=== PATIENT | male | born 1970 | race Caucasian/White ===

== ENCOUNTER 2017-12-12 10:59 | Day surgery (SDC) | payer OTHER ==
[2017-12-07 13:47] VITALS: BMI 27.4
[~2017-12-12 10:59] MED LIST: DEXAMETHASONE SOD PHOSPHATE 10 MG/ML 1 ML VIAL IV ONE; HYDROmorphone 1 MG/ML 1 ML SYRINGE IVP PRN; LACTATED RINGERS 1,000 ML IV SCH; LIDOCAINE 1% 20 ML VIAL (10MG/ML) FOR IV START INTRADERMA PRN; ceFAZolin IN SWFI 2 GM/20 ML SYRINGE IVP ONE
[2017-12-12 11:24] VITALS: RESP 16; TEMP 97.1
[2017-12-12] MEDS ORDERED: ONDANSETRON 4 MG/2 ML VIAL IVP ONE (11:37)
[2017-12-12] MEDS ORDERED: MIDAZOLAM 2 MG/2 ML VIAL IV ONE (11:39)
[2017-12-12] MEDS ORDERED: LIDOCAINE 2% INJ 20 MG/ML SQ ONE ×3 (12:27→13:16)
[2017-12-12] MEDS ORDERED: BUPIVACAINE (PF) 0.5% 30 ML VIAL SQ ONE ×3 (12:27→13:16)
[2017-12-12] MEDS ORDERED: PROPOFOL 10 MG/ML 20 ML VIAL IV ONE (12:51)
[2017-12-12] MEDS ORDERED: fentaNYL (PF) 50 MCG/ML 2 ML AMP ONE (12:51)
[2017-12-12] MEDS ORDERED: LIDOCAINE 1% INJ 10MG/ML (20 ML MDV) ONE (12:51)
[2017-12-12] MEDS ORDERED: LACTATED RINGERS 1,000 ML IV ONE (13:27)
[2017-12-12 14:43] VITALS: BP 116/73; PULSE 93
--- NOTE | 2017-12-12 21:07 | OP ---
OPERATIVE REPORT DATE OF SERVICE: 12/12/2017 PREOPERATIVE DIAGNOSIS: Bilateral carpal tunnel syndrome. FINAL DIAGNOSIS: Bilateral carpal tunnel syndrome. PROCEDURE: Bilateral carpal tunnel release. DESCRIPTION OF PROCEDURE: The following procedure was done identically on each side. The exception was that the tourniquet was used on the right upper arm, and on the left an Esmarch was used to backwrap the forearm for hemostasis. The patient was taken to the Operative Suite where a sedation was administered by the Department of Anesthesia. I then performed a local injection along the line of the incision with a combination of Marcaine and Xylocaine both without epinephrine. The hand was then prepped and draped in the usual manner. The arm was elevated, exsanguinated and the cuff was inflated to 250 mm of mercury. A longitudinal incision was made along the ring finger ray distal to the wrist crease. Dissection was taken through the skin and subcutaneous tissue, initially sharp through the skin and then blunt through the subcutaneous tissue to ensure protection of any potential terminal transverse branches of the palmar cutaneous nerve. The palmar fascia was then incised under direct vision longitudinally exposing the transverse carpal ligament. The transverse carpal ligament also was incised under direct vision. The dissection was then continued proximally beneath the skin under direct vision to release the distal forearm fascia. The median nerve was then reflected free of tenosynovium to ensure no adhesions. The tourniquet was then released. The wound was then irrigated and the skin was closed with a running 5-0 nylon suture. A soft bulky dressing was applied including a volar plaster splint holding the wrist in a neutral slightly extended position. The patient was then taken to the Recovery Room in satisfactory condition. MMODL / IJN: [id number] /
== END 2017-12-12 15:00 | disposition home or self-care (01) ==
LOC: OR 10:59
PROVIDERS: ATTEND Orthopaedic Surgery Hand Surgery
DX: G56.03 Carpal tunnel syndrome, bilateral upper limbs (principal); Z79.899 Other long term (current) drug therapy; Z72.0 Tobacco use
CPT/HCPCS: 64721; J2001 ×2; J2250; J1100; J2405; J3010; J2704

== ENCOUNTER → 2018-04-14 | Outpatient (CLI) | payer OTHER ==
--- NOTE | 2018-04-14 13:24 | XR ---
Lumbar spine HISTORY: Pain, sciatica 3 views of the lumbar spine There is an anterolisthesis grade 1 L5-S1. Anterior margin of L1 shows wedging. There is minimal retr olisthesis grade 1 L1-2. Loss of disc height present T12-L1, L1-2 and there is a kyphosis centered at L1. Sclerosis present in the posterior elements of the lower lumbar spine. There is multilevel spond ylosis. Question spondylolysis at L5. IMPRESSION: Suspect spondylolysis, spinal listhesis L5-S1. There is degenerative disc disease. Facet arthropathy. Kyphosis centered at L1. Question prior anterior compression fracture L1 which may be ch ronic. Lumbar MRI or CT may be of benefit.
== END | disposition home or self-care (01) ==
LOC: RADXRMAIN 12:35
PROVIDERS: ATTEND Physician Assistant
DX: M51.16 Intervertebral disc disorders with radiculopathy, lumbar region (principal); M46.96 Unspecified inflammatory spondylopathy, lumbar region
CPT/HCPCS: 72100

== ENCOUNTER → 2018-04-25 | Outpatient (CLI) | payer OTHER ==
--- NOTE | 2018-04-25 11:23 | MR ---
EXAMINATION TYPE: MR lumbar spine wo con DATE OF EXAM: 04/25/2018 COMPARISON: Plain film dated 04/14/2018 HISTORY: Low back pain, Amaury leg pain TECHNIQUE: Multiplanar, multisequence images of the lumbar spine were acquired. T12-L1: Posterior broad-based disc bulge results in mild to moderate central canal stenosis. There is some facet arthropathy. Circumferential extension of endplate disc complex encroaches somewhat on th e foramina. No abnormal hyperintensity to suggest subacute fracture within the L1 vertebral body. L1-L2: Posterior broad-based disc bulge causes anterior mass effect on the thecal sac but only minima l spinal stenosis, circumferential extension of endplate disc complex encroaches somewhat on the neur al foramina. L2-L3: Broad-based posterior disc bulge causes mild anterior mass effect on the thecal sac. No signif icant foraminal encroachment or central stenosis. L3-L4: No significant spinal stenosis. Broad-based posterior disc bulge causes mild anterior mass eff ect on the thecal sac. There is facet arthropathy with hypertrophy ligamentum flavum. Circumferential disc bulge encroaches somewhat towards the neural foramina. L4-L5: Posterior broad-based disc bulge causes mild anterior mass effect on the thecal sac. Circumfer ential extension endplate disc complex encroaches on the foramina. There is facet arthropathy with hy pertrophy of the ligamentum flavum causing posterior lateral mass effect on the thecal sac. L5-S1: The listhesis contributes to cause spinal stenosis which is moderate to severe, posterior exte nsion of endplate disc complex is also present. Bilateral foraminal encroachment is present. There is marked facet arthropathy change. Lumbar segments are intact. No paraspinal masses are identified. Conus medullaris has a normal appe arance. Anterolisthesis grade 1 present at L5-S1, bilateral spondylolysis suspected at L5, better see n on the right than on the left. There is accentuation of patient's lordosis centered at L1-2, the an terior deformity at L1. There is multilevel spondylosis, endplate discogenic marrow signal change. Lo ss of disc height signal greatest at L5-S1 and L1-2, loss of disc signal L2-3, T12-L1 compatible disc desiccation and degenerative disc disease. There may be a slight spinal curvature. IMPRESSION: Spondylolisthesis, degenerative disc disease, multilevel facet arthropathy, spinal stenosis or tabatha inal encroachment. Additional findings above.
== END | disposition home or self-care (01) ==
LOC: RADMRIMAIN 09:45
PROVIDERS: ATTEND Family Medicine
DX: M48.07 Spinal stenosis, lumbosacral region (principal); M51.25 Other intervertebral disc displacement, thoracolumbar region; M51.26 Other intervertebral disc displacement, lumbar region; M43.17 Spondylolisthesis, lumbosacral region; M51.36 Other intervertebral disc degeneration, lumbar region; M47.816 Spondylosis without myelopathy or radiculopathy, lumbar region; M46.97 Unspecified inflammatory spondylopathy, lumbosacral region
CPT/HCPCS: 72148

== ENCOUNTER 2019-08-11 12:56 | Emergency (ER) | payer OTHER ==
[2019-08-11 13:02] VITALS: RESP 18
[2019-08-11] MEDS ORDERED: SODIUM CHLORIDE 0.9% 1,000 ML IV STA (13:26)
[2019-08-11 13:51] LABS: Basophils % (A) 1 %; Eosinophils # (A) 0.1 k/uL (0-0.7); Eosinophils % (A) 2 %; HGB 16.1 gm/dL (13.0-17.5); Lymphocytes # (A) 2.1 k/uL (1.0-4.8); Lymphocytes % (A) 29 %; MCH 32.9 pg (25.0-35.0); MCHC 33.5 g/dL (31.0-37.0); MCV 98.2 fL (80.0-100.0); Mean Platelet Volume 7.6; Monocytes # (A) 0.3 k/uL (0-1.0); Monocytes % (A) 4 %; Neutrophils # (A) 4.4 k/uL (1.3-7.7); Neutrophils % (A) 62 %; Platelet Count 288 k/uL (150-450); RBC 4.89 m/uL (4.30-5.90); RDW 12.8 % (11.5-15.5); WBC 7.1 k/uL (3.8-10.6)
[2019-08-11 13:53] LABS: Appearance,Urine Clear (Clear); Bilirubin,Urine Negative (Negative); Blood,Urine Negative (Negative); Color,Urine Light Yellow; Glucose,Urine (UA) Negative (Negative); Ketones,Urine Negative (Negative); Leukocyte Esterase,Urine Negative (Negative); Nitrite,Urine Negative (Negative); PH, Urine 6.5 (5.0-8.0); Protein,Urine Negative (Negative); Specific Gravity,Urine 1.009 (1.001-1.035); Urobilinogen,Urine <2.0 mg/dL (<2.0)
[2019-08-11 14:02] LABS: ALT 18 U/L (4-49); AST 25 U/L (17-59); African American GFR (CKD) >90 (>60 ml/min/1.73 sqM); Albumin 4.2 g/dL (3.5-5.0); Alkaline Phosphatase 81 U/L (38-126); Amylase 56 U/L (30-110); Anion Gap 5 mmol/L; Blood Urea Nitrogen 15 mg/dL (9-20); Calcium 9.4 mg/dL (8.4-10.2); Carbon Dioxide 25 mmol/L (22-30); Chloride 107 mmol/L (98-107); Glucose 99 mg/dL (74-99); Non-African American GFR(CKD) >90 (>60 ml/min/1.73 sqM); Potassium 4.5 mmol/L (3.5-5.1); Sodium 137 mmol/L (137-145); Total Bilirubin 0.4 mg/dL (0.2-1.3); Total Protein 6.8 g/dL (6.3-8.2)
[2019-08-11] MEDS ORDERED: MORPHINE SULFATE 4 MG/ML SYRINGE IVP STA (14:46)
--- NOTE | 2019-08-11 14:46 | CT ---
EXAMINATION TYPE: CT abdomen pelvis w con DATE OF EXAM: 08/11/2019 COMPARISON: HISTORY: Abdominal pain, possible hernia CT DLP: 654 mGycm Automated exposure control for dose reduction was used. CONTRAST: Performed with IV Contrast, patient injected with 100 ml mL of Isovue 300. Images were obtained from the diaphragm to the floor the pelvis with IV contrast. Lung bases are clear. There is no pleural effusion. Liver spleen stomach pancreas gallbladder appear normal. Bile ducts are nondilated. There is no adrenal mass. Kidneys show satisfactory contrast opacification. There is no hydronephrosi s. Ureters are not dilated. There is no retroperitoneal adenopathy. Delayed images show normal renal excretion. Bladder distends smoothly. There is no inguinal hernia. There is some mild prostate calcification. There is no evidence of a bowel obstruction. There is large bowel gas down to the rectum. There is no evidence of free air. There is no ascites. There is no mesenteric edema. Appendix is lateral and bes t seen on the coronal images. Appendix appears normal. There is some deformity of the L1 vertebral richard dy with slight anterior wedging that is consistent with an old mild compression fracture. There is a first-degree L5-S1 spondylolisthesis with right side L5 spondylolysis. The bony pelvis appears intact . IMPRESSION: Normal appendix. No sign of acute abdomen and pelvis.
--- NOTE | 2019-08-11 14:46 | ED ---
General Adult HPI - General Chief complaint: Urogenital Stated complaint: Abd/Groin Pain Source: patient, RN notes reviewed Mode of arrival: wheelchair Limitations: physical limitation - History of Present Illness Initial comments: 49-year-old male presents to the emergency department for a chief complaint of abdominal pain. Patient states that about 3 weeks ago he started to have a lump in his left groin area. Patient states he pointed it out to his doctor who said it was a hernia and scheduled him an appointment with a surgeon for Tuesday. He did not have any pain at that time. However 2 days ago he started to have pain in this area so came to the emergency room. Patient states it hurts to stand up but feels better with bending over.Patient has no other complaints at this time including shortness of breath, chest pain, nausea or vomiting, headache, or visual changes. - Related Data Home Medications Medication Instructions Recorded Confirmed SUMAtriptan SUCCINATE [Imitrex] 50 mg PO ONCE PRN 12/12/17 08/11/19 Allergies Allergy/AdvReac Type Severity Reaction Status Date / Time aspirin AdvReac Nausea Verified 08/11/19 14:56 Review of Systems ROS Statement: Those systems with pertinent positive or pertinent negative responses have been documented in the HPI. ROS Other: All systems not noted in ROS Statement are negative. Past Medical History Additional Past Medical History / Comment(s): carpel tunnel ana wrists History of Any Multi-Drug Resistant Organisms: None Reported Past Surgical History: Orthopedic Surgery Additional Past Surgical History / Comment(s): rt shoulder,vasectomy Past Anesthesia/Blood Transfusion Reactions: No Reported Reaction Past Psychological History: No Psychological Hx Reported Smoking Status: Current every day smoker Past Alcohol Use History: None Reported Past Drug Use History: None Reported - Past Family History Mother Family Medical History: No Reported History General Exam Limitations: physical limitation General appearance: alert, in no apparent distress Head exam: Present: atraumatic, normocephalic, normal inspection Eye exam: Present: normal appearance, PERRL, EOMI. Absent: scleral icterus, conjunctival injection, periorbital swelling ENT exam: Present: normal exam, mucous membranes moist Neck exam: Present: normal inspection. Absent: tenderness, meningismus, lymphadenopathy Respiratory exam: Present: normal lung sounds bilaterally. Absent: respiratory distress, wheezes, rales, rhonchi, stridor Cardiovascular Exam: Present: regular rate, normal rhythm, normal heart sounds. Absent: systolic murmur, diastolic murmur, rubs, gallop, clicks GI/Abdominal exam: Present: soft, normal bowel sounds. Absent: distended, tenderness, guarding, rebound, rigid exam: Present: other (Slight bulge to the left groin area) Course Vital Signs 08/11/19 08/11/19 12:57 15:00 Temperature 98 F 98.1 F Pulse Rate 62 67 Respiratory 18 18 Rate Blood Pressure 135/85 123/95 O2 Sat by Pulse 99 98 Oximetry Medical Decision Making - Medical Decision Making Vitals are stable. CBC CMP unremarkable. Urinalysis is negative. CT abdomen and pelvis shows a normal appendix without sign of acute abdomen or pelvis. However there is an addendum that does show a left-sided inguinal hernia containing fat. No evidence of a bowel obstruction. Patient was given morphine and had significant improvement pain. Sling much better at this time. Patient has an appointment with Dr. Lazo on Tuesday and will follow-up at that time. However I did discussed return parameters including signs of an incar cerated or strangulated hernia for which he should return for immediately. - Lab Data Result diagrams: 08/11/19 13:40 08/11/19 13:38 Lab Results 08/11/19 08/11/19 08/11/19 Range/Units 13:38 13:38 13:38 WBC (3.8-10.6) k/uL RBC (4.30-5.90) m/uL Hgb (13.0-17.5) gm/dL Hct (39.0-53.0) % MCV (80.0-100.0) fL MCH (25.0-35.0) pg MCHC (31.0-37.0) g/dL RDW (11.5-15.5) % Plt Count (150-450) k/uL Neutrophils % % Lymphocytes % % Monocytes % % Eosinophils % % Basophils % % Neutrophils # (1.3-7.7) k/uL Lymphocytes # (1.0-4.8) k/uL Monocytes # (0-1.0) k/uL Eosinophils # (0-0.7) k/uL Basophils # (0-0.2) k/uL Sodium 137 (137-145) mmol/L Potassium 4.5 (3.5-5.1) mmol/L Chloride 107 (98-107) mmol/L Carbon Dioxide 25 (22-30) mmol/L Anion Gap 5 mmol/L BUN 15 (9-20) mg/dL Creatinine 0.73 (0.66-1.25) mg/dL Est GFR (CKD-EPI)AfAm >90 (>60 ml/min/1.73 sqM) Est GFR (CKD-EPI)NonAf >90 (>60 ml/min/1.73 sqM) Glucose 99 (74-99) mg/dL Plasma Lactic Acid Brett 1.3 (0.7-2.0) mmol/L Calcium 9.4 (8.4-10.2) mg/dL Total Bilirubin 0.4 (0.2-1.3) mg/dL AST 25 (17-59) U/L ALT 18 (4-49) U/L Alkaline Phosphatase 81 (38-126) U/L Total Protein 6.8 (6.3-8.2) g/dL Albumin 4.2 (3.5-5.0) g/dL Amylase 56 (30-110) U/L Lipase 55 (23-300) U/L Urine Color Light Yellow Urine Appearance Clear (Clear) Urine pH 6.5 (5.0-8.0) Ur Specific [place] 1.009 (1.001-1.035) Urine Protein Negative (Negative) Urine Glucose (UA) Negative (Negative) Urine Ketones Negative (Negative) Urine Blood Negative (Negative) Urine Nitrite Negative (Negative) Urine Bilirubin Negative (Negative) Urine Urobilinogen <2.0 (<2.0) mg/dL Ur Leukocyte Esterase Negative (Negative) 08/11/19 Range/Units 13:40 WBC 7.1 (3.8-10.6) k/uL RBC 4.89 (4.30-5.90) m/uL Hgb 16.1 (13.0-17.5) gm/dL Hct 48.0 (39.0-53.0) % MCV 98.2 (80.0-100.0) fL MCH 32.9 (25.0-35.0) pg MCHC 33.5 (31.0-37.0) g/dL RDW 12.8 (11.5-15.5) % Plt Count 288 (150-450) k/uL Neutrophils % 62 % Lymphocytes % 29 % Monocytes % 4 % Eosinophils % 2 % Basophils % 1 % Neutrophils # 4.4 (1.3-7.7) k/uL Lymphocytes # 2.1 (1.0-4.8) k/uL Monocytes # 0.3 (0-1.0) k/uL Eosinophils # 0.1 (0-0.7) k/uL Basophils # 0.0 (0-0.2) k/uL Sodium (137-145) mmol/L Potassium (3.5-5.1) mmol/L Chloride (98-107) mmol/L Carbon Dioxide (22-30) mmol/L Anion Gap mmol/L BUN (9-20) mg/dL Creatinine (0.66-1.25) mg/dL Est GFR (CKD-EPI)AfAm (>60 ml/min/1.73 sqM) Est GFR (CKD-EPI)NonAf (>60 ml/min/1.73 sqM) Glucose (74-99) mg/dL Plasma Lactic Acid Brett (0.7-2.0) mmol/L Calcium (8.4-10.2) mg/dL Total Bilirubin (0.2-1.3) mg/dL AST (17-59) U/L ALT (4-49) U/L Alkaline Phosphatase (38-126) U/L Total Protein (6.3-8.2) g/dL Albumin (3.5-5.0) g/dL Amylase (30-110) U/L Lipase (23-300) U/L Urine Color Urine Appearance (Clear) Urine pH (5.0-8.0) Ur Specific [place] (1.001-1.035) Urine Protein (Negative) Urine Glucose (UA) (Negative) Urine Ketones (Negative) Urine Blood (Negative) Urine Nitrite (Negative) Urine Bilirubin (Negative) Urine Urobilinogen (<2.0) mg/dL Ur Leukocyte Esterase (Negative) Disposition Clinical Impression: Inguinal hernia Disposition: HOME SELF-CARE Condition: Good Instructions (If sedation given, give patient instructions): Inguinal Hernia (ED) Additional Instructions: Please follow-up with your surgeon in 1-2 days. Please return here to the emergency room if you have any worsening symptoms such as severe pain with bulge or uncontrolled vomiting. Is patient prescribed a controlled substance at d/c from ED?: No Referrals: Reginald Wesley DO [Primary Care Provider] - 1-2 days Time of Disposition: 16:12
[2019-08-11 15:32] VITALS: TEMP 98.1
[2019-08-11 16:26] VITALS: BP 133/88; PULSE 62
== END 2019-08-11 16:24 | disposition home or self-care (01) ==
LOC: EC 12:56
DX: K40.90 Unilateral inguinal hernia, without obstruction or gangrene, not specified as recurrent (principal); F17.200 Nicotine dependence, unspecified, uncomplicated; Z88.6 Allergy status to analgesic agent
CPT/HCPCS: 36415; 80053; 82150; 83605; 83690; 85025; 81003; 74177; 99284; 96374; 96361; J2270; Q9967

== ENCOUNTER → 2019-08-14 | Outpatient (CLI) | payer OTHER | END | disposition home or self-care (01) | LOC: LABPAT 12:14 | PROVIDERS: ATTEND Surgery Plastic and Reconstructive Surgery | DX: Z01.810 Encounter for preprocedural cardiovascular examination (principal) | CPT/HCPCS: 93005 ==

== ENCOUNTER → 2019-09-07 | Day surgery (SDC) | payer OTHER ==
[2019-09-04 09:41] VITALS: BMI 23.6
--- NOTE | 2019-09-06 21:09 | P.GSHP ---
History of Present Illness H&P Date: 09/07/19 CHIEF COMPLAINT: Inguinal hernia, left HISTORY OF PRESENT ILLNESS: The patient is a 49-year-old male who presents with a history of swelling and pain along the left groin. He's noted increased swelling including pain of the area. Now he presents for repair of his inguinal hernia. PAST MEDICAL HISTORY: Please see list. PAST SURGICAL HISTORY: Please see list. MEDICATIONS: Please see list. ALLERGIES: Please see list. SOCIAL HISTORY: Please see list. FAMILY HISTORY: Please see list. REVIEW OF ORGAN SYSTEMS: CONSTITUTIONAL: No reports of fevers or chills. No reports of weight loss despite prior attempts. GI: Denies any blood in stools or constipation. PHYSICAL EXAM: VITAL SIGNS: Stable GENERAL: Well-developed pleasant male in no acute distress. HEENT: No scleral icterus. Extraocular movements grossly intact. Moist buccal mucosa. NECK: Supple without lymphadenopathy. CHEST: Unlabored respirations. Equal bilateral excursions. CARDIOVASCULAR: Regular rate and rhythm. Distal 2+ pulses. ABDOMEN: Soft, nondistended. No peritoneal signs. Palpable defect of the left groin. MUSCULOSKELETAL: No clubbing, cyanosis, or edema. ASSESSMENT: 1. Inguinal hernia, left PLAN: 1. Recommend proceeding with a robotic inguinal repair with mesh with possible bilateral approach. 2. Benefits and risks of surgical intervention was discussed including possibility of open technique. 3. DVT prophylaxis. 4. Antibiotic prophylaxis. Past Medical History Additional Past Medical History / Comment(s): migraines, hernia History of Any Multi-Drug Resistant Organisms: None Reported Past Surgical History: Orthopedic Surgery Additional Past Surgical History / Comment(s): rt shoulder rotator cuff surgery ,vasectomy, ana carpal tunnel Past Anesthesia/Blood Transfusion Reactions: No Reported Reaction Smoking Status: Current every day smoker - Past Family History Mother Family Medical History: No Reported History Medications and Allergies Home Medications Medication Instructions Recorded Confirmed Type SUMAtriptan succinate [Imitrex] 50 mg PO ONCE PRN 12/12/17 09/04/19 History Acetaminophen Tab [Tylenol] 650 mg PO Q4H PRN 08/22/19 09/04/19 History Allergies Allergy/AdvReac Type Severity Reaction Status Date / Time aspirin AdvReac Nausea Verified 09/04/19 09:30
[~2019-09-07] MED LIST changes: +ACETAMINOPHEN TAB 500 MG TAB PO STA; +BUPIVACAINE (PF) 0.25% 30 ML VIAL SQ ONE; +GABAPENTIN 300 MG CAP PO STA; +GLYCOPYRROLATE 0.2 MG/ML 2 ML VIAL ONE; +HEPARIN SODIUM,PORCINE 5,000 UNIT/ML 1 ML VIAL SQ ONE; +HYDROmorphone 0.5 MG/0.5 ML SYRINGE IVP PRN; -HYDROmorphone 1 MG/ML 1 ML SYRINGE IVP PRN; +LACTATED RINGERS 1,000 ML IV ONE; +LIDOCAINE 1% (10MG/ML) FOR IV START INTRADERMA PRN; -LIDOCAINE 1% 20 ML VIAL (10MG/ML) FOR IV START INTRADERMA PRN; +LIDOCAINE 1% INJ 10MG/ML (20 ML MDV) ONE; +MIDAZOLAM 2 MG/2 ML VIAL IV ONE; +NEOSTIGMINE 1 MG/ML 10 ML VIAL ONE; +ONDANSETRON 4 MG/2 ML VIAL IVP ONE; +PHENYLEPHRINE-0.9% NACL SYG 1 MG/10 ML SYRINGE ONE; +PROPOFOL 10 MG/ML 20 ML VIAL IV ONE; +ROCURONIUM BROMIDE 10 MG/ML 5 ML VIAL IV ONE; +ROPIVACAINE 5 MG/ML 30 ML VIAL ONE; +SCOPOLAMINE 1.5MG/72HR PATCH TRANSDERM ONE; +SUCCINYLCHOLINE CHLORIDE 100 MG/5 ML SYR IV ONE; +TAMSULOSIN 0.4 MG CAP.ER.24H PO STA; -ceFAZolin IN SWFI 2 GM/20 ML SYRINGE IVP ONE; +ePHEDrine SULFATE/0.9% NACL/PF 50 MG/5 ML SYRINGE IV ONE; +fentaNYL (PF) 50 MCG/ML 2 ML AMP IV ONE; +fentaNYL (PF) 50 MCG/ML 2 ML AMP ONE
--- NOTE | 2019-09-07 12:54 | P.OP ---
Date of Procedure: 09/07/19 Description of Procedure: Date of Procedure: 09/07/19 SURGEON: IRAM JOHNSON MD PREOPERATIVE DIAGNOSES: 1. Initial left inguinal hernia 2. History of migraines 3. Tobacco use POSTOPERATIVE DIAGNOSES: 1. Initial left inguinal hernia, direct 2 cm, reducible 2. History of migraines 3. Tobacco use OPERATION: 1. Robotic assisted da Sergey Xi laparoscopic reduction and repair of left inguinal hernia repair with ventralight ST mesh, 11.4 cm. Anesthesia: GETA, local Estimated Blood Loss (ml): 20 Pathology: other (Left inguinal hernia sac) Condition: stable Disposition: floor COMPLICATIONS: None. Operative Findings: 1. Direct initial left inguinal hernia, 2 cm, type III 2. Unremarkable right groin INDICATIONS: The patient is a 49-year-old gentleman who presents with history of left inguinal hernia. Now presents for definitive surgical intervention. Laparoscopic versus open and robotic approaches were discussed. Benefits and risks including bleeding, infection, injury to the vas deferens as well as sterility and chronic groin pain were reviewed. Placement of mesh was also described. Informed consent was obtained. DESCRIPTION: In the preoperative area, the patient was marked with indelible marker along the left groin. The patient was brought to the operating room and laid in supine position. After general induction, the abdomen had been prepped and draped in standard sterile fashion. Ioban draping was also placed. Prior to incision, a timeout protocol was confirmed with surgical team regarding patient's name including procedures to be performed and location along the left groin. Initial positioning for the robotic assisted ports were selected whereby 20 cm superior to the target anatomy, 0 degree 5 mm laparoscopic trocar entry was performed at the left upper quadrant. The abdomen was insufflated to 15 mmHg which he had tolerated well. Diagnostic laparoscopy demonstrated in the left groin with a direct left inguinal hernia 2 cm in size. The right groin was unremarkable. Next, along the epigastrium, 8 mm robot trocar was placed. An 8-mm robotic trocar was placed under direct visualization at the right upper quadrant. The 5 mm port was exchanged for a 8 mm trocar. All trocars were positioned between 8 to 10-cm apart from each other. The patient was placed in steep reverse Trendelenburg position, 16. The [employer] XI robot was primed, draped, prepared for docking along the upper abdomen of the patient. I then went to the [employer] console. The orthodontic assistant was at bedside for exchange of the robot arms and equipment. At the left groin, 2 cm direct inguinal hernia was identified. The hernia sac was evaginated whereby the peritoneum was scored using Endo scissors with cautery. Once completely reduced into the abdominal cavity, the peritoneal sac of the hernia was identified. The sac was resected and then passed off for further pathological analysis. The size of the hernia defect was 2 cm with intraoperative films obtained. Using a 2-0 VLOC nonabsorbable, the peritoneal defect of the left inguinal hernia site was closed using a pursestring suture. The defect was found to be completely closed with complete reduction of the left inguinal hernia was confirmed. As an onlay, an 11.[address] mesh by [employer] was cut in half and entered into the abdominal cavity via the 8 mm trocar. The mesh was tacked to the pelvis using 2-0 VLOC x 9-inch length sutures. The robot was undocked from the patient's bedside. I then rescrubbed into the case. Insufflation was released from the abdominal cavity and all instruments were removed from the abdominal cavity. The rest of incisions were reapproximated using 4-0 Monocryl in a running subcuticular fashion. Local anesthetic was placed along the incision including for a groin block. Incisions were cleansed using dilute hydrogen peroxide. Liquid glue was applied to the skin. At the end of the procedure, the needle, sponge and instrument counts had been verified correct by the surgical services manager. The patient had tolerated the procedure well and was taken to the postanesthesia care unit in stable condition. Intraoperative findings were described to the patient's family who were pleased with the level of care. Plan - Discharge Summary Discharge Rx Participant: Yes New Discharge Prescriptions: New Acetaminophen Tab [Tylenol Tab] 500 mg PO Q6H PRN #30 tablet PRN Reason: Pain Continue SUMAtriptan succinate [Imitrex] 50 mg PO BID PRN PRN Reason: Migraine Headache Discharge Medication List SUMAtriptan succinate [Imitrex] 50 mg PO BID PRN 12/12/17 [History] Acetaminophen Tab [Tylenol Tab] 500 mg PO Q6H PRN #30 tablet 09/07/19 [Rx] Follow up Appointment(s)/Referral(s): Iram Johnson MD [STAFF PHYSICIAN] - 09/20/19 1:20 pm Patient Instructions/Handouts: *Surgery [facility] - (Anesthesia) Discharge Instructions Outpatient Surgery, Laparoscopic Herniorrhaphy (DC) Activity/Diet/Wound Care/Special Instructions: No lifting over 10 pounds in 2 weeks until Sep 20June shower. No bath tub soaks for two weeks until Sep 20 Diet as tolerated. No driving while on narcotics. Use Tylenol and ibuprofen or Aleve scheduled for the next 24-48 hours for best pain relief. Use ice along incisions for the today to prevent swelling. Discharge Disposition: HOME SELF-CARE
[2019-09-07 13:04] VITALS: TEMP 97
--- NOTE | 2019-09-07 13:55 | P.ANPRN ---
Procedure Note - Anesthesia - Nerve Block Performed Bilateral Transversus Abdominis Single Time Out Performed: Yes (1023) Date of Procedure: 09/07/19 Procedure Start Time: Procedure Stop Time: Location of Patient: PreOp Indication: Acute Post-Operative Pain, Requested by Surgeon Specifically requested for management of pain by : Iram Johnson Sedation Type: Sedate with meaningful contact maintained Preparation: Sterile Prep Position: Supine Catheter: None Needle Types: Pajunk Needle Gauge: 21 Ultrasound used to visualize needle placement: Yes Ultrasound used to observe medication spread: Yes Injectate: 0.5% Ropivacaine (see comment for volume) (30cc total 15cc each side) Blood Aspirated: No Pain Paresthesia on Injection Noted: No Resistance on Injection: Normal Image Stored and Saved: Yes Events: Uneventful and Well Tolerated
[2019-09-07 14:08] VITALS: RESP 16
[2019-09-07 14:43] VITALS: BP 100/63; PULSE 57
== END | disposition home or self-care (01) ==
LOC: OR 09:06
PROVIDERS: ATTEND Surgery Plastic and Reconstructive Surgery
DX: K40.90 Unilateral inguinal hernia, without obstruction or gangrene, not specified as recurrent (principal); G43.909 Migraine, unspecified, not intractable, without status migrainosus; Z98.890 Other specified postprocedural states; Z98.52 Vasectomy status; F17.200 Nicotine dependence, unspecified, uncomplicated; Z88.6 Allergy status to analgesic agent
CPT/HCPCS: 49650; S2900; 64488; 88302

== ENCOUNTER → 2020-02-20 | Outpatient (CLI) | payer OTHER ==
--- NOTE | 2020-02-20 07:31 | MR ---
EXAMINATION TYPE: MR shoulder RT wo con DATE OF EXAM: 02/20/2020 COMPARISON: None. HISTORY: Pain in right shoulder TECHNIQUE: Multiplanar, multisequence imaging of the right shoulder is performed without contrast. FINDINGS: Exam is suboptimal as patient unable to hold still. Rotator Cuff: Some increased signal in the distal supraspinatus and infraspinatus tendons with thicke donna, in addition small protocol cleft tear at articular surface coronal image 18 near the junction o f the supraspinatus and infraspinatus tendons. Subscapularis tendon is thickened with increased signa l. Rotator cuff muscle bulk shows mild atrophy of the subscapularis muscle Acromioclavicular Joint: Moderate to severe narrowing with possible underlying fat plane. Mass effect near myotendinous junction is present. Glenohumeral Joint: Moderate to severe narrowing with prominent spur along the inferior medial margin of the humeral head. Moderate to large sized glenohumeral joint effusion. Labrum: The superior labrum shows diffuse increased signal consistent with degenerative tear. Biceps Tendon: The long head of biceps is in the bicipital groove. There is significant surrounding f luid with anterior positioning of the tendon. Abnormal curvilinear intermediate signal superior to th e femoral head for reference coronal image 11 causes thinning and superior deviation of the intracaps ular portion long head of biceps tendon, etiology uncertain. Perhaps significantly thickened tendon. Bone marrow signal: Marked subchondral cystic change involving the osseous glenoid posterior aspect e xtending anteriorly inferiorly. Other: Increased fluid signal subdeltoid/subacromial bursa. IMPRESSION: Fairly advanced degenerative changes as detailed above especially for patient's chronolog ic age. Significant tendinosis involving subscapularis tendon and intracapsular portion long head of biceps tendon is felt present. Less prominent tendinosis of the supraspinatus and infraspinatus tendo ns.
== END | disposition home or self-care (01) ==
LOC: RADMRIMAIN 06:40
PROVIDERS: ATTEND Orthopaedic Surgery Sports Medicine
DX: M19.011 Primary osteoarthritis, right shoulder (principal); M75.81 Other shoulder lesions, right shoulder

== ENCOUNTER → 2020-02-26 | Outpatient (CLI) | payer OTHER ==
[2020-02-26 08:13] LABS: HCT 41.2 % (39.0-53.0); HGB 14.1 gm/dL (13.0-17.5); MCH 33.3 pg (25.0-35.0); MCHC 34.2 g/dL (31.0-37.0); MCV 97.2 fL (80.0-100.0); Mean Platelet Volume 7.5; Platelet Count 279 k/uL (150-450); RBC 4.24 m/uL (4.30-5.90); RDW 12.2 % (11.5-15.5); WBC 7.9 k/uL (3.8-10.6)
[2020-02-26 08:23] LABS: ALT 17 U/L (4-49); AST 22 U/L (17-59); African American GFR (CKD) >90 (>60 ml/min/1.73 sqM); Albumin 3.9 g/dL (3.5-5.0); Alkaline Phosphatase 79 U/L (38-126); Anion Gap 3 mmol/L; Blood Urea Nitrogen 23 mg/dL (9-20); Calcium 9.1 mg/dL (8.4-10.2); Carbon Dioxide 31 mmol/L (22-30); Chloride 105 mmol/L (98-107); Glucose 96 mg/dL (74-99); Non-African American GFR(CKD) >90 (>60 ml/min/1.73 sqM); Potassium 4.3 mmol/L (3.5-5.1); Sodium 139 mmol/L (137-145); Total Bilirubin 0.4 mg/dL (0.2-1.3); Total Protein 6.5 g/dL (6.3-8.2)
[2020-02-26 08:27] LABS: INR 0.9 (<1.2); Partial Thromboplastin Time 23.3 sec (22.0-30.0); Prothrombin Time 9.9 sec (9.0-12.0)
[2020-02-26 08:34] LABS: Appearance,Urine Clear (Clear); Bilirubin,Urine Negative (Negative); Blood,Urine Negative (Negative); Color,Urine Yellow; Glucose,Urine (UA) Negative (Negative); Ketones,Urine Negative (Negative); Leukocyte Esterase,Urine Negative (Negative); Nitrite,Urine Negative (Negative); Protein,Urine Negative (Negative); Specific Gravity,Urine 1.031 (1.001-1.035); Urobilinogen,Urine <2.0 mg/dL (<2.0)
== END | disposition home or self-care (01) ==
LOC: LABPAT 07:24
PROVIDERS: ATTEND Orthopaedic Surgery Sports Medicine
DX: Z01.818 Encounter for other preprocedural examination (principal); Z01.812 Encounter for preprocedural laboratory examination
CPT/HCPCS: 36415; 80053; 81003; 85027; 85610; 85730; 87070

== ENCOUNTER → 2020-03-10 | Outpatient (CLI) | payer OTHER ==
--- NOTE | 2020-03-10 10:44 | CT ---
EXAMINATION TYPE: CT lumbar spine wo con DATE OF EXAM: 03/10/2020 9:41 AM COMPARISON: MRI lumbar spine April 25, 2018 HISTORY: Low back pain CT DLP: 433.3 mGycm Automated exposure control for dose reduction was used. Unenhanced CT of the lumbar spine was performed. Bone and soft tissue window settings are submitted as well as coronal and sagittal reconstructions. There are 5 lumbar-type vertebra. Bilateral pars defect L5 level with stable grade 1 anterolisthesis L5 on S1. Stable mild disc space narrowing at this level. Stable mild to moderate disc space narrowin g L1-L2 level with vacuum disc phenomenon. There is a truncated appearance to the anterior aspect of the L1 vertebra this is unchanged from prior MRI. Slight grade 1 retrolisthesis L1 on L2 stable. Axial images at T12-L1 level show mild to moderate broad disc bulge mildly effacing the anterior thec al sac without significant neural foraminal narrowing. Axial images at L1-L2 levels with spondylolisthesis and broad-based posterior disc protrusion mildly effacing the anterior thecal sac, patent bilateral neural foramina. Axial images at L2-L3 level remain within normal limits. Axial images at L3-L4 level show mild facet degenerative changes and ligamentum flavum hypertrophy wi th mild broad disc bulge minimally effacing the anterior thecal sac, there is mild bilateral anterior inferior neural foraminal narrowing. Axial images at the L4-L5 level show [id number] broad disc bulge with central disc protrusion c omponent mildly effacing intrathecal sac. There is moderate to advanced facet degenerative changes bi laterally. There is moderate bilateral neural foraminal narrowing. Axial images at L5-S1 level show spondylolisthesis with pseudodisc herniation and advanced facet arth ropathy contributing to spinal canal narrowing. Persistent moderate to severe right greater than left bilateral neural foraminal narrowing. Mild to moderate calcified plaque of the aorta extends into branch vessels. IMPRESSION: No significant change from prior MRI. Spondylolisthesis and degenerative change L5-S1 lev el. Truncated appearance to the anterior L1 vertebra. Subtle spondylolisthesis of L1 on L2 redemonstr ated. Multilevel degenerative changes as detailed above.
== END | disposition home or self-care (01) ==
LOC: RADCTMAIN 09:21
PROVIDERS: ATTEND Orthopaedic Surgery
DX: M43.16 Spondylolisthesis, lumbar region (principal); M47.816 Spondylosis without myelopathy or radiculopathy, lumbar region; Z88.6 Allergy status to analgesic agent
CPT/HCPCS: 72131

== ENCOUNTER → 2020-04-02 | Outpatient (CLI) | payer OTHER ==
--- NOTE | 2020-04-02 11:16 | XR ---
EXAMINATION TYPE: XR chest 2V DATE OF EXAM: 04/02/2020 COMPARISON: NONE HISTORY: Z01.818 TECHNIQUE: Frontal and lateral views of the chest are obtained. FINDINGS: There is no focal air space opacity, pleural effusion, or pneumothorax seen. The cardiac silhouette size is within normal limits. The osseous structures are intact, lordosis noted to the m id to lower thoracic spine, there is thoracic spondylosis. There are prominent lung volumes which can be seen with COPD. IMPRESSION: No acute cardiopulmonary process.
== END | disposition home or self-care (01) ==
LOC: RADXRMAIN 09:13
PROVIDERS: ATTEND Nurse Practitioner Family
DX: Z01.818 Encounter for other preprocedural examination (principal)
CPT/HCPCS: 71046

== ENCOUNTER 2020-04-08 06:13 | Inpatient (IN) | payer OTHER ==
[2020-04-01 16:13] VITALS: BMI 26.6
--- NOTE | 2020-04-07 15:40 | P.HPOR ---
History of Present Illness H&P Date: 03/27/20 Chief Complaint: lOW BACK PAIN B/L LE WEAKNESS RADICULOPTHY Patient presents with low back pain. He notes pain for the past 2 years .Patient notes pain that radiates across his back. He also notes bilateral lower extremity numbness. He has night time symptoms. Patient notes increased pain with prolonged standing. Patient ambulates independently. He does not take pain medications. He states has been getting worse. On follow-up he continues to have numbness and tingling into his now block region. It is not in his groin yet but he states every now and then he feels like it is moving into that area. He has severe buttock pain bilaterally as well as in place. The sternum weakness in his lower extremities as well as progressive. Review of Systems 14 points review of systems completed and as stated in HPI, all other systems reviewed are negative. Past Medical History Past Medical History: Musculoskeletal Disorder, Osteoarthritis (OA) Additional Past Medical History / Comment(s): frequent migraine headaches especially w/stressful situations, pain & burning down both legs History of Any Multi-Drug Resistant Organisms: None Reported Past Surgical History: Hernia Repair, Orthopedic Surgery Additional Past Surgical History / Comment(s): rt shoulder rotator cuff surgery ,vasectomy, ana carpal tunnel, robotic laparoscopic repair left inguinal hernia Past Anesthesia/Blood Transfusion Reactions: No Reported Reaction Smoking Status: Former smoker - Past Family History Mother Family Medical History: No Reported History Medications and Allergies Home Medications Medication Instructions Recorded Confirmed Type SUMAtriptan succinate [Imitrex] 50 mg PO BID PRN 12/12/17 04/01/20 History LORazepam [Ativan] 0.5 mg PO BID PRN 04/01/20 04/01/20 History Levocetirizine Dihydrochloride 5 mg PO DAILY 04/01/20 04/01/20 History [Xyzal] Mirtazapine [Remeron] 15 mg PO HS 04/01/20 04/01/20 History Montelukast [Singulair] 10 mg PO DAILY 04/01/20 04/01/20 History fluvoxaMINE [Luvox] 50 mg PO HS 04/01/20 04/01/20 History hydrOXYzine pamoate [Vistaril] 50 mg PO DIRECTED PRN 04/01/20 04/01/20 History risperiDONE 2 mg PO QAM 04/01/20 04/01/20 History risperiDONE 3 mg PO HS 04/01/20 04/01/20 History Allergies Allergy/AdvReac Type Severity Reaction Status Date / Time aspirin AdvReac Nausea Verified 04/01/20 15:37 Physical Examination Osteopathic Statement: *. No significant issues noted on an osteopathic structural exam other than those noted in the History and Physical/Consult. General: Awake, alert, appropriate for age, in no acute distress. HEENT: No unusual neck masses around region of lateral neck triangle, thyroid, supraclavicular groove Heart: Regular rate and rhythm, normal S1, S2 and no murmur/gallop. Lungs: Clear to auscultation bilaterally with no use of accessory muscles. Extremities: Skin warm and dry without acute lesions, coloration, temperature, skin intact, no tenderness or erythema Integument: Hairy patches: Absent Dorsal skin dimples: Absent Cafe au lait spots: Absent Palpation: Please see Pain drawing on Intake sheet for further detail. Midline spinal tenderness: yes lumbar E6 Paralumbar tenderness: yes bilateral E6 Parathoracic tenderness: No E6 Buttocks tenderness: yes bilateral E6 POSTURAL and MUSCULO-SKELETAL EVALUATION: Coronal Balance: Neutral Recumbent testing: Patient is able to lay flat on back Sagittal Balance: Neutral Shoulder Profile: [Level] Pelvic Girdle: [Level] Neck ROM: Unrestricted Lumbar ROM: some restrictions Shoulder ROM: Symmetric in abduction, ER/IR Hip ROM: Symmetric in abduction, adduction, ER/IR Knee ROM: Symmetric and intact in Flexion / extension VASCULAR STATUS : LEFT RIGHT Wrist Pulses intact intact Pedal Pulses (Dors. pedis & post.tibialis) intact intact Color normal normal Edema Absent Absent Cranial Nerves: I: Olfactory not tested. II: Visual acuity normal, no visual field deficit noted with confrontation. III,IV: Normal pupillary reflexes & intact extraocular movements without nystagmus. V,: Intact symmetrical facial sensation. VII: Intact symmetrical facial motor movement VIII: Hearing intact. IX,X: Intact gag, swallow, & normal voice. XI: Sternocleidomastoid, trapezius function intact. XII: Tongue midline with normal movements. L'hermitte's Sign: Negative / absent Spurling'Sign: Absent bilaterally. Cubital percussion test: Absent bilaterally. Ramila-Tinel sign - Carpal region: Absent bilaterally. Straight Leg Raising: positive Crossed straight leg raise: negative O8 MOTOR EXAM (0-5/5, N/T) STRENGTH RIGHT LEFT Shoulder Abd (not part of the ERNESTO score) 5 5 Elbow Flexors 5 5 Elbow Extensor 5 5 Wrist Dorsiflexors 5 5 Finger Abductor 5 5 Acupressure Therapist 5 5 Hip Flexor (Not part of ERNESTO Motor score) 5 5 Knee Flexor 5 5 Knee Extensor 5 5 Ankle dorsiflexor 5 5 Ankle plantarflexion 5 5 Extensor hallucis 5 5 REFLEXES(0-4/2, NT) RIGHT LEFT Upper Extremities 2 2 Lower Extremities 2 2 Pathological Reflexes RIGHT LEFT Nevarez's Absent Absent Clonus Absent Absent Sensory system (0-4, N/T) Test type RU SHAY RL LL Joint-Position 2 2 2 2 Vibration 2 2 2 2 Pain & LT sense 2 2 2 2 Dermatomal Deficit: none none none none Gait and Functional Evaluation: Romberg's test: Intact bilaterally Toe heel walk / heel-toe walk intact while maintaining satisfactory balance? yes Squatting/straightening w/o assistance to a min of 60 degree knee flexion? yes Single leg stance: intact Trendelenburg sign negative bilaterally Hand and finger dexterity intact bilaterally? yes Disdiadochokinesis examination negative bilaterally? yes Results AP lateral flexion extension films of the lumbar spine obtained and reviewed in the office. This demonstrates L5-S1 spondylolysis with a grade 2 anteriorlisthesis which is unstable and measure on 11 mm. There are no other fractures or dislocations. Overall alignment besides this is well-maintained. There is facet arthrosis noted L5-S1. AP pelviscongruent femoral last Ana Lilia joints with moderate osteoarthritic changes no fractures dislocation level pelvis CT and MRI also reviewed wrist demonstrate grade 12 spondylolisthesis L5-S1 with spondylolysis and this level. There are bilateral pars defects. There is severe stenosis caused by this. There is disc degeneration L5-S1 as well as is noted. This causes stenosis as well as listhesis. There are no other fractures or dislocations otherwise vertebral heights and bodies are maintained as well as disc heights above this. Assessment and Plan Assessment: 49-year-old male L5-S1 spondylolysis with grade 1 and grade 2 spondylolisthesis, unstable neurogenic claudication Plan: Spine Surgery Risk Review Wiliam Tarango is a 49-year-old male presenting for evaluation of back pain and bilateral lower extremity weakness radiculopathy and buttock pain. It was my pleasure to have seen and examined Wiliam Tarango . In our visit today we have had a chance to go over subjective complaints, physical examination findings and treatments including the natural course history without intervention and various interventional options. The patients imaging demonstrates spondylolysis bilateral L5-S1 with unstable listhesis grade 1 to grade 2. On physical exam, Wiliam Tarango demonstrates neurogenic claudication lower extremity radiculopathy severe low back pain and buttock pain. I have explained to the patient that as their condition progresses it will cause further neurological deficits and eventual paralysis. Based on the patients imaging, physical exam, and the rapid progression and disabling nature of their symptoms, at this time I recommend surgery in the form or a: Lumbar fusion and decompression. I discussed the risk and benefits of this procedure at length with Wiliam Tarango . The patient and his agreed to considered pursuing the procedure abovementioned. Prior to surgery, she should follow up with her PCP (Cardio, ID, IM etc) for clearance. Questions were invited and answered, and the patient wishes to proceed as outlined below. Currently, I am recommendin. L5, possibly L4, to S2/P posterior (see backside) stabilized decompression and fusion 2. Follow up with PCP for surgical clearance 3. Review of surgical risks and benefits as well as an educational packet on the proposed surgical procedure. Risks: All surgical procedures come with inherent risks, including those related to positioning, anesthesia, intraoperative findings, and postoperative complications. It is important to understand that surgery does not come with any guarantee of a successful outcome as complications and adverse events are always possible. The patient was given a handout in office today discussing the surgical procedure and risks associated with the intervention, both of which were discussed with the patient. These risks include but are not limited to the following: * Experiencing same, different or even worse symptoms in back, neck, arms, or legs compared to before surgery. * Requiring further surgery or other forms of treatment presently or at some time in the future at same or other levels of the intended spine surgery. * On an extreme but fortunately relatively rare basis severe complication such as blindness, stroke, heart attack, temporary and/or permanent nerve injury, paralysis, coma, or may occur, sometimes without known explanation. * Surgical complications may include but are not limited to risk of infection, fluid accumulation in the surgical dissection site, including a seroma or hematoma, that requires additional surgery, wound drainage, bleeding, new numbness or weakness, vision changes/loss, spinal fluid leakage, non-healing and/or infected incision, headaches, difficulty or inability to swallow, hoarseness, hemopneumothorax, pneumothorax, impotence, retrograde ejaculation, vaginal dryness; injury to nerves, spinal cord, blood vessels, lymphatics or other vital organs (i.e., bowel injury, injury to the great vessels); heterotopic bone formation; complications related to the hardware such as screws, rods, cages including misplaced hardware, device failure, instrumentation at the wrong spine level, hardware fracture/breakage, or hardware loosening; vertebral failure of the spinal column above or below the newly placed hardware; retained surgical instrumentations or devices and the need for further surgery. * Medical risks of the planned spine surgery include but are not limited to generalized Infections to the whole body or local areas outside of the surgical site (sepsis), heart attack, bleeding, anaphylaxis, meningitis, seizure, epilepsy, hearing loss, burn valerio, laceration of the head or other areas of the body, bruising, hypersensitivity of the skin, bladder over distension; allergic reaction; shoulder injury related to positioning; fat, bl ood and air clots to other areas of the body like heart, lungs, brain; failure of internal organs such as lungs, kidneys, liver and excessive bleeding. If blood transfusions are necessary, note that transfusions may cause intolerance reactions such as anaphylaxis or other complex reactions. * Despite best efforts, the results of spine surgery might not heal in terms of bone, soft tissues such as skin, fascia, ligaments, and joints. Additionally, in order to achieve best possible results, spine surgery may be carried out beyond the initially planned levels and involve decompression, fusion incl uding insertion of hardware at levels other than the original intended area of surgical interest change some portions of the procedure in order to ensure the best possible outcomes. * With spine surgery and spinal fusion, there are different off label uses of instrumentation (devices, implants and hardware) as well as biological substances (bone morphogenic proteins, demineralized bone matrix) as well as using extra bone from allograft sources (i.e. cadaver bone) or autograft (iliac crest bone, ribs, or the spine itself). The patient has been given information about these practices and their inherent risks and benefits. * [facility] is an educational center that serves as a training facility for neurosurgical and orthopedic spine residents and fellows. Residents are physicians who are completing their surgical intensive training following medical school. They assist in the operating room with direct supervision of the attending surgeons. [place] are surgeons who have com pleted their training and eligible for board certification. They have opted for an elective year of more specialized training in their field. They assist in the operating room under the supervision of the attending surgeons. Physician assistants are medically trained surgical providers who function in the outpatient, inpatient, and operating room setting under the direct supervision of the attending surgeon. * [facility] has multiple operating rooms with single and overlapping rooms running daily. They currently function under the required guidelines as produced by the [facility] Finance Committee with regards to the overlapping rooms and will continue to comply with changes to this policy as they occur. The requirements include and are complied with as follows: (1) the critical portions of the overlapping rooms will not occur at the same time, (2) the attending physician will be physically present during the critical portions of the procedure and immediately available during the entire case, and (3) a back-up attending is designated should the primary attending not be immediately available. The patient has had a chance to review all the listed information, has been giv en print outs detailing this information, and has had all his/her questions answered to their satisfaction. It was my pleasure to have seen and examined Wiliam Tarango . In our visit today we have had a chance to go over my understanding of our patient's current condition, the natural course history without intervention and various interventional options. Questions were invited and answered, and the patient wishes to proceed as outlined above. I have seen and examined the patient for 25 minutes and we have spent more than 50% of the time in repeat and detailed counseling about the patient's condition, its natural course history with out and as much as can be predicted with surgery and re-review of various surgical treatment options. In conclusion, Wiliam Tarango and his requested we proceed with the above suggested surgery and are willing to accept risks and limitations of the suggested surgery as nature of the disease process and our best attempts at treatment for the condition. Thank you again for allowing us to be part of your patient's care. Please don't hesitate to contact me if you have any further questions. Signed and authenticated by: Hilar[facility] [address] [place] [address]
[~2020-04-08 06:13] MED LIST changes: +ACETAMINOPHEN TAB 500 MG TAB PO PRN; -ACETAMINOPHEN TAB 500 MG TAB PO STA; -BUPIVACAINE (PF) 0.25% 30 ML VIAL SQ ONE; -DEXAMETHASONE SOD PHOSPHATE 10 MG/ML 1 ML VIAL IV ONE; +GABAPENTIN 300 MG CAP PO PRN; -GABAPENTIN 300 MG CAP PO STA; -GLYCOPYRROLATE 0.2 MG/ML 2 ML VIAL ONE; -HEPARIN SODIUM,PORCINE 5,000 UNIT/ML 1 ML VIAL SQ ONE; -HYDROmorphone 0.5 MG/0.5 ML SYRINGE IVP PRN; -LACTATED RINGERS 1,000 ML IV ONE; -LACTATED RINGERS 1,000 ML IV SCH; -LIDOCAINE 1% INJ 10MG/ML (20 ML MDV) ONE; -MIDAZOLAM 2 MG/2 ML VIAL IV ONE; -NEOSTIGMINE 1 MG/ML 10 ML VIAL ONE; -ONDANSETRON 4 MG/2 ML VIAL IVP ONE; +ONDANSETRON 4 MG/2 ML VIAL IVP PRN; -PHENYLEPHRINE-0.9% NACL SYG 1 MG/10 ML SYRINGE ONE; -PROPOFOL 10 MG/ML 20 ML VIAL IV ONE; -ROCURONIUM BROMIDE 10 MG/ML 5 ML VIAL IV ONE; -ROPIVACAINE 5 MG/ML 30 ML VIAL ONE; -SCOPOLAMINE 1.5MG/72HR PATCH TRANSDERM ONE; -SUCCINYLCHOLINE CHLORIDE 100 MG/5 ML SYR IV ONE; -TAMSULOSIN 0.4 MG CAP.ER.24H PO STA; +TRANEXAMIC ACID 1,000 MG in SODIUM CHLORIDE 0.9% 100 ML IVPB PRN; -ePHEDrine SULFATE/0.9% NACL/PF 50 MG/5 ML SYRINGE IV ONE; -fentaNYL (PF) 50 MCG/ML 2 ML AMP IV ONE; -fentaNYL (PF) 50 MCG/ML 2 ML AMP ONE
[2020-04-08] MEDS: LACTATED RINGERS 1,000 ML IV SCH ×2 (07:12→17:25)
[2020-04-08] MEDS ORDERED: MIDAZOLAM 2 MG/2 ML VIAL IV ONE (07:15)
[2020-04-08] MEDS ORDERED: TRANEXAMIC ACID 1,000 MG/10 ML VIAL ONE (07:43)
[2020-04-08] MEDS ORDERED: HYDROmorphone (PF) 1 MG/ML ONE (07:43)
[2020-04-08] MEDS ORDERED: PHENYLEPHRINE-0.9% NACL SYG 1,000 MCG/10 ML SYRINGE ONE (07:43)
[2020-04-08] MEDS ORDERED: KETAMINE 10 MG/ML 20 ML VIAL ONE (07:43)
[2020-04-08] MEDS ORDERED: PROPOFOL 10 MG/ML 20 ML VIAL IV ONE (07:43)
[2020-04-08] MEDS ORDERED: fentaNYL (PF) 50 MCG/ML 2 ML AMP ONE (07:43)
[2020-04-08] MEDS ORDERED: LIDOCAINE 1% INJ 10MG/ML (20 ML MDV) ONE (07:43)
[2020-04-08] MEDS ORDERED: SODIUM CHLORIDE 0.9% 100 ML BAG ONE (07:43)
[2020-04-08] MEDS ORDERED: MIDAZOLAM 2 MG/2 ML VIAL ONE (07:43)
[2020-04-08] MEDS ORDERED: NEOSTIGMINE 1 MG/ML 10 ML VIAL ONE (07:43)
[2020-04-08] MEDS ORDERED: GLYCOPYRROLATE 0.2 MG/ML 2 ML VIAL ONE (07:43)
[2020-04-08] MEDS ORDERED: SUCCINYLCHOLINE CHLORIDE 100 MG/5 ML SYR IV ONE (07:43)
[2020-04-08] MEDS ORDERED: ROCURONIUM 10 MG/ML (5 ML VIAL) IV ONE (07:43)
[2020-04-08] MEDS ORDERED: SODIUM CHLORIDE 0.9% 100 ML with ceFAZolin 2,000 MG IV ONE ×4 (07:48→12:30)
[2020-04-08] MEDS ORDERED: GELATIN SPONGE,ABSORB (LARGE) 1 EACH SPONGE TOPICAL ONE (08:33)
[2020-04-08] MEDS ORDERED: BUPIVACAINE (PF) 0.25% 30 ML VIAL SQ ONE (08:34)
[2020-04-08] MEDS ORDERED: THROMBIN (BOVINE) 5,000 UNIT VIAL TOPICAL ONE (08:34)
[2020-04-08] MEDS ORDERED: VANCOMYCIN 1,000 MG VIAL MISCELLANE ONE ×2 (08:34→13:40)
[2020-04-08] MEDS ORDERED: LACTATED RINGERS 1,000 ML IV ONE ×2 (08:51→15:13)
[2020-04-08] MEDS ORDERED: HYDROmorphone 1 MG/ML 1 ML SYRINGE IVP PRN (13:09)
[2020-04-08] MEDS ORDERED: ONDANSETRON 4 MG/2 ML VIAL IVP ONE (13:09)
[2020-04-08] MEDS ORDERED: HYDROmorphone 0.5 MG/0.5 ML SYRINGE IVP PRN (13:09)
[2020-04-08] MEDS ORDERED: CYCLOBENZAPRINE 10 MG TAB PO PRN (13:12)
[2020-04-08] MEDS ORDERED: HYDROcodone/APAP 10-325MG 1 EACH TAB PO PRN ×2 (13:13)
--- NOTE | 2020-04-08 15:22 | FL ---
Fluoroscopy and limited lumbar spine HISTORY: Lumbar decompression 2 minutes 48 seconds fluoroscopy time supplied to the referring clinician. 9 intraoperative C-arm im ages document the procedure. See dictated report from orthopedic surgery.
[2020-04-08] MEDS: GABAPENTIN 300 MG CAP PO SCH ×4 (17:25→21:22)
[2020-04-08] MEDS: DEXAMETHASONE SOD PHOSPHATE 4 MG/ML 1 ML VIAL IV SCH (17:38)
[2020-04-08] MEDS ORDERED: LORazepam 0.5 MG TAB PO PRN (18:36)
[2020-04-08] MEDS ORDERED: SUMAtriptan succinate 50 MG TAB PO PRN (18:36)
[2020-04-08] MEDS ORDERED: LORazepam 2 MG/ML INJ IV PRN (18:37)
--- NOTE | 2020-04-08 20:45 | CONS ---
CONSULTATION DATE OF SERVICE: 04/08/2020 REASON FOR CONSULTATION: Advice regarding history of DJD and multiple medical problems and issues, requested by Dr. Holland. HISTORY OF PRESENT ILLNESS: This 49-year-old gentleman with a past medical history of DJD, history of anxiety, history of hernia repair, history of L5-S1 spondylosis, underwent surgery by Dr. Holland. The patient is being closely monitored at this time. The patient had some episodes of leg pain as well as shaking. There is no history of any fever, rigor or chills. No history of headache, loss of consciousness. The patient is currently slightly sedated after pain medications. The patient is followed by Dr. Wesley in the outpatient setting. PAST MEDICAL HISTORY: History of DJD, history of hernia repair, history of anxiety. HOME MEDICATIONS: Cogentin, Remeron, Risperdal 3 mg at bedtime and 2 mg p.r.n., Ativan, Imitrex. ALLERGIES: ASPIRIN. FAMILY HISTORY: No history of heart disease or strokes in the family. SOCIAL HISTORY: History of smoking. Occasional THC. REVIEW OF SYSTEM: Review of systems could not be taken; the patient is slightly drowsy at this time. PHYSICAL EXAMINATION: Pulse is 101, blood pressure 115/72, respirations are 16, temperature 98.3, pulse ox 99% on 3 L. HEENT: Conjunctivae normal. NECK: No jugular venous distention. CARDIOVASCULAR SYSTEM: S1, S2 muffled. RESPIRATORY SYSTEM: Breath sounds diminished at the bases. No rhonchi. No crackles. ABDOMEN: Soft, non-tender. No mass palpable. LEGS: No edema. No swelling. EXAMINATION OF THE BACK: Status post surgery. NERVOUS SYSTEM: Higher functions as mentioned earlier. Could not be examined completely. SKIN: No ulcer, rash, bleeding. JOINTS: No active deforming arthropathy. LABS: The preoperative labs showed normal CBC. The coags are normal. The chemistry shows BUN is 23. Preoperative UA was unremarkable. ASSESSMENT: 1. Status post lumbar fusion for L5-S1 spondylosis with grade 1 and 2 spondylolisthesis and unstable neurogenic claudication. 2. History of degenerative joint disease. 3. History of frequent migraines. 4. History of hernia repair. 5. History of anxiety. 6. History of nicotine dependence. 7. History of tetrahydrocannabinol. 8. FULL CODE. RECOMMENDATIONS AND DISCUSSION: In this 49-year-old gentleman who presented with multiple medical issues, at this time I recommend continuing the current medications, continue symptomatic treatment. Resume the home medications. I would also recommend using Ativan p.r.n. Otherwise, the patient may be asked to follow up with Dr. Reginald Wesley closely after discharge. DVT prophylaxis. Incentive spirometry. Thank you, Dr. Holland, for letting us participate in the care of this patient. MMMILTONL / IJN: [id number] /
[2020-04-08] MEDS: SENNOSIDES-DOCUSATE SODIUM 1 EACH TAB PO SCH (21:13)
[2020-04-08] MEDS: MIRTAZAPINE 15 MG TAB PO SCH (21:13)
[2020-04-08] MEDS: risperiDONE 1 MG TAB PO SCH (21:13)
[2020-04-09] MEDS: DEXAMETHASONE SOD PHOSPHATE 4 MG/ML 1 ML VIAL IV SCH ×5 (00:07→23:19)
[2020-04-09 06:41] LABS: Appearance,Urine Clear (Clear); Bilirubin,Urine Negative (Negative); Blood,Urine Negative (Negative); Color,Urine Light Yellow; Glucose,Urine (UA) Negative (Negative); Ketones,Urine Negative (Negative); Leukocyte Esterase,Urine Negative (Negative); Nitrite,Urine Negative (Negative); PH, Urine 5.5 (5.0-8.0); Protein,Urine Negative (Negative); Specific Gravity,Urine 1.013 (1.001-1.035); Urobilinogen,Urine <2.0 mg/dL (<2.0)
--- NOTE | 2020-04-09 08:20 | P.PN ---
Subjective Progress Note Date: 04/09/20 Principal diagnosis: L5-S1 spondylolysis with grade 2 listhesis and neurogenic claudication Patient seen and examined this morning. He is doing fairly well. States some intermittent numbness in his right leg that comes and goes but otherwise is doing well. He has been up to the bathroom. He denies any fevers chills shortness of breath or chest pain at this time. Drain is still in place with minimal output. His pain is controlled currently. He denies any perineal numbn ess or tingling. Objective - Vital Signs Vital signs: Vital Signs Temp 99.1 F 04/09/20 07:17 Pulse 105 H 04/09/20 07:17 Resp 18 04/09/20 07:17 BP 110/70 04/09/20 07:17 Pulse Ox 99 04/09/20 07:17 Intake & Output 04/08/20 04/09/20 04/09/20 18:59 06:59 18:59 Intake Total 2900 Output Total 830 115 Balance 2070 -115 Weight 70.6 kg Intake: IV 2150 Intake, IV Titration 750 Amount Lactated Ringers 1,000 ml 700 @ 20 mls/hr IV .Q24H [facility] Rx#:[id number] ceFAZolin 2 gm In Sodium 50 Chloride 0.9% 50 ml @ 100 mls/hr IVPB Q8HR [facility] Rx# :[id number] Output: Drainage 30 110 Right Lower Back 30 110 Urine 450 5 Estimated Blood Loss 350 - Exam PHYSICAL EXAMINATION: Vitals: Stable at this time General: Awake, alert, appropriate for age, in no acute distress. HEENT: No unusual neck masses around region of lateral neck triangle, thyroid, supraclavicular groove. Extremities: Skin warm and dry without no acute lesions, coloration, temperature, skin intact, no tenderness or erythema. Integument: Surgical incisions: Dressing is mildly saturated we will changed today. Otherwise no erythema or ecchymosis or edema Palpation: Minimal tenderness to palpation around the surgical area of the lumbar spine VASCULAR STATUS : Wrist Pulses: 2/4 bilateral radial and ulnar Pedal Pulses: 2/4 bilateral DP and PT Color: Normal Edema: None NEUROLOGIC EXAMINATION: Mental Status: Awake and alert, fully oriented, with normal attention, concentration and memory, and fluent, appropriate speech. Cranial Nerves: I: Olfactory not tested. II: Visual acuity normal, no visual field deficit noted with confrontation. III,IV: Normal pupillary reflexes & intact extraocular movements without nystagmus. V,: Intact symmetrical facial sensation. VII: Intact symmetrical facial motor movement VIII: Hearing intact. IX,X: Intact gag, swallow, & normal voice. XI: Sternocleidomastoid, trapezius function intact. XII: Tongue midline with normal movements. Motor Exam (0-5/5, N/T) STRENGTH UPPER EXTREMITY Shoulder Abd (Not part of ERNESTO Motor score): RIGHT 5 LEFT 5 Elbow Flexors: RIGHT 5 LEFT 5 Elbow Extensor: RIGHT 5 LEFT 5 Wrrist Dorsiflexors: RIGHT 5 LEFT 5 Finger Abductor: RIGHT 5 LEFT 5 Geophysical Drafter: RIGHT 5 LEFT 5 LOWER EXTREMITY Hip Flexor (Not part of ERNESTO Motor Score): RIGHT 5 LEFT 5 Knee Flexor: RIGHT 5 LEFT 5 Knee Extensor: RIGHT 5 LEFT 5 Ankle Dorsiflexion: RIGHT 5 LEFT 5 Ankle Plantarflexion: RIGHT 5 LEFT 5 EHL: RIGHT 5 LEFT 5 FHL: RIGHT 5 LEFT 5 ERNESTO Motor Score: RIGHT 50/50 LEFT 50/50 REFLEXES Biecp: RIGHT 2 LEFT 2 Tricep: RIGHT 2 LEFT 2 Brachioradialis: RIGHT 2 LEFT 2 Patellar: RIGHT 2 LEFT 2 Achilles: RIGHT 2 LEFT 2 Pathological Reflexes Nevarez's: RIGHT Absent LEFT Absent Babinski: RIGHT Absent LEFT Absent Clonus: RIGHT None LEFT None SENSORY Joint Position: Intact bilaterally Vibration Intact bilaterally Pain and LT sense Intact C5-T1 and L2-S1 Dermatomal deficit None Assessment and Plan Assessment: 49-year-old male postoperative day 1 L5-S1 decompression fusion Plan: -Appreciate medicine management. -Pain control: Adequate at this time -Aggressive ambulation protocol. OOB with all meals. OOB or in chair 4-5x daily. -PT/OT -TEDs, SCDs, mechanical ppx. OK for heparin today. Early ambulation is best. -GI ppx. -Computed tomography scan of the lumbar spine without contrast pending -Trend labs. -Dispo: Home 1-2 days with home health care
[2020-04-09] MEDS: polyethylene glycoL 3350 17 GM POWD.PACK PO SCH (08:42)
[2020-04-09] MEDS: risperiDONE 2 MG TAB PO SCH (08:43)
[2020-04-09] MEDS: SENNOSIDES-DOCUSATE SODIUM 1 EACH TAB PO SCH ×2 (08:43→20:22)
[2020-04-09] MEDS: GABAPENTIN 300 MG CAP PO SCH ×3 (08:43→20:22)
[2020-04-09] MEDS: BENZTROPINE MESYLATE 1 MG TAB PO SCH (08:44)
[2020-04-09] MEDS: LACTATED RINGERS 1,000 ML IV SCH (11:50)
--- NOTE | 2020-04-09 12:18 | P.OP ---
Date of Procedure: 04/08/20 Preoperative Diagnosis: 1. L5-S1 spondylolysis 2. L5-S1 Grade II spondylolisthesis, unstable 3. Neurogenic Claudication Postoperative Diagnosis: 1. L5-S1 spondylolysis 2. L5-S1 Grade II spondylolisthesis, unstable 3. Neurogenic Claudication Procedure(s) Performed: 1. L5-S1 Posteriolateral and interbody fusion 2. L5-S1 Intradiscal osteotomy for deformity correction (3 column osteotomy) 3. L5-S1 decompressive laminectomy, complete facetectomy, foraminotomy. Implants: [place] screws x4 Globus Sable cages 22 x 8-13, 15 deg Allograft Autograft Anesthesia: GETA Surgeon: Hilario Holland (ESTHER Plunkett was present for the entire case and was necessary due to the complexity of the case. ) Estimated Blood Loss (ml): 350 IV fluids (ml): 3,500 Urine output (ml): 1,000 Pathology: none sent Condition: stable Disposition: PACU Indications for Procedure: 49 yo male presented with c/o back pain severe buttock and posterior leg pain as well as weakness in b/l legs, progressive numbness and tingling as well as feeling of instability and inability to perform ADLs secondary to his pain and weakness. He was found to have a grade II spondylolistheis with spondylolysis of L5-S1 causing severe stenosis, deformity and pain due to b/l pars defects. He was evaluated and went though appropriate conservative measures but ultimately decided that surgery was what he wanted done. All the risks and benefits of the procedure were discussed with him and his and these are outlined in the risk review. He was seen preoperatively and was ready to undergo the procedure. Operative Findings: This case took 100% longer than expected due to the complexity of the case and the degree of deformity. L5-S1 b/l pars fractures undergoing secondary bone healing with non-healing elements causing severe bony overgrowth of L4-S1 facet joints, pars and lamina. Severe stenosis of L5-S1 with large disc herniation and Grade II deformity. Description of Procedure: The patient was seen and examined in the preoperative area. All preoperative protocols were followed. Informed consent was obtained risks and benefits of the procedure were discussed at length. Risks including bleeding infection damage to the surrounding tissue and risk of reoperation were discussed with the patient. Risk of anesthesia up to and including was a discussed with the patient. These are outlined in the risk review. They were willing to accept these risks and all of the risks of surgery. The patient was given a weight- based dose of antibiotics in the form of 2 g Ancef IVPB. The patient was seen and evaluated by the anesthesia team who deemed them fit for surgery. The site was marked, the patient was willing to proceed with the procedure. The patient was transferred to the operative suite by the Department of anesthesia. They were then drifted off to sleep by the department anesthesia GETA. The patient tolerated this well. Rosa catheter was placed for nursing staff atraumatically. Once confirmation of lines and ventilation the patient was transferred to a prone Micah Aashish table very carefully. All bony prominences including wrists, elbows, axilla, chest, hips, and thighs, and feet were padded very well. Special attention was paid to the genitalia and these were padded accordingly. SCDs were placed on bilateral lower extremities and were connected. Arms were well padded and placed on arm boards up around the 9090 position. Once in position, again we confirmed good ventilation capabilities and that lines were running appropriately. The patient's lumbar spine was then exposed. 1010s were placed outlining the incision site. Standard alcohol was used to clean the incision site and allowed to dry. C-arm was used to biomark the patient and confirm level for incision which was marked with a skin marker. Operative briefing was performed with all teams and everyone in agreement to proceed. The patient was then prepped and draped in a normal sterile fashion. Timeout was then performed and all parties were in agreement with the procedure to be performed. Curves and Marcaine was then used to infiltrate the area 30 cc. Once adequate anesthesia been performed. Skin knife was used to incise of the previous supine marked area. Subcu dissection was then performed with electrocautery and meticulous hemostasis performed. The lumbosacral fascia was then identified and cleaned with a Whelan. Fascial incision was made midline over the transverse process of L4 through S1. Dissection was then taken down subperiosteally over the lamina of L4-L5 and S1 and sacrum. We then exposed out to the transverse processes of L4 5 and the sacral Ala. Meticulous hemostasis was performed. Once dissection was complete transverse processes were decorticated with a high- speed bur. There is exuberant bony overgrowth of the L5-S1 facet joints as well as the L4 5 region. This almost completely obscured the L5 lamina from this area. Osteotome was used to remove this exuberant bone to reveal the L5 lamina as well as landmarks in this area. We finally identified the starting point for L5 screws bilaterally. Once this was accomplished we did prep the screws on the right hand side under AP lateral fluoroscopy using a high-speed bur followed by a pedicle finder and a pedicle feeler. Once this was accomplished and then proceeded with decompression of the L5-S1 region with a [place] T cut of the L5 lamina and pars. We then unroofed this area and made an inverted W cut of the SAP of S1. We did remove the IP of L5 completely. This revealed the disc space of L5-S1. There is a large disc herniation which was noted here as well as deformity. Intradiscal osteotomy was then performed on the right-hand side afte r successfully protecting the thecal sac as well as the exiting L5 nerve root which was completely decompressed on its path. We used a quarter-inch osteotome to perform intradiscal osteotomy followed by sequential saroj until a 12 shaver was obtained pituitaries used to remove disc material as well. A load large down-biting curet was used to clear disc material posterior medially. This also helped us remove the posterior inferior endplate of L5 this allowed for good mobility in this area and so we then placed screws into L5 and S1 on the right-hand side and performed a reduction of the spondylolisthesis. Intraoperative neuro monitoring revealed no neuro monitoring changes during this maneuver. After this was accomplished we returned our attention to the left- hand side where the L5 and S1 screw holes were prepped using a bur followed by a pedicle finder. Screws were then placed and a glenroy placed in this area as well. We will perform intradiscal osteotomy of the left-hand side and using a large down-biting curet removed the remainder of the posterior osteophyte disc complex of the inferior endplate of L5 body. Sequential shaving was then done on this side as well. Once we accomplished this we selected a cage bone graft was placed anterior to the cage and the endplates were roughened with a bear claws. Under AP lateral fluoroscopy placed a expandable cage on the left-hand side. This was then expanded to fit and was confirmed to be stable and in good position. We then turned our attention to the right-hand side where this was repeated in a cage was placed in this area. Cages were both backfilled with allograft and autograft via funnel. AP and lateral fluoroscopy demonstrated good reduction of the spondylolisthesis as well as good cage placement. Screws were tested prior to glenroy placement and were within limits intraoperative neuro monitoring of greater than 20. We then final tightened all screws with set screws into place. The wound was copiously irrigated with 3 L of normal sterile saline. Surgicel was placed over the dura. We then placed bone graft in the posterior lateral gutters after decortication. We then placed a drain deep to the fascia and the wound was then closed in a multilayer closure the fascia was closed with a #1 Vicryl followed by a #1 running strata fix followed by running strata fix followed by a running nylon suture in the skin. Using cleaned and dressed sterilely with sterile Cellerate Telfa 4 x 4's and Tegaderms. The drain was sewn into place and was protected as well as dressed sterilely. The patient was transferred back to his hospital bed atraumatically. Drain continued to hold suction and were in good position. Patient was then awakened and extubated by the department of anesthesia having tolerated the procedure very well with no complications. He was transferred to the postoperative care unit in stable condition.
--- NOTE | 2020-04-09 12:28 | CT ---
EXAMINATION TYPE: CT lumbar spine wo con DATE OF EXAM: 04/09/2020 COMPARISON: 03/10/2020 HISTORY: Lumbar spondylosis, s/p fusion CT DLP: 752.8 mGycm CONTRAST: CT scan of the lumbar is performed , patient injected with mL of . TECHNIQUE: CT of the lumbar spine is performed on a spiral scan at 3 mm thick sections. Reconstructed images are performed in the coronal and sagittal planes. FINDINGS: There is been interval laminectomy at L5. Disc spacers from priors L5-S1. Spondylolisthesis of L5 on S1 appears stable or slightly reduced. Deformity of L1 is stable. Minimal retrolisthesis of L5 1 mL tube may remain present. Vacuum disc phenomenon is present L1-2. T11-T12:: No focal disc herniation or significant disc bulge is evident. No spinal canal stenosis o r neural foraminal stenosis is present. Right facet hypertrophy has posterior lateral thecal sac comp ression T12-L1: There is broad-based disc bulge with anterior thecal sac flattening. Borderline stenosis is present at 1.0 cm. Neural foramen appear patent. L1-L2: Broad-based disc bulge is present with anterior thecal sac contact. No AP spinal canal stenosi s present. Neural foramen are patent. L2-L3: Broad-based disc bulge is present. This has mild anterior thecal sac contact. No spinal canal stenosis or neural foraminal stenosis is present L3-L4: Mild broad-based disc bulge is intrathecal sac contact. No spinal canal stenosis or neural for aminal stenosis. Some facet hypertrophy and ligamentum flavum laxity is present L4-L5: This disc level is limited in evaluation due to beam hardening artifact pedicles screws. No ob vious stenosis is evident. Facet hypertrophy may be present. L5-S1: Postsurgical changes are present. Disc spacers been placed. No obvious stenosis is present pos t laminectomy IMPRESSION: 1. Upper lumbar spine mild disc bulging with anterior thecal sac contact without stenosis. 2. Postsurgical changes L5-S1 disc space. 3. Stable deformity L1. 4. Postsurgical changes L5- S1
[2020-04-09] MEDS: HEPARIN SODIUM,PORCINE 5,000 UNIT/ML 1 ML VIAL SQ SCH ×2 (15:26→20:22)
[2020-04-09 17:31] LABS: Basophils # (A) 0.02 X 10*3/uL (0.00-0.10); Basophils % (A) 0.1 %; Eosinophils # (A) 0 X 10*3/uL (0.04-0.35); Eosinophils % (A) 0 %; HCT 39.1 % (39.6-50.0); HGB 12.9 g/dL (13.0-17.0); Lymphocytes # (A) 1.18 X 10*3/uL (0.90-5.00); MCH 31.9 pg (27.0-32.0); MCV 96.8 fL (80.0-97.0); Mean Platelet Volume 9.1 fL (9.5-12.2); Monocytes # (A) 0.93 X 10*3/uL (0.20-1.00); Monocytes % (A) 5.5 %; Neutrophils # (A) 14.57 X 10*3/uL (1.80-7.70); Platelet Count 283 X 10*3/uL (140-440); RBC 4.04 X 10*6/uL (4.40-5.60); RDW 12.3 % (11.5-14.5); WBC 16.77 X 10*3/uL (4.50-10.00)
--- NOTE | 2020-04-09 17:57 | PN ---
PROGRESS NOTE DATE OF SERVICE: 04/09/2020 This 49-year-old gentleman who was admitted after lumbar surgery is being closely monitored. No chest pain. No palpitations. No fever. PHYSICAL EXAMINATION: Alert and oriented x3. Pulse is 108, blood pressure 116/60, respiration 18, temperature 99.2, pulse ox 98% on 3 L. HEENT: Conjunctivae normal. NECK: No jugular venous distention. CARDIOVASCULAR SYSTEM: S1, S2 muffled. RESPIRATORY SYSTEM: Breath sounds diminished at the bases. No rhonchi. No crackles. ABDOMEN: Soft, non-tender. LEGS: No edema. No swelling. EXAMINATION OF BACK: Status post surgery. LABS: Noted. ASSESSMENT: 1. Status post lumbar fusion for L5-S1 spondylosis with grade 1 and 2 spondylosis and unstable neurogenic claudication. 2. History of degenerative joint disease. 3. History of frequent migraines. 4. Hernia repair. 5. History of anxiety. 6. History of nicotine dependence. 7. History of tetrahydrocannabinol. 8. FULL CODE. RECOMMENDATIONS AND DISCUSSION: I recommend to continue current medications, continue with symptomatic treatment, incentive spirometry, DVT prophylaxis. Closely follow with Orthopedic Surgery. Further recommendations to follow. MMODL / IJN: [id number] /
[2020-04-09] MEDS: risperiDONE 1 MG TAB PO SCH (20:22)
[2020-04-09] MEDS: MIRTAZAPINE 15 MG TAB PO SCH (20:22)
[2020-04-10 00:12] LABS: African American GFR (CKD) 80.7 (60.0-200.0); Anion Gap 12.4 mmol/L (4.00-12.00); Calcium 9.3 mg/dL (8.7-10.3); Carbon Dioxide 23.6 mmol/L (21.6-31.8); Non-African American GFR(CKD) 69.6 (60.0-200.0); Potassium 4.3 mmol/L (3.5-5.5)
[2020-04-10] MEDS: DEXAMETHASONE SOD PHOSPHATE 4 MG/ML 1 ML VIAL IV SCH ×2 (05:35→12:51)
[2020-04-10 08:08] VITALS: BP 111/67; PULSE 100; RESP 16; TEMP 98
[2020-04-10] MEDS: BENZTROPINE MESYLATE 1 MG TAB PO SCH (08:14)
[2020-04-10] MEDS: SENNOSIDES-DOCUSATE SODIUM 1 EACH TAB PO SCH (08:14)
[2020-04-10] MEDS: HEPARIN SODIUM,PORCINE 5,000 UNIT/ML 1 ML VIAL SQ SCH (08:14)
[2020-04-10] MEDS: GABAPENTIN 300 MG CAP PO SCH (08:14)
[2020-04-10] MEDS: risperiDONE 2 MG TAB PO SCH (08:14)
[2020-04-10] MEDS: polyethylene glycoL 3350 17 GM POWD.PACK PO SCH (08:15)
--- NOTE | 2020-04-10 09:01 | P.PN ---
Subjective Progress Note Date: 04/10/20 Principal diagnosis: L5-S1 spondylolysis with grade 2 listhesis and neurogenic claudication Patient seen and examined this morning. He is doing well. His been up and about no issues. Voiding appropriately no fevers chills shortness breath or chest pain. Pain is controlled at this time. Drain is still in place but will be pulled today and had minimal output overnight. He states he is ready to go home and would like to go home. Objective - Vital Signs Vital signs: Vital Signs Temp 98 F 04/10/20 08:00 Pulse 100 04/10/20 08:00 Resp 16 04/10/20 08:00 BP 111/67 04/10/20 08:00 Pulse Ox 99 04/10/20 08:00 Intake & Output 04/09/20 04/10/20 04/10/20 18:59 06:59 18:59 Intake Total 296 Output Total 73 10 Balance -73 -10 296 Intake: Oral 296 Output: Drainage 70 10 Right Lower Back 70 10 Urine 3 Other: Voiding Method Toilet # Voids 3 - Exam Exam stable today PHYSICAL EXAMINATION: Vitals: Stable at this time General: Awake, alert, appropriate for age, in no acute distress. HEENT: No unusual neck masses around region of lateral neck triangle, thyroid, supraclavicular groove. Extremities: Skin warm and dry without no acute lesions, coloration, temperature, skin intact, no tenderness or erythema. Integument: Surgical incisions: Dressing is mildly saturated we will changed today. Oth erwise no erythema or ecchymosis or edema Palpation: Minimal tenderness to palpation around the surgical area of the lumbar spine VASCULAR STATUS : Wrist Pulses: 2/4 bilateral radial and ulnar Pedal Pulses: 2/4 bilateral DP and PT Color: Normal Edema: None NEUROLOGIC EXAMINATION: Mental Status: Awake and alert, fully oriented, with normal attention, concentration and memory, and fluent, appropriate speech. Cranial Nerves: I: Olfactory not tested. II: Visual acuity normal, no visual field deficit noted with confrontation. III,IV: Normal pupillary reflexes & intact extraocular movements without nystagmus. V,: Intact symmetrical facial sensation. VII: Intact symmetrical facial motor movement VIII: Hearing intact. IX,X: Intact gag, swallow, & normal voice. XI: Sternocleidomastoid, trapezius function intact. XII: Tongue midline with normal movements. Motor Exam (0-5/5, N/T) STRENGTH UPPER EXTREMITY Shoulder Abd (Not part of ERNESTO Motor score): RIGHT 5 LEFT 5 Elbow Flexors: RIGHT 5 LEFT 5 Elbow Extensor: RIGHT 5 LEFT 5 Wrrist Dorsiflexors: RIGHT 5 LEFT 5 Finger Abductor: RIGHT 5 LEFT 5 Options Advisor: RIGHT 5 LEFT 5 LOWER EXTREMITY Hip Flexor (Not part of ERNESTO Motor Score): RIGHT 5 LEFT 5 Knee Flexor: RIGHT 5 LEFT 5 Knee Extensor: RIGHT 5 LEFT 5 Ankle Dorsiflexion: RIGHT 5 LEFT 5 Ankle Plantarflexion: RIGHT 5 LEFT 5 EHL: RIGHT 5 LEFT 5 FHL: RIGHT 5 LEFT 5 ERNESTO Motor Score: RIGHT 50/50 LEFT 50/50 REFLEXES Biecp: RIGHT 2 LEFT 2 Tricep: RIGHT 2 LEFT 2 Brachioradialis: RIGHT 2 LEFT 2 Patellar: RIGHT 2 LEFT 2 Achilles: RIGHT 2 LEFT 2 Pathological Reflexes Nevarez's: RIGHT Absent LEFT Absent Babinski: RIGHT Absent LEFT Absent Clonus: RIGHT None LEFT None SENSORY Joint Position: Intact bilaterally Vibration Intact bilaterally Pain and LT sense Intact C5-T1 and L2-S1 Dermatomal deficit None - Labs CBC & Chem 7: 04/09/20 06:10 04/09/20 06:10 Labs: Abnormal Lab Results - Last 24 Hours (Table) 04/09/20 04/09/20 Range/Units 06:10 06:10 WBC 16.77 H (4.50-10.00) X 10*3/uL RBC 4.04 L (4.40-5.60) X 10*6/uL Hgb 12.9 L (13.0-17.0) g/dL Hct 39.1 L (39.6-50.0) % MPV 9.1 L (9.5-12.2) fL Immature Gran # 0.07 H (0.00-0.04) X 10*3/uL Neutrophils # 14.57 H (1.80-7.70) X 10*3/uL Eosinophils # 0 L (0.04-0.35) X 10*3/uL Anion Gap 12.40 H (4.00-12.00) mmol/L Glucose 120 H (70-110) mg/dL Assessment and Plan Assessment: 49-year-old male postoperative day 2 L5-S1 decompression fusion Plan: -Appreciate medicine management. -Pain control: Adequate at this time -Aggressive ambulation protocol. OOB with all meals. OOB or in chair 4-5x daily. -PT/OT -TEDs, SCDs, mechanical ppx. OK for heparin today. Early ambulation is best. -GI ppx. -Computed tomography scan of the lumbar spine shows postoperative changes with good reduction of spondylolisthesis. Screws are safe. -Trend labs. -Dispo: Home with home healthcare today
--- NOTE | 2020-04-10 09:10 | P.DS ---
Providers Date of admission: 04/08/20 06:13 Expected date of discharge: 04/10/20 Attending physician: Hilario Holland DO Consults: 04/08/20 13:09 Consult Physician Routine Consulting Provider: Salma Raines Reason/Comments: medical management Do you want consulting provider notified?: Yes Primary care physician: [facility] Course: Spine Surgery Discharge Summary Note Admission Date: 04/08/2020 Discharge Date: 04/10/2020 Providers: Haley Holland Principal Diagnosis: L5-S1 spondylolysis with listhesis and neurogenic claudication Procedures: L5 S1 decompression fusion Discharge Medications: See list Allergies: Aspirin Hospital Course: The patient was evaluated preoperatively and found to have the diagnosis of L5- S1 spondylolysis with anterior listhesis grade 2 and neurogenic claudication. They underwent appropriate preoperative care and were willing to undergo the intended procedure. They underwent a successful L5-S1 decompression fusion and reduction, were recovered appropriately and sent to the floor. While on the floor they worked with physical therapy, occupational therapy and nursing to enhance their recovery experience. Their pain was well controlled through their stay and they were started on appropriate medications, DVT ppx modalities, activity and dietary needs. Daily labs were monitored closely, and transfusions were only used when necessary. Medicine as well as other consulting services have made their input and have helped with our team approach and multidisciplinary care. PT milestones have been met and passed and they have made the recommendation of home with home health care for this patient and treating providers agree with this care path. The patient will be discharged home with appropriate medications, instructions and follow-up information and in stable condition. Patient Condition at Discharge: Stable Plan - Discharge Summary Discharge Rx Participant: Yes New Discharge Prescriptions: New cefaDROXiL [Duricef] 1 gm PO Q12HR #6 tab Cyclobenzaprine [Flexeril] 10 mg PO HS PRN #40 tab PRN Reason: Spasms Gabapentin 300 mg PO TID 30 Days #90 cap HYDROcodone/APAP 10-325MG [[place] 10-325] 1 - 2 tab PO Q4HR PRN #56 tab PRN Reason: Pain Sennosides/Docusate Sodium [Senna Plus 8.6-50 mg Softgel] 1 each PO BID #20 capsule No Action SUMAtriptan succinate [Imitrex] 50 mg PO BID PRN PRN Reason: Migraine Headache LORazepam [Ativan] 0.5 mg PO BID PRN PRN Reason: Anxiety risperiDONE 3 mg PO HS risperiDONE 2 mg PO QAM Mirtazapine [Remeron] 15 mg PO HS Benztropine Mesylate [Cogentin] 1 mg PO DAILY Discharge Medication List SUMAtriptan succinate [Imitrex] 50 mg PO BID PRN 12/12/17 [History] LORazepam [Ativan] 0.5 mg PO BID PRN 04/01/20 [History] Mirtazapine [Remeron] 15 mg PO HS 04/01/20 [History] risperiDONE 2 mg PO QAM 04/01/20 [History] risperiDONE 3 mg PO HS 04/01/20 [History] Benztropine Mesylate [Cogentin] 1 mg PO DAILY 04/08/20 [History] Cyclobenzaprine [Flexeril] 10 mg PO HS PRN #40 tab 04/10/20 [Rx] Gabapentin 300 mg PO TID 30 Days #90 cap 04/10/20 [Rx] HYDROcodone/APAP 10-325MG [[place] 10-325] 1 - 2 tab PO Q4HR PRN #56 tab 04/10/20 [Rx] Sennosides/Docusate Sodium [Senna Plus 8.6-50 mg Softgel] 1 each PO BID #20 capsule 04/10/20 [Rx] cefaDROXiL [Duricef] 1 gm PO Q12HR #6 tab 04/10/20 [Rx] Follow up Appointment(s)/Referral(s): Reginald Wesley DO [Primary Care Provider] - 1 Week Hilario Holland DO [Doctor of Osteopathic Medicine] - 2 Weeks Activity/Diet/Wound Care/Special Instructions: Spine Discharge and Recovery Instructions Date of Surgery: 04/08/2020 Diagnosis: Grade 2 spondylolisthesis with spondylolysis L5-S1 Procedure: L5-S1 decompression fusion Medications: See list All medication refills should be obtained through your primary care doctor or your clinic spine surgeon. Please discuss prescription refills at your follow up appointment. Do not call the hospital for medication refills. Dressing: Leave your dressing in place for a total of 3 days post operatively. Then you may remove your dressing and leave open to air. Keep the area clean and if not able to keep area clean, then cover with sterile gauze and tape. Showering: You may shower 3 days after your procedure allowing soap and water to run over incision. Do not scrub. Do not soak. Blot dry. Follow up: Please confirm a follow up appointment with your surgeon 2 weeks post operatively. Please make an appointment to follow up with your PCP in 1-2 weeks after surgery for evaluation 3 phase, 3-week plan POST OP WEEKS 1-3 1. Lifting/carrying/pushing/pulling limited to less than 5 pounds. 2. Do not sit for longer than 15 minutes at one time. Get up and walk around. Prolonged sitting is NOT advised. If you lay down, see if you can tolerate laying down on you front (belly side) 3. Walk for periods of 15 minutes = 1 mile but no longer; do it multiple times times each day. 4.Ice your low back after activity. POST OP WEEKS 3-6 1. Lifting limited to less than 20 pounds. 2. Do not sit for longer than 30 minutes at a time. Frequently change positions. Use a sit-to stand workstation or take frequent breaks from sitting if you have returned to work. 3. Walk for 30 minutes each day. If possible, do these three or more times a day POST OP WEEKS 6+ At your 6-week appointment we will give you a physical therapy referral to focus on a core stabilization and strengthening program. You should also work on leg & buttock strengthening, hamstring & quadriceps stretching, and continue a low impact aerobic activity program such as swimming, walking, or riding a stationary bicycle. During the initial 6 weeks after your surgery, you are at the highest risk of re-injuring your spine. You should generally avoid BLTs (bending, lifting and twisting combination motions) and follow the above guidelines to reduce the chance of reinjury. You can anticipate post op appointments in our office at approximately 3 weeks and 6 weeks after your surgery. INCISION CARE: If your incision is not draining you do NOT need to cover it with a dressing. Keep your incision clean, dry and intact. In most cases, we apply skin glue, gilmar or sutures to the incision at the time of surgery. This will be like a crust or have the appearance of a scab and will fall off in time on its own. The stitches or gilmar need to be removed at 3 weeks post op appointment. You may begin to shower 3 days after surgery (this allows the glue to modi well). However, please avoid scrubbing the incision site or peeling off any of the skin glue. This will ensure optimal healing of your incision. Also, during this time avoid soaking the incision area in water - this includes swimming pools, hot tubs or baths. No ointments, lotions or oils on the incision until your surgeon allows. Leave gilmar, sutures or glue in place. Neurological dysfunction that comes on suddenly can also be a sign of a stroke. Below some common symptoms of a stroke are listed: B - balance difficulty such as sudden onset walking or leaning to one side - NEW E - eye problem such as sudden double vision or trouble seeing on one side - NEW F - Facial weakness or numbness on one side - NEW A - Arm or leg weakness or numbness on one side - NEW S - Slurred speech or difficulty with word finding - NEW T - Time is BRAIN! Call 911 as soon as you recognize these symptoms Diet: Consume a regular diet rich in vegetables and lean protein such as chicken or fish. You should consume in a ratio of approximately 20% fats|40% carbohydrates|40%protein. Vegetables, sweet potatoes, brown rice or quinoa are examples of good carbohydrates. Chips, white bread, cookies and sweets/sugar are examples of bad carbohydrates. Limit your bad carbs, go wild with good carbs. "Life's Simple 7" Guidelines as per [place] [employer] These will help you reclaim your life after surgery and nursery helper in your recovery, keeping in mind your restrictions. (1) Get Active. Physical activity can help people lose weight, control high blood pressure and cholesterol, feel emotionally better, and sleep better. (2) Control Cholesterol. Avoid a diet high in saturated fat, trans fat, & cholesterol. Limit whole milk & cream, ice cream, butter, egg yolks, processed meats (like sausage and hot dogs), and fatty meats. Choose healthy foods that are low in saturated fat, trans fat and cholesterol which include: Fruits and vegetables, fiber rich grain products (like whole grain pasta and brown rice), lean meat such as chicken, fish, nuts, seeds, and legumes. (3) Eat Better. Eat small portions. Shop at the grocery with a list and do not stray from it. Tips for a healthy diet include: Limit sodium intake to less than 1500mg daily, avoid prepackaged, processed, and fast foods, choose a diet rich in fruits, vegetables, and whole grain, high fiber foods, and limit saturated & cholesterol in your diet. (4) Manage Blood Pressure. If you have high blood pressure, you should have a cuff at home so that you can check your blood pressure regularly. Be sure you have a good cuff. An arm one is generally better than a wrist one. Bring the cuff to a doctor's appointment to validate that the measurements that your cuff are taking are accurate. Take your blood pressure twice daily when you are sitting down and relaxing. Record the numbers in a log and bring this log with you to your doctors' appointments. (5) Lose Weight if your BMI is above 25. A healthy BMI is between 19-25. To calculate Your BMI, you may use a Standard BMI Calculator on the NIH BMI website: <www.nhlbi.nih.gov/guidelines/obesity/BMI/bmicalc.htm>. Weigh oneself daily. If you are overweight, set a goal to lose weight. A pound a week loss if needed is a good target. (6) Reduce Blood Sugar. Limit foods and liquids with "added sugars." (Added sugars include sucrose, fructose, glucose, maltose, dextrose, high fructose corn syrup, corn syrup, concentrated fruit juice and honey). (7) Stop Smoking. If you smoke, quitting smoking is one of the best things that you can do for your health. Smoking increases your risk of heart attack, stroke, and peripheral vascular disease, which is a build-up of plaque in your arteries. Please discard all the cigarettes and lighters in your house. Have a plan for what you will do when you have the urge to smoke. Direct and second- hand smoke shortens your life as well as the lives of your family, friends and others around you. For your health and the health of those around you, please consider quitting! Proper Bending Body Mechanics: Maintain a wide stance with one foot slightly in front of the other. Keep your back straight. Bend utilizing the strength in your hips and knees. Do not bend at the waist. Maintain the lifted object at your waist-level close to your body. Avoid lifting weight that causes immediately pain or pain anywhere in the body afterwards. Smoking/Nicotine If there was ever one thing that you could do to increase your overall health, decrease your risk of cardiovascular problems by about 39% the second you make the choice, it is to STOP SMOKING. Your body's most instant gratification is the second you stop smoking. We have all heard the studies, read the articles but it is true, smoking is extremely bad for your overall health, and moreover it is detrimental to your bone health. Nicotine, IN ANY FORM, kills bone cells, prevents your body from healing fractures, and significantly prolongs healing after surgery. In spine surgery specifically, it increases your risk of not healing your bones to create a fusion and increases your risk of having a revision surgery due to this up to 60%. I know it is hard. I know it feels impossible. But there are ways. Take control of your life. We are here to help you through it. And when you are ready, ask us and we can direct you to help if you desire. Use the START Plan to Quit Smoking (please visit the [employer] website listed below for more information): S = Set a quit date. Choose a date within the next 2 weeks, so you have enough time to prepare without losing your motivation to quit. If you mainly smoke at work, quit on the weekend, so you have a few days to adjust to the change. T = Tell family, friends, and co-workers that you plan to quit. Let your friends and family in on your plan to quit smoking and tell them you need their support and encouragement to stop. Look for a quit stanton who wants to stop smoking as well. You can help each other get through the rough times. A = Anticipate and plan for the challenges you'll face while quitting. Most people who begin smoking again do so within the first 3 months. You can help yourself make it through by preparing ahead for common challenges, such as nicotine withdrawal and cigarette cravings. R = Remove cigarettes and other tobacco products from your home, car, and work. Throw away all your cigarettes (no emergency pack!), lighters, ashtrays, and matches. Wash your clothes and freshen up anything that smells like smoke. Shampoo your car, clean your drapes and carpet, and steam your furniture. T = Talk to your doctor about getting help to quit. Your doctor can prescribe medication to help with withdrawal and suggest other alternatives. If you can't see a doctor, you can get many products over the counter at your local pharmacy or grocery store, including the nicotine patch, nicotine lozenges, and nicotine gum. Resources for Quitting Smoking: <https://www.[place].gov/documents/[facility]/Quit_Tobacco_Resources_for_patients_313 480_7.pdf> Supplementation: Take recommended dosages of Vitamin D and Calcium to help fortify your bones and help them to heal. See your health maintenance packet for dosages and recommended levels. DVT/VTE prophylaxis: You will be given compression stockings from the hospital. Wear these daily for the first two weeks after surgery. You may take them off at night. You may be prescribed a medication to help thin your blood. Take this as directed. If you are not prescribed this medication, early and frequent ambulation has been shown to be the best prophylaxis to deep vein thrombosis and sequelae related to this event. Discharge Disposition: HOME WITH HOME HEALTH SERVICES
--- NOTE | 2020-04-10 16:27 | PN ---
PROGRESS NOTE DATE OF SERVICE: 04/10/2020 This 49-year-old gentleman who was admitted with lumbar fusion, improving significantly. No chest pain. No palpitations. No fever. PHYSICAL EXAMINATION: Alert and oriented x3. Pulse 95, blood pressure 111/67, respirations 16, temperature 98 degrees, pulse ox 99% on 3 L. HEENT: Conjunctivae normal. NECK: No jugular venous distention. CARDIOVASCULAR: S1, S2 muffled. RESPIRATORY: Breath sounds diminished in the bases. No rhonchi, no crackles. ABDOMEN: Soft, nontender. LEGS: No edema, no swelling. NERVOUS SYSTEM: No focal deficits. EXAMINATION OF BACK: Status post surgery. LABS: WBC 16.7, hemoglobin 12.9. ASSESSMENT: 1. Status post lumbar fusion for L5-S1 spondylosis with grade 1-2 spondylosis and stable neurogenic claudication. 2. History of degenerative joint disease. 3. History of frequent migraines. 4. Increased WBC, possibly reactive. 5. Hernia repair. 6. History of anxiety. 7. History of nicotine dependence. 8. History of THC. 9. FULL CODE. RECOMMENDATIONS AND DISCUSSION: Recommend to continue current medications, continue symptomatic treatment. Resume the home medications. Closely follow with Dr. Wesley in the outpatient setting. The rest of plan per Surgery. Incentive spirometry and DVT prophylaxis. Further recommendations to follow. MMODL / IJN: [id number] /
== END 2020-04-10 14:05 | disposition home or self-care (01) | DRG 455 ==
LOC: 2ORMAIN 06:13 → 4SSUR 14:20
PROVIDERS: ADMIT Family Medicine; ATTEND Orthopaedic Surgery
PROC: 0SG3071 Fusion of Lumbosacral Joint with Autologous Tissue Substitute, Posterior Approach, Posterior Column, Open Approach (ICD-10-PCS; 2020-04-08)
PROC: 0SB40ZZ Excision of Lumbosacral Disc, Open Approach (ICD-10-PCS; 2020-04-08)
PROC: 01NB0ZZ Release Lumbar Nerve, Open Approach (ICD-10-PCS; 2020-04-08)
PROC: 0SG30AJ Fusion of Lumbosacral Joint with Interbody Fusion Device, Posterior Approach, Anterior Column, Open Approach (ICD-10-PCS; principal; 2020-04-08 07:30)
DX: M43.07 Spondylolysis, lumbosacral region (principal); M48.07 Spinal stenosis, lumbosacral region; M48.062 Spinal stenosis, lumbar region with neurogenic claudication; M51.17 Intervertebral disc disorders with radiculopathy, lumbosacral region; G43.909 Migraine, unspecified, not intractable, without status migrainosus; F41.9 Anxiety disorder, unspecified; Z98.890 Other specified postprocedural states; Z98.52 Vasectomy status; Z87.891 Personal history of nicotine dependence; Z79.899 Other long term (current) drug therapy; Z88.6 Allergy status to analgesic agent
CPT/HCPCS: 36415; 72100; 72131; 80048; 81003; 85025; 86850; 86900; 86901

== ENCOUNTER 2020-06-19 07:43 | Day surgery (SDC) | payer OTHER ==
[2020-06-17 09:11] VITALS: BMI 25.7
--- NOTE | 2020-06-19 07:47 | P.GSHP ---
History of Present Illness H&P Date: 06/19/20 CHIEF COMPLAINT: GERD HISTORY OF PRESENT ILLNESS: The patient is a 50-year-old male who presents reports gastroesophageal reflux disease. Upper endoscopy was offered for further evaluation and management. PAST MEDICAL HISTORY: Please see list. PAST SURGICAL HISTORY: Please see list. MEDICATIONS: Please see list. ALLERGIES: Please see list. SOCIAL HISTORY: No illicit drug use FAMILY HISTORY: No reports of Crohn disease or ulcerative colitis. REVIEW OF ORGAN SYSTEMS: CONSTITUTIONAL: No reports of fevers or chills. GI: Denies any blood in stools or constipation. PHYSICAL EXAM: VITAL SIGNS: Stable GENERAL: Well-developed and pleasant in no acute distress. HEENT: No scleral icterus. Extraocular movements grossly intact. Moist buccal mucosa. NECK: Supple without lymphadenopathy. CHEST: Unlabored respirations. Equal bilateral excursions. CARDIOVASCULAR: Regular rate and rhythm. Distal 2+ pulses. ABDOMEN: Soft, nondistended. MUSCULOSKELETAL: No clubbing, cyanosis, or edema. ASSESSMENT: 1. Gastroesophageal reflux disease PLAN: 1. Recommend proceeding with an upper endoscopy Past Medical History Past Medical History: GERD/Reflux, Osteoarthritis (OA) Additional Past Medical History / Comment(s): migraines, diff swallowing, History of Any Multi-Drug Resistant Organisms: None Reported Past Surgical History: Back Surgery, Hernia Repair, Orthopedic Surgery Additional Past Surgical History / Comment(s): rt shoulder rotator cuff surgery ,vasectomy, ana carpal tunnel, robotic laparoscopic repair left inguinal hernia, spinal fusion Past Anesthesia/Blood Transfusion Reactions: No Reported Reaction Smoking Status: Former smoker - Past Family History Mother Family Medical History: No Reported History Medications and Allergies Home Medications Medication Instructions Recorded Confirmed Type SUMAtriptan succinate [Imitrex] 50 mg PO BID PRN 12/12/17 06/17/20 History LORazepam [Ativan] 0.5 mg PO BID PRN 04/01/20 06/17/20 History risperiDONE 2 mg PO QAM 04/01/20 06/17/20 History risperiDONE 3 mg PO HS 04/01/20 06/17/20 History Benztropine Mesylate [Cogentin] 1 mg PO BID 04/08/20 06/17/20 History Mirtazapine [Remeron] 30 mg PO HS 06/17/20 06/17/20 History Sertraline HCl [Zoloft] 50 mg PO QAM 06/17/20 06/17/20 History hydrOXYzine pamoate [Vistaril] 25 mg PO HS PRN 06/17/20 06/17/20 History traZODone HCL 50 mg PO HS PRN 06/17/20 06/17/20 History Allergies Allergy/AdvReac Type Severity Reaction Status Date / Time aspirin AdvReac Nausea Verified 06/17/20 09:03
[2020-06-19 08:02] VITALS: TEMP 98
[2020-06-19] MEDS ORDERED: LACTATED RINGERS 1,000 ML IV ONE (08:06)
[2020-06-19] MEDS ORDERED: LIDOCAINE 1% (10MG/ML) FOR IV START INTRADERMA ONE (08:07)
[2020-06-19] MEDS ORDERED: LIDOCAINE 1% INJ 10MG/ML (20 ML MDV) ONE (09:05)
[2020-06-19] MEDS ORDERED: PROPOFOL 10 MG/ML 20 ML VIAL IV ONE (09:05)
--- NOTE | 2020-06-19 09:35 | P.PCN ---
Date of Procedure: 06/19/20 Description of Procedure: PREOPERATIVE DIAGNOSIS: Gastroesophageal reflux disease Dysphagia POSTOPERATIVE DIAGNOSIS: Upper esophageal stenosis Gastroesophageal reflux disease Dysphagia Gastritis OPERATION: Esophagogastroduodenoscopy with rigid dilator over the guidewire 54 Fr with dilation Esophagogastroduodenoscopy with cold forceps biopsies stomach/antrum SURGEON: Iram Johnson MD ANESTHESIA: MAC. INDICATIONS: The patient is a 50-year-old male who presents with a history of gastroesopha geal reflux disease and dysphagia. Benefits and risks of the procedure were described. Informed consent was obtained. DESCRIPTION: The patient was brought into the endoscopy suite and laid in the left lateral decubitus position. After a timeout was confirmed, the procedure was initiated. An Olympus gastroscope was passed into the posterior oropharynx where an upper esophageal stenosis was identified. The scope was passed down to the distal esophagus. To address the upper esophageal stenosis, rigid dilator over guidewire was selected. Next using an Greek rigid dilator, a guidewire was placed through the gastroscope. Next the scope was withdrawn. A 54-Salvadorean rigid Greek dilator was passed carefully along the posterior oropharynx to 45 cm and left in place for 2-3 minutes stretch. The dilator was withdrawn including the guidewire. The scope was reentered along the posterior oropharynx with no findings of full- thickness tear of the upper esophageal sphincter. Additional findings below. Within the stomach, gastritis was identified along the body of the stomach with cold forceps biopsies obtained. The large esophageal valve was evaluated with Hill grade 2 lower esophageal valve. LA grade B erosive esophagitis was identified. No full-thickness injury was encountered. The GI tract was desufflated. The patient tolerated the procedure well. FINDINGS: Upper esophageal stenosis dilated 54-Salvadorean rigid dilator Diaphragmatic hiatus at 40 cm from the incisors Squamocolumnar junction 40cm from the incisors. Gastritis with cold forceps biopsies obtained LA grade B erosive esophagitis Hill grade 2 lower esophageal valve. RECOMMENDATIONS: Upper endoscopy as needed Plan - Discharge Summary Discharge Rx Participant: No New Discharge Prescriptions: Continue SUMAtriptan succinate [Imitrex] 50 mg PO BID PRN PRN Reason: Migraine Headache LORazepam [Ativan] 0.5 mg PO BID PRN PRN Reason: Anxiety risperiDONE 3 mg PO HS risperiDONE 2 mg PO QAM Benztropine Mesylate [Cogentin] 1 mg PO BID traZODone HCL 50 mg PO HS PRN PRN Reason: Insomnia hydrOXYzine pamoate [Vistaril] 25 mg PO HS PRN PRN Reason: Anxiety Sertraline HCl [Zoloft] 50 mg PO QAM Mirtazapine [Remeron] 30 mg PO HS Discharge Medication List SUMAtriptan succinate [Imitrex] 50 mg PO BID PRN 12/12/17 [History] LORazepam [Ativan] 0.5 mg PO BID PRN 04/01/20 [History] risperiDONE 2 mg PO QAM 04/01/20 [History] risperiDONE 3 mg PO HS 04/01/20 [History] Benztropine Mesylate [Cogentin] 1 mg PO BID 04/08/20 [History] Mirtazapine [Remeron] 30 mg PO HS 06/17/20 [History] Sertraline HCl [Zoloft] 50 mg PO QAM 06/17/20 [History] hydrOXYzine pamoate [Vistaril] 25 mg PO HS PRN 06/17/20 [History] traZODone HCL 50 mg PO HS PRN 06/17/20 [History] Follow up Appointment(s)/Referral(s): Iram Johnson MD [STAFF PHYSICIAN] - 07/03/20 Patient Instructions/Handouts: Esophageal Dilation (DC) Activity/Diet/Wound Care/Special Instructions: Diet as tolerated Discharge Disposition: HOME SELF-CARE
[2020-06-19 09:50] VITALS: RESP 16
[2020-06-19 10:02] VITALS: BP 112/74; PULSE 80
== END 2020-06-19 10:10 | disposition home or self-care (01) ==
LOC: ORWHC2ENDO 07:43
PROVIDERS: ATTEND Surgery Plastic and Reconstructive Surgery
DX: K22.2 Esophageal obstruction (principal); K29.50 Unspecified chronic gastritis without bleeding; K22.10 Ulcer of esophagus without bleeding; K21.9 Gastro-esophageal reflux disease without esophagitis; M19.90 Unspecified osteoarthritis, unspecified site; G25.81 Restless legs syndrome; F41.9 Anxiety disorder, unspecified; G43.909 Migraine, unspecified, not intractable, without status migrainosus; Z98.890 Other specified postprocedural states; Z98.52 Vasectomy status; Z98.1 Arthrodesis status; Z87.891 Personal history of nicotine dependence; Z79.899 Other long term (current) drug therapy; Z88.6 Allergy status to analgesic agent
CPT/HCPCS: 88305; 43239; 43248; J2001; J2704; 43249

== ENCOUNTER → 2020-09-11 | Outpatient (CLI) | payer OTHER ==
[2020-09-11 14:49] LABS: Basophils # (A) 0.05 X 10*3/uL (0.00-0.10); Basophils % (A) 0.9 %; Eosinophils # (A) 0.27 X 10*3/uL (0.04-0.35); Eosinophils % (A) 4.6 %; HCT 43.2 % (39.6-50.0); HGB 14.7 g/dL (13.0-17.0); Lymphocytes # (A) 1.83 X 10*3/uL (0.90-5.00); Lymphocytes % (A) 31.4 %; MCH 31.7 pg (27.0-32.0); MCV 93.1 fL (80.0-97.0); Mean Platelet Volume 9.6 fL (9.5-12.2); Monocytes % (A) 6.9 %; Neutrophils # (A) 3.26 X 10*3/uL (1.80-7.70); Platelet Count 280 X 10*3/uL (140-440); RBC 4.64 X 10*6/uL (4.40-5.60); RDW 13.2 % (11.5-14.5); WBC 5.82 X 10*3/uL (4.50-10.00)
[2020-09-11 17:05] LABS: Hemoglobin A1C 5.2 % (4.0-6.0)
[2020-09-11 17:34] LABS: ALT 20 U/L (10-49); AST 20 U/L (14-35); African American GFR (CKD) 99.8 (60.0-200.0); Albumin/Globulin Ratio 1.83 (1.60-3.17); Alkaline Phosphatase 90 U/L (41-126); Bilirubin, Conjugated <0.20 mg/dL (0.20-0.40); Carbon Dioxide 24.1 mmol/L (21.6-31.8); Chloride 109 mmol/L (96-109); Chol/HDL Ratio 4.37; Cholesterol 214 mg/dL (0-200); Globulin 2.3 g/dL (1.6-3.3); Glucose 89 mg/dL (70-110); Non-African American GFR(CKD) 86.2 (60.0-200.0); Potassium 4.5 mmol/L (3.5-5.5); Sodium 141 mmol/L (135-145); Total Bilirubin 0.5 mg/dL (0.2-1.2); Total Protein 6.5 g/dL (6.2-8.2)
== END | disposition home or self-care (01) ==
LOC: LABWHC1 08:21
PROVIDERS: ATTEND Nurse Practitioner Psychiatric/Mental Health
DX: F31.5 Bipolar disorder, current episode depressed, severe, with psychotic features (principal); Z79.899 Other long term (current) drug therapy
CPT/HCPCS: 36415; 80053; 80061; 82248; 83036; 84439; 84443; 85025

== ENCOUNTER → 2020-09-25 | Outpatient (CLI) | payer OTHER | END | disposition home or self-care (01) | LOC: LABWHC1 15:09 | PROVIDERS: ATTEND Nurse Practitioner Family | DX: R11.2 Nausea with vomiting, unspecified (principal) | CPT/HCPCS: U0003; C9803 ==

== ENCOUNTER → 2020-10-14 | Outpatient (CLI) | payer OTHER ==
--- NOTE | 2020-10-14 09:04 | CT ---
EXAMINATION TYPE: CT chest wo con DATE OF EXAM: 10/14/2020 COMPARISON: Chest x-ray April 02, 2020 HISTORY: Personal history of nicotine dependency. Long-term tobacco use. CT DLP: 514 mGycm. Automated Exposure Control for Dose Reduction was Utilized. TECHNIQUE: CT scan of the thorax is performed without IV contrast. FINDINGS: LUNGS: Mild underlying emphysematous change in the lung apices. No pleural effusion or pneumothorax s een bilaterally. No suspicious greater than 5 mm nodules or masses. There is 4 to 5 mm anterior right midlung nodule corresponds to benign intrapulmonary lymph node axial image 34 with coronal image 24 along the fissure. No suspicious focal consolidation. MEDIASTINUM: Lack of IV contrast is noted to limit evaluation for mediastinal and especially hilar ad enopathy. There are no definitive greater than 1 cm mediastinal lymph nodes. No cardiomegaly or per icardial effusion is seen. OTHER: Spine is straightened with mild multilevel spurring. IMPRESSION: Mild emphysematous change without acute pulmonary process.
== END | disposition home or self-care (01) ==
LOC: CPPFTMAIN 07:10
PROVIDERS: ATTEND Family Medicine
DX: J43.8 Other emphysema (principal); Z87.891 Personal history of nicotine dependence
CPT/HCPCS: 71250; 94060; 94726; 94729

== ENCOUNTER → 2020-12-12 | Outpatient (CLI) | payer OTHER ==
--- NOTE | 2020-12-12 09:57 | CT ---
EXAMINATION TYPE: CT lumbar spine wo con DATE OF EXAM: 12/12/2020 9:23 AM COMPARISON: 04/09/2020 HISTORY: low back pain, left lower leg numbness, post surgery CT DLP: 1364 mGycm Automated exposure control for dose reduction was used. Unenhanced CT of the lumbar spine was performed. Bone and soft tissue window settings are submitted as well as coronal and sagittal reconstructions. Postsurgical changes are again noted L5-S1 with grade 1 anterolisthesis. Transpedicular screw extends outside the anterior margin the cortex of both L5 and S1. Chronic deformity of L1 is stable. At T12-L1 there is broad-based disc bulging with mild effacement of thecal sac. Neural foramina demon strate mild narrowing. L1-L2: Severe degenerative disc disease with vacuum disc noted. There is a chronic appearing deformit y of the L1 with a 3 mm retrolisthesis. Broad-based disc bulging seen with flattening of the thecal s ac. Borderline canal stenosis and mild bilateral foraminal encroachment. L2-L3: Circumferential disc bulging with the no definite canal stenosis. No foraminal encroachment. L3-L4: Diffuse circumferential disc bulging with ligamentum flavum hypertrophy. There is facet arthro samira. There is mild bilateral foraminal encroachment. L4-L5: Nondiagnostic assessment due to severe metallic artifact. Postsurgical changes are noted and t here is abnormal attenuation soft tissue which could be on the basis of postsurgical scar or granulat ion tissue posteriorly. L5-S1: Postsurgical change with obscuration of the spinal canal in nondiagnostic assessment. There is a grade 1 anterolisthesis and suspected bilateral foraminal encroachment. Suggestion of previous ana ateral spondylolysis. IMPRESSION: 1. Stable postsurgical change with grade 1 anterolisthesis L5 on S1. Correlate for history of previou s L5 spondylolysis. 2. Multilevel circumferential disc bulging and mild bilateral foraminal encroachment as discussed abo ve is stable. 3. Stable chronic deformity of L1 with retrolisthesis. There is to be thecal sac impression and borde rline to mild central stenosis with bilateral foraminal encroachment
== END | disposition home or self-care (01) ==
LOC: RADCTMAIN 09:00
PROVIDERS: ATTEND Orthopaedic Surgery
DX: M43.16 Spondylolisthesis, lumbar region (principal)
CPT/HCPCS: 72131

== ENCOUNTER → 2021-04-06 | Outpatient (CLI) | payer OTHER ==
[2021-04-06 10:50] LABS: Partial Thromboplastin Time 24.6 sec (22.0-30.0); Prothrombin Time 11.1 sec (9.0-12.0)
[2021-04-06 14:54] LABS: HCT 43.8 % (39.6-50.0); HGB 14.7 g/dL (13.0-17.0); MCH 31.3 pg (27.0-32.0); MCHC 33.6 g/dL (32.0-37.0); MCV 93.4 fL (80.0-97.0); Mean Platelet Volume 9.6 fL (9.5-12.2); NRBC Per 100 WBC 0 /100 WBCS (0.0-0.0); Platelet Count 299 X 10*3/uL (140-440); RBC 4.69 X 10*6/uL (4.40-5.60); RDW 12.9 % (11.5-14.5); WBC 8.86 X 10*3/uL (4.50-10.00)
[2021-04-06 15:52] LABS: African American GFR (CKD) 99.8 (60.0-200.0); Albumin 4.7 g/dL (3.8-4.9); Albumin/Globulin Ratio 2.24 (1.60-3.17); Anion Gap 13.6 mmol/L (10.00-18.00); BUN/Creat Ratio 13.6 Ratio (12.00-20.00); Blood Urea Nitrogen 13.6 mg/dL (9.0-27.0); Calcium 9.9 mg/dL (8.7-10.3); Carbon Dioxide 23.4 mmol/L (20.0-27.5); Globulin 2.1 g/dL (1.6-3.3); Non-African American GFR(CKD) 86.2 (60.0-200.0); Potassium 4.1 mmol/L (3.5-5.5); Total Bilirubin 0.6 mg/dL (0.30-1.20); Total Protein 6.8 g/dL (6.2-8.2)
[2021-04-06 16:51] LABS: Appearance,Urine Clear (Clear); Bilirubin,Urine Negative (Negative); Blood,Urine Negative (Negative); Color,Urine Yellow (Yellow); Ketones,Urine 40 mg/dL (Negative); Leukocyte Esterase,Urine Negative (Negative); Nitrite,Urine Negative (Negative); PH, Urine 6.5 (5.0-8.0); Protein,Urine Negative (Negative); Specific Gravity,Urine 1.023 (1.001-1.030)
== END | disposition home or self-care (01) ==
LOC: LABPAT 08:33
PROVIDERS: ATTEND Orthopaedic Surgery Sports Medicine
DX: Z01.812 Encounter for preprocedural laboratory examination (principal)
CPT/HCPCS: 36415; 80053; 81003; 85027; 85610; 85730; 87070; 93005

== ENCOUNTER 2021-04-23 07:32 | Day surgery (SDC) | payer OTHER ==
[2021-04-16 11:41] VITALS: BMI 27.4
[~2021-04-23 07:32] MED LIST changes: -LIDOCAINE 1% (10MG/ML) FOR IV START INTRADERMA PRN; +MELOXICAM 7.5 MG TAB PO PRN; -TRANEXAMIC ACID 1,000 MG in SODIUM CHLORIDE 0.9% 100 ML IVPB PRN; +TRANEXAMIC ACID IN NACL,ISO-OS 1,000 MG in SALINE 1 100ML.BAG IVPB PRN
[2021-04-23] MEDS ORDERED: HYDROmorphone 0.5 MG/0.5 ML SYRINGE IVP PRN ×3 (07:49→12:05)
[2021-04-23] MEDS ORDERED: LACTATED RINGERS 1,000 ML IV SCH (07:49)
[2021-04-23] MEDS ORDERED: ONDANSETRON 4 MG/2 ML VIAL IVP ONE (07:49)
[2021-04-23] MEDS ORDERED: MIDAZOLAM 2 MG/2 ML VIAL IV PRN (07:49)
[2021-04-23] MEDS ORDERED: DEXAMETHASONE SOD PHOSPHATE 4 MG/ML 1 ML VIAL IV ONE (07:49)
[2021-04-23] MEDS ORDERED: LIDOCAINE 1% (10MG/ML) FOR IV START INTRADERMA PRN (07:49)
[2021-04-23] MEDS ORDERED: MIDAZOLAM 2 MG/2 ML VIAL IVP ONE (09:11)
[2021-04-23] MEDS ORDERED: TRANEXAMIC ACID IN NACL,ISO-OS 1,000 MG/100 ML BAG ONE (09:41)
[2021-04-23] MEDS ORDERED: ROPIVACAINE 5 MG/ML 30 ML VIAL ONE (09:41)
[2021-04-23] MEDS ORDERED: fentaNYL (PF) 50 MCG/ML 2 ML AMP ONE (09:41)
[2021-04-23] MEDS ORDERED: ROCURONIUM 10 MG/ML (5 ML VIAL) IV ONE (09:41)
[2021-04-23] MEDS ORDERED: PROPOFOL 10 MG/ML 20 ML VIAL IV ONE (09:41)
[2021-04-23] MEDS ORDERED: PHENYLEPHRINE-0.9% NACL SYG 1,000 MCG/10 ML SYRINGE ONE (09:41)
[2021-04-23] MEDS ORDERED: GLYCOPYRROLATE 0.2 MG/ML 2 ML VIAL ONE (09:41)
[2021-04-23] MEDS ORDERED: NEOSTIGMINE 1 MG/ML 10 ML VIAL ONE (09:41)
[2021-04-23] MEDS ORDERED: DEXAMETHASONE SOD PHOSPHATE 4 MG/ML 1 ML VIAL ONE (09:41)
[2021-04-23] MEDS ORDERED: ePHEDrine 50 MG/ML 1 ML VIAL ONE (09:41)
[2021-04-23] MEDS ORDERED: LIDOCAINE 1% INJ 10MG/ML (20 ML MDV) ONE (09:41)
[2021-04-23] MEDS ORDERED: SUCCINYLCHOLINE CHLORIDE 100 MG/5 ML SYR IV ONE (09:41)
[2021-04-23] MEDS ORDERED: VANCOMYCIN 1,000 MG VIAL MISCELLANE ONE (10:18)
[2021-04-23] MEDS ORDERED: ceFAZolin 3,000 MG in SODIUM CHLORIDE 0.9% IRRIGATIO 3,000 ML IRRIGATION ONE (10:19)
[2021-04-23] MEDS ORDERED: ONDANSETRON 4 MG/2 ML VIAL IVP PRN (12:05)
[2021-04-23] MEDS ORDERED: SENNOSIDES-DOCUSATE SODIUM 1 EACH TAB PO PRN (12:05)
[2021-04-23] MEDS ORDERED: hydrOXYzine pamoate 25 MG CAP PO PRN (12:05)
[2021-04-23] MEDS ORDERED: METOCLOPRAMIDE 5 MG/ML 2 ML VIAL IVP PRN (12:05)
[2021-04-23] MEDS ORDERED: TEMAZEPAM 15 MG CAP PO PRN (12:05)
[2021-04-23] MEDS ORDERED: HYDROmorphone 1 MG/ML 1 ML SYRINGE IVP PRN (12:05)
[2021-04-23] MEDS ORDERED: diphenhydrAMINE 25 MG CAP PO PRN (12:05)
[2021-04-23] MEDS ORDERED: PROCHLORPERAZINE SUPPOSITORY 25 MG SUPP RECTAL PRN (12:05)
[2021-04-23] MEDS ORDERED: HYDROcodone/APAP 10-325MG 1 EACH TAB PO PRN ×2 (12:08)
--- NOTE | 2021-04-23 12:51 | OP ---
OPERATIVE REPORT DATE OF PROCEDURE: 04/23/2021 SURGEON: Blayne Salazar M.D. SENIOR PYTHON DEVELOPER: Balwinder Nevarez PA-C PREOPERATIVE DIAGNOSIS: Right shoulder osteoarthrosis. POSTOPERATIVE DIAGNOSIS: Right shoulder osteoarthrosis. PROCEDURE PERFORMED: Right total shoulder arthroplasty. ANESTHESIA: General endotracheal. ESTIMATED BLOOD LOSS: 150 mL. TOURNIQUET: None. DRAINS: None. COMPLICATIONS: None apparent. DISPOSITION: Post-Anesthesia Care Unit INDICATIONS: Wiliam is a very pleasant 50-year-old gentleman with long-standing right shoulder pain. Workup including x-rays and CT scan revealed advanced osteoarthrosis of the right shoulder. At this point it is felt that he has failed conservative management and he would like to proceed with operative intervention. Risks of the procedure were discussed with him in detail. These risks included but were not limited to risk of infection, nerve damage, bleeding, pain, instability in the shoulder, loosening of the implants and deep infection. There is also a risk of deep vein thrombosis which could lead to fatal pulmonary embolism. The patient understood these risks. All of his questions with regard to the risks of procedure were answered to his satisfaction. Appropriate informed consent was obtained. DESCRIPTION OF PROCEDURE: The patient was identified in the preoperative holding area. Surgical site was marked by both the patient and myself. He was given 2 grams of Ancef IV for prophylactic purposes. He was then transferred to the operative suite. He was placed supine on the operating room table. A general anesthetic was then administered and dosed per the anesthesia department without apparent complication. Examination under anesthesia was then performed of the right shoulder. He had elevation to 120 degrees. External rotation to the side was to 40 degrees. The patient was then placed into the beach chair position, well padded in preparation for surgery. Great care was taken to ensure that his cervical spine was in neutral alignment, well padded and maintained that way throughout the operative procedure. Great care was also taken to ensure that his legs were appropriately padded as well. The patient's right upper extremity was then prepped and draped in the usual sterile fashion. A standard surgical pause was undertaken to ensure that we were operating on the correct site and that appropriate preoperative antibiotics had been given. All staff in the room were in agreement and we proceeded. The acromion, AC joint, clavicle and coracoid were marked with a surgical pen. A planned incision starting at the level of the clavicle and extending distally over the deltopectoral interval approximately 1 cm lateral to the coracoid was marked with a surgical pen. The incision was then made with a 10 blade scalpel. Dissection was carried down sharply to the deltoid fascia. The deltopectoral interval was then identified at the level of the clavicle. A small band retractor was then placed onto the proximal deltoid. I then released the deltoid fascia on the lateral aspect of the cephalic vein. The vein was preserved and left in its bed medially. The cephalic vein was protected throughout the entire case. I then identified the clavipectoral fascia. This was incised proximally to the level of the coracoacromial ligament. The coracoacromial ligament was left intact. He had quite a bit of scarring from previous surgery. It took a little bit of time to dissect through the scar tissue, which was anterior. I then continued to clear the subacromial and subdeltoid spaces of bursal and scar tissue. I then utilized a Jarrett retractor to hold the deltoid and expose the humeral head. I then proceeded to release the subscapularis and the anterior inferior shoulder capsule. The rotator cuff was inspected. It was found to be intact. The rotator interval was identified. The course of the biceps tendon was also identified. I then released the rotator interval and continued to release it to the base of the coracoid. The subscapularis and capsule were then released intratendinously. The subscapularis and capsule release extended distally in a lazy-S fashion approximately 1 cm medial to the biceps tendon. I then continued to release the capsule along the inferior neck in a vertical fashion to approximately the 6 o'clock position. Great care was taken to ensure that the capsule was always visualized as it was released as to avoid injuring the axillary nerve. I then brought the [place] exterior interior specialist with the arm externally rotated and abducted. I continued to release the capsule inferomedially to the 4 o'clock position. The inferior osteophytes were now removed as well. This was done with a rongeur. I then proceeded with preparation of the humerus. I removed all of the goat's yeung osteophytes. I then removed the subchondral plate from the superior aspect of the humeral head utilizing a large rongeur. We then used the starting reamer to gain access to the humeral canal. This was approximately 1 cm medial to the rotator cuff insertion and 1 cm posterior to the bicipital groove. I then prepared the humeral canal with hand reaming. I started with a 6 mm reamer and incrementally increased until firm resistance was encountered at 11 mm. The reamer handle was then left in place. I then utilized a humeral resection guide set at 30 degrees of retrotorsion. The cutting block was then set 1 to 2 mm above the insertion of the rotator cuff. I then proceeded to osteotomize the humeral head with an oscillating saw. I then removed the resection guide and then completed the osteotomy. I then proceeded to remove the remaining osteophytes with a rongeur. I then proceeded with trial stem placement. I started to broach with a size 6 broach and incrementally increased up to a size 11 broach. The 11 trial stem was then left in place. I then proceeded with trial reduction. I utilized a 46 x 18 x 53 head. This seemed to fit very nicely. The head fit opposite the glenoid. The rotator cuff was not tented. Overhead elevation was 150 degrees and translation was one half of the head in neutral rotation and one quarter of the head inferiorly in 15 to 20 degrees of abduction. I then removed the trial head. The stem was then left in place to protect the proximal humerus. I then proceeded with exposure of the glenoid. At this point I did release the biceps tendon. The biceps tendon was quite macerated in the joint. This was tenotomized at the level of the superior labrum. A bone hook was then used to pull the humerus out laterally. I inspected the joint for any loose bodies. There were large intra-articular loose bodies that were removed. Again at this point the condition of the rotator cuff was inspected. It was found to be in excellent condition. The batman retractor were then placed on the posterior glenoid rim. The arm was placed in approximately 80 degrees of abduction and slight flexion on the Monroy stand. I then proceeded to remove the hypertrophic labrum to definitively identify the actual glenoid. I then selected the size of the glenoid. There were significant glenoid osteophytes. A size 3 glenoid seemed to fit very nicely. I then utilized the starter drill to make the centering hole. I then proceeded to ream the glenoid fossa. This was done with a size 3 reamer. The reaming was taken down to paprika sign. I had a nice bleeding surface. There was a tiny bit of posterior inferior loss. I did preferentially take off slightly more anterior glenoid with the reaming. I then proceeded to place the glenoid drill holes. The peripheral drill holes were then placed and the center hole was drilled as well. I then placed a trial size 3 glenoid and it fit very nicely onto the glenoid. I then proceeded with cementing. I Waterpik'd the wound and the bone. The drill holes were then packed with Ray-Mape sponges. The cement was mixed on the back table by the equal opportunity assistant. The drill holes were then packed with cement utilizing a 20 mL syringe. These were the peripheral drill holes. These were packed very tightly. A small amount of cement was then placed on the posterior aspect of the real glenoid component as well. No cement was placed into the central hole. I then impacted the real glenoid component into place. This was a Biomet size 3 pegged glenoid component with a Regenerex central peg. Excess cement was then removed utilizing a [place] elevator. Pressure was held onto the glenoid component until the cement had hardened. I then removed the batman retractor. I then proceeded with humeral component trial reduction with the real glenoid. The 46 x 18 x 53 head was then placed back onto the stem. Again this was taken through a trial. The head sat opposite the glenoid. The rotator cuff was not tented. The elevation was 150 degrees, internal rotation was to 90 degrees, and translation was one half of the head in neutral rotation and one quarter of the head in 15 to 20 degrees of abduction. I then had the marketing development representative open a 46 x 18 x 53 real head and a size 11 Biomet mini stem. The stem was then impacted into the canal. The real head was then impacted onto a dry [place] taper. The shoulder was then reduced. I then proceeded to closure. Again the wound was thoroughly irrigated with sterile saline solution with antibiotic added. The rotator interval was closed tightly with number 2 coated Vicryl. The subscapularis tenotomy was repaired with number 2 FiberWire interrupted suture. A deep drain was then placed and brought out superiorly away from the incision. Approximately 500 mg of vancomycin powder was then placed deep. The deltopectoral interval was then closed over the vancomycin powder with interrupted 0 Vicryl suture. Again the wound was irrigated. The remaining 500 mg of vancomycin powder was placed subcutaneously. The subcutaneous tissue was then closed with 2-0 Vicryl interrupted suture and the skin was closed with a running 3-0 Quill suture. Dermabond was applied to the incision. Sterile compressive dressing was then applied. The patient's right upper extremity was placed into a shoulder immobilizer. Prior to closure of the deltopectoral interval I did feel for the axillary nerve, which was intact and the tug test was normal. All sponge and needle counts were deemed correct prior to closure. The patient tolerated procedure without apparent complication. He was transferred to the recovery room in stable condition. MMODL / IJN: [id number] /
--- NOTE | 2021-04-23 13:58 | XR ---
Right shoulder HISTORY: Postop Single frontal view of the right shoulder Patient is status post shoulder arthroplasty. There is anatomic alignment in this single view. There is an indwelling drain present. Right lung apex as visualized is normal. Lucencies present within the soft tissues. IMPRESSION: Orthopedic follow-up.
[2021-04-23] MEDS: LACTATED RINGERS 1,000 ML IV SCH ×2 (16:50→23:48)
--- NOTE | 2021-04-23 19:17 | P.ANPRN ---
Procedure Note - Anesthesia - Nerve Block Performed Right Interscalene Single Time Out Performed: Yes Date of Procedure: 04/23/21 Procedure Start Time: 09:10 Procedure Stop Time: 09:14 Location of Patient: PreOp Indication: Acute Post-Operative Pain, Requested by Surgeon Sedation Type: Sedate with meaningful contact maintained Preparation: Sterile Prep Position: Supine Needle Types: Pajunk Needle Gauge: 21 Ultrasound used to visualize needle placement: Yes Ultrasound used to observe medication spread: Yes Blood Aspirated: No Pain Paresthesia on Injection Noted: No Resistance on Injection: Normal Image Stored and Saved: Yes Events: Uneventful and Well Tolerated (ropi .5% 20cc plus dexamethasone 4mg)
[2021-04-24 02:58] VITALS: TEMP 98.6
--- NOTE | 2021-04-24 08:53 | P.DS ---
Providers Expected date of discharge: 04/24/21 Attending physician: Blayne Salazar Consults: 04/23/21 12:05 Consult Physician Routine Consulting Provider: Salma Raines Consult Reason/Comments: post op medical management Do you want consulting provider notified?: Yes Primary care physician: Reginald Wesley - Discharge Diagnosis(es) (1) Osteoarthritis of right shoulder Patient was admitted to the OR on 04/23/21 to undergo a right total shoulder arthroplasty. He had failed conservative measures as an outpatient and desired to proceed with elective surgery after given informed consent. He underwent the above procedure which he tolerated well without complication. Postoperative hospital course has remained without complication. On day of discharge he is afebrile, vital signs stable, labs within acceptable ranges, tolerating by mouth meds and diet, voiding without difficulty, positive flatus, denies abdominal pain or calf pain, pain is controlled on oral pain medication and has no new com plaints. Wound is benign, neurovascular status is intact, calf is soft and nontender, abdomen soft and nontender. Review of systems is negative for numbness, tingling, fever, chills, chest pain, shortness of breath, nausea, vomiting, dizziness, headaches, slurred speech or other. Current Visit: Yes Status: Acute Priority: Medium Procedures: Right TSA Patient Condition at Discharge: Good Plan - Discharge Summary Discharge Rx Participant: Yes New Discharge Prescriptions: New Doxycycline Hyclate 100 mg PO BID #10 tab Docusate [Colace] 100 mg PO BID #60 capsule HYDROcodone/APAP 10-325MG [Lamoure 10-325] 1 tab PO Q4HR PRN #42 tab PRN Reason: Pain No Action SUMAtriptan succinate [Imitrex] 50 mg PO BID PRN PRN Reason: Migraine Headache LORazepam [Ativan] 0.5 mg PO BID PRN PRN Reason: Anxiety Ascorbic Acid [Vitamin C] 2,000 mg PO DAILY Pantoprazole Sodium [Protonix] 40 mg PO QAM Paliperidone [Invega] 6 mg PO BID Chrisney Carbonate 300 mg PO BID Vortioxetine Hydrobromide [Trintellix] 20 mg PO HS Cholecalciferol [Vitamin D3 (25 Mcg = 1000 Iu)] 25 mcg PO DAILY Discharge Medication List SUMAtriptan succinate [Imitrex] 50 mg PO BID PRN 12/12/17 [History] LORazepam [Ativan] 0.5 mg PO BID PRN 04/01/20 [History] Ascorbic Acid [Vitamin C] 2,000 mg PO DAILY 04/16/21 [History] Cholecalciferol [Vitamin D3 (25 Mcg = 1000 Iu)] 25 mcg PO DAILY 04/16/21 [History] Chrisney Carbonate 300 mg PO BID 04/16/21 [History] Paliperidone [Invega] 6 mg PO BID 04/16/21 [History] Pantoprazole Sodium [Protonix] 40 mg PO QAM 04/16/21 [History] Vortioxetine Hydrobromide [Trintellix] 20 mg PO HS 04/16/21 [History] Doxycycline Hyclate 100 mg PO BID #10 tab 04/23/21 [Rx] Docusate [Colace] 100 mg PO BID #60 capsule 04/24/21 [Rx] HYDROcodone/APAP 10-325MG [Lamoure 10-325] 1 tab PO Q4HR PRN #42 tab 04/24/21 [Rx] Follow up Appointment(s)/Referral(s): Blayne Salazar MD [STAFF PHYSICIAN] - 10 Days Activity/Diet/Wound Care/Special Instructions: Non Weight Bearing Maintain sling May shower after 3 days if no bleeding Keep wound clean and dry Take meds as directed F/U with Dr. Salazar in office Discharge Disposition: HOME SELF-CARE
[2021-04-24 09:07] LABS: Basophils # (A) 0.02 X 10*3/uL (0.00-0.10); Basophils % (A) 0.1 %; Eosinophils # (A) 0 X 10*3/uL (0.04-0.35); Eosinophils % (A) 0 %; HCT 37.9 % (39.6-50.0); HGB 12.8 g/dL (13.0-17.0); Immature Grans, Automated 0.3 %; Lymphocytes # (A) 1.69 X 10*3/uL (0.90-5.00); Lymphocytes % (A) 11.5 %; MCH 31.7 pg (27.0-32.0); MCHC 33.8 g/dL (32.0-37.0); MCV 93.8 fL (80.0-97.0); Mean Platelet Volume 9.1 fL (9.5-12.2); Monocytes # (A) 1.29 X 10*3/uL (0.20-1.00); Monocytes % (A) 8.8 %; NRBC Per 100 WBC 0 /100 WBCS (0.0-0.0); Neutrophils # (A) 11.68 X 10*3/uL (1.80-7.70); Neutrophils % (A) 79.3 %; Platelet Count 284 X 10*3/uL (140-440); RBC 4.04 X 10*6/uL (4.40-5.60); RDW 12.5 % (11.5-14.5); WBC 14.73 X 10*3/uL (4.50-10.00)
[2021-04-24 10:11] VITALS: BP 111/67; PULSE 85; RESP 14
--- NOTE | 2021-04-24 11:04 | P.CONS ---
History of Present Illness - Reason for Consult Consult date: 04/24/21 Medical management, postoperative right total shoulder arthroplasty - Chief Complaint Status post right total shoulder arthroplasty - History of Present Illness This is a pleasant 50-year-old male who was admitted under Dr. Blayne Salazar services and status post right total shoulder arthroplasty secondary to right shoulder osteoarthrosis. Patient reports to having right rotator cuff tear and issues since high school and has failed conservative management in the outpatient setting and had been following with orthopedics and was arranged for elective shoulder arthroplasty. Patient is known to have a past medical history of gastroesophageal reflux disease and osteoarthritis with occasional migraines and also some anxiety and depression. Patient was a former smoker that quit approximately 2 years ago. Patient denies drinking and reports to smoking marijuana daily. Patient did receive medical clearance by his primary care provider Dr. Patti Wesley in the outpatient setting. Patient does take medications in the outpatient setting for his anxiety and depression. Patient currently denies any chest pain, shortness of breath, or palpitations. Patient is afebrile. Patient's white blood count mildly elevated on follow-up labs this morning most likely reactive secondary to surgery. Discussed with the patient and recommend following up with primary care provider for repeat labs. Review Of Systems: Constitutional: No fever, no chills, no night sweats. No weight change. No weakness, fatigue or lethargy. No daytime sleepiness. EENT: No headache. No blurred vision or double vision, no loss of vision. No loss of Hearing, no ringing in the ears, no dizziness. No nasal drainage or congestion. No epistaxis. No sore throat. Lungs: No shortness of breath, cough, no sputum production. No wheezing. Cardiovascular: No chest pain, no lower extremity edema. No palpitations. No paroxysmal nocturnal dyspnea. No orthopnea. No lightheadedness or dizziness. No syncopal episodes. Abdominal: No abdominal pain. No nausea, vomiting. No diarrhea. No constipation. No bloody or tarry stools.. No loss of appetite. Patient reports to passing gas but no bowel movement since surgery Genitourinary: No dysuria, increased frequency, urgency. No urinary retention. Musculoskeletal: No myalgias. No muscle weakness, no gait dysfunction, no frequent falls. No back pain. No neck pain. Reports some right shoulder discomfort currently stable Integumentary: No wounds, no lesions. No rash or pruritus. No unusual bruising. No change in hair or nails. Neurologic: No aphasia. No facial droop. No change in mentation. No head injury. No headache. No paralysis. No paresthesia. Psychiatric: Reports history of anxiety and depression currently taking medications. Denies any thoughts of suicide or wanting to harm himself or others. No mood swings. Endocrine: No abnormal blood sugars. No weight change. No excessive sweating or thirst. No cold intolerance. Active Medications Hydrocodone Bitart/Acetaminophen (Hydrocodone/Apap 10-325mg 1 Each Tab) 1 each PO Q4H PRN PRN Reason: Pain Scale 1 to 5 Stop: 05/23/21 12:09 Last Admin: 04/24/21 03:37 Dose: 1 each Documented by: Hydrocodone Bitart/Acetaminophen (Hydrocodone/Apap 10-325mg 1 Each Tab) 2 each PO Q6H PRN PRN Reason: Pain Scale 6 to 10 Stop: 05/23/21 12:09 Diphenhydramine HCl (Diphenhydramine 25 Mg Cap) 25 mg PO HS PRN PRN Reason: Insomnia Stop: 05/23/21 12:06 Hydromorphone HCl (Hydromorphone 0.5 Mg/0.5 Ml Syringe) 0.2 mg IVP Q3HR PRN PRN Reason: Pain Scale 1 to 3 Stop: 05/23/21 12:06 Hydromorphone HCl (Hydromorphone 0.5 Mg/0.5 Ml Syringe) 0.5 mg IVP Q3HR PRN PRN Reason: Pain Scale 4 to 6 Stop: 05/23/21 12:06 Hydromorphone HCl (Hydromorphone 1 Mg/Ml 1 Ml Syringe) 1 mg IVP Q3HR PRN PRN Reason: Pain Scale 7 to 10 Stop: 05/23/21 12:06 Hydroxyzine Pamoate (Hydroxyzine Pamoate 25 Mg Cap) 25 mg PO Q6HR PRN PRN Reason: Nausea/Anxiety Stop: 05/23/21 12:06 Lactated Ringer's (Lactated Ringers) 1,000 mls @ 100 mls/hr IV .Q10H PELON Stop: 05/23/21 12:16 Last Admin: 04/23/21 23:48 Dose: 100 mls/hr Documented by: Lidocaine HCl (Lidocaine 1% (10mg/Ml) For Iv Start) 0.1 ml INTRADERMA PER PROTOCOL PRN PRN Reason: IV Start Stop: 05/23/21 07:50 Metoclopramide HCl (Metoclopramide 5 Mg/Ml 2 Ml Vial) 10 mg IVP Q6HR PRN PRN Reason: Nausea And Vomiting Stop: 05/23/21 12:06 Ondansetron HCl (Ondansetron 4 Mg/2 Ml Vial) 4 mg IVP Q8HR PRN PRN Reason: Nausea And Vomiting Stop: 05/23/21 12:06 Prochlorperazine Maleate (Prochlorperazine Suppository 25 Mg Supp) 25 mg RECTAL BID PRN PRN Reason: Nausea And Vomiting Stop: 05/23/21 12:06 Senna/Docusate Sodium (Sennosides-Docusate Sodium 1 Each Tab) 2 each PO HS PRN PRN Reason: Constipation Stop: 05/23/21 12:06 Temazepam (Temazepam 15 Mg Cap) 15 mg PO HS PRN PRN Reason: Insomnia Stop: 05/23/21 12:06 Physical exam: Gen: This is a 50-year-old male awake, alert and oriented 3, well-developed, well-nourished. HEENT: Head is atraumatic, normocephalic. Pupils equal, round. Sclerae is anicte taylor. NECK: Supple. No JVD. No lymphadenopathy. No thyromegaly. LUNGS: Clear to auscultation. No wheezes or rhonchi. No intercostal retractions. HEART: Regular rate and rhythm. No murmur. ABDOMEN: Soft. Bowel sounds are present. No masses. No tenderness. EXTREMITIES: No pedal edema. No calf tenderness. Right shoulder surgical dressing is dry and intact with right shoulder sling noted NEUROLOGICAL: Patient is awake, alert and oriented x3. Cranial nerves 2 through 12 are grossly intact. Assessment: Osteoarthrosis of the right shoulder status post right total shoulder arthroplasty Leukocytosis, most likely reactive secondary to surgery Gastroesophageal reflux disease History of osteoarthritis next line history of migraines Anxiety/depression Remote history of nicotine dependence, reports to quitting 2 years ago Daily use of marijuana GI prophylaxis DVT prophylaxis per orthopedics Full code Plan: Encourage incentive spirometer use at least 10 times every hour while awake Pain management and DVT prophylaxis per orthopedic services Appropriate resume home medications Medication reconciliation done Encourage the patient to follow-up with primary care provider this week Continue with right shoulder sling and rehab per orthopedic services Recommend repeat labs in 2-3 days in the outpatient setting to monitor the CBC Will continue to follow along with orthopedics during hospitalization. Patient anticipates discharge today. Thank you for this consultation. The impression and plan of care has been dictated by Emili Sharpe, Nurse Practitioner as directed. Dr. Bessy MD I have performed a history and examination and MDM of this patient, discussed the same with the dictator, and agree with the dictator's assessment and plan as written ,documented as a scribe. Based on total visit time, I have performed more than 50% of the visit. Review of Systems Constitutional: Denies chills, Denies fever Ears, nose, mouth and throat: Denies headache, Denies sore throat Cardiovascular: Denies chest pain, Denies shortness of breath Respiratory: Denies cough Gastrointestinal: Denies abdominal pain, Denies diarrhea, Denies nausea, Denies vomiting Musculoskeletal: Denies myalgias Integumentary: Denies pruritus, Denies rash Neurological: Denies numbness, Denies weakness Psychiatric: Denies anxiety, Denies depression Endocrine: Denies fatigue, Denies weight change Past Medical History Past Medical History: GERD/Reflux, Osteoarthritis (OA) Additional Past Medical History / Comment(s): migraines,hiatal hernia History of Any Multi-Drug Resistant Organisms: None Reported Past Surgical History: Hernia Repair, Orthopedic Surgery Additional Past Surgical History / Comment(s): rt shoulder rotator cuff surgery ,vasectomy, ana carpal tunnel, robotic laparoscopic repair left inguinal hernia Past Anesthesia/Blood Transfusion Reactions: Motion Sickness Past Psychological History: Anxiety, Depression Additional Psychological History / Comment(s): "I hear voices" Smoking Status: Former smoker Past Alcohol Use History: None Reported Additional Past Alcohol Use History / Comment(s): started smoking at age 16, 1/2 ppd, quit smoking September 2019 Past Drug Use History: Marijuana Additional Drug Use History / Comment(s): daily - Past Family History Mother Family Medical History: No Reported History Medications and Allergies Home Medications Medication Instructions Recorded Confirmed Type SUMAtriptan succinate [Imitrex] 50 mg PO BID PRN 12/12/17 04/23/21 History LORazepam [Ativan] 0.5 mg PO BID PRN 04/01/20 04/23/21 History Ascorbic Acid [Vitamin C] 2,000 mg PO DAILY 04/16/21 04/23/21 History Cholecalciferol [Vitamin D3 (25 25 mcg PO DAILY 04/16/21 04/23/21 History Mcg = 1000 Iu)] [place] Carbonate 300 mg PO BID 04/16/21 04/23/21 History Paliperidone [Invega] 6 mg PO BID 04/16/21 04/23/21 History Pantoprazole Sodium [Protonix] 40 mg PO QAM 04/16/21 04/23/21 History Vortioxetine Hydrobromide 20 mg PO HS 04/16/21 04/23/21 History [Trintellix] Doxycycline Hyclate 100 mg PO BID #10 tab 04/23/21 Rx Docusate [Colace] 100 mg PO BID #60 capsule 04/24/21 Rx HYDROcodone/APAP 10-325MG [[place] 1 tab PO Q4HR PRN #42 tab 04/24/21 Rx 10-325] Allergies Allergy/AdvReac Type Severity Reaction Status Date / Time aspirin AdvReac Nausea Verified 04/23/21 07:59 Physical Exam Vitals: Vital Signs Temp Pulse Pulse Resp BP Pulse Ox 04/24/21 02:00 98.6 F 76 15 114/70 95 04/23/21 20:00 97.7 F 84 16 117/64 93 L 04/23/21 17:23 90 117/74 95 04/23/21 17:08 85 118/74 95 04/23/21 16:53 91 111/69 96 04/23/21 16:38 85 113/72 95 04/23/21 16:23 80 107/72 96 04/23/21 16:08 92 114/72 96 04/23/21 15:53 90 95/60 95 04/23/21 15:38 99 114/70 96 04/23/21 15:23 97.8 F 88 105/68 95 04/23/21 14:30 74 16 103/63 96 04/23/21 14:16 77 16 106/66 96 04/23/21 14:00 74 16 102/66 96 04/23/21 13:46 79 16 106/66 96 04/23/21 13:31 88 16 106/68 96 04/23/21 13:15 89 16 102/65 96 04/23/21 13:02 88 16 121/83 100 04/23/21 12:46 79 16 113/68 100 04/23/21 12:30 83 16 118/67 100 04/23/21 12:16 85 16 119/68 100 04/23/21 12:06 97.8 F 85 16 125/70 100 04/23/21 09:21 67 15 114/65 100 Intake and Output 04/23/21 04/24/21 04/24/21 22:59 06:59 14:59 Other: Voiding Method Toilet # Voids 0 3 Results CBC & Chem 7: 04/24/21 05:54 Labs: Abnormal Lab Results - Last 24 Hours (Table) 04/24/21 Range/Units 05:54 WBC 14.73 H (4.50-10.00) X 10*3/uL RBC 4.04 L (4.40-5.60) X 10*6/uL Hgb 12.8 L (13.0-17.0) g/dL Hct 37.9 L (39.6-50.0) % MPV 9.1 L (9.5-12.2) fL Immature Gran # 0.05 H (0.00-0.04) X 10*3/uL Neutrophils # 11.68 H (1.80-7.70) X 10*3/uL Monocytes # 1.29 H (0.20-1.00) X 10*3/uL Eosinophils # 0 L (0.04-0.35) X 10*3/uL Assessment and Plan Time with Patient: Greater than 30
== END 2021-04-24 13:13 | disposition home or self-care (01) ==
LOC: OR 07:32 → 4SSUR 12:06 → OR 04-24 13:13
PROVIDERS: ATTEND Orthopaedic Surgery Sports Medicine
DX: M19.011 Primary osteoarthritis, right shoulder (principal); D72.829 Elevated white blood cell count, unspecified; F32.A Depression, unspecified; F41.9 Anxiety disorder, unspecified; K21.9 Gastro-esophageal reflux disease without esophagitis; K44.9 Diaphragmatic hernia without obstruction or gangrene; G43.909 Migraine, unspecified, not intractable, without status migrainosus; Z79.899 Other long term (current) drug therapy; Z88.6 Allergy status to analgesic agent; Z87.891 Personal history of nicotine dependence; Z98.1 Arthrodesis status; Z98.52 Vasectomy status; Z98.890 Other specified postprocedural states; Z83.3 Family history of diabetes mellitus
CPT/HCPCS: 64415; 76942; 85025; 88300; 73020; 23472; C1776; C1713; J2250; J3370; J1100; J2710; J0690 ×2; J2405; J2001; J3010; J2795; J2370; J0330; J2704

== ENCOUNTER → 2022-09-30 | Outpatient (CLI) | payer OTHER ==
--- NOTE | 2022-09-30 12:01 | MR ---
EXAMINATION TYPE: MR lumbar spine wo/w con DATE OF EXAM: 09/30/2022 11:19 AM COMPARISON: NONE HISTORY: Low back pain, numbness Left foot, Hx back surgery 2020 CONTRAST: The patient was injected with 8 mL intravenous Gadavist gadolinium contrast. Multiplanar, MultiSpin echo imaging of the lumbar spine was performed. T11-T12: Mild disc desiccation. Posterior disc bulge with effacement of the ventral thecal sac. Hyper trophic change seen with [id number] central stenosis noted. Moderate right foraminal encroachme nt. T12-L1: Moderate disc desiccation. Posterior disc bulge with effacement of the ventral thecal sac. M oderate central stenosis. Mild right-sided foraminal encroachment. 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 L1-L2: Moderate to severe disc desiccation broad-based posterior disc bulge. Effacement of the ventra l thecal sac with bilateral lateral recess stenosis and bilateral foraminal encroachment. No evidence for central stenosis at this time. L2-L3: Normal disc appearance without desiccation. No herniation, protrusion or disc bulging. No ca nal stenosis is present. Foramina are patent bilaterally. L3-L4: Normal disc appearance without desiccation. No herniation, protrusion or disc bulging. No ca nal stenosis is present. Foramina are patent bilaterally. L4-L5: Mild disc desiccation with posterior disc bulge. Effacement ventral thecal sac with borderline to mild central stenosis. Bilateral foraminal encroachment. L5-S1: Grade 2 anterolisthesis measuring 1.1 cm. Pedicular screws result in metallic susceptibility a rtifact limiting evaluation. There is distortion of the thecal sac without definite stenosis. Interve rtebral body spacer is noted. Lumbar segments are intact. No paraspinal masses are identified. Conus medullaris has a normal appe arance. No pathologic enhancement seen. IMPRESSION: 1. Multilevel degenerative disc disease. 2. Postoperative changes L5-S1 with pedicular screws in place and intervertebral body spacer. Continu ed grade 2 anterolisthesis. 3. Central stenosis at several levels as outlined above as well as varying degrees of foraminal encro achment.
== END | disposition home or self-care (01) ==
LOC: RADMRIMAIN 09:57
PROVIDERS: ATTEND Orthopaedic Surgery
DX: M51.36 Other intervertebral disc degeneration, lumbar region (principal); M48.061 Spinal stenosis, lumbar region without neurogenic claudication; M43.26 Fusion of spine, lumbar region; M43.17 Spondylolisthesis, lumbosacral region
CPT/HCPCS: 72158; A9585

== ENCOUNTER → 2023-01-24 | Outpatient (CLI) | payer OTHER | END | disposition home or self-care (01) | LOC: LABPAT 15:27 | PROVIDERS: ATTEND Orthopaedic Surgery | DX: Z01.812 Encounter for preprocedural laboratory examination (principal); M51.26 Other intervertebral disc displacement, lumbar region; M54.16 Radiculopathy, lumbar region | CPT/HCPCS: 86850; 86900; 86901; 87070 ==

== ENCOUNTER 2023-02-01 07:30 | Inpatient (IN) | payer MEDICARE, OTHER ==
[2023-01-26 09:52] VITALS: BMI 32.2
--- NOTE | 2023-01-31 19:51 | P.HPOR ---
History of Present Illness H&P Date: 01/24/23 .D:Date: 01/24/23 : 02:41pm .T:Title: [facility] History and Physical Date of :66 [id number]: NKDA Age: 52 year Height: 5'4" Weight: 180 lbs BP:126/76 BMI: 30.90 kg/m2 Occupation: [employer] VAS: 6 Hand: Right Spine Surgery Risk Review Mr. Tarango is presenting for evaluation of low back and bilateral lower extremity pain, bilateral lower extremity numbness and tingling. It was my pleasure to have seen and examined Mr. Tarango. In our visit today we have had a chance to go over subjective complaints, physical examination findings and treatments including the natural course history without intervention and various interventional options. The patients imaging demonstrates: [facility]30[facility]22 of LumbarSpine:Images reviewed with pt and . At this time there is ASD noted at L4-5 with disc degeneration, height loss, bulging causing stenosis at the L4- 5 level. Ther eis no evidence of hardware migration or issues. There is listhesis lf L4-5 which is mobile and semi reduced on this supine film. There is some moderate foraminal stenosis still present at L5-S1, however this is much improved since previously. No other issues noted at this time. XRay Lumbar AP/lateral 2 views taken at [facility] on 09/27/22 of Lumbar Spine: ASD L4-5 with mobile listheis noted. Disc degeneration, height loss, facet arthrosis all noted as well. No fractures noted. There is good bony formation anteriorly at L5-S1. There is question of long screw at S1 on the right. No fractures noted. No lesions noted. No other complicating process seen other than L4-5 ASD. On physical exam, Mr. Tarango demonstrates: A continued ache-like burning pain throughout the low back that radiates down into the bilateral lower extremities. He notes his lower extremity radicular symptoms have worsened over the last 1 to 2 weeks. The patient notes that he is frequently standing on one leg at a time due to worsening cramp-like sensations throughout the bilateral calf. The patient states that is symptoms are exacerbated by all activity, which makes it very difficult for him to complete many of activities of daily living. The patient notes moderate to severe sleep disturbances due to his ongoing pain and associated symptoms. The patient states that his symptoms have started to become intractable. I have explained to the patient that as their condition progresses it will cause further neurological deficits and eventual paralysis. Based on the patients imaging, physical exam, and the rapid progression and disabling nature of their symptoms, at this time I recommend surgery in the form of a: Revision L4-pelvis decompression and fusion. I discussed the risk and benefits of this procedure at length with Mr. Tarango. The patient agreed to considered pursuing the procedure abovementioned. Prior to surgery, she should follow up with her PCP (Cardio, ID, IM etc) for clearance. Questions were invited and answered, and the patient wishes to proceed as outlined below. Currently, I am recommendin. Revision L4-pelvis decompression and fusion 2.Follow up with PCP for surgical clearance 3.Review of surgical risks and benefits as well as an educational packet on the proposed surgical procedure. Risks: All surgical procedures come with inherent risks, including those related to positioning, anesthesia, intraoperative findings, and postoperative complications. It is important to understand that surgery does not come with any guarantee of a successful outcome as complications and adverse events are always possible. The patient was given a handout in office today discussing the surgical procedure and risks associated with the intervention, both of which were discussed with the patient. These risks include but are not limited to the following: * Experiencing same, different or even worse symptoms in back, neck, arms, or legs compared to before surgery. Requiring further surgery or other forms of treatment presently or at some time in the future at same or other levels of the intended spine surgery. On an extreme but fortunately relatively rare basis severe complication such as blindness, stroke, heart attack, temporary and/or permanent nerve injury, paralysis, coma, or may occur, sometimes without known explanation. Surgical complications may include but are not limited to risk of infection, fluid accumulation in the surgical dissection site, including a seroma or hematoma, that requires additional surgery, wound drainage, bleeding, new numbness or weakness, vision changes/loss, spinal fluid leakage, non-healing and/or infected incision, headaches, difficulty or inability to swallow, hoarseness, hemopneumothorax, pneumothorax, impotence, retrograde ejaculation, vaginal dryness; injury to nerves, spinal cord, blood vessels, lymphatics or other vital organs (i.e., bowel injury, injury to the great vessels); heterotopic bone formation; complications related to the hardware such as screws, rods, cages including misplaced hardware, device failure, instrumentation at the wrong spine level, hardware fracture/breakage, or hardware loosening; vertebral failure of the spinal column above or below the newly placed hardware; retained surgical instrumentations or devices and the need for further surgery. * Medical risks of the planned spine surgery include but are not limited to generalized Infections to the whole body or local areas outside of the surgical site (sepsis), heart attack, bleeding, anaphylaxis, meningitis, seizure, epilepsy, hearing loss, burn valerio, laceration of the head or other areas of the body, bruising, hypersensitivity of the skin, bladder over distension; allergic reaction; shoulder injury related to positioning; fat, blood and air clots to other areas of the body like heart, lungs, brain; failure of internal organs such as lungs, kidneys, liver and excessive bleeding. If blood transfusions are necessary, note that transfusions may cause intolerance reactions such as anaphylaxis or other complex reactions. Despite best efforts, the results of spine surgery might not heal in terms of bone, soft tissues such as skin, fascia, ligaments, and joints. Additionally, in order to achieve best possible results, spine surgery may be carried out beyond the initially planned levels and involve decompression, fusion including insertion of hardware at levels other than the original intended area of surgical interest change some portions of the procedure in order to ensure the best possible outcomes. With spine surgery and spinal fusion, there are different off label uses of instrumentation (devices, implants and hardware) as well as biological substances (bone morphogenic proteins, demineralized bone matrix) as well as using extra bone from allograft sources (i.e. cadaver bone) or autograft (iliac crest bone, ribs, or the spine itself). The patient has been given information about these practices and their inherent risks and benefits. [facility] is an educational center that serves as a training facility for neurosurgical and orthopedic PROJECT ADMINISTRATOR and Nursing students. Physician assistants are medically trained surgical providers who function in the outpatient, inpatient, and operating room setting under the direct supervision of the attending surgeon. [facility] has multiple operating rooms with single and overlapping rooms running daily. They currently function under the required guidelines as produced by the [facility] Finance Committee with regards to the overlapping rooms and will continue to comply with changes to this policy as they occur. The requirements include and are complied with as follows: (1) the critical portions of the overlapping rooms will not occur at the same time, (2) the attending physician will be physically present during the critical portions of the procedure and immediately available during the entire case, and (3) a back-up attending is designated should the primary attending not be immediately available. The patient has had a chance to review all the listed information, has been given print outs detailing this information, and has had all his/her questions answered to their satisfaction. It was my pleasure to have seen and examined Mr. Tarango. In our visit today we have had a chance to go over my understanding of our patient's current condition, the natural course history without intervention and various interventional options. Questions were invited and answered, and the patient wishes to proceed as outlined above. I have seen and examined the patient for 25 minutes and we have spent more than 50% of the time in repeat and detailed counseling about the patient's condition, its natural course history with out and as much as can be predicted with surgery and re-review of various surgical treatment options. In conclusion, Mr. Tarango requested we proceed with the above suggested surgery and are willing to accept risks and limitations of the suggested surgery as nature of the disease process and our best attempts at treatment for the condition. Thank you again for allowing us to be part of your patient's care. Please don't hesitate to contact me if you have any further questions. Follow-up: Post procedure Patient Education: (Informational booklet, instructions, etc) given at today's appointment: Yes .ED:Patient Education: Y Medications Reviewed: YES In our visit today Mr. Tarango and I have had a chance to go over my understanding of the patient's current condition, the natural course history without intervention and various interventional options. Questions were invited and answered, and the patient wishes to proceed as outlined above. I will be sure to keep you updated afterMr. Tarango returns here for further follow-up. Thank you again for your referral. Please do not hesitate to contact me if you have any further questions. Signed and authenticated by: Hilario Lucas [facility] [address] [place] [address] [address] [place] [address] This message is confidential, intended only for the named recipient(s) and may contain information that is privileged or exempt from disclosure under applicable law. If you are not the intended recipient(s), you are notified that the dissemination, distribution or copying of this information is strictly prohibited. If you received this message in error, please notify the sender then delete this message. Patient verbalizes understanding of the information discussed. The above note was initiated by Rosaura Brooke, physician recording assistant softball coach for Dr. Hilario Holland. This note has been reviewed by Dr. Holland, who has made his personal changes and impressions for this document. CC: Reginald Wesley D.O. # SIGNED BY Hilario Holland (GOO)01/28/2023 03:03PM Past Medical History Past Medical History: GERD/Reflux, Osteoarthritis (OA) Additional Past Medical History / Comment(s): Frequent migraine headaches especially w/stressful situations. Pain and burning down both legs. History of Any Multi-Drug Resistant Organisms: None Reported Past Surgical History: Back Surgery, Hernia Repair, Orthopedic Surgery Additional Past Surgical History / Comment(s): Right shoulder rotator cuff surgery , vasectomy, bilateral carpal tunnel, robotic laparoscopic repair left inguinal hernia. Past Anesthesia/Blood Transfusion Reactions: No Reported Reaction Past Psychological History: Anxiety Smoking Status: Former smoker Past Alcohol Use History: None Reported Additional Past Alcohol Use History / Comment(s): Started smoking at age 16, 1/2 ppd, quit September 2019. Past Drug Use History: Marijuana Additional Drug Use History / Comment(s): Hx heavy Marijuana use daily use, quit Nov 2022. - Past Family History Mother Family Medical History: No Reported History Medications and Allergies Home Medications Medication Instructions Recorded Confirmed Type SUMAtriptan succinate [Imitrex] 50 mg PO BID PRN 12/12/17 01/26/23 History Pantoprazole Sodium [Protonix] 40 mg PO QAM 04/16/21 01/26/23 History Allergies Allergy/AdvReac Type Severity Reaction Status Date / Time aspirin AdvReac Nausea Verified 01/26/23 09:35 Physical Examination Osteopathic Statement: *. No significant issues noted on an osteopathic structural exam other than those noted in the History and Physical/Consult.
[~2023-02-01 07:30] MED LIST changes: -MELOXICAM 7.5 MG TAB PO PRN; +TRANEXAMIC 1,000 MG/100ML-NACL 1,000 MG in SALINE 1 100ML.BAG IVPB PRN; -TRANEXAMIC ACID IN NACL,ISO-OS 1,000 MG in SALINE 1 100ML.BAG IVPB PRN
[2023-02-01] MEDS ORDERED: LACTATED RINGERS 1,000 ML IV ONE ×3 (09:59→12:45)
[2023-02-01] MEDS ORDERED: GLYCOPYRROLATE 0.2 MG/ML 2 ML VIAL ONE (11:18)
[2023-02-01] MEDS ORDERED: TRANEXAMIC 1,000 MG/100ML-NACL PREMIX BAG ONE (11:18)
[2023-02-01] MEDS ORDERED: ROCURONIUM 10 MG/ML (5 ML VIAL) IV ONE (11:18)
[2023-02-01] MEDS ORDERED: HYDROmorphone (PF) 1 MG/ML ONE (11:18)
[2023-02-01] MEDS ORDERED: MIDAZOLAM 2 MG/2 ML VIAL ONE (11:18)
[2023-02-01] MEDS ORDERED: SUCCINYLCHOLINE CHLORIDE 200 MG/10 ML VIAL IV ONE (11:18)
[2023-02-01] MEDS ORDERED: PROPOFOL 10 MG/ML 20 ML VIAL IV ONE (11:18)
[2023-02-01] MEDS ORDERED: KETAMINE HCL IN 0.9 % NACL 50 MG/5 ML SYRINGE ONE (11:18)
[2023-02-01] MEDS ORDERED: ONDANSETRON 4 MG/2 ML VIAL ONE (11:18)
[2023-02-01] MEDS ORDERED: PHENYLEPHRINE-0.9% NACL SYG 1,000 MCG/10 ML SYRINGE ONE (11:18)
[2023-02-01] MEDS ORDERED: NEOSTIGMINE 1 MG/ML 10 ML VIAL ONE (11:18)
[2023-02-01] MEDS ORDERED: fentaNYL (PF) 50 MCG/ML 2 ML AMP ONE (11:18)
[2023-02-01] MEDS ORDERED: LIDOCAINE 1% INJ 10MG/ML (20 ML MDV) ONE (11:18)
[2023-02-01] MEDS ORDERED: PHENYLEPHRINE 10 MG/ML VIAL ONE (11:18)
[2023-02-01] MEDS ORDERED: THROMBIN (BOVINE) 5,000 UNIT VIAL TOPICAL ONE (11:52)
[2023-02-01] MEDS ORDERED: ceFAZolin 3,000 MG in SODIUM CHLORIDE 0.9% IRRIGATIO 3,000 ML IRRIGATION ONE (11:52)
[2023-02-01] MEDS ORDERED: GENTAMICIN 80 MG in SODIUM CHLORIDE 0.9% IRRIGATIO 3,000 ML IRRIGATION ONE (11:52)
[2023-02-01] MEDS ORDERED: GELATIN SPONGE,ABSORB (LARGE) 1 EACH SPONGE TOPICAL ONE (11:52)
[2023-02-01] MEDS ORDERED: HYDROcodone/APAP 10-325MG 1 EACH TAB PO PRN (14:32)
[2023-02-01] MEDS ORDERED: SENNOSIDES-DOCUSATE SODIUM 1 EACH TAB PO PRN (14:32)
[2023-02-01] MEDS ORDERED: HYDROmorphone 0.5 MG/0.5 ML SYRINGE IVP PRN (14:32)
[2023-02-01] MEDS ORDERED: HYDROcodone/APAP 5-325MG 1 EACH TAB PO PRN (14:32)
[2023-02-01] MEDS ORDERED: MAGNESIUM HYDROXIDE 2,400 MG/30 ML CUP PO PRN (14:32)
[2023-02-01] MEDS ORDERED: VANCOMYCIN 1,000 MG VIAL MISCELLANE ONE (14:59)
--- NOTE | 2023-02-01 15:24 | FL ---
EXAMINATION TYPE: FL guidance operating room, XR lumbar spine 2 or 3V DATE OF EXAM: 02/01/2023 Comparison: None Clinical History: 52-year-old male ADJACENT SEGMENT DISEASE RADICULOPATHY Findings: PLDF L4-PELVIS. 1MIN 4 SEC FL TIME. 0.2281.98 mGycm2 DAP Total images 6 Impression: Intraoperative fluoroscopy as above.
[2023-02-01] MEDS ORDERED: HYDROcodone/APAP 7.5-325MG 1 EACH TAB PO PRN (15:44)
--- NOTE | 2023-02-01 16:15 | P.OP ---
Date of Procedure: 02/01/23 Preoperative Diagnosis: M96.0 Pseudarthrosis after fusion or arthrodesis M47.26 Other spondylosis with radiculopathy, lumbar region M47.27 Other spondylosis with radiculopathy, lumbosacral region M47.16 Other spondylosis with myelopathy, lumbar region M62.562 Muscle wasting and atrophy, not elsewhere classified, left lower leg M48.062 Spinal stenosis, lumbar region with neurogenic claudication M51.16 Intervertebral disc disorders with radiculopathy, lumbar region M51.17 Intervertebral disc disorders with radiculopathy, lumbosacral region Postoperative Diagnosis: M96.0 Pseudarthrosis after fusion or arthrodesis M47.26 Other spondylosis with radiculopathy, lumbar region M47.27 Other spondylosis with radiculopathy, lumbosacral region M47.16 Other spondylosis with myelopathy, lumbar region M62.562 Muscle wasting and atrophy, not elsewhere classified, left lower leg M48.062 Spinal stenosis, lumbar region with neurogenic claudication M51.16 Intervertebral disc disorders with radiculopathy, lumbar region M51.17 Intervertebral disc disorders with radiculopathy, lumbosacral region Procedure(s) Performed: * 32013: ARTHRODESIS, COMBINED POSTERIOR OR POSTEROLATERAL TECHNIQUE WITH POSTERIOR INTERBODY TECHNIQUE INCLUDING LAMINECTOMY AND/OR DISCECTOMY SUFFICIENT TO PREPARE INTERSPACE (OTHER THAN FOR DECOMPRESSION), SINGLE INTERSPACE, LUMBAR; L4-5 * 48494/50: ARTHRODESIS, BILATERAL SACROILIAC JOINT, OPEN, INCLUDES OBTAINING BONE GRAFT, INCLUDING INSTRUMENTATION, WHEN PERFORMED * 95941: LAMINECTOMY, FACETECTOMY, OR FORAMINOTOMY (UNILATERAL OR BILATERAL WITH DECOMPRESSION OF SPINAL CORD, CAUDA EQUINA AND/OR NERVE ROOT[S] [EG, SPINAL OR LATERAL RECESS STENOSIS]), DURING POSTERIOR INTERBODY ARTHRODESIS, LUMBAR; SINGLE VERTEBRAL SEGMENT; L4-5 * 29429: POSTERIOR SEGMENTAL INSTRUMENTATION (EG, PEDICLE FIXATION, DUAL RODS WITH MULTIPLE HOOKS AND SUBLAMINAR WIRES); 3 TO 6 VERTEBRAL SEGMENTS; L4- PELVIS * 75574: PELVIC FIXATION (ATTACHMENT OF CAUDAL END OF INSTRUMENTATION TO PELVIC BONY STRUCTURES) OTHER THAN SACRUM; BILATERAL S2AI SCREW FIXATION * 29427: REMOVAL OF POSTERIOR SEGMENTAL INSTRUMENTATION; L5-S1 * 50189: INSERTION OF INTERBODY BIOMECHANICAL DEVICE(S) (EG, SYNTHETIC CAGE, MESH) WITH INTEGRAL ANTERIOR INSTRUMENTATION FOR DEVICE ANCHORING (EG, SCREWS, FLANGES), WHEN PERFORMED, TO INTERVERTEBRAL DISC SPACE IN CONJUNCTION WITH INTERBODY ARTHRODESIS, EACH INTERSPACE; LUMBAR 4-5 * 50582: ARTHRODESIS, COMBINED POSTERIOR OR POSTEROLATERAL TECHNIQUE WITH POSTERIOR INTERBODY TECHNIQUE INCLUDING LAMINECTOMY AND/OR DISCECTOMY SUFFICIENT TO PREPARE INTERSPACE (OTHER THAN FOR DECOMPRESSION), SINGLE INTERSPACE, LUMBAR; EACH ADDITIONAL INTERSPACE (LIST SEPARATELY IN ADDITION TO CODE FOR PRIMARY PROCEDURE); REVISION L5-S1 * 71210 : LAMINECTOMY, FACETECTOMY, OR FORAMINOTOMY (UNILATERAL OR BILATERAL WITH DECOMPRESSION OF SPINAL CORD, CAUDA EQUINA AND/OR NERVE ROOT[S] [EG, SPINAL OR LATERAL RECESS STENOSIS]), DURING POSTERIOR INTERBODY ARTHRODESIS, LUMBAR; EACH ADDITIONAL SEGMENT; L5-S1 REVISION * 21420: EXPLORATION OF SPINAL FUSION; L5-S1 DUE TO PSEUDOARTHROSIS * 53437: STEREOTACTIC COMPUTER-ASSISTED (NAVIGATIONAL) PROCEDURE; SPINAL; MATTY NAVIGATION FOR SCREW PLACEMENT AND LAMINECTOMY NAVIGATION * USE OF IONM ALL SCREWS TESTING >20mA * CPTMOD 22: THIS CASE TOOK 75% LONGER THAN EXPECTED DUE TO CORMORBID CONDITIONS, EXTENT OF LUMBAR DISEASE AND HIGH TECHNICALITY OF THE CASE. Implants: -REMOVAL MATTY EVEREST SCREW AND ASHLEY SYSTEM -IMPLANT, MATTY EVEREST ASHLEY AND SCREW SYSTEM -MATTY SI FUSION SCREWS X2 -GLOBUS SABLE CAGE 8 DEG; 12 MM; 10-17MM x1 -MAGNATOS, ALLOCELL, ARTHROCELL, IFACTOR, AUTOGRAFT Anesthesia: ERIK Surgeon: Hilario Holland Animal Shelter Worker #1: Royce Olivares (wAS PRESENT AND ASSISTED WITH ALL ASPECTS OF THE CASE FROM POSITION TO CLOSURE) Estimated Blood Loss (ml): 300 IV fluids (ml): 2,400 Urine output (ml): 400 Pathology: none sent Condition: stable Disposition: PACU Indications for Procedure: Mr. Tarango is presenting for evaluation of low back and bilateral lower extremity pain, bilateral lower extremity numbness and tingling. It was my pleasure to have seen and examined Mr. Tarango. In our visit today we have had a chance to go over subjective complaints, physical examination findings and treatments including the natural course history without intervention and various interventional options. The patients imaging demonstrates: [facility]30[facility]2022 of LumbarSpine:Images reviewed with pt and . At this time there is ASD noted at L4-5 with disc degeneration, height loss, bulging causing stenosis at the L4- 5 level. Ther eis no evidence of hardware migration or issues. There is listhesis lf L4-5 which is mobile and semi reduced on this supine film. There is some moderate foraminal stenosis still present at L5-S1, however this is much improved since previously. No other issues noted at this time. XRay Lumbar AP/lateral 2 views taken at [facility] on 09/27/22 of Lumbar Spine: ASD L4-5 with mobile listheis noted. Disc degeneration, height loss, facet arthrosis all noted as well. No fractures noted. There is good bony formation anteriorly at L5-S1. There is question of long screw at S1 on the right. No fractures noted. No lesions noted. No other complicating process seen other than L4-5 ASD. On physical exam, Mr. Tarango demonstrates: A continued ache-like burning pain throughout the low back that radiates down into the bilateral lower extremities. He notes his lower extremity radicular symptoms have worsened over the last 1 to 2 weeks. The patient notes that he is frequently standing on one leg at a time due to worsening cramp-like sensations throughout the bilateral calf. The patient states that is symptoms are exacerbated by all activity, which makes it very difficult for him to complete many of activities of daily living. The patient notes moderate to severe sleep disturbances due to his ongoing pain and associated symptoms. The patient states that his symptoms have started to become intractable. I have explained to the patient that as their condition progresses it will cause further neurological deficits and eventual paralysis. Based on the patients imaging, physical exam, and the rapid progression and disabling nature of their symptoms, at this time I recommend surgery in the form of a: Revision L4-pelvis decompression and fusion. I discussed the risk and benefits of this procedure at length with Mr. Tarango. The patient agreed to considered pursuing the procedure abovementioned. Prior to surgery, she should follow up with her PCP (Cardio, ID, IM etc) for clearance. Questions were invited and answered, and the patient wishes to proceed as outlined below. Currently, I am recommendin. Revision L4-pelvis decompression and fusion Description of Procedure: L4-PELVIS, REVISION open Decompression and fusion (savana) The patient was seen and examined in the preoperative area. All preoperative protocols were followed. Informed consent was obtained, risks and benefits of the procedure were discussed at length. Risks including bleeding infection damage to the surrounding tissue and risk of reoperation were discussed with the patient. Risk of anesthesia up to and including was discussed with the patient. These are outlined in the risk review. They were willing to accept these risks and all the risks of surgery. The patient was given a weight-based dose of antibiotics in the form of 2 g Ancef. The patient was seen and evaluat ed by the anesthesia team who deemed them fit for surgery. The site was marked, the patient was willing to proceed with the procedure. The patient was transferred to the operative suite by the Department of anesthesia. They were then drifted off to sleep by the department anesthesia and GETA was performed. The patient tolerated this well. Rosa catheter was placed by nursing staff, a-traumatically. Once confirmation of lines and ventilation the patient was transferred to a prone Micah table very carefully. All bony prominences including wrists, elbows, axilla, chest, hips, and thighs, and feet were padded very well. Special attention was paid to the genitalia, and these were padded accordingly. SCDs were placed on bilateral lower extremities and were connected. Arms were well padded and placed on arm boards up and out in the 90/90 position. Once in position, again we confirmed good ventilation capabilities and that lines were running appropriately. The patients Lumbar spine was then exposed. 1010s were placed outlining the incision site. Standard alcohol was used to clean the incision site and allowed to dry. C-arm was used to needle localize the pedicles at L4-PELVIS and bio-eulogio the patient and confirm level for incision which was marked with a skin marker. Operative briefing was performed with all teams and everyone in agreement to proceed. The patient was then prepped and draped in a normal sterile fashion. Timeout was then performed, and all parties agreed with the procedure to be performed. Midline skin incision was made over the previously bio-marked area and previous incision line; dissection taken down over the SP of L3-pelvis. L4-S1 was taken out over facet joints and TPs and a penfield 4 used to eulogio the L4 pedicle. Lateral image used to confirm levels. Old hardware at L5-S1 was then investigated and the fusion was explored in this area. There was loosening of the S1 screws bilatearlly and of the L5 screw on the left. These were then r emoved without issues. There was good scare, but poor PL bone formation at L5- S1. Cages were stable at this time. After exploration and removal of this hardware we proceeded to placement of new screws with Navigation. Once confirmed, screws were proceeded to be placed b/l at pedicles from L4-S1 using Abril Navigation. An SP clamp was used, 3D C arm spin obtained and confirmed to be accurate. Once this was confirmed screws were placed using a navigated rissa, navigated awl-tap and navigated light truck driver. Once screws were placed they were confirmed to be in good position using AP and Lateral fluoroscopy. Bilateral pelvic screws were then placed using the same technique with Abril navigation. These screws were placed and confirmed in the S2Ai confirmation. We then performed b/l SIJ fusion using Abril SIJ screws in a modified S2Ai trajectory. These were placed caudal to the pelvic screws to catch the remaining SIJ needed for fusion purposes. The SIJ was decorticated with high speed rissa. The screws were placed and checked on AP, Inlet, Outlet and Lateral and confirmed across the joint and in good position. This was done for foundation to large fusion, along with poor S1 purchaced achieved previously with the pseudoarthrosis. The wound was then irrigated. Screws were tested and all tested above 20 mA. We then proceeded to decompression and cage placement. Attention was then turned to interbody fusion at L4-5. Bilateral laminectomy, complete facetectomy and foraminotomy performed at L4-5 using high speed rissa and Kerrison rongeur. The ligamentum was removed and the dural sac decompressed. Exiting and traversing roots visualized and decompressed. Neural elements were then protected, and disc space accessed with an osteotome. Sequential shaving then done under lateral imaging and complete discectomy performed using saroj, pituitary and curette. Once good bleeding endplates accomplished and good height methodist with trials, a combination of autograft, allograft and synthetic placed anterior in the disc space. The cage was then selected and impacted into place under lateral imaging. The cage was then expanded restoring height, lordosis and alignment. The cage was backfilled with bone graft through a funnel. The grain trimmer was removed and the area inspected. Good cage placement, stable cage and no injuries. Area was irrigated copiously, and meticulous hemostasis achieved. Attention was then drawn to redecompression of elements at L5-S1. Attention was then turned to decompression at L5-S1. Scar tissue was removed from L5-S1 region for decompression again of the thecal sac. There were no injuries. There was scar all about the roots which was cleared as much as possible without injury to the roots. Bony overgrowth on the right side was removed with kerrison. There was good decompression now in the area with new mobilization of roots and sac. Area was irrigated copiously, and meticulous hemostasis achieved. The wound and disc spaces were irrigated and meticulous hemostasis achieved. Rods were then sized and selected and placed into Pelvic screws b/l. Set screws locked these in place and then sequentially reduced into L4, L5 and S1 for alignment methodist of height, lordosis and translation. This was accomplished. Set screws were then all placed and final tightened. A cross link was selected and placed and final tightened. TPs were then decorticated with a high speed rissa. The wound was irrigated with 3L Ancef irrigation, 3L gentamicin irrigation and 3L NSS. Surgicel was placed over the dura. Autograft and MagnatOs then placed in the posterolateral gutters and impacted into place. Deep drain placed and secured to the skin. Final images confirmed good placement of hardware and good reduction of listhesis as well as methodist of height and lordosis. Vancomycin powder 2 g placed in wound. Fascia was then closed with #1 PDS and #1 stratafix. Deep subq closed with 0 Vicryl. Superficial subq closed with 2-0 Vicryl and skin with gilmar. Wound edges approximated very well. Wound was then cleaned with alcohol and dried. Wounds dressed with Optifoam dressings. The patient was then transferred off the table back to their hospital bed a- traumatically. They were extubated by the department of anesthesia. They were then transferred to PACU in stable condition having tolerated the procedure with no complications.
[2023-02-01] MEDS: GABAPENTIN 300 MG CAP PO SCH ×2 (18:48→20:45)
[2023-02-01] MEDS: ACETAMINOPHEN TAB 325 MG TAB PO SCH ×2 (18:48→22:26)
[2023-02-01] MEDS: CYCLOBENZAPRINE 5 MG TAB PO PRN (22:26)
[2023-02-02] MEDS: HYDROmorphone 1 MG/ML 1 ML SYRINGE IVP PRN ×5 (01:23→22:58)
[2023-02-02] MEDS: CYCLOBENZAPRINE 5 MG TAB PO PRN (05:27)
[2023-02-02] MEDS: ACETAMINOPHEN TAB 325 MG TAB PO SCH ×3 (05:27→16:45)
--- NOTE | 2023-02-02 07:53 | CT ---
EXAMINATION TYPE: CT lumbar spine wo con CT DLP: 1009.2 mGycm, Automated exposure control for dose reduction was used. DATE OF EXAM: 02/01/2023 11:08 PM COMPARISON: 12/12/2020.. CLINICAL INDICATION:Male, 52 years old with history of s/p revision L4-pelvis decompr fusion; TECHNIQUE: Multiple axial images were obtained from the midportion of T11 through the sacroiliac windy nts. Soft tissue and bone windows in coronal and sagittal planes were obtained and reviewed. Contrast used: mL of , none. Oral contrast used: none. FINDINGS: Postsurgical changes to the lumbar spine with fixation hardware at L4, L5 and S1. Discectomy at L4-L5 and L5-S1. Bilateral sacroiliac joint screws are present. Hardware limits evaluation at these levels . Hardware appears intact. No evidence of fracture. Postsurgical changes in the soft tissues with foci of gas present. Posterior back skin gilmar are p resent. Rosa catheter is in place. IMPRESSION: Postsurgical changes without evidence of immediate post operative complication.
[2023-02-02 08:36] LABS: Basophils # (A) 0.03 X 10*3/uL (0.00-0.10); Basophils % (A) 0.2 %; Eosinophils # (A) 0.01 X 10*3/uL (0.04-0.35); Eosinophils % (A) 0.1 %; HCT 35.7 % (39.6-50.0); HGB 12.2 g/dL (13.0-17.0); Lymphocytes # (A) 2.61 X 10*3/uL (0.90-5.00); Lymphocytes % (A) 21.7 %; MCH 31.6 pg (27.0-32.0); MCHC 34.2 g/dL (32.0-37.0); MCV 92.5 FL (80.0-97.0); Mean Platelet Volume 9.4 FL (9.5-12.2); Monocytes # (A) 0.96 X 10*3/uL (0.20-1.00); NRBC Per 100 WBC 0 X 10*3/uL (0.00-0.01); Neutrophils # (A) 8.38 X 10*3/uL (1.80-7.70); Neutrophils % (A) 69.8 %; Platelet Count 247 X 10*3/uL (140-440); RBC 3.86 X 10*6/uL (4.40-5.60); RDW 12.2 % (11.5-14.5); WBC 12.02 X 10*3/uL (4.50-10.00)
[2023-02-02] MEDS: GABAPENTIN 300 MG CAP PO SCH ×3 (08:37→20:45)
[2023-02-02 08:44] LABS: BUN/Creat Ratio 11.27 Ratio (12.00-20.00); Blood Urea Nitrogen 12.4 mg/dL (9.0-27.0); Carbon Dioxide 24.6 mmol/L (21.6-31.8); Chloride 105 mmol/L (96-109); Glucose 98 mg/dL (70-110); Potassium 4.3 mmol/L (3.5-5.5); Sodium 139 mmol/L (135-145)
[2023-02-02 08:45] LABS: Calcium 8.5 mg/dL (8.7-10.3)
--- NOTE | 2023-02-02 08:51 | XR ---
EXAMINATION TYPE: XR chest 1V portable DATE OF EXAM: 02/02/2023 8:46 AM CLINICAL INDICATION:Male, 52 years old with history of shortness of breath; [facility] COMPARISON: Chest radiographs from 04/02/2020 TECHNIQUE: XR chest 1V portable Frontal view of the chest. FINDINGS: Lungs/Pleura: No evidence of focal consolidation or pneumothorax. Blunting of the costophrenic angles is present. Pulmonary vascularity: Pulmonary vascular congestion. Heart/mediastinum: Cardiomediastinal silhouette is enlarged and stable. Musculoskeletal: No acute osseous pathology. Shoulder arthroplasty changes. IMPRESSION: Low lung volumes with a generalized hazy appearance which could represent atelectasis versus pulmonar y edema correlate with serum BNP.
--- NOTE | 2023-02-02 10:13 | P.PN ---
Subjective Progress Note Date: 02/02/23 Principal diagnosis: 1. 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 Lower extremity radiculopathy Patient seen and examined this morning. Patient is resting comfortably in bed. Patient states that his pain is managed on current regimen. Rosa catheter was discontinued this morning, patient is due to void. He states that he has not been up since procedure. Informed patient that physical therapy will be in to work with him today. Patient states he continues with some mild numbness to bilateral lower extremities, this was present prior to procedure. Surgical incision to the lumbar spine, dressing is clean dry and intact. Hemovac is present with 10 mL output overnight. Instructed patient on use of incentive spirometer. Encouraged patient to be up in chair for all meals. LSO brace is present at bedside. No acute concerns at this time. Objective - Vital Signs Vital signs: Vital Signs Temp 99.4 F 02/02/23 03:24 Pulse 98 02/02/23 03:24 Resp 16 02/02/23 03:24 BP 92/55 02/02/23 03:24 Pulse Ox 95 02/02/23 03:24 FiO2 Intake & Output 02/01/23 02/02/23 02/02/23 18:59 06:59 18:59 Intake Total 2802 100 Output Total 600 1360 Balance 2202 -1260 Weight 84.6 kg Intake: IV 2752 Intake, IV Titration 50 100 Amount ceFAZolin 2 gm In Sodium 50 100 Chloride 0.9% 50 ml @ 100 mls/hr IVPB Q8H [facility] Rx#: [id number] Output: Drainage 10 Right Lower Back 10 Urine 300 1350 Estimated Blood Loss 300 Other: Voiding Method Indwelling Catheter - Exam Physical Examination General: The patient is awake and alert, in no acute distress Skin: Skin is warm and dry with no obvious rashes or lesions. Surgical incision to the lumbar spine, dressing is clean dry and intact. Hemovac is present with 10 mL output overnight. Eye: Pupils are equal, round and reactive to light, extra-ocular movements are intact; there is normal conjunctiva bilaterally. Neck: The neck is supple, there is no tenderness and ROM intact. Cardiovascular: There is a regular rate and rhythm. No murmur, rub or gallop is appreciated. Respiratory: Respirations are non-labored, breath sounds are equal. Gastrointestinal: Soft, non-distended, non-tender abdomen. Back: There is no tenderness to palpation in the midline, paralumbar, parathoracic or buttocks region. There is no obvious deformity . Musculoskeletal: ROM limited secondary to pain and stiffness from surgical procedure. Muscle strength in all major muscle groups of bilateral upper extremities 5/5, bilateral lower extremities 4/5. Neurological: CN 2-12 intact. There are no obvious motor or sensory deficits. Movement and coordination equal and intact. Sensory exam to light touch intact C5-T1 and intact from L2-S1. Reflexes 2/4 in bilateral upper and lower extremities. Negative Hoffmans, babinski, and clonus signs. Psychiatric: Cooperative, appropriate mood & affect, normal judgment. - Labs CBC & Chem 7: 02/02/23 05:38 02/02/23 05:38 Assessment and Plan Assessment: Postop day 1: [id number] decompression and fusion 1. 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 Lower extremity radiculopathy Plan: -Appreciate transformation consultant and team management. -Activity: Ambulate QID, OOB all meals, up and about, limit lifting bending twisting to less than 5 lbs. Use walker or cane if needed for stability. -Daily PT/OT, increase ambulation strength and balance. -Brace when up and about, not needed in bed or chair -Pain control: Adequate at this time -Meds: reviewed -GI ppx: senna, Miralax -Due to void, monitor for adequate output -DVT PPX: OK to restart Heparin tonight -Hygiene: Shower today. Maintain dressing clean and dry. Meticulous cleaning after BMs away from the incision site -Drains: Maintain for now. Continue to monitor and record output q shift. -Encourage IS 10x/hr -Dispo: Anticipate discharge home tomorrow with homecare *I reviewed and discussed this case with my attending Dr. Holland, whom has reviewed this chart and films and is in agreement with assessment and plan of care as outlined above. I have personally seen and examined the patient, performed the documentation and the assessment and plan as written. Number of minutes spent on the visit: 20m.
[2023-02-02] MEDS ORDERED: IPRATROPIUM-ALBUTEROL 3 ML NEB INHALATION PRN (12:44)
[2023-02-02] MEDS: IPRATROPIUM-ALBUTEROL 3 ML NEB INHALATION SCH ×2 (15:49→21:34)
[2023-02-02] MEDS: SUMAtriptan succinate 50 MG TAB PO PRN (16:03)
[2023-02-02] MEDS ORDERED: HYDROcodone/APAP 7.5-325MG 1 EACH TAB PO PRN (16:16)
[2023-02-02 16:36] LABS: Appearance,Urine Clear (Clear); Bilirubin,Urine Negative (Negative); Blood,Urine Trace (Negative); Color,Urine Light Yellow; Glucose,Urine (UA) Negative (Negative); Ketones,Urine Negative (Negative); Leukocyte Esterase,Urine Moderate (Negative); Nitrite,Urine Negative (Negative); PH, Urine 6.5 (5.0-8.0); Protein,Urine Negative (Negative); RBC,Urine 7 /hpf (0-5); Specific Gravity,Urine 1.018 (1.001-1.035); Urobilinogen,Urine <2.0 mg/dL (<2.0); WBC,Urine 10 /hpf (0-5)
[2023-02-02] MEDS: HYDROcodone/APAP 10-325MG 1 EACH TAB PO PRN ×2 (16:44→20:45)
[2023-02-02] MEDS: HEPARIN SODIUM,PORCINE 5,000 UNIT/ML 1 ML VIAL SQ SCH (20:45)
--- NOTE | 2023-02-03 00:16 | CONS ---
CONSULTATION REASON FOR CONSULTATION: Advice regarding fever and other medical issues, requested by Orthopedics. HISTORY OF PRESENT ILLNESS: This is a 52-year-old gentleman with a past medical history of multiple medical problems, underwent L4-L5 arthrodesis, and other procedures for laminectomy and severe DJD. The patient is running some fever. Fever workup has been ordered including chest x-ray, which was reviewed personally by me showed bilateral atelectasis. Otherwise, white count is elevated to 12.20. There is no history of any headache, loss of consciousness. PAST MEDICAL HISTORY: Reviewed include GERD, DJD. Rest of the history and rest of the chart is also reviewed. HOME MEDICATIONS: Include Lofibra. Rest of medications reviewed. ALLERGIES: Aspirin. FAMILY HISTORY: No history of heart disease or strokes in the family. SOCIAL HISTORY: Previous history of smoking. REVIEW OF SYSTEMS: Fourteen-point review is negative except as mentioned earlier. PHYSICAL EXAMINATION: VITAL SIGNS: Pulse is 112, blood pressure 106/68, respirations 17, T-max 100.1. HEENT: Conjunctivae normal. NECK: No JVD. CARDIOVASCULAR: S1, S2. RESPIRATIONS: Breath sounds diminished at the bases. A few scattered rhonchi. ABDOMEN: Soft, nontender. LEGS: No edema. NERVOUS SYSTEM: No focal deficits. BACK: Status post surgery. LABORATORY DATA: WBC 12.2. ASSESSMENT: 1. Status post lumbar surgery for lumbar degenerative joint disease. 2. Postoperative fever, possibly atelectasis versus pneumonia. 3. Increased WBC. 4. Gastroesophageal reflux disease. 5. Degenerative joint disease. 6. History of back surgery. 7. History of hernia surgery. 8. History of anxiety. RECOMMENDATIONS AND DISCUSSION: I recommend to continue current management and continue symptomatic treatment. Obtain blood cultures, UA with micro. I would recommend serum procalcitonin and course of empiric antibiotics and if the Procardia is normal, antibiotics can be stopped. Otherwise, see orders for further details. Home medications to continue. DVT prophylaxis. Further recommendations to follow. MMODL / IJN: [id number] /
[2023-02-03] MEDS: HYDROcodone/APAP 10-325MG 1 EACH TAB PO PRN (00:45)
[2023-02-03] MEDS: ACETAMINOPHEN TAB 325 MG TAB PO SCH ×4 (00:56→17:37)
[2023-02-03] MEDS: HYDROmorphone 1 MG/ML 1 ML SYRINGE IVP PRN ×2 (04:43→08:21)
[2023-02-03] MEDS: PANTOPRAZOLE 40 MG TABLET PO SCH (06:37)
--- NOTE | 2023-02-03 07:37 | P.PN ---
Subjective Progress Note Date: 02/03/23 Principal diagnosis: 1. 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 Lower extremity radiculopathy Patient seen and examined this morning. Patient is resting comfortably in bed. Patient reports moderate low back pain/pressure with activity. He states he is requiring to use IV dilaudid to manage his pain. Medications will be adjusted. Surgical dressing has been changed with removal of hemovac drain. Incision is well approximated with gilmar intact. No active drainage. Encouraged patient to be up in chair for all meals and to have HOB elevated when in bed. Encourage patient to continue to use IS. Patient has been febrile and urine culture pend ing. Patient denies any chills, nausea/vomiting, or productive cough. LSO brace is present at bedside. No acute concerns at this time. Objective - Vital Signs Vital signs: Vital Signs Temp 99.9 F H 02/03/23 01:02 Pulse 115 H 02/03/23 01:02 Resp 19 02/03/23 01:02 BP 91/56 02/03/23 01:02 Pulse Ox 92 L 02/03/23 01:02 FiO2 Intake & Output 02/02/23 02/03/23 02/03/23 18:59 06:59 18:59 Output Total 945 1250 Balance -945 -1250 Output: Urine 220 1000 Post Void Residual 725 250 Other: Voiding Method Indwelling Catheter # Voids 1 2 - Exam Physical Examination General: The patient is awake and alert, in no acute distress Skin: Skin is warm and dry with no obvious rashes or lesions. Surgical incision to the lumbar spine, incision is well approximated with gilmar intact. New dressing applied. Eye: Pupils are equal, round and reactive to light, extra-ocular movements are intact; there is normal conjunctiva bilaterally. Neck: The neck is supple, there is no tenderness and ROM intact. Cardiovascular: There is a regular rate and rhythm. No murmur, rub or gallop is appreciated. Respiratory: Respirations are non-labored, breath sounds are equal. Gastrointestinal: Soft, non-distended, non-tender abdomen. Back: There is no tenderness to palpation in the midline, paralumbar, parathoracic or buttocks region. There is no obvious deformity . Musculoskeletal: ROM limited secondary to pain and stiffness from surgical procedure. Muscle strength in all major muscle groups of bilateral upper extremities 5/5, bilateral lower extremities 4/5. Neurological: CN 2-12 intact. There are no obvious motor or sensory deficits. Movement and coordination equal and intact. Sensory exam to light touch intact C5-T1 and intact from L2-S1. Reflexes 2/4 in bilateral upper and lower extremities. Negative Hoffmans, babinski, and clonus signs. Psychiatric: Cooperative, appropriate mood & affect, normal judgment. - Labs CBC & Chem 7: 02/02/23 05:38 02/02/23 05:38 Labs: Abnormal Lab Results - Last 24 Hours (Table) 02/02/23 02/02/23 02/02/23 Range/Units 05:38 05:38 12:47 WBC 12.02 H (4.50-10.00) X 10*3/uL RBC 3.86 L (4.40-5.60) X 10*6/uL Hgb 12.2 L (13.0-17.0) g/dL Hct 35.7 L (39.6-50.0) % MPV 9.4 L (9.5-12.2) FL Neutrophils # 8.38 H (1.80-7.70) X 10*3/uL Eosinophils # 0.01 L (0.04-0.35) X 10*3/uL BUN/Creatinine Ratio 11.27 L (12.00-20.00) Ratio Calcium 8.5 L (8.7-10.3) mg/dL Procalcitonin 0.41 H (0.02-0.09) ng/mL Urine Blood (Negative) Ur Leukocyte Esterase (Negative) Urine RBC (0-5) /hpf Urine WBC (0-5) /hpf 02/02/23 Range/Units 15:55 WBC (4.50-10.00) X 10*3/uL RBC (4.40-5.60) X 10*6/uL Hgb (13.0-17.0) g/dL Hct (39.6-50.0) % MPV (9.5-12.2) FL Neutrophils # (1.80-7.70) X 10*3/uL Eosinophils # (0.04-0.35) X 10*3/uL BUN/Creatinine Ratio (12.00-20.00) Ratio Calcium (8.7-10.3) mg/dL Procalcitonin (0.02-0.09) ng/mL Urine Blood Trace H (Negative) Ur Leukocyte Esterase Moderate H (Negative) Urine RBC 7 H (0-5) /hpf Urine WBC 10 H (0-5) /hpf Assessment and Plan Assessment: Postop day 2: [id number] decompression and fusion 1. 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 Lower extremity radiculopathy Plan: -Appreciate building consultant and team management. -Urine cultures pending; patient on empiric antibiotic treatment. -Activity: Ambulate QID, OOB all meals, up and about, limit lifting bending twisting to less than 5 lbs. Use walker or cane if needed for stability. -Daily PT/OT, increase ambulation strength and balance. -Brace when up and about, not needed in bed or chair -Pain control: Adequate at this time -Meds: reviewed -GI ppx: senna, Miralax -DVT PPX: Heparin -Hygiene: Shower today. Maintain dressing clean and dry. Meticulous cleaning after BMs away from the incision site -Encourage IS 10x/hr -Dispo: Anticipate discharge home tomorrow with homecare *I reviewed and discussed this case with my attending Dr. Holland, whom has reviewed this chart and films and is in agreement with assessment and plan of care as outlined above. I have personally seen and examined the patient, performed the documentation and the assessment and plan as written. Number of minutes spent on the visit: 20m.
[2023-02-03] MEDS: HEPARIN SODIUM,PORCINE 5,000 UNIT/ML 1 ML VIAL SQ SCH ×2 (08:19→21:30)
[2023-02-03] MEDS: SENNOSIDES-DOCUSATE SODIUM 1 EACH TAB PO SCH (08:20)
[2023-02-03] MEDS: GABAPENTIN 300 MG CAP PO SCH ×3 (08:20→21:30)
[2023-02-03] MEDS: FENOFIBRATE 160 MG TAB PO SCH (08:21)
[2023-02-03] MEDS: SUMAtriptan succinate 50 MG TAB PO PRN ×2 (08:36→15:41)
[2023-02-03] MEDS: IPRATROPIUM-ALBUTEROL 3 ML NEB INHALATION SCH ×3 (08:39→18:16)
--- NOTE | 2023-02-03 09:49 | CDI ---
Documentation Clarification Form Date: 02/03/2023 09:03:47 AM From: Leyda Alonso RN, CCDS Phone: [phone] Admit Date: 02/01/2023 09:03:00 AM Patient Name: Wiliam Tarango Visit Number: [id number] Discharge Date: ATTENTION: The Clinical Documentation Specialists (CDI) and [facility] Coding Staff appreciate your assistance in clarifying documentation. Please respond to the clarification below the line at the bottom and electronically sign. The CDI & [facility] Coding staff will review the response and follow-up if needed. Please note: Queries are made part of the Legal Health Record. If you have any questions, please contact the author of this message via ITS. Dr. Salma Raines Postoperative fever is documented in the consult on 02/02/23 and the patient had L4-pelvis decompression and fusion. Additional clarification is requested regarding the relationship, if any, that exists between the diagnosis and the procedure. 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 Lower extremity radiculopathy, Spinal stenosis, lumbar region with neurogenic claudication Post-Operative Diagnosis: Same Procedure performed: L4-pelvis decompression and fusion. History/Risk Factors: GERD/Reflux, Osteoarthritis (OA) Clinical Indicators: 52-year-old male with history of L4-L5 arthrodesis, severe DJD. He is post L4-pelvis decompression and fusion on 02/01/23. 02/02 VS (14:00) 114/75 125 17 101.1 1791% RA (16:00) 147/88 124 99.5 93% RA !04/05 CXR: Low lung volumes with a generalized hazy appearance which could represent atelectasis versus pulmonary edema correlate with serum BNP. 02/02 Labs: WBC 12.02, Neutrophils 8.38, Procalcitonin 0.41 02/02 UA: Ur Leukocyte Esterase Moderate Treatment: Rocephin 1 GM IVPB Q 24 HRS 02/02 -02/03 Encourage IS 10X /HR Ambulate QID, Out of bed all meals, Daily PT/OT, Increase ambulation strength and balance. What relationship, if any, exists between the diagnosis of postoperative fever possibly atelectasis and the procedure: [ x] Atelectasis is a complication of surgical procedure. [ ] Atelectasis is an expected outcome of the surgical procedure. [ ] Atelectasis is related to patients co-morbid condition(s) of [insert co- morbid dxs] & not a complication of the procedure. [ ] Other please specify ____ [ ] Unable to determine (Template Last Revised: April 2020) MTDD
[2023-02-03] MEDS: SODIUM CHLORIDE 0.9% 1,000 ML IV SCH ×2 (10:10→23:50)
[2023-02-03 11:00] LABS: Basophils # (A) 0.04 X 10*3/uL (0.00-0.10); Basophils % (A) 0.3 %; Eosinophils # (A) 0.06 X 10*3/uL (0.04-0.35); Eosinophils % (A) 0.5 %; HCT 35.9 % (39.6-50.0); HGB 11.9 g/dL (13.0-17.0); Lymphocytes # (A) 1.77 X 10*3/uL (0.90-5.00); Lymphocytes % (A) 14.5 %; MCH 31.9 pg (27.0-32.0); MCHC 33.1 g/dL (32.0-37.0); MCV 96.2 FL (80.0-97.0); Mean Platelet Volume 9.5 FL (9.5-12.2); Monocytes # (A) 1.14 X 10*3/uL (0.20-1.00); Monocytes % (A) 9.3 %; NRBC Per 100 WBC 0 X 10*3/uL (0.00-0.01); Neutrophils # (A) 9.18 X 10*3/uL (1.80-7.70); Platelet Count 227 X 10*3/uL (140-440); RBC 3.73 X 10*6/uL (4.40-5.60); RDW 12.1 % (11.5-14.5); WBC 12.24 X 10*3/uL (4.50-10.00)
[2023-02-03 11:11] LABS: Blood Urea Nitrogen 9.1 mg/dL (9.0-27.0); Chloride 104 mmol/L (96-109); Glucose 113 mg/dL (70-110); Potassium 3.9 mmol/L (3.5-5.5); Sodium 138 mmol/L (135-145)
[2023-02-03 11:12] LABS: Calcium 8.7 mg/dL (8.7-10.3); Carbon Dioxide 27.9 mmol/L (21.6-31.8)
[2023-02-03] MEDS: oxyCODONE-APAP 5-325MG 1 EACH TAB PO PRN ×3 (13:19→21:30)
[2023-02-03] MEDS ORDERED: DEXAMETHASONE SOD PHOSPHATE 10 MG/ML 1 ML VIAL IVP STA (15:00)
[2023-02-03] MEDS: CYCLOBENZAPRINE 5 MG TAB PO SCH ×2 (15:44→21:30)
--- NOTE | 2023-02-03 16:10 | P.PN ---
Subjective Progress Note Date: 02/03/23 This is a 52 year old male postoperative day #2 revision L4-pelvis decompression and fusion. He is monitored on the medical floor, no acute complaints. He continues to have dry cough, no sputum production. Doesn't feel febrile. He is noted by nursing to have fever T-Max overnight 99.9. He is being seen in medical consultation for sepsis work up. Remains on empiric antibiotic coverage with IV ceftriaxone. The work up so far consists of mildly elevated procalcitonin level 0.41. Urinalysis showing moderate leukocyte esterase, trace blood, 10 WBC and 7 RBC. Not overly suggestive of infection. Chest xray showing atelectasis versus pulmonary edema. White blood cell count remains slightly elevated 12.24. Viral panel negative for covid, RSV, influenza. Chest xray reviewed appears more like atelectasis and patient has been encouraged to continue with incentive spirometer 10 x an hour. Blood cultures are taken and pending. Review of Systems Constitutional: Denied any fatigue denied any fever. Cardio vascular: denied any chest pain, palpitations Gastrointestinal: denied any nausea, vomiting, diarrhea Pulmonary: Denied any shortness of breath cough Neurologic denied any new focal deficits All inpatient medications were reviewed and appropriate changes in these medications as dictated in the interval history and assessment and plan. PHYSICAL EXAMINATION: GENERAL: The patient is alert and oriented x3, not in any acute distress. Well developed, well nourished. HEENT: Pupils are round and equally reacting to light. EOMI. No scleral icterus. No conjunctival pallor. Normocephalic, atraumatic. No pharyngeal erythema. No thyromegaly. CARDIOVASCULAR: S1 and S2 present. No murmurs, rubs, or gallops. PULMONARY: Chest is clear to auscultation, no wheezing or crackles. ABDOMEN: Soft, nontender, nondistended, normoactive bowel sounds. No palpable organomegaly. MUSCULOSKELETAL: No joint swelling or deformity. EXTREMITIES: No cyanosis, clubbing, or pedal edema. NEUROLOGICAL: Gross neurological examination did not reveal any focal deficits. SKIN: No rashes. Assessment and Plan -Fever likely postoperative atelectasis patient encouraged to increase activity level and to continue with incentive spirometer 10 x an hour while awake. Sepsis work up in progress blood cultures are pending. No clear source of infection at this time, procalcitonin is mildly elevated and patient will continue on IV ceftriaxone. -Degenerative disc disease postoperative day #2 revision L4-pelvis decompression and fusion on supportive care -Leukocytosis, likely reactive will monitor labs and repeat CBC tomorrow -Sinus tachycardia recommend EKG and telemetry monitoring, Patient will be hydrated and monitor for improvement. Tachycardia may be due to underlying infection/fever. -Gastroesophageal reflux disease -Hx of migraines -Smoking history -Marijuana use GI prophylaxis: Continue on protonix DVT prophylaxis: Heparin subcu Full Code The impression and plan of care has been dictated by Corie Pineda, Nurse Practitioner as directed. Dr. Herberth MD I have performed a history and physical examination and medical decision making of this patient, discussed the same with the dictator, and agree with the dictators assessment and plan as written, documented as a scribe. Based on total visit time, I have performed more than 50% of this visit. Objective - Vital Signs Vital signs: Vital Signs Temp 98.4 F 02/03/23 08:00 Pulse 121 H 02/03/23 08:00 Resp 18 02/03/23 08:00 BP 124/81 02/03/23 08:00 Pulse Ox 95 02/03/23 08:00 FiO2 Intake & Output 02/02/23 02/03/23 02/03/23 18:59 06:59 18:59 Output Total 945 1250 300 Balance -945 -1250 -300 Output: Urine 220 1000 300 Post Void Residual 725 250 Other: Voiding Method Indwelling Catheter # Voids 1 2 - Labs CBC & Chem 7: 02/03/23 05:54 02/03/23 05:54 Labs: Abnormal Lab Results - Last 24 Hours (Table) 02/02/23 02/02/23 Range/Units 12:47 15:55 Procalcitonin 0.41 H (0.02-0.09) ng/mL Urine Blood Trace H (Negative) Ur Leukocyte Esterase Moderate H (Negative) Urine RBC 7 H (0-5) /hpf Urine WBC 10 H (0-5) /hpf Assessment and Plan Time with Patient: Less than 30
[2023-02-04] MEDS: ACETAMINOPHEN TAB 325 MG TAB PO SCH ×3 (00:40→12:00)
[2023-02-04 02:42] VITALS: RESP 18
[2023-02-04] MEDS: PANTOPRAZOLE 40 MG TABLET PO SCH (06:02)
[2023-02-04] MEDS: oxyCODONE-APAP 5-325MG 1 EACH TAB PO PRN ×2 (06:03→15:00)
[2023-02-04 08:39] LABS: Basophils # (A) 0.02 X 10*3/uL (0.00-0.10); Basophils % (A) 0.1 %; Eosinophils # (A) 0 X 10*3/uL (0.04-0.35); Eosinophils % (A) 0 %; HCT 37.7 % (39.6-50.0); HGB 12.8 g/dL (13.0-17.0); Lymphocytes # (A) 1.02 X 10*3/uL (0.90-5.00); Lymphocytes % (A) 6.6 %; MCH 32.1 pg (27.0-32.0); MCV 94.5 FL (80.0-97.0); Mean Platelet Volume 9.7 FL (9.5-12.2); Monocytes # (A) 0.67 X 10*3/uL (0.20-1.00); Monocytes % (A) 4.3 %; NRBC Per 100 WBC 0 X 10*3/uL (0.00-0.01); Neutrophils # (A) 13.77 X 10*3/uL (1.80-7.70); Neutrophils % (A) 88.4 %; Platelet Count 268 X 10*3/uL (140-440); RBC 3.99 X 10*6/uL (4.40-5.60); RDW 12.1 % (11.5-14.5); WBC 15.57 X 10*3/uL (4.50-10.00)
[2023-02-04] MEDS: IPRATROPIUM-ALBUTEROL 3 ML NEB INHALATION SCH ×2 (08:55→12:01)
[2023-02-04] MEDS: SENNOSIDES-DOCUSATE SODIUM 1 EACH TAB PO SCH (09:11)
[2023-02-04] MEDS: HEPARIN SODIUM,PORCINE 5,000 UNIT/ML 1 ML VIAL SQ SCH (09:11)
[2023-02-04] MEDS: GABAPENTIN 300 MG CAP PO SCH ×2 (09:12→15:00)
[2023-02-04] MEDS: CYCLOBENZAPRINE 5 MG TAB PO SCH ×2 (09:12→15:00)
[2023-02-04] MEDS: FENOFIBRATE 160 MG TAB PO SCH (09:12)
--- NOTE | 2023-02-04 09:33 | P.PN ---
Subjective Progress Note Date: 02/04/23 Principal diagnosis: 1. 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 Lower extremity radiculopathy Patient seen and examined this morning. Patient is sitting at bedside eating breakfast, tolerating well. Patient reports that his pain is managed on current regimen. He states he has been ambulatory within room with a walker. Patient states that overall he is feeling well. Surgical incision to the lumbar spine, edges are approximated with gilmar intact small amount of sanguinous drainage noted on dressing. New dressing has been applied. LSO brace is at bedside. Encouraged patient to utilize incentive spirometer and to increase activity as tolerated. Patient verbalizes understanding. No acute concerns at this time patient is cleared from orthopedic standpoint for discharge when medically stable. Objective - Vital Signs Vital signs: Vital Signs Temp 98.0 F 02/04/23 01:20 Pulse 97 02/04/23 01:20 Resp 18 02/04/23 01:20 BP 118/81 02/04/23 01:20 Pulse Ox 96 02/04/23 01:20 FiO2 Intake & Output 02/03/23 02/04/23 02/04/23 18:59 06:59 18:59 Output Total 1000 Balance -1000 Output: Urine 1000 Other: Voiding Method Toilet Toilet # Voids 3 - Exam Physical Examination General: The patient is awake and alert, in no acute distress Skin: Skin is warm and dry with no obvious rashes or lesions. Surgical incision to the lumbar spine, incision is well approximated with gilmar intact. New dressing applied. Eye: Pupils are equal, round and reactive to light, extra-ocular movements are intact; there is normal conjunctiva bilaterally. Neck: The neck is supple, there is no tenderness and ROM intact. Cardiovascular: There is a regular rate and rhythm. No murmur, rub or gallop is appreciated. Respiratory: Respirations are non-labored, breath sounds are equal. Gastrointestinal: Soft, non-distended, non-tender abdomen. Back: There is no tenderness to palpation in the midline, paralumbar, parathoracic or buttocks region. There is no obvious deformity . Musculoskeletal: ROM limited secondary to pain and stiffness from surgical procedure. Muscle strength in all major muscle groups of bilateral upper ext remities 5/5, bilateral lower extremities 4/5. Neurological: CN 2-12 intact. There are no obvious motor or sensory deficits. Movement and coordination equal and intact. Sensory exam to light touch intact C5-T1 and intact from L2-S1. Reflexes 2/4 in bilateral upper and lower extremities. Negative Hoffmans, babinski, and clonus signs. Psychiatric: Cooperative, appropriate mood & affect, normal judgment. - Labs CBC & Chem 7: 02/04/23 06:06 02/03/23 05:54 Labs: Abnormal Lab Results - Last 24 Hours (Table) 02/03/23 02/03/23 Range/Units 05:54 05:54 WBC 12.24 H (4.50-10.00) X 10*3/uL RBC 3.73 L (4.40-5.60) X 10*6/uL Hgb 11.9 L (13.0-17.0) g/dL Hct 35.9 L (39.6-50.0) % Immature Gran # 0.05 H (0.00-0.04) X 10*3/uL Neutrophils # 9.18 H (1.80-7.70) X 10*3/uL Monocytes # 1.14 H (0.20-1.00) X 10*3/uL BUN/Creatinine Ratio 9.10 L (12.00-20.00) Ratio Glucose 113 H (70-110) mg/dL Microbiology - Last 24 Hours (Table) 02/02/23 12:47 Blood Culture - Preliminary Blood Assessment and Plan Assessment: Postop day 3: [id number] decompression and fusion 1. 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 Lower extremity radiculopathy Plan: -Appreciate benefits sales consultant and team management. -Activity: Ambulate QID, OOB all meals, up and about, limit lifting bending twisting to less than 5 lbs. Use walker or cane if needed for stability. -Daily PT/OT, increase ambulation strength and balance. -Brace when up and about, not needed in bed or chair -Pain control: Adequate at this time -Meds: reviewed -GI ppx: senna, Miralax -DVT PPX: Heparin -Hygiene: Shower today. Maintain dressing clean and dry. Meticulous cleaning after BMs away from the incision site -Encourage IS 10x/hr -Dispo: Patient is cleared from orthopedic standpoint for discharge when medically stable *I reviewed and discussed this case with my attending Dr. Holland, whom has reviewed this chart and films and is in agreement with assessment and plan of care as outlined above. I have personally seen and examined the patient, performed the documentation and the assessment and plan as written. Number of minutes spent on the visit: 20m.
[2023-02-04] MEDS: SODIUM CHLORIDE 0.9% 1,000 ML IV SCH (12:30)
--- NOTE | 2023-02-04 13:31 | P.DS ---
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 They underwent appropriate preoperative care and were willing to undergo the intended procedure. They underwent a successful revision [id number] decompression and fusion, were recovered appropriately and sent to the floor. While on the floor they worked with physical therapy, occupational therapy and nursing to enhance their recovery experience. Their pain was well controlled through their stay and they were started on appropriate medications, DVT ppx modalities, activity and dietary needs. Daily labs were monitored closely, and transfusions were only used when necessary. Medicine as well as other consulting services have made their input and have helped with our team approach and multidisciplinary care. PT milestones have been met and passed and they have made the recommendation of home for this patient and treating providers agree with this care path. The patient will be discharged home with appropriate medications, instructions and follow-up information and in stable condition. Patient Condition at Discharge: Good Plan - Discharge Summary Discharge Rx Participant: Yes New Discharge Prescriptions: New Gabapentin 300 mg PO TID #90 cap oxyCODONE-APAP 5-325MG [Percocet 5-325 mg] 1 tab PO Q4HR PRN #42 tab PRN Reason: Pain Cyclobenzaprine [Flexeril] 5 mg PO TID #40 tablet cefaDROXiL [Duricef] 500 mg PO Q12HR #10 cap No Action SUMAtriptan succinate [Imitrex] 50 mg PO BID PRN PRN Reason: Migraine Headache Pantoprazole Sodium [Protonix] 40 mg PO QAM Fenofibrate [Lofibra] 160 mg PO DAILY Discharge Medication List SUMAtriptan succinate [Imitrex] 50 mg PO BID PRN 12/12/17 [History] Pantoprazole Sodium [Protonix] 40 mg PO QAM 04/16/21 [History] Fenofibrate [Lofibra] 160 mg PO DAILY 02/01/23 [History] Cyclobenzaprine [Flexeril] 5 mg PO TID #40 tablet 02/04/23 [Rx] Gabapentin 300 mg PO TID #90 cap 02/04/23 [Rx] cefaDROXiL [Duricef] 500 mg PO Q12HR #10 cap 02/04/23 [Rx] oxyCODONE-APAP 5-325MG [Percocet 5-325 mg] 1 tab PO Q4HR PRN #42 tab 02/04/23 [Rx] Follow up Appointment(s)/Referral(s): Hilario Holland DO [Doctor of Osteopathic Medicine] - 2 Weeks Reginald Wesley DO [Primary Care Provider] - 1 Week Activity/Diet/Wound Care/Special Instructions: Spine Discharge and Recovery Instructions Date of Surgery: 02/01/2023 Diagnosis: Adjacent segment disease Procedure: Revision of [id number] decompression and fusion Medications: See medication list All medication refills should be obtained through your primary care doctor or your clinic spine surgeon. Please discuss prescription refills at your follow up appointment. Do not call the hospital for medication refills. Activity: Encourage ambulation with assist of walker, Up and about 6-8x daily PT/OT daily work on balance, strength and mobility Up in chair with all meals Shower daily Brace: Use brace when up and about, do not wear in bed or shower Dressing: Leave your dressing in place for a total of 3 days post operatively. Then you may remove your dressing and leave open to air. Keep the area clean and if not able to keep area clean, then cover with sterile gauze and tape. Showering: You may shower 3 days after your procedure allowing soap and water to run over incision. Do not scrub. Do not soak. Blot dry. Follow up: Please confirm a follow up appointment with your surgeon 2 weeks post operatively. Please make an appointment to follow up with your PCP in 1-2 weeks after surgery for evaluation 3 phase, 3-week plan POST OP WEEKS 1-3 1. Lifting/carrying/pushing/pulling limited to less than 5 pounds. 2. Do not sit for longer than 15 minutes at one time. Get up and walk around. Prolonged sitting is NOT advised. If you lay down, see if you can tolerate laying down on you front (belly side) 3. Walk for periods of 15 minutes = 1 mile but no longer; do it multiple times times each day. 4. Ice your low back after activity. POST OP WEEKS 3-6 1. Lifting limited to less than 20 pounds. 2. Do not sit for longer than 30 minutes at a time. Frequently change positions. Use a sit-to stand workstation or take frequent breaks from sitting if you have returned to work. 3. Walk for 30 minutes each day. If possible, do these three or more times a day POST OP WEEKS 6+ At your 6-week appointment we will give you a physical therapy referral to focus on a core stabilization and strengthening program. You should also work on leg & buttock strengthening, hamstring & quadriceps stretching, and continue a low impact aerobic activity program such as swimming, walking, or riding a stationary bicycle. During the initial 6 weeks after your surgery, you are at the highest risk of re-injuring your spine. You should generally avoid BLTs (bending, lifting and twisting combination motions) and follow the above guidelines to reduce the chance of reinjury. You can anticipate post op appointments in our office at approximately 3 weeks and 6 weeks after your surgery. INCISION CARE: If your incision is not draining you do NOT need to cover it with a dressing. Keep your incision clean, dry and intact. In most cases, we apply skin glue, gilmar or sutures to the incision at the time of surgery. This will be like a crust or have the appearance of a scab and will fall off in time on its own. The stitches or gilmar need to be removed at 3 weeks post op appointment. You may begin to shower 3 days after surgery (this allows the glue to modi well). However, please avoid scrubbing the incision site or peeling off any of the skin glue. This will ensure optimal healing of your incision. Also, during this time avoid soaking the incision area in water - this includes swimming pools, hot tubs or baths. No ointments, lotions or oils on the incision until your surgeon allows. Leave gilmar, sutures or glue in place. Neurological dysfunction that comes on suddenly can also be a sign of a stroke. Below some common symptoms of a stroke are listed: B - balance difficulty such as sudden onset walking or leaning to one side - NEW E - eye problem such as sudden double vision or trouble seeing on one side - NEW F - Facial weakness or numbness on one side - NEW A - Arm or leg weakness or numbness on one side - NEW S - Slurred speech or difficulty with word finding - NEW T - Time is BRAIN! Call 911 as soon as you recognize these symptoms Diet: Consume a regular diet rich in vegetables and lean protein such as chicken or fish. You should consume in a ratio of approximately 20% fats|40% carbo hydrates|40%protein. Vegetables, sweet potatoes, brown rice or quinoa are examples of good carbohydrates. Chips, white bread, cookies and sweets/sugar are examples of bad carbohydrates. Limit your bad carbs, go wild with good carbs. "Life's Simple 7" Guidelines as per [place] [employer] These will help you reclaim your life after surgery and carpet or rug layer helper in your recovery, keeping in mind your restrictions. (1) Get Active. Physical activity can help people lose weight, control high blood pressure and cholesterol, feel emotionally better, and sleep better. (2) Control Cholesterol. Avoid a diet high in saturated fat, trans fat, & cholesterol. Limit whole milk & cream, ice cream, butter, egg yolks, processed meats (like sausage and hot dogs), and fatty meats. Choose healthy foods that are low in saturated fat, trans fat and cholesterol which include: Fruits and vegetables, fiber rich grain products (like whole grain pasta and brown rice), lean meat such as chicken, fish, nuts, seeds, and legumes. (3) Eat Better. Eat small portions. Shop at the grocery with a list and do not stray from it. Tips for a healthy diet include: Limit sodium intake to less than 1500mg daily, avoid prepackaged, processed, and fast foods, choose a diet rich in fruits, vegetables, and whole grain, high fiber foods, and limit saturated & cholesterol in your diet. (4) Manage Blood Pressure. If you have high blood pressure, you should have a cuff at home so that you can check your blood pressure regularly. Be sure you have a good cuff. An arm one is generally better than a wrist one. Bring the cuff to a doctor's appointment to validate that the measurements that your cuff are taking are accurate. Take your blood pressure twice daily when you are sitting down and relaxing. Record the numbers in a log and bring this log with you to your doctors' appointments. (5) Lose Weight if your BMI is above 25. A healthy BMI is between 19-25. To calculate Your BMI, you may use a Standard BMI Calculator on the NIH BMI website: <www.nhlbi.nih.gov/guidelines/obesity/BMI/bmicalc.htm>. Weigh oneself daily. If you are overweight, set a goal to lose weight. A pound a week loss if needed is a good target. (6) Reduce Blood Sugar. Limit foods and liquids with "added sugars." (Added sugars include sucrose, fructose, glucose, maltose, dextrose, high fructose corn syrup, corn syrup, concentrated fruit juice and honey). (7) Stop Smoking. If you smoke, quitting smoking is one of the best things that you can do for your health. Smoking increases your risk of heart attack, stroke, and peripheral vascular disease, which is a build-up of plaque in your arteries. Please discard all the cigarettes and lighters in your house. Have a plan for what you will do when you have the urge to smoke. Direct and second- hand smoke shortens your life as well as the lives of your family, friends and others around you. For your health and the health of those around you, please consider quitting! Proper Bending Body Mechanics: Maintain a wide stance with one foot slightly in front of the other. Keep your back straight. Bend utilizing the strength in your hips and knees. Do not bend at the waist. Maintain the lifted object at your waist-level close to your body. Avoid lifting weight that causes immediately pain or pain anywhere in the body afterwards. Smoking/Nicotine If there was ever one thing that you could do to increase your overall health, decrease your risk of cardiovascular problems by about 39% the second you make the choice, it is to STOP SMOKING. Your body's most instant gratification is the second you stop smoking. We have all heard the studies, read the articles but it is true, smoking is extremely bad for your overall health, and moreover it is detrimental to your bone health. Nicotine, IN ANY FORM, kills bone cells, prevents your body from healing fractures, and significantly prolongs healing after surgery. In spine surgery specifically, it increases your risk of not healing your bones to create a fusion and increases your risk of having a revision surgery due to this up to 60%. I know it is hard. I know it feels impossible. But there are ways. Take control of your life. We are here to help you through it. And when you are ready, ask us and we can direct you to help if you desire. Use the START Plan to Quit Smoking (please visit the Helpguide.org website listed below for more information): S = Set a quit date. Choose a date within the next 2 weeks, so you have enough time to prepare without losing your motivation to quit. If you mainly smoke at work, quit on the weekend, so you have a few days to adjust to the change. T = Tell family, friends, and co-workers that you plan to quit. Let your friends and family in on your plan to quit smoking and tell them you need their support and encouragement to stop. Look for a quit stanton who wants to stop smoking as well. You can help each other get through the rough times. A = Anticipate and plan for the challenges you'll face while quitting. Most people who begin smoking again do so within the first 3 months. You can help yourself make it through by preparing ahead for common challenges, such as nicotine withdrawal and cigarette cravings. R = Remove cigarettes and other tobacco products from your home, car, and work. Throw away all your cigarettes (no emergency pack!), lighters, ashtrays, and matches. Wash your clothes and freshen up anything that smells like smoke. Shampoo your car, clean your drapes and carpet, and steam your furniture. T = Talk to your doctor about getting help to quit. Your doctor can prescribe medication to help with withdrawal and suggest other alternatives. If you can't see a doctor, you can get many products over the counter at your local pharmacy or grocery store, including the nicotine patch, nicotine lozenges, and nicotine gum. Resources for Quitting Smoking: <https://www.[place].gov/documents/mdch/Quit_Tob[place]_Resources_for_patients_313480_7.pdf> Supplementation: Take recommended dosages of Vitamin D and Calcium to help fortify your bones and help them to heal. See your health maintenance packet for dosages and recommended levels. DVT/VTE prophylaxis: You will be given compression stockings from the hospital. Wear these daily for the first two weeks after surgery. You may take them off at night. You may be prescribed a medication to help thin your blood. Take this as directed. If you are not prescribed this medication, early and frequent ambulation has been shown to be the best prophylaxis to deep vein thrombosis and sequelae related to this event. Discharge Disposition: HOME SELF-CARE
--- NOTE | 2023-02-04 13:44 | P.PN ---
Subjective Progress Note Date: 02/04/23 This is a 52 year old male postoperative day #2 revision L4-pelvis decompression and fusion. He is monitored on the medical floor, no acute complaints. He continues to have dry cough, no sputum production. Doesn't feel febrile. He is noted by nursing to have fever T-Max overnight 99.9. He is being seen in medical consultation for sepsis work up. Remains on empiric antibiotic coverage with IV ceftriaxone. The work up so far consists of mildly elevated procalcitonin level 0.41. Urinalysis showing moderate leukocyte esterase, trace blood, 10 WBC and 7 RBC. Not overly suggestive of infection. Chest xray showing atelectasis versus pulmonary edema. White blood cell count remains slightly elevated 12.24. Viral panel negative for covid, RSV, influenza. Chest xray reviewed appears more like atelectasis and patient has been encouraged to continue with incentive spirometer 10 x an hour. Blood cultures are taken and pending. 02/04/2023 Patient is evaluated today resting in the chair. He has no shortness of breath no cough. Has some sinus congestion however he states this is his normal. He doesnt feel febrile and his fever has come down to 99 max overnight. He is reaching 2000 on his IS. He states he will continue to use on discharge. He is postoperative day #3 revision L4-pelvis decompression and fusion. White count 15.57 yesterday he did receive a dose of decadron yesterday likely contributing to the increase in white blood cell count today. Influenza, Covid and RSV are negative. His blood culture remains negative so far. Medically he can be discharged home and recommend to see Dr Wesley in the office in 1 to 2 days. Review of Systems Constitutional: Denied any fatigue denied any fever. Cardio vascular: denied any chest pain, palpitations Gastrointestinal: denied any nausea, vomiting, diarrhea Pulmonary: Denied any shortness of breath cough Neurologic denied any new focal deficits All inpatient medications were reviewed and appropriate changes in these medications as dictated in the interval history and assessment and plan. PHYSICAL EXAMINATION: GENERAL: The patient is alert and oriented x3, not in any acute distress. Well developed, well nourished. HEENT: Pupils are round and equally reacting to light. EOMI. No scleral icterus. No conjunctival pallor. Normocephalic, atraumatic. No pharyngeal erythema. No thyromegaly. CARDIOVASCULAR: S1 and S2 present. No murmurs, rubs, or gallops. PULMONARY: Chest is clear to auscultation, no wheezing or crackles. ABDOMEN: Soft, nontender, nondistended, normoactive bowel sounds. No palpable organomegaly. MUSCULOSKELETAL: No joint swelling or deformity. EXTREMITIES: No cyanosis, clubbing, or pedal edema. NEUROLOGICAL: Gross neurological examination did not reveal any focal deficits. SKIN: No rashes. Assessment and Plan -Fever likely postoperative atelectasis patient encouraged to increase activity level and to continue with incentive spirometer 10 x an hour while awake. Sepsis work up in progress blood cultures are pending but negative so far at 48 hours. No clear source of infection at this time, procalcitonin is mildly elevated and patient received 3 days of IV ceftriaxone and will continue on oral ceftin for 2 additional days on discharge. -Degenerative disc disease postoperative day #3 revision L4-pelvis decompression and fusion on supportive care -Leukocytosis, likely reactive patient did receive a dose of oral decadron likely contributing to the elevation. Expected to improve and will repeat CBC and BMP outpatient. -Sinus tachycardia recommend EKG and telemetry monitoring, Patient will be hy drated and monitor for improvement. Tachycardia may be due to underlying infection/fever. -Gastroesophageal reflux disease -Hx of migraines -Smoking history -Marijuana use GI prophylaxis: Continue on protonix DVT prophylaxis: Heparin subcu Full Code Medically this patient is cleared for discharge. Repeat labs in 2 to 3 days. Continue IS 10 x an hour and increase activity level. All other discharge instructions per orthopedics. Thank you for this consultation. The impression and plan of care has been dictated by Corie Pineda, Nurse Practitioner as directed. Dr. Herberth MD I have performed a history and physical examination and medical decision making of this patient, discussed the same with the dictator, and agree with the dictators assessment and plan as written, documented as a scribe. Based on total visit time, I have performed more than 50% of this visit. Objective - Vital Signs Vital signs: Vital Signs Temp 99.1 F 02/04/23 08:00 Pulse 108 H 02/04/23 09:08 Resp 18 02/04/23 08:00 BP 117/77 02/04/23 08:00 Pulse Ox 94 L 02/04/23 08:00 FiO2 Intake & Output 02/03/23 02/04/23 02/04/23 18:59 06:59 18:59 Output Total 1000 Balance -1000 Output: Urine 1000 Other: Voiding Method Toilet Toilet # Voids 3 - Labs CBC & Chem 7: 02/04/23 06:06 02/03/23 05:54 Labs: Abnormal Lab Results - Last 24 Hours (Table) 02/03/23 02/03/23 02/04/23 Range/Units 05:54 05:54 06:06 WBC 12.24 H 15.57 H (4.50-10.00) X 10*3/uL RBC 3.73 L 3.99 L (4.40-5.60) X 10*6/uL Hgb 11.9 L 12.8 L (13.0-17.0) g/dL Hct 35.9 L 37.7 L (39.6-50.0) % MCH 32.1 H (27.0-32.0) pg Immature Gran # 0.05 H 0.09 H (0.00-0.04) X 10*3/uL Neutrophils # 9.18 H 13.77 H (1.80-7.70) X 10*3/uL Monocytes # 1.14 H (0.20-1.00) X 10*3/uL Eosinophils # 0 L (0.04-0.35) X 10*3/uL BUN/Creatinine Ratio 9.10 L (12.00-20.00) Ratio Glucose 113 H (70-110) mg/dL Microbiology - Last 24 Hours (Table) 02/02/23 12:47 Blood Culture - Preliminary Blood Assessment and Plan Time with Patient: Less than 30
[2023-02-04 17:06] VITALS: BP 115/77; PULSE 109; TEMP 98.5
== END 2023-02-04 17:52 | disposition home or self-care (01) | DRG 454 ==
LOC: 2ORMAIN 09:03 → 4SSUR 16:07
PROVIDERS: ADMIT Orthopaedic Surgery; ATTEND Orthopaedic Surgery
PROC: 0SG0071 Fusion of Lumbar Vertebral Joint with Autologous Tissue Substitute, Posterior Approach, Posterior Column, Open Approach (ICD-10-PCS; 2023-02-01)
PROC: 0SG30AJ Fusion of Lumbosacral Joint with Interbody Fusion Device, Posterior Approach, Anterior Column, Open Approach (ICD-10-PCS; 2023-02-01)
PROC: 0SG3071 Fusion of Lumbosacral Joint with Autologous Tissue Substitute, Posterior Approach, Posterior Column, Open Approach (ICD-10-PCS; 2023-02-01)
PROC: 01NB0ZZ Release Lumbar Nerve, Open Approach (ICD-10-PCS; 2023-02-01)
PROC: 01NR0ZZ Release Sacral Nerve, Open Approach (ICD-10-PCS; 2023-02-01)
PROC: 00NY0ZZ Release Lumbar Spinal Cord, Open Approach (ICD-10-PCS; 2023-02-01)
PROC: 0QH304Z Insertion of Internal Fixation Device into Left Pelvic Bone, Open Approach (ICD-10-PCS; 2023-02-01)
PROC: 0QH204Z Insertion of Internal Fixation Device into Right Pelvic Bone, Open Approach (ICD-10-PCS; 2023-02-01)
PROC: 0SP30AZ Removal of Interbody Fusion Device from Lumbosacral Joint, Open Approach (ICD-10-PCS; 2023-02-01)
PROC: 0ST20ZZ Resection of Lumbar Vertebral Disc, Open Approach (ICD-10-PCS; 2023-02-01)
PROC: 0ST40ZZ Resection of Lumbosacral Disc, Open Approach (ICD-10-PCS; 2023-02-01)
PROC: 8E0WXBZ Computer Assisted Procedure of Trunk Region (ICD-10-PCS; 2023-02-01)
PROC: 0WJL0ZZ Inspection of Lower Back, Open Approach (ICD-10-PCS; 2023-02-01)
PROC: 0SG00AJ Fusion of Lumbar Vertebral Joint with Interbody Fusion Device, Posterior Approach, Anterior Column, Open Approach (ICD-10-PCS; principal; 2023-02-01 10:45)
DX: M96.0 Pseudarthrosis after fusion or arthrodesis (principal); J95.89 Other postprocedural complications and disorders of respiratory system, not elsewhere classified; M47.16 Other spondylosis with myelopathy, lumbar region; J98.11 Atelectasis; R50.82 Postprocedural fever; M62.562 Muscle wasting and atrophy, not elsewhere classified, left lower leg; F41.9 Anxiety disorder, unspecified; K21.9 Gastro-esophageal reflux disease without esophagitis; M47.26 Other spondylosis with radiculopathy, lumbar region; M48.062 Spinal stenosis, lumbar region with neurogenic claudication; M47.27 Other spondylosis with radiculopathy, lumbosacral region; M51.17 Intervertebral disc disorders with radiculopathy, lumbosacral region; G47.9 Sleep disorder, unspecified; D72.828 Other elevated white blood cell count; G43.909 Migraine, unspecified, not intractable, without status migrainosus; M51.16 Intervertebral disc disorders with radiculopathy, lumbar region; Y83.8 Other surgical procedures as the cause of abnormal reaction of the patient, or of later complication, without mention of misadventure at the time of the procedure; Z87.891 Personal history of nicotine dependence; Z11.52 Encounter for screening for COVID-19; Z79.899 Other long term (current) drug therapy
CPT/HCPCS: 71045; 72100; 72131; 80048; 81001; 84145; 85025; 87040; 87636; 93005; 94640

== ENCOUNTER 2023-02-06 09:25 | Emergency (ER) | payer MEDICARE, OTHER ==
[2023-02-06 09:49] VITALS: TEMP 97.6
[2023-02-06] MEDS ORDERED: ORPHENADRINE 30 MG/ML 2 ML VIAL IVP STA (10:31)
[2023-02-06] MEDS ORDERED: DEXAMETHASONE SOD PHOSPHATE 10 MG/ML 1 ML VIAL IVP STA (10:31)
--- NOTE | 2023-02-06 11:44 | ED ---
Back Pain HPI - General Chief Complaint: Back Pain/Injury Stated Complaint: Right leg pain Time Seen by Provider: 02/06/23 09:40 Source: patient, family, RN notes reviewed Limitations: no limitations - History of Present Illness Initial Comments: 52-year-old male presents emergency Department chief complaint right leg pain, low back pain. Patient states he had a revision of his lumbar fusion by Dr. Holland on January 26 6023. Patient states he she had a right proximal leg, thigh pain. States that is very intense pain nothing makes it feel better or worse comes and goes. Patient denies any swelling of his leg denies any significant weakness he states this started after he left the hospital on Tuesday. Patient states he has not changes pain regimen though he was receiving IV pain meds and steroids while in the hospital. Dies any bowel, bladder incontinence or retentionanesthesia. - Related Data Home Medications Medication Instructions Recorded Confirmed SUMAtriptan succinate [Imitrex] 50 mg PO BID PRN 12/12/17 02/01/23 Pantoprazole Sodium [Protonix] 40 mg PO QAM 04/16/21 02/01/23 Fenofibrate [Lofibra] 160 mg PO DAILY 02/01/23 02/01/23 Previous Rx's Medication Instructions Recorded Cyclobenzaprine [Flexeril] 5 mg PO TID #40 tablet 02/04/23 Gabapentin 300 mg PO TID #90 cap 02/04/23 cefUROXime axetiL [Ceftin] 500 mg PO BID 2 Days #4 tab 02/04/23 cefaDROXiL [Duricef] 500 mg PO Q12HR #10 cap 02/04/23 oxyCODONE-APAP 5-325MG [Percocet 1 tab PO Q4HR PRN #42 tab 02/04/23 5-325 mg] Allergies Allergy/AdvReac Type Severity Reaction Status Date / Time aspirin AdvReac Nausea Verified 02/06/23 09:36 Review of Systems ROS Statement: Those systems with pertinent positive or pertinent negative responses have been documented in the HPI. ROS Other: All systems not noted in ROS Statement are negative. Past Medical History Past Medical History: GERD/Reflux, Osteoarthritis (OA) Additional Past Medical History / Comment(s): Frequent migraine headaches especially w/stressful situations. Pain and burning down both legs. History of Any Multi-Drug Resistant Organisms: None Reported Past Surgical History: Back Surgery, Hernia Repair, Orthopedic Surgery Additional Past Surgical History / Comment(s): Right shoulder rotator cuff surg riaz , vasectomy, bilateral carpal tunnel, robotic laparoscopic repair left inguinal hernia. Past Anesthesia/Blood Transfusion Reactions: No Reported Reaction Past Psychological History: Anxiety Smoking Status: Former smoker Past Alcohol Use History: None Reported Past Drug Use History: Marijuana - Past Family History Mother Family Medical History: No Reported History General Exam Limitations: no limitations General appearance: alert, in no apparent distress Head exam: Present: atraumatic, normocephalic, normal inspection Eye exam: Present: normal appearance, PERRL, EOMI. Absent: scleral icterus, conjunctival injection, periorbital swelling ENT exam: Present: normal exam, normal oropharynx, mucous membranes moist Neck exam: Present: normal inspection, full ROM. Absent: tenderness, meningismus, lymphadenopathy Respiratory exam: Present: normal lung sounds bilaterally. Absent: respiratory distress, wheezes, rales, rhonchi, stridor Cardiovascular Exam: Present: normal rhythm, tachycardia, normal heart sounds. Absent: systolic murmur, diastolic murmur, rubs, gallop, clicks GI/Abdominal exam: Present: soft, normal bowel sounds. Absent: distended, tenderness, guarding, rebound, rigid Back exam: Present: normal inspection (Noted, no drainage), tenderness (Minimal). Absent: full ROM (Decreased range of motion secondary to recent surgery) Neurological exam: Present: alert, oriented X3, CN II-XII intact, reflexes normal. Absent: motor sensory deficit Course Vital Signs 02/06/23 09:33 Temperature 97.6 F Pulse Rate 113 H Respiratory 18 Rate Blood Pressure 117/75 O2 Sat by Pulse 100 Oximetry Medical Decision Making - Medical Decision Making Was pt. sent in by a medical professional or institution (, PA, PUBLIC AID ELIGIBILITY ASSISTANT, urgent care, hospital, or senior care...) When possible be specific @ -No Did you speak to anyone other than the patient for history (EMS, parent, family, police, friend...)? What history was obtained from this source @ -No Did you review nursing and triage notes (agree or disagree)? Why? @ -I reviewed and agree with nursing and triage notes Were old charts reviewed (outside hosp., previous admission, EMS record, old EKG, old radiological studies, urgent care reports/EKG's, senior care records)? Report findings @ -No old charts were reviewed Differential Diagnosis (chest pain, altered mental status, abdominal pain women, abdominal pain men, vaginal bleeding, weakness, fever, dyspnea, syncope, headache, dizziness, GI bleed, back pain, seizure, CVA, palpatations, mental health, musculoskeletal)? @ -Lumbar fusion, back pain, radicular pain, postsurgical complication EKG interpreted by me (3pts min.). @ -None X-rays interpreted by me (1pt min.). @ -None done CT interpreted by me (1pt min.). @ -None done U/S interpreted by me (1pt. min.). @ -None done What testing was considered but not performed or refused? (CT, X-rays, U/S, labs)? Why? @ -None What meds were considered but not given or refused? Why? @ -None Did you discuss the management of the patient with other professionals (professionals i.e. , PA, PUBLIC AID ELIGIBILITY ASSISTANT, lab, RT, psych nurse, clinical social work aide, butt welder, teacher, zoology technical officer, caser)? Give summary @ -I did discuss the case with Bethany on-call for orthopedics Dr. Holland recommends IV steroids, pain control did not feel necessary for admission or further imaging this is, seen postsurgical. Patient was evaluated by orthopedics in the room for medication adjustment. Was smoking cessation discussed for >3mins.? @ -No Was critical care preformed (if so, how long)? @ -No Were there social determinants of health that impacted care today? How? (Homelessness, low income, unemployed, alcoholism, drug addiction, transportation, low edu. Level, literacy, decrease access to med. care, group home, rehab)? @ -No Was there de-escalation of care discussed even if they declined (Discuss DNR or withdrawal of care, Hospice)? DNR status @ -No What co-morbidities impacted this encounter? (DM, HTN, Smoking, COPD, CAD, Cancer, CVA, ARF, Chemo, Hep., AIDS, mental health diagnosis, sleep apnea, morbid obesity)? @ -None Was patient admitted / discharged? Hospital course, mention meds given and route , prescriptions, significant lab abnormalities, going to OR and other pertinent info. @ -Discharge patient had adequate analgesic, pain relief. Patient symptoms are improved patient will follow-up with orthopedics return parameters discussed. Undiagnosed new problem with uncertain prognosis? @ -No Drug Therapy requiring intensive monitoring for toxicity (Heparin, Nitro, Insulin, Cardizem)? @ -No Were any procedures done? @ -No Diagnosis/symptom? @ -Lumbar radicular pain, status post lumbar fusion Acute, or Chronic, or Acute on Chronic? @ -Acute Uncomplicated (without systemic symptoms) or Complicated (systemic symptoms)? @ -Uncomplicated Side effects of treatment? @ -No Exacerbation, Progression, or Severe Exacerbation? @ -No Poses a threat to life or bodily function? How? (Chest pain, [place], ME, pneumonia, PE, COPD, DKA, ARF, appy, cholecystitis, CVA, Diverticulitis, Homicidal, Suicidal, threat to staff... and all critical care pts) @ -No Disposition Clinical Impression: Lumbar radiculopathy, Status post lumbar spinal fusion Disposition: HOME SELF-CARE Condition: Stable Instructions (If sedation given, give patient instructions): Acute Low Back Pain (ED) Additional Instructions: Please return to the Emergency Department if symptoms worsen or any other concerns. Is patient prescribed a controlled substance at d/c from ED?: No Referrals: Reginald Wesley DO [Primary Care Provider] - 1-2 days Time of Disposition: 11:44
[2023-02-06] MEDS ORDERED: HYDROmorphone 1 MG/ML 1 ML SYRINGE IM STA (12:41)
[2023-02-06 15:50] VITALS: BP 127/89; PULSE 93; RESP 16
== END 2023-02-06 14:45 | disposition home or self-care (01) ==
LOC: EC 09:25
DX: M54.16 Radiculopathy, lumbar region (principal); Z98.1 Arthrodesis status; K21.9 Gastro-esophageal reflux disease without esophagitis; F12.90 Cannabis use, unspecified, uncomplicated; Z86.59 Personal history of other mental and behavioral disorders; Z79.899 Other long term (current) drug therapy
CPT/HCPCS: 99283; 96374; 96375; 96372; J1100; J2360; J1170

== ENCOUNTER → 2023-02-09 | Outpatient (CLI) | payer MEDICARE, OTHER ==
[2023-02-09 19:01] LABS: BUN/Creat Ratio 21.33 Ratio (12.00-20.00); Blood Urea Nitrogen 19.2 mg/dL (9.0-27.0); Carbon Dioxide 23.6 mmol/L (21.6-31.8); Chloride 102 mmol/L (96-109); Glucose 151 mg/dL (70-110); Potassium 4.8 mmol/L (3.5-5.5); Sodium 137 mmol/L (135-145)
[2023-02-09 19:02] LABS: Calcium 9.6 mg/dL (8.7-10.3)
[2023-02-09 19:07] LABS: Basophils # (A) 0.02 X 10*3/uL (0.00-0.10); Basophils % (A) 0.1 %; Eosinophils # (A) 0 X 10*3/uL (0.04-0.35); Eosinophils % (A) 0 %; HCT 43.7 % (39.6-50.0); HGB 14.3 g/dL (13.0-17.0); Lymphocytes # (A) 1.52 X 10*3/uL (0.90-5.00); Lymphocytes % (A) 9.4 %; MCH 31.4 pg (27.0-32.0); MCHC 32.7 g/dL (32.0-37.0); Monocytes # (A) 0.51 X 10*3/uL (0.20-1.00); Monocytes % (A) 3.1 %; NRBC Per 100 WBC 0 X 10*3/uL (0.00-0.01); Neutrophils # (A) 14.06 X 10*3/uL (1.80-7.70); Neutrophils % (A) 86.7 %; Platelet Count 608 X 10*3/uL (140-440); RBC 4.55 X 10*6/uL (4.40-5.60); RDW 12.6 % (11.5-14.5); WBC 16.22 X 10*3/uL (4.50-10.00)
== END | disposition home or self-care (01) ==
LOC: LABWHC1 13:34
PROVIDERS: ATTEND Nurse Practitioner Family
DX: D72.829 Elevated white blood cell count, unspecified (principal)
CPT/HCPCS: 36415; 80048; 85025

== ENCOUNTER → 2023-02-23 | Outpatient (CLI) | payer MEDICARE, OTHER ==
[2023-02-23 15:30] LABS: ALT 19 U/L (10-49); AST 14 U/L (14-35); Albumin 3.9 g/dL (3.8-4.9); Albumin/Globulin Ratio 1.86 Ratio (1.60-3.17); Alkaline Phosphatase 135 U/L (41-126); BUN/Creat Ratio 16.82 Ratio (12.00-20.00); Blood Urea Nitrogen 18.5 mg/dL (9.0-27.0); Calcium 9.4 mg/dL (8.7-10.3); Carbon Dioxide 25.9 mmol/L (21.6-31.8); Chloride 106 mmol/L (96-109); Globulin 2.1 g/dL (1.6-3.3); Glucose 87 mg/dL (70-110); Iron 144 UG/DL (65-175); Potassium 5.1 mmol/L (3.5-5.5); Sodium 142 mmol/L (135-145); Total Bilirubin 0.3 mg/dL (0.3-1.2); Uric Acid 3.6 mg/dL (3.7-8.7)
[2023-02-23 15:37] LABS: Basophils # (A) 0.03 X 10*3/uL (0.00-0.10); Basophils % (A) 0.3 %; Eosinophils # (A) 0.23 X 10*3/uL (0.04-0.35); Eosinophils % (A) 2.5 %; HCT 43.1 % (39.6-50.0); HGB 13.9 g/dL (13.0-17.0); Lymphocytes # (A) 1.94 X 10*3/uL (0.90-5.00); Lymphocytes % (A) 21.5 %; MCH 31.2 pg (27.0-32.0); MCHC 32.3 g/dL (32.0-37.0); MCV 96.9 FL (80.0-97.0); Mean Platelet Volume 9.1 FL (9.5-12.2); Monocytes # (A) 0.68 X 10*3/uL (0.20-1.00); Monocytes % (A) 7.5 %; NRBC Per 100 WBC 0 X 10*3/uL (0.00-0.01); Neutrophils # (A) 6.13 X 10*3/uL (1.80-7.70); Neutrophils % (A) 67.9 %; Platelet Count 327 X 10*3/uL (140-440); RBC 4.45 X 10*6/uL (4.40-5.60); RDW 12.8 % (11.5-14.5); WBC 9.04 X 10*3/uL (4.50-10.00)
== END | disposition home or self-care (01) ==
LOC: LABWHC1 10:17
PROVIDERS: ATTEND Nurse Practitioner Family
DX: D72.829 Elevated white blood cell count, unspecified (principal)
CPT/HCPCS: 36415; 80053; 82607; 82668; 83540; 83625; 83883; 84550; 85025

== ENCOUNTER 2023-04-18 11:19 | Day surgery (SDC) | payer MEDICARE, OTHER ==
[2023-04-14 13:59] VITALS: BMI 32.2
[~2023-04-18 11:19] MED LIST changes: -ACETAMINOPHEN TAB 500 MG TAB PO PRN; -GABAPENTIN 300 MG CAP PO PRN; +LIDOCAINE 1% (10MG/ML) FOR IV START INTRADERMA PRN; -ONDANSETRON 4 MG/2 ML VIAL IVP PRN; -TRANEXAMIC 1,000 MG/100ML-NACL 1,000 MG in SALINE 1 100ML.BAG IVPB PRN
[2023-04-18 11:46] VITALS: TEMP 97.9
[2023-04-18] MEDS: LACTATED RINGERS 1,000 ML IV SCH (11:50)
[2023-04-18] MEDS: fentaNYL (PF) 50 MCG/ML 2 ML AMP IVP ONE (11:51)
[2023-04-18] MEDS ORDERED: LIDOCAINE 1% INJ 10MG/ML (20 ML MDV) ONE (12:51)
[2023-04-18] MEDS ORDERED: PROPOFOL 10 MG/ML 20 ML VIAL IV ONE (12:51)
--- NOTE | 2023-04-18 13:02 | P.GSHP ---
History of Present Illness H&P Date: 04/18/23 Chief Complaint: Dysphagia,. This is a 52-year-old male has complaints of GERD GERD and dysphagia. Patient presents today for EGD. Past Medical History Past Medical History: COPD, GERD/Reflux, Osteoarthritis (OA) Additional Past Medical History / Comment(s): migraines, copd (no rx)., back pain-hx surgeries with fusion., states feels like phlegm in his throat. History of Any Multi-Drug Resistant Organisms: None Reported Past Surgical History: Back Surgery, Hernia Repair, Orthopedic Surgery Additional Past Surgical History / Comment(s): Right shoulder rotator cuff surgery , vasectomy, bilateral carpal tunnel, robotic laparoscopic repair left inguinal hernia., Back surgery x2 with fusion. Past Anesthesia/Blood Transfusion Reactions: No Reported Reaction Past Psychological History: Anxiety Additional Psychological History / Comment(s): . Smoking Status: Former smoker Past Alcohol Use History: None Reported Additional Past Alcohol Use History / Comment(s): Started smoking at age 16, 1/2 ppd, quit September 2019. Past Drug Use History: Marijuana Additional Drug Use History / Comment(s): no current marijuana - Past Family History Mother Family Medical History: No Reported History Medications and Allergies Home Medications Medication Instructions Recorded Confirmed Type SUMAtriptan succinate [Imitrex] 50 mg PO DIRECTED PRN 12/12/17 04/14/23 History Pantoprazole Sodium [Protonix] 40 mg PO QAM 04/16/21 04/14/23 History Fenofibrate [Lofibra] 160 mg PO DAILY 02/01/23 04/14/23 History Cyclobenzaprine [Flexeril] 5 mg PO TID #40 tablet 02/04/23 04/14/23 Rx Gabapentin 600 mg PO TID 04/14/23 04/14/23 History Allergies Allergy/AdvReac Type Severity Reaction Status Date / Time aspirin AdvReac Nausea Verified 04/14/23 13:15 Surgical - Exam Vital Signs Temp Pulse Resp BP Pulse Ox 97.9 F 91 16 147/85 98 04/18/23 11:41 04/18/23 11:41 04/18/23 11:41 04/18/23 11:41 04/18/23 11:41 - General well developed, well nourished, no distress - Eyes PERRL - ENT normal pinna - Neck no masses - Respiratory normal expansion - Cardiovascular Rhythm: regular - Abdomen Abdomen: soft, non tender Assessment and Plan Assessment: GERD, dysphagia. We'll perform EGD.
--- NOTE | 2023-04-18 13:05 | P.OP ---
Date of Procedure: 04/18/23 Preoperative Diagnosis: Dysphagia, GERD Postoperative Diagnosis: Mild antral gastritis Mild esophagitis Procedure(s) Performed: EGD Anesthesia: MAC Surgeon: Stevo Rosenthal Pathology: other (Antrum, esophagus) Condition: stable Disposition: PACU Description of Procedure: The patient's placed on the endoscopy table in the lateral position. He received IV sedation. The gastro-/oropharynx passed in the esophagus and stomach. Scope some placed through the pylorus. The first and second portion of the duodenum appeared normal. Scope summer back the antrum this. Mildly inflamed. A biopsies performed. The scope was unretroflexed and remainder the stomach appeared normal. The GE junction was at 47 is. The distal esophagus appeared mildly inflamed. A biopsies performed. The proximal esophagus appeared normal. Scope withdrawn for patient.
[2023-04-18 14:04] VITALS: BP 135/81; PULSE 85; RESP 16
== END 2023-04-18 13:40 | disposition home or self-care (01) ==
LOC: ORWHC2ENDO 11:19
PROVIDERS: ATTEND Surgery
DX: K29.50 Unspecified chronic gastritis without bleeding (principal); K21.00 Gastro-esophageal reflux disease with esophagitis, without bleeding; J44.9 Chronic obstructive pulmonary disease, unspecified; M19.90 Unspecified osteoarthritis, unspecified site; Z98.890 Other specified postprocedural states; F41.9 Anxiety disorder, unspecified; Z87.891 Personal history of nicotine dependence; Z79.899 Other long term (current) drug therapy; Z88.6 Allergy status to analgesic agent
CPT/HCPCS: 88305; 43239; J2001; J3010; J2704

== ENCOUNTER → 2023-05-04 | Day surgery (SDC) | payer MEDICARE, OTHER ==
--- NOTE | 2023-04-25 14:14 | P.HPOR ---
History of Present Illness H&P Date: 04/25/23 Subjective: This is a 52 year old male that presents today for follow up evaluation regarding a several month history of right wrist pain located near the base of the thumb and wrist. He notes the pain radiates down the thumb and is worse with lifting and twisting the wrist. He denies any numbness or tingling. He denies any injury or inciting event. He has been wearing a thumb spica brace with little relief from his symptoms since last visit. Physical Examination: RUE: AIN/PIN/Radial/Ulnar/Median motor intact. Radial/Ulnar/Median SILT. 2+/4 Radial/Ulnar pulses palpated. 5/5 APB, 5/5 FDI. Positive Finkelsteins, negative CMC grind, negative Durkan's compression. Imaging: X-Rays of the right hand, 3 view taken at prior office visit demonstrates mild to moderate degenerative changes of the thumb CMC joint. Intraosseous bone cyst present and distal pole scaphoid. Impression: 1.) Right DeQuervains tenosynovitis Plan: Diagnosis and treatment options were discussed with the patient. We discussed steroid injection vs surgery. He wishes to avoid any injection at this time and go forward with a right first dorsal compartment release. Risks and benefits of surgery including bleeding, infection, damage to surrounding tissue, need for further surgery, residual numbness were discussed and the patient wished to go forward with surgery. The patient was agreeable with this plan. CC: Patti Wesley M.D. -Marcus Meier DO Orthopedic Hand/Upper Extremity Surgeon Past Medical History Past Medical History: GERD/Reflux, Hyperlipidemia, Osteoarthritis (OA) Additional Past Medical History / Comment(s): Frequent migraine headaches especially w/stressful situations. left foot numb from back surgery. rt wrist pain History of Any Multi-Drug Resistant Organisms: None Reported Past Surgical History: Back Surgery, Hernia Repair, Orthopedic Surgery Additional Past Surgical History / Comment(s): Right shoulder rotator cuff surgery , vasectomy, bilateral carpal tunnel, robotic laparoscopic repair left inguinal hernia. colonoscopy. egd Past Anesthesia/Blood Transfusion Reactions: No Reported Reaction Additional Past Anesthesia/Blood Transfusion Reaction / Comment(s): no blood transfusions Smoking Status: Former smoker - Past Family History Mother Family Medical History: No Reported History Medications and Allergies Home Medications Medication Instructions Recorded Confirmed Type SUMAtriptan succinate [Imitrex] 50 mg PO DIRECTED PRN 12/12/17 04/22/23 History Pantoprazole Sodium [Protonix] 40 mg PO QAM 04/16/21 04/22/23 History Fenofibrate [Lofibra] 160 mg PO DAILY 02/01/23 04/22/23 History Cyclobenzaprine [Flexeril] 5 mg PO TID #40 tablet 02/04/23 04/22/23 Rx Gabapentin 600 mg PO TID 04/14/23 04/22/23 History Naproxen Sodium [Aleve] 220 mg PO DIRECTED PRN 04/22/23 04/22/23 History Allergies Allergy/AdvReac Type Severity Reaction Status Date / Time aspirin AdvReac Nausea Verified 04/22/23 09:54 Physical Examination Osteopathic Statement: *. No significant issues noted on an osteopathic structural exam other than those noted in the History and Physical/Consult.
[2023-04-29 15:31] VITALS: BMI 34.1
--- NOTE | 2023-05-03 12:53 | P.HPOR ---
History of Present Illness H&P Date: 05/03/23 Subjective: This is a 52 year old male that presents today for follow up evaluation regarding a several month history of right wrist pain located near the base of the thumb and wrist. He notes the pain radiates down the thumb and is worse with lifting and twisting the wrist. He denies any numbness or tingling. He denies any injury or inciting event. He has been wearing a thumb spica brace with little relief from his symptoms since last visit. Physical Examination: RUE: AIN/PIN/Radial/Ulnar/Median motor intact. Radial/Ulnar/Median SILT. 2+/4 Radial/Ulnar pulses palpated. 5/5 APB, 5/5 FDI. Positive Finkelsteins, negative CMC grind, negative Durkan's compression. Imaging: X-Rays of the right hand, 3 view taken at prior office visit demonstrates mild to moderate degenerative changes of the thumb CMC joint. Intraosseous bone cyst present and distal pole scaphoid. Impression: 1.) Right DeQuervains tenosynovitis Plan: Diagnosis and treatment options were discussed with the patient. We discussed steroid injection vs surgery. He wishes to avoid any injection at this time and go forward with a right first dorsal compartment release. Risks and benefits of surgery including bleeding, infection, damage to surrounding tissue, need for further surgery, residual numbness were discussed and the patient wished to go forward with surgery. The patient was agreeable with this plan. CC: Patti Wesley M.D. -Marcus Meier DO Orthopedic Hand/Upper Extremity Surgeon Past Medical History Past Medical History: GERD/Reflux, Hyperlipidemia, Osteoarthritis (OA) Additional Past Medical History / Comment(s): Frequent migraine headaches especially w/stressful situations. left foot numb from back surgery. rt wrist pain, Pt is having testing for sleep apnea 05-06-23. History of Any Multi-Drug Resistant Organisms: None Reported Past Surgical History: Back Surgery, Hernia Repair, Orthopedic Surgery Additional Past Surgical History / Comment(s): Right shoulder rotator cuff surgery , vasectomy, bilateral carpal tunnel, robotic laparoscopic repair left inguinal hernia. colonoscopy. egd, total rt shoulder, EGD 04/30. Past Anesthesia/Blood Transfusion Reactions: No Reported Reaction Additional Past Anesthesia/Blood Transfusion Reaction / Comment(s): no blood transfusions Smoking Status: Former smoker - Past Family History Mother Family Medical History: No Reported History Medications and Allergies Home Medications Medication Instructions Recorded Confirmed Type SUMAtriptan succinate [Imitrex] 50 mg PO DIRECTED PRN 12/12/17 04/29/23 History Pantoprazole Sodium [Protonix] 40 mg PO QAM 04/16/21 04/29/23 History Fenofibrate [Lofibra] 160 mg PO QAM 02/01/23 04/29/23 History Cyclobenzaprine [Flexeril] 5 mg PO TID #40 tablet 02/04/23 04/29/23 Rx Gabapentin 600 mg PO TID 04/14/23 04/29/23 History Naproxen Sodium [Aleve] 220 mg PO DIRECTED PRN 04/22/23 04/29/23 History Allergies Allergy/AdvReac Type Severity Reaction Status Date / Time aspirin AdvReac Nausea Verified 04/29/23 14:52 Physical Examination Osteopathic Statement: *. No significant issues noted on an osteopathic structural exam other than those noted in the History and Physical/Consult.
[~2023-05-04] MED LIST changes: +DEXAMETHASONE SOD PHOSPHATE 4 MG/ML 1 ML VIAL IV ONE; +HYDROmorphone 0.5 MG/0.5 ML SYRINGE IVP PRN; +LACTATED RINGERS 1,000 ML IV SCH; -LIDOCAINE 1% (10MG/ML) FOR IV START INTRADERMA PRN; +LIDOCAINE 1% INJ 10MG/ML (20 ML MDV) ONE; +MIDAZOLAM 2 MG/2 ML VIAL ONE; +PROPOFOL 10 MG/ML 20 ML VIAL IV ONE; +Pre Op ABX Message 1 EACH MISC MISCELLANE ONE; +fentaNYL (PF) 50 MCG/ML 2 ML AMP IV PRN; +fentaNYL (PF) 50 MCG/ML 2 ML AMP ONE
[2023-05-04] MEDS: ONDANSETRON 4 MG/2 ML VIAL IVP ONE (10:46)
[2023-05-04] MEDS: LACTATED RINGERS 1,000 ML IV SCH (10:46)
[2023-05-04] MEDS: DEXAMETHASONE SOD PHOSPHATE 4 MG/ML 1 ML VIAL IV ONE (10:46)
[2023-05-04 10:56] VITALS: PULSE 98; TEMP 97.4
[2023-05-04] MEDS: LIDOCAINE 2% INJ 20 MG/ML SQ ONE ×2 (11:22→11:29)
[2023-05-04] MEDS: BUPIVACAINE (PF) 0.5% 30 ML VIAL SQ ONE ×2 (11:22→11:29)
--- NOTE | 2023-05-04 11:48 | P.OP ---
Date of Procedure: 05/04/23 Preoperative Diagnosis: Right DeQuervains tenosynovitis Postoperative Diagnosis: Right DeQuervains tenosynovitis Procedure(s) Performed: Right wrist first dorsal compartment release Anesthesia: MAC Surgeon: Marcus Meier Asbestos Surveyor #1: Misael Guzmán Estimated Blood Loss (ml): 0 Pathology: none sent Condition: stable Disposition: PACU Description of Procedure: This is a 52 year old male who presents today for a right first dorsal compartment release after having failed conservative treatment. Risks and benefits of surgery were discussed with the patient including bleeding, damage to surrounding tissue, infection, need for further surgery as well as risks of anesthesia including pulmonary embolism and even and the patient wished to proceed with surgical intervention. The patients was seen in the pre-operative area by myself. Consent and H&P were completed and updated. The correct extremity was marked in the pre-operative area by myself and all other questions were answered. Operative Narrative: The patient was brought to the operating room by the department of anesthesia. They remained on the portable stretcher and a rolling hand table was brought to the side of the operative extremity. The patient was then drifted off to sleep by the department of anesthesia. A nonsterile tourniquet was then applied to the operative extremity and the right upper extremity was then prepped and draped in normal sterile fashion. Pre-operative time out was performed indicating the correct patient, procedure and laterality. All in the room agreed. MAC anesthesia was utilized and a 50:50 mixture of 1% Lidocaine and 0.5% bupivacaine was injected into the subcutaneous tissues of the radial wrist skin, 10ccs total. Pre-operative antibiotics were given prior to skin incision. The operative extremity was the exsanguinated with an esmarch bandage and the tourniquet was inflated to 250mmHg. 15 blade scalpel was used to make a horizontal skin incision centered over the first dorsal compartment of the right wrist. Blunt dissection was taken down to the proximal edge of the first dorsal compartment while taking care to identify and protect branches of the superficial radial sensory nerve. The first dorsal compartment was released in its entirety from proximal to distal. APL and EPB tendons were identified and a seperate compartment was present for an accessory APB tendon, this was also released. Skin closure was performed with 4-0 Monocryl suture and steri strips. Sterile soft dressing was applied consisting of 4x4's cast padding and an castillo wrap. The patient was then woken by the department of anesthesia and transferred to PACU in stable condition. Misael RODRIGUEZ was present to assist in retraction. Marcus Meier D.O. Orthopedic Hand/Upper Extremity Surgeon
[2023-05-04 12:48] VITALS: BP 130/81
[2023-05-04 12:49] VITALS: RESP 20
== END | disposition home or self-care (01) ==
LOC: OR 10:02
PROVIDERS: ATTEND Orthopaedic Surgery Hand Surgery
DX: M65.4 Radial styloid tenosynovitis [de Quervain] (principal); E78.5 Hyperlipidemia, unspecified; K21.9 Gastro-esophageal reflux disease without esophagitis; J44.9 Chronic obstructive pulmonary disease, unspecified; G47.33 Obstructive sleep apnea (adult) (pediatric); F41.9 Anxiety disorder, unspecified; M19.90 Unspecified osteoarthritis, unspecified site; F12.90 Cannabis use, unspecified, uncomplicated; Z98.890 Other specified postprocedural states; Z79.899 Other long term (current) drug therapy; Z87.891 Personal history of nicotine dependence; Z88.6 Allergy status to analgesic agent; Z96.611 Presence of right artificial shoulder joint
CPT/HCPCS: 25000; J2001 ×2; J2250; J1100; J2405; J3010; J2704; J0665

== ENCOUNTER → 2023-05-05 | Outpatient (CLI) | payer MEDICARE ==
--- NOTE | 2023-05-05 12:51 | NM ---
Nuclear medicine hepatobiliary scan. HISTORY: Pain. DOSAGE: The patient received 8 0z Ensure plus and 4.7 mCi of Technetium 99m Choletec. FINDINGS: There is normal hepatic extraction. The gallbladder is seen by 20 minutes. There is bilia ry to bowel clearance by 20 minutes. Ejection fraction is 96%. IMPRESSION: 1. No evidence of cholecystitis. 2. Ejection fraction of 96% can occasionally be associated with hyperdynamic gallbladder.
== END | disposition home or self-care (01) ==
LOC: RADNMMAIN 07:07
PROVIDERS: ATTEND Surgery
DX: R10.11 Right upper quadrant pain (principal)
CPT/HCPCS: 78227

== ENCOUNTER → 2023-05-06 | Outpatient (CLI) | payer MEDICARE ==
--- NOTE | 2023-05-06 13:11 | US ---
EXAMINATION TYPE: US gallbladder DATE OF EXAM: 05/06/2023 COMPARISON: NM 05/05/2023 CLINICAL INDICATION: Male, 52 years old with history of R10.11 RUQ PAIN; pain x a couple months. TECHNIQUE: Multiple sonographic images of the right upper quadrant are obtained. FINDINGS: EXAM MEASUREMENTS: Liver Length: 16.3 cm Gallbladder Wall: 0.18 cm CBD: Obscured Right Kidney: 11.1 x 6.1 x 4.4 cm COTTONSEED MEAT PRESSER NOTES: Exam is very limited due to gas and patient body habitus. Pancreas: Not well seen. Liver: Appears heterogeneous/coarse with increased echogenicity. Gallbladder: Appears wnl Evidence for sonographic Salazar's sign: No CBD: Obscured Right Kidney: No hydronephrosis or masses seen IMPRESSION: 1. No acute abdomen ultrasound abnormality
== END | disposition home or self-care (01) ==
LOC: RADUSWWP 09:33
PROVIDERS: ATTEND Surgery
DX: R10.11 Right upper quadrant pain (principal)
CPT/HCPCS: 76705

== ENCOUNTER 2023-05-30 06:17 | Day surgery (SDC) | payer MEDICARE ==
[2023-05-25 16:12] VITALS: BMI 32.5
[2023-05-30] MEDS ORDERED: MIDAZOLAM 2 MG/2 ML VIAL IV PRN (06:38)
[2023-05-30] MEDS ORDERED: HYDROmorphone 0.5 MG/0.5 ML SYRINGE IVP PRN (06:38)
[2023-05-30] MEDS ORDERED: LIDOCAINE 1% (10MG/ML) FOR IV START INTRADERMA PRN (06:38)
[2023-05-30] MEDS: LACTATED RINGERS 1,000 ML IV SCH (07:00)
[2023-05-30] MEDS: ONDANSETRON 4 MG/2 ML VIAL IVP ONE (07:00)
[2023-05-30] MEDS: DEXAMETHASONE SOD PHOSPHATE 4 MG/ML 1 ML VIAL IV ONE (07:00)
[2023-05-30 07:36] VITALS: TEMP 96.9
[2023-05-30] MEDS ORDERED: NEOSTIGMINE 1 MG/ML 10 ML VIAL ONE (07:37)
[2023-05-30] MEDS ORDERED: ROCURONIUM 10 MG/ML (5 ML VIAL) IV ONE (07:37)
[2023-05-30] MEDS ORDERED: GLYCOPYRROLATE 0.2 MG/ML 2 ML VIAL ONE (07:37)
[2023-05-30] MEDS ORDERED: fentaNYL (PF) 50 MCG/ML 2 ML AMP ONE (07:37)
[2023-05-30] MEDS ORDERED: SUCCINYLCHOLINE CHLORIDE 200 MG/10 ML VIAL IV ONE (07:37)
[2023-05-30] MEDS ORDERED: KETOROLAC 15 MG/ML 1 ML VIAL ONE (07:37)
[2023-05-30] MEDS ORDERED: PROPOFOL 10 MG/ML 20 ML VIAL IV ONE (07:37)
[2023-05-30] MEDS: LIDOCAINE 1%-EPI 1:100,000 20 ML VIAL SQ ONE (08:00)
--- NOTE | 2023-05-30 08:39 | P.OP ---
Date of Procedure: 05/30/23 Preoperative Diagnosis: Cholecystitis Postoperative Diagnosis: Cholecystitis Procedure(s) Performed: Laparoscopic cholecystectomy Anesthesia: ERIK Surgeon: Stevo Rosenthal IV fluids (ml): 5 Pathology: none sent Condition: stable Disposition: PACU Description of Procedure: The patient was placed on the operating table. The patient received a general endotracheal tube anesthesia. The patients abdomen was prepped and draped in the usual sterile fashion. Through an infraumbilical stab incision, the fascia of the anterior abdominal wall was grasped with a pair of Kochers and then the Veress needle was placed in the peritoneal cavity. Position of the Veress needle was confirmed with positive drop test. The abdomen was then insufflated. After adequate insufflation, the 10 mm trocar was placed in the peritoneal cavity. Following this the laparoscope was placed in the peritoneal cavity. The patient was placed in the head-up, right side up position and then a 5 mm trocar was placed in the right lateral and right subcostal position under direct visualization. A 8 mm trocar was placed in the epigastric position. The gallbladder was grasped in the fundus and infundibulum. Traction on the gallbladder was placed in the lateral and the cephalad positions. The triangle of Calot was visualized.. The cystic duct was bluntly dissected until the union of the cystic duct and common bile duct was seen. A critical view of safety was achieved. The cystic duct was then divided and sealed with the Harmonic scissors. A PDS Endoloop was then placed throughout the cystic duct stump. The cystic artery divided and sealed with the Harmonic scissors. The gallbladder was then removed from the liver bed using Harmonic scissors. The gallbladder was then extracted through the epigastric port site. Operative field was checked for any bleeding spots and Harmonic scissors was used to coagulate the liver bed. The abdomen was irrigated. The trocars were removed. The skin was closed using interrupted 3-0 Vicryl suture. Dermabond dressing were applied. The patient tolerated the procedure well.
[2023-05-30] MEDS: IV FLUID CONTINUATION 1,000 ML IV ONE (09:13)
[2023-05-30 11:22] VITALS: PULSE 76; RESP 18
[2023-05-30 12:09] VITALS: BP 124/79
== END 2023-05-30 12:13 | disposition home or self-care (01) ==
LOC: OR 06:17
PROVIDERS: ATTEND Surgery
DX: K81.1 Chronic cholecystitis (principal); E78.5 Hyperlipidemia, unspecified; J44.9 Chronic obstructive pulmonary disease, unspecified; M19.90 Unspecified osteoarthritis, unspecified site; G43.909 Migraine, unspecified, not intractable, without status migrainosus; K21.9 Gastro-esophageal reflux disease without esophagitis; Z79.51 Long term (current) use of inhaled steroids; Z79.899 Other long term (current) drug therapy; Z98.890 Other specified postprocedural states; Z88.6 Allergy status to analgesic agent; Z87.891 Personal history of nicotine dependence
CPT/HCPCS: 88304

== ENCOUNTER 2023-06-18 13:57 | Emergency (ER) | payer MEDICARE ==
--- NOTE | 2023-06-18 14:33 | ED ---
Back Pain HPI - General Chief Complaint: Back Pain/Injury Stated Complaint: back pain Time Seen by Provider: 06/18/23 14:10 Source: patient, RN notes reviewed Limitations: no limitations - History of Present Illness Initial Comments: This is a 53-year-old male with a history of spinal fusion and reconstructive lumbar surgery who presents to the emergency department chief complaint of lumbar back pain. States that this pain has been consistent after his gallbladder removal surgery o May 29. He denies injury or trauma to his back since this time. He denies saddle anesthesias, bladder or bowel incontinence. He also denies abdominal pain, constipation, diarrhea, nausea, vomiting. Patient has a history of paresthesias over the right foot that is chronic. - Related Data Home Medications Medication Instructions Recorded Confirmed SUMAtriptan succinate [Imitrex] 50 mg PO DIRECTED PRN 12/12/17 05/30/23 Pantoprazole Sodium [Protonix] 40 mg PO QAM 04/16/21 05/30/23 Fenofibrate [Lofibra] 160 mg PO QAM 02/01/23 05/30/23 Gabapentin 600 mg PO TID 04/14/23 05/30/23 Naproxen Sodium [Aleve] 220 mg PO DIRECTED PRN 04/22/23 05/30/23 Previous Rx's Medication Instructions Recorded Cyclobenzaprine [Flexeril] 5 mg PO TID #40 tablet 02/04/23 Acetaminophen Tab [Tylenol] 650 mg PO Q6H #30 tab 05/30/23 Docusate [Colace] 100 mg PO BID #20 capsule 05/30/23 Ibuprofen [Motrin] 600 mg PO Q6HR PRN #40 tab 05/30/23 oxyCODONE HCL [OxyIR] 5 mg PO Q6H PRN 3 Days #10 tab 05/30/23 Allergies Allergy/AdvReac Type Severity Reaction Status Date / Time aspirin AdvReac Nausea Verified 06/18/23 14:08 Review of Systems ROS Statement: Those systems with pertinent positive or pertinent negative responses have been documented in the HPI. ROS Other: All systems not noted in ROS Statement are negative. Past Medical History Past Medical History: GERD/Reflux, Osteoarthritis (OA) Additional Past Medical History / Comment(s): Frequent migraine headaches especially w/stressful situations. Pain and burning down both legs. History of Any Multi-Drug Resistant Organisms: None Reported Past Surgical History: Cholecystectomy Additional Past Surgical History / Comment(s): Right shoulder rotator cuff surgery , vasectomy, bilateral carpal tunnel, robotic laparoscopic repair left inguinal hernia. Back Past Anesthesia/Blood Transfusion Reactions: No Reported Reaction Past Psychological History: Anxiety Smoking Status: Former smoker Past Alcohol Use History: None Reported Past Drug Use History: Marijuana - Past Family History Mother Family Medical History: No Reported History General Exam Limitations: no limitations General appearance: alert, in no apparent distress Head exam: Present: atraumatic, normocephalic, normal inspection Eye exam: Present: normal appearance, PERRL, EOMI. Absent: scleral icterus, conjunctival injection, periorbital swelling ENT exam: Present: normal exam, mucous membranes moist Neck exam: Present: normal inspection. Absent: tenderness, meningismus, lymphadenopathy Respiratory exam: Present: normal lung sounds bilaterally. Absent: respiratory distress, wheezes, rales, rhonchi, stridor Cardiovascular Exam: Present: regular rate, normal rhythm, normal heart sounds. Absent: systolic murmur, diastolic murmur, rubs, gallop, clicks GI/Abdominal exam: Present: soft, normal bowel sounds. Absent: distended, tenderness, guarding, rebound, rigid Back exam: Present: normal inspection, tenderness (left lumbar), paraspinal tenderness, other (previous surgical incisional scar over the mid lumbar back) Neurological exam: Present: alert, oriented X3, CN II-XII intact Psychiatric exam: Present: normal affect, normal mood Skin exam: Present: warm, dry, intact, normal color. Absent: rash Course Vital Signs 06/18/23 06/18/23 14:06 15:08 Temperature 98.4 F Pulse Rate 84 75 Respiratory 20 18 Rate Blood Pressure 135/92 125/87 O2 Sat by Pulse 99 97 Oximetry Medical Decision Making - Medical Decision Making Was pt. sent in by a medical professional or institution (, PA, ELECTRONIC INTEGRATED SYSTEMS MECHANIC, urgent care, hospital, or penitentiary...) When possible be specific @ -No Did you speak to anyone other than the patient for history (EMS, parent, family, police, friend...)? What history was obtained from this source @ -No Did you review nursing and triage notes (agree or disagree)? Why? @ -I reviewed and agree with nursing and triage notes Were old charts reviewed (outside hosp., previous admission, EMS record, old EKG, old radiological studies, urgent care reports/EKG's, penitentiary records)? Report findings @ -Previous orthopedic charts reviewed where patient was diagnosed with patient segment disease and underwent extensive orthopedic reconstructive and disc removal surgery in January 2023. Differential Diagnosis (chest pain, altered mental status, abdominal pain women, abdominal pain men, vaginal bleeding, weakness, fever, dyspnea, syncope, headache, dizziness, GI bleed, back pain, seizure, CVA, palpatations, mental health, musculoskeletal)? @ -Differential Musculoskeletal Muscular strain, contusion, ligament sprain, fracture, arthritis, septic arthritis, bursitis, cellulitis, muscle spasm, nerve compression, DVT, arterial occlusion, herpes zoster, electrolyte abnormality, tumor.... This is not meant to be in all inclusive list EKG interpreted by me (3pts min.). @ -None X-rays interpreted by me (1pt min.). @ -None done CT interpreted by me (1pt min.). @ -None done U/S interpreted by me (1pt. min.). @ -None done What testing was considered but not performed or refused? (CT, X-rays, U/S, labs)? Why? @ -Itching such as CT and x-rays were considered but deferred at this time due to limiting exposure to radiation and there being no neurological deficits on examination. In addition, patient denies recent falls or injury therefore minimal concern for potential hardware dislocation or new injury. What meds were considered but not given or refused? Why? @ -None Did you discuss the management of the patient with other professionals (professionals i.e. , PA, ELECTRONIC INTEGRATED SYSTEMS MECHANIC, lab, RT, psych nurse, social media specialist, field training manager, teacher, sheriffs officer, operations manager station)? Give summary @ -No Was smoking cessation discussed for >3mins.? @ -No Was critical care preformed (if so, how long)? @ -No Were there social determinants of health that impacted care today? How? (Homelessness, low income, unemployed, alcoholism, drug addiction, transportation, low edu. Level, literacy, decrease access to med. care, custodial, rehab)? @ -No Was there de-escalation of care discussed even if they declined (Discuss DNR or withdrawal of care, Hospice)? DNR status @ -No What co-morbidities impacted this encounter? (DM, HTN, Smoking, COPD, CAD, Cancer, CVA, ARF, Chemo, Hep., AIDS, mental health diagnosis, sleep apnea, morbid obesity)? @ -None Was patient admitted / discharged? Hospital course, mention meds given and route, prescriptions, significant lab abnormalities, going to OR and other pertinent info. @ -Discharge. 53-year-old male chief complaint of left lower back pain. On examination patient noted to have tenderness of the left lower back that is nonradiating. Patient is neurologically intact bilaterally. Decision-making discussion at bedside with the patient defer imaging at this time due to no evidence of trauma or recent injury potentially provoking lower back pain. Additionally minimal concern for potential postoperative complications due to left lower back pain not correlating with cholecystectomy. At this time patient was given dose of muscle relaxer. On reevaluation patient states that his pain has not been improved. He he was offered further pain medication and excepted with a IM dose of Dilaudid. Evaluation, patient states that his back pain has somewhat improved after pain medication. At this time patient's states that he will follow-up as scheduled with Dr. Holland as scheduled next week for further evaluation. Questions answered at bedside. Decision making with the patient at bedside will defer further imaging at this time to reduce exposure to radiation, patient is in agreement with this plan. Strict return parameters jg with the patient. Case jg with my attending Dr. Christine Undiagnosed new problem with uncertain prognosis? @ -No Drug Therapy requiring intensive monitoring for toxicity (Heparin, Nitro, Insulin, Cardizem)? @ -No Were any procedures done? @ -No Diagnosis/symptom? @ -Chronic lower back pain Acute, or Chronic, or Acute on Chronic? @ -Acute on chronic Uncomplicated (without systemic symptoms) or Complicated (systemic symptoms)? @ -Uncomplicated Side effects of treatment? @ -No Exacerbation, Progression, or Severe Exacerbation? @ -No Poses a threat to life or bodily function? How? (Chest pain, [place], [place], pneumonia, PE, COPD, DKA, ARF, appy, cholecystitis, CVA, Diverticulitis, Homicidal, Suicidal, threat to staff... and all critical care pts) @ -No Disposition Clinical Impression: Lumbar back pain, Chronic low back pain, Adjacent segment disease Narrative: Please return to the Emergency Department if symptoms worsen or any other concerns. Follow-up with Dr. Holland as scheduled on 06/21 for further evaluation. Disposition: HOME SELF-CARE Condition: Good Instructions (If sedation given, give patient instructions): Acute Low Back Pain (ED) Is patient prescribed a controlled substance at d/c from ED?: No Referrals: Reginald Wesley DO [Primary Care Provider] - 1-2 days Time of Disposition: 16:43
[2023-06-18 14:37] VITALS: TEMP 98.4
[2023-06-18] MEDS: ORPHENADRINE 30 MG/ML 2 ML VIAL IM STA (15:10)
[2023-06-18 15:18] VITALS: BP 125/87; PULSE 75; RESP 18
[2023-06-18] MEDS: HYDROmorphone 1 MG/ML 1 ML SYRINGE IM STA (16:16)
== END 2023-06-18 16:45 | disposition home or self-care (01) ==
LOC: EC 13:57
DX: M51.36 Other intervertebral disc degeneration, lumbar region (principal); F12.90 Cannabis use, unspecified, uncomplicated; Z88.6 Allergy status to analgesic agent; Z87.891 Personal history of nicotine dependence
CPT/HCPCS: 99284; 96372 ×2; J2360; J1170

== ENCOUNTER → 2023-07-07 | Outpatient (CLI) | payer MEDICARE, OTHER ==
--- NOTE | 2023-07-07 12:23 | FL ---
EXAMINATION TYPE: FL UGI air w small bowel DATE OF EXAM: 07/07/2023 COMPARISON: NONE HISTORY: Early satiety TECHNIQUE: A double contrast UGI study is performed with small bowel follow through. A total of 1 m inute and 24 seconds of fluoroscopic time was utilized during procedure and 22 images obtained. Tota l dose area product (DAP) in uGy*m?, mGy*cm? (or similar): Not provided. FINDINGS: [facility] Director image of the abdomen shows postsurgical change involving the lower lumbosacral spine . Diffuse osteopenia. Metallic density in the right upper quadrant nonspecific. The esophagus shows normal motility and emptying into the stomach. No evidence of hiatal hernia or s tricture noted. The stomach shows normal distensibility, peristalsis, and mild thickening of the gastric mucosal fold s. No evidence of any mass or ulcer disease. No significant esophageal reflux was seen during real time performance of this study. The duodenal bulb and sweep are unremarkable. The small bowel study shows normal transit to the colon in less than 60 minutes. There is normal muc osal fold pattern throughout the small bowel. There is no evidence of any stricture or filling defec t noted. The terminal ileum is unremarkable. IMPRESSION: 1. There is mild thickening of the gastric rugal folds which could represent a mild gastritis. Consid er direct visualization\EGD as clinically warranted.
== END | disposition home or self-care (01) ==
LOC: RADFLMAIN 08:11
PROVIDERS: ATTEND Family Medicine
DX: K31.89 Other diseases of stomach and duodenum (principal); R68.81 Early satiety
CPT/HCPCS: 74240; 74248

== ENCOUNTER → 2023-08-01 | Outpatient (CLI) | payer MEDICARE, OTHER ==
--- NOTE | 2023-08-01 08:55 | CT ---
EXAMINATION TYPE: CT lumbar spine wo con CT DLP: 1384.60 mGycm, Automated exposure control for dose reduction was used. DATE OF EXAM: 08/01/2023 7:10 AM COMPARISON: . CLINICAL INDICATION:Male, 53 years old with history of M54.50 LOW BACK PAIN, UNSPECIFIED; PHH, Low ba ck pain unspecified, previous sx TECHNIQUE: Multiple axial images were obtained from the midportion of T11 through the sacroiliac windy nts. Soft tissue and bone windows in coronal and sagittal planes were obtained and reviewed. 3-D ref ormats of the bones were created on a separate workstation and submitted for review. Contrast used: mL of , (None, if empty). Oral contrast used: (None, if empty). FINDINGS: Alignment: There are 5 lumbar type vertebral bodies within normal alignment. Bone: Postsurgical changes with fixation hardware and bowel for L5-S1 and bilateral sacroiliac screws . Hardware appears intact. There is fixed grade 1 anterolisthesis of L5-S1. Severe degeneration yi es of the L1 vertebral body with abnormal morphology anteriorly. There is slight retrolisthesis of L1 on L2. Predominantly changes at L4-L5 thought to be present however streak limits evaluation. Discec alla at L4-L5 and L5-S1. Discs: T12-L1/L1-L2: At least moderate spinal canal stenosis secondary to retrolisthesis of L1 vertebral bod y. No foraminal stenosis of at least moderate at this level. L2-L3: No spinal canal or neural foraminal stenosis is identified. L3-L4: No spinal canal or neural foraminal stenosis is identified. L4-L5: Streak artifact limits evaluation, No spinal canal or neural foraminal stenosis is identified. L5-S1: Streak artifact limits evaluation, No spinal canal or neural foraminal stenosis is identified. Other: None IMPRESSION: 1. No evidence for spinal fracture. 2. Postsurgical changes at L4-S1 with bilateral sacroiliac screws which appear intact. Given streak a rtifact which limits evaluation No evidence of significant spinal canal stenosis on within these leve ls. 3. Moderate spinal canal stenosis at T12-L1 and L1-L2 due to retrolisthesis of L1 and degeneration.
--- NOTE | 2023-08-01 10:16 | MR ---
EXAMINATION TYPE: MR lumbar spine wo con DATE OF EXAM: 08/01/2023 COMPARISON: 04/25/2018 HISTORY: 53-year-old male M54.50, unspecified Lower Back Pain TECHNIQUE: Multiplanar, multisequence images of the lumbar spine were acquired without IV contrast. FINDINGS: Interval postsurgical changes with placement of posterior and interbody lumbar fusion L3-S1 levels. E xtensive metal artifact limits assessment of the neuroforamen and spinal canal at these levels. Fixed grade 2 anterolisthesis L5-S1. Fusion extends down into the pelvis. Sliver of fluid along the posterior midline opposite L3 and L4 measuring 4.0 x 0.4 cm, probably trace chronic postoperative seroma. Larger fluid collection along the laminectomy bed measuring 6.5 cm boom crane operator niocaudal by 2.9 cm wide by 2.4 cm AP. Moderate degenerative disc disease throughout the remainder of the visualized spine with desiccated a nd bulging discs. There is some kyphotic deformity at the L1 level secondary to anterior superior endplate deformity of L1. There is ligamentum flavum thickening and multilevel moderate hypertrophic facet arthropathy also pre sent throughout. Grade 1 retrolisthesis L1-L2 and L3-L4. Increased canal at L3-L4 above the fusion. Conus medullaris appears to terminate normally. However: At T11-T12, there is further disc desiccation and disc bulging with some ligamentum flavum thickening . Changes result in narrowing of the AP canal dimension to 9 mm with abutment of both the dorsal and ventral cord and mild to moderate spinal canal stenosis. At T12-L1, focal kyphosis with posterior broad-based disc bulge and [id number] facet arthropath y. Changes within focal moderate spinal canal stenosis with mild impingement of the cauda equina nerv e roots, similar to prior exam. Mild bilateral neuroforaminal stenosis. At L1-L2, moderate facet arthropathy. Progressive moderate degenerative disc disease with desiccated and bulging disc. Similar grade 1 retrolisthesis. Changes result in moderate focal spinal canal steno sis here along with mild left neural foraminal stenosis. At L2/L3, mild disc bulging and mild attenuation of the thecal sac. Mild facet arthropathy. No signif icant neural foraminal narrowing. Above the fusion at L3-L4, there is progressive moderate to severe hypertrophic facet arthropathy. Ne w grade 1 retrolisthesis and progressive disc desiccation and disc bulging. Mild overall spinal canal stenosis but with moderate bilateral neuroforaminal stenosis now. No prevertebral or paravertebral soft tissue abnormality. IMPRESSION: 1. Interval placement of L3-S1 posterior and interbody fusion. Fusion changes extend down into the pe lvis. Fixed grade 2 anterolisthesis L5-S1. Detailed assessment of the spinal canal and neuroforamen a long the fused levels is limited due to the metal artifact. 2. Chronic superior endplate deformity of L1 with similar kyphosis. 3. Progressive moderate degenerative disc disease and moderate facet arthropathy above the fusion. Si milar grade 1 retrolisthesis L1-L2 but new at L3-L4. 4. Progressive, now mild to moderate spinal canal stenosis at T11-T12, moderate at T12-L1, and modera te at L1-L2 due to progressive disc bulging. 5. Worsening now mild spinal canal stenosis at L3-L4 due to progressive moderate facet arthropathy an d new degenerative grade 1 retrolisthesis and increased disc bulging. Moderate bilateral neuroforamin al stenosis here now. 6. Fluid collection along the laminectomy bed measuring 6.5 x 2.9 x 2.4 cm. Possible chronic postoper ative seroma/hematoma. Correlate to exclude other fluid collection.
== END | disposition home or self-care (01) ==
LOC: RADCTMAIN 06:11
PROVIDERS: ATTEND Orthopaedic Surgery
DX: M43.16 Spondylolisthesis, lumbar region (principal); M43.17 Spondylolisthesis, lumbosacral region; M47.816 Spondylosis without myelopathy or radiculopathy, lumbar region; M48.061 Spinal stenosis, lumbar region without neurogenic claudication; M51.36 Other intervertebral disc degeneration, lumbar region
CPT/HCPCS: 72131; 72148

== ENCOUNTER → 2023-08-19 | Outpatient (CLI) | payer MEDICARE, OTHER ==
[2023-08-19 18:44] LABS: ALT 27 U/L (10-49); AST 29 U/L (14-35); Albumin 4.2 g/dL (3.8-4.9); Albumin/Globulin Ratio 1.83 Ratio (1.60-3.17); Alkaline Phosphatase 80 U/L (41-126); BUN/Creat Ratio 15.42 Ratio (12.00-20.00); Blood Urea Nitrogen 18.5 mg/dL (9.0-27.0); Calcium 9.4 mg/dL (8.7-10.3); Carbon Dioxide 19.4 mmol/L (21.6-31.8); Chloride 105 mmol/L (96-109); Globulin 2.3 g/dL (1.6-3.3); Glucose 75 mg/dL (70-110); Potassium 4.3 mmol/L (3.5-5.5); Sodium 139 mmol/L (135-145); Total Bilirubin 0.3 mg/dL (0.3-1.2); Total Protein 6.5 g/dL (6.2-8.2)
== END | disposition home or self-care (01) ==
LOC: LABWHC1 11:24
PROVIDERS: ATTEND Orthopaedic Surgery
DX: N32.89 Other specified disorders of bladder (principal); K63.89 Other specified diseases of intestine; Z90.49 Acquired absence of other specified parts of digestive tract
CPT/HCPCS: 36415; 80053; 84145; 85652; 86140

== ENCOUNTER → 2023-08-29 | Outpatient (CLI) | payer MEDICARE, OTHER ==
--- NOTE | 2023-08-29 11:04 | CT ---
EXAMINATION TYPE: CT abdomen pelvis w con CT DLP: 1272.40 mGycm, Automated exposure control for dose reduction was used. DATE OF EXAM: 08/29/2023 10:44 AM COMPARISON: CT abdomen pelvis 08/11/2019, CT lumbar spine 08/01/2023, 02/01/2023 CLINICAL INDICATION:Male, 53 years old with history of R10.9 Unspecified abdominal pain; abdominal pa in back pain GB removed 05/30/23 pain has been severe since sx TECHNIQUE: Standard CT of the abdomen and pelvis following the administration of 100 cc of Isovue 3 00 IV contrast material and oral contrast. Coronal and sagittal reformats were performed. FINDINGS: LOWER CHEST: Unremarkable ABDOMEN LIVER: Focal fatty infiltration adjacent to the falciform ligament. GALLBLADDER AND BILE DUCTS: The gallbladder is surgically absent. No biliary duct dilatation. PANCREAS: Unremarkable. SPLEEN: Unremarkable. ADRENAL GLANDS: Unremarkable. KIDNEYS AND URETERS: No evidence of hydronephrosis or renal calculus. The kidneys enhance symmetrical ly. 5 mm calculus identified within the distal right ureter just before the ureterovesical junction. Mild dilatation of the ureter at this level. This is unchanged from prior CT exam 02/01/2023. Contras t is demonstrated within both collecting systems on the delayed phase. PELVIS BLADDER: Unremarkable REPRODUCTIVE: Unremarkable. ABDOMEN & PELVIS STOMACH AND BOWEL: Stomach and duodenum are unremarkable. There is no focal bowel wall thickening or surrounding inflammatory changes. Enteric contrast reaches the rectum. The appendix is within normal limits. No evidence of bowel obstruction. PERITONEUM: No evidence of pneumoperitoneum or free fluid. VASCULATURE: No evidence of aortic aneurysm. MUSCULOSKELETAL: No acute osseous abnormalities. Postsurgical changes with bilateral pedicle screws a nd rods with this fusion cages involving L4-S1 with additional bilateral sacroiliac screws. Hardware creates streak artifact which limits evaluation. However appears intact with appropriate alignment. F ixed grade 1 anterolisthesis of L5 and S1. Slight retrolisthesis of L1 on L2. Severe degenerative sapphire nges of the L1 vertebral body with abnormal morphology anteriorly again demonstrated. LYMPH NODES: No gross evidence for lymphadenopathy. SOFT TISSUE/ABDOMINAL WALL: Small fat filled umbilical hernia. IMPRESSION: 1. Distal right ureteral 5 mm calculus just before the uterovesical junction is in stable position d ating back to 02/01/2023 CT exam. There is focal dilation of the ureter at this level without evidenc e of hydronephrosis suggesting this calculus is nonobstructive at this time. 2. Postsurgical changes of the lumbosacral spine redemonstrated.
== END | disposition home or self-care (01) ==
LOC: RADCTMAIN 08:44
PROVIDERS: ATTEND Internal Medicine Gastroenterology
DX: R10.9 Unspecified abdominal pain (principal); Z98.890 Other specified postprocedural states
CPT/HCPCS: 74177; Q9967

== ENCOUNTER 2023-08-31 10:50 | Day surgery (SDC) | payer MEDICARE, OTHER ==
[2023-08-29 13:23] VITALS: BMI 33.3
[2023-08-31 11:48] VITALS: TEMP 97.1
[2023-08-31] MEDS: LACTATED RINGERS 1,000 ML IV SCH (11:59)
[2023-08-31] MEDS: IV FLUID CONTINUATION 1,000 ML IV ONE (12:00)
[2023-08-31] MEDS ORDERED: PROPOFOL 10 MG/ML 20 ML VIAL IV ONE (12:21)
--- NOTE | 2023-08-31 12:37 | P.PCN ---
Date of Procedure: 08/31/23 Procedure(s) Performed: BRIEF HISTORY: Patient is a 53-year-old pleasant white male scheduled for an elective colonoscopy as a part of evaluation of diffuse abdominal pain with alternating diarrhea and constipation for the last 3 months duration. Patient underwent gallbladder surgery in May of this year since then he has been having worsening abdominal pain mostly in the periumbilical area radiated to the lower abdomen and occasionally to the back. He has diarrhea alternating with constipation. He tried to regulate his bowel movements but continued to have significant persistent abdominal pain. Upper GI small bowel series was unremarkable. PROCEDURE PERFORMED: Colonoscopy with random biopsies. PREOPERATIVE DIAGNOSIS: Severe abdominal pain with alternating diarrhea and constipation. IV sedation per Anesthesia. PROCEDURE: After informed consent was obtained, the patient, was brought into the endoscopy unit. IV sedation was administered by Anesthesia under continuous monitoring. Digital rectal examination was normal. Initially the Olympus CF-160 flexible video colonoscope was then inserted in the rectum, gradually advanced into the cecum without any difficulty. Attempts at intubating the terminal ileum was unsuccessful. Careful examination was performed as the scope was grad ually being withdrawn. Ileocecal valve and the appendiceal orifice were visualized and appeared normal. Prep was excellent. Mucosa of the cecum, ascending colon, transverse colon, descending colon, sigmoid colon, and rectum appeared normal. Retroflexion was performed in the rectum and no lesions were seen. The patient tolerated the procedure well. IMPRESSION: Normal-appearing colon from rectum to cecum with no evidence of colorectal neoplasia. RECOMMENDATIONS: Findings of this examination were discussed with the patient as well as his family. Follow-up the biopsy results. He was advised to have repeat screening colonoscopy in 10 years.. Follow-up in office in 1 to 2 weeks
[2023-08-31 12:41] VITALS: PULSE 88
[2023-08-31 13:03] VITALS: BP 128/86; RESP 15
== END 2023-08-31 13:29 | disposition home or self-care (01) ==
LOC: ORWHC2ENDO 10:50
PROVIDERS: ATTEND Internal Medicine Gastroenterology
DX: K59.00 Constipation, unspecified (principal); E78.5 Hyperlipidemia, unspecified; F41.9 Anxiety disorder, unspecified; F12.20 Cannabis dependence, uncomplicated; K21.9 Gastro-esophageal reflux disease without esophagitis; G43.909 Migraine, unspecified, not intractable, without status migrainosus; Z88.6 Allergy status to analgesic agent; Z87.891 Personal history of nicotine dependence; Z79.84 Long term (current) use of oral hypoglycemic drugs; Z79.899 Other long term (current) drug therapy
CPT/HCPCS: 88305; 45380; J2704

== ENCOUNTER → 2023-10-11 | Outpatient (CLI) | payer MEDICARE, OTHER | END | disposition home or self-care (01) | LOC: LABPAT 14:04 | PROVIDERS: ATTEND Orthopaedic Surgery | DX: Z01.818 Encounter for other preprocedural examination | CPT/HCPCS: 86850; 86900; 86901; 87070 ==

== ENCOUNTER 2023-10-21 05:32 | Inpatient (IN) | payer MEDICARE, OTHER ==
--- NOTE | 2023-10-16 19:11 | P.HPOR ---
History of Present Illness H&P Date: 10/05/23 [facility] [address] [place] [address] P: Patient Name: Wiliam Tarango Age/Sex: 53 / Male : 1970 DATE: Oct 05, 2023 2:00?PM EDT VISIT: FOLLOW UP Approved DEMOGRAPHICS: Height: 54 Weight: 185 lbs. BMI: 31.8 kg/m2 Occupation: Disabled VAS: 10 CHIEF COMPLAINT: * s/p Revision L3-Pelvis decompression and fusion * Progressive LE weakness with paresthesias * Progressive pain with debility HISTORY: * Today, 10/05/23, Wiliam presents for follow up on his MRI of his lumbar spine. He continues to have debilitating pain and progressive LE weakness with pares thesias and pain. He states that he continues to decline so much that he can barely make it up the stairs of his apartment complex to his unit now. He is extremely uncomfortable in the exam room today and his pain is very much not controlled. He states that he went to the ED to be evaluated last week as he was in so much pain, but that they did not treat him very well and he states he will never go back due to this. HIs is visibly distraught at his current condition as she does not know what to do either as she cannot seem to help him with his issues either. She has had to physically help him in and out of bed as well as up and down the stairs. I watched her drop him off at the front door of our building and she had to rock picker his legs and swing them out of the car due to his weakness. He states that he would never do anything to himself, but that at this point he would rather be than go on like this in this amount of pain in his legs and back. He states he is also extremely frustrated as he was better after the second surgery, but that this all started after his cholecystectomy and ever since then he has been essentially steadily declining. Nothing has helped his issues. He has doubled his Gabapentin dosage without help. The Flexeril no longer helps him. He has done Prednisone, Medrol and Valium of which this does not even help his pain. He states pain medications are also a waste as they do not help him either. He states he still has his bowel and bladder faculties but they are definitely different than they have been as it is harder for him to go or stop when he needs to. He denies perineal numbness/tingling. He states his LLE numbness has gotten worse and that he could not feel his cut his toenails the other day. * 09/21/23: The patient returns to the office today for a postoperative check following their revision L3-pelvis decompression and fusion completed on 02/01/2023. The patient reports a severe sharp, stabbing pain across the low back that radiates down into the buttocks and right lower extremity. He states his right leg pain is associated with numbness and tingling. He states his low back and leg symptoms have progressed since the time of his last office visit. He notes his symptoms are severe and debilitating. He notes his quality of life has been significantly affected as he is unable to walk more than 1 to 2 steps due to the severity of his pain. He notes frequent falls due to progressive bilateral leg weakness. He reports that he was doing very well initially following the procedure up until he underwent a cholecystectomy. He notes an onset of this intense low back and leg pain approximately 3 to 4 days after the cholecystectomy. He has trialed all conservative measures listed below with no significant relief. He is not currently taking any pain medications, but utilizes marijuana for relief. Otherwise, the patient denies any f/c/sob/cp, perineal numbness or tingling, bowel or bladder incontinence/retention. Patient is ambulatory independently. The patients' past social, medical, family, surgical history, as well as review of systems, have been reviewed. Please refer to the Neurosurgery History and Physical form that has been scanned into our electronic medical record system. 16 points review of systems completed and as stated in HPI, all other systems reviewed are negative. PREVIOUS TREATMENTS: PAST IMAGING: -YES -XR Lumbar spine -MRI Lumbar spine (Reviewed today) TRAUMA RELATED: -NO WORK RELATED: -NO PT IN LAST 6 MONTHS: -YES -Several rounds of 2x/week for 6 weeks without relief PHYSICIAN DIRECTED HOME EXERCISE PROGRAM: -YES, no significant improvement ACTIVITY MODIFICATION: -YES MEDICATIONS: -YES; using marijuana -Valium, Flexeril, [place], Percocet, Medrol, Prednisone, Gabapentin. All have now failed to control his issues. ALTERNATIVE INTERVENTIONS (CHIROPRACTIC, ACUPUNCTURE, MASSAGE, RICE): -YES; home heat/ice therapies & rest without relief BRACING: -NO INJECTIONS (KEVIN, TF, RFA): -NO -OTHER: NA MEDICAL HISTORY: Past Medical History: REVIEWED STATED IN CHART Past Surgical History: REVIEWED STATED IN CHART Social History: REVIEWED STATED IN CHART * Never smoker * No ETOH use * No illicit substance use * Has been using cannabinoids for pain control Family History: REVIEWED STATED IN CHART Current Medications: REVIEWED STATED IN CHART * See nursing list. Reviewed with pt. PHYSICAL EXAM: Repeated and changes noted below General: AOX3, Visible distress today in his chair., Well hydrate, Well nourished HEENT: No lumps or masses Extremities: No color changes, no pooling INTEGUMENT: Surgical incisions well healed. NO EE. PALPATION: TTP Midline: YES Paracervical: YES Parathoracic: NO Paralumbar: YES SIJ TESTING: YES TTP NO BILATERAL [place] Finger: NEGATIVE BILATERAL FABER4: NEGATIVE BILATERAL Compression: NEGATIVE BILATERAL Distraction:NEGATIVE BILATERAL Thigh thrust: NEGATIVE BILATERAL Hip thrust:NEGATIVE BILATERAL POSTURAL BALANCE: Coronal: BALANCED Sagittal: BALANCED Shoulder height: LEVEL Pelvic Girdle: LEVEL ROM AND APPEARANCE: Neck: UNRESTRICTED Lumbar: RESTRICTED WITH PAIN, severe Shoulders: Symmetrical Hips: Symmetrical Knees: Symmetrical Hands: Symmetrical Feet: Symmetrical VASCULAR STATUS: RUE- 2 LUE-2 RLE-2 LLE-2 Edema: NONE NEUROLOGICAL EXAMINATION: Mental Status: Awake, alert, oriented fully with normal attention, concentration and memory. Fluent appropriate speech. CRANIAL NERVES: I: Olfactory not tested. II: Visual acuity normal, no visual field deficit noted with confrontation. III,IV: Normal pupillary reflexes & intact extraocular movements without nystagmus. V,: Intact symmetrical facial sensation. VII: Intact symmetrical facial motor movementVIII: Hearing intact. IX,X: Intact gag, swallow, & normal voice. XI: Sternocleidomastoid, trapezius function intact. XII: Tongue midline with normal movements. TENSIONING: L'HERMITTE'S SIGN: NEGATIVE SPURLING'S SIGN: NEGATIVE CUBITAL COMPRESSION: NEGATIVE TINEL'S AT WRIST: NEGATIVE SLR:POSITIVEBILATERAL CROSSED SLR: POSITIVE MOTOR EXAM (0-5/5, NT) Muscle appearance: * Symmetrical, without signs of atrophy or dystrophy UPPER EXTREMITY RIGHT LEFT SHOULDER ABDUCTION 5 5 BICEP 5 5 TRICEP 5 5 WRIST EXTENSION 5 5 INTRINSICS 5 5 SMT OPERATOR 5 5 LOWER EXTREMITY HIP FLEXION 4 4 KNEE FLEXION 4 4 KNEE EXTENSION 4 4 DORSIFLEXION 4 3 PLANTAR FLEXION 4 3 EHL 3 4 FHL 3 3 REFLEXES (0-4/2, NT): RIGHT LEFT BICEP 2 2 TRICEP 2 2 BRACHIORADIALIS 2 2 PATELLAR 2 1 ACHILLES 1 1 PATHOLOGICAL REFLEXES: RIGHT LEFT HOFFMANS ABSENT ABSENT CLONUS ABSENT ABSENT BABINSKI ABSENT ABSENT Rectal Tone: INTACT SENSATION (0-4, NT): Intact to light touch and pain sensation to C5-T1 as well as L2-S2 except that noted below Hyperesthesia: PRESENT b/l LE Dermatomal deficit: YES * Levels: L5-S1 b/l with L2-3 b/l paresthesias and hyperesthesia now as well as L1-2 GAIT AND FUNCTIONAL EVALUATION: -Ambulatory aids YES -Wheel chair/Walker -Rombergs test NT -Hand and finger dexterity intact bilaterally? YES -Dysdiadochokinesia examination negative bilaterally? YES -Toe heel walk / heel-toe walk intact while maintaining satisfactory balance? NO -Squatting/straightening w/o assistance to a min of 60 degree knee flexion? NO -Single leg stance: NOT ABLE -Trendelenburg sign NT IMAGING: XRAY Date: Sep 21, 2023 Region:Lumbar Location: [facility] Views: AP/LAT FINDINGS: Images reviewed with patient in office * These demonstrate post surgical L4-Pelvis without evidence of fracture, failure, hardware loosening or detrimental changes. The chronic changes at L1-3 are stable without interval changes at this time. MRI Date: Sep 29, 2023 Region:Lumbar Location: [place] w/wo contrast FINDINGS: Images reviewed with patient in office * These demonstrate post surgical changes from L4-Pelvis with fusion construct in place. Trace L5-S1 anterolisthesis still present. There is foraminal stenosis noted at L5-S1 on the right that is moderate to severe which is new since previous imaging. There is a fluid collection that is becoming compressive at the surgical bed that has expanded since previous MRI imaging. There is new facet cyst formation noted at L3-4 on the right side which is moderately to severely compressive on the central canal. There are continued changes involving the L1-3 region with his congenital vertebral defect causing kyphosis. There are new changes, however, of myelomalacia and cord signal changes at the conus which were not present before. There are more severe compression changes noted at this level as well due to conus draping with increased kyphosis at this congenital segment. There is at least moderate to severe central and b/l foraminal stenosis from L1-S1 noted due to these changes and spondylotic changes which represent acute and progressive changes since previous imaging. IMPRESSION: It was my pleasure to have seen and examined Wiliam. I reviewed the patient's clinical syndrome, physical findings, and imaging studies during the appointment today. It is my impression that the patient has a diagnosis of. 1. s/p Revision L3-pelvis decompression and fusion 2. Progressive Bilateral lower extremity radiculopathy 3. Progressive BLE weakness 4. Progressive Low back pain 5. Progressive debility due to these findings. PLAN: DISCUSSION: * I have discussed the pts sx and imaging findings with him and his today at length. While I am unsure why these changes have happened so acutely and why they happened after his recent abdominal surgery, they have become more of an issue for him and his neurological progression has become unacceptable as well as debilitating for him. With the fluid collection, increased stenosis, ASD at L3-4, Facet cyst formation and further kyphotic changes the conservative options have been exploited and failed. Due to the compressive nature of the fluid collection and his declining neurological status, I feel that we need to revisit this site and debride the wound bed and evacuate the fluid collection on a more URGENT basis. He continues to decline and any further decline may represent more permanent neurological damage if this is not addressed. They agree. He states he needs something done because he does not feel right and needs to get better. I agree. * Appropriate preoperative Labs were ordered, EKG and CXR for workup. * Pt will obtain PCP clearance for surgery URGENTLY * I discussed with the patient and that if he declines any further in regards to his bowel or bladder issues or genital numbness/perineal numbness/tingling etc that he needs to go immediately to the ED and have them contact myself. They understand and agree. * He may continue his medication regiment at this time. * Risks and benefits of surgery were discussed again as in the risk review. He understands and agrees to proceed with the below recommendations. SURGICAL RECOMMENDATION: * URGENT INCISION AND DRAINAGE WITH IRRIGATION AND DEBRIDEMENT OF LUMBAR SPINE WITH DECOMPRESSION AND EVACUATION OF FLUID COLLECTION. FOLLOW UP: POSTOP PLAN AT NEXT VISIT: XRAY PATIENT EDUCATION: Medications Reviewed: YES In our visit today the patient and I have had a chance to go over my understanding of their current condition, the natural course history without intervention and various interventional options. Questions were invited and answered, and the patient wishes to proceed as outlined above. I will be sure to keep you updated after the patient returns here for further follow-up. Thank you again for your referral. Please do not hesitate to contact me if you have any further questions. Signed and authenticated by: 10/05/23 16:48 DO Jaki Carcamo [facility] [address] [id number] This document is confidential, intended only for the named recipient(s) and may contain information that is privileged or exempt from disclosure under applicable law. If you are not the intended recipient(s), you are notified that the dissemination, distribution or copying of this information is strictly prohibited. If you received this message in error, please notify the sender then delete this message. Past Medical History Past Medical History: GERD/Reflux, Hyperlipidemia, Osteoarthritis (OA), Skin Disorder Additional Past Medical History / Comment(s): Frequent migraine headaches especially w/stressful situations. Pain and burning down both legs.resolved after 1 st back surgery, reports some "cuts and Scrapes " on lower extremities History of Any Multi-Drug Resistant Organisms: None Reported Past Surgical History: Back Surgery, Cholecystectomy Additional Past Surgical History / Comment(s): Right shoulder rotator cuff surgery , vasectomy, bilateral carpal tunnel, robotic laparoscopic repair left inguinal hernia. Back surgery x2, colonsocopy egd with dilation , rt wrist release of pressure Past Anesthesia/Blood Transfusion Reactions: No Reported Reaction Smoking Status: Former smoker - Past Family History Mother Family Medical History: No Reported History Medications and Allergies Home Medications Medication Instructions Recorded Confirmed Type SUMAtriptan succinate [Imitrex] 50 mg PO DIRECTED PRN 12/12/17 10/14/23 His tory Pantoprazole Sodium [Protonix] 40 mg PO QAM 04/16/21 10/14/23 History Fenofibrate [Lofibra] 160 mg PO QAM 02/01/23 10/14/23 History Naproxen Sodium [Aleve] 220 mg PO DIRECTED PRN 04/22/23 10/14/23 History Gabapentin 600 mg PO TID 10/14/23 10/14/23 History Terbinafine [LamISIL] 250 mg PO DAILY 10/14/23 10/14/23 History diazePAM 10 mg PO TID PRN 10/14/23 10/14/23 History Allergies Allergy/AdvReac Type Severity Reaction Status Date / Time aspirin AdvReac Nausea Verified 10/14/23 15:18 Physical Examination Osteopathic Statement: *. No significant issues noted on an osteopathic structural exam other than those noted in the History and Physical/Consult.
[~2023-10-21 05:32] MED LIST changes: -DEXAMETHASONE SOD PHOSPHATE 4 MG/ML 1 ML VIAL IV ONE; -HYDROmorphone 0.5 MG/0.5 ML SYRINGE IVP PRN; -LACTATED RINGERS 1,000 ML IV SCH; -LIDOCAINE 1% INJ 10MG/ML (20 ML MDV) ONE; -MIDAZOLAM 2 MG/2 ML VIAL ONE; -PROPOFOL 10 MG/ML 20 ML VIAL IV ONE; -Pre Op ABX Message 1 EACH MISC MISCELLANE ONE; +TRANEXAMIC 1,000 MG/100ML-NACL 1,000 MG in SALINE 1 100ML.BAG IVPB PRN; -fentaNYL (PF) 50 MCG/ML 2 ML AMP IV PRN; -fentaNYL (PF) 50 MCG/ML 2 ML AMP ONE
[2023-10-21] MEDS: IV FLUID CONTINUATION 1,000 ML IV ONE ×5 (05:56→15:13)
[2023-10-21] MEDS: ACETAMINOPHEN TAB 500 MG TAB PO PRN (06:39)
[2023-10-21] MEDS: GABAPENTIN 300 MG CAP PO PRN (06:40)
[2023-10-21] MEDS: ONDANSETRON 4 MG/2 ML VIAL IVP PRN (06:40)
[2023-10-21] MEDS: DEXAMETHASONE SOD PHOSPHATE 4 MG/ML 1 ML VIAL IVP STA (06:41)
[2023-10-21] MEDS: MIDAZOLAM 2 MG/2 ML VIAL IVP ONE (06:45)
[2023-10-21] MEDS: MIDAZOLAM 2 MG/2 ML VIAL IV PRN (06:54)
[2023-10-21] MEDS: fentaNYL (PF) 50 MCG/ML 2 ML AMP IVP ONE (06:55)
[2023-10-21] MEDS ORDERED: HYDROmorphone 0.5 MG/0.5 ML SYRINGE IVP PRN ×2 (07:00→11:56)
--- NOTE | 2023-10-21 07:19 | P.PN ---
Progress Note - Text Progress Note Date: 10/21/23 H&P UPDATE: Spoke with pt and again today. Discussed risks and benefits as well as surgical plan. We discussed evacuation, irrigation and debridment of fluid collection, hardware check with possible hardware revision as well as extension of the construct to an appropriate level depending on purchase of screws, infection status, pt status as well as surgical consensus. The agreed that this was a good plan as did the patient and they were both comfortable proceeding with surgery. Our plan will be to evacuate the fluid collection, debride the surgical bed, check the hardware and explore the fusion as well as decompress the L3-4 level and extend, at least, up to L3-4 due to the stenosis at this level and new retrolisthesis, vacuum disc and unstable features. If we see the need to extend further we will and they are comfortable with this. We also discussed staging this for a later date and they agreed to this as well and stated they trusted my judgement. We bruna make sure to keep the updated during the case. She was grateful. They are willing to proceed as outlined.
[2023-10-21] MEDS ORDERED: MIDAZOLAM 2 MG/2 ML VIAL ONE (07:33)
[2023-10-21] MEDS ORDERED: SUCCINYLCHOLINE CHLORIDE 200 MG/10 ML VIAL IV ONE (07:33)
[2023-10-21] MEDS ORDERED: HYDROmorphone (PF) 1 MG/ML ONE (07:33)
[2023-10-21] MEDS ORDERED: PROPOFOL 10 MG/ML 20 ML VIAL IV ONE (07:33)
[2023-10-21] MEDS ORDERED: fentaNYL (PF) 50 MCG/ML 2 ML AMP ONE (07:33)
[2023-10-21] MEDS ORDERED: NEOSTIGMINE 1 MG/ML 10 ML VIAL ONE (07:33)
[2023-10-21] MEDS ORDERED: PHENYLEPHRINE 10 MG/ML VIAL ONE (07:33)
[2023-10-21] MEDS ORDERED: TRANEXAMIC 1,000 MG/100ML-NACL PREMIX BAG ONE (07:33)
[2023-10-21] MEDS ORDERED: ROCURONIUM 10 MG/ML (5 ML VIAL) IV ONE (07:33)
[2023-10-21] MEDS ORDERED: LIDOCAINE 1% INJ 10MG/ML (20 ML MDV) ONE (07:33)
[2023-10-21] MEDS ORDERED: GLYCOPYRROLATE 0.2 MG/ML 2 ML VIAL ONE (07:33)
[2023-10-21] MEDS: THROMBIN (BOVINE) 5,000 UNIT VIAL TOPICAL ONE (08:58)
[2023-10-21] MEDS: GELATIN SPONGE,ABSORB (LARGE) 1 EACH SPONGE TOPICAL ONE (08:58)
[2023-10-21] MEDS: GENTAMICIN 80 MG in SODIUM CHLORIDE 0.9% IRRIGATIO 3,000 ML IRRIGATION ONE (09:35)
[2023-10-21] MEDS: ceFAZolin 3,000 MG in SODIUM CHLORIDE 0.9% IRRIGATIO 3,000 ML IRRIGATION ONE (09:36)
[2023-10-21] MEDS: VANCOMYCIN 1,000 MG VIAL MISCELLANE ONE (10:56)
[2023-10-21] MEDS ORDERED: HYDROcodone/APAP 5-325MG 1 EACH TAB PO PRN (11:56)
[2023-10-21] MEDS ORDERED: MAG HYDROX/AL HYDROX/SIMETH 30 ML CUP PO PRN (11:56)
[2023-10-21] MEDS ORDERED: ONDANSETRON 4 MG/2 ML VIAL IVP PRN (12:24)
[2023-10-21] MEDS ORDERED: NALOXONE 0.4 MG/ML 1 ML VIAL IV PRN (12:24)
[2023-10-21] MEDS: LACTATED RINGERS 1,000 ML IV SCH (15:12)
[2023-10-21] MEDS: ACETAMINOPHEN TAB 325 MG TAB PO SCH (15:32)
[2023-10-21] MEDS: KETOROLAC 15 MG/ML 1 ML VIAL IVP SCH (15:32)
[2023-10-21] MEDS: GABAPENTIN 300 MG CAP PO SCH (16:19)
[2023-10-21] MEDS: HYDROmorphone PCA 10 MG/50 ML BAG IV PRN (16:54)
--- NOTE | 2023-10-21 17:38 | CT ---
EXAMINATION TYPE: CT lumbar spine wo con CT DLP: 1341.6 mGycm, Automated exposure control for dose reduction was used. DATE OF EXAM: 10/21/2023 5:25 PM COMPARISON: 08/01/2023. CLINICAL INDICATION: Male, 53 years old with history of s/p revision L3-pelvis decompression fusion; PHH, S/P revision L3-pelvis decompression fusion. TECHNIQUE: Multiple axial images were obtained from the midportion of T11 through the sacroiliac windy nts. Soft tissue and bone windows in coronal and sagittal planes were obtained and reviewed. 3-D ref ormats of the bones were created on a separate workstation and submitted for review. Contrast used: mL of , (None, if empty). Oral contrast used: (None, if empty). FINDINGS: Postsurgical changes to the lumbar spine with fixation hardware at L3-S1. Discectomy at L3-L4, L4-L5 and L5-S1. Hardware limits evaluation at these levels. Hardware appears intact. No evidence of fractu re. Bilateral sacroiliac joint fixation screw is also present. Deformity to the L1 vertebral body is unchanged. Postsurgical changes in the soft tissues with foci of gas present. Drainage catheter with tubing in t he surgical bed. Posterior back skin gilmar are present. Scattered atherosclerosis of the arterial vasculature. IMPRESSION: Postsurgical changes without evidence of immediate post operative complication.
[2023-10-21] MEDS ORDERED: SUMAtriptan succinate 50 MG TAB PO PRN (19:16)
[2023-10-21] MEDS ORDERED: diazePAM 5 MG TAB PO PRN (19:16)
[2023-10-22] MEDS: DEXAMETHASONE SOD PHOSPHATE 20 MG in DEXTROSE 5% IN WATER 50 ML IV ONE (05:44)
[2023-10-22] MEDS: CAFFEINE-SODIUM BENZOATE 500 MG in SODIUM CHLORIDE 0.9% 100 ML IVPB ONE (07:01)
[2023-10-22] MEDS: PANTOPRAZOLE 40 MG TABLET PO SCH (07:01)
[2023-10-22] MEDS: MAGNESIUM HYDROXIDE 2,400 MG/30 ML CUP PO PRN (07:15)
[2023-10-22 07:16] LABS: Basophils % (A) 0 %; Eosinophils % (A) 0 %; HCT 41.1 % (39.0-53.0); HGB 13.2 gm/dL (13.0-17.5); Lymphocytes # (A) 2.2 k/uL (1.0-4.8); Lymphocytes % (A) 22 %; MCHC 32.2 g/dL (31.0-37.0); MCV 96.1 fL (80.0-100.0); Mean Platelet Volume 7.1; Monocytes # (A) 0.6 k/uL (0-1.0); Monocytes % (A) 6 %; Neutrophils # (A) 7.2 k/uL (1.3-7.7); Neutrophils % (A) 71 %; Platelet Count 364 k/uL (150-450); RBC 4.28 m/uL (4.30-5.90); WBC 10.2 k/uL (3.8-10.6)
[2023-10-22 07:40] LABS: African American GFR (CKD) 78 (>60 ml/min/1.73 sqM); Anion Gap 5 mmol/L; Blood Urea Nitrogen 13 mg/dL (9-20); Carbon Dioxide 26 mmol/L (22-30); Chloride 108 mmol/L (98-107); Glucose 92 mg/dL (74-99); Non-African American GFR(CKD) 67 (>60 ml/min/1.73 sqM); Potassium 4.2 mmol/L (3.5-5.1); Sodium 139 mmol/L (137-145)
[2023-10-22] MEDS: ASCORBIC ACID 500 MG TAB PO SCH (08:32)
[2023-10-22] MEDS: CHOLECALCIFEROL 125 MCG (5000 IU) TABLET PO SCH (08:32)
[2023-10-22] MEDS: TERBINAFINE 250 MG TAB PO SCH (08:32)
[2023-10-22] MEDS: FENOFIBRATE 160 MG TAB PO SCH (08:32)
--- NOTE | 2023-10-22 11:50 | P.PN ---
Subjective Progress Note Date: 10/22/23 Principal diagnosis: Status post revision [id number] decompression fusion Patient evaluated at bedside, his was present. Patient feels great compared to prior to surgery. He is been ambulating throughout the room, he is urinating with no difficulties. He feels his pain is much improved. He feels his lower extremities are working a lot better. He denies any bowel or bladder incontinence. Objective - Vital Signs Vital signs: Vital Signs Temp 98.6 F 10/22/23 06:54 Pulse 63 10/22/23 06:54 Resp 18 10/22/23 06:54 BP 98/66 10/22/23 06:54 Pulse Ox 97 10/22/23 06:54 FiO2 Intake & Output 10/21/23 10/22/23 10/22/23 18:59 06:59 18:59 Intake Total 2754 390 Output Total 1745 1000 720 Balance 1009 -1000 -330 Weight 85.8 kg Intake: IV 2754 Intake, IV Titration 390 Amount Caffeine-Sodium Benzoate 100 500 mg In Sodium Chloride 0.9% 100 ml @ 102 mls/hr IVPB DAILY ONE Rx#: [id number] Dexamethasone Sod 50 Phosphate 20 mg In Dextrose 5% in Water 50 ml @ 100 mls/hr IV ONCE ONE Rx#:[id number] Lactated Ringers 1,000 ml 240 @ 20 mls/hr IV .Q24H [facility] Rx#:[id number] Output: Drainage 120 120 Lower Medial Back 120 120 Urine 1285 1000 600 Estimated Blood Loss 340 Other: Voiding Method Indwelling Catheter - Exam Gen: AOx3, NAD VSS stable at this time Integument: Postop dressing is in good position and condition, the drain is putting out moderate bloody serosanguineous drainage Palpation: Mild tenderness to the paraspinal region of the lumbar spine ROM: Full range of motion in all major muscle groups of the bilateral upper and lower extremities Sensory Exam: Senory exam to light touch is intact C5-T1 Senosry exam to light touch is intact L2-S1 Motor: 4+/5 strength appreciated in the right lower extremity with hip flexion, knee extension, knee flexion, plantarflexion, dorsiflexion, EHL, FHL 4/5 strength appreciated the left lower extremity with hip flexion, knee extension, knee flexion, plantarflexion, dorsiflexion, EHL, FHL Reflexes: 2/4 in all UE and LE Negative clonus bilaterally - Labs CBC & Chem 7: 10/22/23 06:28 10/22/23 06:28 Labs: Abnormal Lab Results - Last 24 Hours (Table) 10/22/23 10/22/23 Range/Units 06:28 06:28 RBC 4.28 L (4.30-5.90) m/uL Chloride 108 H (98-107) mmol/L Microbiology - Last 24 Hours (Table) 10/21/23 08:30 Gram Stain - Preliminary Back Wound Culture - Preliminary 10/21/23 08:31 Gram Stain - Preliminary Back Wound Culture - Preliminary Assessment and Plan Assessment: Postoperative day #1 status post revision [id number] decompression and fusion Plan: Pain control, continue current regimen Wound care, continue to monitor dressing and drain output DVT prophylaxis, will start heparin 5000 units every 12 later today. Continue EMILY hose and compression stockings Weight-bear as tolerated, utilize walker. No bending, lifting or twisting Encourage incentive spirometer Medical recommendations appreciated Further recommendations to follow Time with Patient: Less than 30
--- NOTE | 2023-10-22 14:24 | P.CONS ---
History of Present Illness - Reason for Consult Consult date: 10/22/23 - History of Present Illness History of present illness: 53-year-old male patient with no significant past medical history was following orthopedic spine who had [id number] decompression and fusion in the past, was following orthopedic for persistent debilitating lower back pain, lower extremity weakness with paresthesias and pain, patient was having trouble ambulating. Patient underwent revision of [id number] decompression and fusion on 10/21/2023. Internal medicine consulted for medical management. Patient reported that he is feeling significantly better since surgery. Patient stated that back pain is significantly better also reported significant improvement in lower extremity weakness. Patient denied any headache, sore throat, productive cough, chest pain, palpitation, nausea vomiting diarrhea constipation abdominal pain dysuria urgency frequency. REVIEW OF SYSTEMS: CONSTITUTIONAL: No fever, no malaise, no fatigue. HEENT: No recent visual problems or hearing problems. Denied any sore throat. CARDIOVASCULAR: No chest pain, orthopnea, PND, no palpitations, no syncope. PULMONARY: No shortness of breath, no cough, no hemoptysis. GASTROINTESTINAL: No diarrhea, no nausea, no vomiting, no abdominal pain. NEUROLOGICAL: No headaches, no weakness, no numbness. HEMATOLOGICAL: Denies any bleeding or petechiae. GENITOURINARY: Denies any burning micturition, frequency, or urgency. MUSCULOSKELETAL/RHEUMATOLOGICAL: Denies any joint pain, swelling, or any muscle pain. ENDOCRINE: Denies any polyuria or polydipsia. The rest of the 14-point review of systems is negative. PHYSICAL EXAMINATION: GENERAL: The patient is A&O x3, NAD HEENT: EOMI, Sclerae anicteric, Moist Mucous membranes Neck: Supple, Non tender, No JVD PULMONARY: Equal breath souds B/L, No wheezing, No crackles. CARDIOVASCULAR: S1, S2 present. No murmurs, rubs, or gallops. ABDOMEN: Soft, nontender, nondistended, normoactive bowel sounds. No guarding or rebound tenderness. MUSCULOSKELETAL: Low backdressing intact, drain in place. No edema, No cyanosis. No clubbing. Normal ROM. Intact peripheral pulses. EXTREMITIES: No cyanosis, clubbing, or pedal edema. NEUROLOGICAL: CN 2-12 grossly intact. No FND Assessment and plan: Status post revision of [id number] decompression and fusion: Continue wound care Drain in place, monitor drain output Pain control, DVT prophylaxis per spine orthopedics Incentive spirometry Bowel/bladder protocol Incentive spirometry DVT prophylaxis Subcutaneous heparin per orthopedic. Monitor vital signs and labs Continue telemetry monitoring Labs and medication were reviewed. Continue same treatment. Resume home medication. Further recommendations as per clinical course of the patient Dictation was produced using [employer] dictation software. please excuse any grammatical, word or spelling errors. Past Medical History Past Medical History: GERD/Reflux, Hyperlipidemia Additional Past Medical History / Comment(s): Frequent migraine headaches especially w/stressful situations. Pain and burning down both legs.resolved since 1st surgery. Scratches on LE's. History of Any Multi-Drug Resistant Organisms: None Reported Past Surgical History: Back Surgery, Cholecystectomy Additional Past Surgical History / Comment(s): Right shoulder replacement surgery , vasectomy, bilateral carpal tunnel, robotic laparoscopic repair left inguinal hernia. Back surgery x3, colonsocopy egd with dilation , rt wrist release of pressure Past Anesthesia/Blood Transfusion Reactions: No Reported Reaction Past Psychological History: Anxiety Smoking Status: Former smoker Past Alcohol Use History: None Reported Additional Past Alcohol Use History / Comment(s): Started smoking at age 16, 1/2 ppd, quit September 2019. Past Drug Use History: Marijuana Additional Drug Use History / Comment(s): Hx heavy Marijuana use daily use, high percentage refrain x 24 hours prior to procedure - Past Family History Mother Family Medical History: No Reported History Medications and Allergies Home Medications Medication Instructions Recorded Confirmed Type SUMAtriptan succinate [Imitrex] 50 mg PO DIRECTED PRN 12/12/17 10/21/23 History Pantoprazole Sodium [Protonix] 40 mg PO QAM 04/16/21 10/21/23 History Fenofibrate [Lofibra] 160 mg PO QAM 02/01/23 10/21/23 History Naproxen Sodium [Aleve] 220 mg PO DIRECTED PRN 04/22/23 10/21/23 History Gabapentin 600 mg PO TID 10/14/23 10/21/23 History Terbinafine [LamISIL] 250 mg PO DAILY 10/14/23 10/21/23 History diazePAM 10 mg PO TID PRN 10/14/23 10/21/23 History Allergies Allergy/AdvReac Type Severity Reaction Status Date / Time aspirin AdvReac Nausea Verified 10/21/23 06:01 Physical Exam Vitals: Vital Signs Temp Pulse Pulse Resp BP Pulse Ox 10/22/23 06:54 98.6 F 63 18 98/66 97 10/22/23 02:00 97.8 F 95 100/69 95 10/21/23 20:00 98.4 F 83 118/79 98 10/21/23 16:11 98.0 F 84 18 108/72 98 10/21/23 15:14 94 16 107/71 100 10/21/23 14:45 101 H 17 105/64 99 Intake and Output 10/21/23 10/22/23 10/22/23 22:59 06:59 14:59 Intake Total 390 Output Total 770 1000 720 Balance -770 -1000 -330 Intake: Intake, IV Titration 390 Amount Caffeine-Sodium Benzoate 100 500 mg In Sodium Chloride 0.9% 100 ml @ 102 mls/hr IVPB DAILY ONE Rx#: [id number] Dexamethasone Sod 50 Phosphate 20 mg In Dextrose 5% in Water 50 ml @ 100 mls/hr IV ONCE ONE Rx#:[id number] Lactated Ringers 1,000 ml 240 @ 20 mls/hr IV .Q24H [facility] Rx#:[id number] Output: Drainage 120 120 Lower Medial Back 120 120 Urine 600 1000 600 Estimated Blood Loss 50 Other: Voiding Method Indwelling Catheter Weight 85.8 kg Results CBC & Chem 7: 10/22/23 06:28 10/22/23 06:28 Labs: Abnormal Lab Results - Last 24 Hours (Table) 10/22/23 10/22/23 Range/Units 06:28 06:28 RBC 4.28 L (4.30-5.90) m/uL Chloride 108 H (98-107) mmol/L Microbiology - Last 24 Hours (Table) 10/21/23 08:30 Gram Stain - Preliminary Back Wound Culture - Preliminary 10/21/23 08:31 Gram Stain - Preliminary Back Wound Culture - Preliminary
[2023-10-22] MEDS: SENNOSIDES-DOCUSATE SODIUM 1 EACH TAB PO PRN (17:48)
[2023-10-23] MEDS: diazePAM 5 MG TAB PO PRN (07:50)
--- NOTE | 2023-10-23 09:50 | P.PN ---
Subjective Progress Note Date: 10/23/23 Principal diagnosis: Status post revision [id number] decompression fusion Patient evaluated at bedside, his was present. Patient continues to do very well with regards to his low back, he is having minimal if any discomfort. The Hemovac drain is putting out moderate bloody serosanguineous fluid, we will keep that in place at this time. He denies any bowel or bladder incontinence. Objective - Vital Signs Vital signs: Vital Signs Temp 97.6 F 10/23/23 00:49 Pulse 89 10/23/23 07:24 Resp 16 10/23/23 07:24 BP 95/59 10/23/23 07:24 Pulse Ox 92 L 10/23/23 07:24 FiO2 Intake & Output 10/22/23 10/23/23 10/23/23 18:59 06:59 18:59 Intake Total 390 Output Total 820 100 Balance -430 -100 Intake: Intake, IV Titration 390 Amount Caffeine-Sodium Benzoate 100 500 mg In Sodium Chloride 0.9% 100 ml @ 102 mls/hr IVPB DAILY ONE Rx#: [id number] Dexamethasone Sod 50 Phosphate 20 mg In Dextrose 5% in Water 50 ml @ 100 mls/hr IV ONCE ONE Rx#:[id number] Lactated Ringers 1,000 ml 240 @ 20 mls/hr IV .Q24H [facility] Rx#:[id number] Output: Drainage 220 100 Lower Medial Back 220 100 Urine 600 Other: Voiding Method Toilet # Voids 2 1 - Exam Gen: AOx3, NAD VSS stable at this time Integument: Postop dressing is in good position and condition, the drain is putting out moderate bloody serosanguineous drainage Palpation: Mild tenderness to the paraspinal region of the lumbar spine ROM: Full range of motion in all major muscle groups of the bilateral upper and lower extremities Sensory Exam: Senory exam to light touch is intact C5-T1 Senosry exam to light touch is intact L2-S1 Motor: 4+/5 strength appreciated in the right lower extremity with hip flexion, knee extension, knee flexion, plantarflexion, dorsiflexion, EHL, FHL 4/5 strength appreciated the left lower extremity with hip flexion, knee extension, knee flexion, plantarflexion, dorsiflexion, EHL, FHL Reflexes: 2/4 in all UE and LE Negative clonus bilaterally - Labs CBC & Chem 7: 10/22/23 06:28 10/22/23 06:28 Labs: Microbiology - Last 24 Hours (Table) 10/21/23 08:31 Gram Stain - Final Back Wound Culture - Final 10/21/23 08:30 Gram Stain - Final Back Wound Culture - Final Assessment and Plan Assessment: Postoperative day #2 status post revision [id number] decompression and fusion Plan: Pain control, continue current regimen Wound care, continue to monitor dressing and drain output DVT prophylaxis, continue heparin. Continue EMILY hose and compression stockings Weight-bear as tolerated, utilize walker. No bending, lifting or twisting Encourage incentive spirometer Medical recommendations appreciated Further recommendations to follow Time with Patient: Less than 30
[2023-10-23] MEDS: HYDROmorphone 1 MG/ML 1 ML SYRINGE IVP PRN (09:51)
--- NOTE | 2023-10-23 14:10 | P.PN ---
Subjective Progress Note Date: 10/23/23 Interval History: 53-year-old male patient with no significant past medical history was following orthopedic spine who had [id number] decompression and fusion in the past, was following orthopedic for persistent debilitating lower back pain, lower extremity weakness with paresthesias and pain, patient was having trouble ambulating. Patient underwent revision of [id number] decompression and fusion on 10/21/2023. Internal medicine consulted for medical management. Patient reported that he is feeling significantly better since surgery. Patient stated that back pain is significantly better also reported significant improvement in lower extremity weakness. Patient denied any headache, sore throat, productive cough, chest pain, palpitation, nausea vomiting diarrhea constipation abdominal pain dysuria urgency frequency. 10/23/2023atient was seen and examined today. at bedside. Patient repo rted significant improvement in back pain and lower extremity weakness and numbness. Patient continues to feel better. RETREAD BUILDER pump has been discontinued. Patient is afebrile, heart rate 89, respiratory rate 16, blood pressure 95/59, saturating 92% on room air. Sitting up in chair, denied any dizziness, chest pain, shortness of breath. Lab from yesterday reviewed, stable. Assessment and plan: Status post revision of E2vmojoe decompression and fusion: Continue wound care Drain in place, monitor drain output Pain control, DVT prophylaxis per spine orthopedics Incentive spirometry Bowel/bladder protocol Incentive spirometry DVT prophylaxis Subcutaneous heparin per orthopedic. Monitor vital signs and labs Continue telemetry monitoring Labs and medication were reviewed. Continue same treatment. Resume home medication. Further recommendations as per clinical course of the patient PHYSICAL EXAMINATION: GENERAL: The patient is A&O x3, NAD HEENT: EOMI, Sclerae anicteric, Moist Mucous membranes Neck: Supple, Non tender, No JVD PULMONARY: Equal breath souds B/L, No wheezing, No crackles. CARDIOVASCULAR: S1, S2 present. No murmurs, rubs, or gallops. ABDOMEN: Soft, nontender, nondistended, normoactive bowel sounds. No guarding or rebound tenderness. MUSCULOSKELETAL: Low backdressing intact, drain in place. No edema, No cyanosis. No clubbing. Normal ROM. Intact peripheral pulses. EXTREMITIES: No cyanosis, clubbing, or pedal edema. NEUROLOGICAL: CN 2-12 grossly intact. No FND REVIEW OF SYSTEMS: CONSTITUTIONAL: No fever or chills. CARDIOVASCULAR: No chest pain, palpitations or syncope. PULMONARY: No shortness of breath, no cough, sore throat. GASTROINTESTINAL: No nausea, vomiting, diarrhea, abdominal pain. : No Dysuria, urgency, frequency. Extremities: No edema. NEUROLOGICAL: No headaches, no weakness, or numbness Dictation was produced using [employer] dictation software. please excuse any grammatical, word or spelling errors. Objective - Vital Signs Vital signs: Vital Signs Temp 97.6 F 10/23/23 00:49 Pulse 89 10/23/23 07:24 Resp 16 10/23/23 07:24 BP 95/59 10/23/23 07:24 Pulse Ox 92 L 10/23/23 07:24 FiO2 Intake & Output 10/22/23 10/23/23 10/23/23 18:59 06:59 18:59 Intake Total 390 Output Total 820 100 Balance -430 -100 Intake: Intake, IV Titration 390 Amount Caffeine-Sodium Benzoate 100 500 mg In Sodium Chloride 0.9% 100 ml @ 102 mls/hr IVPB DAILY ONE Rx#: [id number] Dexamethasone Sod 50 Phosphate 20 mg In Dextrose 5% in Water 50 ml @ 100 mls/hr IV ONCE ONE Rx#:[id number] Lactated Ringers 1,000 ml 240 @ 20 mls/hr IV .Q24H [facility] Rx#:[id number] Output: Drainage 220 100 Lower Medial Back 220 100 Urine 600 Other: Voiding Method Toilet # Voids 2 1 - Labs CBC & Chem 7: 10/22/23 06:28 10/22/23 06:28 Labs: Microbiology - Last 24 Hours (Table) 10/21/23 08:31 Gram Stain - Final Back Wound Culture - Final 10/21/23 08:30 Gram Stain - Final Back Wound Culture - Final
[2023-10-23] MEDS: HEPARIN SODIUM,PORCINE 5,000 UNIT/ML 1 ML VIAL SQ SCH (20:21)
[2023-10-24] MEDS: HYDROcodone/APAP 10-325MG 1 EACH TAB PO PRN (08:25)
[2023-10-24 08:45] LABS: Basophils # (A) 0.03 X 10*3/uL (0.00-0.10); Basophils % (A) 0.3 %; Eosinophils # (A) 0.11 X 10*3/uL (0.04-0.35); HGB 11.1 g/dL (13.0-17.0); Lymphocytes # (A) 3.79 X 10*3/uL (0.90-5.00); Lymphocytes % (A) 34.4 %; MCH 30.8 pg (27.0-32.0); MCHC 32.6 g/dL (32.0-37.0); MCV 94.4 FL (80.0-97.0); Mean Platelet Volume 9.9 FL (9.5-12.2); Monocytes # (A) 0.84 X 10*3/uL (0.20-1.00); Monocytes % (A) 7.6 %; NRBC Per 100 WBC 0 X 10*3/uL (0.00-0.01); Neutrophils % (A) 56.3 %; Platelet Count 297 X 10*3/uL (140-440); RDW 13.6 % (11.5-14.5); WBC 11.01 X 10*3/uL (4.50-10.00)
[2023-10-24] MEDS: CYCLOBENZAPRINE 5 MG TAB PO PRN (08:47)
[2023-10-24 08:58] LABS: BUN/Creat Ratio 9.54 Ratio (12.00-20.00); Blood Urea Nitrogen 12.4 mg/dL (9.0-27.0); Calcium 8.5 mg/dL (8.7-10.3); Carbon Dioxide 24.3 mmol/L (21.6-31.8); Chloride 110 mmol/L (96-109); Glucose 84 mg/dL (70-110); Potassium 3.9 mmol/L (3.5-5.5); Sodium 142 mmol/L (135-145)
--- NOTE | 2023-10-24 09:46 | P.PN ---
Subjective Progress Note Date: 10/24/23 Principal diagnosis: s/p Revision L3-Pelvis decompression and fusion Progressive LE weakness with paresthesias Progressive pain with debility Patient seen and examined this morning. Patient is sitting in the chair at bedside. He states that he has been ambulatory within room to restroom and tolerating activity well. He states that his pain is managed on current regimen. Patient does have a LSO brace at bedside, we are recommending a TLSO at this time and prescription has been placed in his chart. Surgical incision to the lumbar spine, edges are well-approximated with sutures intact. Hemovac drain has been removed and new dressing applied. Patient does report that he feels more stable in his spine when ambulating and has had improvement in his low back pain. Patient is looking forward to going home later today. Objective - Vital Signs Vital signs: Vital Signs Temp 97.9 F 10/24/23 02:00 Pulse 91 10/24/23 02:00 Resp 16 10/23/23 20:21 BP 113/74 10/24/23 02:00 Pulse Ox 94 L 10/24/23 02:00 FiO2 Intake & Output 10/23/23 10/24/23 10/24/23 18:59 06:59 18:59 Output Total 210 Balance -210 Output: Drainage 210 Lower Medial Back 210 Other: # Voids 2 2 # Bowel Movements 2 - Exam Physical Examination General: The patient is awake and alert, in no acute distress Skin: Skin is warm and dry with no obvious rashes or lesions. Surgical incision to the lumbar spine, edges are well-approximated with sutures intact. Hemovac drain has been removed and new dressing applied. Eye: Pupils are equal, round and reactive to light, extra-ocular movements are intact; there is normal conjunctiva bilaterally. Neck: The neck is supple, there is no tenderness and ROM intact. Cardiovascular: There is a regular rate and rhythm. No murmur, rub or gallop is appreciated. Respiratory: Respirations are non-labored, breath sounds are equal. Gastrointestinal: Soft, non-distended, non-tender abdomen. Back: There is no tenderness to palpation in the midline, paralumbar, parathoracic or buttocks region. There is no obvious deformity . Musculoskeletal: ROM limited secondary to pain and stiffness from surgical procedure. Right: Shoulder abduction 5/5, elbow flexors 5/5, wrist dorsiflexors 5/5. finger abductor 5/5, newcomer hostess 5/5, hip flexor 4/5, knee flexor 5/5, ankle dorsiflexor 5/5, ankle plantarflexion 5/5 and extensor hallucis 5/5. Left: Shoulder abduction 5/5, elbow flexors 5/5, wrist dorsiflexors 5/5. finger abductor 5/5, newcomer hostess 5/5, hip flexor 4/5, knee flexor 5/5, ankle dorsiflexor 5/5, ankle plantarflexion 5/5 and extensor hallucis 5/5. Neurological: CN 2-12 intact. There are no obvious motor or sensory deficits. Movement and coordination equal and intact. Sensory exam to light touch intact C5-T1 and intact from L2-S1. Reflexes 2/4 in bilateral upper and lower extremities. Negative Hoffmans, babinski, and clonus signs. Psychiatric: Cooperative, appropriate mood & affect, normal judgment. - Labs CBC & Chem 7: 10/24/23 04:52 10/24/23 04:52 Labs: Abnormal Lab Results - Last 24 Hours (Table) 10/24/23 10/24/23 Range/Units 04:52 04:52 WBC 11.01 H (4.50-10.00) X 10*3/uL RBC 3.60 L (4.40-5.60) X 10*6/uL Hgb 11.1 L (13.0-17.0) g/dL Hct 34.0 L (39.6-50.0) % Chloride 110 H (96-109) mmol/L BUN/Creatinine Ratio 9.54 L (12.00-20.00) Ratio Calcium 8.5 L (8.7-10.3) mg/dL Microbiology - Last 24 Hours (Table) 10/21/23 08:31 Gram Stain - Final Back Wound Culture - Final 10/21/23 08:30 Gram Stain - Final Back Wound Culture - Final Assessment and Plan Assessment: Postop day 3: Revision [id number] decompression and fusion Plan: -Appreciate process consultant and team management. -Activity: Ambulate QID, OOB all meals, up and about, limit lifting bending twisting to less than 5 lbs. Use walker or cane if needed for stability. -Daily PT/OT, increase ambulation strength and balance. -Brace when up and about, not needed in bed or chair -Prescription for TLSO brace has been placed in chart -Pain control: Adequate at this time -Meds: reviewed -GI ppx: senna, Miralax -DVT PPX: Heparin -Hygiene: Shower today. Maintain dressing clean and dry. Meticulous cleaning after BMs away from the incision site -Encourage IS 10x/hr -Dispo: Anticipate discharge home later today with homecare *I reviewed and discussed this case with my attending Dr. Holland, whom has reviewed this chart and films and is in agreement with assessment and plan of care as outlined above. I have personally seen and examined the patient, performed the documentation and the assessment and plan as written. Number of minutes spent on the visit: 20m.
[2023-10-24 09:55] VITALS: TEMP 97.6
--- NOTE | 2023-10-24 10:43 | P.DS ---
Providers Date of admission: 10/21/23 05:32 Expected date of discharge: 10/24/23 Attending physician: Hilario Holland DO Consults: 10/21/23 16:36 Consult Physician Routine Consulting Provider: Salma Raines Reason/Comments: medical management Do you want consulting provider notified?: Yes Primary care physician: Reginald [facility] Hospital Course: Hospital Course: The patient was evaluated preoperatively and found to have the diagnosis of post-op compressive seroma. They underwent appropriate preoperative care and were willing to undergo the intended procedure. They underwent a successful Revision L3-Pelvis decompression and fusion were recovered appropriately and sent to the floor. While on the floor they worked with physical therapy, occupational therapy and nursing to enhance their recovery experience. Their pain was well controlled through their stay and they were started on appropriate medications, DVT ppx modalities, activity and dietary needs. Daily labs were monitored closely, and transfusions were only used when necessary. Medicine as well as other consulting services have made their input and have helped with our team approach and multidisciplinary care. PT milestones have been met and passed and they have made the recommendation of home for this patient and treating providers agree with this care path. The patient will be discharged home with appropriate medications, instructions and follow-up information and in stable condition. Patient Condition at Discharge: Good Plan - Discharge Summary Discharge Rx Participant: No New Discharge Prescriptions: New Cyclobenzaprine [Flexeril] 5 mg PO TID PRN #30 tablet PRN Reason: Muscle Spasm Gabapentin 300 mg PO TID #90 cap Sennosides/Docusate Sodium [Senna Plus 8.6-50 mg Tablet] 1 each PO DAILY PRN #20 tab PRN Reason: Constipation cefaDROXiL [Duricef] 500 mg PO Q12HR #10 cap oxyCODONE-APAP 5-325MG [Percocet 5-325 mg] 1 tab PO Q4HR PRN #28 tab PRN Reason: Pain No Action SUMAtriptan succinate [Imitrex] 50 mg PO DIRECTED PRN PRN Reason: Migraine Headache Terbinafine [LamISIL] 250 mg PO DAILY diazePAM 10 mg PO TID PRN PRN Reason: Pain Pantoprazole Sodium [Protonix] 40 mg PO QAM Fenofibrate [Lofibra] 160 mg PO QAM Naproxen Sodium [Aleve] 220 mg PO DIRECTED PRN PRN Reason: Pain Gabapentin 600 mg PO TID Discharge Medication List SUMAtriptan succinate [Imitrex] 50 mg PO DIRECTED PRN 12/12/17 [History] Pantoprazole Sodium [Protonix] 40 mg PO QAM 04/16/21 [History] Fenofibrate [Lofibra] 160 mg PO QAM 02/01/23 [History] Naproxen Sodium [Aleve] 220 mg PO DIRECTED PRN 04/22/23 [History] Gabapentin 600 mg PO TID 10/14/23 [History] Terbinafine [LamISIL] 250 mg PO DAILY 10/14/23 [History] diazePAM 10 mg PO TID PRN 10/14/23 [History] Cyclobenzaprine [Flexeril] 5 mg PO TID PRN #30 tablet 10/24/23 [Rx] Gabapentin 300 mg PO TID #90 cap 10/24/23 [Rx] Sennosides/Docusate Sodium [Senna Plus 8.6-50 mg Tablet] 1 each PO DAILY PRN #20 tab 10/24/23 [Rx] cefaDROXiL [Duricef] 500 mg PO Q12HR #10 cap 10/24/23 [Rx] oxyCODONE-APAP 5-325MG [Percocet 5-325 mg] 1 tab PO Q4HR PRN #28 tab 10/24/23 [Rx] Follow up Appointment(s)/Referral(s): Reginald Wesley DO [Primary Care Provider] - 1 Week Hilario Holland DO [Doctor of Osteopathic Medicine] - 2 Weeks Jong Whiting [NON-STAFF] - As Needed (TLSO brace ) Activity/Diet/Wound Care/Special Instructions: Spine Discharge and Recovery Instructions Date of Surgery: 10/21/2023 Procedure: Revision [id number] decompression and fusion Medications: See medication list All medication refills should be obtained through your primary care doctor or your clinic spine surgeon. Please discuss prescription refills at your follow up appointment. Do not call the hospital for medication refills. Activity: Encourage ambulation with assist of walker, Up and about 6-8x daily PT/OT daily work on balance, strength and mobility Up in chair with all meals Shower daily Brace: Use brace when up and about, do not wear in bed or shower Dressing: Leave your dressing in place for a total of 3 days post operatively. Then you may remove your dressing and leave open to air. Keep the area clean and if not able to keep area clean, then cover with sterile gauze and tape. Showering: You may shower 3 days after your procedure allowing soap and water to run over incision. Do not scrub. Do not soak. Blot dry. Follow up: Please confirm a follow up appointment with your surgeon 2 weeks post operatively. Please make an appointment to follow up with your PCP in 1-2 weeks after surgery for evaluation '3 phase, 3-week plan' POST OP WEEKS 1-3 1. Lifting/carrying/pushing/pulling limited to less than 5 pounds. 2. Do not sit for longer than 15 minutes at one time. Get up and walk around. Prolonged sitting is NOT advised. If you lay down, see if you can tolerate laying down on you front (belly side) 3. Walk for periods of 15 minutes = 1 mile but no longer; do it multiple times times each day. 4. Ice your low back after activity. POST OP WEEKS 3-6 1. Lifting limited to less than 20 pounds. 2. Do not sit for longer than 30 minutes at a time. Frequently change positions. Use a sit-to stand workstation or take frequent breaks from sitting if you have returned to work. 3. Walk for 30 minutes each day. If possible, do these three or more times a day POST OP WEEKS 6+ At your 6-week appointment we will give you a physical therapy referral to focus on a core stabilization and strengthening program. You should also work on leg & buttock strengthening, hamstring & quadriceps stretching, and continue a low impact aerobic activity program such as swimming, walking, or riding a stationary bicycle. During the initial 6 weeks after your surgery, you are at the highest risk of re-injuring your spine. You should generally avoid BLT's (bending, lifting and twisting combination motions) and follow the above guidelines to reduce the chance of reinjury. You can anticipate post op appointments in our office at approximately 3 weeks and 6 weeks after your surgery. INCISION CARE: If your incision is not draining you do NOT need to cover it with a dressing. Keep your incision clean, dry and intact. In most cases, we apply skin glue, gilmar or sutures to the incision at the time of surgery. This will be like a crust or have the appearance of a scab and will fall off in time on its own. The stitches or gilmar need to be removed at 3 weeks post op appointment. You may begin to shower 3 days after surgery (this allows the glue to modi well). However, please avoid scrubbing the incision site or peeling off any of the skin glue. This will ensure optimal healing of your incision. Also, during this time avoid soaking the incision area in water - this includes swimming pools, hot tubs or baths. No ointments, lotions or o ils on the incision until your surgeon allows. Leave gilmar, sutures or glue in place. Neurological dysfunction that comes on suddenly can also be a sign of a stroke. Below some common symptoms of a stroke are listed: B - balance difficulty such as sudden onset walking or leaning to one side - NEW E - eye problem such as sudden double vision or trouble seeing on one side - NEW F - Facial weakness or numbness on one side - NEW A - Arm or leg weakness or numbness on one side - NEW S - Slurred speech or difficulty with word finding - NEW T - Time is BRAIN! Call 911 as soon as you recognize these symptoms Diet: Consume a regular diet rich in vegetables and lean protein such as chicken or fish. You should consume in a ratio of approximately 20% fats|40% carbohydrates|40%protein. Vegetables, sweet potatoes, brown rice or quinoa are examples of good carbohydrates. Chips, white bread, cookies and sweets/sugar are examples of bad carbohydrates. Limit your bad carbs, go wild with good carbs. "Life's Simple 7" Guidelines as per [place] [employer] These will help you reclaim your life after surgery and batter mixer helper in your recovery, keeping in mind your restrictions. (1) Get Active. Physical activity can help people lose weight, control high blood pressure and cholesterol, feel emotionally better, and sleep better. (2) Control Cholesterol. Avoid a diet high in saturated fat, trans fat, & cholesterol. Limit whole milk & cream, ice cream, butter, egg yolks, processed meats (like sausage and hot dogs), and fatty meats. Choose healthy foods that are low in saturated fat, trans fat and cholesterol which include: Fruits and vegetables, fiber rich grain products (like whole grain pasta and brown rice), lean meat such as chicken, fish, nuts, seeds, and legumes. (3) Eat Better. Eat small portions. Shop at the grocery with a list and do not stray from it. Tips for a healthy diet include: Limit sodium intake to less than 1500mg daily, avoid prepackaged, processed, and fast foods, choose a diet rich in fruits, vegetables, and whole grain, high fiber foods, and limit saturated & cholesterol in your diet. (4) Manage Blood Pressure. If you have high blood pressure, you should have a cuff at home so that you can check your blood pressure regularly. Be sure you have a good cuff. An arm one is generally better than a wrist one. Bring the cuff to a doctor's appointment to validate that the measurements that your cuff are taking are accurate. Take your blood pressure twice daily when you are sitting down and relaxing. Record the numbers in a log and bring this log with you to your doctors' appointments. (5) Lose Weight if your BMI is above 25. A healthy BMI is between 19-25. To calculate Your BMI, you may use a Standard BMI Calculator on the NIH BMI website: <www.nhlbi.nih.gov/guidelines/obesity/BMI/bmicalc.htm>. Weigh oneself daily. If you are overweight, set a goal to lose weight. A pound a week loss if needed is a good target. (6) Reduce Blood Sugar. Limit foods and liquids with "added sugars." (Added sugars include sucrose, fructose, glucose, maltose, dextrose, high fructose corn syrup, corn syrup, concentrated fruit juice and honey). (7) Stop Smoking. If you smoke, quitting smoking is one of the best things that you can do for your health. Smoking increases your risk of heart attack, stroke, and peripheral vascular disease, which is a build-up of plaque in your arteries. Please discard all the cigarettes and lighters in your house. Have a plan for what you will do when you have the urge to smoke. Direct and second- hand smoke shortens your life as well as the lives of your family, friends and others around you. For your health and the health of those around you, please consider quitting! Proper Bending Body Mechanics: Maintain a wide stance with one foot slightly in front of the other. Keep your back straight. Bend utilizing the strength in your hips and knees. Do not bend at the waist. Maintain the lifted object at your waist-level close to your body. Avoid lifting weight that causes immediately pain or pain anywhere in the body afterwards. Smoking/Nicotine If there was ever one thing that you could do to increase your overall health, decrease your risk of cardiovascular problems by about 39% the second you make the choice, it is to STOP SMOKING. Your body's most instant gratification is the second you stop smoking. We have all heard the studies, read the articles but it is true, smoking is extremely bad for your overall health, and moreover it is detrimental to your bone health. Nicotine, IN ANY FORM, kills bone cells, prevents your body from healing fractures, and significantly prolongs healing after surgery. In spine surgery specifically, it increases your risk of not healing your bones to create a fusion and increases your risk of having a revision surgery due to this up to 60%. I know it is hard. I know it feels impossible. But there are ways. Take control of your life. We are here to help you through it. And when you are ready, ask us and we can direct you to help if you desire. Use the START Plan to Quit Smoking (please visit the Helpguide.org website listed below for more information): S = Set a quit date. Choose a date within the next 2 weeks, so you have enough time to prepare without losing your motivation to quit. If you mainly smoke at work, quit on the weekend, so you have a few days to adjust to the change. T = Tell family, friends, and co-workers that you plan to quit. Let your friends and family in on your plan to quit smoking and tell them you need their support and encouragement to stop. Look for a quit stanton who wants to stop smoking as well. You can help each other get through the rough times. A = Anticipate and plan for the challenges you'll face while quitting. Most people who begin smoking again do so within the first 3 months. You can help yourself make it through by preparing ahead for common challenges, such as nicotine withdrawal and cigarette cravings. R = Remove cigarettes and other tobacco products from your home, car, and work. Throw away all your cigarettes (no emergency pack!), lighters, ashtrays, and matches. Wash your clothes and freshen up anything that smells like smoke. Shampoo your car, clean your drapes and carpet, and steam your furniture. T = Talk to your doctor about getting help to quit. Your doctor can prescribe medication to help with withdrawal and suggest other alternatives. If you can't see a doctor, you can get many products over the counter at your local pharmacy or grocery store, including the nicotine patch, nicotine lozenges, and nicotine gum. Resources for Quitting Smoking: <https://www.[place].gov/documents/[facility]/Quit_Tobacco_Resources_for_patients_313 480_7.pdf> Supplementation: Take recommended dosages of Vitamin D and Calcium to help fortify your bones and help them to heal. See your health maintenance packet for dosages and recommended levels. DVT/VTE prophylaxis: You will be given compression stockings from the hospital. Wear these daily for the first two weeks after surgery. You may take them off at night. You may be prescribed a medication to help thin your blood. Take this as directed. If you are not prescribed this medication, early and frequent ambulation has been shown to be the best prophylaxis to deep vein thrombosis and sequelae related to this event. Discharge Disposition: HOME SELF-CARE
[2023-10-24] MEDS: oxyCODONE-APAP 5-325MG 1 EACH TAB PO PRN (11:47)
[2023-10-24 15:56] VITALS: BP 98/63; PULSE 86; RESP 18
--- NOTE | 2023-10-25 02:16 | PN ---
PROGRESS NOTE DATE OF SERVICE: 10/24/2023 SUBJECTIVE: This is a 53-year-old gentleman admitted after back surgery, is improving significantly. No chest pain. No palpitation. OBJECTIVE: VITAL SIGNS: Pulse is 92, blood pressure 112/77, respirations 17. CHEST: Clear to auscultation. CARDIOVASCULAR: S1, S2. ABDOMEN: Soft. LABORATORY DATA: WBC 11.1. ASSESSMENT: 1. Status post revision L3 with decompression and fusion. 2. Elevated WBC, possibly reactive. 3. Gastroesophageal reflux disease. RECOMMENDATIONS: Recommend to continue current management and continue symptomatic treatment. Pain management. DVT prophylaxis per Orthopedic Surgery. Closely follow with Primary Physician after discharge. MMODL / IJN: [id number] /
--- NOTE | 2023-10-28 20:11 | P.OP ---
Date of Procedure: 10/21/23 Preoperative Diagnosis: Current Active Problems Lumbar surgical wound fluid collection (Acute) Pseudarthrosis after fusion or arthrodesis (Acute) Intervertebral disc disorders with radiculopathy, lumbosacral region (Acute) Intervertebral disc disorders with radiculopathy, lumbar region (Acute) Spinal stenosis, lumbar region with neurogenic claudication (Acute) Muscle wasting and atrophy, not elsewhere classified, left lower leg (Acute) Other spondylosis with myelopathy, lumbar region (Acute) Other spondylosis with radiculopathy, lumbosacral region (Acute) Other spondylosis with radiculopathy, lumbar region (Acute) Sciatic radiculitis (Acute) Postoperative Diagnosis: Current Active Problems Lumbar surgical wound fluid collection (Acute) Pseudarthrosis after fusion or arthrodesis (Acute) Intervertebral disc disorders with radiculopathy, lumbosacral region (Acute) Intervertebral disc disorders with radiculopathy, lumbar region (Acute) Spinal stenosis, lumbar region with neurogenic claudication (Acute) Muscle wasting and atrophy, not elsewhere classified, left lower leg (Acute) Other spondylosis with myelopathy, lumbar region (Acute) Other spondylosis with radiculopathy, lumbosacral region (Acute) Other spondylosis with radiculopathy, lumbar region (Acute) Sciatic radiculitis (Acute) Procedure(s) Performed: * 32952: ARTHRODESIS, COMBINED POSTERIOR OR POSTEROLATERAL TECHNIQUE WITH POSTERIOR INTERBODY TECHNIQUE INCLUDING LAMINECTOMY AND/OR DISCECTOMY SUFFICIENT TO PREPARE INTERSPACE (OTHER THAN FOR DECOMPRESSION), SINGLE INTERSPACE, LUMBAR; L3-4 * 54055/50: REVISION ARTHRODESIS, BILATERAL SACROILIAC JOINT, OPEN, INCLUDES OBTAINING BONE GRAFT, INCLUDING INSTRUMENTATION, WHEN PERFORMED * 64331: LAMINECTOMY, FACETECTOMY, OR FORAMINOTOMY (UNILATERAL OR BILATERAL WITH DECOMPRESSION OF SPINAL CORD, CAUDA EQUINA AND/OR NERVE ROOT[S] [EG, SPINAL OR LATERAL RECESS STENOSIS]), DURING POSTERIOR INTERBODY ARTHRODESIS, LUMBAR; SINGLE VERTEBRAL SEGMENT; L3-4 * 55647: POSTERIOR SEGMENTAL INSTRUMENTATION (EG, PEDICLE FIXATION, DUAL RODS WITH MULTIPLE HOOKS AND SUBLAMINAR WIRES); 3 TO 6 VERTEBRAL SEGMENTS; L3- PELVIS * 03097: REVISION PELVIC FIXATION (ATTACHMENT OF CAUDAL END OF INSTRUMENTATION TO PELVIC BONY STRUCTURES) OTHER THAN SACRUM; BILATERAL S2AI SCREW FIXATION * 84306: REMOVAL OF POSTERIOR SEGMENTAL INSTRUMENTATION; L4 BILATERAL SCREWS AND PELVIC B/L SCREWS * INCISION AND DRAINAGE OF LUMBAR SPINE SKIN SOFT TISSUE AND BONE [id number] CM WITH SEROMA EVACUACAUATION USING SKIN KNIFE FOR SKIN REMOVAL, RONGURE AND KERRISON RONGURE FOR DEEP DEBRIDEMENT OF BONE AND SOFT TISSUES; CURETTE FOR REMOVAL AND DEBRIDEMENT OF NECROTIC TISSUES. * 27706: INSERTION OF INTERBODY BIOMECHANICAL DEVICE(S) (EG, SYNTHETIC CAGE, MESH) WITH INTEGRAL ANTERIOR INSTRUMENTATION FOR DEVICE ANCHORING (EG, SCREWS, FLANGES), WHEN PERFORMED, TO INTERVERTEBRAL DISC SPACE IN CONJUNCTION WITH INTERBODY ARTHRODESIS, EACH INTERSPACE; LUMBAR 3-4 * 04790: ARTHRODESIS, COMBINED POSTERIOR OR POSTEROLATERAL TECHNIQUE WITH POSTERIOR INTERBODY TECHNIQUE INCLUDING LAMINECTOMY AND/OR DISCECTOMY SUFFICIENT TO PREPARE INTERSPACE (OTHER THAN FOR DECOMPRESSION), SINGLE INTERSPACE, LUMBAR; EACH ADDITIONAL INTERSPACE (LIST SEPARATELY IN ADDITION TO CODE FOR PRIMARY PROCEDURE); REVISION L4-S1 * 36879 : LAMINECTOMY, FACETECTOMY, OR FORAMINOTOMY (UNILATERAL OR BILATERAL WITH DECOMPRESSION OF SPINAL CORD, CAUDA EQUINA AND/OR NERVE ROOT[S] [EG, SPINAL OR LATERAL RECESS STENOSIS]), DURING POSTERIOR INTERBODY ARTHRODESIS, LUMBAR; EACH ADDITIONAL SEGMENT; L4-5 * 72134: EXPLORATION OF SPINAL FUSION; L4-S1 DUE TO SEROMA WITH PSEUDOARTHROSIS * 67620: STEREOTACTIC COMPUTER-ASSISTED (NAVIGATIONAL) PROCEDURE; SPINAL; MATTY NAVIGATION FOR SCREW PLACEMENT AND LAMINECTOMY NAVIGATION * USE OF IONM ALL SCREWS TESTING >20mA * CPTMOD 22: THIS CASE TOOK 75% LONGER THAN EXPECTED DUE TO CORMORBID CONDITIONS, EXTENT OF LUMBAR DISEASE AND HIGH TECHNICALITY OF THE CASE. Implants: MATTY EVEREST RODS AND SCREWS SI BONE B/L [place] PELVIC SCREWS GLOBUS SABLE CAGE X1 AUTOGRAFT, DBM, BOATS, CONTOUR, ARTHROCELL STIMULAN BEADS DEEP Anesthesia: GETA Surgeon: Hilario Holland Director Oracle #1: Misael Guzmán (WAS PRESENT AND ASSISTED WITH THE CASE FROM SCREW PLACMENT TO DRESSING PLACEMENT. ) Estimated Blood Loss (ml): 250 IV fluids (ml): 3,000 Urine output (ml): 500 Pathology: none sent Condition: stable Disposition: PACU Indications for Procedure: 53 yo male presents with his for incision and drainage with evacuation of fluid collection and revision of L3-Pelvis decompression and fusion due to continued and severe LE pain, weakness that is progressive and imaging that shows continued fluid collection with increase in the fluid collection as well as loosening of the L4 screws b/l. We have discussed at length different surgical options for the patient as well as outcomes and possible risks and benefits. Ultimately, the pt has elected to undergo revision of his lumbar spine with washout. They understand risks and are willing to assume these and all the risks of surgery. They are willing to proceed. Description of Procedure: REVISION L3-PELVIS DECOMPRESSION AND FUSION WITH HARDWARE REVISION AND INTERBODY FUSION The patient was seen and examined in the preoperative area. All preoperative protocols were followed. Informed consent was obtained, risks and benefits of the procedure were discussed at length. Risks including bleeding infection damage to the surrounding tissue and risk of reoperation were discussed with the patient. Risk of anesthesia up to and including was discussed with the patient. These are outlined in the risk review. They were willing to accept these risks and all the risks of surgery. The patient was given a weight-based dose of antibiotics in the form of 2 g Ancef. The patient was seen and evaluated by the anesthesia team who deemed them fit for surgery. The site was marked, the patient was willing to proceed with the procedure. The patient was transferred to the operative suite by the Department of anesthesia. They were then drifted off to sleep by the department anesthesia and GETA was performed. The patient tolerated this well. Rosa catheter was placed by nursing staff, a-traumatically. Once confirmation of lines and ventilation the patient was transferred to a prone Micah table very carefully. All bony prominences including wrists, elbows, axilla, chest, hips, and thighs, and feet were padded very well. Special attention was paid to the genitalia, and these were padded accordingly. SCDs were placed on bilateral lower extremities and were connected. Arms were well padded and placed on arm boards up and out in the 90/90 position. Once in position, again we confirmed good ventilation capabilities and that lines were running appropriately. The alexis ents Lumbar spine was then exposed. 1010s were placed outlining the incision site. Standard alcohol was used to clean the incision site and allowed to dry. C-arm was used to needle localize the pedicles at L3-S1 and bio-eulogio the patient and confirm level for incision which was marked with a skin marker. Operative briefing was performed with all teams and everyone in agreement to proceed. The patient was then prepped and draped in a normal sterile fashion. Timeout was then performed, and all parties agreed with the procedure to be performed. Midline skin incision was made over the previously bio-marked area and dissection taken down over the SP of L2-PELVIS. On dissection we encountered a fluid collection around the central L4-5 and L5-S1 portion which seemed to be around the crosslink area. This was evacuated and debrided from the area using rongure. L3-S1 was taken out over facet joints and TPs and the old hardware was identified and cleaned. The wound was irrigated with Irricept and Betadine followed by NSS at this point and debrided of any further scar tissue or necrotic tissue ussing curette and rongure. Posterolateral gutters were cleaned of old graft (MGT) and redecorticated. Lateral image used to confirm levels. L4 screws were loose b/l and were removed. L5 and S1 were solid. The fusion was explored. Pelvic screws b/l were loose and were removed to be upsiz ed. Once this was accomplished, screws were proceeded to be placed b/l at pedicles from L3, L4 and Pelvis using [employer] Navigation. An SP clamp was used, 3D C arm spin obtained and confirmed to be accurate. Once this was confirmed screws were placed using a navigated rissa, navigated awl-tap and navigated driver starting gate. Once screws were placed they were confirmed to be in good position using AP and Lateral fluoroscopy. The wound was then irrigated. Screws were tested and all tested above 17 mA. We then proceeded to decompression and cage placement. New bilateral pelvic screws were placed with SI bone and upsized to 10.5mm screws. L4 screws were upsized to 8.5mm screws and 6.5 mm screws placed in L3 b/l. We revised the SI fusion on both sides by taking down the scar tissues that was formed and decorticating more with the high speed rissa. We then checked the SI fusion screws and they were solid. We will place bone graft here later in the case. We then turned our attention to interbody fusion and revision PL stabilized fusion. Attention was then turned to interbody fusion at L3-4. Bilateral laminectomy, complete facetectomy and foraminotomy performed at L3-4 using high speed rissa and Kerrison rongure. The ligamentum was removed and the dural sac decompressed. Exiting and traversing roots visualized and decompressed. Neural elements were then protected, and disc space accessed with an osteotome. Sequential shaving then done under lateral imaging and complete discectomy performed using saroj, pituitary and curette. Once good bleeding endplates accomplished and good height restorationist with trials, a combination of autograft, allograft and synthetic placed anterior in the disc space. The cage was then selected and impacted into place under lateral imaging. The cage was then expanded restoring height, lordosis and alignment. The cage was backfilled with bone graft through a funnel. The farm product purchaser was removed and the area inspected. Good cage placement, stable cage and no injuries. Area was irrigated copiously, and meticulous hemostasis achieved. The tubular retractor was then removed under direct visualization. Attention was then turned to revision decompression of L4-S1 to ensure complete decompression in the area, remove any scar tissues around the nerves and remove an errant graft migration. There was graft migration centrally at L5-S1 which was identified and removed entirely. There was good decompression here accomplished. We then revised the PL fusion by removing the pseudoarthrosis that formed and decorticating the TPs again as well as what was left of the facet joints. We were able to create a good bleeding bed here and pocket for graft to be accepted. Rods were then sized and selected and placed into Pelvic and S1 screws b/l. Set screws locked these in place and then sequentially reduced into L5, L4 then L3 b/l for reduction of listhesis alignment restorationist and height. This was accomplished. Set screws were then all placed and final tightened. The wound was irrigated with 3L acne irrigation, 3L gentamicin irrigation and 2L irricept, 2 L betadine and 3L NSS. Surgical was placed over the dura. Allograft, arthrocell, contour, and autograft was then placed in the PL gutters for fusion again and packed in place. Deep drain placed and secured to the skin. Final images confirmed good placement of hardware and good reduction of listhesis as well as restorationist of height and lordosis. Fascia was then closed with #1 PDS. Deep subq closed with 0 Vicryl. Superficial subq closed with 2-0 Vicryl and skin with 2-0 Nylon in running trauma fashion. Wound edges approximated very well. Wound was then cleaned with alcohol and dried. Wounds dressed with Optifoam dressings. The patient was then transferred off the table back to their hospital bed a- traumatically. Drains continued to hold suction. They were extubated by the department of anesthesia. They were then transferred to PACU in stable condition having tolerated the procedure with no complications.
--- NOTE | 2023-11-08 18:22 | FL ---
EXAMINATION TYPE: FL guidance operating room, XR lumbar spine 2 or 3V DATE OF EXAM: 10/21/2023 11:17 AM COMPARISON: Pre Operative Images if available both CT/MRI or plain film CLINICAL INDICATION: Male, 53 years old with history of L76.34 POST OPERATIVE COMPRESSIVE SEROMA; TECHNIQUE: FL guidance operating room, XR lumbar spine 2 or 3V, multiple fluoroscopic images provided for procedure. Total fluoroscopy time: 1 minute Total submitted images to PACS: 4 DAP: [phone] mGym2 Gycm2 uGym2 cGycm2 FINDINGS: Fluoroscopic images during internal fixation/arthroplasty demonstrate fixation hardware in appropriat e position. Hardware appears intact. No immediate complication identified. IMPRESSION: 1. No evidence for intraoperative complication. 2. Please see the operative/procedural note for further details. [facility], , 11/08/2023 6:19 PM
== END 2023-10-24 17:40 | disposition home or self-care (01) | DRG 454 ==
LOC: 2ORMAIN 05:32 → 4SSUR 14:46
PROVIDERS: ADMIT Orthopaedic Surgery; ATTEND Orthopaedic Surgery
PROC: 0SG30AJ Fusion of Lumbosacral Joint with Interbody Fusion Device, Posterior Approach, Anterior Column, Open Approach (ICD-10-PCS; 2023-10-21)
PROC: 0SP004Z Removal of Internal Fixation Device from Lumbar Vertebral Joint, Open Approach (ICD-10-PCS; 2023-10-21)
PROC: 00NY0ZZ Release Lumbar Spinal Cord, Open Approach (ICD-10-PCS; 2023-10-21)
PROC: 0SG10K1 Fusion of 2 or more Lumbar Vertebral Joints with Nonautologous Tissue Substitute, Posterior Approach, Posterior Column, Open Approach (ICD-10-PCS; 2023-10-21)
PROC: 0SG30AJ Fusion of Lumbosacral Joint with Interbody Fusion Device, Posterior Approach, Anterior Column, Open Approach (ICD-10-PCS; 2023-10-21)
PROC: 0SG3071 Fusion of Lumbosacral Joint with Autologous Tissue Substitute, Posterior Approach, Posterior Column, Open Approach (ICD-10-PCS; 2023-10-21)
PROC: 01NB0ZZ Release Lumbar Nerve, Open Approach (ICD-10-PCS; 2023-10-21)
PROC: 01NR0ZZ Release Sacral Nerve, Open Approach (ICD-10-PCS; 2023-10-21)
PROC: 0ST40ZZ Resection of Lumbosacral Disc, Open Approach (ICD-10-PCS; 2023-10-21)
PROC: 0SB20ZZ Excision of Lumbar Vertebral Disc, Open Approach (ICD-10-PCS; 2023-10-21)
PROC: 0SH804Z Insertion of Internal Fixation Device into Left Sacroiliac Joint, Open Approach (ICD-10-PCS; 2023-10-21)
PROC: 0SH704Z Insertion of Internal Fixation Device into Right Sacroiliac Joint, Open Approach (ICD-10-PCS; 2023-10-21)
PROC: 4A11X4G Monitoring of Peripheral Nervous Electrical Activity, Intraoperative, External Approach (ICD-10-PCS; 2023-10-21)
PROC: 0SG0071 Fusion of Lumbar Vertebral Joint with Autologous Tissue Substitute, Posterior Approach, Posterior Column, Open Approach (ICD-10-PCS; principal; 2023-10-21 07:30)
DX: M96.0 Pseudarthrosis after fusion or arthrodesis (principal); L76.34 Postprocedural seroma of skin and subcutaneous tissue following other procedure; T84.226A Displacement of internal fixation device of vertebrae, initial encounter; M47.16 Other spondylosis with myelopathy, lumbar region; Z88.6 Allergy status to analgesic agent; Y84.8 Other medical procedures as the cause of abnormal reaction of the patient, or of later complication, without mention of misadventure at the time of the procedure; R29.6 Repeated falls; Z91.81 History of falling; E78.5 Hyperlipidemia, unspecified; K21.9 Gastro-esophageal reflux disease without esophagitis; M48.062 Spinal stenosis, lumbar region with neurogenic claudication; M51.17 Intervertebral disc disorders with radiculopathy, lumbosacral region; Y79.2 Prosthetic and other implants, materials and accessory orthopedic devices associated with adverse incidents; Y83.8 Other surgical procedures as the cause of abnormal reaction of the patient, or of later complication, without mention of misadventure at the time of the procedure; Z79.899 Other long term (current) drug therapy; Z87.891 Personal history of nicotine dependence; Z96.611 Presence of right artificial shoulder joint; M51.9 Unspecified thoracic, thoracolumbar and lumbosacral intervertebral disc disorder; M47.26 Other spondylosis with radiculopathy, lumbar region
CPT/HCPCS: 72100; 72131; 80048; 85025; 87070; 87205; 88304

== ENCOUNTER 2023-11-06 15:17 | Inpatient (IN) | payer MEDICARE, OTHER ==
--- NOTE | 2023-11-06 15:50 | ED ---
Back Pain HPI - General Source: patient, RN notes reviewed Limitations: no limitations <Brooklyn Peña - Last Filed: 11/06/23 15:48> <Keith Fry - Last Filed: 11/06/23 21:14> - General Chief Complaint: Back Pain/Injury Stated Complaint: Fever, back pain Time Seen by Provider: 11/06/23 15:48 - History of Present Illness Initial Comments: Quick note: 53-year-old male presented to ER with a chief complaint of back pain. Patient states he underwent his third revision on spinal surgery about 2 weeks ago with . Patient reports today he started to have extreme pain with radiation to legs. Denies any saddle paresthesias or bowel or bladder incontinence. Patient does report chills this morning. No new injuries or tra umas. (Brooklyn Peña) 53-year-old male presenting with chief complaint of back pain and fever. Patient underwent his third revision of his lumbar spinal surgery about [address] Holland. Today the patient was complaining of a fever. He is also having increased pain in the lower back. It does radiate down his legs. No loss of bowel or bladder control or saddle paresthesia. Denies any new injury or trauma. (Keith Fry) - Related Data Home Medications Medication Instructions Recorded Confirmed SUMAtriptan succinate [Imitrex] 50 mg PO DIRECTED PRN 12/12/17 10/21/23 Pantoprazole Sodium [Protonix] 40 mg PO QAM 04/16/21 10/21/23 Fenofibrate [Lofibra] 160 mg PO QAM 02/01/23 10/21/23 Naproxen Sodium [Aleve] 220 mg PO DIRECTED PRN 04/22/23 10/21/23 Gabapentin 600 mg PO TID 10/14/23 10/21/23 Terbinafine [LamISIL] 250 mg PO DAILY 10/14/23 10/21/23 diazePAM 10 mg PO TID PRN 10/14/23 10/21/23 Previous Rx's Medication Instructions Recorded Cyclobenzaprine [Flexeril] 5 mg PO TID PRN #30 tablet 10/24/23 Gabapentin 300 mg PO TID #90 cap 10/24/23 Sennosides/Docusate Sodium [Senna 1 each PO DAILY PRN #20 tab 10/24/23 Plus 8.6-50 mg Tablet] cefaDROXiL [Duricef] 500 mg PO Q12HR #10 cap 10/24/23 oxyCODONE-APAP 5-325MG [Percocet 1 tab PO Q4HR PRN #28 tab 10/24/23 5-325 mg] Allergies Allergy/AdvReac Type Severity Reaction Status Date / Time aspirin AdvReac Nausea Verified 11/06/23 15:26 Review of Systems ROS Other: All systems not noted in ROS Statement are negative. <Brooklyn Peña - Last Filed: 11/06/23 15:48> ROS Other: All systems not noted in ROS Statement are negative. <Keith Fry - Last Filed: 11/06/23 21:14> ROS Statement: Those systems with pertinent positive or pertinent negative responses have been documented in the HPI. Past Medical History Past Medical History: GERD/Reflux, Hyperlipidemia Additional Past Medical History / Comment(s): Frequent migraine headaches especially w/stressful situations. Pain and burning down both legs.resolved since 1st surgery. Scratches on LE's. History of Any Multi-Drug Resistant Organisms: None Reported Past Surgical History: Cholecystectomy Additional Past Surgical History / Comment(s): multiple back surgeries Past Anesthesia/Blood Transfusion Reactions: No Reported Reaction Past Psychological History: Anxiety Smoking Status: Former smoker Past Alcohol Use History: None Reported Past Drug Use History: Marijuana - Past Family History Mother Family Medical History: No Reported History <Brooklyn Peña - Last Filed: 11/06/23 15:48> General Exam Limitations: no limitations <Brooklyn Peña - Last Filed: 11/06/23 15:48> Limitations: no limitations General appearance: alert, in no apparent distress Head exam: Present: atraumatic, normocephalic Eye exam: Present: normal appearance, EOMI Neck exam: Present: normal inspection. Absent: meningismus Respiratory exam: Present: normal lung sounds bilaterally. Absent: respiratory distress, wheezes, rales, rhonchi, stridor Cardiovascular Exam: Present: regular rate, normal rhythm, normal heart sounds. Absent: systolic murmur, diastolic murmur, rubs, gallop, clicks Neurological exam: Present: alert, oriented X3 Psychiatric exam: Present: normal affect, normal mood Skin exam: Present: warm, dry <Keith Fry - Last Filed: 11/06/23 21:14> - General Exam Comments Initial Comments: Visual Physical Exam Vital signs reviewed General: Well-appearing, nontoxic, no acute distress. Head: Normocephalic, atraumatic Eyes: PERRLA, EOMI ENT: Airway patent Chest: Nonlabored breathing Skin: No visual rash, normal skin tone Neuro: Alert and oriented 3 Musculoskeletal: No gross abnormalities (Brooklyn Peña) Course Vital Signs 11/06/23 11/06/23 15:23 19:13 Temperature 98 F 98.4 F Pulse Rate 98 93 Respiratory 16 16 Rate Blood Pressure 125/78 100/68 O2 Sat by Pulse 97 99 Oximetry Medical Decision Making <Brooklyn Peña - Last Filed: 11/06/23 15:48> - Lab Data Result diagrams: 11/06/23 16:46 11/06/23 16:46 <Keith Fry - Last Filed: 11/06/23 21:14> - Medical Decision Making I performed the quick note portion of this chart. Electronically signed by Brooklyn Peña PA-C (Brooklyn Peña) Was pt. sent in by a medical professional or institution ([facility], [facility], urgent care, hospital, or care home...) When possible be specific @ -No Did you speak to anyone other than the patient for history (EMS, parent, family, police, friend...)? What history was obtained from this source @ -No Did you review nursing and triage notes (agree or disagree)? Why? @ -I reviewed and agree with nursing and triage notes Were old charts reviewed (outside hosp., previous admission, EMS record, old EKG, old radiological studies, urgent care reports/EKG's, care home records)? Report findings @ -No old charts were reviewed Differential Diagnosis (chest pain, altered mental status, abdominal pain women, abdominal pain men, vaginal bleeding, weakness, fever, dyspnea, syncope, headache, dizziness, GI bleed, back pain, seizure, CVA, palpatations, mental health, musculoskeletal)? @ - MDM Differential Back Pain: Strain, zoster, cauda equina syndrome, epidural abscess, vertebral osteomy elitis, discitis, fracture, subluxation, disc herniation, DJD, spinal stenosis, dissection, AAA, pancreatitis, peptic ulcer disease, pyelonephritis, kidney stone this is not meant to be an all-inclusive list. EKG interpreted by me (3pts min.). @ -As above X-rays interpreted by me (1pt min.). @ -None done CT interpreted by me (1pt min.). @ -CT shows redemonstration of the postoperative changes with multilevel hardware fixation extending from L3 to pelvis. The hardware and osseous structures appear unchanged from prior, no acute abnormalities are seen. Lobular rim-enhancing fluid collection along the posterior aspect of the spinal canal extending from L2/3 to the level of the upper sacrum highly concerning for abscess. Additionally superficial to the spinous processes there is another craniocaudally oriented elongated fluid collection which extends from about T11/12 to the mid sacrum. Uncertain but this likely communicates with a deeper fluid collection. U/S interpreted by me (1pt. min.). @ -None done What testing was considered but not performed or refused? (CT, X-rays, U/S, labs)? Why? @ -None What meds were considered but not given or refused? Why? @ -None Did you discuss the management of the patient with other professionals (professionals i.e. , PA, [facility], lab, RT, psych nurse, bilingual social worker, ski lift attendant, teacher, ground intelligence officer, case maker)? Give summary @ -I spoke with Raymond Olivares from orthopedics who accepts admission Was smoking cessation discussed for >3mins.? @ -No Was critical care preformed (if so, how long)? @ -No Were there social determinants of health that impacted care today? How? (Homelessness, low income, unemployed, alcoholism, drug addiction, transportation, low edu. Level, literacy, decrease access to med. care, group home, rehab)? @ -No Was there de-escalation of care discussed even if they declined (Discuss DNR or withdrawal of care, Hospice)? DNR status @ -No What co-morbidities impacted this encounter? (DM, HTN, Smoking, COPD, CAD, Cancer, CVA, ARF, Chemo, Hep., AIDS, mental health diagnosis, sleep apnea, morbid obesity)? @ -None Was patient admitted / discharged? Hospital course, mention meds given and route, prescriptions, significant lab abnormalities, going to OR and other pertinent info. @ -53-year-old male presenting with chief complaint of lower back pain. 2 weeks prior he had a revision to his lumbar spine surgery with Dr. Holland. Earlier today he had a fever. History and physical examination are conducted. WBC 17.9, patient is currently on steroids, however there is still concern for infection due to his fever. CT is positive for abscess. Patient is started on vancomycin and Zosyn, after blood cultures were drawn. Patient and are educated on today's findings and treatment plan. Agreeable with admission. I discussed this case with my attending Dr. Reyna. Undiagnosed new problem with uncertain prognosis? @ -No Drug Therapy requiring intensive monitoring for toxicity (Heparin, Nitro, I nsulin, Cardizem)? @ -No Were any procedures done? @ -No Diagnosis/symptom? @ -Postoperative lumbar spine abscess Acute, or Chronic, or Acute on Chronic? @ -Acute Uncomplicated (without systemic symptoms) or Complicated (systemic symptoms)? @ -Complicated Side effects of treatment? @ -No Exacerbation, Progression, or Severe Exacerbation? @ -No Poses a threat to life or bodily function? How? (Chest pain, [place], GA, pneumonia, PE, COPD, DKA, ARF, appy, cholecystitis, CVA, Diverticulitis, Homicidal, Suicidal, threat to staff... and all critical care pts) @ -yes (Keith Fry) - Lab Data Lab Results 11/06/23 11/06/23 11/06/23 Range/Units 16:46 16:46 16:46 WBC 17.9 H (3.8-10.6) k/uL RBC 4.06 L (4.30-5.90) m/uL Hgb 12.7 L (13.0-17.5) gm/dL Hct 38.5 L (39.0-53.0) % MCV 94.9 (80.0-100.0) fL MCH 31.2 (25.0-35.0) pg MCHC 32.9 (31.0-37.0) g/dL RDW 13.1 (11.5-15.5) % Plt Count 464 H (150-450) k/uL MPV 7.2 Neutrophils % 88 % Lymphocytes % 7 % Monocytes % 4 % Eosinophils % 0 % Basophils % 0 % Neutrophils # 15.7 H (1.3-7.7) k/uL Lymphocytes # 1.3 (1.0-4.8) k/uL Monocytes # 0.7 (0-1.0) k/uL Eosinophils # 0.1 (0-0.7) k/uL Basophils # 0.0 (0-0.2) k/uL Sodium 137 (137-145) mmol/L Potassium 4.3 (3.5-5.1) mmol/L Chloride 105 (98-107) mmol/L Carbon Dioxide 23 (22-30) mmol/L Anion Gap 9 mmol/L BUN 22 H (9-20) mg/dL Creatinine 0.99 (0.66-1.25) mg/dL Est GFR (CKD-EPI)AfAm >90 (>60 ml/min/1.73 sqM) Est GFR (CKD-EPI)NonAf 85 (>60 ml/min/1.73 sqM) Glucose 101 H (74-99) mg/dL Plasma Lactic Acid Brett 1.7 (0.7-2.0) mmol/L Calcium 9.7 (8.4-10.2) mg/dL Total Bilirubin 0.4 (0.2-1.3) mg/dL AST 28 (17-59) U/L ALT 16 (4-49) U/L Alkaline Phosphatase 85 (38-126) U/L Total Protein 6.5 (6.3-8.2) g/dL Albumin 3.9 (3.5-5.0) g/dL Urine Color Urine Appearance (Clear) Urine pH (5.0-8.0) Ur Specific [place] (1.001-1.035) Urine Protein (Negative) Urine Glucose (UA) (Negative) Urine Ketones (Negative) Urine Blood (Negative) Urine Nitrite (Negative) Urine Bilirubin (Negative) Urine Urobilinogen (<2.0) mg/dL Ur Leukocyte Esterase (Negative) 11/06/23 Range/Units 17:18 WBC (3.8-10.6) k/uL RBC (4.30-5.90) m/uL Hgb (13.0-17.5) gm/dL Hct (39.0-53.0) % MCV (80.0-100.0) fL MCH (25.0-35.0) pg MCHC (31.0-37.0) g/dL RDW (11.5-15.5) % Plt Count (150-450) k/uL MPV Neutrophils % % Lymphocytes % % Monocytes % % Eosinophils % % Basophils % % Neutrophils # (1.3-7.7) k/uL Lymphocytes # (1.0-4.8) k/uL Monocytes # (0-1.0) k/uL Eosinophils # (0-0.7) k/uL Basophils # (0-0.2) k/uL Sodium (137-145) mmol/L Potassium (3.5-5.1) mmol/L Chloride (98-107) mmol/L Carbon Dioxide (22-30) mmol/L Anion Gap mmol/L BUN (9-20) mg/dL Creatinine (0.66-1.25) mg/dL Est GFR (CKD-EPI)AfAm (>60 ml/min/1.73 sqM) Est GFR (CKD-EPI)NonAf (>60 ml/min/1.73 sqM) Glucose (74-99) mg/dL Plasma Lactic Acid Brett (0.7-2.0) mmol/L Calcium (8.4-10.2) mg/dL Total Bilirubin (0.2-1.3) mg/dL AST (17-59) U/L ALT (4-49) U/L Alkaline Phosphatase (38-126) U/L Total Protein (6.3-8.2) g/dL Albumin (3.5-5.0) g/dL Urine Color Yellow Urine Appearance Clear (Clear) Urine pH 5.5 (5.0-8.0) Ur Specific [place] 1.026 (1.001-1.035) Urine Protein Negative (Negative) Urine Glucose (UA) Negative (Negative) Urine Ketones Negative (Negative) Urine Blood Negative (Negative) Urine Nitrite Negative (Negative) Urine Bilirubin Negative (Negative) Urine Urobilinogen <2.0 (<2.0) mg/dL Ur Leukocyte Esterase Negative (Negative) Disposition <Brooklyn Peña - Last Filed: 11/06/23 15:48> Time of Disposition: 20:46 <Keith Fry - Last Filed: 09/29/24 21:14> Clinical Impression: Postoperative abscess Disposition: ADMITTED IP TO THIS [facility] Condition: Fair Referrals: Reginald Wesley DO [Primary Care Provider] - 1-2 days
[2023-11-06] MEDS: HYDROmorphone 1 MG/ML 1 ML SYRINGE IVP STA ×2 (16:46→19:38)
[2023-11-06 17:01] LABS: Basophils % (A) 0 %; Eosinophils # (A) 0.1 k/uL (0-0.7); Eosinophils % (A) 0 %; HCT 38.5 % (39.0-53.0); HGB 12.7 gm/dL (13.0-17.5); Lymphocytes # (A) 1.3 k/uL (1.0-4.8); Lymphocytes % (A) 7 %; MCH 31.2 pg (25.0-35.0); MCHC 32.9 g/dL (31.0-37.0); MCV 94.9 fL (80.0-100.0); Mean Platelet Volume 7.2; Monocytes # (A) 0.7 k/uL (0-1.0); Monocytes % (A) 4 %; Neutrophils # (A) 15.7 k/uL (1.3-7.7); Neutrophils % (A) 88 %; Platelet Count 464 k/uL (150-450); RBC 4.06 m/uL (4.30-5.90); RDW 13.1 % (11.5-15.5); WBC 17.9 k/uL (3.8-10.6)
[2023-11-06 17:18] LABS: ALT 16 U/L (4-49); AST 28 U/L (17-59); African American GFR (CKD) >90 (>60 ml/min/1.73 sqM); Albumin 3.9 g/dL (3.5-5.0); Alkaline Phosphatase 85 U/L (38-126); Anion Gap 9 mmol/L; Blood Urea Nitrogen 22 mg/dL (9-20); Calcium 9.7 mg/dL (8.4-10.2); Carbon Dioxide 23 mmol/L (22-30); Chloride 105 mmol/L (98-107); Glucose 101 mg/dL (74-99); Non-African American GFR(CKD) 85 (>60 ml/min/1.73 sqM); Potassium 4.3 mmol/L (3.5-5.1); Sodium 137 mmol/L (137-145); Total Bilirubin 0.4 mg/dL (0.2-1.3); Total Protein 6.5 g/dL (6.3-8.2)
[2023-11-06 17:25] LABS: Appearance,Urine Clear (Clear); Bilirubin,Urine Negative (Negative); Blood,Urine Negative (Negative); Color,Urine Yellow; Glucose,Urine (UA) Negative (Negative); Ketones,Urine Negative (Negative); Leukocyte Esterase,Urine Negative (Negative); Nitrite,Urine Negative (Negative); PH, Urine 5.5 (5.0-8.0); Protein,Urine Negative (Negative); Specific Gravity,Urine 1.026 (1.001-1.035); Urobilinogen,Urine <2.0 mg/dL (<2.0)
--- NOTE | 2023-11-06 20:13 | CT ---
EXAMINATION TYPE: CT lumbar spine w con CT DLP: 1312.6 mGycm, Automated exposure control for dose reduction was used. DATE OF EXAM: 11/06/2023 5:22 PM COMPARISON: CT lumbar spine 10/21/2023. CLINICAL INDICATION:Male, 53 years old with history of pain, fever; PHH, back pain and fever 2 weeks post op TECHNIQUE: CT of the lumbar spine was performed with contrast. Multiplanar soft tissue and bone windows were obt ained and reviewed. . Contrast used: Not reported FINDINGS: Redemonstration of postoperative changes with bilateral pedicle screws and posterior fixation rods at the L3, L4, L5, S1 levels, as well as additional fixation screws, extending across the SI joints int o the iliac bones. Prosthetic disc interspace material again present L3-L4, L4-L5, L5-S1. Hardware sh ows no significant change. Accompanying laminectomies again noted at the surgical levels. There is some limitation in evaluation due to hardware-related beam hardening artifact, however the underlying osseous structures appear un changed from the prior exam, without clear evidence of an acute fracture or osseous destructive yi es. Chronic deformity of the L1 vertebral body again seen. Grade 2 anterolisthesis L5 on S1 is stable . Previous drainage catheter in the soft tissues of the surgical bed posteriorly seen before as well as the antibiotic pledgets are no longer seen. Lobular fluid collection with rim enhancement can be seen along the posterior aspect of the spinal ca nal extending from L2-L3 the level to the upper sacrum, and appears to reach a maximum axial size of about 6.3 x 3.3 cm around the L3-L4 level. Additionally, superficial to the spinous processes there i s another craniocaudally oriented elongated fluid collection which extends from about T11-T12 cranial ly and to the mid sacrum caudally. Maximal axial dimension of this collection is about 3.8 x 2.6 cm a round the L3-L4 level. It is uncertain whether this communicates with the deeper fluid collection, bu t this is judged to be likely. Also portions of this collection are rather superficial reaching near the skin (correlate clinically for any possible draining tracts to the skin surface). Suspect associated phlegmon touches or nearly touches the posterior aspect of the psoas muscles, with out clear evidence of an intramuscular abscess by this exam. MR could further evaluate if and when cl inically warranted. No free fluid is seen in the visualized abdomen or pelvis. Mild/moderate mixed atherosclerotic diseas e of the aorta and the branches without evidence of AAA. Fatty atrophy of the pancreas. Unremarkable kidneys and adrenals. IMPRESSION: 1. Redemonstration of postoperative changes with multilevel hardware fixation extending from L3-pelv is. 2. The hardware and osseous structures appear unchanged from prior; no acute abnormalities are seen. 3. Lobular rim-enhancing fluid collection along the posterior aspect of the spinal canal extending f rom L2-L3 to the level of the upper sacrum, highly concerning for abscess. 4. Additionally, superficial to the spinous processes there is another craniocaudally oriented elong ated fluid collection which extends from about T11-T12 to the mid sacrum. Uncertain, but this likely communicates with the deeper fluid collection. 5. If not already done, recommend urgent spine surgical and ID consults. [facility], , 11/06/2023 8:10 PM
[2023-11-06] MEDS ORDERED: VANCOMYCIN IV PER PHARMACY 1 EACH MISC MISCELLANE PRN (20:34)
[2023-11-06] MEDS ORDERED: NALOXONE 0.4 MG/ML 1 ML VIAL IV PRN (20:36)
[2023-11-06] MEDS: SODIUM CHLORIDE 0.9% 2,000 ML IV ONE (21:29)
[2023-11-06] MEDS: KETOROLAC 15 MG/ML 1 ML VIAL IVP PRN (21:39)
[2023-11-06] MEDS: PIPERACILLIN-TAZOBACTAM 3.375 GM in SODIUM CHLORIDE 0.9% 100 ML IVPB STA (21:43)
[2023-11-06] MEDS: SODIUM CHLORIDE 0.9% 1,000 ML IV SCH (23:36)
[2023-11-06] MEDS: VANCOMYCIN 1,500 MG in SODIUM CHLORIDE 0.9% 500 ML 500 ML IVPB ONE (23:56)
[2023-11-07] MEDS: HYDROmorphone 1 MG/ML 1 ML SYRINGE IVP PRN (08:27)
[2023-11-07] MEDS: IBUPROFEN 400 MG TAB PO PRN (10:43)
[2023-11-07] MEDS: VANCOMYCIN 1,500 MG in SODIUM CHLORIDE 0.9% 500 ML 500 ML IVPB SCH (10:43)
[2023-11-07] MEDS ORDERED: SUMAtriptan succinate 50 MG TAB PO PRN (12:33)
--- NOTE | 2023-11-07 12:42 | P.CONS ---
History of Present Illness - History of Present Illness This is a pleasant 53 years old male with past medical history of multiple me dical problems i, he was recently discharged from the hospital for recent back surgery for previous leg weakness with paresthesia and he underwent revision of L3-pelvis decompression and fusion, this is the third procedure for this purpose per patient. Patient states that over the last week his lower back pain was getting gradually worse, he rated as 10/10, it radiates to both legs, his left leg numb but this is from before surgery. His hip is also hurting. Is very difficult for him to walk. He has constipation but no other GI problem no urinary problem. No chest pain or dyspnea. No headache dizziness. He quit smoking 4 years ago, no alcohol. He uses marijuana at times He is afebrile, he has leukocytosis of 17,000. BMP and liver enzymes and urine analysis were negative CT of the lumbar spine showing lobular fluid collection along the posterior capsule of the spinal canal. Extended L3-L3 to upper sacrum Prognosis is guarded Review of Systems Review of systems CONSTITUTIONAL: No fever, no malaise, no fatigue. HEENT: No recent visual problems or hearing problems. Denied any sore throat. CARDIOVASCULAR: No orthopnea, PND, no palpitations, no syncope. PULMONARY: No shortness of breath, no cough, no hemoptysis. GASTROINTESTINAL: No diarrhea, no nausea, no vomiting, no abdominal pain. Normoactive bowel sounds. NEUROLOGICAL: No headaches, no weakness, no numbness. HEMATOLOGICAL: Denies any bleeding or petechiae. GENITOURINARY: Denies any burning micturition, frequency, or urgency. MUSCULOSKELETAL/RHEUMATOLOGICAL: As above ENDOCRINE: Denies any polyuria or polydipsia. Past Medical History Past Medical History: GERD/Reflux, Hyperlipidemia Additional Past Medical History / Comment(s): Frequent migraine headaches especially w/stressful situations. Pain and burning down both legs.resolved since 1st surgery. Scratches on LE's. History of Any Multi-Drug Resistant Organisms: None Reported Past Surgical History: Cholecystectomy, Hernia Repair, Orthopedic Surgery Additional Past Surgical History / Comment(s): multiple back surgeries, right shoulder sx, wrist sx, hernia repair, colonoscopy Past Anesthesia/Blood Transfusion Reactions: No Reported Reaction Past Psychological History: Anxiety Additional Psychological History / Comment(s): just placed on some new meds, hasn't been given dx. yet Smoking Status: Current every day smoker Past Alcohol Use History: None Reported Additional Past Alcohol Use History / Comment(s): Started smoking at age 16, 1/2 ppd, quit September 2019. Past Drug Use History: Marijuana Additional Drug Use History / Comment(s): Hx heavy Marijuana use daily use, quit Nov 2022. - Past Family History Mother Family Medical History: No Reported History Medications and Allergies Home Medications Medication Instructions Recorded Confirmed Type SUMAtriptan succinate [Imitrex] 50 mg PO DAILY PRN 12/12/17 11/07/23 History Pantoprazole Sodium [Protonix] 40 mg PO QAM 04/16/21 11/07/23 History Fenofibrate [Lofibra] 160 mg PO QAM 02/01/23 11/07/23 History Naproxen Sodium [Aleve] 220 mg PO BID PRN 04/22/23 11/07/23 History Gabapentin 600 mg PO TID 10/14/23 11/07/23 History Terbinafine [LamISIL] 250 mg PO DAILY 10/14/23 11/07/23 History Pregabalin [Lyrica] 150 mg PO BID 11/07/23 11/07/23 History Sennosides/Docusate Sodium [Senna 1 tab PO DAILY PRN 11/07/23 11/07/23 History Plus 8.6-50 mg Tablet] oxyCODONE-APAP 10-325MG [Percocet 1 tab PO TID PRN 11/07/23 11/07/23 History 10-325 mg] predniSONE [Deltasone] 20 mg PO BID 11/07/23 11/07/23 History Allergies Allergy/AdvReac Type Severity Reaction Status Date / Time aspirin AdvReac Nausea Verified 11/07/23 07:04 Physical Exam Vitals: Vital Signs Temp Pulse Pulse Resp BP BP Pulse Ox 11/07/23 08:00 97.7 F 70 19 113/75 98 11/07/23 07:16 98.0 F 71 18 108/68 99 11/07/23 05:30 73 16 108/59 98 11/06/23 23:57 77 18 104/65 96 11/06/23 19:13 98.4 F 93 16 100/68 99 11/06/23 15:23 98 F 98 16 125/78 97 Intake and Output 11/06/23 11/07/23 11/07/23 22:59 06:59 14:59 Other: Weight 81.647 kg 81.647 kg GENERAL: The patient is alert and oriented x3, not in any acute distress. Well developed, well nourished. HEENT: Pupils are round and equally reacting to light. EOMI. No scleral icterus. No conjunctival pallor. Normocephalic, atraumatic. No pharyngeal erythema. No thyromegaly. CARDIOVASCULAR: S1 and S2 present. No murmurs, rubs, or gallops. PULMONARY: Chest is clear to auscultation, no wheezing , no crackles. ABDOMEN: Soft, nontender, nondistended, normoactive bowel sounds. No palpable organomegaly. -MUSCULOSKELETAL: No joint swelling or deformity. Patient difficult for him to move because of pain in the back area. Lower back vertical incision closed with no surrounding cellulitis or abnormal discharge EXTREMITIES: No cyanosis, clubbing, or pedal edema. NEUROLOGICAL: Gross neurological examination did not reveal any focal deficits. SKIN: No rashes. no petechiae. Results CBC & Chem 7: 11/06/23 16:46 11/06/23 16:46 Labs: Abnormal Lab Results - Last 24 Hours (Table) 11/06/23 11/06/23 Range/Units 16:46 16:46 WBC 17.9 H (3.8-10.6) k/uL RBC 4.06 L (4.30-5.90) m/uL Hgb 12.7 L (13.0-17.5) gm/dL Hct 38.5 L (39.0-53.0) % Plt Count 464 H (150-450) k/uL Neutrophils # 15.7 H (1.3-7.7) k/uL BUN 22 H (9-20) mg/dL Glucose 101 H (74-99) mg/dL Assessment and Plan Assessment: Sepsis secondary to Spinal abscess Recent revision of L3-pelvis decompression and fusion surgery Acute acute on chronic low back pain with radiculopathy Hyperlipidemia History of GERD History of migraine Plan: Patient currently covered with IV vancomycin and IV cefepime Continue with pain management. Patient continued on home dose of Percocet. Dilaudid is ordered Muscle relaxants with Lyrica Orthopedic team consult Infectious disease consult labs and medication were reviewed.. Continue same treatment. Continue with symptomatic treatment. Resume home medication. Monitor labs and vitals. DVT and GI prophylaxis. Further recommendations as per clinical course of the patient DVT prophylaxis: S deferred to surgery team GI Prophylaxis: Protonix
--- NOTE | 2023-11-07 14:41 | P.HPOR ---
History of Present Illness H&P Date: 11/07/23 Chief Complaint: Low back pain, lower extremity radiculopathy, fever Patient is a 53-year-old male who presented to [facility] on 11/06/2023 with regards to worsening low back pain, lower extremity radiculopathy and fevers. Patient underwent a revision [id number] decompression and fusion with Dr. Holland about 2 weeks ago. Patient was actually seen in the office later last week and was doing fairly well. CT scan demonstrated excess fluid collection near the surgical bed and subcutaneous area, his white blood cell count was quite elevated. Patient was admitted under our orthopedic care for further evaluation and management, consults were placed for infectious disease and internal medicine. Patient was evaluated at bedside today, his was also present at bedside. Patient states for the last week or so he is noticed progressively worsening low back pain and lower extremity discomfort/weakness. Patient had developed fevers toward the end of the weekend. Patient normally takes Percocet and gabapentin which were providing very minimal if any relief. Patient denies any loss of bowel or bladder function at this time. Patient denies any recent trauma, this to include falls. Patient has no other orthopedic complaints at this time. Review of Systems Constitutional: Reports as per HPI Past Medical History Past Medical History: GERD/Reflux, Hyperlipidemia Additional Past Medical History / Comment(s): Frequent migraine headaches especially w/stressful situations. Pain and burning down both legs.resolved since 1st surgery. Scratches on LE's. History of Any Multi-Drug Resistant Organisms: None Reported Past Surgical History: Cholecystectomy, Hernia Repair, Orthopedic Surgery Additional Past Surgical History / Comment(s): multiple back surgeries, right shoulder sx, wrist sx, hernia repair, colonoscopy Past Anesthesia/Blood Transfusion Reactions: No Reported Reaction Past Psychological History: Anxiety Additional Psychological History / Comment(s): just placed on some new meds, hasn't been given dx. yet Smoking Status: Current every day smoker Past Alcohol Use History: None Reported Additional Past Alcohol Use History / Comment(s): Started smoking at age 16, 1/2 ppd, quit September 2019. Past Drug Use History: Marijuana Additional Drug Use History / Comment(s): Hx heavy Marijuana use daily use, quit Nov 2022. - Past Family History Mother Family Medical History: No Reported History Medications and Allergies Home Medications Medication Instructions Recorded Confirmed Type SUMAtriptan succinate [Imitrex] 50 mg PO DAILY PRN 12/12/17 11/07/23 History Pantoprazole Sodium [Protonix] 40 mg PO QAM 04/16/21 11/07/23 History Fenofibrate [Lofibra] 160 mg PO QAM 02/01/23 11/07/23 History Naproxen Sodium [Aleve] 220 mg PO BID PRN 04/22/23 11/07/23 History Gabapentin 600 mg PO TID 10/14/23 11/07/23 History Terbinafine [LamISIL] 250 mg PO DAILY 10/14/23 11/07/23 History Pregabalin [Lyrica] 150 mg PO BID 11/07/23 11/07/23 History Sennosides/Docusate Sodium [Senna 1 tab PO DAILY PRN 11/07/23 11/07/23 History Plus 8.6-50 mg Tablet] oxyCODONE-APAP 10-325MG [Percocet 1 tab PO TID PRN 11/07/23 11/07/23 History 10-325 mg] predniSONE [Deltasone] 20 mg PO BID 11/07/23 11/07/23 History Allergies Allergy/AdvReac Type Severity Reaction Status Date / Time aspirin AdvReac Nausea Verified 11/07/23 07:04 Physical Examination Gen: AOx3, NAD VSS stable at this time Integument: Incision is well-healing, there is no obvious erythema or active drainage appreciated. There is some generalized soft tissue swelling medial and lateral to the incision. Palpation: Tenderness with palpation to the paraspinal region of the lumbar spine ROM: Full range of motion all major muscle present bilateral upper and lower extremities, no focal deficits appreciated. Pain is reproduced with range of motion mainly with hip flexion of the bilateral lower extremities Sensory Exam: Senory exam to light touch is intact C5-T1 Senosry exam to light touch is intact L2-S1 Motor: 4/5 strength appreciated the bilateral lower extremities with hip flexion, knee extension, knee flexion, plantarflexion, dorsiflexion, EHL, FHL Reflexes: 2/4 in all UE and LE Negative clonus bilaterally Results - Labs Labs: Abnormal Lab Results - Last 24 Hours (Table) 11/06/23 11/06/23 Range/Units 16:46 16:46 WBC 17.9 H (3.8-10.6) k/uL RBC 4.06 L (4.30-5.90) m/uL Hgb 12.7 L (13.0-17.5) gm/dL Hct 38.5 L (39.0-53.0) % Plt Count 464 H (150-450) k/uL Neutrophils # 15.7 H (1.3-7.7) k/uL BUN 22 H (9-20) mg/dL Glucose 101 H (74-99) mg/dL H & H 11/06/23 Range/Units 16:46 Hgb 12.7 L (13.0-17.5) gm/dL Hct 38.5 L (39.0-53.0) % Result Diagrams: 11/06/23 16:46 11/06/23 16:46 - Diagnostic results CT Scan - lumbar: report reviewed, image reviewed Assessment and Plan Assessment: Postop fluid collection lumbar spine History of recent [id number] decompression and fusion, stable appearing hardware Leukocytosis Other medical comorbidities Plan: I was able to discuss the case, this to include with physical exam findings and imaging studies my attending physician. Patient was boarded for an incision and drainage with irrigation and debridement and hardware exploration for 11/07/2023. Patient was made n.p.o. after midnight last night. I was able to discuss the surgical procedure today at bedside with both the and patient. Dr. Holland was also available to discuss this with patient prior to surgery. Patient is in good understanding would like to proceed. Cultures to be obtained at surgery DVT prophylaxis, will begin subcu medication after surgery PT/OT evaluation after surgery Other medical specialty recommendations appreciated Further recommendations to follow
[2023-11-07] MEDS: GABAPENTIN 300 MG CAP PO SCH (15:49)
[2023-11-07] MEDS: CEFEPIME 2 GM in SODIUM CHLORIDE 0.9% 100 ML IVPB SCH (15:54)
[2023-11-07] MEDS: IV FLUID CONTINUATION 1,000 ML IV ONE ×2 (16:17→16:50)
[2023-11-07] MEDS: HYDROCORTISONE SUCCINATE 100 MG/2 ML VIAL IV STA (16:49)
[2023-11-07] MEDS: ONDANSETRON 4 MG/2 ML VIAL IVP STA (16:49)
[2023-11-07] MEDS ORDERED: PROPOFOL 10 MG/ML 20 ML VIAL IV ONE (17:04)
[2023-11-07] MEDS ORDERED: KETAMINE HCL IN 0.9 % NACL 50 MG/5 ML SYRINGE ONE (17:04)
[2023-11-07] MEDS ORDERED: ROCURONIUM 10 MG/ML (5 ML VIAL) IV ONE (17:04)
[2023-11-07] MEDS ORDERED: LIDOCAINE 1% INJ 10MG/ML (20 ML MDV) ONE (17:04)
[2023-11-07] MEDS ORDERED: MIDAZOLAM 2 MG/2 ML VIAL ONE (17:04)
[2023-11-07] MEDS ORDERED: fentaNYL (PF) 50 MCG/ML 2 ML AMP ONE (17:04)
[2023-11-07] MEDS ORDERED: SUCCINYLCHOLINE CHLORIDE 200 MG/10 ML VIAL IV ONE (17:04)
[2023-11-07] MEDS ORDERED: PHENYLEPHRINE 10 MG/ML VIAL ONE (17:04)
[2023-11-07] MEDS: VANCOMYCIN 1,000 MG VIAL MISCELLANE ONE ×2 (17:49→18:00)
[2023-11-07] MEDS: TOBRAMYCIN SULFATE 1.2 GM VIAL MISCELLANE ONE (17:49)
[2023-11-07] MEDS: GENTAMICIN 80 MG in SODIUM CHLORIDE 0.9% IRRIGATIO 3,000 ML IRRIGATION ONE (17:50)
[2023-11-07] MEDS: ceFAZolin 3,000 MG in SODIUM CHLORIDE 0.9% IRRIGATIO 3,000 ML IRRIGATION ONE (17:50)
[2023-11-07] MEDS: LACTATED RINGERS 1,000 ML IV ONE ×2 (18:23)
[2023-11-07] MEDS ORDERED: HYDROcodone/APAP 5-325MG 1 EACH TAB PO PRN (18:47)
[2023-11-07] MEDS ORDERED: ONDANSETRON 4 MG/2 ML VIAL IVP PRN (18:47)
[2023-11-07] MEDS ORDERED: HYDROcodone/APAP 10-325MG 1 EACH TAB PO PRN (18:47)
[2023-11-07] MEDS: HYDROmorphone 0.5 MG/0.5 ML SYRINGE IVP PRN (19:13)
--- NOTE | 2023-11-07 21:09 | P.HPOR ---
History of Present Illness H&P Date: 11/07/23 Chief Complaint: back pain Wiliam presents s/p revision L3-Pelvis decompression and fusion with increased pain, Leg pain, fevers and chills. He was seen in office last week and was doing OK, but deteriorated over the weekend. He presented with increasing pain, weakness, subjective fevers of 103 at home and general ill feeling. states he seems to be getting worse and not better. He denies any other sx at this time other than those from before. He states chills, fever, no SOB or CP at this time. Past Medical History Past Medical History: GERD/Reflux, Hyperlipidemia Additional Past Medical History / Comment(s): Frequent migraine headaches especially w/stressful situations. Pain and burning down both legs.resolved since 1st surgery. Scratches on LE's. History of Any Multi-Drug Resistant Organisms: None Reported Past Surgical History: Cholecystectomy Additional Past Surgical History / Comment(s): multiple back surgeries Past Anesthesia/Blood Transfusion Reactions: No Reported Reaction Past Psychological History: Anxiety Smoking Status: Former smoker Past Alcohol Use History: None Reported Past Drug Use History: Marijuana - Past Family History Mother Family Medical History: No Reported History Medications and Allergies Home Medications Medication Instructions Recorded Confirmed Type SUMAtriptan succinate [Imitrex] 50 mg PO DAILY PRN 12/12/17 11/07/23 History Pantoprazole Sodium [Protonix] 40 mg PO QAM 04/16/21 11/07/23 History Fenofibrate [Lofibra] 160 mg PO QAM 02/01/23 11/07/23 History Naproxen Sodium [Aleve] 220 mg PO BID PRN 04/22/23 11/07/23 History Gabapentin 600 mg PO TID 10/14/23 11/07/23 History Terbinafine [LamISIL] 250 mg PO DAILY 10/14/23 11/07/23 History Pregabalin [Lyrica] 150 mg PO BID 11/07/23 11/07/23 History Sennosides/Docusate Sodium [Senna 1 tab PO DAILY PRN 11/07/23 11/07/23 History Plus 8.6-50 mg Tablet] oxyCODONE-APAP 10-325MG [Percocet 1 tab PO TID PRN 11/07/23 11/07/23 History 10-325 mg] predniSONE [Deltasone] 20 mg PO BID 11/07/23 11/07/23 History Allergies Allergy/AdvReac Type Severity Reaction Status Date / Time aspirin AdvReac Nausea Verified 11/07/23 07:04 Physical Examination Osteopathic Statement: *. No significant issues noted on an osteopathic structural exam other than those noted in the History and Physical/Consult. TTP of the lumbar spine with flucctuence noted about the lumbar area. There is drainage from the previous drain hole on the right lower back. Incision is clean and healed without EEE. No drainge. There is pain with movement of any kind. He is generally ill appearing. 3/5 DF/PF on the LLE which is chronic. 4/5 all other UE and LE due to deconditioning. 2/4 DTR all. 2/4 Distal pules. Neg babinski, clonus or Nevarez's. SILT L2-S1 with chronic deficits in the L4- S1 on the left. Results CT shows seroma with superficial and subfacial fluid collections concerning for possible infectious process. Hardware stable. - Labs Labs: Abnormal Lab Results - Last 24 Hours (Table) 11/06/23 11/06/23 Range/Units 16:46 16:46 WBC 17.9 H (3.8-10.6) k/uL RBC 4.06 L (4.30-5.90) m/uL Hgb 12.7 L (13.0-17.5) gm/dL Hct 38.5 L (39.0-53.0) % Plt Count 464 H (150-450) k/uL Neutrophils # 15.7 H (1.3-7.7) k/uL BUN 22 H (9-20) mg/dL Glucose 101 H (74-99) mg/dL H & H 11/06/23 Range/Units 16:46 Hgb 12.7 L (13.0-17.5) gm/dL Hct 38.5 L (39.0-53.0) % Result Diagrams: 11/06/23 16:46 11/06/23 16:46 Assessment and Plan (1) Lumbar surgical wound fluid collection Current Visit: Yes Status: Acute Code(s): T81.89XA - OTH COMPLICATIONS OF PROCEDURES, NEC, INIT SNOMED Code(s): 911845091 (2) Intervertebral disc disorders with radiculopathy, lumbar region Current Visit: No Status: Acute Code(s): M51.16 - INTERVERTEBRAL DISC DISORDERS W RADICULOPATHY, LUMBAR REGION SNOMED Code(s): 742019767164012 (3) Intervertebral disc disorders with radiculopathy, lumbosacral region Current Visit: No Status: Acute Code(s): M51.17 - INTVRT DISC DISORDERS W RADICULOPATHY, LUMBOSACRAL REGION SNOMED Code(s): 58741164184167146 (4) Muscle wasting and atrophy, not elsewhere classified, left lower leg Current Visit: No Status: Acute Code(s): M62.562 - MUSCLE WASTING AND ATROPHY, NEC, LEFT LOWER LEG SNOMED Code(s): 682616701294316 (5) Other spondylosis with myelopathy, lumbar region Current Visit: No Status: Acute Code(s): M47.16 - OTHER SPONDYLOSIS WITH MYELOPATHY, LUMBAR REGION SNOMED Code(s): 05064489 (6) Other spondylosis with radiculopathy, lumbar region Current Visit: No Status: Acute Code(s): M47.26 - OTHER SPONDYLOSIS WITH RADICULOPATHY, LUMBAR REGION SNOMED Code(s): 702507438 (7) Other spondylosis with radiculopathy, lumbosacral region Current Visit: No Status: Acute Code(s): M47.27 - OTHER SPONDYLOSIS WITH RADICULOPATHY, LUMBOSACRAL REGION SNOMED Code(s): 005577998 (8) Pseudarthrosis after fusion or arthrodesis Current Visit: No Status: Acute Code(s): M96.0 - PSEUDARTHROSIS AFTER FUSION OR ARTHRODESIS SNOMED Code(s): 928242159 (9) Sciatic radiculitis Current Visit: No Status: Acute Code(s): M51.17 - INTVRT DISC DISORDERS W RADICULOPATHY, LUMBOSACRAL REGION SNOMED Code(s): 16512526 (10) Spinal stenosis, lumbar region with neurogenic claudication Current Visit: No Status: Acute Code(s): M48.062 - SPINAL STENOSIS, LUMBAR REGION WITH NEUROGENIC CLAUDICATION SNOMED Code(s): 66833295 (11) Lumbar spondylosis Current Visit: No Status: Chronic Code(s): M47.816 - SPONDYLOSIS W/O MYELOPATHY OR RADICULOPATHY, LUMBAR REGION SNOMED Code(s): 205378716 Plan: NPO Cont ABX ID consult Labs Plan for OR today for I&D.
--- NOTE | 2023-11-07 21:21 | P.OP ---
Date of Procedure: 11/07/23 Preoperative Diagnosis: Current Active Problems Lumbar surgical wound fluid collection (Acute) Pseudarthrosis after fusion or arthrodesis (Acute) Intervertebral disc disorders with radiculopathy, lumbosacral region (Acute) Intervertebral disc disorders with radiculopathy, lumbar region (Acute) Spinal stenosis, lumbar region with neurogenic claudication (Acute) Muscle wasting and atrophy, not elsewhere classified, left lower leg (Acute) Other spondylosis with myelopathy, lumbar region (Acute) Other spondylosis with radiculopathy, lumbosacral region (Acute) Other spondylosis with radiculopathy, lumbar region (Acute) Postoperative Diagnosis: Current Active Problems Lumbar surgical wound fluid collection (Acute) Pseudarthrosis after fusion or arthrodesis (Acute) Intervertebral disc disorders with radiculopathy, lumbosacral region (Acute) Intervertebral disc disorders with radiculopathy, lumbar region (Acute) Spinal stenosis, lumbar region with neurogenic claudication (Acute) Muscle wasting and atrophy, not elsewhere classified, left lower leg (Acute) Other spondylosis with myelopathy, lumbar region (Acute) Other spondylosis with radiculopathy, lumbosacral region (Acute) Other spondylosis with radiculopathy, lumbar region (Acute) Procedure(s) Performed: INCISION AND DRAINAGE WITH IRRIGATION AND DEBRIDEMENT SKIN, SOFT TISSUE, MUSCLE AND BONE LUMBAR SPINE 43J98A40 CM USING THE FOLLOWING: -SKIN KNIFE TO INCISE AND REMOVE SKIN AND NECROTIC SOFT TISSUES -CURETTE TO DEBRIDE SKIN, SOFT TISSUE AND BONE -RONGURE TO DEBRIDE BONE AND SOFT TISSUES -IRRIGATION TO FLUSH WOUND COMPLEX 4 LAYER CLOSURE LUMBAR SPINE [id number] CM PLACEMENT OF ABX BEADS Implants: STIMULAN BEADS Anesthesia: ERIK Surgeon: Hilario Holland Sec Reporting Consultant #1: Misael Guzmán (WAS PRESENT AND ASSISTED WITH ALL ASPECTS OF THE CASE FROM POSITION TO CLOSURE) Estimated Blood Loss (ml): 150 IV fluids (ml): 1,200 Urine output (ml): 0 Pathology: other (X2 SUPERFICIAL LUMBAR; X2 DEEP LUMBAR CULTURES) Condition: stable Disposition: PACU Indications for Procedure: 53 yo male presented 3 weeks s/p Lumbar revision surgery with increasing pain, debility, general illness and failure to progress. He was found to have high fevers subjectively at home of 103. In ED WBC were [address] showed post op fluid collection superficial and deep concerning for possible infective process vs seroma. He was admitted and taken to OR for evacuation and debridement. Description of Procedure: LUMBAR INCISION AND DRAINAGE WITH IRRIGATION AND DEBRIDEMENT The patient was seen and examined in the preoperative area. All preoperative protocols were followed. Informed consent was obtained, risks and benefits of the procedure were discussed at length. Risks including bleeding infection damage to the surrounding tissue and risk of reoperation were discussed with the patient. Risk of anesthesia up to and including was discussed with the patient. These are outlined in the risk review. They were willing to accept these risks and all of the risks of surgery. The patient was given a weight- based dose of antibiotics in the form of 2 g Ancef with a weight-based dose of vancomycin. The patient was seen and evaluated by the anesthesia team who deemed them fit for surgery. The site was marked, the patient was willing to proceed with the procedure. The patient was transferred to the operative suite by the Department of anesthesia. They were then drifted off to sleep by the department anesthesia and GETA was performed. The patient tolerated this well. [Rosa catheter was placed by nursing staff, atraumatically]. Once confirmation of lines and ventilation the patient was transferred to a [prone Micah table very carefully]. All bony prominences including wrists, elbows, axilla, chest, hips, and thighs, and feet were padded very well. Special attention was paid to the genitalia and these were padded accordingly. SCDs were placed on bilateral lower extremities and were connected. Arms were well padded and placed [on arm boards up and out in the 90/90 position]. Once in position, again we confirmed good ventilation capabilities and that lines were running appropriately. The patient's thoracolumbar spine was then exposed. 1010s were placed outlining the incision site. Standard alcohol was used to clean the incision site and allowed to dry. C-arm was used to biomark the patient and confirm level for incision which was marked with a skin marker. Operative briefing was performed with all teams and everyone in agreement to proceed. The patient was then prepped and draped in a normal sterile fashion. Timeout was then performed and all parties were in agreement with the procedure to be performed. Midline skin incision was then made over the previously bio marked area and dissection taken down to the fascia which was identified. The area which was open on the skin was ellipticized with a skin knife and removed. Previous drain tract was debrided and the tract was then removed using a skin knife and Bovie. There was fluid collection noted superficial in the subq tissues which was seromatous in nature and cultures of this were taken. We then split the facia which was under pressure and more seroma fluid was expressed from the area and x2 deep cultures were taken. Old sutures were removed. Superficial and deep tissues were debrided with curette, rongure and knife. 1L irricept was then placed in the wound and let stand for 1min then washed out with NSS. Further debridement was then done deep over the hardware which was intact. There were no areas or pockets of purulent material identified. There was normal scar tissues for 3 weeks PO. The dura was inspected and was intact without issues. We then irrigated the area with betadine solution 1L and again with Irrisept solution and let it stand for 1 minute. We then irrigated the area out with normal sterile saline. Further debridement was then done with curettes and Ricardo to remove any bony fragments or scar. We then once again irrigated with Betadine solution and 1 L. This was allowed to stand for 1 minute as well. We then irrigated this out with normal sterile saline and continued with debridement. We then irrigated with 3 L of an Ancef solution along with 3 L of gentamicin solution along with 6 L of normal sterile saline well debriding skin soft tissue and bone in this area removing any loose tissue or bony fragments. Once irrigation and debridement was completed we inspected the area and explored. There were good bony fragments and bone formation posterior lateral. There was no leak of CSF. There are no issues noted. Hemostasis was achieved. We then placed deep within the wound a drain subfascially. 2 g of vancomycin powder was placed deep in the room along with stimulated and beads which had tobramycin and vancomycin within them and there were small beads. Once these were placed and the area was secured we proceeded with layered closure first in the deep fascia with #1 PDS in a simple fashion. deep subcu tissues and closed with 0 vicryl superficial subcu tissues closed with 2-0 vicryl and skin was closed with 2-0 nylon in a simple fashion. wound edges approximated very well. the drain was then sewn in place with a nylon stitch. Previous drain area was debrided and closed with 2-0 nylon as well. The drain was connected and had good suction and inflow. The wound was then cleaned and dressed sterilely with Adaptic 4 x 4s ABDs and Ioband dressing. The patient was transferred back to their hospital bed atraumatically. [Drain continued to hold suction and were in a good position]. Patient was then awakened and extubated by the department of anesthesia having tolerated the procedure very well with no complications. They were transferred to the postoperative care unit in stable condition.
[2023-11-07] MEDS: PREGABALIN 75 MG CAP PO SCH (22:04)
[2023-11-07] MEDS: predniSONE 20 MG TAB PO SCH (22:04)
[2023-11-07] MEDS: CYCLOBENZAPRINE 5 MG TAB PO PRN (22:16)
[2023-11-07] MEDS: MAGNESIUM HYDROXIDE 2,400 MG/30 ML CUP PO PRN (22:41)
--- NOTE | 2023-11-07 22:49 | P.CONS ---
History of Present Illness - Reason for Consult Consult date: 11/07/23 Lumbar abscess Requesting physician: Keith Fry - Chief Complaint Lower back pain and fever x few days - History of Present Illness Patient is a 53-year-old male with a past medical history significant for hyperlipidemia reflux chronic back pain and this patient apparently underwent revision [id number] decompression and fusion about 2 weeks ago patient mention for the last 1 week started having increasing pain to the lower back area patient describing the pain to be sharp progressive getting worse almost 10 out of 10 in severity and without any radiation patient did have some fever and chills for the patient presented to the hospital, P denies having any bowel or bladder problem on presentation to the hospital patient was afebrile no fever have been ordered subsequently patient was not tachycardic hypotensive or hypoxic and no need for supplemental oxygen he did have elevated white count of 17.9 with a left shift creatinine 0.9 and electrolytes has been normal liver isms are normal urine has been negative blood cultures obtained which are cur rently pending patient did have a lumbar spine CT that has been suggestive of postoperative changes with multilevel hardware fixation extending from L3 to pelvis there is lobular rim-enhancing fluid collection concerning for an abscess patient was started on vancomycin has been admitted to the hospital infectious he was consulted for further management of antibiotic therapy patient is scheduled for I&D this afternoon Review of Systems Positive point and negatives has been mentioned in the HPI, complete review of systems was performed and all other systems are negative Past Medical History Past Medical History: GERD/Reflux, Hyperlipidemia Additional Past Medical History / Comment(s): Frequent migraine headaches especially w/stressful situations. Pain and burning down both legs.resolved since 1st surgery. Scratches on LE's. History of Any Multi-Drug Resistant Organisms: None Reported Past Surgical History: Cholecystectomy, Hernia Repair, Orthopedic Surgery Additional Past Surgical History / Comment(s): multiple back surgeries, right shoulder sx, wrist sx, hernia repair, colonoscopy Past Anesthesia/Blood Transfusion Reactions: No Reported Reaction Past Psychological History: Anxiety Additional Psychological History / Comment(s): just placed on some new meds, hasn't been given dx. yet Smoking Status: Current every day smoker Past Alcohol Use History: None Reported Additional Past Alcohol Use History / Comment(s): Started smoking at age 16, 1/2 ppd, quit September 2019. Past Drug Use History: Marijuana Additional Drug Use History / Comment(s): Hx heavy Marijuana use daily use, quit Nov 2022. - Past Family History Mother Family Medical History: No Reported History Medications and Allergies Home Medications Medication Instructions Recorded Confirmed Type SUMAtriptan succinate [Imitrex] 50 mg PO DAILY PRN 12/12/17 11/07/23 History Pantoprazole Sodium [Protonix] 40 mg PO QAM 04/16/21 11/07/23 History Fenofibrate [Lofibra] 160 mg PO QAM 02/01/23 11/07/23 History Naproxen Sodium [Aleve] 220 mg PO BID PRN 04/22/23 11/07/23 History Gabapentin 600 mg PO TID 10/14/23 11/07/23 History Terbinafine [LamISIL] 250 mg PO DAILY 10/14/23 11/07/23 History Pregabalin [Lyrica] 150 mg PO BID 11/07/23 11/07/23 History Sennosides/Docusate Sodium [Senna 1 tab PO DAILY PRN 11/07/23 11/07/23 History Plus 8.6-50 mg Tablet] oxyCODONE-APAP 10-325MG [Percocet 1 tab PO TID PRN 11/07/23 11/07/23 History 10-325 mg] predniSONE [Deltasone] 20 mg PO BID 11/07/23 11/07/23 History Cyclobenzaprine [Flexeril] 10 mg PO TID PRN #40 tab 11/11/23 Rx Sennosides/Docusate Sodium [Senna 1 each PO DAILY PRN #20 tab 11/11/23 Rx Plus 8.6-50 mg Tablet] oxyCODONE-APAP 10-325MG [Percocet 1 tab PO Q6HR PRN #28 tab 11/11/23 Rx 10-325 mg] Allergies Allergy/AdvReac Type Severity Reaction Status Date / Time aspirin AdvReac Nausea Verified 11/07/23 07:04 Physical Exam Vitals: Vital Signs Temp Pulse Pulse Resp BP BP Pulse Ox 11/07/23 08:00 97.7 F 70 19 113/75 98 11/07/23 07:16 98.0 F 71 18 108/68 99 11/07/23 05:30 73 16 108/59 98 11/06/23 23:57 77 18 104/65 96 09/29/24 19:13 98.4 F 93 16 100/68 99 11/06/23 15:23 98 F 98 16 125/78 97 Intake and Output 11/06/23 11/07/23 11/07/23 22:59 06:59 14:59 Other: Weight 81.647 kg 81.647 kg GENERAL DESCRIPTION: Middle-aged male lying in bed, no distress. No tachypnea or accessory muscle of respiration use. HEENT: Shows Pallor , no scleral icterus. Oral mucous membrane is dry. No pharyngeal erythema or thrush NECK: Trachea central, no thyromegaly. LUNGS: Unlabored breathing. Clear to auscultation anteriorly. No wheeze or crackle. HEART: S1, S2, regular rate and rhythm. No loud murmur ABDOMEN: Soft, no tenderness , guarding or rigidity, no organomegaly EXTREMITIES: No edema of feet. SKIN: No rash, no masses palpable. NEUROLOGICAL: The patient is awake, alert, oriented x3, mood and affect normal. Results CBC & Chem 7: 11/08/23 05:21 11/10/23 04:22 Labs: Abnormal Lab Results - Last 24 Hours (Table) 11/06/23 11/06/23 Range/Units 16:46 16:46 WBC 17.9 H (3.8-10.6) k/uL RBC 4.06 L (4.30-5.90) m/uL Hgb 12.7 L (13.0-17.5) gm/dL Hct 38.5 L (39.0-53.0) % Plt Count 464 H (150-450) k/uL Neutrophils # 15.7 H (1.3-7.7) k/uL BUN 22 H (9-20) mg/dL Glucose 101 H (74-99) mg/dL Assessment and Plan (1) Abscess in epidural space of lumbar spine Status: Acute Code(s): G06.1 - INTRASPINAL ABSCESS AND GRANULOMA SNOMED Code(s): 263047111 (2) Postoperative seroma Status: Acute Code(s): TKX3693 - SNOMED Code(s): 306081883 Plan: 1patient presented to hospital with worsening lower back pain also some fever in this patient who did have elevated white count and abdominal CT concerning for possible abscess formation versus postoperative seroma, in this patient who did have multiple surgery on the [id number] last 1 was about 2 weeks ago we will need to cover for the gram-positive as well as gram-negative pathogen 2-await surgical drainage and deep culture 3-check inflammatory markers 4-vancomycin pharmacy to dose target trough of 15 while watching kidney function and Vanco trough closely and will add cefepime for gram-negative coverage at the bedside multiple question concern were answered We will follow on clinical condition and cultures to further adjust medication if needed Thank you for this consultation we will follow the patient along with you Dictation was produced using [employer] dictation software. please excuse any grammatical, word or spelling errors. Time with Patient: Greater than 30
[2023-11-08 06:14] LABS: African American GFR (CKD) >90 (>60 ml/min/1.73 sqM); Anion Gap 5 mmol/L; Blood Urea Nitrogen 16 mg/dL (9-20); Calcium 8.8 mg/dL (8.4-10.2); Carbon Dioxide 23 mmol/L (22-30); Chloride 111 mmol/L (98-107); Glucose 124 mg/dL (74-99); Non-African American GFR(CKD) >90 (>60 ml/min/1.73 sqM); Potassium 4.2 mmol/L (3.5-5.1); Sodium 139 mmol/L (137-145)
[2023-11-08 06:28] LABS: C Reactive Protein 6.8 mg/dL (<1.0)
[2023-11-08 08:17] LABS: Basophils # (A) 0.02 X 10*3/uL (0.00-0.10); Basophils % (A) 0.2 %; Eosinophils # (A) 0.01 X 10*3/uL (0.04-0.35); Eosinophils % (A) 0.1 %; HCT 31.7 % (39.6-50.0); HGB 10.6 g/dL (13.0-17.0); Lymphocytes # (A) 0.71 X 10*3/uL (0.90-5.00); Lymphocytes % (A) 8.3 %; MCH 31.2 pg (27.0-32.0); MCHC 33.4 g/dL (32.0-37.0); MCV 93.2 FL (80.0-97.0); Mean Platelet Volume 10.4 FL (9.5-12.2); Monocytes # (A) 0.35 X 10*3/uL (0.20-1.00); Monocytes % (A) 4.1 %; NRBC Per 100 WBC 0.02 X 10*3/uL (0.00-0.01); Neutrophils # (A) 7.48 X 10*3/uL (1.80-7.70); Platelet Count 361 X 10*3/uL (140-440); RDW 13.6 % (11.5-14.5)
[2023-11-08] MEDS: PANTOPRAZOLE 40 MG TABLET PO SCH (08:35)
[2023-11-08] MEDS: SENNOSIDES-DOCUSATE SODIUM 1 EACH TAB PO PRN (08:35)
[2023-11-08 09:20] LABS: Erythrocyte Sedimentation Rate 18 mm/Hr (0-20)
[2023-11-08] MEDS: FENOFIBRATE 160 MG TAB PO SCH (10:20)
[2023-11-08] MEDS: oxyCODONE-APAP 10-325MG 1 EACH TAB PO PRN (11:15)
--- NOTE | 2023-11-08 13:12 | P.PN ---
Subjective Progress Note Date: 11/08/23 Principal diagnosis: Status post I&D abnormal fluid collection lumbar spine, antibiotic bead placement patient is evaluated at bedside, his was present also. Patient had a very rough morning with pain control. Patient seems like the back pain is slightly better than prior to surgery. Hemovac drain is putting out moderate bloody serosanguineous fluid at this time. Patient has not been out of bed at this time. Patient denies any headaches, lightheadedness, chest pain or shortness of breath Objective - Vital Signs Vital signs: Vital Signs Temp 98.1 F 11/08/23 11:58 Pulse 83 11/08/23 11:58 Resp 16 11/08/23 11:58 BP 125/83 11/08/23 11:58 Pulse Ox 93 L 11/08/23 11:58 FiO2 Intake & Output 11/07/23 11/08/23 11/08/23 18:59 06:59 18:59 Intake Total 1602 222 Output Total 100 2250 150 Balance 1502 -8 -150 Weight 81.647 kg Intake: IV 1602 Oral 222 Output: Drainage 150 Back 150 Urine 2250 Estimated Blood Loss 100 Other: Voiding Method Toilet Toilet # Voids 1 - Exam Gen: AOx3, NAD VSS stable at this time Integument: postop dressing is in good position and condition, Hemovac remains in good position and condition. Palpation: Tenderness with palpation to the paraspinal region of the lumbar spine ROM: Full range of motion all major muscle present bilateral upper and lower extremities, no focal deficits appreciated. Pain is reproduced with range of motion mainly with hip flexion of the bilateral lower extremities Sensory Exam: Senory exam to light touch is intact C5-T1 Senosry exam to light touch is intact L2-S1 Motor: 4/5 strength appreciated the bilateral lower extremities with hip flexion, knee extension, knee flexion, plantarflexion, dorsiflexion, EHL, FHL Reflexes: 2/4 in all UE and LE Negative clonus bilaterally - Labs CBC & Chem 7: 11/08/23 05:21 11/08/23 05:21 Labs: Abnormal Lab Results - Last 24 Hours (Table) 11/08/23 11/08/23 Range/Units 05:21 05:21 RBC 3.40 L (4.40-5.60) X 10*6/uL Hgb 10.6 L (13.0-17.0) g/dL Hct 31.7 L (39.6-50.0) % Lymphocytes # 0.71 L (0.90-5.00) X 10*3/uL Eosinophils # 0.01 L (0.04-0.35) X 10*3/uL NRBC/100 WBC Diff 0.02 H (0.00-0.01) X 10*3/uL Chloride 111 H (98-107) mmol/L Glucose 124 H (74-99) mg/dL C-Reactive Protein 6.8 H (<1.0) mg/dL Microbiology - Last 24 Hours (Table) 11/06/23 21:33 Blood Culture - Preliminary Blood Assessment and Plan Assessment: Postoperative day #1 status post I&D seroma lumbar spine, antibiotic bead placement History of recent [id number] decompression and fusion, stable appearing hardware Other medical comorbidities Plan: Pain control, had a long discussion with patient and family today at bedside regarding this. We will change patient's oral pain medication to Percocet 10 mg scheduled every 4 hours to start. The Dilaudid both 0.5 and 1 mg are available every 3 hours as needed. Patient will also have Flexeril 10 mg 3 times a day available as needed. We will keep the patient on scheduled gabapentin and Lyrica. Multiple stool softeners have been ordered and changed to scheduled instead of as needed. Encourage incentive spirometer DVT prophylaxis, will discuss medication options with my attending, continue SCDs and compression stockings PT/OT evaluation, LSO brace when up and ambulating. Recommend using a walker at all times Await culture and sensitivity results Monitor surgical dressing, plan for dressing change at bedside on 11/09/2023 Other medical specialty recommendations appreciated will continue to follow patient during hospital stay Time with Patient: Less than 30
--- NOTE | 2023-11-08 13:13 | P.PN ---
Subjective Progress Note Date: 11/08/23 Principal diagnosis: Reason for follow-up is lumbar fluid collection question of abscess Patient is a 53-year-old male with a past medical history significant for hyperlipidemia reflux chronic back pain and this patient apparently underwent revision [id number] decompression and fusion about 2 weeks ago presenting back to the hospital with increasing pain discomfort swelling to the lumbar spine and apparently fever did have abnormal CT suspicious for fluid collection. Patient was taken to the OR and the patient is status post I&D of the skin and soft tissue muscle and bones of the lumbar spine and drainage of the fluid as well as culture which are pending. On today's evaluation that is 11/08/2023,the patient remains to be afebrile, patient is on room air not requiring supplemental oxygen and denies any shortness of breath no chest pain or cough.Patient denies having any nausea or vomiting, no abdominal pain and no diarrhea has been reported, up still compl aining of pain to the lower back. Patient white count normalized to 8.60 creatinine 0.76 cultures are currently pending Objective - Vital Signs Vital signs: Vital Signs Temp 97.8 F 11/08/23 07:10 Pulse 66 11/08/23 07:10 Resp 16 11/08/23 07:10 BP 127/80 11/08/23 07:10 Pulse Ox 94 L 11/08/23 07:10 FiO2 Intake & Output 11/07/23 11/08/23 11/08/23 18:59 06:59 18:59 Intake Total 1602 222 Output Total 100 2250 150 Balance 1502 -8 -150 Weight 81.647 kg Intake: IV 1602 Oral 222 Output: Drainage 150 Back 150 Urine 2250 Estimated Blood Loss 100 Other: Voiding Method Toilet # Voids 1 - Exam GENERAL DESCRIPTION: Middle-age male lying in bed in no distress RESPIRATORY SYSTEM: Unlabored breathing , decreased breath sounds at bases HEART: S1 S2 regular rate and rhythm , ABDOMEN: Soft , no tenderness EXTREMITIES: No edema feet - Labs CBC & Chem 7: 11/08/23 05:21 11/08/23 05:21 Labs: Abnormal Lab Results - Last 24 Hours (Table) 11/08/23 11/08/23 Range/Units 05:21 05:21 RBC 3.40 L (4.40-5.60) X 10*6/uL Hgb 10.6 L (13.0-17.0) g/dL Hct 31.7 L (39.6-50.0) % Lymphocytes # 0.71 L (0.90-5.00) X 10*3/uL Eosinophils # 0.01 L (0.04-0.35) X 10*3/uL NRBC/100 WBC Diff 0.02 H (0.00-0.01) X 10*3/uL Chloride 111 H (98-107) mmol/L Glucose 124 H (74-99) mg/dL C-Reactive Protein 6.8 H (<1.0) mg/dL Assessment and Plan (1) Abscess in epidural space of lumbar spine Current Visit: Yes Status: Acute Code(s): G06.1 - INTRASPINAL ABSCESS AND GRANULOMA SNOMED Code(s): 761393364 Plan: 1patient presented to hospital with worsening lower back pain also some fever in this patient who did have elevated white count and abdominal CT concerning for possible abscess formation in this patient who did have multiple surgery on the [id number] last 1 was about 2 weeks ago before presentation to the hospital this patient status post I&D with the cultures currently pending, inflammatory markers were not significantly elevated 2-patient to continue with-vancomycin pharmacy to dose target trough of 15 and cefepime while waiting for the culture to finalize at the bedside questions answered Dictation was produced using [email or web address] dictation software. please excuse any grammatical, word or spelling errors. Time with Patient: Less than 30
[2023-11-08] MEDS: oxyCODONE-APAP 10-325MG 1 EACH TAB PO SCH (13:34)
[2023-11-08] MEDS: polyethylene glycoL 3350 17 GM POWD.PACK PO SCH (13:37)
[2023-11-08] MEDS: SENNOSIDES-DOCUSATE SODIUM 1 EACH TAB PO SCH (20:30)
[2023-11-08] MEDS: CYCLOBENZAPRINE 10 MG TAB PO PRN (22:24)
[2023-11-09] MEDS: ACETAMINOPHEN TAB 325 MG TAB PO PRN (01:16)
--- NOTE | 2023-11-09 06:04 | P.PN ---
Subjective Progress Note Date: 11/08/23 - History of Present Illness This is a pleasant 53 years old male with past medical history of multiple medical problems i, he was recently discharged from the hospital for recent back surgery for previous leg weakness with paresthesia and he underwent revision of L3-pelvis decompression and fusion, this is the third procedure for this purpose per patient. Patient states that over the last week his lower back pain was getting gradually worse, he rated as 10/10, it radiates to both legs, his left leg numb but this is from before surgery. His hip is also hurting. Is very difficult for him to walk. He has constipation but no other GI problem no urinary problem. No chest pain or dyspnea. No headache dizziness. He quit smoking 4 years ago, no alcohol. He uses marijuana at times He is afebrile, he has leukocytosis of 17,000. BMP and liver enzymes and urine analysis were negative CT of the lumbar spine showing lobular fluid collection along the posterior capsule of the spinal canal. Extended L3-L3 to upper sacrum 11/08/2023 Patient is seen and evaluated in follow-up status post revision of [id number] decompression and fusion currently maintained on IV antibiotics with infectious disease and orthopedics following. Patient is reporting significant amount of pain and reporting his pain is unmanaged. Patient has not been up out of the bed yet currently awaiting an LSO brace and PT/OT therapy. Patient needs to get up out of the bed more frequently as discussed with orthopedics. Continue bowel regimen and being made scheduled as opposed to as needed. Review of systems: Constitutional: No reports of fatigue, fever, or chills Cardiovascular: No reports of chest pain or palpitations Respiratory: No reports of shortness of breath or cough GI: No reports of nausea, vomiting, or diarrhea : No reports of dysuria or retention Neurovascular: reports of generalized weakness, lower back pain and uncontrolled pain All medications have been reviewed Physical exam: GENERAL: The patient is alert and oriented x3, not in any acute distress. Well developed, well nourished. Obese HEENT: Pupils are round and equally reacting to light. EOMI. No scleral icterus. No conjunctival pallor. Normocephalic, atraumatic. No pharyngeal erythema. No thyromegaly. CARDIOVASCULAR: S1 and S2 present. No murmurs, rubs, or gallops. PULMONARY: Chest is clear to auscultation, no wheezing , no crackles. ABDOMEN: Soft, nontender, nondistended, normoactive bowel sounds. No palpable organomegaly. -MUSCULOSKELETAL: No joint swelling or deformity. Patient difficult for him to move because of pain in the back area. Lower back vertical incision closed with no surrounding cellulitis or abnormal discharge EXTREMITIES: No cyanosis, clubbing, or pedal edema. NEUROLOGICAL: Gross neurological examination did not reveal any focal deficits. Diffusely weak SKIN: No rashes. no petechiae. Assessment: Sepsis secondary to Spinal abscess Recent revision of L3-pelvis decompression and fusion surgery Acute on chronic low back pain with radiculopathy Hyperlipidemia History of GERD History of migraine Obesity with a BMI of 30.9 GI prophylaxis DVT prophylaxis Full code Plan: Patient currently covered with IV vancomycin and IV cefepime with infectious disease following Continue with pain management per orthopedics. Patient reporting severe 10/10 pain with uncontrolled pain management Recommend working with PT/OT therapy daily and increase activity as tolerated. LSO brace when up and out of bed per orthopedics Continue with small frequent meals Continue bowel regimen and make it scheduled We will continue to follow with orthopedics during hospitalization. Thank you kindly for this consultation. The impression and plan of care has been dictated by Emili Sharpe, Nurse Practitioner as directed. Dr. Bessy MD I have performed a history and examination and MDM of this patient, discussed the same with the dictator, and agree with the dictator's assessment and plan as written ,documented as a scribe. Based on total visit time, I have performed more than 50% of the visit. Objective - Vital Signs Vital signs: Vital Signs Temp 97.8 F 11/08/23 07:10 Pulse 66 11/08/23 07:10 Resp 16 11/08/23 07:10 BP 127/80 11/08/23 07:10 Pulse Ox 94 L 11/08/23 07:10 FiO2 Intake & Output 11/07/23 11/08/23 11/08/23 18:59 06:59 18:59 Intake Total 1602 222 Output Total 100 2250 150 Balance 1502 -2027 -150 Weight 81.647 kg Intake: IV 1602 Oral 222 Output: Drainage 150 Back 150 Urine 2250 Estimated Blood Loss 100 Other: Voiding Method Toilet # Voids 1 - Labs CBC & Chem 7: 11/08/23 05:21 11/08/23 05:21 Labs: Abnormal Lab Results - Last 24 Hours (Table) 11/08/23 11/08/23 Range/Units 05:21 05:21 RBC 3.40 L (4.40-5.60) X 10*6/uL Hgb 10.6 L (13.0-17.0) g/dL Hct 31.7 L (39.6-50.0) % Lymphocytes # 0.71 L (0.90-5.00) X 10*3/uL Eosinophils # 0.01 L (0.04-0.35) X 10*3/uL NRBC/100 WBC Diff 0.02 H (0.00-0.01) X 10*3/uL Chloride 111 H (98-107) mmol/L Glucose 124 H (74-99) mg/dL C-Reactive Protein 6.8 H (<1.0) mg/dL
[2023-11-09] MEDS: VANCOMYCIN TROUGH DUE 1 EACH MISC MISCELLANE ONE (09:51)
--- NOTE | 2023-11-09 11:29 | P.PN ---
Subjective Progress Note Date: 11/09/23 Principal diagnosis: Reason for follow-up is lumbar fluid collection question of abscess Patient is a 53-year-old male with a past medical history significant for hyperlipidemia reflux chronic back pain and this patient apparently underwent revision [id number] decompression and fusion about 2 weeks ago presenting back to the hospital with increasing pain discomfort swelling to the lumbar spine and apparently fever did have abnormal CT suspicious for fluid collection. Patient was taken to the OR and the patient is status post I&D of the skin and soft tissue muscle and bones of the lumbar spine and drainage of the fluid as well as culture which are pending. On today's evaluation that is 11/09/2023, the patient continues to be afebrile, the patient is on room air and breathing comfortably, the Pt denies having any chest pain or cough, the patient denies having any abdominal pain no vomiting or any diarrhea patient mention improvement in the lower back pain and is feeling better. Patient did have a vancomycin trough of 15.6 cultures are currently pending Objective - Vital Signs Vital signs: Vital Signs Temp 97.6 F 11/09/23 00:57 Pulse 81 11/09/23 00:57 Resp 18 11/09/23 00:57 BP 133/72 11/09/23 00:57 Pulse Ox 98 11/09/23 00:57 FiO2 Intake & Output 11/08/23 11/09/23 11/09/23 18:59 06:59 18:59 Intake Total 880 Output Total 150 600 Balance 730 -600 Intake: Oral 880 Output: Drainage 150 Back 150 Urine 600 Other: Voiding Method Toilet Toilet # Voids 1 - Exam GENERAL DESCRIPTION: Middle-age male lying in bed in no distress RESPIRATORY SYSTEM: Unlabored breathing , decreased breath sounds at bases HEART: S1 S2 regular rate and rhythm , ABDOMEN: Soft , no tenderness EXTREMITIES: No edema feet - Labs CBC & Chem 7: 11/08/23 05:21 11/08/23 05:21 Labs: Microbiology - Last 24 Hours (Table) 11/07/23 18:00 Gram Stain - Preliminary Other - Other Wound Culture - Preliminary 11/07/23 18:00 Gram Stain - Preliminary Other - Other Wound Culture - Preliminary 11/07/23 18:00 Gram Stain - Preliminary Other - Other Wound Culture - Preliminary 11/07/23 18:00 Gram Stain - Preliminary Other - Other Wound Culture - Preliminary 11/06/23 21:33 Blood Culture - Preliminary Blood Assessment and Plan (1) Abscess in epidural space of lumbar spine Current Visit: Yes Status: Acute Code(s): G06.1 - INTRASPINAL ABSCESS AND GRANULOMA SNOMED Code(s): 595175533 Plan: 1patient presented to hospital with worsening lower back pain also some fever in this patient who did have elevated white count and abdominal CT concerning for possible abscess formation in this patient who did have multiple surgery on the [id number] last 1 was about 2 weeks ago before presentation to the hospital this patient status post I&D with the cultures currently pending, inflammatory markers were not significantly elevated 2-patient is afebrile white count has been normal cultures currently pending we will keep the patient on vancomycin and cefepime while waiting for the culture to finalize Dictation was produced using [employer] dictation software. please excuse any grammatical, word or spelling errors. Time with Patient: Less than 30
--- NOTE | 2023-11-09 12:30 | P.PN ---
Subjective Progress Note Date: 11/09/23 Principal diagnosis: Low back pain, lower extremity radiculopathy, fever Patient seen and examined this morning. Patient is resting comfortably in bed. He does report significant improvement in his low back pain and strength in his bilateral lower extremities sine the procedure. Patient was able to reposition himself to the side of the bed. Surgical incision of the lumbar spine is well- approximated with sutures intact. Hemovac drain is present to the right of the incision. New dressing has been applied. Continue to encourage patient to be up in chair with all meals. LSO brace is at bedside. Encourage patient to continue working with physical therapy and progressing with recovery. We are awaiting pending wound cultures. No acute concerns. Objective - Vital Signs Vital signs: Vital Signs Temp 97.6 F 11/09/23 00:57 Pulse 81 11/09/23 00:57 Resp 18 11/09/23 00:57 BP 133/72 11/09/23 00:57 Pulse Ox 98 11/09/23 00:57 FiO2 Intake & Output 11/08/23 11/09/23 11/09/23 18:59 06:59 18:59 Intake Total 880 Output Total 150 600 Balance 730 -600 Intake: Oral 880 Output: Drainage 150 Back 150 Urine 600 Other: Voiding Method Toilet Toilet # Voids 1 - Exam Physical Examination General: The patient is awake and alert, in no acute distress Skin: Skin is warm and dry with no obvious rashes or lesions. Surgical incision to the lumbar spine, edges are well approximated with sutures intact. Hemovac drain is patent. New dressing applied. Eye: Pupils are equal, round and reactive to light, extra-ocular movements are intact; there is normal conjunctiva bilaterally. Neck: The neck is supple, there is no tenderness and ROM intact. Cardiovascular: There is a regular rate and rhythm. No murmur, rub or gallop is appreciated. Respiratory: Respirations are non-labored, breath sounds are equal. Gastrointestinal: Soft, non-distended, non-tender abdomen. Back: There is no tenderness to palpation in the midline, paralumbar, parathoracic or buttocks region. There is no obvious deformity . Musculoskeletal: ROM limited secondary to pain and stiffness from surgical procedure. Right: Shoulder abduction 5/5, elbow flexors 5/5, wrist dorsiflexors 5/5. finger abductor 5/5, well tester 5/5, hip flexor 4/5, knee flexor 4/5, ankle dorsiflexor 4/5, ankle plantarflexion 4/5 and extensor hallucis 4/5. Left: Shoulder abduction 5/5, elbow flexors 5/5, wrist dorsiflexors 5/5. finger abductor 5/5, well tester 5/5, hip flexor 4/5, knee flexor 4/5, ankle dorsiflexor 4/5, ankle plantarflexion 4/5 and extensor hallucis 4/5. Neurological: CN 2-12 intact. There are no obvious motor or sensory deficits. Movement and coordination equal and intact. Sensory exam to light touch intact C5-T1 and intact from L2-S1. Reflexes 2/4 in bilateral upper and lower extremities. Negative Hoffmans, babinski, and clonus signs. Psychiatric: Cooperative, appropriate mood & affect, normal judgment. - Labs CBC & Chem 7: 11/08/23 05:21 11/08/23 05:21 Labs: Microbiology - Last 24 Hours (Table) 11/07/23 18:00 Gram Stain - Preliminary Other - Other 11/07/23 18:00 Gram Stain - Preliminary Other - Other 11/07/23 18:00 Gram Stain - Preliminary Other - Other 11/07/23 18:00 Gram Stain - Preliminary Other - Other 11/06/23 21:33 Blood Culture - Preliminary Blood Assessment and Plan Assessment: Postop day 2: I&D of the lumbar wound Plan: -Appreciate splunk consultant and team management. -Activity: Ambulate QID, OOB all meals, up and about, limit lifting bending twisting to less than 5 lbs. Use walker or cane if needed for stability. -Daily PT/OT, increase ambulation strength and balance. -Brace when up and about, not needed in bed or chair -Pain control: Adequate at this time -Meds: reviewed -GI ppx: senna, Miralax -DVT PPX: Heparin -Hygiene: Shower today. Maintain dressing clean and dry. Meticulous cleaning after BMs away from the incision site -Drains: Maintain for now. Continue to monitor and record output q shift. -Encourage IS 10x/hr -Dispo: Anticipate discharge home within the next 24-48hrs *I reviewed and discussed this case with my attending Dr. Holland, whom has reviewed this chart and films and is in agreement with assessment and plan of care as outlined above. I have personally seen and examined the patient, performed the documentation and the assessment and plan as written. Number of minutes spent on the visit: 20m.
[2023-11-10 05:27] LABS: African American GFR (CKD) >90 (>60 ml/min/1.73 sqM); Non-African American GFR(CKD) >90 (>60 ml/min/1.73 sqM)
--- NOTE | 2023-11-10 09:57 | P.PN ---
Subjective Progress Note Date: 11/09/23 - History of Present Illness This is a pleasant 53 years old male with past medical history of multiple medical problems i, he was recently discharged from the hospital for recent back surgery for previous leg weakness with paresthesia and he underwent revision of L3-pelvis decompression and fusion, this is the third procedure for this purpose per patient. Patient states that over the last week his lower back pain was getting gradually worse, he rated as 10/10, it radiates to both legs, his left leg numb but this is from before surgery. His hip is also hurting. Is very difficult for him to walk. He has constipation but no other GI problem no urinary problem. No chest pain or dyspnea. No headache dizziness. He quit smoking 4 years ago, no alcohol. He uses marijuana at times He is afebrile, he has leukocytosis of 17,000. BMP and liver enzymes and urine analysis were negative CT of the lumbar spine showing lobular fluid collection along the posterior capsule of the spinal canal. Extended L3-L3 to upper sacrum 11/08/2023 Patient is seen and evaluated in follow-up status post revision of [id number] decompression and fusion currently maintained on IV antibiotics with infectious disease and orthopedics following. Patient is reporting significant amount of pain and reporting his pain is unmanaged. Patient has not been up out of the bed yet currently awaiting an LSO brace and PT/OT therapy. Patient needs to get up out of the bed more frequently as discussed with orthopedics. Continue bowel regimen and being made scheduled as opposed to as needed. 11/09/2023 Patient is seen and evaluated in follow-up today currently sleeping in the chair although arousable. Patient is maintained on IV antibiotics with infectious disease following and orthopedics continuing with pain management. Patient reports his pain is currently controlled and has scheduled gabapentin and Percocet and is using Dilaudid along with Flexeril as needed. Patient has been up and walking per nursing staff and tolerating. Patient is afebrile with no reports of chest pain or shortness of breath. Cultures thus far preliminary show no isolated anaerobes to date and patient remains afebrile. Review of systems: Constitutional: No reports of fatigue, fever, or chills Cardiovascular: No reports of chest pain or palpitations Respiratory: No reports of shortness of breath or cough GI: No reports of nausea, vomiting, or diarrhea : No reports of dysuria or retention Neurovascular: reports of generalized weakness, lower back pain All medications have been reviewed Physical exam: GENERAL: The patient is asleep but arousable, alert and oriented x3, not in any acute distress. Well developed, well nourished. Obese HEENT: Pupils are round and equally reacting to light. EOMI. No scleral icterus. No conjunctival pallor. Normocephalic, atraumatic. No pharyngeal erythema. No thyromegaly. CARDIOVASCULAR: S1 and S2 present. No murmurs, rubs, or gallops. PULMONARY: Chest is clear to auscultation, no wheezing , no crackles. ABDOMEN: Soft, nontender, nondistended, normoactive bowel sounds. No palpable organomegaly. MUSCULOSKELETAL: No joint swelling or deformity. Surgical dressing intact and being changed per orthopedics EXTREMITIES: No cyanosis, clubbing, or pedal edema. NEUROLOGICAL: Gross neurological examination did not reveal any focal deficits. Diffusely weak SKIN: No rashes. no petechiae. Assessment: Sepsis secondary to Spinal abscess Recent revision of L3-pelvis decompression and fusion surgery Acute on chronic low back pain with radiculopathy Hyperlipidemia History of GERD History of migraine Obesity with a BMI of 30.9 GI prophylaxis DVT prophylaxis Full code Plan: Patient currently covered with IV vancomycin and IV cefepime with infectious disease following, preliminary culture showing no anaerobes to date Continue with pain management per orthopedics. Patient reporting severe 10/10 pain with uncontrolled pain management, Percocets and gabapentin has been scheduled and using as needed Dilaudid Recommend working with PT/OT therapy daily and increase activity as tolerated. LSO brace when up and out of bed per orthopedics Continue with small frequent meals Continue bowel regimen and continue scheduled, recommend holding if having loose stools or diarrhea We will continue to follow with orthopedics during hospitalization. Thank you kindly for this consultation. The impression and plan of care has been dictated by Emili Sharpe, Nurse Practitioner as directed. Dr. Bessy MD I have performed a history and examination and MDM of this patient, discussed the same with the dictator, and agree with the dictator's assessment and plan as written ,documented as a scribe. Based on total visit time, I have performed more than 50% of the visit. Objective - Vital Signs Vital signs: Vital Signs Temp 97.7 F 11/10/23 07:30 Pulse 82 11/10/23 07:30 Resp 18 11/10/23 07:30 BP 111/74 11/10/23 07:30 Pulse Ox 95 11/10/23 07:30 FiO2 Intake & Output 11/09/23 11/10/23 11/10/23 18:59 06:59 18:59 Output Total 600 100 Balance -600 -100 Output: Drainage 100 Back 100 Urine 600 Other: Voiding Method Toilet Toilet # Voids 3 - Labs CBC & Chem 7: 11/08/23 05:21 11/10/23 04:22 Labs: Microbiology - Last 24 Hours (Table) 11/07/23 18:00 Gram Stain - Preliminary Other - Other Wound Culture - Preliminary 11/07/23 18:00 Gram Stain - Preliminary Other - Other Wound Culture - Preliminary 11/07/23 18:00 Gram Stain - Preliminary Other - Other Wound Culture - Preliminary 11/07/23 18:00 Gram Stain - Preliminary Other - Other Wound Culture - Preliminary 11/07/23 18:00 Anaerobic Culture - Preliminary Other - Other 11/06/23 21:33 Blood Culture - Preliminary Blood
--- NOTE | 2023-11-10 11:25 | P.PN ---
Subjective Progress Note Date: 11/10/23 Principal diagnosis: Low back pain, lower extremity radiculopathy, fever Patient seen and examined this morning. Patient is resting comfortably in bed. He continues to report improvement in his low back pain and strength in his bilateral lower extremities since the procedure. Surgical incision of the lumbar spine, dressing is clean dry and intact Hemovac drain is present to the right of the incision. Discussed with patient that he will most likely be discharged home with the drain. Patient verbalizes understanding. Informed patient that we are still waiting for wound cultures results. Continue to encourage patient to be up in chair with all meals. LSO brace is at bedside. Encourage patient to continue working with physical therapy and progressing with recovery. No acute concerns. Objective - Vital Signs Vital signs: Vital Signs Temp 98.1 F 11/10/23 02:00 Pulse 76 11/10/23 02:00 Resp 17 11/09/23 20:00 BP 134/83 11/10/23 02:00 Pulse Ox 94 L 11/10/23 02:00 FiO2 Intake & Output 11/09/23 11/10/23 11/10/23 18:59 06:59 18:59 Output Total 600 100 Balance -600 -100 Output: Drainage 100 Back 100 Urine 600 Other: Voiding Method Toilet Toilet # Voids 3 - Exam Physical Examination General: The patient is awake and alert, in no acute distress Skin: Skin is warm and dry with no obvious rashes or lesions. Surgical incision to the lumbar spine, edges are well approximated with sutures intact. Hemovac drain is patent. New dressing applied. Eye: Pupils are equal, round and reactive to light, extra-ocular movements are intact; there is normal conjunctiva bilaterally. Neck: The neck is supple, there is no tenderness and ROM intact. Cardiovascular: There is a regular rate and rhythm. No murmur, rub or gallop is appreciated. Respiratory: Respirations are non-labored, breath sounds are equal. Gastrointestinal: Soft, non-distended, non-tender abdomen. Back: There is no tenderness to palpation in the midline, paralumbar, parathor acic or buttocks region. There is no obvious deformity . Musculoskeletal: ROM limited secondary to pain and stiffness from surgical procedure. Right: Shoulder abduction 5/5, elbow flexors 5/5, wrist dorsiflexors 5/5. finger abductor 5/5, senior mechanical design engineer 5/5, hip flexor 4/5, knee fle xor 4/5, ankle dorsiflexor 4/5, ankle plantarflexion 4/5 and extensor hallucis 4/5. Left: Shoulder abduction 5/5, elbow flexors 5/5, wrist dorsiflexors 5/5. finger abductor 5/5, senior mechanical design engineer 5/5, hip flexor 4/5, knee flexor 4/5, ankle dorsiflexor 4/5, ankle plantarflexion 4/5 and extensor hallucis 4/5. Neurological: CN 2-12 intact. There are no obvious motor or sensory deficits. Movement and coordination equal and intact. Sensory exam to light touch intact C5-T1 and intact from L2-S1. Reflexes 2/4 in bilateral upper and lower extremities. Negative Hoffmans, babinski, and clonus signs. Psychiatric: Cooperative, appropriate mood & affect, normal judgment. - Labs CBC & Chem 7: 11/08/23 05:21 11/10/23 04:22 Labs: Microbiology - Last 24 Hours (Table) 11/07/23 18:00 Anaerobic Culture - Preliminary Other - Other 11/06/23 21:33 Blood Culture - Preliminary Blood 11/07/23 18:00 Gram Stain - Preliminary Other - Other Wound Culture - Preliminary 11/07/23 18:00 Gram Stain - Preliminary Other - Other Wound Culture - Preliminary 11/07/23 18:00 Gram Stain - Preliminary Other - Other Wound Culture - Preliminary 11/07/23 18:00 Gram Stain - Preliminary Other - Other Wound Culture - Preliminary Assessment and Plan Assessment: Postop day 3: I&D of the lumbar wound Plan: -Appreciate devops consultant and team management. -Activity: Ambulate QID, OOB all meals, up and about, limit lifting bending tw isting to less than 5 lbs. Use walker or cane if needed for stability. -Daily PT/OT, increase ambulation strength and balance. -Brace when up and about, not needed in bed or chair -Pain control: Adequate at this time -Meds: reviewed -GI ppx: senna, Miralax -DVT PPX: Heparin -Hygiene: Shower today. Maintain dressing clean and dry. Meticulous cleaning after BMs away from the incision site -Drains: Maintain for now. Continue to monitor and record output q shift. -Encourage IS 10x/hr -Dispo: Awaiting results of wound cultures, anticipating discharge either later today or tomorrow 11/11/2023. Patient will be discharged home with drain and to return to office on Tuesday or Tuesday for removal. *I reviewed and discussed this case with my attending Dr. Holland, whom has reviewed this chart and films and is in agreement with assessment and plan of care as outlined above. I have personally seen and examined the patient, performed the documentation and the assessment and plan as written. Number of minutes spent on the visit: 20m.
--- NOTE | 2023-11-10 13:26 | P.PN ---
Subjective Progress Note Date: 11/10/23 Principal diagnosis: Reason for follow-up is lumbar fluid collection question of abscess Patient is a 53-year-old male with a past medical history significant for hyperlipidemia reflux chronic back pain and this patient apparently underwent revision [id number] decompression and fusion about 2 weeks ago presenting back to the hospital with increasing pain discomfort swelling to the lumbar spine and apparently fever did have abnormal CT suspicious for fluid collection. Patient was taken to the OR and the patient is status post I&D of the skin and soft tissue muscle and bones of the lumbar spine and drainage of the fluid as well as culture which are pending. On today's evaluation that is 11/10/2023, Patient is afebrile patient is currently on room air and denies having any shortness of breath, the patient denies any chest pain or cough, the patient denies any nausea vomiting did not have any abdominal pain and no diarrhea patient mention improvement to the lower back pain. Patient did have creatinine 0.85 culture has been pending stool for Objective - Vital Signs Vital signs: Vital Signs Temp 97.7 F 11/10/23 07:30 Pulse 82 11/10/23 07:30 Resp 18 11/10/23 07:30 BP 111/74 11/10/23 07:30 Pulse Ox 95 11/10/23 07:30 FiO2 Intake & Output 11/09/23 11/10/23 11/10/23 18:59 06:59 18:59 Output Total 600 100 Balance -600 -100 Output: Drainage 100 Back 100 Urine 600 Other: Voiding Method Toilet Toilet # Voids 3 - Exam GENERAL DESCRIPTION: Middle-age male lying in bed in no distress RESPIRATORY SYSTEM: Unlabored breathing , decreased breath sounds at bases HEART: S1 S2 regular rate and rhythm , ABDOMEN: Soft , no tenderness EXTREMITIES: No edema feet - Labs CBC & Chem 7: 11/08/23 05:21 11/10/23 04:22 Labs: Microbiology - Last 24 Hours (Table) 11/07/23 18:00 Gram Stain - Preliminary Other - Other Wound Culture - Preliminary 11/07/23 18:00 Gram Stain - Preliminary Other - Other Wound Culture - Preliminary 11/07/23 18:00 Gram Stain - Preliminary Other - Other Wound Culture - Preliminary 11/07/23 18:00 Gram Stain - Preliminary Other - Other Wound Culture - Preliminary 11/07/23 18:00 Anaerobic Culture - Preliminary Other - Other 11/06/23 21:33 Blood Culture - Preliminary Blood Assessment and Plan (1) Abscess in epidural space of lumbar spine Current Visit: Yes Status: Acute Code(s): G06.1 - INTRASPINAL ABSCESS AND GRANULOMA SNOMED Code(s): 149636297 Plan: 1patient presented to hospital with worsening lower back pain also some fever in this patient who did have elevated white count and abdominal CT concerning for possible abscess formation in this patient who did have multiple surgery on the [id number] last 1 was about 2 weeks ago before presentation to the hospital this patient status post I&D with the cultures currently pending, inflammatory markers were not significantly elevated 2-patient is afebrile white count has been normal cultures so far negative with normal inflammatory markers clinic suspicious low for infected seroma or an abscess we will go ahead and discontinue antibiotic and monitor the patient closely off antibiotic if remains to be afebrile and the cultures are negative by tomorrow may be able to go home from ID standpoint no antibiotics Dictation was produced using [employer] dictation software. please excuse any grammatical, word or spelling errors. Time with Patient: Less than 30
[2023-11-11 07:49] VITALS: BP 109/70; PULSE 76; RESP 16; TEMP 97.9
--- NOTE | 2023-11-11 08:23 | P.PN ---
Subjective Progress Note Date: 11/11/23 Principal diagnosis: Low back pain, lower extremity radiculopathy, fever Patient seen and examined this morning. Patient is resting comfortably in bed. He continues to report improvement in his low back pain and strength in his bilateral lower extremities since the procedure. Surgical incision of the lumbar spine, dressing is clean dry and intact Hemovac drain is present to the right of the incision. Discussed with patient that he will be discharged home with the drain. Patient may shower. Keep dressing on and remove after shower, use rubbing alcohol to incision to clean, pat dry and replace new dressing. Informed patient that we are still waiting for wound cultures results. Patient is cleared from orthopedic standpoint for discharge pending clearance from Dr. Dorsey. Continue to encourage patient to be up in chair with all meals. LSO brace is at bedside. Encourage patient to continue working with physical therapy and progressing with recovery. No acute concerns. Objective - Vital Signs Vital signs: Vital Signs Temp 97.9 F 11/11/23 07:12 Pulse 76 11/11/23 07:12 Resp 16 11/11/23 07:12 BP 109/70 11/11/23 07:12 Pulse Ox 94 L 11/11/23 07:12 FiO2 Intake & Output 11/10/23 11/11/23 11/11/23 18:59 06:59 18:59 Output Total 100 85 Balance -100 -85 Output: Drainage 100 85 Back 100 85 Other: Voiding Method Toilet # Voids 2 - Exam Physical Examination General: The patient is awake and alert, in no acute distress Skin: Skin is warm and dry with no obvious rashes or lesions. Surgical incision to the lumbar spine, edges are well approximated with sutures intact. Hemovac drain is patent. Dressing is clean dry and intact. Eye: Pupils are equal, round and reactive to light, extra-ocular movements are intact; there is normal conjunctiva bilaterally. Neck: The neck is supple, there is no tenderness and ROM intact. Cardiovascular: There is a regular rate and rhythm. No murmur, rub or gallop is appreciated. Respiratory: Respirations are non-labored, breath sounds are equal. Gastrointestinal: Soft, non-distended, non-tender abdomen. Back: There is no tenderness to palpation in the midline, paralumbar, parathoracic or buttocks region. There is no obvious deformity . Musculoskeletal: ROM limited secondary to pain and stiffness from surgical procedure. Right: Shoulder abduction 5/5, elbow flexors 5/5, w rist dorsiflexors 5/5. finger abductor 5/5, radiosonde operator 5/5, hip flexor 4/5, knee flexor 4/5, ankle dorsiflexor 4/5, ankle plantarflexion 4/5 and extensor hallucis 4/5. Left: Shoulder abduction 5/5, elbow flexors 5/5, wrist dorsiflexors 5/5. finger abductor 5/5, radiosonde operator 5/5, hip flexor 4/5, knee flexor 4/5, ankle dorsiflexor 4/5, ankle plantarflexion 4/5 and extensor hallucis 4/5. Neurological: CN 2-12 intact. There are no obvious motor or sensory deficits. Movement and coordination equal and intact. Sensory exam to light touch intact C5-T1 and intact from L2-S1. Reflexes 2/4 in bilateral upper and lower extremities. Negative Hoffmans, babinski, and clonus signs. Psychiatric: Cooperative, appropriate mood & affect, normal judgment. - Labs CBC & Chem 7: 11/08/23 05:21 11/10/23 04:22 Labs: Microbiology - Last 24 Hours (Table) 11/06/23 21:33 Blood Culture - Preliminary Blood 11/07/23 18:00 Anaerobic Culture - Preliminary Other - Other 11/07/23 18:00 Anaerobic Culture - Preliminary Other - Other 11/07/23 18:00 Anaerobic Culture - Preliminary Other - Other 11/07/23 18:00 Gram Stain - Preliminary Other - Other Wound Culture - Preliminary 11/07/23 18:00 Gram Stain - Preliminary Other - Other Wound Culture - Preliminary 11/07/23 18:00 Gram Stain - Preliminary Other - Other Wound Culture - Preliminary 11/07/23 18:00 Gram Stain - Preliminary Other - Other Wound Culture - Preliminary Assessment and Plan Assessment: Postop day 4: I&D of the lumbar wound Plan: -Appreciate [employer] product consultant and team management. -Activity: Ambulate QID, OOB all meals, up and about, limit lifting bending twisting to less than 5 lbs. Use walker or cane if needed for stability. -Daily PT/OT, increase ambulation strength and balance. -Brace when up and about, not needed in bed or chair -Pain control: Adequate at this time -Meds: reviewed -GI ppx: senna, Miralax -DVT PPX: Heparin -Hygiene: Shower today. Maintain dressing clean and dry. Meticulous cleaning after BMs away from the incision site -Drains: Maintain for now. Continue to monitor and record output q shift. -Encourage IS 10x/hr -Dispo: Awaiting results of wound cultures, anticipating discharge later today 11/11/2023 pending clearance from infectious disease. Patient will be discharged home with drain and to return to office on Tuesday or Tuesday for removal. *I reviewed and discussed this case with my attending Dr. Holland, whom has reviewed this chart and films and is in agreement with assessment and plan of care as outlined above. I have personally seen and examined the patient, performed the documentation and the assessment and plan as written. Number of minutes spent on the visit: 20m.
--- NOTE | 2023-11-11 08:43 | P.DS ---
Providers Date of admission: 11/06/23 20:23 Expected date of discharge: 11/11/23 Attending physician: Hilario Holland DO Consults: 11/06/23 20:36 Consult Physician Urgent Consulting Provider: Salma Raines Consult Reason/Comments: medical mgmt Do you want consulting provider notified?: Yes, Notify in am Consult Physician Urgent Consulting Provider: Jesse Dorsey Consult Reason/Comments: lumbar abscess Do you want consulting provider notified?: Yes, Notify in am Primary care physician: Reginald [facility] Course: Hospital Course: The patient was evaluated preoperatively and found to have the diagnosis of Postop seroma. They underwent appropriate preoperative care and were willing to undergo the intended procedure. They underwent a successful I&D of the lumbar spine, were recovered appropriately and sent to the floor. While on the floor they worked with physical therapy, occupational therapy and nursing to enhance their recovery experience. Their pain was well controlled through their stay and they were started on appropriate medications, DVT ppx modalities, activity and dietary needs. Daily labs were monitored closely, and transfusions were only use d when necessary. Medicine as well as other consulting services have made their input and have helped with our team approach and multidisciplinary care. PT milestones have been met and passed and they have made the recommendation of home for this patient and treating providers agree with this care path. The patient will be discharged home with appropriate medications, instructions and follow-up information and in stable condition. Patient Condition at Discharge: Good Plan - Discharge Summary Discharge Rx Participant: No New Discharge Prescriptions: New Cyclobenzaprine [Flexeril] 10 mg PO TID PRN #40 tab PRN Reason: Pain Sennosides/Docusate Sodium [Senna Plus 8.6-50 mg Tablet] 1 each PO DAILY PRN #20 tab PRN Reason: Constipation oxyCODONE-APAP 10-325MG [Percocet 10-325 mg] 1 tab PO Q6HR PRN #28 tab PRN Reason: Pain No Action SUMAtriptan succinate [Imitrex] 50 mg PO DAILY PRN PRN Reason: Migraine Headache Terbinafine [LamISIL] 250 mg PO DAILY predniSONE [Deltasone] 20 mg PO BID oxyCODONE-APAP 10-325MG [Percocet 10-325 mg] 1 tab PO TID PRN PRN Reason: Pain Sennosides/Docusate Sodium [Senna Plus 8.6-50 mg Tablet] 1 tab PO DAILY PRN PRN Reason: Constipation Pantoprazole Sodium [Protonix] 40 mg PO QAM Fenofibrate [Lofibra] 160 mg PO QAM Naproxen Sodium [Aleve] 220 mg PO BID PRN PRN Reason: Pain Gabapentin 600 mg PO TID Pregabalin [Lyrica] 150 mg PO BID Discharge Medication List SUMAtriptan succinate [Imitrex] 50 mg PO DAILY PRN 12/12/17 [History] Pantoprazole Sodium [Protonix] 40 mg PO QAM 04/16/21 [History] Fenofibrate [Lofibra] 160 mg PO QAM 02/01/23 [History] Naproxen Sodium [Aleve] 220 mg PO BID PRN 04/22/23 [History] Gabapentin 600 mg PO TID 10/14/23 [History] Terbinafine [LamISIL] 250 mg PO DAILY 10/14/23 [History] Pregabalin [Lyrica] 150 mg PO BID 11/07/23 [History] Sennosides/Docusate Sodium [Senna Plus 8.6-50 mg Tablet] 1 tab PO DAILY PRN 11/07/23 [History] oxyCODONE-APAP 10-325MG [Percocet 10-325 mg] 1 tab PO TID PRN 11/07/23 [History] predniSONE [Deltasone] 20 mg PO BID 11/07/23 [History] Cyclobenzaprine [Flexeril] 10 mg PO TID PRN #40 tab 11/11/23 [Rx] Sennosides/Docusate Sodium [Senna Plus 8.6-50 mg Tablet] 1 each PO DAILY PRN #20 tab 11/11/23 [Rx] oxyCODONE-APAP 10-325MG [Percocet 10-325 mg] 1 tab PO Q6HR PRN #28 tab 11/11/23 [Rx] Follow up Appointment(s)/Referral(s): Bethany Harris NPC [Nurse Practitioner] - 11/14/23 Reginald Wesley DO [Primary Care Provider] - 1-2 days Patient Instructions/Handouts: Hemovac Drain Care (DC) Activity/Diet/Wound Care/Special Instructions: Activity: Ambulate as tolerated with walker, change position every 2 hours. Hygiene: Patient may shower. Keep dressing on and remove after shower, use rubbing alcohol to incision to clean, pat dry and replace new dressing. Pain management: Take as prescribed, utilize ice therapy, NO HEAT. Follow up with FRANCHESKA Sims in office on Tuesday11/14/23 for removal of drain. Re cord output daily. Discharge Disposition: HOME SELF-CARE
[2023-11-11 09:21] VITALS: BMI 30.9
--- NOTE | 2023-11-11 10:30 | P.PN ---
Subjective Progress Note Date: 11/10/23 - History of Present Illness This is a pleasant 53 years old male with past medical history of multiple medical problems i, he was recently discharged from the hospital for recent back surgery for previous leg weakness with paresthesia and he underwent revision of L3-pelvis decompression and fusion, this is the third procedure for this purpose per patient. Patient states that over the last week his lower back pain was getting gradually worse, he rated as 10/10, it radiates to both legs, his left leg numb but this is from before surgery. His hip is also hurting. Is very difficult for him to walk. He has constipation but no other GI problem no urinary problem. No chest pain or dyspnea. No headache dizziness. He quit smoking 4 years ago, no alcohol. He uses marijuana at times He is afebrile, he has leukocytosis of 17,000. BMP and liver enzymes and urine analysis were negative CT of the lumbar spine showing lobular fluid collection along the posterior capsule of the spinal canal. Extended L3-L3 to upper sacrum 11/08/2023 Patient is seen and evaluated in follow-up status post revision of L6amllpl decompression and fusion currently maintained on IV antibiotics with infectious disease and orthopedics following. Patient is reporting significant amount of pain and reporting his pain is unmanaged. Patient has not been up out of the bed yet currently awaiting an LSO brace and PT/OT therapy. Patient needs to get up out of the bed more frequently as discussed with orthopedics. Continue bowel regimen and being made scheduled as opposed to as needed. 11/09/2023 Patient is seen and evaluated in follow-up today currently sleeping in the chair although arousable. Patient is maintained on IV antibiotics with infectious disease following and orthopedics continuing with pain management. Patient reports his pain is currently controlled and has scheduled gabapentin and Percocet and is using Dilaudid along with Flexeril as needed. Patient has been up and walking per nursing staff and tolerating. Patient is afebrile with no reports of chest pain or shortness of breath. Cultures thus far preliminary show no isolated anaerobes to date and patient remains afebrile. 11/10/2023 Patient is seen in follow-up today with no acute overnight issues noted. Patient has been up and walking reports his pain is improved and currently controlled. Patient is passing gas and having bowel movements and has been tolerating diet. Cultures thus far remain negative and discussed with infectious disease and will be closely monitored off antibiotic therapy. P atient is afebrile with no reports of chest pain or shortness of breath. Review of systems: Constitutional: No reports of fatigue, fever, or chills Cardiovascular: No reports of chest pain or palpitations Respiratory: No reports of shortness of breath or cough GI: No reports of nausea, vomiting, or diarrhea : No reports of dysuria or retention Neurovascular: reports of generalized weakness, lower back pain although feels improved All medications have been reviewed Physical exam: GENERAL: The patient is awake, alert and oriented x3, not in any acute distress. Well developed, well nourished. Obese HEENT: Pupils are round and equally reacting to light. EOMI. No scleral icterus. No conjunctival pallor. Normocephalic, atraumatic. No pharyngeal erythema. No thyromegaly. CARDIOVASCULAR: S1 and S2 present. No murmurs, rubs, or gallops. PULMONARY: Chest is clear to auscultation, no wheezing , no crackles. ABDOMEN: Soft, nontender, nondistended, normoactive bowel sounds. No palpable organomegaly. MUSCULOSKELETAL: No joint swelling or deformity. Surgical dressing intact and being changed per orthopedics EXTREMITIES: No cyanosis, clubbing, or pedal edema. NEUROLOGICAL: Gross neurological examination did not reveal any focal deficits. Diffusely weak SKIN: No rashes. no petechiae. Assessment: Sepsis secondary to Spinal abscess, cultures remain negative Recent revision of L3-pelvis decompression and fusion surgery Acute on chronic low back pain with radiculopathy Hyperlipidemia History of GERD History of migraine Obesity with a BMI of 30.9 GI prophylaxis DVT prophylaxis Full code Plan: Patient currently covered with IV vancomycin and IV cefepime with infectious disease following, cultures continue to remain negative to date and ID recommen ds monitoring closely off antibiotic therapy Continue with pain management per orthopedics. Patient reporting improvements in current regimen and per nursing staff has not required IV Dilaudid Recommend working with PT/OT therapy daily and increase activity as tolerated. LSO brace when up and out of bed per orthopedics Continue with small frequent meals Continue bowel regimen and continue scheduled, recommend holding if having loose stools or diarrhea We will continue to follow with orthopedics during hospitalization. Thank you kindly for this consultation. Patient is medically stable once cleared by orthopedics The impression and plan of care has been dictated by Emili Sharpe, Nurse Practitioner as directed. Dr. Bessy MD I have performed a history and examination and MDM of this patient, discussed the same with the dictator, and agree with the dictator's assessment and plan as written ,documented as a scribe. Based on total visit time, I have performed more than 50% of the visit. Objective - Vital Signs Vital signs: Vital Signs Temp 97.7 F 11/10/23 07:30 Pulse 82 11/10/23 07:30 Resp 18 11/10/23 07:30 BP 111/74 11/10/23 07:30 Pulse Ox 95 11/10/23 07:30 FiO2 Intake & Output 11/09/23 11/10/23 11/10/23 18:59 06:59 18:59 Output Total 600 100 Balance -600 -100 Output: Drainage 100 Back 100 Urine 600 Other: Voiding Method Toilet Toilet # Voids 3 - Labs CBC & Chem 7: 11/08/23 05:21 11/10/23 04:22 Labs: Microbiology - Last 24 Hours (Table) 11/07/23 18:00 Gram Stain - Preliminary Other - Other Wound Culture - Preliminary 11/07/23 18:00 Gram Stain - Preliminary Other - Other Wound Culture - Preliminary 11/07/23 18:00 Gram Stain - Preliminary Other - Other Wound Culture - Preliminary 11/07/23 18:00 Gram Stain - Preliminary Other - Other Wound Culture - Preliminary 11/07/23 18:00 Anaerobic Culture - Preliminary Other - Other 11/06/23 21:33 Blood Culture - Preliminary Blood
--- NOTE | 2023-11-11 12:47 | P.PN ---
Subjective Progress Note Date: 11/11/23 Principal diagnosis: Reason for follow-up is lumbar fluid collection question of abscess Patient is a 53-year-old male with a past medical history significant for hyperlipidemia reflux chronic back pain and this patient apparently underwent revision [id number] decompression and fusion about 2 weeks ago presenting back to the hospital with increasing pain discomfort swelling to the lumbar spine and apparently fever did have abnormal CT suspicious for fluid collection. Patient was taken to the OR and the patient is status post I&D of the skin and soft tissue muscle and bones of the lumbar spine and drainage of the fluid as well as culture which are pending. On today's evaluation that is 11/11/2023, patient has been afebrile, patient is breathing comfortably and is currently on room air, patient denies having any significant cough no chest pain, patient denies nausea vomiting or diarrhea and no abdominal pain, the patient pain to the abdominal spine area has decreased in intensity no drainage feeling better wants to go home. Patient did have a creatinine of 0.85 and will be culture has been negative anaerobe cultures are pending patient did have a sed rate of 18 normal CRP was 6.8 lactic acid normal Objective - Vital Signs Vital signs: Vital Signs Temp 97.9 F 11/11/23 07:12 Pulse 76 11/11/23 07:12 Resp 16 11/11/23 07:12 BP 109/70 11/11/23 07:12 Pulse Ox 94 L 11/11/23 07:12 FiO2 Intake & Output 11/10/23 11/11/23 11/11/23 18:59 06:59 18:59 Output Total 100 85 Balance -100 -85 Weight 81.647 kg Output: Drainage 100 85 Back 100 85 Other: Voiding Method Toilet # Voids 2 - Labs CBC & Chem 7: 11/08/23 05:21 11/10/23 04:22 Labs: Microbiology - Last 24 Hours (Table) 11/07/23 18:00 Gram Stain - Final Other - Other Wound Culture - Final 11/07/23 18:00 Gram Stain - Final Other - Other Wound Culture - Final 11/07/23 18:00 Gram Stain - Final Other - Other Wound Culture - Final 11/07/23 18:00 Gram Stain - Final Other - Other Wound Culture - Final 11/06/23 21:33 Blood Culture - Preliminary Blood 11/07/23 18:00 Anaerobic Culture - Preliminary Other - Other 11/07/23 18:00 Anaerobic Culture - Preliminary Other - Other 11/07/23 18:00 Anaerobic Culture - Preliminary Other - Other Assessment and Plan (1) Abscess in epidural space of lumbar spine Status: Acute Code(s): G06.1 - INTRASPINAL ABSCESS AND GRANULOMA SNOMED Code(s): 703610168 (2) Postoperative seroma Status: Acute Code(s): TZY7201 - SNOMED Code(s): 512290445 Plan: 1patient presented to hospital with worsening lower back pain also some fever in this patient who did have elevated white count and abdominal CT concerning for possible abscess formation in this patient who did have multiple surgery on the [id number] last 1 was about 2 weeks ago before presentation to the hospital t his patient status post I&D with the cultures currently pending, inflammatory markers were not significantly elevated 2-patient is afebrile white count has been normal cultures so far negative with normal inflammatory markers clinic suspicious low for infected seroma or an abscess, patient did well off antibiotics for 24 hours should be able to go home without antibiotics detail discussion with the patient and his to keep the area dry and aseptic for the next 1 to 2 weeks till the stitches are out if they notice any redness or drainage when he develops any fever to let me know right away patient is scheduled to follow-up with the orthopedic surgeon next week Dictation was produced using [employer] dictation software. please excuse any grammatical, word or spelling errors. Time with Patient: Less than 30
--- NOTE | 2023-11-15 06:44 | P.PN ---
Subjective Progress Note Date: 11/11/23 - History of Present Illness This is a pleasant 53 years old male with past medical history of multiple medical problems i, he was recently discharged from the hospital for recent back surgery for previous leg weakness with paresthesia and he underwent revision of L3-pelvis decompression and fusion, this is the third procedure for this purpose per patient. Patient states that over the last week his lower back pain was getting gradually worse, he rated as 10/10, it radiates to both legs, his left leg numb but this is from before surgery. His hip is also hurting. Is very difficult for him to walk. He has constipation but no other GI problem no urinary problem. No chest pain or dyspnea. No headache dizziness. He quit smoking 4 years ago, no alcohol. He uses marijuana at times He is afebrile, he has leukocytosis of 17,000. BMP and liver enzymes and urine analysis were negative CT of the lumbar spine showing lobular fluid collection along the posterior capsule of the spinal canal. Extended L3-L3 to upper sacrum 11/08/2023 Patient is seen and evaluated in follow-up status post revision of [id number] decompression and fusion currently maintained on IV antibiotics with infectious disease and orthopedics following. Patient is reporting significant amount of pain and reporting his pain is unmanaged. Patient has not been up out of the bed yet currently awaiting an LSO brace and PT/OT therapy. Patient needs to get up out of the bed more frequently as discussed with orthopedics. Continue bowel regimen and being made scheduled as opposed to as needed. 11/09/2023 Patient is seen and evaluated in follow-up today currently sleeping in the chair although arousable. Patient is maintained on IV antibiotics with infectious disease following and orthopedics continuing with pain management. Patient reports his pain is currently controlled and has scheduled gabapentin and Percocet and is using Dilaudid along with Flexeril as needed. Patient has been up and walking per nursing staff and tolerating. Patient is afebrile with no reports of chest pain or shortness of breath. Cultures thus far preliminary show no isolated anaerobes to date and patient remains afebrile. 11/10/2023 Patient is seen in follow-up today with no acute overnight issues noted. Patient has been up and walking reports his pain is improved and currently controlled. Patient is passing gas and having bowel movements and has been tolerating diet. Cultures thus far remain negative and discussed with infectious disease and will be closely monitored off antibiotic therapy. P emerson is afebrile with no reports of chest pain or shortness of breath. 11/11/2023 Patient is seen and evaluated in follow-up today no acute overnight issues noted being scheduled for discharge home by orthopedics today. Patient will be going home without antibiotics and being closely monitored off antibiotic therapy per ID recommendations and will follow-up with orthopedics as well as ID in the outpatient setting. Patient instructed to continue with bowel regimen and also outpatient follow-up with his primary care provider. Patient is medically stable once cleared by orthopedics and ID. Review of systems: Constitutional: No reports of fatigue, fever, or chills Cardiovascular: No reports of chest pain or palpitations Respiratory: No reports of shortness of breath or cough GI: No reports of nausea, vomiting, or diarrhea : No reports of dysuria or retention Neurovascular: reports of generalized weakness, lower back pain although feels improved All medications have been reviewed Physical exam: GENERAL: The patient is awake, alert and oriented x3, not in any acute distress. Well developed, well nourished. Obese HEENT: Pupils are round and equally reacting to light. EOMI. No scleral icterus. No conjunctival pallor. Normocephalic, atraumatic. No pharyngeal erythema. No th yromegaly. CARDIOVASCULAR: S1 and S2 present. No murmurs, rubs, or gallops. PULMONARY: Chest is clear to auscultation, no wheezing , no crackles. ABDOMEN: Soft, nontender, nondistended, normoactive bowel sounds. No palpable organomegaly. MUSCULOSKELETAL: No joint swelling or deformity. Surgical dressing intact and being changed per orthopedics EXTREMITIES: No cyanosis, clubbing, or pedal edema. NEUROLOGICAL: Gross neurological examination did not reveal any focal deficits. Diffusely weak SKIN: No rashes. no petechiae. Assessment: Sepsis secondary to Spinal abscess, cultures remain negative Recent revision of L3-pelvis decompression and fusion surgery Acute on chronic low back pain with radiculopathy Hyperlipidemia History of GERD History of migraine Obesity with a BMI of 30.9 GI prophylaxis DVT prophylaxis Full code Plan: Patient currently covered with IV vancomycin and IV cefepime with infectious disease following, cultures continue to remain negative to date and ID recommends monitoring closely off antibiotic therapy Continue with pain management per orthopedics. Patient reporting improvements in current regimen and per nursing staff has not required IV Dilaudid Recommend working with PT/OT therapy daily and increase activity as tolerated. LSO brace when up and out of bed per orthopedics Continue with small frequent meals Continue bowel regimen and continue scheduled, recommend holding if having loose stools or diarrhea We will continue to follow with orthopedics during hospitalization. Thank you kindly for this consultation. Patient is medically stable once cleared by orthopedics and plan is for discharge home today. The impression and plan of care has been dictated by Emili Sharpe, Nurse Practitioner as directed. Dr. Bessy MD I have performed a history and examination and MDM of this patient, discussed th e same with the dictator, and agree with the dictator's assessment and plan as written ,documented as a scribe. Based on total visit time, I have performed more than 50% of the visit. Objective - Vital Signs Vital signs: Vital Signs Temp 97.9 F 11/11/23 07:12 Pulse 76 11/11/23 07:12 Resp 16 11/11/23 07:12 BP 109/70 11/11/23 07:12 Pulse Ox 94 L 11/11/23 07:12 FiO2 Intake & Output 11/10/23 11/11/23 11/11/23 18:59 06:59 18:59 Output Total 100 85 Balance -100 -85 Weight 81.647 kg Output: Drainage 100 85 Back 100 85 Other: Voiding Method Toilet # Voids 2 - Labs CBC & Chem 7: 11/08/23 05:21 11/10/23 04:22 Labs: Microbiology - Last 24 Hours (Table) 11/07/23 18:00 Gram Stain - Final Other - Other Wound Culture - Final 11/07/23 18:00 Gram Stain - Final Other - Other Wound Culture - Final 11/07/23 18:00 Gram Stain - Final Other - Other Wound Culture - Final 11/07/23 18:00 Gram Stain - Final Other - Other Wound Culture - Final 11/06/23 21:33 Blood Culture - Preliminary Blood 11/07/23 18:00 Anaerobic Culture - Preliminary Other - Other 11/07/23 18:00 Anaerobic Culture - Preliminary Other - Other 11/07/23 18:00 Anaerobic Culture - Preliminary Other - Other
== END 2023-11-11 12:13 | disposition home or self-care (01) | DRG 856 ==
LOC: EC 15:17 → 4SSUR 20:23 → 5NMEDONC 22:19 → 4SSUR 11-08 19:46
PROVIDERS: ADMIT Orthopaedic Surgery; ATTEND Orthopaedic Surgery
PROC: 0W9L00Z Drainage of Lower Back with Drainage Device, Open Approach (ICD-10-PCS; 2023-11-07)
PROC: 3E0 Administration, Physiological Systems and Anatomical Regions, Introduction (ICD-10-PCS; 2023-11-07)
PROC: 0QB00ZZ Excision of Lumbar Vertebra, Open Approach (ICD-10-PCS; principal; 2023-11-07 12:25)
DX: T81.42XA Infection following a procedure, deep incisional surgical site, initial encounter (principal); G06.1 Intraspinal abscess and granuloma; M47.16 Other spondylosis with myelopathy, lumbar region; M51.06 Intervertebral disc disorders with myelopathy, lumbar region; M96.0 Pseudarthrosis after fusion or arthrodesis; T81.44XA Sepsis following a procedure, initial encounter; E66.9 Obesity, unspecified; E78.5 Hyperlipidemia, unspecified; M51.16 Intervertebral disc disorders with radiculopathy, lumbar region; M47.26 Other spondylosis with radiculopathy, lumbar region; M48.062 Spinal stenosis, lumbar region with neurogenic claudication; M62.562 Muscle wasting and atrophy, not elsewhere classified, left lower leg; K21.9 Gastro-esophageal reflux disease without esophagitis; G89.29 Other chronic pain; K59.00 Constipation, unspecified; Y83.8 Other surgical procedures as the cause of abnormal reaction of the patient, or of later complication, without mention of misadventure at the time of the procedure; Z68.30 Body mass index [BMI] 30.0-30.9, adult; Z87.891 Personal history of nicotine dependence; Z79.899 Other long term (current) drug therapy
CPT/HCPCS: 36410; 36415; 72132; 76937; 80048; 80053; 80202; 81003; 82565; 83605; 85025; 85652; 86140; 87040; 87070; 87075; 87205; 96361; 96365; 96366; 96367; 96375; 96376; 99285

== ENCOUNTER 2023-11-15 04:43 | Emergency (ER) | payer MEDICARE ==
--- NOTE | 2023-11-15 05:25 | ED ---
General Adult HPI - General Source: patient Mode of arrival: ambulatory Limitations: no limitations <Natanael Blount - Last Filed: 11/15/23 06:27> <Margarito Nielson - Last Filed: 11/15/23 09:37> - General Chief complaint: Extremity Problem,Nontraumatic Stated complaint: IV Site Pain and Swelling Time Seen by Provider: 11/15/23 05:06 - History of Present Illness Initial comments: Dictation was produced using [employer] dictation software. please excuse any grammatical, word or spelling errors. Chief Complaint: 53-year-old male presents to the emergency department for left arm pain History of Present Illness: Patient is a 53-year-old male he states that he was here 4 days ago for back surgery. Apparently during his hospital stay there was difficulty obtaining IV access. Ultimately an ultrasound was used and patient had a IV placed and one of the veins in his left biceps area. States that a day or 2 later started to feel swelling and in his left arm. Denies any fever, chills or night sweats. No chest pain or shortness of breath. The ROS documented in this emergency department record has been reviewed and confirmed by me. Those systems with pertinent positive or negative responses have been documented in the HPI. All other systems are other negative and/or noncontributory. (Natanael Blount) - Related Data Home Medications Medication Instructions Recorded Confirmed SUMAtriptan succinate [Imitrex] 50 mg PO DAILY PRN 12/12/17 11/07/23 Pantoprazole Sodium [Protonix] 40 mg PO QAM 04/16/21 11/07/23 Fenofibrate [Lofibra] 160 mg PO QAM 02/01/23 11/07/23 Naproxen Sodium [Aleve] 220 mg PO BID PRN 04/22/23 11/07/23 Gabapentin 600 mg PO TID 10/14/23 11/07/23 Terbinafine [LamISIL] 250 mg PO DAILY 10/14/23 11/07/23 Pregabalin [Lyrica] 150 mg PO BID 11/07/23 11/07/23 Sennosides/Docusate Sodium [Senna 1 tab PO DAILY PRN 11/07/23 11/07/23 Plus 8.6-50 mg Tablet] oxyCODONE-APAP 10-325MG [Percocet 1 tab PO TID PRN 11/07/23 11/07/23 10-325 mg] predniSONE [Deltasone] 20 mg PO BID 11/07/23 11/07/23 Previous Rx's Medication Instructions Recorded Cyclobenzaprine [Flexeril] 10 mg PO TID PRN #40 tab 11/11/23 Sennosides/Docusate Sodium [Senna 1 each PO DAILY PRN #20 tab 11/11/23 Plus 8.6-50 mg Tablet] oxyCODONE-APAP 10-325MG [Percocet 1 tab PO Q6HR PRN #28 tab 11/11/23 10-325 mg] Apixaban [Eliquis Starter Pack 5 - 10 mg PO DIRECTED 30 Days 11/15/23 (for VTE)] #1 each Allergies Allergy/AdvReac Type Severity Reaction Status Date / Time adhesive Allergy Rash/Hives Verified 11/15/23 04:45 aspirin AdvReac Nausea Verified 11/15/23 04:45 Review of Systems ROS Other: All systems not noted in ROS Statement are negative. <Natanael Blount - Last Filed: 11/15/23 06:27> ROS Other: All systems not noted in ROS Statement are negative. <Margarito Nielson - Last Filed: 11/15/23 09:37> ROS Statement: Those systems with pertinent positive or pertinent negative responses have been documented in the HPI. Past Medical History Past Medical History: GERD/Reflux, Hyperlipidemia Additional Past Medical History / Comment(s): Frequent migraine headaches especially w/stressful situations. Pain and burning down both legs.resolved since 1st surgery. Scratches on LE's. History of Any Multi-Drug Resistant Organisms: None Reported Past Surgical History: Cholecystectomy, Hernia Repair, Orthopedic Surgery Additional Past Surgical History / Comment(s): multiple back surgeries X3, right shoulder sx, wrist sx, hernia repair, colonoscopy Past Anesthesia/Blood Transfusion Reactions: No Reported Reaction Past Psychological History: Anxiety Smoking Status: Former smoker Past Alcohol Use History: None Reported Past Drug Use History: Marijuana - Past Family History Mother Family Medical History: No Reported History <Natanael Blount - Last Filed: 11/15/23 06:27> General Exam Limitations: no limitations <Natanael Blount - Last Filed: 11/15/23 06:27> - General Exam Comments Initial Comments: General: Well-appearing, nontoxic, no acute distress. Head: Normocephalic, atraumatic Eyes: PERRLA, EOMI ENT: Airway patent Chest: Nonlabored breathing Skin: No visual rash, normal skin tone Neuro: Alert and oriented 3 Musculoskeletal: No gross abnormalities Left upper extremity: Mild edema to the left biceps area (Natanael Blount) Course Vital Signs 11/15/23 11/15/23 04:46 08:35 Temperature 98 F 98.3 F Pulse Rate 95 87 Respiratory 24 16 Rate Blood Pressure 112/68 124/82 O2 Sat by Pulse 94 L 95 Oximetry Medical Decision Making <Natanael Blount - Last Filed: 11/15/23 06:27> <Margarito Nielson - Last Filed: 11/15/23 09:37> - Medical Decision Making Was pt. sent in by a medical professional or institution (, PA, CHRONIC MANAGER, urgent care, hospital, or usp...) When possible be specific @ -No Did you speak to anyone other than the patient for history (EMS, parent, family, police, friend...)? What history was obtained from this source @ -No Did you review nursing and triage notes (agree or disagree)? Why? @ -I reviewed and agree with nursing and triage notes Were old charts reviewed (outside hosp., previous admission, EMS record, old EKG, old radiological studies, urgent care reports/EKG's, usp records)? Report findings @ -No old charts were reviewed Differential Diagnosis (chest pain, altered mental status, abdominal pain women, abdominal pain men, vaginal bleeding, musculoskeletal, weakness, fever, dyspnea, syncope, headache, dizziness, GI bleed, back pain, seizure, CVA, palpatations, mental health)? @ -DVT, cellulitis, thrombophlebitis EKG interpreted by me (3pts min.). @ -None done X-rays interpreted by me (1pt min.). @ -None done CT interpreted by me (1pt min.). @ -None done U/S interpreted by me (1pt. min.). @ -Pending What testing was considered but not performed or refused? (CT, X-rays, U/S, labs)? Why? @ -None What meds were considered but not given or refused? Why? @ -None Was smoking cessation discussed for >3mins.? @ -No Were there social determinants of health that impacted care today? How? (Homelessness, low income, unemployed, alcoholism, drug addiction, transportation, low edu. Level, literacy, decrease access to med. care, [place] [facility], rehab)? @ -No Was there de-escalation of care discussed even if they declined (Discuss DNR or withdrawal of care, Hospice)? DNR status @ -No What co-morbidities impacted this encounter? (DM, HTN, Smoking, COPD, CAD, Cancer, CVA, ARF, Chemo, Hep., AIDS, mental health diagnosis, sleep apnea, morbid obesity)? @ -None Was patient admitted / discharged? Hospital course, mention meds given and route, prescriptions, significant lab abnormalities, going to OR and other pertinent info. @ -53-year-old male presents to the emergency department with pain and swelling symptoms at IV insertion site in his left biceps area from 4 days ago. Vital signs upon arrival are within acceptable limits. Patient denies any chest pain or shortness of breath. Pending left upper extremity venous duplex ultrasound Patient care signed out to Dr. Nielson at 7:00 AM (Natanael Blount) Patient signed out to me pending results of left upper extremity ultrasound. Patient was recently in the hospital twice over the last month. Originally had revision of of a lumbar spine surgery with Dr. Holland on 10/21/2023. On 11/07/2023, patient required an additional surgery for surgical wound fluid collection which was cultured out and after being treated with antibiotics was unremarkable was discharged home on November 10 in good condition. During that stay had multiple IVs in the left upper extremity. Began noticing swelling over the last few days with some pain in the bicep. Swelling also in the lower left forearm. Presents for further evaluation at this time. Ultrasound is interpreted myself does reveal left upper extremity DVT. Confirm this with r adiologist Dr. Hook. Updated the patient. I have no concern for PE at this time. Denies chest pain or shortness of breath. No other symptoms other than the swelling and mild pain in the left upper extremity. I spoke with the orthopedic midlevel provider Misael who works with Dr. Holland to confirm that patient has no contraindications for anticoagulation at this time. Misael stated there are no known anticoagulation contraindications. Patient to follow-up with the office or they will consult if patient is admitted. I spoke with LYNN Mcnulty who works with on-call vascular surgeon Dr. Rosa who is currently in a procedure. Discussed admission versus discharge. States that patient is typically discharged home on Eliquis and thus there is another reason for admission at this time. However if no other reason, recommend discharge home on Eliquis, initiating dosing here in the department, and follow-up with Dr. Rosa next week. Return if worsening symptoms. I spoke with the patient regarding this plan as well as the findings on ultrasound. They would like to go home. I believe this is reasonable. Strict return precautions are discussed. Patient will be given a dose of 10 mg of oral Eliquis as well as a coupon for 1 month free and a prescription for 1 month of Eliquis. Instructions to follow-up with Dr. Rosa and Dr. Holland. Patient was in agreement this plan. Strict return precautions discussed. Diagnosis/symptom? @ -Left upper extremity DVT Acute, or Chronic, or Acute on Chronic? @ -Acute Uncomplicated (without systemic symptoms) or Complicated (systemic symptoms)? @ -Uncomplicated Side effects of treatment? @ -[none] Exacerbation, Progression, or Severe Exacerbation] @ -[no] Poses a threat to life or bodily function? @ -Unlikely at this time (Margarito Nielson) Disposition <Natanael Blount - Last Filed: 11/15/23 06:27> Is patient prescribed a controlled substance at d/c from ED?: No Time of Disposition: 09:15 <Margarito Nielson - Last Filed: 11/15/23 09:37> Clinical Impression: Left upper extremity deep vein thrombosis Disposition: HOME SELF-CARE Condition: Fair Instructions (If sedation given, give patient instructions): Apixaban (By mouth), Deep Vein Thrombosis (ED) Prescriptions: Apixaban [Eliquis Starter Pack (for VTE)] 5 - 10 mg PO DIRECTED 30 Days #1 each Referrals: Reginald Wesley DO [Primary Care Provider] - 1-2 days Jewell Rosa DO [STAFF PHYSICIAN] - 1-2 days Hilario Holland DO [Doctor of Osteopathic Medicine] - 1-2 days
--- NOTE | 2023-11-15 08:05 | US ---
EXAMINATION TYPE: US venous doppler duplex UE LT DATE OF EXAM: 11/15/2023 COMPARISON: NONE CLINICAL INDICATION: Male, 53 years old with history of arm swelling from IV; recent IV placed, now s welling and redness at medial left arm, no h/o dvt TECHNIQUE: Grayscale, color Doppler and spectral Doppler imaging of the upper extremity. SIDE PERFORMED: Left FINDINGS: Left Arm: Negative for DVT internal echoes that do not compress within basilic vein of the upper an d lower arm on the left Grayscale, color doppler, spectral doppler imaging performed of the deep veins of the upper extremiti es. IMPRESSION: Suspect DVT. [facility], , 11/15/2023 8:03 AM
[2023-11-15 08:39] VITALS: BP 124/82; PULSE 87; RESP 16; TEMP 98.3
[2023-11-15] MEDS: APIXABAN 5 MG TAB PO STA (09:36)
== END 2023-11-15 09:50 | disposition home or self-care (01) ==
LOC: EC 04:43
CPT/HCPCS: 99283

== ENCOUNTER 2023-12-11 11:40 | Inpatient (IN) | payer MEDICARE, OTHER ==
--- NOTE | 2023-12-11 12:27 | ED ---
General Adult HPI - General Chief complaint: Back Pain/Injury Stated complaint: Fall-Back pain Time Seen by Provider: 12/11/23 11:58 Source: patient Mode of arrival: ambulatory Limitations: no limitations - History of Present Illness Initial comments: Dictation was produced using [employer] dictation software. please excuse any grammatical, word or spelling errors. Chief Complaint: 53-year-old male with back pain History of Present Illness: Patient is 53-year-old male with back surgery by Dr. Piña send. States that he needed some revisions due to some complications with infections. Patient fell on . States that his back pain seems to be worse. Called Dr. Piña symptoms told to come to the emergency department for further evaluation. Family at the bedside is worried that his wound is dehiscing. The ROS documented in this emergency department record has been reviewed and confirmed by me. Those systems with pertinent positive or negative responses have been documented in the HPI. All other systems are other negative and/or noncontributory. - Related Data Home Medications Medication Instructions Recorded Confirmed SUMAtriptan succinate [Imitrex] 50 mg PO DAILY PRN 12/12/17 11/07/23 Pantoprazole Sodium [Protonix] 40 mg PO QAM 04/16/21 11/07/23 Fenofibrate [Lofibra] 160 mg PO QAM 02/01/23 11/07/23 Naproxen Sodium [Aleve] 220 mg PO BID PRN 04/22/23 11/07/23 Gabapentin 600 mg PO TID 10/14/23 11/07/23 Terbinafine [LamISIL] 250 mg PO DAILY 10/14/23 11/07/23 Pregabalin [Lyrica] 150 mg PO BID 11/07/23 11/07/23 Sennosides/Docusate Sodium [Senna 1 tab PO DAILY PRN 11/07/23 11/07/23 Plus 8.6-50 mg Tablet] oxyCODONE-APAP 10-325MG [Percocet 1 tab PO TID PRN 11/07/23 11/07/23 10-325 mg] predniSONE [Deltasone] 20 mg PO BID 11/07/23 11/07/23 Previous Rx's Medication Instructions Recorded Cyclobenzaprine [Flexeril] 10 mg PO TID PRN #40 tab 11/11/23 Sennosides/Docusate Sodium [Senna 1 each PO DAILY PRN #20 tab 11/11/23 Plus 8.6-50 mg Tablet] oxyCODONE-APAP 10-325MG [Percocet 1 tab PO Q6HR PRN #28 tab 11/11/23 10-325 mg] Apixaban [Eliquis Starter Pack 5 - 10 mg PO DIRECTED 30 Days 11/15/23 (for VTE)] #1 each Allergies Allergy/AdvReac Type Severity Reaction Status Date / Time adhesive Allergy Rash/Hives Verified 12/11/23 11:49 aspirin AdvReac Nausea Verified 12/11/23 11:49 Review of Systems ROS Statement: Those systems with pertinent positive or pertinent negative responses have been documented in the HPI. ROS Other: All systems not noted in ROS Statement are negative. Past Medical History Past Medical History: GERD/Reflux, Hyperlipidemia Additional Past Medical History / Comment(s): Frequent migraine headaches especially w/stressful situations. Pain and burning down both legs.resolved since 1st surgery. Scratches on LE's. History of Any Multi-Drug Resistant Organisms: None Reported Past Surgical History: Cholecystectomy, Hernia Repair, Orthopedic Surgery Additional Past Surgical History / Comment(s): multiple back surgeries X3, right shoulder sx, wrist sx, hernia repair, colonoscopy Past Anesthesia/Blood Transfusion Reactions: No Reported Reaction Past Psychological History: Anxiety Smoking Status: Former smoker Past Alcohol Use History: None Reported Past Drug Use History: Marijuana - Past Family History Mother Family Medical History: No Reported History General Exam - General Exam Comments Initial Comments: PHYSICAL EXAM: General Impression: Alert and oriented x3, n acute distress secondary to pain HEENT: Normocephalic atraumatic, extra-ocular movements intact, pupils equal and reactive to light bilaterally, mucous membranes moist. Cardiovascular: Heart regular rate and rhythm Chest: Able to complete full sentences, no retractions, no tachypnea Abdomen: abdomen soft, non-tender, non-distended, no organomegaly Musculoskeletal: Pulses present and equal in all extremities, no peripheral edema Motor: no focal deficits noted Neurological: CN II-XII grossly intact, no focal motor or sensory deficits noted Skin: Intact with no visualized rashes, surgical site clean dry intact no dehiscence noted Psych: Normal affect and mood Limitations: no limitations Course Vital Signs 12/11/23 12/11/23 11:45 13:00 Temperature 97.9 F Pulse Rate 100 94 Respiratory 16 16 Rate Blood Pressure 117/81 113/87 O2 Sat by Pulse 100 98 Oximetry Medical Decision Making - Medical Decision Making Was pt. sent in by a medical professional or institution (, PA, LICENSED OCCUPATIONAL THERAPY ASSISTANT, urgent care, hospital, or halfway...) When possible be specific @ -No Did you speak to anyone other than the patient for history (EMS, parent, family, police, friend...)? What history was obtained from this source @ -No Did you review nursing and triage notes (agree or disagree)? Why? @ -I reviewed and agree with nursing and triage notes Were old charts reviewed (outside hosp., previous admission, EMS record, old EKG, old radiological studies, urgent care reports/EKG's, halfway records)? Report findings @ -No old charts were reviewed Differential Diagnosis (chest pain, altered mental status, abdominal pain women, abdominal pain men, vaginal bleeding, musculoskeletal, weakness, fever, dyspnea, syncope, headache, dizziness, GI bleed, back pain, seizure, CVA, palpatations, mental health)? @ -Differential Back Pain: Strain, zoster, cauda equina syndrome, epidural abscess, vertebral osteomyelitis, discitis, fracture, subluxation, disc herniation, DJD, spinal stenosis, dissection, AAA, pancreatitis, peptic ulcer disease, pyelonephritis, kidney stone, this is not meant to be an all-inclusive list. EKG interpreted by me (3pts min.). @ -None done X-rays interpreted by me (1pt min.). @ -None done CT interpreted by me (1pt min.). @ -CT of the lumbar spine shows displaced pedicle screw U/S interpreted by me (1pt. min.). @ -None done What testing was considered but not performed or refused? (CT, X-rays, U/S, labs)? Why? @ -None What meds were considered but not given or refused? Why? @ -None Was smoking cessation discussed for >3mins.? @ -No Were there social determinants of health that impacted care today? How? (Homelessness, low income, unemployed, alcoholism, drug addiction, transportation, low edu. Level, literacy, decrease access to med. care, care home, rehab)? @ -No Was there de-escalation of care discussed even if they declined (Discuss DNR or withdrawal of care, Hospice)? DNR status @ -No What co-morbidities impacted this encounter? (DM, HTN, Smoking, COPD, CAD, Cancer, CVA, ARF, Chemo, Hep., AIDS, mental health diagnosis, sleep apnea, morbid obesity)? @ -None Was patient admitted / discharged? Hospital course, mention meds given and route, prescriptions, significant lab abnormalities, going to OR and other pertinent info. @ -53-year-old male presents with back pain. He fell couple days ago. Vital signs stable. Patient in distress from back pain. CT shows displaced pedicle screw. Case discussed with spine surgeon Dr. Holland will request patient be admitted with medicine consultation. Patient given analgesics. Did you discuss the management of the patient with other professionals (professionals i.e. , PA, LICENSED OCCUPATIONAL THERAPY ASSISTANT, lab, RT, psych nurse, social sciences lecturer, field crop harvest contractor, teacher, neighborhood conservation officer, therapeutic case manager)? Give summary @ -See above Was critical care preformed (if so, how long)? @ -No Undiagnosed new problem with uncertain prognosis? @ -No Drug Therapy requiring intensive monitoring for toxicity (Heparin, Nitro, Insulin, Cardizem)? @ -No Were any procedures done? @ -No Diagnosis/symptom? Acute, or Chronic, or Acute on Chronic? Uncomplicated (without systemic symptoms) or Complicated (systemic symptoms)? @ -Back pain secondary to displaced pedicle screw Side effects of treatment? @ -No Exacerbation, Progression, or Severe Exacerbation? @ -No Poses a threat to life or bodily function? How? (Chest pain, [place], HI, pneumonia, PE, COPD, DKA, ARF, appy, cholecystitis, CVA, Diverticulitis, Homicidal, Suicidal, threat to staff... and all critical care pts) @ -yes Disposition Clinical Impression: Back pain Disposition: ADMITTED IP TO THIS [facility] Condition: Serious Referrals: Reginald Wesley DO [Primary Care Provider] - 1-2 days Decision Time: 14:00
[2023-12-11] MEDS: HYDROmorphone 1 MG/ML 1 ML SYRINGE IM STA (13:00)
[2023-12-11] MEDS: HYDROmorphone 1 MG/ML 1 ML SYRINGE IVP STA (13:15)
--- NOTE | 2023-12-11 14:08 | CT ---
EXAMINATION TYPE: CT lumbar spine wo con DATE OF EXAM: 12/11/2023 1:48 PM COMPARISON: 10/21/2023, 11/06/2023 CLINICAL INDICATION: Male, 53 years old with history of back pain; PHH, Back pain TECHNIQUE: Multiple axial images were obtained from the midportion of T11 through the sacroiliac windy nts. Soft tissue and bone windows in coronal and sagittal planes were obtained and reviewed. Contrast used: mL of , (None, if empty). Oral contrast used: (None, if empty). CT DLP: 1290 mGycm, Automated exposure control for dose reduction was used. FINDINGS: Alignment: There are 5 lumbar type vertebral bodies within normal alignment. Bone: Postsurgical changes at L3 L4 L5 and S1 with bilateral sacroiliac screws. Hardware appears inta ct. Discectomy at L3-L4 L4-L5 and L5-S1. There is wedging of the L1 vertebral body anteriorly. This a ppears to be chronic degeneration. Similar to prior 11/06/2023. There appears to be superior migration of thee L3 pedicle screws now with hardware extending to the superior endplate of the vertebral body L3 which is new finding compared to prior. Multilevel degeneration changes throughout the spine with out evidence for significant spinal or neural foraminal stenosis. Surgical bed suspected seroma is pr esent and poorly visualized due to streak artifact. IMPRESSION: Migration of the bilateral L3 pedicle screws now eroding through the superior endplate of the L3 vert ebral body. Surgical consultation recommended. [facility], , 12/11/2023 2:05 PM
[2023-12-11] MEDS ORDERED: NALOXONE 0.4 MG/ML 1 ML VIAL IV PRN (14:42)
[2023-12-11] MEDS: HYDROmorphone 2 MG/ML 1 ML SYRINGE IVP PRN (15:23)
[2023-12-11] MEDS: SODIUM CHLORIDE 0.9% 1,000 ML IV SCH (15:24)
[2023-12-11 15:46] LABS: Prothrombin Time 10.8 sec (10.0-12.5)
[2023-12-11 15:47] LABS: Partial Thromboplastin Time 18.6 sec (22.0-30.0)
[2023-12-11 15:51] LABS: African American GFR (CKD) >90 (>60 ml/min/1.73 sqM); Anion Gap 7 mmol/L; Blood Urea Nitrogen 21 mg/dL (9-20); Calcium 9.5 mg/dL (8.4-10.2); Carbon Dioxide 18 mmol/L (22-30); Chloride 113 mmol/L (98-107); Glucose 88 mg/dL (74-99); Non-African American GFR(CKD) 84 (>60 ml/min/1.73 sqM); Potassium 4.1 mmol/L (3.5-5.1); Sodium 138 mmol/L (137-145)
[2023-12-11 15:52] LABS: Basophils # (A) 0.1 k/uL (0-0.2); Basophils % (A) 0 %; Eosinophils # (A) 0.4 k/uL (0-0.7); Eosinophils % (A) 4 %; HCT 37.7 % (39.0-53.0); HGB 12.5 gm/dL (13.0-17.5); Lymphocytes # (A) 1.3 k/uL (1.0-4.8); Lymphocytes % (A) 13 %; MCH 31.9 pg (25.0-35.0); MCHC 33.2 g/dL (31.0-37.0); Mean Platelet Volume 10.4; Monocytes # (A) 0.6 k/uL (0-1.0); Monocytes % (A) 6 %; Neutrophils # (A) 7.9 k/uL (1.3-7.7); Neutrophils % (A) 75 %; Platelet Count 303 k/uL (150-450); RBC 3.93 m/uL (4.30-5.90); RDW 13.4 % (11.5-15.5); WBC 10.5 k/uL (3.8-10.6)
[2023-12-11] MEDS: GABAPENTIN 300 MG CAP PO SCH (21:07)
[2023-12-12] MEDS: PANTOPRAZOLE 40 MG TABLET PO SCH (06:55)
[2023-12-12] MEDS ORDERED: SUMAtriptan succinate 50 MG TAB PO PRN (09:58)
[2023-12-12] MEDS ORDERED: PANTOPRAZOLE 40 MG TABLET PO SCH (10:00)
[2023-12-12] MEDS: CYCLOBENZAPRINE 10 MG TAB PO PRN (10:14)
[2023-12-12] MEDS: DOCUSATE 100 MG CAP PO SCH (10:14)
[2023-12-12] MEDS: FENOFIBRATE 160 MG TAB PO SCH (10:14)
--- NOTE | 2023-12-12 10:54 | P.HPOR ---
History of Present Illness H&P Date: 12/12/23 Chief Complaint: Recent fall, increased back pain History of Presenting Illness Patient is a pleasant 53-year-old male who presented to the ER for increased back pain. Patient reports on , 12/08/2023, he had fallen in the shower. Since this incident patient states he has had increase of low back pain. He denies any radiculopathy that radiates to the bilateral lower extremities. Patient had a recent procedure on 10/21/[address] Holland; Revision [id number] decompression and fusion. Patient seen and examined this morning. Patient was standing at the bedside utilizing his IV pole for assist. Patient was ambulating to the restroom. Patient has complaint of diffuse lumbar pain. He denies any radiculopathy or numbness/tingling to the bilateral lower extremities. TLSO brace is at bedside. Informed patient that he needs to utilize his brace when he is up and about. He is not to wear in bed or in shower. Order will be placed for PT/OT. CT of the lumbar spine taken on 12/11/2023 demonstrates migration of the bilateral L3 pedicle screws eroding through the superior endplate of the L3 vertebral body. Review of Systems Pertinent positives and negatives as discussed in HPI, a complete review of systems was performed and all other systems are negative. Physical Examination General: The patient is awake and alert, in no acute distress Skin: Skin is warm and dry with no obvious rashes or lesions. Eye: Pupils are equal, round and reactive to light, extra-ocular movements are intact; there is normal conjunctiva bilaterally. Neck: The neck is supple, there is no tenderness and ROM intact. Cardiovascular: There is a regular rate and rhythm. No murmur, rub or gallop is appreciated. Respiratory: Respirations are non-labored, breath sounds are equal. Gastrointestinal: Soft, slightly distended, tender abdomen to palpation Back: There is no tenderness to palpation in the midline, paralumbar, parathoracic or buttocks region. There is no obvious deformity. Musculoskeletal: Right: Shoulder abduction 5/5, elbow flexors 5/5, wrist dorsiflexors 5/5. finger abductor 5/5, switchboard manager 5/5, hip flexor 4/5, knee flexor 4/5, ankle dorsiflexor 5/5, ankle plantarflexion 5/5 and extensor hallucis 5/5. Left: Shoulder abduction 5/5, elbow flexors 5/5, wrist dorsiflexors 5/5. finger abductor 5/5, switchboard manager 5/5, hip flexor 4/5, knee flexor 4/5, ankle dorsiflexor 5/5, ankle plantarflexion 5/5 and extensor hallucis 5/5. Neurological: CN 2-12 intact. There are no obvious motor or sensory deficits. Movement and coordination equal and intact. Sensory exam to light touch intact C5-T1 and intact from L2-S1. Reflexes 2/4 in bilateral upper and lower extremities. Negative Hoffmans, babinski, and clonus signs. Psychiatric: Cooperative, appropriate mood & affect, normal judgment. Assessment and Plan Recent fall with trauma Migration of hardware L3 vertebral body Mechanical low back pain Multiple medical comorbidities At this time we do not recommend any emergent/urgent orthopedic surgical intervention. We will continue to treat conservative, continue with TLSO brace while up and about. Discussed with patient that he may benefit from home therapy. Instructed patient on some bedside exercises to improve his core and quad strength. Patient verbalizes understanding. 2. Appreciate medical management 3. Pain management -continue with oxycodone, IV Dilaudid, and Toradol. 4. GI prophylaxis -colace 5. DVT prophylaxis -Mechanical 6. PT/OT - weightbearing as tolerated with a walker as needed. 7. Appreciate consult I reviewed and discussed this case with my attending Dr. Holland, whom has reviewed this chart and films and is in agreement with assessment and plan of care as outlined above. I have personally seen and examined the patient, performed the documentation and the assessment and plan as written. Number of minutes spent on the visit: 30m. Past Medical History Past Medical History: GERD/Reflux, Hyperlipidemia Additional Past Medical History / Comment(s): Frequent migraine headaches especially w/stressful situations. Pain and burning down both legs.resolved since 1st surgery. Scratches on LE's. History of Any Multi-Drug Resistant Organisms: None Reported Past Surgical History: Cholecystectomy, Hernia Repair, Orthopedic Surgery Additional Past Surgical History / Comment(s): multiple back surgeries X3, right shoulder sx, wrist sx, hernia repair, colonoscopy Past Anesthesia/Blood Transfusion Reactions: No Reported Reaction Past Psychological History: Anxiety Additional Psychological History / Comment(s): just placed on some new meds, hasn't been given dx. yet Smoking Status: Former smoker Past Alcohol Use History: None Reported Additional Past Alcohol Use History / Comment(s): Started smoking at age 16, 1/2 ppd, quit September 2019. Past Drug Use History: Marijuana Additional Drug Use History / Comment(s): Hx heavy Marijuana use daily use, quit Nov 2022. - Past Family History Mother Family Medical History: No Reported History Medications and Allergies Home Medications Medication Instructions Recorded Confirmed Type SUMAtriptan succinate [Imitrex] 50 mg PO DAILY PRN 12/12/17 12/11/23 History Pantoprazole Sodium [Protonix] 40 mg PO DAILY 04/16/21 12/11/23 History Fenofibrate [Lofibra] 160 mg PO DAILY 02/01/23 12/11/23 History Naproxen Sodium [Aleve] 440 mg PO BID PRN 04/22/23 12/11/23 History Gabapentin 600 mg PO TID@0000,0800,1600 10/14/23 12/11/23 History Terbinafine [LamISIL] 250 mg PO DAILY 10/14/23 12/11/23 History Pregabalin [Lyrica] 150 mg PO BID@1000,2200 11/07/23 12/11/23 History Cyclobenzaprine [Flexeril] 10 mg PO TID PRN #40 tab 11/11/23 12/11/23 Rx oxyCODONE-APAP 10-325MG [Percocet 1 tab PO Q6HR PRN #28 tab 11/11/23 12/11/23 Rx 10-325 mg] Docusate [Colace] 100 mg PO DAILY 12/11/23 12/11/23 History Allergies Allergy/AdvReac Type Severity Reaction Status Date / Time adhesive Allergy Rash/Hives Verified 12/11/23 15:13 aspirin AdvReac Nausea Verified 12/11/23 15:13 Results - Labs Labs: Abnormal Lab Results - Last 24 Hours (Table) 12/11/23 12/11/23 12/11/23 Range/Units 15:11 15:11 15:11 RBC 3.93 L (4.30-5.90) m/uL Hgb 12.5 L (13.0-17.5) gm/dL Hct 37.7 L (39.0-53.0) % Neutrophils # 7.9 H (1.3-7.7) k/uL APTT 18.6 L (22.0-30.0) sec Chloride 113 H (98-107) mmol/L Carbon Dioxide 18 L (22-30) mmol/L BUN 21 H (9-20) mg/dL H & H 12/11/23 Range/Units 15:11 Hgb 12.5 L (13.0-17.5) gm/dL Hct 37.7 L (39.0-53.0) % Coagulation 12/11/23 Range/Units 15:11 INR 1.0 (<1.2) Result Diagrams: 12/11/23 15:11 12/11/23 15:11
[2023-12-12] MEDS ORDERED: ONDANSETRON ODT 4 MG TAB PO PRN (10:55)
[2023-12-12] MEDS: PREGABALIN 75 MG CAP PO SCH (11:09)
[2023-12-12] MEDS: oxyCODONE-APAP 10-325MG 1 EACH TAB PO PRN (11:09)
[2023-12-12] MEDS: TERBINAFINE 250 MG TAB PO SCH (11:09)
[2023-12-12] MEDS: KETOROLAC 15 MG/ML 1 ML VIAL IVP SCH (11:10)
[2023-12-12] MEDS: HYDROmorphone 0.5 MG/0.5 ML SYRINGE IVP PRN (11:37)
[2023-12-12] MEDS: DEXAMETHASONE SOD PHOSPHATE 10 MG/ML 1 ML VIAL IVP STA (14:15)
[2023-12-12] MEDS ORDERED: NON FORMULARY DRUG (Gabapentin [Gabapentin] 600 MG Tablet) PO SCH (16:00)
--- NOTE | 2023-12-13 08:35 | P.PN ---
Subjective Progress Note Date: 12/13/23 Principal diagnosis: Recent fall with trauma Mechanical low back pain Patient seen and examined this morning. Patient is resting comfortably in chair at bedside. Patient states that his pain is better managed on current regimen. Patient was provided Oxy IR 5 mg every 6 hours as needed and a one- time dose of IV Decadron 10 mg. Discussed with patient and his spouse in length the importance to home care with Physical therapy and Occupational Therapy to increase his core and quad muscle strength due to his multiple surgeries and his consistency of wearing TLSO brace. Patient verbalizes understanding. Case Management is assisting with this. Pain management has been consulted to assist with chronic pain management. Patient will be discharged later today. Objective - Vital Signs Vital signs: Vital Signs Temp 97.8 F 12/13/23 01:42 Pulse 79 12/13/23 01:42 Resp 17 12/13/23 01:42 BP 111/75 12/13/23 01:42 Pulse Ox 96 12/13/23 01:42 FiO2 Intake & Output 12/12/23 12/13/23 12/13/23 18:59 06:59 18:59 Other: # Voids 4 3 - Exam General: The patient is awake and alert, in no acute distress Skin: Skin is warm and dry with no obvious rashes or lesions. Eye: Pupils are equal, round and reactive to light, extra-ocular movements are intact; there is normal conjunctiva bilaterally. Neck: The neck is supple, there is no tenderness and ROM intact. Cardiovascular: There is a regular rate and rhythm. No murmur, rub or gallop is appreciated. Respiratory: Respirations are non-labored, breath sounds are equal. Gastrointestinal: Soft, slightly distended, tender abdomen to palpation Back: There is no tenderness to palpation in the midline, paralumbar, parathoracic or buttocks region. There is no obvious deformity. Musculoskeletal: Right: Shoulder abduction 5/5, elbow flexors 5/5, wrist dorsiflexors 5/5. finger abductor 5/5, air cargo ground operations supervisor 5/5, hip flexor 4/5, knee flexor 4/5, ankle dorsiflexor 5/5, ankle plantarflexion 5/5 and extensor hallucis 5/5. Left: Shoulder abduction 5/5, elbow flexors 5/5, wrist dorsiflexors 5/5. finger abductor 5/5, air cargo ground operations supervisor 5/5, hip flexor 4/5, knee flexor 4/5, ankle dorsiflexor 5/5, ankle plantarflexion 5/5 and extensor hallucis 5/5. Neurological: CN 2-12 intact. There are no obvious motor or sensory deficits. Movement and coordination equal and intact. Sensory exam to light touch intact C5-T1 and intact from L2-S1. Reflexes 2/4 in bilateral upper and lower extremities. Negative Hoffmans, babinski, and clonus signs. Psychiatric: Cooperative, appropriate mood & affect, normal judgment. - Labs CBC & Chem 7: 12/11/23 15:11 12/11/23 15:11 Assessment and Plan Assessment: Recent fall with trauma Migration of hardware L3 vertebral body Mechanical low back pain Multiple medical comorbidities Plan: We will continue to treat conservative, continue with TLSO brace while up and about. Discussed with patient that he may benefit from home therapy. Instructed patient on some bedside exercises to improve his core and quad strength. Patient verbalizes understanding. 2. Appreciate medical management 3. Consult to pain management for Chronic pain management 4. Pain management -continue with Percocet 10 mg and Oxy IR 5mg 5. GI prophylaxis -colace 6. DVT prophylaxis -Mechanical 7. PT/OT - weightbearing as tolerated with a walker as needed. Patient to wear TLSO when up and bout. 8. Appreciate consult 9. Anticipate discharge later today. I reviewed and discussed this case with my attending Dr. Holland, whom has reviewed this chart and films and is in agreement with assessment and plan of care as outlined above. I have personally seen and examined the patient, performed the documentation and the assessment and plan as written. Number of minutes spent on the visit: 30m.
--- NOTE | 2023-12-13 08:39 | P.CONS ---
History of Present Illness - Reason for Consult Consult date: 12/12/23 Medical management, L3 erosion of screws, back pain - History of Present Illness This is a 53-year-old male who presented to the emergency department with continued ongoing back pain feeling something is wrong with his recent surgery admitted to orthopedic services Dr. Holland has primary surgeon. Patient follows with Dr. Wesley in the outpatient setting with a past medical history of GERD, hyperlipidemia, migraines, anxiety. Patient reports he underwent surgery last January and was doing fine although has had some minor setbacks and rehospitalization's with most recently being hospitalized for a seroma at the surgical site and cultures were negative. Patient went home and per family reports has been doubling up on pain medications and continuing to have severe pain along the lower lumbar spine and he reports feels is something wrong with his hardware. In the ER patient had imaging including a lumbar CT which shows migration of the bilateral L3 pedicle screws now eroding through the superior endplate of the L3 vertebral body recommending surgical consultation. There is also concern for surgical bed suspected seroma but is poorly visualized secondary to artifact. Awaiting orthopedic evaluation. No immediate plans for surgical intervention at this time. Home medications have been reviewed and resumed. Medical was placed on consult for medical management. REVIEW OF SYSTEMS: CONSTITUTIONAL: No fever, no malaise, no fatigue. HEENT: No recent visual problems or hearing problems. Denied any sore throat. CARDIOVASCULAR: No chest pain, orthopnea, PND, no palpitations, no syncope. PULMONARY: No shortness of breath, no cough, no hemoptysis. GASTROINTESTINAL: No diarrhea, no nausea, no vomiting, no abdominal pain. NEUROLOGICAL: No headaches, no weakness, no numbness. HEMATOLOGICAL: Denies any bleeding or petechiae. GENITOURINARY: Denies any burning micturition, frequency, or urgency. MUSCULOSKELETAL/RHEUMATOLOGICAL: Reports continued ongoing back pain, feelings of tearing with any type of movement and getting up and only able to be up and stand for 5 minutes ENDOCRINE: Denies any polyuria or polydipsia. The rest of the 14-point review of systems is negative. PHYSICAL EXAMINATION: GENERAL: The patient is alert and oriented x3, mildly anxious. Well developed, appears older than stated age, obese nourished. HEENT: Pupils are round and equally reacting to light. EOMI. No scleral icterus. No conjunctival pallor. Normocephalic, atraumatic. No pharyngeal erythema. No thyromegaly. CARDIOVASCULAR: S1 and S2 present. No murmurs, rubs, or gallops. PULMONARY: Chest is clear to auscultation, no wheezing or crackles. ABDOMEN: Soft, obese, nontender, nondistended, normoactive bowel sounds. No palpable organomegaly. MUSCULOSKELETAL: No joint swelling or deformity. EXTREMITIES: No cyanosis, clubbing, or pedal edema. NEUROLOGICAL: Gross neurological examination did not reveal any focal deficits. SKIN: No rashes. Assessment: Back pain with history of chronic back pain and recent surgeries regarding lumbar spine History of hyperlipidemia History of GERD History of migraines History of anxiety Obesity with a BMI 31.8 Gait dysfunction with generalized weakness GI prophylaxis DVT prophylaxis Full code Plan: Patient is admitted under orthopedic services awaiting orthopedic evaluation with no immediate plans for surgical intervention at this time. Patient did undergo CT lumbar spine and awaiting to speak further with orthopedics Home medications reviewed and resumed as appropriate Encouraged increase activity as tolerated with the use of the LSO brace while up per orthopedic recommendations Continue bowel regimen We will continue to follow with orthopedics during hospitalization. Thank you kindly for this consultation. The impression and plan of care has been dictated by Emili Sharpe, Nurse Practitioner as directed. Dr. Bessy MD I have performed a history and examination and MDM of this patient, discussed the same with the dictator, and agree with the dictator's assessment and plan as written ,documented as a scribe. Based on total visit time, I have performed more than 50% of the visit. Past Medical History Past Medical History: GERD/Reflux, Hyperlipidemia Additional Past Medical History / Comment(s): Frequent migraine headaches es pecially w/stressful situations. Pain and burning down both legs.resolved since 1st surgery. Scratches on LE's. History of Any Multi-Drug Resistant Organisms: None Reported Past Surgical History: Cholecystectomy, Hernia Repair, Orthopedic Surgery Additional Past Surgical History / Comment(s): multiple back surgeries X3, right shoulder sx, wrist sx, hernia repair, colonoscopy Past Anesthesia/Blood Transfusion Reactions: No Reported Reaction Past Psychological History: Anxiety Additional Psychological History / Comment(s): just placed on some new meds, hasn't been given dx. yet Smoking Status: Former smoker Past Alcohol Use History: None Reported Additional Past Alcohol Use History / Comment(s): Started smoking at age 16, 1/2 ppd, quit September 2019. Past Drug Use History: Marijuana Additional Drug Use History / Comment(s): Hx heavy Marijuana use daily use, quit Nov 2022. - Past Family History Mother Family Medical History: No Reported History Medications and Allergies Home Medications Medication Instructions Recorded Confirmed Type SUMAtriptan succinate [Imitrex] 50 mg PO DAILY PRN 12/12/17 12/11/23 History Pantoprazole Sodium [Protonix] 40 mg PO DAILY 04/16/21 12/11/23 History Fenofibrate [Lofibra] 160 mg PO DAILY 02/01/23 12/11/23 History Naproxen Sodium [Aleve] 440 mg PO BID PRN 04/22/23 12/11/23 History Gabapentin 600 mg PO TID@0000,0800,1600 10/14/23 12/11/23 History Terbinafine [LamISIL] 250 mg PO DAILY 10/14/23 12/11/23 History Pregabalin [Lyrica] 150 mg PO BID@1000,2200 11/07/23 12/11/23 History Cyclobenzaprine [Flexeril] 10 mg PO TID PRN #40 tab 11/11/23 12/11/23 Rx oxyCODONE-APAP 10-325MG [Percocet 1 tab PO Q6HR PRN #28 tab 11/11/23 12/11/23 Rx 10-325 mg] Docusate [Colace] 100 mg PO DAILY 12/11/23 12/11/23 History Allergies Allergy/AdvReac Type Severity Reaction Status Date / Time adhesive Allergy Rash/Hives Verified 12/11/23 15:13 aspirin AdvReac Nausea Verified 12/11/23 15:13 Physical Exam Vitals: Vital Signs Temp Pulse Pulse Resp BP BP Pulse Ox 12/12/23 07:06 98.0 F 75 17 117/83 96 12/12/23 01:37 97.8 F 83 15 128/75 97 12/11/23 20:55 83 17 12/11/23 20:01 97.9 F 83 17 138/92 97 12/11/23 17:24 97.8 F 88 17 139/93 96 12/11/23 17:10 94 18 126/86 98 12/11/23 16:00 90 18 120/81 97 12/11/23 13:00 94 16 113/87 98 12/11/23 11:45 97.9 F 100 16 117/81 100 Intake and Output 12/11/23 12/12/23 12/12/23 22:59 06:59 14:59 Intake Total 1080 Balance 1080 Intake: Oral 1080 Other: # Voids 3 2 Weight 83.915 kg Results CBC & Chem 7: 12/11/23 15:11 12/11/23 15:11 Labs: Abnormal Lab Results - Last 24 Hours (Table) 12/11/23 12/11/23 12/11/23 Range/Units 15:11 15:11 15:11 RBC 3.93 L (4.30-5.90) m/uL Hgb 12.5 L (13.0-17.5) gm/dL Hct 37.7 L (39.0-53.0) % Neutrophils # 7.9 H (1.3-7.7) k/uL APTT 18.6 L (22.0-30.0) sec Chloride 113 H (98-107) mmol/L Carbon Dioxide 18 L (22-30) mmol/L BUN 21 H (9-20) mg/dL
--- NOTE | 2023-12-13 11:45 | P.DS ---
Providers Date of admission: 12/11/23 14:42 Expected date of discharge: 12/13/23 Attending physician: Hilario Holland DO Consults: 12/11/23 14:42 Consult Physician Routine Consulting Provider: Salma Raines Consult Reason/Comments: medicine consult Do you want consulting provider notified?: Yes Primary care physician: [facility] Hospital Course: Hospital Course: The patient was evaluated and found to have the diagnosis of L3 hardware migration and mechanical low back pain. While on the floor they worked with physical therapy, occupational therapy and nursing. Their pain was well controlled through their stay and they were started on appropriate medications. Daily labs and vital signs were monitored Medicine as well as other consulting services have made their input and have helped with our team approach and multidisciplinary care. PT milestones have been met and passed and they have made the recommendation of home with homecare for this patient and treating providers agree with this care path. The patient will be discharged home with appropriate medications, instructions and follow-up information and in stable co ndition. Patient Condition at Discharge: Good Plan - Discharge Summary Discharge Rx Participant: No New Discharge Prescriptions: New oxyCODONE HCL [OxyIR] 5 mg PO Q6H PRN #28 tab PRN Reason: Severe Pain (Scale 7 To 10) Sennosides/Docusate Sodium [Senna Plus 8.6-50 mg Softgel] 1 each PO DAILY PRN #20 capsule PRN Reason: Constipation No Action SUMAtriptan succinate [Imitrex] 50 mg PO DAILY PRN PRN Reason: Migraine Headache Terbinafine [LamISIL] 250 mg PO DAILY Cyclobenzaprine [Flexeril] 10 mg PO TID PRN #40 tab PRN Reason: Pain Pantoprazole Sodium [Protonix] 40 mg PO DAILY Fenofibrate [Lofibra] 160 mg PO DAILY Naproxen Sodium [Aleve] 440 mg PO BID PRN PRN Reason: Migraine Headache Gabapentin 600 mg PO TID@0000,0800,1600 Pregabalin [Lyrica] 150 mg PO BID@1000,2200 oxyCODONE-APAP 10-325MG [Percocet 10-325 mg] 1 tab PO Q6HR PRN #28 tab PRN Reason: Pain Docusate [Colace] 100 mg PO DAILY Discharge Medication List SUMAtriptan succinate [Imitrex] 50 mg PO DAILY PRN 12/12/17 [History] Pantoprazole Sodium [Protonix] 40 mg PO DAILY 04/16/21 [History] Fenofibrate [Lofibra] 160 mg PO DAILY 02/01/23 [History] Naproxen Sodium [Aleve] 440 mg PO BID PRN 04/22/23 [History] Gabapentin 600 mg PO TID@0000,0800,1600 10/14/23 [History] Terbinafine [LamISIL] 250 mg PO DAILY 10/14/23 [History] Pregabalin [Lyrica] 150 mg PO BID@1000,2200 11/07/23 [History] Cyclobenzaprine [Flexeril] 10 mg PO TID PRN #40 tab 11/11/23 [Rx] oxyCODONE-APAP 10-325MG [Percocet 10-325 mg] 1 tab PO Q6HR PRN #28 tab 11/11/23 [Rx] Docusate [Colace] 100 mg PO DAILY 12/11/23 [History] Sennosides/Docusate Sodium [Senna Plus 8.6-50 mg Softgel] 1 each PO DAILY PRN #20 capsule 12/13/23 [Rx] oxyCODONE HCL [OxyIR] 5 mg PO Q6H PRN #28 tab 12/13/23 [Rx] Follow up Appointment(s)/Referral(s): [facility], [NON-STAFF] - As Needed Reginald Wesley DO [Primary Care Provider] - 1-2 days Hilario Holland DO [Doctor of Osteopathic Medicine] - 12/26/23 (Patient has scheduled appt already on this day.) [facility] [NON-STAFF] - 1-2 Days Activity/Diet/Wound Care/Special Instructions: Activity: Wear TLSO brace at all times when up and about Pain Management: Utilize ice therapy every hour for 20min. Take medication as prescribed. Follow up in our office with Dr. Holland in 2 weeks. Discharge Disposition: HOME WITH HOME HEALTH SERVICES
--- NOTE | 2023-12-13 13:50 | P.PAINCN ---
History of Present Illness - History of Present Illness 53-year-old pleasant gentleman who has multiple back surgeries and a fall in the bathroom. Pain is located in the low back down to bilateral thighs. Pain is there all the time with intensity 10/10. Any activities increases the pain. The pain medications decreases to some extent. Describes the pain is continuous and achy in character. Also complains of numbness and loss of sensation in left foot which is not new. Complained of occasional knees gave away after standing for quite some time in the past. Denies any new bowel bladder dysfunction. Patient also complains of decreased sensation in the buttocks which is which is not new and has been there for not new and has been there for long time Past Medical History Past Medical History: GERD/Reflux, Hyperlipidemia Additional Past Medical History / Comment(s): Frequent migraine headaches especially w/stressful situations. Pain and burning down both legs.resolved since 1st surgery. Scratches on LE's. History of Any Multi-Drug Resistant Organisms: None Reported Past Surgical History: Cholecystectomy, Hernia Repair, Orthopedic Surgery Additional Past Surgical History / Comment(s): multiple back surgeries X3, right shoulder sx, wrist sx, hernia repair, colonoscopy Past Anesthesia/Blood Transfusion Reactions: No Reported Reaction Past Psychological History: Anxiety Additional Psychological History / Comment(s): just placed on some new meds, hasn't been given dx. yet Smoking Status: Former smoker Past Alcohol Use History: None Reported Additional Past Alcohol Use History / Comment(s): Started smoking at age 16, 1/2 ppd, quit September 2019. Past Drug Use History: Marijuana Additional Drug Use History / Comment(s): Hx heavy Marijuana use daily use, quit Nov 2022. - Past Family History Mother Family Medical History: No Reported History Medications and Allergies Home Medications Medication Instructions Recorded Confirmed Type SUMAtriptan succinate [Imitrex] 50 mg PO DAILY PRN 12/12/17 12/11/23 History Pantoprazole Sodium [Protonix] 40 mg PO DAILY 04/16/21 12/11/23 History Fenofibrate [Lofibra] 160 mg PO DAILY 02/01/23 12/11/23 History Naproxen Sodium [Aleve] 440 mg PO BID PRN 04/22/23 12/11/23 History Gabapentin 600 mg PO TID@0000,0800,1600 10/14/23 12/11/23 History Terbinafine [LamISIL] 250 mg PO DAILY 10/14/23 12/11/23 History Pregabalin [Lyrica] 150 mg PO BID@1000,2200 11/07/23 12/11/23 History Cyclobenzaprine [Flexeril] 10 mg PO TID PRN #40 tab 11/11/23 12/11/23 Rx oxyCODONE-APAP 10-325MG [Percocet 1 tab PO Q6HR PRN #28 tab 11/11/23 12/11/23 Rx 10-325 mg] Docusate [Colace] 100 mg PO DAILY 12/11/23 12/11/23 History Sennosides/Docusate Sodium [Senna 1 each PO DAILY PRN #20 capsule 12/13/23 Rx Plus 8.6-50 mg Softgel] oxyCODONE HCL [OxyIR] 5 mg PO Q6H PRN #28 tab 12/13/23 Rx Allergies Allergy/AdvReac Type Severity Reaction Status Date / Time adhesive Allergy Rash/Hives Verified 12/11/23 15:13 aspirin AdvReac Nausea Verified 12/11/23 15:13 Physical Exam Vitals: Vital Signs Temp Pulse Resp BP Pulse Ox 12/13/23 08:00 98.1 F 100 18 135/78 12/13/23 01:42 97.8 F 79 17 111/75 96 12/12/23 20:30 17 12/12/23 19:30 98.1 F 105 H 17 146/94 93 L 12/12/23 14:20 97.8 F 92 17 149/88 100 Intake and Output 12/12/23 12/13/23 12/13/23 22:59 06:59 14:59 Other: # Voids 4 3 - Neurologic Limited physical exam. Motor strength of knees and ankles 4/5 on left side, 5/5 on right side. Deep tendon reflexes of knees and and ankles 1+ bilaterally Sensation to touch is decreased in left foot. Sensation is intact in other places. - Musculoskeletal Needed physical exam secondary to braces. Tenderness in the lumbar spine and paraspinal areas. Lumbar spine flexion extension rotation are limited. Results CBC & Chem 7: 12/11/23 15:11 12/11/23 15:11 Assessment and Plan Assessment: Chronic low back pain. Postlaminectomy syndrome. Lumbar spine axial pain. Plan: Patient should continue with current pain medications. pain medications, go home with until we see him in our pain clinic. Patient was given contact numbers for pain clinic and was asked to call pain clinic as soon as possible. Suggest to go home with 1. Percocet 10/325 1 pill every 6 hour. 2. Oxy IR 5 mg every 6 hour as needed when necessary 3. Continue current dose of Neurontin/Lyrica and Flexeril. . PQRS Measure Charge Sheet - Pain Location Back Non-Pharmacological Interventions: Darkened Room, Distraction, Ice, Position/ Reposition Pharmacological Interventions: Discuss Pain Med Options PQRS Narrative: Smoking Status Current every day smoker Blood Pressure [Left Arm] 135/78 Blood Pressure 126/86 Pain Intensity [Back] 4 Pain Intensity 4 Pain Scale Used Numeric (1 - 10) Scale Used Numeric (1 - 10) Home Medications: Ambulatory Orders SUMAtriptan succinate [Imitrex] 50 mg PO DAILY PRN 12/12/17 Pantoprazole Sodium [Protonix] 40 mg PO DAILY 04/16/21 Fenofibrate [Lofibra] 160 mg PO DAILY 02/01/23 Naproxen Sodium [Aleve] 440 mg PO BID PRN 04/22/23 Gabapentin 600 mg PO TID@0000,0800,1600 10/14/23 Terbinafine [LamISIL] 250 mg PO DAILY 10/14/23 Pregabalin [Lyrica] 150 mg PO BID@1000,2200 11/07/23 Cyclobenzaprine [Flexeril] 10 mg PO TID PRN #40 tab 11/11/23 oxyCODONE-APAP 10-325MG [Percocet 10-325 mg] 1 tab PO Q6HR PRN #28 tab 11/11/23 Docusate [Colace] 100 mg PO DAILY 12/11/23 Sennosides/Docusate Sodium [Senna Plus 8.6-50 mg Softgel] 1 each PO DAILY PRN #20 capsule 12/13/23 oxyCODONE HCL [OxyIR] 5 mg PO Q6H PRN #28 tab 12/13/23
[2023-12-13 15:32] VITALS: BP 126/70; PULSE 78; RESP 17; TEMP 97.6
--- NOTE | 2023-12-15 13:07 | P.PN ---
Subjective Progress Note Date: 12/13/23 This is a 53-year-old male who presented to the emergency department with continued ongoing back pain feeling something is wrong with his recent surgery admitted to orthopedic services Dr. Holland has primary surgeon. Patient follows with Dr. Wesley in the outpatient setting with a past medical history of GERD, hyperlipidemia, migraines, anxiety. Patient reports he underwent surgery last January and was doing fine although has had some minor setbacks and rehospitalization's with most recently being hospitalized for a seroma at the surgical site and cultures were negative. Patient went home and per family reports has been doubling up on pain medications and continuing to have severe pain along the lower lumbar spine and he reports feels is something wrong with his hardware. In the ER patient had imaging including a lumbar CT which shows migration of the bilateral L3 pedicle screws now eroding through the superior endplate of the L3 vertebral body recommending surgical consultation. There is also concern for surgical bed suspected seroma but is poorly visualized secondary to artifact. Awaiting orthopedic evaluation. No immediate plans for surgical intervention at this time. Home medications have been reviewed and resumed. Medical was placed on consult for medical management. 12/13/2023 Patient is seen in follow-up today awaiting to be evaluated by pain management. Medications being adjusted and patient will follow-up with pain management outpatient. Patient has been cleared by orthopedics recommended to continue with scheduled appointment in the outpatient setting. Patient is afebrile with no reports of chest pain or shortness of breath. Recommend rehab in the home and also outpatient follow-up with primary care provider. Patient is medically stable once cleared by orthopedics. Review of systems: Constitutional: No reports of fatigue, fever, or chills Cardiovascular: No reports of chest pain or palpitations Respiratory: No reports of shortness of breath or cough GI: No reports of nausea, vomiting, or diarrhea : No reports of dysuria or retention Neurovascular: reports of generalized weakness and continued back pain All medications have been reviewed PHYSICAL EXAMINATION: GENERAL: The patient is alert and oriented x3, less anxious. Well developed, appears older than stated age, obese nourished. HEENT: Pupils are round and equally reacting to light. EOMI. No scleral icterus. No conjunctival pallor. Normocephalic, atraumatic. No pharyngeal erythema. No thyromegaly. CARDIOVASCULAR: S1 and S2 present. No murmurs, rubs, or gallops. PULMONARY: Chest is clear to auscultation, no wheezing or crackles. ABDOMEN: Soft, obese, nontender, nondistended, normoactive bowel sounds. No palpable organomegaly. MUSCULOSKELETAL: No joint swelling or deformity. EXTREMITIES: No cyanosis, clubbing, or pedal edema. NEUROLOGICAL: Gross neurological examination did not reveal any focal deficits. SKIN: No rashes. Assessment: Back pain with history of chronic back pain and recent surgeries regarding lumbar spine History of hyperlipidemia History of GERD History of migraines History of anxiety Obesity with a BMI 31.8 Gait dysfunction with generalized weakness GI prophylaxis DVT prophylaxis Full code Plan: Patient is admitted under orthopedic services with no immediate plans for surgical intervention at this time. Patient has a scheduled appointment outpatient with surgeon and instructed to keep this appointment Patient being evaluated by pain management and will follow-up outpatient Home medications reviewed and resumed as appropriate Encouraged increase activity as tolerated with the use of the LSO brace while up per orthopedic recommendations Continue bowel regimen Patient is medically stable once cleared by orthopedics We will continue to follow with orthopedics during hospitalization. Thank you kindly for this consultation. The impression and plan of care has been dictated by Emili Sharpe, Nurse Practitioner as directed. Dr. Bessy MD I have performed a history and examination and MDM of this patient, discussed the same with the dictator, and agree with the dictator's assessment and plan as written ,documented as a scribe. Based on total visit time, I have performed more than 50% of the visit. Objective - Vital Signs Vital signs: Vital Signs Temp 98.1 F 12/13/23 08:00 Pulse 100 12/13/23 08:00 Resp 18 12/13/23 08:00 BP 135/78 12/13/23 08:00 Pulse Ox 96 12/13/23 01:42 FiO2 Intake & Output 12/12/23 12/13/23 12/13/23 18:59 06:59 18:59 Other: # Voids 4 3 - Labs CBC & Chem 7: 12/11/23 15:11 12/11/23 15:11
== END 2023-12-13 15:57 | disposition home health service (06) | DRG 561 ==
LOC: EC 11:40 → 4SSUR 14:42
PROVIDERS: ADMIT Orthopaedic Surgery; ATTEND Orthopaedic Surgery
DX: T84.028A Dislocation of other internal joint prosthesis, initial encounter (principal); E78.5 Hyperlipidemia, unspecified; E66.9 Obesity, unspecified; M96.1 Postlaminectomy syndrome, not elsewhere classified; F41.9 Anxiety disorder, unspecified; G89.29 Other chronic pain; K21.9 Gastro-esophageal reflux disease without esophagitis; W19.XXXA Unspecified fall, initial encounter; Z68.31 Body mass index [BMI] 31.0-31.9, adult; Z87.891 Personal history of nicotine dependence; Z79.899 Other long term (current) drug therapy; Z88.6 Allergy status to analgesic agent; Z91.041 Radiographic dye allergy status; Z87.19 Personal history of other diseases of the digestive system
CPT/HCPCS: 72131; 80048; 85025; 85610; 85730; 96361; 96372; 96374; 96376; 99285

== ENCOUNTER → 2023-12-21 | Outpatient (CLI) | payer MEDICARE, OTHER ==
[2023-12-21 09:50] VITALS: BP 114/80; PULSE 94; RESP 16
--- NOTE | 2023-12-21 16:04 | P.PAINPG ---
PQRS Measure Charge Sheet Comment: HISTORY OF PRESENT ILLNESS: A 53 yr old wheelchair bound male w at side as a referral from Dr Wesley presents today w severe and chronic LBP from fall > 25 yrs ago secondary to post laminectomy syndrome for evaluation. Pt states pain level is provoked at 9 /10 in intensity, constant, localized in the lumbar spine, predominantly axial, stabbing in character w occasional shooting pain towards the BLEs. Pain is provoked by any movement. Pain is alleviated by PT x 6 wks which ended in Apr 2023, physician guided home exercises 5 times weekly since Apr 2023, medications ( Oxycodone IR, Lyrica, Neurontin), THC use, ice, repositioning and rest . PMH: OA, GERD, Hyperlipidemia, Anxiety PSH: Cholecystectomy, Hernia Repair, Lumbar Surgery x3, R Shoulder Surgery, Wrist Surgery, Colonoscopy SH: Former tobacco user, Occ ETOH use, Cannabis use FH: Mo- No Reported History All: See list Meds: See list REVIEW OF ORGAN SYSTEMS: CONSTITUTIONAL: No fevers or chills. No recent weight loss. NEUROLOGICAL: + numbness and tingling along the distal extremities. No seizure disorders or headaches. MUSCULOSKELETAL: + pain PSYCHIATRIC: Denies current depression or suicidal thoughts. Physical Examinations : Constitutional : Cooperative , not in acute distress . Neurologic : Cranial nerve II to XII intact. No focal neurological deficits. Psychiatric : alert & oriented x 3. Matching mood & appropriate affect. Judgment & insight intact. Musculoskeletal : Cervical Spine Motor strength in the deltoid and biceps: Normal right side. Normal Left side Motor strength biceps and the wrist extensors: Normal right side . Normal left side Motor strength in the triceps muscle: Normal right side. Normal left side Deep tendon reflexes: Normal at the biceps. Normal at Brachioradialis. Normal at triceps Vertebral body tenderness to deep palpation over Cervical facet loading test: positive bilaterally Spurling test: positive bilaterally Neck distraction test: positive bilaterally Mansi sign: positive bilaterally Lumbar spine +Vertical Incisional Scars intact Motor strength lower extremities ,thigh and legs 5/5 Right side , 5/5 Left side Deep tendon reflexes : Normal Knee Jerk. Normal Ankle Jerk Vertebral body tenderness over L1 Rogers Test positive BL L1-L2 Lumbar facet Loading Test: positive Right / positive Left Range of motion of the lumbar spine Flexion 30 degrees, extension 10 degrees Straight Leg Raise test: Left/ Right positive at degrees Manuel test: positive right / positive left. Severe tenderness over the Sacroiliac joint on the Right / Left sides Gaenslen test: positive bilaterally Seated flexion test: positive bilaterally. Sacral spine : Severe tenderness over the Sacroiliac joint: right side / left side Range of motion: Flexion of the lumbar spine <60 degrees Range of motion: Extension of the lumbar spine <20 degrees Gaenslen's Test positive Manuel test: positive right side / left side Thigh Thrust Test Sacral Thrust Test Imaging: CT non contrast lumbar spine from 12/11/23 reviewed Assessment/ Plan : L3-S1 discectomy/ laminectomy w hardware, L1 anterior body wedging Recommendation of KEVIN L1-L2 #1. Add Lidoderm 5%. Use, side effects, adverse reactions, safe storage discussed. TENS unit script [id number] . Risks, benefits of procedure discussed and patient verbalized understanding. Admits to anti- coagulant use or medical history of diabetes. Protocol for discontinuation/ continuation of medications karen procedure discussed. All questions answered. I have spent greater than 30 minutes on patient care today. Dr Anand was available by phone for the evaluation of this patient. The time was used to review the medical records including relevant urine studies and Prescription history (MAPs), review of the available imaging, evaluation and examination of the patient, coordination of care with the medical staff and if applicable referring physicians, as well as creation of the medical record PQRS Narrative: Smoking Status Current every day smoker Home Medications: Ambulatory Orders SUMAtriptan succinate [Imitrex] 50 mg PO DAILY PRN 12/12/17 Pantoprazole Sodium [Protonix] 40 mg PO DAILY 04/16/21 Fenofibrate [Lofibra] 160 mg PO DAILY 02/01/23 Naproxen Sodium [Aleve] 440 mg PO BID PRN 04/22/23 Gabapentin 600 mg PO TID@0000,0800,1600 10/14/23 Terbinafine [LamISIL] 250 mg PO DAILY 10/14/23 Pregabalin [Lyrica] 150 mg PO BID@1000,2200 11/07/23 Cyclobenzaprine [Flexeril] 10 mg PO TID PRN #40 tab 11/11/23 oxyCODONE-APAP 10-325MG [Percocet 10-325 mg] 1 tab PO Q6HR PRN #28 tab 11/11/23 Docusate [Colace] 100 mg PO DAILY 12/11/23 Sennosides/Docusate Sodium [Senna Plus 8.6-50 mg Softgel] 1 each PO DAILY PRN #20 capsule 12/13/23 oxyCODONE HCL [OxyIR] 5 mg PO Q6H PRN #28 tab 12/13/23 Lidocaine 5% Patch [Lidoderm] 1 patch TOPICAL DAILY 30 Days #30 patch 12/21/23 Controlled Substance Measures - Controlled Substance Measures Is patient prescribed a controlled substance at discharge?: No
== END ==
LOC: PNWHC3 09:21
PROVIDERS: ATTEND Specialist
DX: M51.369 Other intervertebral disc degeneration, lumbar region without mention of lumbar back pain or lower extremity pain (principal); F17.200 Nicotine dependence, unspecified, uncomplicated; Z98.890 Other specified postprocedural states; Z88.6 Allergy status to analgesic agent; Z91.048 Other nonmedicinal substance allergy status
CPT/HCPCS: 99211

== ENCOUNTER → 2024-01-17 | Outpatient (CLI) | payer BC, OTHER ==
--- NOTE | 2024-01-21 00:17 | BD ---
EXAMINATION TYPE: Axial Bone Density DATE OF EXAM: 01/17/2024 CLINICAL HISTORY: 53 years old Male. ICD-10 CODE: T84.498A [facility] COMPL OF INTERNAL ORTH DEVICES, IMPL , Additional History: Height: 64 Weight: 184.1 FRAX RISK QUESTIONS: Alcohol (3 or more units per day): no Family History (Parent hip fracture): no Glucocorticoids (More than 3mos): no (Ex: prednisone, prednisolone, methylprednisolone, dexamethasone, and hydrocortisone). History of Fracture in Adulthood: no Secondary Osteoporosis: 1. Type 1 Diabetes: no 2. Hyperthyroidism: no 3. Menopause before 45: N/A 4. Malnutrition: no 5. Chronic liver disease: no Rheumatoid Arthritis: no Current Tobacco Use: no RISK FACTORS HISTORY OF: Surgery to Spine/Hip(right/left)/Wrist (right/left): lumbar spine surgery When: x4 over the years EXAM MEASUREMENTS: Bone mineral densitometry was performed using the Geni System. Bone mineral density about the R hip (g/cm2): 0.843 Bone mineral density about the L hip (g/cm2): 0.888 T Score values are as follows: -----R Neck: -2.2 -----L Neck: -2.1 -----R Total: -1.3 -----L Total: -0.9 Z Score values are as follows: -----R Neck: -1.96 -----L Neck: -1.9 -----R Total: -1.5 -----L Total: -1.2 Bone mineral density : baseline Bone mineral density about the L Wrist (g/cm2): 0.771 T Score values are as follows: -----Dist. R+U: -0.4 -----Prox. R+U: -0.8 -----Radius total: 0.3 Z Score values are as follows: -----Dist. R+U: -0.2 -----Prox. R+U: -0.5 -----Radius total: 0.5 Bone mineral density : baseline FRAX%s: The graph provided illustrates a 7.4% chance for a major osteoporotic fx and a 1.7% chance fo r the hips probability for fx in 10 years time. IMPRESSION: Osteopenia (T Score between -2.5 and -1). There is slightly increased risk of fracture and the patient may be considered for treatment. Re-Screen 2-5 years. NOTE: T-SCORE=SD OF THE YOUNG ADULT MEAN. [facility], , 01/21/2024 12:15 AM
== END | disposition home or self-care (01) ==
LOC: RADBDWWP 11:12
PROVIDERS: ATTEND Neurological Surgery
DX: T84.498A Other mechanical complication of other internal orthopedic devices, implants and grafts, initial encounter (principal); M85.89 Other specified disorders of bone density and structure, multiple sites
CPT/HCPCS: 77080

== ENCOUNTER 2024-01-26 12:08 | Inpatient (IN) | payer MEDICARE, OTHER ==
[2024-01-26] MEDS: HYDROmorphone 1 MG/ML 1 ML SYRINGE IVP STA ×2 (13:03→14:12)
[2024-01-26] MEDS: SODIUM CHLORIDE 0.9% 1,000 ML IV ONE (13:04)
[2024-01-26 13:21] LABS: WBC 9.8 k/uL (3.8-10.6)
[2024-01-26 13:22] LABS: Basophils % (A) 0 %; Eosinophils # (A) 0.1 k/uL (0-0.7); Eosinophils % (A) 1 %; HCT 42.7 % (39.0-53.0); HGB 13.7 gm/dL (13.0-17.5); Lymphocytes # (A) 1.9 k/uL (1.0-4.8); Lymphocytes % (A) 20 %; MCH 28.9 pg (25.0-35.0); MCHC 32.2 g/dL (31.0-37.0); Mean Platelet Volume 7.3; Monocytes # (A) 0.3 k/uL (0-1.0); Monocytes % (A) 3 %; Neutrophils # (A) 7.3 k/uL (1.3-7.7); Neutrophils % (A) 75 %; Platelet Count 369 k/uL (150-450); RBC 4.75 m/uL (4.30-5.90); RDW 13.8 % (11.5-15.5)
[2024-01-26 13:30] LABS: MCV 89.9 fL (80.0-100.0)
[2024-01-26 13:39] LABS: ALT 15 U/L (4-49); AST 22 U/L (17-59); African American GFR (CKD) 77 (>60 ml/min/1.73 sqM); Albumin 4.2 g/dL (3.5-5.0); Alkaline Phosphatase 97 U/L (38-126); Anion Gap 5 mmol/L; Blood Urea Nitrogen 18 mg/dL (9-20); Carbon Dioxide 22 mmol/L (22-30); Chloride 110 mmol/L (98-107); Glucose 88 mg/dL (74-99); Non-African American GFR(CKD) 67 (>60 ml/min/1.73 sqM); Potassium 4.7 mmol/L (3.5-5.1); Sodium 137 mmol/L (137-145); Total Bilirubin 0.4 mg/dL (0.2-1.3); Total Protein 6.7 g/dL (6.3-8.2)
--- NOTE | 2024-01-26 14:25 | ED ---
Back Pain HPI - General Chief Complaint: Back Pain/Injury Stated Complaint: Back Pain Time Seen by Provider: 01/26/24 12:20 Source: patient, family Limitations: no limitations - History of Present Illness Initial Comments: 53-year-old male with past medical history of lumbar back surgery by Dr. Holland and who comes into the emergency department reporting intractable back pain. Patient did have a fall in November. He did migration of his hardware. He is scheduled for another round the however patient states he cannot take the pain. He did see a specialist down at [place]. They will not be able to do his surgery until February so he decided he is going to stay with Dr. Holland. No bowel or bladder incontinence. Does have some numbness in his left leg but states it is has been chronic. No saddle anesthesia. He has been taking his home pain medications without relief. No other alleviating, precipitating or modifying factors - Related Data Home Medications Medication Instructions Recorded Confirmed SUMAtriptan succinate [Imitrex] 50 mg PO DAILY PRN 12/12/17 01/26/24 Pantoprazole Sodium [Protonix] 40 mg PO DAILY 04/16/21 01/26/24 Fenofibrate [Lofibra] 160 mg PO DAILY 02/01/23 01/26/24 Gabapentin 600 mg PO TID@0000,0800,1600 10/14/23 01/26/24 Pregabalin [Lyrica] 150 mg PO BID@1000,2200 11/07/23 01/26/24 methocarbamoL [Robaxin-750] 750 mg PO Q6H PRN 01/26/24 01/26/24 Terbinafine [LamISIL] 250 mg PO DAILY 01/28/24 01/28/24 Previous Rx's Medication Instructions Recorded oxyCODONE-APAP 10-325MG [Percocet 1 tab PO Q6HR PRN #28 tab 11/11/23 10-325 mg] Allergies Allergy/AdvReac Type Severity Reaction Status Date / Time adhesive Allergy Rash/Hives Verified 01/30/24 08:35 aspirin AdvReac Nausea Verified 01/30/24 08:35 wine spirit AdvReac Unknown Verified 01/30/24 08:35 Review of Systems ROS Statement: Those systems with pertinent positive or pertinent negative responses have been documented in the HPI. ROS Other: All systems not noted in ROS Statement are negative. Past Medical History Past Medical History: GERD/Reflux, Hyperlipidemia Additional Past Medical History / Comment(s): Frequent migraine headaches especially w/stressful situations. Pain and burning down both legs.resolved since 1st surgery. Scratches on LE's. History of Any Multi-Drug Resistant Organisms: None Reported Past Surgical History: Cholecystectomy, Hernia Repair, Orthopedic Surgery Additional Past Surgical History / Comment(s): multiple back surgeries X3, right shoulder sx, wrist sx, hernia repair, colonoscopy Past Anesthesia/Blood Transfusion Reactions: No Reported Reaction Past Psychological History: Anxiety Smoking Status: Former smoker - Past Family History Mother Family Medical History: No Reported History General Exam Limitations: no limitations General appearance: alert, in no apparent distress Head exam: Present: atraumatic, normocephalic, normal inspection Eye exam: Present: normal appearance, PERRL, EOMI. Absent: scleral icterus, con junctival injection, periorbital swelling ENT exam: Present: normal exam, mucous membranes moist Neck exam: Present: normal inspection. Absent: tenderness, meningismus, lymphadenopathy Respiratory exam: Present: normal lung sounds bilaterally. Absent: respiratory distress, wheezes, rales, rhonchi, stridor Cardiovascular Exam: Present: normal rhythm, tachycardia, normal heart sounds. Absent: systolic murmur, diastolic murmur, rubs, gallop, clicks GI/Abdominal exam: Present: soft, normal bowel sounds. Absent: distended, tenderness, guarding, rebound, rigid Extremities exam: Present: normal inspection, full ROM, normal capillary refill. Absent: tenderness, pedal edema, joint swelling, calf tenderness Back exam: Present: paraspinal tenderness (In the upper lumbar region) Neurological exam: Present: alert, oriented X3, CN II-XII intact Psychiatric exam: Present: anxious Skin exam: Present: warm, dry, intact, normal color. Absent: rash Course Vital Signs 01/26/24 01/26/24 01/26/24 12:15 20:01 20:17 Temperature 98.2 F 97.8 F Pulse Rate 119 H Pulse Rate [ 97 Right Supine Pulse Oximetery ] Respiratory 24 18 18 Rate Blood Pressure 126/82 Blood Pressure 126/79 [Right Arm Supine] O2 Sat by Pulse 99 95 Oximetry Medical Decision Making - Medical Decision Making Was pt. sent in by a medical professional or institution (JENNIFER Robles, AIRPORT MANAGER, urgent care, hospital, or senior care...) When possible be specific @ -No Did you speak to anyone other than the patient for history (EMS, parent, family, police, friend...)? What history was obtained from this source @ -I spoke with Dr. Holland for the history Did you review nursing and triage notes (agree or disagree)? Why? @ -I reviewed and agree with nursing and triage notes Were old charts reviewed (outside hosp., previous admission, EMS record, old EKG, old radiological studies, urgent care reports/EKG's, senior care records)? Report findings @ -Reviewed previous operative report from Dr. Holland Differential Diagnosis (chest pain, altered mental status, abdominal pain women, abdominal pain men, vaginal bleeding, weakness, fever, dyspnea, syncope, headache, dizziness, GI bleed, back pain, seizure, CVA, palpatations, mental health, musculoskeletal)? @ -Differential Back Pain: Strain, zoster, cauda equina syndrome, epidural abscess, vertebral osteomyelitis, discitis, fracture, subluxation, disc herniation, DJD, spinal stenosis, dissection, AAA, pancreatitis, peptic ulcer disease, pyelonephritis, kidney stone, this is not meant to be an all-inclusive list. EKG interpreted by me (3pts min.). @ -Not done X-rays interpreted by me (1pt min.). @ -None done CT interpreted by me (1pt min.). @ -Yes and demonstrates migration of the patient's hardware but no new findings U/S interpreted by me (1pt. min.). @ -None done What testing was considered but not performed or refused? (CT, X-rays, U/S, labs)? Why? @ -None What meds were considered but not given or refused? Why? @ -None Did you discuss the management of the patient with other professionals (professionals i.e. JENNIFER Robles, AIRPORT MANAGER, lab, RT, psych nurse, psychosocial rehabilitation counselor, sample coordinator, teacher, recreation officer, catalytic case operator)? Give summary @ -Discussed case with Dr. Holland who presents to the emergency department and evaluate patient Was smoking cessation discussed for >3mins.? @ -No Was critical care preformed (if so, how long)? @ -No Were there social determinants of health that impacted care today? How? (Homelessness, low income, unemployed, alcoholism, drug addiction, transportation, low edu. Level, literacy, decrease access to med. care, mcc, rehab)? @ -No Was there de-escalation of care discussed even if they declined (Discuss DNR or withdrawal of care, Hospice)? DNR status @ -No What co-morbidities impacted this encounter? (DM, HTN, Smoking, COPD, CAD, Cancer, CVA, ARF, Chemo, Hep., AIDS, mental health diagnosis, sleep apnea, morbid obesity)? @ -Chronic back pain Was patient admitted / discharged? Hospital course, mention meds given and route, prescriptions, significant lab abnormalities, going to OR and other pertinent info. @ -Upon arrival patient seen and evaluated in bed 18 hallway. Thorough history and physical exam was performed. IV was established. Patient was administered pain medications and Valium. I did call and speak with Dr. Holland. He would like a CT of the back which is performed. I did call him back with the results. He does come to the ER and evaluates the patient. He will admit him for pain control with possible migration of his surgery Undiagnosed new problem with uncertain prognosis? @ -No Drug Therapy requiring intensive monitoring for toxicity (Heparin, Nitro, Insulin, Cardizem)? @ -No Were any procedures done? @ -No Diagnosis/symptom? @ -Intractable back pain, history of fall with hardware migration Acute, or Chronic, or Acute on Chronic? @ -Acute Uncomplicated (without systemic symptoms) or Complicated (systemic symptoms)? @ -Complicated Side effects of treatment? @ -No Exacerbation, Progression, or Severe Exacerbation? @ -No Poses a threat to life or bodily function? How? (Chest pain, [place], DE, pneumonia, PE, COPD, DKA, ARF, appy, cholecystitis, CVA, Diverticulitis, Homicidal, Suicidal, threat to staff... and all critical care pts) @ -No - Lab Data Result diagrams: 01/30/24 03:12 01/30/24 03:12 Lab Results 01/26/24 01/26/24 01/26/24 Range/Units 13:13 13:13 14:20 WBC 9.8 (3.8-10.6) k/uL RBC 4.75 (4.30-5.90) m/uL Hgb 13.7 (13.0-17.5) gm/dL Hct 42.7 (39.0-53.0) % MCV 89.9 D (80.0-100.0) fL MCH 28.9 (25.0-35.0) pg MCHC 32.2 (31.0-37.0) g/dL RDW 13.8 (11.5-15.5) % Plt Count 369 (150-450) k/uL MPV 7.3 Immature Gran % (Auto) % Absolute Nucleated RBC % Neutrophils % 75 % Lymphocytes % 20 % Monocytes % 3 % Eosinophils % 1 % Basophils % 0 % Immature Gran # (0.00-0.04) X 10*3/uL Neutrophils # 7.3 (1.3-7.7) k/uL Lymphocytes # 1.9 (1.0-4.8) k/uL Monocytes # 0.3 (0-1.0) k/uL Eosinophils # 0.1 (0-0.7) k/uL Basophils # 0.0 (0-0.2) k/uL NRBC/100 WBC Diff (0.00-0.01) X 10*3/uL Sodium 137 (137-145) mmol/L Potassium 4.7 (3.5-5.1) mmol/L Chloride 110 H (98-107) mmol/L Carbon Dioxide 22 (22-30) mmol/L Anion Gap 5 mmol/L BUN 18 (9-20) mg/dL Creatinine 1.22 (0.66-1.25) mg/dL Est GFR (CKD-EPI) (>=60) Est GFR (CKD-EPI)AfAm 77 (>60 ml/min/1.73 sqM) Est GFR (CKD-EPI)NonAf 67 (>60 ml/min/1.73 sqM) BUN/Creatinine Ratio (12.00-20.00) Ratio Glucose 88 (74-99) mg/dL POC Glucose (mg/dL) (70-110) mg/dL POC Glu Wool Tamper ID Estimated Ave Glu mg/dL mg/dL Hemoglobin A1c (<=6.0) % Calcium 10.0 (8.4-10.2) mg/dL Total Bilirubin 0.4 (0.2-1.3) mg/dL AST 22 (17-59) U/L ALT 15 (4-49) U/L Alkaline Phosphatase 97 (38-126) U/L Total Protein 6.7 (6.3-8.2) g/dL Albumin 4.2 (3.5-5.0) g/dL Blood Type O Positive Blood Type Recheck O Pos Bld Type Recheck Status No Antibody Screen NEGATIVE Spec Expiration Date 01/29/2024 - 231901/27/24 01/27/24 01/27/24 Range/Units 04:43 04:43 04:43 WBC 9.40 (3.8-10.6) k/uL RBC 4.65 (4.30-5.90) m/uL Hgb 13.3 (13.0-17.5) gm/dL Hct 40.9 (39.0-53.0) % MCV 88.0 (80.0-100.0) fL MCH 28.6 (25.0-35.0) pg MCHC 32.5 (31.0-37.0) g/dL RDW 14.1 (11.5-15.5) % Plt Count 364 (150-450) k/uL MPV 9.8 Immature Gran % (Auto) 0.30 % Absolute Nucleated RBC 0 % Neutrophils % 89.7 % Lymphocytes % 9.0 % Monocytes % 0.9 % Eosinophils % 0 % Basophils % 0.1 % Immature Gran # 0.03 (0.00-0.04) X 10*3/uL Neutrophils # 8.43 H (1.3-7.7) k/uL Lymphocytes # 0.85 L (1.0-4.8) k/uL Monocytes # 0.08 L (0-1.0) k/uL Eosinophils # 0 L (0-0.7) k/uL Basophils # 0.01 (0-0.2) k/uL NRBC/100 WBC Diff 0 (0.00-0.01) X 10*3/uL Sodium 140 (137-145) mmol/L Potassium 4.5 (3.5-5.1) mmol/L Chloride 108 (98-107) mmol/L Carbon Dioxide 20.9 L (22-30) mmol/L Anion Gap 11.10 mmol/L BUN 15.4 (9-20) mg/dL Creatinine 1.0 (0.66-1.25) mg/dL Est GFR (CKD-EPI) 89 (>=60) Est GFR (CKD-EPI)AfAm (>60 ml/min/1.73 sqM) Est GFR (CKD-EPI)NonAf (>60 ml/min/1.73 sqM) BUN/Creatinine Ratio 15.40 (12.00-20.00) Ratio Glucose 142 H (74-99) mg/dL POC Glucose (mg/dL) (70-110) mg/dL POC Glu Wool Tamper ID Estimated Ave Glu mg/dL 114 mg/dL Hemoglobin A1c 5.6 (<=6.0) % Calcium 9.8 (8.4-10.2) mg/dL Total Bilirubin (0.2-1.3) mg/dL AST (17-59) U/L ALT (4-49) U/L Alkaline Phosphatase (38-126) U/L Total Protein (6.3-8.2) g/dL Albumin (3.5-5.0) g/dL Blood Type Blood Type Recheck Bld Type Recheck Status Antibody Screen Spec Expiration Date 01/28/24 01/29/24 01/29/24 Range/Units 20:50 11:27 11:27 WBC 13.0 H (3.8-10.6) k/uL RBC 4.34 (4.30-5.90) m/uL Hgb 13.1 (13.0-17.5) gm/dL Hct 39.7 (39.0-53.0) % MCV 91.4 (80.0-100.0) fL MCH 30.1 (25.0-35.0) pg MCHC 32.9 (31.0-37.0) g/dL RDW 14.3 (11.5-15.5) % Plt Count 324 (150-450) k/uL MPV 7.9 Immature Gran % (Auto) % Absolute Nucleated RBC % Neutrophils % 86 % Lymphocytes % 8 % Monocytes % 5 % Eosinophils % 1 % Basophils % 0 % Immature Gran # (0.00-0.04) X 10*3/uL Neutrophils # 11.1 H (1.3-7.7) k/uL Lymphocytes # 1.0 (1.0-4.8) k/uL Monocytes # 0.7 (0-1.0) k/uL Eosinophils # 0.1 (0-0.7) k/uL Basophils # 0.0 (0-0.2) k/uL NRBC/100 WBC Diff (0.00-0.01) X 10*3/uL Sodium 139 (137-145) mmol/L Potassium 4.2 (3.5-5.1) mmol/L Chloride 108 H (98-107) mmol/L Carbon Dioxide 23 (22-30) mmol/L Anion Gap 8 mmol/L BUN 26 H (9-20) mg/dL Creatinine 1.10 (0.66-1.25) mg/dL Est GFR (CKD-EPI) (>=60) Est GFR (CKD-EPI)AfAm 87 (>60 ml/min/1.73 sqM) Est GFR (CKD-EPI)NonAf 75 (>60 ml/min/1.73 sqM) BUN/Creatinine Ratio (12.00-20.00) Ratio Glucose 133 H (74-99) mg/dL POC Glucose (mg/dL) 112 H (70-110) mg/dL POC Glu Wool Tamper ID Yfn Jimenez Estimated [address] Glu mg/dL mg/dL Hemoglobin A1c (<=6.0) % Calcium 9.7 (8.4-10.2) mg/dL Total Bilirubin (0.2-1.3) mg/dL AST (17-59) U/L ALT (4-49) U/L Alkaline Phosphatase (38-126) U/L Total Protein (6.3-8.2) g/dL Albumin (3.5-5.0) g/dL Blood Type Blood Type Recheck Bld Type Recheck Status Antibody Screen Spec Expiration Date 01/30/24 01/30/24 Range/Units 03:12 03:12 WBC 11.14 H (3.8-10.6) k/uL RBC 4.37 L (4.30-5.90) m/uL Hgb 12.4 L (13.0-17.5) gm/dL Hct 39.1 L (39.0-53.0) % MCV 89.5 (80.0-100.0) fL MCH 28.4 (25.0-35.0) pg MCHC 31.7 L (31.0-37.0) g/dL RDW 14.4 (11.5-15.5) % Plt Count 375 (150-450) k/uL MPV 10.7 Immature Gran % (Auto) 0.40 % Absolute Nucleated RBC 0 % Neutrophils % 83.9 % Lymphocytes % 10.6 % Monocytes % 5.0 % Eosinophils % 0 % Basophils % 0.1 % Immature Gran # 0.05 H (0.00-0.04) X 10*3/uL Neutrophils # 9.34 H (1.3-7.7) k/uL Lymphocytes # 1.18 (1.0-4.8) k/uL Monocytes # 0.56 (0-1.0) k/uL Eosinophils # 0 L (0-0.7) k/uL Basophils # 0.01 (0-0.2) k/uL NRBC/100 WBC Diff 0 (0.00-0.01) X 10*3/uL Sodium 141 (137-145) mmol/L Potassium 4.0 (3.5-5.1) mmol/L Chloride 108 (98-107) mmol/L Carbon Dioxide 24.2 (22-30) mmol/L Anion Gap 8.80 mmol/L BUN 19.3 (9-20) mg/dL Creatinine 1.1 (0.66-1.25) mg/dL Est GFR (CKD-EPI) 79 (>=60) Est GFR (CKD-EPI)AfAm (>60 ml/min/1.73 sqM) Est GFR (CKD-EPI)NonAf (>60 ml/min/1.73 sqM) BUN/Creatinine Ratio 17.55 (12.00-20.00) Ratio Glucose 120 H (74-99) mg/dL POC Glucose (mg/dL) (70-110) mg/dL POC Glu Wool Tamper ID Estimated Ave Glu mg/dL mg/dL Hemoglobin A1c (<=6.0) % Calcium 9.1 (8.4-10.2) mg/dL Total Bilirubin (0.2-1.3) mg/dL AST (17-59) U/L ALT (4-49) U/L Alkaline Phosphatase (38-126) U/L Total Protein (6.3-8.2) g/dL Albumin (3.5-5.0) g/dL Blood Type Blood Type Recheck Bld Type Recheck Status Antibody Screen Spec Expiration Date Disposition Clinical Impression: Intractable back pain Disposition: ADMITTED IP TO THIS HOSP Condition: Stable Is patient prescribed a controlled substance at d/c from ED?: No Time of Disposition: 16:24 Decision to Admit Reason: Admit from EC Decision Date: 01/26/24 Decision Time: 16:24
--- NOTE | 2024-01-26 15:01 | CT ---
EXAMINATION TYPE: CT thor lumbar spine wo con CT DLP: 1463.2 mGycm, Automated exposure control for dose reduction was used. DATE OF EXAM: 01/26/2024 2:45 PM CLINICAL INDICATION:Male, 53 years old with history of back pain; back pain hx of multiple back sxs. COMPARISON: Multiple CT lumbar spine with most recent 12/11/2023, MRI lumbar spine 08/01/2023 TECHNIQUE: Axial images of the thoracic and lumbar spine were obtained without contrast. Coronal and sagittal reformats were performed. CT Contrast: Contrast used: , none. Oral contrast used: none. FINDINGS: Thoracic: The thoracic vertebral bodies have preserved heights and alignment. Benign vertebral hemangioma invo lving the T4 vertebral body. Broad-based disc bulge with mild effacement of the anterior thecal sac at T12-L1. I do not see any ev idence of extradural defects nor significant spinal canal narrowing at other thoracic vertebral body level. Right-sided facet arthropathy at T11-T12 resulting in moderate right neural foraminal stenosis . Mild bilateral neural foraminal stenosis at T12-L1. Partial visualization of postsurgical changes from right shoulder arthroplasty. Remote healed right s ided rib fractures. Mild centrilobular emphysematous changes. Lumbar: 5 lumbar type vertebral bodies identified. Postsurgical changes from L3 through S1 with bilateral ped icular screws and disc fusion cages. Additional bilateral sacroiliac screws redemonstrated. Hardware creates streak artifact which limits evaluation. Hardware appears intact with stable alignment. The b ilateral L3 pedicular screws are again superiorly oriented within the vertebral body with erosion of the superior endplate. Grade 1 anterolisthesis of L5 on S1. There is again anterior wedging of the L1 vertebral body with mild retrolisthesis of L1 on L2. No evidence for acute fracture. Broad-based disc bulge at L1-L2 with mild effacement of the anterior thecal sac. Bilateral facet arth ropathies level without significant neural foraminal stenosis. No other level of significant central canal or neural foramen stenosis involving the lumbar spine within limitations of streak artifact fro m hardware. No surrounding definitive sizable fluid collection. IMPRESSION: 1. No evidence of acute fracture of the thoracolumbar spine. 2. Postsurgical changes of the lumbosacral spine redemonstrated with similar appearance of migration of the bilateral L3 pedicular screws eroding into the superior endplate of the L3 vertebral body. 3. Similar anterior wedge deformity of the L1 vertebral body with mild retrolisthesis of L1 on L2. 4. Multilevel disc degeneration at T12-L1 and L1-L2. [facility], , 01/26/2024 2:59 PM
[2024-01-26] MEDS ORDERED: HYDROcodone/APAP 5-325MG 1 EACH TAB PO PRN (15:16)
[2024-01-26] MEDS ORDERED: HYDROmorphone 0.5 MG/0.5 ML SYRINGE IVP PRN (15:16)
[2024-01-26] MEDS ORDERED: DEXTROSE 50% SYRINGE 50 ML IVP PRN ×2 (15:17)
[2024-01-26] MEDS ORDERED: NALOXONE 0.4 MG/ML 1 ML VIAL IV PRN (16:24)
[2024-01-26] MEDS: methylPREDNISolone SOD SUCCI 125 MG/2 ML VIAL IV SCH (17:06)
[2024-01-26] MEDS: ACETAMINOPHEN IV (For NPO) 1,000 MG in EMPTY BAG 1 BAG IVPB SCH (17:51)
[2024-01-26] MEDS: INSULIN ASPART (NovoLOG) 100 UNIT/ML VIAL SQ SCH (18:32)
[2024-01-26] MEDS: KETOROLAC 15 MG/ML 1 ML VIAL IVP SCH (20:38)
[2024-01-26] MEDS: HEPARIN SODIUM,PORCINE 5,000 UNIT/ML 1 ML VIAL SQ SCH (20:38)
--- NOTE | 2024-01-26 21:45 | CONS ---
CONSULTATION REASON FOR CONSULTATION: Advice regarding hyperlipidemia, migraine, other medical issues, requested by Orthopedic Surgery. HISTORY OF PRESENT ILLNESS: This is a 53-year-old gentleman with a past medical history of hyperlipidemia, GERD, migraines, and severe back pain. The patient apparently was seen by Dr. Holland and scheduled for surgery at the end of this month. The patient apparently went to [facility] also, was admitted, but the surgery could not be accommodated. The patient has severe back pain which radiated to both legs and difficulty in walking. He had multiple falls also. There is no history of any fever, rigors, or chills. PAST MEDICAL HISTORY: History of DJD, history of hyperlipidemia, history of migraines. Rest of the history and rest of the chart is also reviewed. HOME MEDICATIONS: Reviewed include oxycodone. Rest of the medications are noted, but not confirmed yet. ALLERGIES: Adhesives. FAMILY HISTORY: No history of heart disease or strokes in the family. SOCIAL HISTORY: Previous history of smoking, THC. REVIEW OF SYSTEMS: A 14-point review of systems is negative except as mentioned earlier. PHYSICAL EXAMINATION: VITAL SIGNS: Pulse is 119, blood pressure 126/82, respirations 24. HEENT: Conjunctivae normal. NECK: No JVD. CARDIOVASCULAR: S1, S2. RESPIRATIONS: Breath sounds diminished at the bases. ABDOMEN: Soft, nontender. LEGS: Otherwise, movements of the legs are painful. SLR is positive. Back tenderness also present. NERVOUS SYSTEM: Nonfocal. LABORATORY DATA: Reviewed. ASSESSMENT: 1. Severe intractable low back pain with gait dysfunction and falls. 2. Severe degenerative joint disease. 3. History of previous back surgeries and shoulder surgery. 4. Hyperlipidemia. 5. History of migraine. 6. Failure of outpatient treatment. RECOMMENDATIONS AND DISCUSSION: This is a 53-year-old gentleman presented with multiple complex medical issues. At this time, I recommend to continue current medications. Continue symptomatic treatment. Pain management. I would also recommend a short course of IV steroids. Otherwise, closely follow with Orthopedic Surgery. Prognosis guarded. Further recommendations to follow. The patient is medically stable at this time for any surgery. MMODL / IJN: [id number] /
[2024-01-26] MEDS: PREGABALIN 75 MG CAP PO SCH (22:11)
[2024-01-26] MEDS: methocarbamoL 750 MG TAB PO PRN (22:15)
--- NOTE | 2024-01-26 23:58 | P.HPOR ---
History of Present Illness H&P Date: 01/26/24 Chief Complaint: Lumbar Fracture 53 yo male presents due to low back pain that has been present for 1-2 weeks now. He has had several falls at home and had a fall at home end dec which landed him in the hospital for several days. He was found to have an L3 endplate fracture and at the time it was elected to treat non-op. 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 He has had the above issue for some time, but the L3 fractures with migration are new. I recommended surgery in the office last week and he agreed and was sent up for the next available slot which was FEB 05. He had TLSO brace and was wearing it. He had pain control and was comfortable in the office. He then went to [facility] for a second opinion by a collegue who also recommended surgery for fixation of this fracture and construct. He then went back to [facility] and was admitted through the ED for reasons unknown as the history gets confounded. While there he was there he reports he was told he needed surgery but that the next available slot was not for 6 weeks. He was then subsequently DC and contacted my office yesterday for appointment and recommendations due to another fall at home with increasing pain. The office recommended that he be evaluated in the ED for his pain and the fall. They then presented today for his pain and evaluation of the fall. He provided most of the history with frequent in terjections by his at bedside who provided the rest. The patient is in his miguel cart bed with tens unit on his low back. He appears to be uncomfortable. He answers all questions appropriately. He states pain in his low back that seems to radiate to his tailbone and down his legs. He states pain at the top of his incision as well and states that he feels like the screws are moving in his back. He states he is unable to ambulate without significant pain. He states he can feel the screws in his pelvis as well. He would not ambulate today, but has chronic weakness in DF/PF on the left. He states numbness/tingling in the left leg specifically. Denies any bowel or bladder issues. Denies any perineal numbness/tingling at this time. States no f/c/sob/cp at this time. Review of Systems 16 pt ROS completed and as stated in HPI. All other systems reviewed as negative. Past Medical History Past Medical History: GERD/Reflux, Hyperlipidemia Additional Past Medical History / Comment(s): Frequent migraine headaches especially w/stressful situations. Pain and burning down both legs.resolved since 1st surgery. left foot numbness, Back pain. History of Any Multi-Drug Resistant Organisms: None Reported Past Surgical History: Cholecystectomy, Hernia Repair, Orthopedic Surgery Additional Past Surgical History / Comment(s): multiple back surgeries X4, right shoulder sx, wrist sx, hernia repair, colonoscopy Past Anesthesia/Blood Transfusion Reactions: No Reported Reaction Additional Past Anesthesia/Blood Transfusion Reaction / Comment(s): No previous blood transfusions Past Psychological History: Anxiety Additional Psychological History / Comment(s): just placed on some new meds, hasn't been given dx. Smoking Status: Former smoker Past Alcohol Use History: None Reported Additional Past Alcohol Use History / Comment(s): Started smoking at age 16, 1/2 ppd, quit September 2019. Past Drug Use History: Marijuana Additional Drug Use History / Comment(s): Hx heavy Marijuana use daily use to help with pain control - Past Family History Mother Family Medical History: No Reported History Medications and Allergies Home Medications Medication Instructions Recorded Confirmed Type SUMAtriptan succinate [Imitrex] 50 mg PO DAILY PRN 12/12/17 01/26/24 History Pantoprazole Sodium [Protonix] 40 mg PO DAILY 04/16/21 01/26/24 History Fenofibrate [Lofibra] 160 mg PO DAILY 02/01/23 01/26/24 History Gabapentin 600 mg PO TID@0000,0800,1600 10/14/23 01/26/24 History Pregabalin [Lyrica] 150 mg PO BID@1000,2200 11/07/23 01/26/24 History oxyCODONE-APAP 10-325MG [Percocet 1 tab PO Q6HR PRN #28 tab 11/11/23 01/26/24 Rx 10-325 mg] methocarbamoL [Robaxin-750] 750 mg PO Q6H PRN 01/26/24 01/26/24 History Allergies Allergy/AdvReac Type Severity Reaction Status Date / Time adhesive Allergy Rash/Hives Verified 01/26/24 16:34 aspirin AdvReac Nausea Verified 01/26/24 16:34 Physical Examination Osteopathic Statement: *. No significant issues noted on an osteopathic structural exam other than those noted in the History and Physical/Consult. AOX3, Uncomfortable. Well healed midline posterior incisoin without ballotment, no signs of infection Tens unit in place and pt currently using for pain - Lumbar Spine Back pain: sudden onset, getting worse Pain modifiers: with flexion, with extension, with rotation right, with rotation left, at terminal ROM, throughout ROM Nerve symptoms: tingling of leg or foot: left, burning pain in leg or foot: left, buttock pain radiating to outside of leg: left, buttock pain radiating to front of leg: bilateral, leg or foot weakness: left Other nerve symptoms: abnormal gait, change in urinary habits Previous treatment: traction: not effective, previous hospitalization: not effective, heat: not effective, ice: not effective, NSAIDs: not effective, pain medication: not effective, muscle relaxant: not effective, nerve block: not effective, corticosteroid injection: not effective, surgery: effective, brace: e ffective, exercise: not effective, physical therapy: not effective, chiropractic: not effective, accupuncture: not effective, biofeedback: not effective, TENS unit: effective, psychotherapy: somewhat effective, other: somewhat effective Tenderness with palpation: lumbar spine, L/S junction, buttock, muscle spasm Appearance: normal Crepitus with motion: Yes ( Pain and palpable clunk with motion around the L3-4 segment. ) - L Spine: dermatomal strength & reflexes bilateral Strength: hip flexion: 4/5 Strength: hip extension: 4/5 Strength: knee flexion: 4/5 Strength: knee extension: 4/5 Strength: ankle dorsiflexion: 3/5 Strength: ankle plantar flexion: 4/5 Strength: ankle inversion: 4/5 Strength: ankle eversion: 4/5 Strength: great toe flexion: 4/5 Strength: great toe extension: 3/5 Reflexes: knee reflex: grade 1, ankle reflex: grade 1 Other reflexes: Babinski's: negative, clonus: negative Nerve sensory abnormalities: buttocks/perianal (S3, S4, S5): yes, entire leg: no, medial upper thigh: no, inguinal (L1): no, proximal thigh (L2): yes (LLE), distal thigh (L3): yes (LLE), knee (L4): no, lateral leg and first dorsal webspace (L5): yes (LLE), posterior leg and plantar foot (S1): yes (LLE), posterior thigh (S2): yes (LLE) Nerve tests: straight leg raising tests: positive, contralateral straight leg raising tests: negative Results CT reviewed Xrays reviewed again from office. L3 screw cutout with migration, proximal junctional failure, old L1 fracture with severe kyphotic deformity getting worse with severe L1-2 spondylosis and collapse getting worse as well. Failure of L3-Pelvis construct as well due to fractured L3 endplate and pedicles. No other osseous abnormalities. Good decompression noted L3-S1. No evidence of further stenosis or other hardware failure of the pelvis. No lesions. - Labs Labs: Abnormal Lab Results - Last 24 Hours (Table) 01/26/24 Range/Units 13:13 Chloride 110 H (98-107) mmol/L H & H 01/26/24 Range/Units 13:13 Hgb 13.7 (13.0-17.5) gm/dL Hct 42.7 (39.0-53.0) % Result Diagrams: 01/26/24 13:13 01/26/24 13:13 Assessment and Plan (1) Status post lumbar spinal fusion Current Visit: Yes Status: Acute Code(s): Z98.1 - ARTHRODESIS STATUS SNOMED Code(s): 22298710721460 (2) Fall from standing Current Visit: Yes Status: Acute Code(s): W19.XXXA - UNSPECIFIED FALL, INITIAL ENCOUNTER SNOMED Code(s): 7265993 (3) Intractable back pain Current Visit: Yes Status: Acute Code(s): M54.9 - DORSALGIA, UNSPECIFIED SNOMED Code(s): 841054063 (4) Intervertebral disc disorders with radiculopathy, lumbar region Current Visit: No Status: Acute Code(s): M51.16 - INTERVERTEBRAL DISC DISORDERS W RADICULOPATHY, LUMBAR REGION SNOMED Code(s): 763767170390652 (5) Intervertebral disc disorders with radiculopathy, lumbosacral region Current Visit: No Status: Acute Code(s): M51.17 - INTVRT DISC DISORDERS W RADICULOPATHY, LUMBOSACRAL REGION SNOMED Code(s): 99344878154985613 (6) Muscle wasting and atrophy, not elsewhere classified, left lower leg Current Visit: No Status: Acute Code(s): M62.562 - MUSCLE WASTING AND AT ROPHY, NEC, LEFT LOWER LEG SNOMED Code(s): 995920535373803 (7) Other spondylosis with myelopathy, lumbar region Current Visit: No Status: Acute Code(s): M47.16 - OTHER SPONDYLOSIS WITH MYELOPATHY, LUMBAR REGION SNOMED Code(s): 13550368 (8) Other spondylosis with radiculopathy, lumbar region Current Visit: No Status: Acute Code(s): M47.26 - OTHER SPONDYLOSIS WITH RADICULOPATHY, LUMBAR REGION SNOMED Code(s): 700880641 (9) Other spondylosis with radiculopathy, lumbosacral region Current Visit: No Status: Acute Code(s): M47.27 - OTHER SPONDYLOSIS WITH RADICULOPATHY, LUMBOSACRAL REGION SNOMED Code(s): 191901801 (10) Sciatic radiculitis Current Visit: No Status: Acute Code(s): M51.17 - INTVRT DISC DISORDERS W RADICULOPATHY, LUMBOSACRAL REGION SNOMED Code(s): 86726371 (11) Spinal stenosis, lumbar region with neurogenic claudication Current Visit: No Status: Acute Code(s): M48.062 - SPINAL STENOSIS, LUMBAR REGION WITH NEUROGENIC CLAUDICATION SNOMED Code(s): 85395686 (12) Lumbar spondylosis Current Visit: No Status: Chronic Code(s): M47.816 - SPONDYLOSIS W/O MYELOPATHY OR RADICULOPATHY, LUMBAR REGION SNOMED Code(s): 944975884 Plan: * Admit to spine service for pain control and work up. * pain control, add fentanyl patch due to chronic pain issues and control issues * CT of the T and L spine reviewed. ; * Medicine consult for evaluation and medical clearance for surgical intervention * Daily labs * VSPP * GI/DVT ppx as appropriate * Consider consult to pain mgt service for pain meds and chronic pain management * CXR * plan is for OR on Tuesday01/30/24 for revision with ORIF L3 fracture and T10- Pelvis stabilization I discussed this plan with the patient and his at length and they agree. We discussed risks and benefits of the procedure including but not limited to risks of bleeding infection damage to tissues nerve damage risk of reoperation risk of anesthesia up to and including they were willing to assume these risks and all the risks of surgery. They were willing to be admitted for pain control and work up with likely surgical intervention due to lumbar spine frac ture.
[2024-01-27] MEDS: GABAPENTIN 400 MG CAP PO SCH (00:06)
[2024-01-27 08:51] LABS: Basophils # (A) 0.01 X 10*3/uL (0.00-0.10); Basophils % (A) 0.1 %; Eosinophils # (A) 0 X 10*3/uL (0.04-0.35); Eosinophils % (A) 0 %; HCT 40.9 % (39.6-50.0); HGB 13.3 g/dL (13.0-17.0); Lymphocytes # (A) 0.85 X 10*3/uL (0.90-5.00); MCH 28.6 pg (27.0-32.0); MCHC 32.5 g/dL (32.0-37.0); Mean Platelet Volume 9.8 FL (9.5-12.2); Monocytes # (A) 0.08 X 10*3/uL (0.20-1.00); Monocytes % (A) 0.9 %; NRBC Per 100 WBC 0 X 10*3/uL (0.00-0.01); Neutrophils # (A) 8.43 X 10*3/uL (1.80-7.70); Neutrophils % (A) 89.7 %; Platelet Count 364 X 10*3/uL (140-440); RBC 4.65 X 10*6/uL (4.40-5.60); RDW 14.1 % (11.5-14.5)
[2024-01-27] MEDS: oxyCODONE-APAP 10-325MG 1 EACH TAB PO PRN (08:52)
[2024-01-27] MEDS: PANTOPRAZOLE 40 MG TABLET PO SCH (08:53)
[2024-01-27] MEDS: FENOFIBRATE 160 MG TAB PO SCH (08:55)
[2024-01-27 09:14] LABS: Blood Urea Nitrogen 15.4 mg/dL (9.0-27.0); Calcium 9.8 mg/dL (8.7-10.3); Carbon Dioxide 20.9 mmol/L (21.6-31.8); Chloride 108 mmol/L (96-109); Glucose 142 mg/dL (70-110); Potassium 4.5 mmol/L (3.5-5.5); Sodium 140 mmol/L (135-145)
--- NOTE | 2024-01-27 09:20 | P.PN ---
Subjective Progress Note Date: 01/27/24 Principal diagnosis: Lumbar fracture Intractable low back pain Patient seen and examined this morning. Patient is resting comfortably in bed. Patient states that his pain has improved with current regimen. He does report that he has been ambulatory to the restroom and reports that this does exacerbate his pain. Encourage patient to utilize ice packs as needed. Informed patient that we our working on moving his surgery to 01/30/24. He verbalizes understanding. Continue to encourage patient to utilize incentive spirometer while awake. No acute concerns at this time. Objective - Vital Signs Vital signs: Vital Signs Temp 97.9 F 01/27/24 07:00 Pulse 53 L 01/27/24 07:00 Resp 18 01/27/24 07:00 BP 120/77 01/27/24 07:00 Pulse Ox 96 01/27/24 07:00 FiO2 Intake & Output 01/26/24 01/27/24 01/27/24 18:59 06:59 18:59 Weight 83.915 kg 83.915 kg Other: Voiding Method Toilet Toilet Urinal Urinal # Voids 2 - Exam Physical Examination General: The patient is awake and alert, in no acute distress Skin: Skin is warm and dry with no obvious rashes or lesions. Eye: Pupils are equal, round and reactive to light, extra-ocular movements are intact; there is normal conjunctiva bilaterally. Neck: The neck is supple, there is no tenderness and ROM intact. Cardiovascular: There is a regular rate and rhythm. No murmur, rub or gallop is appreciated. Respiratory: Respirations are non-labored, breath sounds are equal. Gastrointestinal: Soft, non-distended, non-tender abdomen. Back: There is moderate tenderness to palpation in the midline and paralumbar region. There is no obvious deformity . Musculoskeletal: ROM limited secondary to pain and stiffness. Right: Shoulder abduction 5/5, elbow flexors 5/5, wrist dorsiflexors 5/5. finger abductor 5/5, roller shop utility worker 5/5, hip flexor 4/5, knee flexor 4/5, ankle dorsiflexor 4/5, ankle plantarflexion 3/5 and extensor hallucis 3/5. Left: Shoulder abduction 5/5, elbow flexors 5/5, wrist dorsiflexors 5/5. finger abductor 5/5, roller shop utility worker 5/5, hip flexor 4/5, knee flexor 4/5, ankle dorsiflexor 4/5, ankle plantarflexion 3/5 and extensor hallucis 3/5. Neurological: CN 2-12 intact. There are no obvious motor or sensory deficits. Movement and coordination equal and intact. Sensory exam to light touch intact C5-T1 and intact from L2-S1. Reflexes 2/4 in bilateral upper and lower extremities. Negative Hoffmans, babinski, and clonus signs. Special test: Straight leg raise; Positive bilateral Psychiatric: Cooperative, appropriate mood & affect, normal judgment. - Labs CBC & Chem 7: 01/27/24 04:43 01/27/24 04:43 Labs: Abnormal Lab Results - Last 24 Hours (Table) 01/26/24 01/27/24 Range/Units 13:13 04:43 Neutrophils # 8.43 H (1.80-7.70) X 10*3/uL Lymphocytes # 0.85 L (0.90-5.00) X 10*3/uL Monocytes # 0.08 L (0.20-1.00) X 10*3/uL Eosinophils # 0 L (0.04-0.35) X 10*3/uL Chloride 110 H (98-107) mmol/L
[2024-01-27] MEDS ORDERED: MAG HYDROX/AL HYDROX/SIMETH 30 ML CUP PO PRN (12:44)
[2024-01-27] MEDS: methylPREDNISolone SOD SUCCI 40 MG/ML 1 ML VIAL IV SCH (17:06)
[2024-01-27] MEDS: PANTOPRAZOLE 40 MG/10 ML VIAL IVP SCH (20:45)
[2024-01-27] MEDS ORDERED: MORPHINE SULFATE 2 MG/ML SYRINGE IVP PRN (21:43)
--- NOTE | 2024-01-28 02:07 | PN ---
PROGRESS NOTE DATE OF SERVICE: 01/27/2024 SUBJECTIVE: This is a 53-year-old gentleman admitted with significant back pain and failure of outpatient treatment. Has been to orthopedic surgery also. Dr. Holland is evaluating the patient for possible surgery on Tuesday. No chest pain. No palpitation. No fever. OBJECTIVE: VITAL SIGNS: Pulse 53, blood pressure 120/70, respirations 18. CHEST: Clear to auscultation. CARDIOVASCULAR: S1, S2. ABDOMEN: Soft. Back pain present. LABORATORY DATA: Noted. ASSESSMENT: 1. Severe intractable low back pain with gait dysfunction and falls. 2. Severe degenerative joint disease. 3. History of previous back surgery and shoulder surgery. 4. Hyperlipidemia. 5. History of migraines. 6. Failure of outpatient treatment. RECOMMENDATIONS: Recommend to continue current management and continue symptomatic treatment. I recommend to taper the steroids faster and surgery per Dr. Holland. MMODL / IJN: [id number] / MTDD
--- NOTE | 2024-01-28 09:51 | P.PN ---
Subjective Progress Note Date: 01/28/24 Principal diagnosis: Lumbar fracture Intractable low back pain Patient seen and examined this morning. Patient is sitting upright in bed. He does report he had an episode yesterday afternoon with increased intractable low back pain, that did subside with oral pain medication. Patient does report that he does ambulate to the restroom, otherwise he is resting in bed. No acute concerns. Objective - Vital Signs Vital signs: Vital Signs Temp 97.5 F L 01/28/24 07:00 Pulse 84 01/28/24 07:00 Resp 16 01/28/24 07:00 BP 106/58 01/28/24 07:00 Pulse Ox 95 01/28/24 07:00 FiO2 Intake & Output 01/27/24 01/28/24 01/28/24 18:59 06:59 18:59 Intake Total 118 400 Balance 118 400 Intake: Oral 118 400 Other: Voiding Method Toilet Toilet Urinal Urinal # Voids 2 2 - Exam Physical Examination General: The patient is awake and alert, in no acute distress Skin: Skin is warm and dry with no obvious rashes or lesions. Eye: Pupils are equal, round and reactive to light, extra-ocular movements are intact; there is normal conjunctiva bilaterally. Neck: The neck is supple, there is no tenderness and ROM intact. Cardiovascular: There is a regular rate and rhythm. No murmur, rub or gallop is appreciated. Respiratory: Respirations are non-labored, breath sounds are equal. Gastrointestinal: Soft, non-distended, non-tender abdomen. Back: There is moderate tenderness to palpation in the midline and paralumbar region. There is no obvious deformity . Musculoskeletal: ROM limited secondary to pain and stiffness. Right: Shoulder abduction 5/5, elbow flexors 5/5, wrist dorsiflexors 5/5. finger abductor 5/5, feather curling machine operator 5/5, hip flexor 4/5, knee flexor 4/5, ankle dorsiflexor 4/5, ankle plantarflexion 3/5 and extensor hallucis 3/5. Left: Shoulder abduction 5/5, elbow flexors 5/5, wrist dorsiflexors 5/5. finger abductor 5/5, feather curling machine operator 5/5, hip flexor 4/5, knee flexor 4/5, ankle dorsiflexor 4/5, ankle plantarflexion 3/5 and extensor hallucis 3/5. Neurological: CN 2-12 intact. There are no obvious motor or sensory deficits. Movement and coordination equal and intact. Sensory exam to light touch intact C5-T1 and intact from L2-S1. Reflexes 2/4 in bilateral upper and lower extremities. Negative Hoffmans, babinski, and clonus signs. Special test: Straight leg raise; Positive bilateral Psychiatric: Cooperative, appropriate mood & affect, normal judgment. - Labs CBC & Chem 7: 01/27/24 04:43 01/27/24 04:43 Assessment and Plan Assessment: 1. Status post lumbar spinal fusion 2. Fall from standing 3. Intractable back pain 4. Lumbar spondylosis Plan: Plan is for OR on Tuesday01/30/24 for revision with ORIF L3 fracture and T10- Pelvis stabilization 2. Appreciate medical management 3. Pain management -fentanyl patch, oral pain medication, Utilize ice therapy 20min every hour as needed. 4. GI prophylaxis -senna 5. DVT prophylaxis -heparin 6. PT/OT - weightbearing as tolerated with a walker as needed. 7. Appreciate consult.
[2024-01-28] MEDS: ACETAMINOPHEN TAB 500 MG TAB PO SCH (10:21)
[2024-01-28 20:52] LABS: Glucose,Whole Blood 112 mg/dL (70-110)
[2024-01-28] MEDS: HYDROmorphone 1 MG/ML 1 ML SYRINGE IVP STA (21:07)
[2024-01-28] MEDS: methocarbamoL 500 MG TAB PO PRN (21:22)
[2024-01-29] MEDS: TERBINAFINE 250 MG TAB PO SCH (08:44)
--- NOTE | 2024-01-29 09:13 | P.PN ---
Progress Note - Text Progress Note Date: 01/29/24 Patient was seen this morning. Patient's spouse was at bedside. Clinical Operations Consultant was notified via [email or web address] at 2026 on 01/28/2024 that patient was having an episode of increased back pain and spasming. Order was provided for Dilaudid 1 mg stat. It is documented that patient did find relief and was able to take oral medications. Informed patient and spouse that the fentanyl patch has been reordered to manage pain. Patient verbalizes understanding. Patient will be n.p.o. at midnight for surgery scheduled for tomorrow 01/30/2024.
--- NOTE | 2024-01-29 11:08 | P.PN ---
Subjective Progress Note Date: 01/28/24 53 yo male presents due to low back pain that has been present for 1-2 weeks now. He has had several falls at home and had a fall at home end of Dec which landed him in the hospital for several days. He was found to have an L3 endplate fracture and at the time it was elected to treat non-op. He since f ollowed up in the office with XRAY and this showed migration of his L3 screws, fusion construct failure L3-Pelvis with proximal junctional failure, severe kyphosis and stenosis as well as old L1 fracture. He has had the above issue for some time, but the L3 fractures with migration are new. I recommended surgery in the office last week and he agreed and was sent up for the next available slot which was FEB 05. He had TLSO brace and was wearing it. He had pain control and was comfortable in the office. He then went to [facility] for a second opinion by a collegue who also recommended surgery for fixation of this fracture and construct. He then went back to [facility] and was admitted through the ED for reasons unknown as the history gets confounded. While there he was there he reports he was told he needed surgery but that the next available slot was not for 6 weeks. He was then subsequently DC and contacted my office yesterday for appointment and recommendations due to another fall at home with increasing pain. --Patient and family had several questions regarding previous surgeries; patient's inability to heal and positive bone density test; patient has addressed this with primary orthopedic surgery and has recommended to follow-up with bone density test with primary care physician Objective - Vital Signs Vital signs: Vital Signs Temp 97.5 F L 01/28/24 07:00 Pulse 84 01/28/24 07:00 Resp 16 01/28/24 08:00 BP 106/58 01/28/24 07:00 Pulse Ox 95 01/28/24 07:00 FiO2 Intake & Output 01/27/24 01/28/24 01/28/24 18:59 06:59 18:59 Intake Total 118 400 540 Balance 118 400 540 Intake: Oral 118 400 540 Other: Voiding Method Toilet Toilet Toilet Urinal Urinal Urinal # Voids 2 2 - Exam General: The patient is awake and alert, in no acute distress Skin: Skin is warm and dry with no obvious rashes or lesions. Eye: Pupils are equal, round and reactive to light, extra-ocular movements are intact; there is normal conjunctiva bilaterally. Neck: The neck is supple, there is no tenderness and ROM intact. Cardiovascular: There is a regular rate and rhythm. No murmur, rub or gallop is appreciated. Respiratory: Respirations are non-labored, breath sounds are equal. Gastrointestinal: Soft, non-distended, non-tender abdomen. Back: There is moderate tenderness to palpation in the midline and paralumbar region. There is no obvious deformity Musculoskeletal: ROM limited secondary to pain and stiffness. Neurological: CN 2-12 intact. There are no obvious motor or sensory deficits. Movement and coordination equal and intact. Sensory exam to light touch intact C5-T1 and intact from L2-S1. Reflexes 2/4 in bilateral upper and lower extremities. Negative Hoffmans, babinski, and clonus signs. - Labs CBC & Chem 7: 01/27/24 04:43 01/27/24 04:43 Assessment and Plan Assessment: 1. Status post lumbar spinal fusion 2. Fall from standing 3. Intractable back pain 4. Lumbar spondylosis 5. Hyperlipidemia Plan is for OR on Tuesday01/30/24 for revision with ORIF L3 fracture and T10- Pelvis stabilization Pain management -fentanyl patch, oral pain medication, Utilize ice therapy 20min every hour as needed. PT/OT on board and recommended weightbearing as tolerated with walker as needed DVT prophylaxis -heparin CODE STATUS; full code
[2024-01-29 11:51] LABS: Basophils % (A) 0 %; Eosinophils # (A) 0.1 k/uL (0-0.7); Eosinophils % (A) 1 %; HCT 39.7 % (39.0-53.0); HGB 13.1 gm/dL (13.0-17.5); Lymphocytes % (A) 8 %; MCH 30.1 pg (25.0-35.0); MCHC 32.9 g/dL (31.0-37.0); MCV 91.4 fL (80.0-100.0); Mean Platelet Volume 7.9; Monocytes # (A) 0.7 k/uL (0-1.0); Monocytes % (A) 5 %; Neutrophils # (A) 11.1 k/uL (1.3-7.7); Neutrophils % (A) 86 %; Platelet Count 324 k/uL (150-450); RBC 4.34 m/uL (4.30-5.90); RDW 14.3 % (11.5-15.5)
[2024-01-29 11:53] LABS: African American GFR (CKD) 87 (>60 ml/min/1.73 sqM); Anion Gap 8 mmol/L; Blood Urea Nitrogen 26 mg/dL (9-20); Calcium 9.7 mg/dL (8.4-10.2); Carbon Dioxide 23 mmol/L (22-30); Chloride 108 mmol/L (98-107); Glucose 133 mg/dL (74-99); Non-African American GFR(CKD) 75 (>60 ml/min/1.73 sqM); Potassium 4.2 mmol/L (3.5-5.1); Sodium 139 mmol/L (137-145)
--- NOTE | 2024-01-29 17:18 | P.PN ---
Subjective Progress Note Date: 01/29/24 53 yo male presents due to low back pain that has been present for 1-2 weeks now. He has had several falls at home and had a fall at home end of Dec which landed him in the hospital for several days. He was found to have an L3 endplate fracture and at the time it was elected to treat non-op. He since f ollowed up in the office with XRAY and this showed migration of his L3 screws, fusion construct failure L3-Pelvis with proximal junctional failure, severe kyphosis and stenosis as well as old L1 fracture. He has had the above issue for some time, but the L3 fractures with migration are new. I recommended surgery in the office last week and he agreed and was sent up for the next available slot which was FEB 05. He had TLSO brace and was wearing it. He had pain control and was comfortable in the office. He then went to [facility] for a second opinion by a collegue who also recommended surgery for fixation of this fracture and construct. He then went back to [facility] and was admitted through the ED for reasons unknown as the history gets confounded. While there he was there he reports he was told he needed surgery but that the next available slot was not for 6 weeks. He was then subsequently DC and contacted my office yesterday for appointment and recommendations due to another fall at home with increasing pain. --Patient and family had several questions regarding previous surgeries; patient's inability to heal and positive bone density test; patient has addressed this with primary orthopedic surgery and has recommended to follow-up with bone density test with primary care physician Patient scheduled for surgery tomorrow morning; will be n.p.o. at midnight Objective - Vital Signs Vital signs: Vital Signs Temp 97.5 F L 01/29/24 07:00 Pulse 65 01/29/24 07:00 Resp 16 01/29/24 07:00 BP 113/70 01/29/24 07:00 Pulse Ox 99 01/29/24 07:00 FiO2 Intake & Output 01/28/24 01/29/24 01/29/24 18:59 06:59 18:59 Intake Total 1080 540 Balance 1080 540 Intake: Oral 1080 540 Other: Voiding Method Toilet Toilet Urinal Urinal # Voids 2 2 - Exam General: The patient is awake and alert, in no acute distress Skin: Skin is warm and dry with no obvious rashes or lesions. Eye: Pupils are equal, round and reactive to light, extra-ocular movements are intact; there is normal conjunctiva bilaterally. Neck: The neck is supple, there is no tenderness and ROM intact. Cardiovascular: There is a regular rate and rhythm. No murmur, rub or gallop is appreciated. Respiratory: Respirations are non-labored, breath sounds are equal. Gastrointestinal: Soft, non-distended, non-tender abdomen. Back: There is moderate tenderness to palpation in the midline and paralumbar region. There is no obvious deformity Musculoskeletal: ROM limited secondary to pain and stiffness. Neurological: CN 2-12 intact. There are no obvious motor or sensory deficits. Movement and coordination equal and intact. Sensory exam to light touch intact C5-T1 and intact from L2-S1. Reflexes 2/4 in bilateral upper and lower extre mities. Negative Hoffmans, babinski, and clonus signs. - Labs CBC & Chem 7: 01/29/24 11:27 01/29/24 11:27 Labs: Abnormal Lab Results - Last 24 Hours (Table) 01/28/24 Range/Units 20:50 POC Glucose (mg/dL) 112 H (70-110) mg/dL Assessment and Plan Assessment: 1. Status post lumbar spinal fusion 2. Fall from standing 3. Intractable back pain 4. Lumbar spondylosis 5. Hyperlipidemia Plan is for OR on Tuesday01/30/24 for revision with ORIF L3 fracture and [id number] stabilization Pain management -fentanyl patch, oral pain medication, Utilize ice therapy 20min every hour as needed. PT/OT on board and recommended weightbearing as tolerated with walker as needed DVT prophylaxis -heparin CODE STATUS; full code
[2024-01-29] MEDS: diazePAM 5 MG TAB PO ONE (23:00)
[2024-01-30] MEDS ORDERED: droPERidol 5 MG/2 ML VIAL IVP ONE (06:04)
[2024-01-30] MEDS ORDERED: TRANEXAMIC 1,000 MG/100ML-NACL 1,000 MG in SALINE 1 100ML.BAG IVPB PRN (07:00)
[2024-01-30] MEDS: ONDANSETRON 4 MG/2 ML VIAL IVP ONE (08:13)
[2024-01-30] MEDS: LACTATED RINGERS 1,000 ML IV SCH (08:28)
--- NOTE | 2024-01-30 08:54 | P.PN ---
Progress Note - Text Progress Note Date: 01/30/24 Spine Surgery Clinical and Risk Review LOKESH MAS is a 53 yo malepresenting for evaluation of Low back pain, LE pain and weakness with radiculopathy, s/p multiple falls with fracture in the lumbar spine and hardware failure. It was my pleasure to have seen and examined LOKESH MAS. In our visit today we have had a chance to go over subjective complaints, physical examination findings and treatments including the natural course history without intervention and various interventional options. The patient's imaging demonstrates the following findings: * L3 PEDICLE FRACTURE B/L WITH B/L PEDICLE SCREW LOOSENING AND FAILURE WITH MIGRATION * FUSION CONSTRUCT FAILURE WITH PJF * OLD L1 FRACTURE WITH SEVERE SEGMENTAL KYPHOSIS CAUSING SAGITTAL IMBALANCE AND COLLAPSE WITH STENOSIS * SEVERE STENOSIS NOTED T12-L2 DUE TO DRAPING AND On a physical exam, LOKESH MAS demonstrates the following findings: * LOW BACK PAIN * LE WEAKNESS AND RADICULOPATHY DESPITE CONSERVATIVE MEASURES BRACING AND MEDS * INABILITY TO AMBULATE * CHRONIC PAIN RELATED TO THIS * PROGRESSIVE PAIN AND NEUROLOGICAL SX WELL PROGRESSIVE CHANGES IN ALIGNMENT RELATED TO FRACTURE I have explained to the patient that as their condition progresses it will cause further neurological deficits and eventual paralysis. Based on the patients imaging, physical exam, and the rapid progression and disabling nature of their symptoms, at this time I recommend surgery in the form of a: REVISION [id number] DECOMPRESSION AND FUSION WITH OPEN TREATMENT L3 FRACTURE, STABILIZATION AND REVISION INSTRUMENTATION. I discussed the risk and benefits of this procedure at length with LOKESH MAS. The patient and significant other agreed to consider pursuing the procedure above mentioned. Prior to surgery, they should follow up with her PCP (Cardio, ID, IM etc) for clearance. Questions were invited and answered, and the patient wishes to proceed as outlined below. Currently, I am recommendin. REVISION [id number] DECOMPRESSION AND FUSION WITH OPEN TREATMENT L3 FRACTURE, STABILIZATION AND REVISION INSTRUMENTATION 2. Obtain appropriate presurgical workup and clearances as discussed with the patient. 3. Review of surgical risks and benefits as well as an educational packet on the proposed surgical procedure. Risks: All surgical procedures come with inherent risks, including those related to positioning, anesthesia, intraoperative findings, and postoperative complications. It is important to understand that surgery does not come with any guarantee of a successful outcome as complications and adverse events are always possible. The patient was given a handout in the office today discussing the surgical procedure and risks associated with the intervention, both of which were discussed with the patient. These risks include but are not limited to the following: Experiencing same, different or even worse symptoms in back, neck, arms, or legs compared to before surgery. Requiring further surgery or other forms of treatment presently or at some time in the future at same or other levels of the intended spine surgery. On an extreme but fortunately relatively rare basis severe complic ations such as blindness, stroke, heart attack, temporary and/or permanent nerve injury, paralysis, coma, or may occur, sometimes without known explanation. Surgical complications may include but are not limited to risk of infection, fluid accumulation in the surgical dissection site, including a seroma or hematoma, that requires additional surgery, wound drainage, bleeding, new numbness or weakness, vision changes/loss, spinal fluid leakage, non-healing and/or infected incision, headaches, difficulty or inability to swallow, hoarseness, hemopneumothorax, pneumothorax, impotence, retrograde ejaculation, vaginal dryness; injury to nerves, spinal cord, blood vessels, lymphatics or other vital organs (i.e., bowel injury, injury to the great vessels); heterotopic bone formation; complications related to the hardware such as screws, rods, cages including misplaced hardware, device failure, instrumentation at the wrong spine level, hardware fracture/breakage, or hardware loosening; vertebral failure of the spinal column above or below the newly placed hardware; retained surgical instrumentations or devices and the need for further surgery. Medical risks of the planned spine surgery include but are not limited to generalized Infections to the whole body or local areas outside of the surgical site (sepsis), heart attack, bleeding, anaphylaxis, meningitis, seiz ure, epilepsy, hearing loss, burn valerio, laceration of the head or other areas of the body, bruising, hypersensitivity of the skin, bladder over distension; allergic reaction; shoulder injury related to positioning; fat, blood and air clots to other areas of the body like heart, lungs, brain; failure of internal organs such as lungs, kidneys, liver and excessive bleeding. If blood transfusions are necessary, note that transfusions may cause intolerance reactions such as anaphylaxis or other complex reactions. Despite best efforts, the results of spine surgery might not heal in terms of bone, soft tissues such as skin, fascia, ligaments, and joints. Additionally, in order to achieve best possible results, spine surgery may be carried out beyond the initially planned levels and involve decompression, fusion including insertion of hardware at levels other than the original intended area of surgical interest change some portions of the procedure in order to ensure the best possible outcomes. With spine surgery and spinal fusion, there are different off label uses of instrumentation (devices, implants and hardware) as well as biological substances (bone morphogenic proteins, demineralized bone matrix) as well as using extra bone from allograft sources (i.e. cadaver bone) or autograft (iliac crest bone, ribs, or the spine itself). The patient has been given information about these practices and their inherent risks and benefits. The patient has had a chance to review all the listed information, has been given print outs detailing this information, and has had all his/her questions answered to their satisfaction. It was my pleasure to have seen and examined LOKESH MAS. In our visit today we have had a chance to go over my understanding of our patient's current condition, the natural course history without intervention and various interventional options. Questions were invited and answered, and the patient wishes to proceed as outlined above. I have seen and examined the patient for 25 minutes and we have spent more than 50% of the time in repeat and detailed counseling about the patient's condition, its natural course history without and as much as can be predicted with surgery and re-review of various surgical treatment options. In conclusion, LOKESH MAS and significant other requests we proceed with the above suggested surgery and are willing to accept risks and limitations of the suggested surgery as to the nature of the disease process and our best attempts at treatment for the condition. Thank you again for allowing us to be part of your patient's care. Please don't hesitate to contact me if you have any further questions. Signed and authenticated by: Hilario [facility] [address] [place] [address] [address]
[2024-01-30 09:04] LABS: BUN/Creat Ratio 17.55 Ratio (12.00-20.00); Blood Urea Nitrogen 19.3 mg/dL (9.0-27.0); Calcium 9.1 mg/dL (8.7-10.3); Carbon Dioxide 24.2 mmol/L (21.6-31.8); Chloride 108 mmol/L (96-109); Glucose 120 mg/dL (70-110); Sodium 141 mmol/L (135-145)
[2024-01-30 09:10] LABS: Basophils # (A) 0.01 X 10*3/uL (0.00-0.10); Basophils % (A) 0.1 %; Eosinophils # (A) 0 X 10*3/uL (0.04-0.35); Eosinophils % (A) 0 %; HCT 39.1 % (39.6-50.0); HGB 12.4 g/dL (13.0-17.0); Lymphocytes # (A) 1.18 X 10*3/uL (0.90-5.00); Lymphocytes % (A) 10.6 %; MCH 28.4 pg (27.0-32.0); MCHC 31.7 g/dL (32.0-37.0); MCV 89.5 FL (80.0-97.0); Mean Platelet Volume 10.7 FL (9.5-12.2); Monocytes # (A) 0.56 X 10*3/uL (0.20-1.00); NRBC Per 100 WBC 0 X 10*3/uL (0.00-0.01); Neutrophils # (A) 9.34 X 10*3/uL (1.80-7.70); Neutrophils % (A) 83.9 %; Platelet Count 375 X 10*3/uL (140-440); RBC 4.37 X 10*6/uL (4.40-5.60); RDW 14.4 % (11.5-14.5); WBC 11.14 X 10*3/uL (4.50-10.00)
[2024-01-30] MEDS: IV FLUID CONTINUATION 1,000 ML IV ONE (09:10)
[2024-01-30] MEDS: fentaNYL (PF) 50 MCG/ML 2 ML AMP IVP STA (09:35)
[2024-01-30] MEDS: MIDAZOLAM 2 MG/2 ML VIAL IV ONE (09:36)
[2024-01-30] MEDS ORDERED: TRANEXAMIC 1,000 MG/100ML-NACL PREMIX BAG ONE (10:20)
[2024-01-30] MEDS ORDERED: ONDANSETRON 4 MG/2 ML VIAL ONE (10:20)
[2024-01-30] MEDS ORDERED: ROCURONIUM 10 MG/ML (5 ML VIAL) IV ONE (10:20)
[2024-01-30] MEDS ORDERED: KETAMINE HCL IN 0.9 % NACL 50 MG/5 ML SYRINGE ONE (10:20)
[2024-01-30] MEDS ORDERED: PROPOFOL 10 MG/ML 20 ML VIAL IV ONE (10:20)
[2024-01-30] MEDS ORDERED: ePHEDrine 50 MG/ML 1 ML VIAL ONE (10:20)
[2024-01-30] MEDS ORDERED: HYDROmorphone (PF) 1 MG/ML ONE (10:20)
[2024-01-30] MEDS ORDERED: NEOSTIGMINE 1 MG/ML 10 ML VIAL ONE (10:20)
[2024-01-30] MEDS ORDERED: fentaNYL (PF) 50 MCG/ML 2 ML AMP ONE (10:20)
[2024-01-30] MEDS ORDERED: LIDOCAINE 1% INJ 10MG/ML (20 ML MDV) ONE (10:20)
[2024-01-30] MEDS ORDERED: SUCCINYLCHOLINE CHLORIDE 200 MG/10 ML VIAL IV ONE (10:20)
[2024-01-30] MEDS ORDERED: GLYCOPYRROLATE 0.2 MG/ML 2 ML VIAL ONE (10:20)
[2024-01-30] MEDS ORDERED: PHENYLEPHRINE 10 MG/ML VIAL ONE (10:20)
--- NOTE | 2024-01-30 10:35 | XR ---
EXAMINATION TYPE: XR chest 1V portable DATE OF EXAM: 01/30/2024 COMPARISON: 02/02/2023 CLINICAL INDICATION: Male, 53 years old with history of CENTRAL LINE PLACEMENT; , TECHNIQUE: XR chest 1V portable views of the chest. FINDINGS: The lungs are clear and there is no pneumothorax, pleural effusion, or focal pneumonia. Heart size normal and no overt failure. Osseous structures demonstrate hypertrophic and degenerative changes of the spine. Postsurgical change right shoulder and AC joint arthropathy bilaterally. Right-sided centr al line with tip overlying SVC. Linear scarring or atelectasis right midlung. IMPRESSION: 1. Right IJ central line with tip overlying SVC. No sizable pneumothorax. [facility], , 01/30/2024 10:33 AM
[2024-01-30] MEDS: LACTATED RINGERS 1,000 ML IV ONE ×3 (11:00→15:22)
[2024-01-30] MEDS: THROMBIN (BOVINE) 5,000 UNIT VIAL TOPICAL ONE (11:12)
[2024-01-30] MEDS: GENTAMICIN 80 MG in SODIUM CHLORIDE 0.9% IRRIGATIO 3,000 ML IRRIGATION ONE (11:12)
[2024-01-30] MEDS: ceFAZolin 3,000 MG in SODIUM CHLORIDE 0.9% IRRIGATIO 3,000 ML IRRIGATION ONE (11:12)
--- NOTE | 2024-01-30 12:52 | P.ANPRN ---
Procedure Note - Anesthesia - Invasive Line Right Central Line Time Out Performed: Yes (0935) Date of Procedure: 01/30/24 Time of Procedure: 09:36 Location of Patient: PreOp Preparation: Sterile Prep, Sterile Dressing Central Line Location: Internal Jugular (right IJ ELVIS) Ultrasound Used: Yes Purpose - Visualization and Identification of Vasculature: Yes Needle Guage: 18g angio Image Stored and Saved: Yes Narrative: Invasive line placement per sterile protocol utilized. Anesthesia note Procedure: Right internal jugular central venous catheter insertion: Double- lumen catheter Sterile protocol followed. Right neck prepped. Ultrasound used. Lidocaine 1% used. Using ultrasound local anesthetic was instilled site over right Internal Jugular vein. Angiocath was used to gain access via ultrasound. Once free flow non-pulsatile blood flow was confirmed, 12 inch extension tubing was then placed on Angiocath. Once central venous pressure was confirmed, J-wire was then placed through Angiocath. Angiocath was then withdrawn. Local was instilled at J-wire site. Small skin arpita was then made with provided sterile scalpel. Right IJ double-lumen catheter was then inserted over the wire while maintaining control of wire at all times. Uneventful insertion with dilation. Free flow nonpulsatile blood flow through catheter. Hooked up to IV tubing. Secured with suture. Dressings applied. Drapes Removed. Attempts x1.
--- NOTE | 2024-01-30 12:52 | P.ANPRN ---
Procedure Note - Anesthesia - Invasive Line Right Arterial Line Time Out Performed: Yes (0935) Date of Procedure: 01/30/24 Time of Procedure: 09:44 Location of Patient: PreOp Preparation: Sterile Prep, Sterile Dressing Arterial Line Location: Radial (Right) Ultrasound Used: Yes Purpose - Visualization and Identification of Vasculature: Yes Needle Guage: 20g Image Stored and Saved: Yes Narrative: Invasive line placement per sterile protocol utilized.
--- NOTE | 2024-01-30 13:53 | P.PN ---
Subjective Progress Note Date: 01/30/24 53 yo male presents due to low back pain that has been present for 1-2 weeks now. He has had several falls at home and had a fall at home end of Dec which landed him in the hospital for several days. He was found to have an L3 endplate fracture and at the time it was elected to treat non-op. 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 He has had the above issue for some time, but the L3 fractures with migration are new. I recommended surgery in the office last week and he agreed and was sent up for the next available slot which was FEB 05. He had TLSO brace and was wearing it. He had pain control and was comfortable in the office. He then went to [facility] for a second opinion by a collegue who also recommended surgery for fixation of this fracture and construct. He then went back to [facility] and was admitted through the ED for reasons unknown as the history gets confounded. While there he was there he reports he was told he needed surgery but that the next available slot was not for 6 weeks. He was then subsequently DC and contacted my office yesterday for appointment and recommendations due to another fall at home with increasing pain. --Patient and family had several questions regarding previous surgeries; patient's inability to heal and positive bone density test; patient has addressed this with primary orthopedic surgery and has recommended to follow-up with bone density test with primary care physician Patient scheduled for surgery tomorrow morning; will be n.p.o. at midnight 01/30/2024 Patient is currently n.p.o. and scheduled for surgical intervention with orthopedics Dr. Holland. Will await official report and continue to follow and make adjustments and further recommendations postsurgical. Patient is medically stable for surgical intervention at this time. Review of systems: Constitutional: No reports of fatigue, fever, or chills Cardiovascular: No reports of chest pain or palpitations Respiratory: No reports of shortness of breath or cough GI: No reports of nausea, vomiting, or diarrhea : No reports of dysuria or retention Neurovascular: reports of weakness and continued back pain Physical exam: General: The patient is awake and alert, in no acute distress Skin: Skin is warm and dry with no obvious rashes or lesions. Eye: Pupils are equal, round and reactive to light, extra-ocular movements are intact; there is normal conjunctiva bilaterally. Neck: The neck is supple, there is no tenderness and ROM intact. Cardiovascular: There is a regular rate and rhythm. No murmur, rub or gallop is appreciated. Respiratory: Respirations are non-labored, breath sounds are equal. Gastrointestinal: Soft, non-distended, non-tender abdomen. Back: There is moderate tenderness to palpation in the midline and paralumbar region. There is no obvious deformity Musculoskeletal: ROM limited secondary to pain and stiffness. Neurological: CN 2-12 intact. There are no obvious motor or sensory deficits. Movement and coordination equal and intact. Sensory exam to light touch intact C5-T1 and intact from L2-S1. Reflexes 2/4 in bilateral upper and lower e xtremities. Negative Hoffmans, babinski, and clonus signs. Assessment: Fall from standing with intractable back pain Lumbar spondylosis Hyperlipidemia Obesity with a BMI 31.8 Status post lumbar spinal fusion GI prophylaxis DVT prophylaxis Full code Plan: Patient is currently n.p.o. and scheduled to undergo surgical intervention including revision with ORIF for L3 fracture and T10 through pelvis stabilization Continue with pain management per orthopedics PT/OT therapy to evaluate postsurgical We will continue to follow with orthopedics during hospitalization. Thank you kindly for this consultation. The impression and plan of care has been dictated by Emili Sharpe, Nurse Practitioner as directed. Dr. Olu MD I have performed a history and examination and MDM of this patient, discussed the same with the dictator, and agree with the dictator's assessment and plan as written ,documented as a scribe. Based on total visit time, I have performed more than 50% of the visit. Objective - Vital Signs Vital signs: Vital Signs Temp 98.8 F 01/30/24 08:45 Pulse 62 01/30/24 10:22 Resp 16 01/30/24 10:22 BP 124/81 01/30/24 08:45 Pulse Ox 98 01/30/24 10:22 FiO2 Intake & Output 01/29/24 01/30/24 01/30/24 18:59 06:59 18:59 Intake Total 1620 152 Balance 1620 152 Intake: IV 152 Oral 1620 Other: Voiding Method Toilet Toilet Urinal # Voids 2 1 - Labs CBC & Chem 7: 01/30/24 03:12 01/30/24 03:12 Labs: Abnormal Lab Results - Last 24 Hours (Table) 01/30/24 01/30/24 Range/Units 03:12 03:12 WBC 11.14 H (4.50-10.00) X 10*3/uL RBC 4.37 L (4.40-5.60) X 10*6/uL Hgb 12.4 L (13.0-17.0) g/dL Hct 39.1 L (39.6-50.0) % MCHC 31.7 L (32.0-37.0) g/dL Immature Gran # 0.05 H (0.00-0.04) X 10*3/uL Neutrophils # 9.34 H (1.80-7.70) X 10*3/uL Eosinophils # 0 L (0.04-0.35) X 10*3/uL Glucose 120 H (70-110) mg/dL
[2024-01-30] MEDS: SODIUM CHLORIDE 0.9% 100 ML with ceFAZolin 2,000 MG IV ONE (14:27)
[2024-01-30] MEDS: VANCOMYCIN 1,000 MG VIAL MISCELLANE ONE (15:18)
--- NOTE | 2024-01-30 16:23 | FL ---
EXAMINATION TYPE: FL guidance operating room, XR lumbar spine 2 or 3V DATE OF EXAM: 01/30/2024 4:16 PM COMPARISON: Pre Operative Images if available both CT/MRI or plain film CLINICAL INDICATION: Male, 53 years old with history of LUMBAR FUSION; TECHNIQUE: FL guidance operating room, XR lumbar spine 2 or 3V, multiple fluoroscopic images provided for procedure. Total fluoroscopy time: 3 min 39 seconds Total submitted images to PACS: 9 DAP: 24.128 mGym2 Gycm2 uGym2 cGycm2 or equivalent. FINDINGS: Fluoroscopic images during internal fixation/arthroplasty demonstrate hardware in appropriate positio n. Hardware appears intact. No immediate complication identified. IMPRESSION: 1. No evidence for intraoperative complication. 2. Please see the operative/procedural note for further details. [facility], , 01/30/2024 4:21 PM
[2024-01-30] MEDS: HYDROmorphone 0.5 MG/0.5 ML SYRINGE IVP PRN (17:15)
--- NOTE | 2024-01-30 17:29 | P.PN ---
Progress Note - Text Progress Note Date: 01/30/24 BRIEF POST OP: DIAGNOSIS: L3 FRACTURE WITH PROXIMAL JUNCTIONAL FAILURE, STENOSIS, LE WEAKNESS, SPASM, LOW BACK PAIN PROCEDURE: REVISION [id number] DECOMPRESSION AND FUSION WITH L3 OPEN TREATMENT AND STABILIZATION SURGEON: SAMMY ANESTHESIA: JOSSELINEA EBL: 600 CC FLUIDS: 2300 URINE: 400 COMPLICATION: NONE DISPO: STABLE TO PACU PT S/E IN PACU HE IS RESTING IN BED. HE IS IN SOME PAIN CURRENTLY AND NURSING IS GETTING HIM PAIN MEDICATIONS. VSS AT THIS TIME. HE IS RESPONDING TO COMMANDS AND MOVING ALL 4 EXT WITH REASONABLE STRENGTH. DRESSING CDI. DRAIN IN PLACE. POST OP PLAN: 4S WITH TELE DANGLE AT BEDSIDE OK PAIN CONTROL NEEDED POST OP NONCONTRASTED CT SCAN OF THORACOLUMBAR SPINE GI/DVT PPX DAILY LABS MEDICAL MANAGEMENT
[2024-01-30] MEDS: HYDROmorphone 1 MG/ML 1 ML SYRINGE IVP PRN (20:07)
--- NOTE | 2024-01-31 09:21 | CT ---
EXAMINATION TYPE: CT thor lumbar spine wo con DATE OF EXAM: 01/31/2024 12:12 AM COMPARISON: 01/26/2024 CLINICAL INDICATION: Male, 53 years old with history of s/p revision [id number] decompression fusion, s/p revision [id number] decompression fusion, TECHNIQUE: Contiguous axial scanning of the thoracic and lumbar spine without IV contrast. Coronal an d sagittal reconstructions performed. CT DLP: 1501.2 mGycm, Automated exposure control for dose reduction was used. FINDINGS: Redemonstrated posterior and interbody lumbar fusion L3-S1 levels with fixed grade 1 anterolisthesis at L5-S1 and L3-L4. There has been interval revision of the previously lucent transpedicular screws a t L3 with cement augmentation. Additional interval extension of posterior and interbody lumbar fusion up to the T12 level and clinical rn manager ior fusion up to the T10 level. Vertebroplasty change now present at both T10 and T11. No new vertebral compression collapse. Extension of previous laminectomies now up through the T12 level. Foci of air in the posterior soft t issues relating to recent operation. A surgical drain is also present. The posterior fusion hardware extends down through the pelvis. Moderate emphysematous change in the visualized lungs. Some strandy densities particularly on the rig ht probably represent areas of atelectasis. IMPRESSION: 1. REDEMONSTRATED L3 THROUGH PELVIC fusion changes with laminectomy. 2. Interval postoperative changes with extension of fusion up to the T10 level with placement of ceme nt at both the T10 and T11 vertebra and revision of the previously loosened L3 transpedicular screws, augmented now with cement. Extension of laminectomies now up to the T12 level. 3. Fixed grade 1 spondylolisthesis L1-L2, L3-L4, and L5-S1. [facility], , 01/31/2024 9:19 AM
--- NOTE | 2024-01-31 11:30 | P.PN ---
Subjective Progress Note Date: 01/31/24 Principal diagnosis: L3 FRACTURE WITH PROXIMAL JUNCTIONAL FAILURE, STENOSIS, LE WEAKNESS, SPASM, LOW BACK PAIN Patient was seen at bedside this morning lying in semirecumbent position with Rosa/catheter in place as well as drain and dressing in place over thoracolumbar spine. Patient states pain is well-controlled this morning. He says he did get up with therapy and walk across the hallway and back into his bed. Patient states she is having more what he describes as a pressure in the back at this time other than pain. Patient does mention a little bit of left lower extremity pain but overall does note improvement since yesterday after surgery. Patient states no bowel movement yet, however, patient says he has not had much to eat since surgery last night. Patient denies any other orthopedic complaints at this time. Objective - Vital Signs Vital signs: Vital Signs Temp 97.4 F L 01/31/24 07:53 Pulse 83 01/31/24 07:53 Resp 16 01/31/24 07:53 BP 109/77 01/31/24 07:53 Pulse Ox 97 01/31/24 07:53 FiO2 Intake & Output 01/30/24 01/31/24 01/31/24 18:59 06:59 18:59 Intake Total 3052 290 Output Total 895 800 150 Balance 2157 -510 -150 Intake: IV 3052 Intake, IV Titration 290 Amount Sodium Chloride 0.9% 100 240 ml @ 0 mls/hr IV .STK-MED ONE with ceFAZolin 2,000 mg Rx#:[id number] ceFAZolin 2 gm In Sodium 50 Chloride 0.9% 50 ml @ 100 mls/hr IVPB Q8H [facility] Rx#: [id number] Output: Drainage 250 150 Left Lower Posterior Back 250 150 Urine 295 550 Estimated Blood Loss 600 Other: Voiding Method Toilet Indwelling Catheter - Exam General: The patient is awake and alert, in no acute distress Skin: Skin is warm and dry with no obvious rashes or lesions. Dressing appears to be clean, dry, intact over thoracolumbar spine. Moderate serosanguineous output present in drain. Maintain drain to full suction at this time. Eye: Pupils are equal, round and reactive to light, extra-ocular movements are intact; there is normal conjunctiva bilaterally. Neck: The neck is supple, there is no tenderness and ROM intact. Cardiovascular: There is a regular rate and rhythm. No murmur, rub or gallop is appreciated. Respiratory: Respirations are non-labored, breath sounds are equal. Gastrointestinal: Soft, non-distended, non-tender abdomen. Back: There is moderate tenderness to palpation in the midline and paralumbar region. There is no obvious deformity . Musculoskeletal: ROM limited secondary to pain and stiffness. Right: Shoulder abduction 5/5, elbow flexors 5/5, wrist dorsiflexors 5/5. finger abductor 5/5, hair clipper power 5/5, hip flexor 4/5, knee flexor 4/5, ankle dorsiflexor 4/5, ankle plantarflexion 3/5 and extensor hallucis 3/5. Left: Shoulder abduction 5/5, elbow flexors 5/5, wrist dorsiflexors 5/5. finger abductor 5/5, hair clipper power 5/5, hip flexor 4/5, knee flexor 4/5, ankle dorsiflexor 4/5, ankle plantarflexion 3/5 and extensor layla lucis 3/5. Neurological: CN 2-12 intact. There are no obvious motor or sensory deficits. Movement and coordination equal and intact. Sensory exam to light touch intact C5-T1 and intact from L2-S1. Reflexes 2/4 in bilateral upper and lower extremities. Negative Hoffmans, babinski, and clonus signs. Special test: Straight leg raise; Positive bilateral Psychiatric: Cooperative, appropriate mood & affect, normal judgment. - Labs CBC & Chem 7: 01/30/24 03:12 01/30/24 03:12 Assessment and Plan Assessment: 1. L3 FRACTURE WITH PROXIMAL JUNCTIONAL FAILURE, STENOSIS, LE WEAKNESS, SPASM, LOW BACK PAIN Postop day 1 status post revision [id number] decompression and fusion with L3 open treatment and stabilization Plan: 1. L3 FRACTURE WITH PROXIMAL JUNCTIONAL FAILURE, STENOSIS, LE WEAKNESS, SPASM, LOW BACK PAIN -surgery performed yesterday, Tuesday, 4revision [id number] decompression and fusion with L3 open treatment and stabilization. Patient stable at bedside this morning with drain intact and dressing intact over lumbar spine. Rosa/catheter is currently in place. Continue pain medication as needed. Weightbearing as tolerated with walker and assistance as needed. PT/OT daily. Encouraged to perform gentle range of motion exercises while resting in bed. Heart healthy diet. We will continue to follow patient during stay in hospital. Dressing appears to be clean, dry, intact over thoracolumbar spine. Moderate serosanguineous output present in drain. Maintain drain to full suction at this time. Assess dressing daily. Nursing to chart drain output every 8 hours. Discharge pending. 2. Appreciate medical management 3. Pain management -Percocet; fentanyl; Toradol 4. DVT prophylaxis -heparin 5. GI prophylaxis -senna; MiraLAX 6. PT/OT -weightbearing as tolerated with walker and assistance as needed 7. Encourage incentive spirometer use 8. Discharge planning -pending Time with Patient: Less than 30
[2024-01-31 11:43] LABS: Glucose,Whole Blood 132 mg/dL (70-110)
[2024-01-31] MEDS: oxyCODONE-APAP 10-325MG 1 EACH TAB PO PRN ×2 (15:32→22:26)
--- NOTE | 2024-01-31 22:16 | PN ---
PROGRESS NOTE DATE OF SERVICE: 01/31/2024 SUBJECTIVE: This is a 53-year-old gentleman who was admitted with significant back pain and lumbar DJD, underwent revision of the T10 pelvis decompression and fusion with L3 open treatment and stabilization. No chest pain. No palpitations. No fever. OBJECTIVE: VITAL SIGNS: Pulse is 83, blood pressure 109/76, respirations 16. CHEST: Clear to auscultation. CARDIOVASCULAR: S1, S2. ABDOMEN: Soft. LABORATORY DATA: WBC 11.4. Other labs are noted. ASSESSMENT: 1. Intractable back pain as well as lumbar degenerative joint disease with spondylosis, status post surgery. 2. Hyperlipidemia. 3. Obesity. 4. Gastrointestinal prophylaxis. RECOMMENDATIONS: Recommend to continue current medications and continue symptomatic treatment. Otherwise, at this time, I would recommend continue the current medications. DVT prophylaxis. Pain management. Closely follow with Orthopedic Surgery. Further recommendations to follow. MMODL / MARGIEN: [id number] /
--- NOTE | 2024-02-01 08:45 | P.PN ---
Subjective Progress Note Date: 02/01/24 Principal diagnosis: L3 FRACTURE WITH PROXIMAL JUNCTIONAL FAILURE, STENOSIS, LE WEAKNESS, SPASM, LOW BACK PAIN Patient was seen at bedside this morning lying; position with and nursing staff present during encounter. Patient states he is in more pain this morning than he was yesterday. Patient is hoping to work with therapy later today to walk onto the hallway. Patient states she has been a unable to find a somewhat comfortable position this morning and was not able to get very much sleep overnight due to the pain and the tightness he has feeling in his back. Fole y/catheter is currently in place. Dressing in place over thoracolumbar spine with drain in place on full suction. Patient denies any other orthopedic complaints at this time. Objective - Vital Signs Vital signs: Vital Signs Temp 97.4 F L 02/01/24 07:43 Pulse 83 02/01/24 07:43 Resp 18 02/01/24 07:43 BP 96/66 02/01/24 07:43 Pulse Ox 95 02/01/24 07:43 FiO2 Intake & Output 01/31/24 02/01/24 02/01/24 18:59 06:59 18:59 Intake Total 240 Output Total 250 1150 Balance -250 -910 Intake: Oral 240 Output: Drainage 250 200 Left Lower Posterior Back 250 200 Urine 950 Other: Voiding Method Indwelling Catheter Indwelling Catheter - Exam General: The patient is awake and alert, in no acute distress Skin: Skin is warm and dry with no obvious rashes or lesions. Dressing appears to be clean, dry, intact over thoracolumbar spine. Postoperative dressing was taken down. Matthew appear to be well aligned and intact. Negative for any drainage from incision. New dressing was placed over incision. Moderate serosanguineous output in drain. Maintain drain to full suction at this time. Eye: Pupils are equal, round and reactive to light, extra-ocular movements are intact; there is normal conjunctiva bilaterally. Neck: The neck is supple, there is no tenderness and ROM intact. Cardiovascular: There is a regular rate and rhythm. No murmur, rub or gallop is appreciated. Respiratory: Respirations are non-labored, breath sounds are equal. Gastrointestinal: Soft, non-distended, non-tender abdomen. Back: There is moderate tenderness to palpation in the midline and paralumbar region. There is no obvious deformity . Musculoskeletal: ROM limited secondary to pain and stiffness. Right: Shoulder abduction 5/5, elbow flexors 5/5, wrist dorsiflexors 5/5. finger abductor 5/5, roofing machine tender 5/5, hip flexor 4/5, knee flexor 4/5, ankle dorsiflexor 4/5, ankle plantarflexion 3/5 and extensor hallucis 3/5. Left: Shoulder abduction 5/5, elbow flexors 5/5, wrist dorsiflexors 5/5. finger abductor 5/5, roofing machine tender 5/5, hip flexor 4/5, knee flexor 4/5, ankle dorsiflexor 4/5, ankle plantarflexion 3/5 and extensor hallucis 3/5. Neurological: CN 2-12 intact. There are no obvious motor or sensory deficits. Movement and coordination equal and intact. Sensory exam to light touch intact C5-T1 and intact from L2-S1. Reflexes 2/4 in bilateral upper and lower ex tremities. Negative Hoffmans, babinski, and clonus signs. Special test: Straight leg raise; Positive bilateral Psychiatric: Cooperative, appropriate mood & affect, normal judgment. - Labs CBC & Chem 7: 01/30/24 03:12 01/30/24 03:12 Labs: Abnormal Lab Results - Last 24 Hours (Table) 01/31/24 Range/Units 11:42 POC Glucose (mg/dL) 132 H (70-110) mg/dL Assessment and Plan Assessment: 1. L3 FRACTURE WITH PROXIMAL JUNCTIONAL FAILURE, STENOSIS, LE WEAKNESS, SPASM, LOW BACK PAIN Postop day 2 status post revision [id number] decompression and fusion with L3 open treatment and stabilization Plan: 1. L3 FRACTURE WITH PROXIMAL JUNCTIONAL FAILURE, STENOSIS, LE WEAKNESS, SPASM, LOW BACK PAIN -surgery performed Tuesday, 4revision [id number] decompression and fusion with L3 open treatment and stabilization. Patient stable at bedside this morning with drain intact and dressing intact over lumbar spine. Rosa/catheter is currently in place. Continue pain medication as needed. Weightbearing as tolerated with walker and assistance as needed. PT/OT daily. Encouraged to perform gentle range of motion exercises while resting in bed. Heart healthy diet. We will continue to follow patient during stay in hospital. Dressing changed at bedside this morning. Matthew well aligned and intact. Negative for any active drainage. Moderate serosanguineous output present in drain. Maintain drain to full suction at this time. Assess dressing daily. Nursing to chart drain output every 8 hours. Discharge pending. 2. Appreciate medical management 3. Pain management -Percocet; fentanyl; Toradol 4. DVT prophylaxis -heparin 5. GI prophylaxis -senna; MiraLAX 6. PT/OT -weightbearing as tolerated with walker and assistance as needed 7. Encourage incentive spirometer use 8. Discharge planning -pending Time with Patient: Less than 30
[2024-02-01] MEDS: methocarbamoL 750 MG TAB PO SCH (14:59)
[2024-02-01 21:16] LABS: Glucose,Whole Blood 103 mg/dL (70-110)
--- NOTE | 2024-02-02 07:45 | P.PN ---
Subjective Progress Note Date: 02/02/24 Patient seen and examined this morning is doing okay is in some pain. is at bedside. He states that he was not given his meds on time. He states is having a lot of pain in his low back which his legs. His x-ray signs of tensioning over. He states he is up to the chair yesterday and walking to the hallway yesterday. His Shah is still in place he denies any bowel or bladder issues he states he has not had a bowel movement yet. He denies any perineal numbness or tingling. Objective - Vital Signs Vital signs: Vital Signs Temp 97.8 F 02/02/24 01:17 Pulse 74 02/02/24 01:17 Resp 17 02/02/24 01:17 BP 128/76 02/02/24 01:17 Pulse Ox 93 L 02/02/24 01:17 FiO2 Intake & Output 02/01/24 02/02/24 02/02/24 18:59 06:59 18:59 Output Total 170 1300 Balance -170 -1300 Output: Drainage 170 100 Left Lower Posterior Back 170 100 Urine 1200 Other: Voiding Method Indwelling Catheter Indwelling Catheter - Exam PHYSICAL EXAMINATION: Vitals: Stable General: Awake, alert, appropriate for age, in no acute distress. HEENT: No unusual neck masses around region of lateral neck triangle, thyroid, supraclavicular groove. Extremities: Skin warm and dry without no acute lesions, coloration, temperature, skin intact, no tenderness or erythema. Integument: Hairy patches: Absent Dorsal skin dimples: Absent Cafe au lait spots: Absent Surgical incisions: Clean and dry dressings changed today mild drainage from the drain insertion site drain is in place with 20 mL of serosanguineous fluid. Dressing replaced with operative foam Palpation: Please see Pain drawing on Intake sheet for further detail. (Tenderness = T, Nontender = NT, Swelling = S, Ecchymosis = E) Findings on Midline and paraspinal palpation and percussion: Cervical: NT Thoracic: NT Lumbar: Mild tenderness to palpation throughout Sacral: NT Special findings: None VASCULAR STATUS : Wrist Pulses: [2/4 bilateral radial and ulnar] Pedal Pulses: [2/4 bilateral DP and PT] Color: [Normal] Edema: [None] NEUROLOGIC EXAMINATION: Mental Status: Awake and alert, fully oriented, with normal attention, concentration and memory, and fluent, appropriate speech. Cranial Nerves: I: Olfactory not tested. II: Visual acuity normal, no visual field deficit noted with confrontation. III,IV: Normal pupillary reflexes & intact extraocular movements without ny stagmus. V,: Intact symmetrical facial sensation. VII: Intact symmetrical facial motor movement VIII: Hearing intact. IX,X: Intact gag, swallow, & normal voice. XI: Sternocleidomastoid, trapezius function intact. XII: Tongue midline with normal movements. Special Tests: L'hermitte's Sign: Absent Spurling'Sign: Absent Bilateral Cubital percussion test: Absent Bilateral Ramila-Tinel sign - Carpal region: Absent Bilateral Straight Leg Raising: Absent Bilateral Motor Exam (0-5/5, N/T) STRENGTH UPPER EXTREMITY [5]/5 in all major muscle groups of the UE b/l [Except:] LOWER EXTREMITY 4/5 in all major muscle groups of the LE b/l Left lower extremity shows 4 minus in dorsiflexion REFLEXES Upper Extremity: RIGHT - [2]/4 LEFT - [2]/4 Lower Extremity: RIGHT - [2]/4 LEFT - [2]/4 Pathological Reflexes Nevarez's: RIGHT - [Absent] LEFT - [Absent] Babinski: RIGHT - [Absent] LEFT - [Absent] Clonus: RIGHT-[None] LEFT- [None] SENSORY Pain and LT sense RIGHT: [Intact C5-T1 and L2-S1] LEFT: [Intact C5-T1 and L2-S1] Dermatomal deficit: [none] Gait and Functional Evaluation: Ambulatory aids: Walker - Labs CBC & Chem 7: 01/30/24 03:12 01/30/24 03:12 Assessment and Plan Assessment: Postoperative 3 status post T10 to pelvis revision decompression fusion L3 fracture with hardware failure status post fall from standing complex medical and social patient (1) Status post lumbar spinal fusion Current Visit: Yes Status: Acute Code(s): Z98.1 - ARTHRODESIS STATUS SNOMED Code(s): 71248106532792 (2) Fall from standing Current Visit: Yes Status: Acute Code(s): W19.XXXA - UNSPECIFIED FALL, INITIAL ENCOUNTER SNOMED Code(s): 5857442 (3) Intractable back pain Current Visit: Yes Status: Acute Code(s): M54.9 - DORSALGIA, UNSPECIFIED SNOMED Code(s): 310344854 (4) Intervertebral disc disorders with radiculopathy, lumbar region Current Visit: No Status: Acute Code(s): M51.16 - INTERVERTEBRAL DISC DISORDERS W RADICULOPATHY, LUMBAR REGION SNOMED Code(s): 167629744454071 (5) Intervertebral disc disorders with radiculopathy, lumbosacral region Current Visit: No Status: Acute Code(s): M51.17 - INTVRT DISC DISORDERS W RADICULOPATHY, LUMBOSACRAL REGION SNOMED Code(s): 17832772901116921 (6) Muscle wasting and atrophy, not elsewhere classified, left lower leg Current Visit: No Status: Acute Code(s): M62.562 - MUSCLE WASTING AND ATROPHY, NEC, LEFT LOWER LEG SNOMED Code(s): 697495120205151 (7) Other spondylosis with myelopathy, lumbar region Current Visit: No Status: Acute Code(s): M47.16 - OTHER SPONDYLOSIS WITH MYELOPATHY, LUMBAR REGION SNOMED Code(s): 86718505 (8) Other spondylosis with radiculopathy, lumbar region Current Visit: No Status: Acute Code(s): M47.26 - OTHER SPONDYLOSIS WITH RADICULOPATHY, LUMBAR REGION SNOMED Code(s): 944609223 (9) Other spondylosis with radiculopathy, lumbosacral region Current Visit: No Status: Acute Code(s): M47.27 - OTHER SPONDYLOSIS WITH RADICULOPATHY, LUMBOSACRAL REGION SNOMED Code(s): 797797176 (10) Sciatic radiculitis Current Visit: No Status: Acute Code(s): M51.17 - INTVRT DISC DISORDERS W RADICULOPATHY, LUMBOSACRAL REGION SNOMED Code(s): 92993429 (11) Spinal stenosis, lumbar region with neurogenic claudication Current Visit: No Status: Acute Code(s): M48.062 - SPINAL STENOSIS, LUMBAR REGION WITH NEUROGENIC CLAUDICATION SNOMED Code(s): 11880986 (12) Lumbar spondylosis Current Visit: No Status: Chronic Code(s): M47.816 - SPONDYLOSIS W/O MYELOPATHY OR RADICULOPATHY, LUMBAR REGION SNOMED Code(s): 621896912 Plan: -Appreciate clinical program consultant and team management. -Activity: Ambulate QID, OOB all meals, up and about, limit lifting bending twisting to less than 5 lbs. Use walker or cane if needed for stability. -Daily PT/OT, increase ambulation strength and balance. -[Brace when up and about, not needed in bed or chair] -Pain control: We will review medications and change to extend her release tablets followed by Percocet been scheduled medications for better pain control. -Meds: [reviewed] -GI ppx: senna, Miralax -DC shah when up and about, bedside commode if needed -DVT PPX: [OK to restart Heparin tonight] -Hygiene: Shower today. Maintain dressing clean and dry. Meticulous cleaning after BMs away from incision site -Drains: [Maintain for now. Record output] -Encourage IS 10x/hr -Dispo:Expected discharge in 1-2 days
--- NOTE | 2024-02-02 08:27 | PN ---
PROGRESS NOTE DATE OF SERVICE: 02/01/2024 SUBJECTIVE: This is a 53-year-old gentleman who was admitted with intractable back pain as well as lumbar DJD, had surgery. No chest pain. No palpitations. The patient has some pressure type of pain. PHYSICAL EXAMINATION: VITAL SIGNS: Pulse is 115, blood pressure ntd respirations 18. CHEST: Clear to auscultation. CARDIOVASCULAR: S1, S2. ABDOMEN: Soft. NERVOUS SYSTEM: Nonfocal. LABORATORY DATA: WBC 11.14. ASSESSMENT: 1. Intractable back pain as well as lumbar degenerative joint disease with spondylosis status post surgery. 2. Elevated WBC, possibly reactive. 3. Hyperlipidemia. 4. Obesity. 5. GI prophylaxis. RECOMMENDATIONS: C/W current meds. DVT prophylaxis MMODL / IJN: [id number] / MTDD
[2024-02-02] MEDS ORDERED: oxyCODONE-APAP 10-325MG 1 EACH TAB PO PRN (08:29)
[2024-02-02] MEDS: KETOROLAC 15 MG/ML 1 ML VIAL IM SCH (09:07)
[2024-02-02] MEDS: oxyCODONE-APAP 10-325MG 1 EACH TAB PO SCH (09:08)
[2024-02-02 09:20] LABS: Basophils # (A) 0.01 X 10*3/uL (0.00-0.10); Basophils % (A) 0.1 %; Eosinophils # (A) 0.12 X 10*3/uL (0.04-0.35); Eosinophils % (A) 1.4 %; HCT 22.6 % (39.6-50.0); HGB 7.3 g/dL (13.0-17.0); Lymphocytes # (A) 2.82 X 10*3/uL (0.90-5.00); Lymphocytes % (A) 33.5 %; MCH 28.7 pg (27.0-32.0); MCHC 32.3 g/dL (32.0-37.0); Mean Platelet Volume 10.3 FL (9.5-12.2); Monocytes # (A) 0.71 X 10*3/uL (0.20-1.00); Monocytes % (A) 8.4 %; NRBC Per 100 WBC 0 X 10*3/uL (0.00-0.01); Neutrophils # (A) 4.73 X 10*3/uL (1.80-7.70); Neutrophils % (A) 56.2 %; Platelet Count 179 X 10*3/uL (140-440); RBC 2.54 X 10*6/uL (4.40-5.60); RDW 14.6 % (11.5-14.5); WBC 8.42 X 10*3/uL (4.50-10.00)
[2024-02-02 10:26] LABS: ALT 11 U/L (10-49); AST 24 U/L (14-35); Albumin 2.7 g/dL (3.8-4.9); Alkaline Phosphatase 54 U/L (41-126); BUN/Creat Ratio 15.78 Ratio (12.00-20.00); Blood Urea Nitrogen 14.2 mg/dL (9.0-27.0); Calcium 7.8 mg/dL (8.7-10.3); Carbon Dioxide 24.6 mmol/L (21.6-31.8); Chloride 105 mmol/L (96-109); Globulin 1.5 g/dL (1.6-3.3); Glucose 101 mg/dL (70-110); Potassium 3.6 mmol/L (3.5-5.5); Sodium 138 mmol/L (135-145); Total Bilirubin 0.2 mg/dL (0.3-1.2); Total Protein 4.2 g/dL (6.2-8.2)
[2024-02-02] MEDS: diazePAM 5 MG TAB PO SCH (12:14)
[2024-02-02] MEDS: CHOLECALCIFEROL 125 MCG (5000 IU) TABLET PO SCH (12:14)
[2024-02-02] MEDS: ASPIRIN 81 MG PO SCH (12:14)
[2024-02-02] MEDS: ASCORBIC ACID 500 MG TAB PO SCH (12:14)
[2024-02-02] MEDS: KETOROLAC 15 MG/ML 1 ML VIAL IVP SCH (12:15)
[2024-02-02] MEDS: polyethylene glycoL 3350 17 GM POWD.PACK PO SCH (12:18)
--- NOTE | 2024-02-03 10:05 | P.PN ---
Subjective Progress Note Date: 02/02/24 53 yo male presents due to low back pain that has been present for 1-2 weeks now. He has had several falls at home and had a fall at home end dec which landed him in the hospital for several days. He was found to have an L3 endplate fracture and at the time it was elected to treat non-op. 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 He has had the above issue for some time, but the L3 fractures with migration are new. I recommended surgery in the office last week and he agreed and was sent up for the next available slot which was FEB 05. He had TLSO brace and was wearing it. He had pain control and was comfortable in the office. He then went to [facility] for a second opinion by a collegue who also recommended surgery for fixation of this fracture and construct. He then went back to [facility] and was admitted through the ED for reasons unknown as the history gets confounded. While there he was there he reports he was told he needed surgery but that the next available slot was not for 6 weeks. He was then subsequently DC and contacted my office yesterday for appointment and recommendations due to another fall at home with increasing pain. --Patient and family had several questions regarding previous surgeries; patient's inability to heal and positive bone density test; patient has addressed this with primary orthopedic surgery and has recommended to follow-up with bone density test with primary care physician Patient scheduled for surgery tomorrow morning; will be n.p.o. at midnight 01/30/2024 Patient is currently n.p.o. and scheduled for surgical intervention with orthopedics Dr. Holland. Will await official report and continue to follow and make adjustments and further recommendations postsurgical. Patient is medically stable for surgical intervention at this time. 02/02/2024 Patient is seen in follow-up today reporting severe 10/10 pain and reports that he is not being woken up to give his pain medications hence the reason why he is in continuous severe pain. Patient reports he is not sleeping very well and feels extremely weak. Awaiting updated PT/OT therapy notes. Orthopedics following and patient continues on fentanyl patch along with Valium, gabapentin, Toradol, Percocets along with IV Dilaudid. Recommend limiting IV narcotic use and encouraged increase activity as tolerated. Hemoglobin was 7.3 with no active bleeding noted and labs have not been drawn in a couple days as recent hemoglobin was 12.4. White count has normalized and patient is afebrile. Will follow-up with repeat labs and recommend a transfusion if hemoglobin is 7 or less. Review of systems: Constitutional: reports of fatigue, no fever, or chills Cardiovascular: No reports of chest pain or palpitations Respiratory: No reports of shortness of breath or cough GI: No reports of nausea, vomiting, or diarrhea reports not having frequent bowel movements and feels slightly constipated although is passing some gas, reports of intermittent nausea at times : No reports of dysuria or retention Neurovascular: reports of extreme weakness and continued 10/10 back pain Physical exam: General: The patient is asleep although easily arousable awake and alert, in no acute distress, well-developed, elderly appearing, obese Skin: Skin is warm and dry with no obvious rashes or lesions. Eye: Pupils are equal, round and reactive to light, extra-ocular movements are intact; there is normal conjunctiva bilaterally. Neck: The neck is supple, there is no tenderness and ROM intact. Cardiovascular: There is a regular rate and rhythm. No murmur, rub or gallop is appreciated. Respiratory: Respirations are non-labored, breath sounds are equal. Gastrointestinal: Soft, non-distended, non-tender abdomen. Back: There is moderate tenderness to palpation in the midline and paralumbar region. There is no obvious deformity Musculoskeletal: ROM limited secondary to pain and stiffness. Neurological: CN 2-12 intact. There are no obvious motor or sensory deficits. Movement and coordination equal and intact. Sensory exam to light touch intact C5-T1 and intact from L2-S1. Reflexes 2/4 in bilateral upper and lower extremities. Negative Hoffmans, babinski, and clonus signs. Assessment: Fall from standing with intractable back pain status post revision T10 through pelvis decompression and fusion with L3 open treatment and stabilization Lumbar spondylosis status post Hyperlipidemia Obesity with a BMI 31.8 Status post lumbar spinal fusion GI prophylaxis DVT prophylaxis Full code Plan: Patient is at his postsurgical revision with orthopedics including pelvis stabilization and reporting severe 10/10 pain. Continue with pain management per orthopedics, adjust accordingly and recommend limiting IV narcotic use PT/OT therapy to evaluate postsurgical and will await. Patient may benefit from ECF for continued PT/OT therapy for strength and mobility We will continue to follow with orthopedics during hospitalization. Thank you kindly for this consultation. The impression and plan of care has been dictated by Emili Sharpe, Nurse Practitioner as directed. Dr. Olu MD I have performed a history and examination and MDM of this patient, discussed the same with the dictator, and agree with the dictator's assessment and plan as written ,documented as a scribe. Based on total visit time, I have performed more than 50% of the visit. Objective - Vital Signs Vital signs: Vital Signs Temp 98.3 F 02/03/24 07:04 Pulse 91 02/03/24 07:04 Resp 18 02/03/24 07:04 BP 97/59 02/03/24 07:04 Pulse Ox 94 L 02/03/24 07:04 FiO2 Intake & Output 02/02/24 02/03/24 02/03/24 18:59 06:59 18:59 Intake Total 540 Output Total 170 1870 Balance -170 -1330 Intake: Oral 540 Output: Drainage 170 70 Left Lower Posterior Back 170 70 Urine 1800 Other: Voiding Method Indwelling Catheter Indwelling Catheter - Labs CBC & Chem 7: 02/02/24 03:29 02/02/24 03:29 Labs: Abnormal Lab Results - Last 24 Hours (Table) 02/02/24 Range/Units 03:29 Calcium 7.8 L (8.7-10.3) mg/dL Total Bilirubin 0.2 L (0.3-1.2) mg/dL Total Protein 4.2 L (6.2-8.2) g/dL Albumin 2.7 L (3.8-4.9) g/dL Globulin 1.5 L (1.6-3.3) g/dL
[2024-02-03 12:17] LABS: Basophils % (A) 0 %; Eosinophils # (A) 0.2 k/uL (0-0.7); Eosinophils % (A) 1 %; HCT 27.6 % (39.0-53.0); HGB 9.2 gm/dL (13.0-17.5); Lymphocytes # (A) 1.2 k/uL (1.0-4.8); Lymphocytes % (A) 11 %; MCH 30.4 pg (25.0-35.0); MCHC 33.3 g/dL (31.0-37.0); MCV 91.1 fL (80.0-100.0); Mean Platelet Volume 8.8; Monocytes # (A) 0.4 k/uL (0-1.0); Monocytes % (A) 4 %; Neutrophils # (A) 8.9 k/uL (1.3-7.7); Neutrophils % (A) 82 %; Platelet Count 280 k/uL (150-450); RBC 3.03 m/uL (4.30-5.90); RDW 15.4 % (11.5-15.5); WBC 10.8 k/uL (3.8-10.6)
--- NOTE | 2024-02-03 17:32 | P.PN ---
Subjective Progress Note Date: 02/03/24 Principal diagnosis: L3 FRACTURE WITH PROXIMAL JUNCTIONAL FAILURE, STENOSIS, LE WEAKNESS, SPASM, LOW BACK PAIN Patient was seen at bedside this morning lying; position with and nursing staff present during encounter. Patient states he has been in a lot of pain even though he has been up walking on his own and into hallway. Patient states she has been a unable to find a somewhat comfortable position this morning and was not able to get very much sleep overnight due to the pain and the tightness he has feeling in his back. Shah/catheter is currently in place. Dressing in place over thoracolumbar spine with drain in place on full suction. Patient denies any other orthopedic complaints at this time. Objective - Vital Signs Vital signs: Vital Signs Temp 98.3 F 02/03/24 07:04 Pulse 91 02/03/24 07:04 Resp 18 02/03/24 08:45 BP 97/59 02/03/24 07:04 Pulse Ox 94 L 02/03/24 07:04 FiO2 Intake & Output 02/02/24 02/03/24 02/03/24 18:59 06:59 18:59 Intake Total 540 Output Total 170 1870 Balance -170 -1330 Intake: Oral 540 Output: Drainage 170 70 Left Lower Posterior Back 170 70 Urine 1800 Other: Voiding Method Indwelling Catheter Indwelling Catheter Indwelling Catheter - Exam General: The patient is awake and alert, in no acute distress Skin: Skin is warm and dry with no obvious rashes or lesions. Dressing appears to be clean, dry, intact over thoracolumbar spine. [place] appear to be well aligned and intact. Negative for any drainage from incision. Moderate se rosanguineous output in drain. Maintain drain to gravity at this time Eye: Pupils are equal, round and reactive to light, extra-ocular movements are intact; there is normal conjunctiva bilaterally. Neck: The neck is supple, there is no tenderness and ROM intact. Cardiovascular: There is a regular rate and rhythm. No murmur, rub or gallop is appreciated. Respiratory: Respirations are non-labored, breath sounds are equal. Gastrointestinal: Soft, non-distended, non-tender abdomen. Back: There is moderate tenderness to palpation in the midline and paralumbar region. There is no obvious deformity . Musculoskeletal: ROM limited secondary to pain and stiffness. Right: Shoulder abduction 5/5, elbow flexors 5/5, wrist dorsiflexors 5/5. finger abductor 5/5, automobile parts assembler 5/5, hip flexor 4/5, knee flexor 4/5, ankle dorsiflexor 4/5, ankle plantarflexion 3/5 and extensor hallucis 3/5. Left: Shoulder abduction 5/5, elbow flexors 5/5, wrist dorsiflexors 5/5. finger abductor 5/5, automobile parts assembler 5/5, hip flexor 4/5, knee flexor 4/5, ankle dorsiflexor 4/5, ankle plantarflexion 3/5 and extensor hallucis 3/5. Neurological: CN 2-12 intact. There are no obvious motor or sensory deficits. Movement and coordination equal and intact. Sensory exam to light touch intact C5-T1 and intact from L2-S1. Reflexes 2/4 in bilateral upper and lower extremities. Negative Hoffmans, babinski, and clonus signs. Special test: Straight leg raise; Positive bilateral Psychiatric: Cooperative, appropriate mood & affect, normal judgment. - Labs CBC & Chem 7: 02/03/24 11:58 02/02/24 03:29 Labs: Abnormal Lab Results - Last 24 Hours (Table) 02/03/24 Range/Units 11:58 WBC 10.8 H (3.8-10.6) k/uL RBC 3.03 L (4.30-5.90) m/uL Hgb 9.2 L D (13.0-17.5) gm/dL Hct 27.6 L (39.0-53.0) % Neutrophils # 8.9 H (1.3-7.7) k/uL Assessment and Plan Assessment: 1. L3 FRACTURE WITH PROXIMAL JUNCTIONAL FAILURE, STENOSIS, LE WEAKNESS, SPASM, LOW BACK PAIN Postop day 4 status post revision [id number] decompression and fusion with L3 open treatment and stabilization Plan: 1. L3 FRACTURE WITH PROXIMAL JUNCTIONAL FAILURE, STENOSIS, LE WEAKNESS, SPASM, LOW BACK PAIN -surgery performed Tuesday, 4revision [id number] decompression and fusion with L3 open treatment and stabilization. Patient stable at bedside this morning with drain intact and dressing intact over lumbar spine. Shah/catheter is currently in place. Nursing to remove shah. Continue pain medication as needed. Weightbearing as tolerated with walker and assistance as needed. PT/OT daily. Encouraged to perform gentle range of motion exercises while resting in bed. Heart healthy diet. We will continue to follow patient during stay in hospital. Dressing CDI. Matthew well aligned and intact. Negative for any active drainage. Fair amount serosanguineous output present in drain. Keep drain to gravity. Assess dressing daily. Nursing to chart drain output every 8 hours. Discharge pending, likely home Tuesday 2. Appreciate medical management 3. Pain management -Percocet; fentanyl; Toradol 4. DVT prophylaxis -heparin 5. GI prophylaxis -senna; MiraLAX 6. PT/OT -weightbearing as tolerated with walker and assistance as needed 7. Encourage incentive spirometer use 8. Discharge planning -pending, likely home Tuesday02/06/2024 Time with Patient: Less than 30
[2024-02-04] MEDS ORDERED: TEMAZEPAM 7.5 MG CAP PO PRN (02:11)
--- NOTE | 2024-02-04 02:11 | P.PN ---
Subjective Progress Note Date: 02/03/24 53 yo male presents due to low back pain that has been present for 1-2 weeks now. He has had several falls at home and had a fall at home end dec which landed him in the hospital for several days. He was found to have an L3 endplate fracture and at the time it was elected to treat non-op. 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 He has had the above issue for some time, but the L3 fractures with migration are new. I recommended surgery in the office last week and he agreed and was sent up for the next available slot which was FEB 05. He had TLSO brace and was wearing it. He had pain control and was comfortable in the office. He then went to [facility] for a second opinion by a collegue who also recommended surgery for fixation of this fracture and construct. He then went back to [facility] and was admitted through the ED for reasons unknown as the history gets confounded. While there he was there he reports he was told he needed surgery but that the next available slot was not for 6 weeks. He was then subsequently DC and contacted my office yesterday for appointment and recommendations due to another fall at home with increasing pain. --Patient and family had several questions regarding previous surgeries; patient's inability to heal and positive bone density test; patient has addressed this with primary orthopedic surgery and has recommended to follow-up with bone density test with primary care physician Patient scheduled for surgery tomorrow morning; will be n.p.o. at midnight 01/30/2024 Patient is currently n.p.o. and scheduled for surgical intervention with orthopedics Dr. Holland. Will await official report and continue to follow and make adjustments and further recommendations postsurgical. Patient is medically stable for surgical intervention at this time. 02/02/2024 Patient is seen in follow-up today reporting severe 10/10 pain and reports that he is not being woken up to give his pain medications hence the reason why he is in continuous severe pain. Patient reports he is not sleeping very well and feels extremely weak. Awaiting updated PT/OT therapy notes. Orthopedics following and patient continues on fentanyl patch along with Valium, gabapentin, Toradol, Percocets along with IV Dilaudid. Recommend limiting IV narcotic use and encouraged increase activity as tolerated. Hemoglobin was 7.3 with no active bleeding noted and labs have not been drawn in a couple days as recent hemoglobin was 12.4. White count has normalized and patient is afebrile. Will follow-up with repeat labs and recommend a transfusion if hemoglobin is 7 or less. 02/03/2024 Patient is seen in follow-up currently sitting in bed reports he feels exhausted not able to sleep much and continues to report significant pain. Pain medications adjusted and will continue current regimen. Will add sleep aid as needed and recommend monitoring closely as patient is taking multiple pain medications as well. Patient is afebrile with no reports of chest pain or shortness of breath. Patient has been tolerating diet reports not much of an appetite due to pain. Passing gas with no bowel movement as of yet. Continue to encourage incentive spirometer. Review of systems: Constitutional: reports of fatigue, no fever, or chills Cardiovascular: No reports of chest pain or palpitations Respiratory: No reports of shortness of breath or cough GI: No reports of nausea, vomiting, no reports of diarrhea, reports not having bowel movements and feels slightly constipated although is passing some gas, reports of intermittent nausea at times : No reports of dysuria or retention Neurovascular: reports of extreme weakness and continued 10/10 back pain Physical exam: General: The patient is awake and alert, in no acute distress, well-developed, elderly appearing, obese, appears exhausted. Skin: Skin is warm and dry with no obvious rashes or lesions. Eye: Pupils are equal, round and reactive to light, extra-ocular movements are intact; there is normal conjunctiva bilaterally. Neck: The neck is supple, there is no tenderness and ROM intact. Cardiovascular: There is a regular rate and rhythm. No murmur, rub or gallop is appreciated. Respiratory: Respirations are non-labored, breath sounds are equal. Gastrointestinal: Soft, non-distended, non-tender abdomen. Back: There is moderate tenderness to palpation in the midline and paralumbar region. There is no obvious deformity, drainage tube noted Musculoskeletal: ROM limited secondary to pain and stiffness. Neurological: CN 2-12 intact. There are no obvious motor or sensory deficits. Movement and coordination equal and intact. Sensory exam to light touch intact C5-T1 and intact from L2-S1. Reflexes 2/4 in bilateral upper and lower extremities. Negative Hoffmans, babinski, and clonus signs. Assessment: Fall from standing with intractable back pain status post revision T10 through pelvis decompression and fusion with L3 open treatment and stabilization Lumbar spondylosis status post lumbar spinal fusion Hyperlipidemia Obesity with a BMI 31.8 GI prophylaxis DVT prophylaxis Full code Plan: Patient is at his postsurgical revision with orthopedics including pelvis stabilization and reporting severe 10/10 pain. Continue with pain management per orthopedics, adjust accordingly and recommend limiting IV narcotic use PT/OT therapy to evaluate postsurgical and will await. Patient may benefit from ECF for continued PT/OT therapy for strength and mobility Encourage sitting up more frequently and recommend PT/OT therapy daily as patient reports plans on returning home on discharge with family We will continue to follow with orthopedics during hospitalization. Thank you kindly for this consultation. The impression and plan of care has been dictated by Emili Sharpe, Nurse Practitioner as directed. Dr. Olu MD I have performed a history and examination and MDM of this patient, discussed the same with the dictator, and agree with the dictator's assessment and plan as written ,documented as a scribe. Based on total visit time, I have performed more than 50% of the visit. Objective - Vital Signs Vital signs: Vital Signs Temp 98.3 F 02/03/24 07:04 Pulse 91 02/03/24 07:04 Resp 18 02/03/24 07:04 BP 97/59 02/03/24 07:04 Pulse Ox 94 L 02/03/24 07:04 FiO2 Intake & Output 02/02/24 02/03/24 02/03/24 18:59 06:59 18:59 Intake Total 540 Output Total 170 1870 Balance -170 -1330 Intake: Oral 540 Output: Drainage 170 70 Left Lower Posterior Back 170 70 Urine 1800 Other: Voiding Method Indwelling Catheter Indwelling Catheter - Labs CBC & Chem 7: 02/03/24 11:58 02/02/24 03:29 Labs: Abnormal Lab Results - Last 24 Hours (Table) 02/02/24 Range/Units 03:29 Calcium 7.8 L (8.7-10.3) mg/dL Total Bilirubin 0.2 L (0.3-1.2) mg/dL Total Protein 4.2 L (6.2-8.2) g/dL Albumin 2.7 L (3.8-4.9) g/dL Globulin 1.5 L (1.6-3.3) g/dL
[2024-02-04 08:11] LABS: Basophils % (A) 0 %; Eosinophils # (A) 0.3 k/uL (0-0.7); Eosinophils % (A) 4 %; HCT 24.4 % (39.0-53.0); HGB 7.9 gm/dL (13.0-17.5); Hypochromasia Slight; Lymphocytes # (A) 1.8 k/uL (1.0-4.8); Lymphocytes % (A) 25 %; MCH 29.2 pg (25.0-35.0); MCHC 32.5 g/dL (31.0-37.0); MCV 89.9 fL (80.0-100.0); Mean Platelet Volume 8.2; Monocytes # (A) 0.4 k/uL (0-1.0); Monocytes % (A) 6 %; Neutrophils # (A) 4.4 k/uL (1.3-7.7); Neutrophils % (A) 62 %; Platelet Count 250 k/uL (150-450); RBC 2.72 m/uL (4.30-5.90); RDW 15.3 % (11.5-15.5); WBC 7.1 k/uL (3.8-10.6)
[2024-02-04 08:26] LABS: African American GFR (CKD) >90 (>60 ml/min/1.73 sqM); Anion Gap 3 mmol/L; Blood Urea Nitrogen 11 mg/dL (9-20); Calcium 8.2 mg/dL (8.4-10.2); Carbon Dioxide 24 mmol/L (22-30); Chloride 109 mmol/L (98-107); Glucose 97 mg/dL (74-99); Non-African American GFR(CKD) >90 (>60 ml/min/1.73 sqM); Potassium 3.8 mmol/L (3.5-5.1); Sodium 136 mmol/L (137-145)
--- NOTE | 2024-02-04 11:27 | P.OP ---
Date of Procedure: 01/30/24 Preoperative Diagnosis: 1. L3 AO TYPE B2 FRACTURE WITH PEDICULAR EXTENSION AND HARDWARE FAILURE 2. L3 HARDWARE FAILURE S/P FFS, MULTIPLE 3. S/P L3-PELVIS REVISION DECOMPRESSION AND FUSION 4. SEVERE LOW BACK PAIN S/P FALL FROM STANDING, MULTIPLE 5. LE RADICULOPATHY 6. LE WEAKNESS 7. LE PARESTHESIAS 8. NEUROGENIC CLAUDICATION 9. THORACOLUMBAR DEFORMITY DUE TO OLD L1 FRACTURE WITH SUBSEQUENT PROXIMAL JUNCTIONAL FAILURE, KYPHOTIC DEFORMITY AND STENOSIS 10. CHRONIC PAIN, OPOID DEPENDENT 11. CHRONIC CANABINOID AND THC USE 12. ANXIETY DISORDER 13. COMPLEX MEDICAL AND SOCIAL PATIENT Postoperative Diagnosis: 1. L3 AO TYPE B2 FRACTURE WITH PEDICULAR EXTENSION AND HARDWARE FAILURE 2. L3 HARDWARE FAILURE S/P FFS, MULTIPLE 3. S/P L3-PELVIS REVISION DECOMPRESSION AND FUSION 4. SEVERE LOW BACK PAIN S/P FALL FROM STANDING, MULTIPLE 5. LE RADICULOPATHY 6. LE WEAKNESS 7. LE PARESTHESIAS 8. NEUROGENIC CLAUDICATION 9. THORACOLUMBAR DEFORMITY DUE TO OLD L1 FRACTURE WITH SUBSEQUENT PROXIMAL JUNCTIONAL FAILURE, KYPHOTIC DEFORMITY AND STENOSIS 10. CHRONIC PAIN, OPOID DEPENDENT 11. CHRONIC CANABINOID AND THC USE 12. ANXIETY DISORDER 13. COMPLEX MEDICAL AND SOCIAL PATIENT Procedure(s) Performed: 1. T12-L1 INTRADISCAL, 3 COLUMN, OSTEOTOMY FOR DEFORMITY CORRECTION 2. L1-2 INTRADISCAL, 3 COLUMN, OSTEOTOMY FOR DEFORMITY CORRECTION 3. OPEN TREATMENT L3 FRACTURE WITH STABILIZATION 4. L2-3 POSTEROLATERAL AND INTERBODY FUSION 5. T10-L3 POSTEROLATERAL INSTRUMENTED FUSION 6. REVISION L3-PELVIS POSTEROLATERAL INSTRUMENTED FUSION 7. SEGMENTAL INSTRUMENTATION [id number] 8. ATTACHMENT OF THE CAUDAL END OF CONSTRUCT TO THE BONY PELVIS NOT SACRUM 9. T12-L1 BILATERAL LAMINECTOMY , COMPLETE FACETECTOMY AND FORAMINOTOMY FOR COMPLETE NEURAL DECOMPRESSION AND DEFORMITY CORRECTION AND CAGE PLACEMENT 10. L1-2 BILATERAL LAMINECTOMY , COMPLETE FACETECTOMY AND FORAMINOTOMY FOR COMPLETE NEURAL DECOMPRESSION AND DEFORMITY CORRECTION AND CAGE PLACEMENT 11. L2-3 BILATERAL LAMINECTOMY , COMPLETE FACETECTOMY AND FORAMINOTOMY FOR COMP LETE NEURAL DECOMPRESSION AND DEFORMITY CORRECTION AND CAGE PLACEMENT 12. INSERTION OF BIOMECHANICAL DEVICE T12-L1, L1-2, L2-3, CAGES x3 13. USE OF [employer] NAVIGATION FOR THE ASSISTANCE IN ACCURATE SCREW PLACEMENT 14. REMOVAL OF HARDWARE L3 AND L4 DUE TO FRACTURE AND FAILURE. 15. EXPLORATION OF FUSION L3-PELVIS WITH HARDWARE FAILURE L3/4 USE OF IONM ALL SCREWS TESTING > 18 mA MOD22: THIS CASE TOOK 80% LONGER THAN EXPECTED DUE TO COMPLEXITY OF THE CASE, SEVERITY OF THE DEFORMITY AND PATHOLOGY, TECHNICALITY OF THE CASE, PATIENTS COMORBID AND COMPLEX CONDITION WELL BMI >30. Implants: -MATTY EVEREST RODS AND SCREWS -GLOBUS SABLE CAGES x2 -GLOBUS INTRALIFT CAGE x1 -AUTOGRAFT, DBM, ARTHROCELL, ALLOCELL -CONTOUR, MAGNATOS Anesthesia: GETA Surgeon: Hilario Holland Estimated Blood Loss (ml): 600 IV fluids (ml): 2,300 Urine output (ml): 400 Pathology: none sent Condition: stable Disposition: PACU Indications for Procedure: LOKESH MAS is a 53 yo malepresenting for evaluation of Low back pain, LE pain and weakness with radiculopathy, s/p multiple falls with fracture in the lumbar spine and hardware failure. It was my pleasure to have seen and examined LOKESH MAS. In our visit today we have had a chance to go over subjective complaints, physical examination findings and treatments including the natural course history without intervention and various interventional options. The patient's imaging demonstrates the following findings: * L3 PEDICLE FRACTURE B/L WITH B/L PEDICLE SCREW LOOSENING AND FAILURE WITH MIGRATION * FUSION CONSTRUCT FAILURE WITH PJF * OLD L1 FRACTURE WITH SEVERE SEGMENTAL KYPHOSIS CAUSING SAGITTAL IMBALANCE AND COLLAPSE WITH STENOSIS * SEVERE STENOSIS NOTED T12-L2 DUE TO DRAPING AND On a physical exam, LOKESH MAS demonstrates the following findings: * LOW BACK PAIN * LE WEAKNESS AND RADICULOPATHY DESPITE CONSERVATIVE MEASURES BRACING AND MEDS * INABILITY TO AMBULATE * CHRONIC PAIN RELATED TO THIS * PROGRESSIVE PAIN AND NEUROLOGICAL SX WELL PROGRESSIVE CHANGES IN ALIGNMENT RELATED TO FRACTURE I have explained to the patient that as their condition progresses it will cause further neurological deficits and eventual paralysis. Based on the patients imaging, physical exam, and the rapid progression and disabling nature of their symptoms, at this time I recommend surgery in the form of a: REVISION [id number] DECOMPRESSION AND FUSION WITH OPEN TREATMENT L3 FRACTURE, STABILIZATION AND REVISION INSTRUMENTATION. I discussed the risk and benefits of this procedure at length with LOKESH MAS. The patient and significant other agreed to consider pursuing the procedure above mentioned. Prior to surgery, they should follow up with her PCP (Cardio, ID, IM etc) for clearance. Questions were invited and answered, and the patient wishes to proceed as outlined below. Currently, I am recommendin. REVISION [id number] DECOMPRESSION AND FUSION WITH OPEN TREATMENT L3 FRACTURE, STABILIZATION AND REVISION INSTRUMENTATION Description of Procedure: Revision [id number] Decompression and fusion [facility] The patient was seen and examined in the preoperative area. All preoperative protocols were followed. Informed consent was obtained, risks and benefits of the procedure were discussed at length. Risks including bleeding infection damage to the surrounding tissue and risk of reoperation were discussed with the patient. Risk of anesthesia up to and including was discussed with the patient. These are outlined in the risk review. They were willing to accept these risks and all the risks of surgery. The patient was given a weight-based dose of antibiotics in the form of 2 g Ancef. The patient was seen and evaluated by the anesthesia team who deemed them fit for surgery. The site was marked, the patient was willing to proceed with the procedure. The patient was transferred to the operative suite by the Department of anesthesia. They were then drifted off to sleep by the department anesthesia and GETA was performed. The patient tolerated this well. Rosa catheter was placed by nursing staff, a-traumatically. Once confirmation of lines and ventilation the patient was transferred to a prone [facility]os spine table very carefully. The head was secured and stable. All bony prominences including wrists, elbows, axilla, chest, hips, and thighs, and feet were padded very well. Special attention was paid to the genitalia, and these were padded accordingly. SCDs were placed on bilateral lower extremities and were connected. Arms were well padded and placed at 90/90 up and out and well padded. Safety strap and tape placed on the patient. Once in position, again we confirmed good ventilation capabilities and that lines were running appropriately. The patients lumbosacral pelvic was then exposed. Hair was removed for incision. 1010s were placed outlining the incision site. Standard alcohol was used to clean the incision site and allowed to dry. C-arm was used to bio-eulogio the patient and confirm level for incision which was marked with a skin marker. Operative briefing was performed with all teams and everyone in agreement to proceed. The patient was then prepped and draped in a normal sterile fashion. Timeout was then performed, and all parties agreed with the procedure to be performed. Midline skin incision was then made over the previously bookmarked area and dissection taken down to the lumbosacral fascia which was identified and cleaned with a mathews. Once midline was identified, fasciotomy was made over the SP of [id number]. Subperiosteal dissection was then taken down over the lamina and facet joints and TPs were exposed and trough made posterolateral. Previous hardware was identified from L3-Pelvis. Zachary was removed and screws tested. Screws at L3 b/l were loose as well as at L4 which were also removed. There was fracture of L3 and b/l pedicles with screw toggle at this level. Fusion was explored. Once hardware was removed, scar tissue was removed and exposed. TPs were then decorticated L1-S1 and sacral ala with a high speed rissa for posterolateral fusion. Dissection was taken out over the sacrum to the pelvis. SI joint identified and modified Greene starting point for pelvic screws identified as well. Retractors placed. Wound was irrigated and lateral image with penfield 4 placed at the pars of L4 confirmed levels for operation. SP clamp was then placed for the [employer] navigation tracker and secured at L2 for the first set of screws. The wound was then filled with NSS and Z-drape. A 3D Ziehm spin was then obtained and registered. Once confirmation of accuracy screws were then placed from T10-L2 using navigation. Navigated high speed rissa was used to make a master pilot hole followed by a navigated awl-tap passed through the pedicle into the body. A ball tip probe then confirmed within the pedicle. Screws were then measured and placed using a navigated screwdriver. After screws were placed from T10-L2 the tracker was replaced at S1 and a second 3D Ziehm spin was then obtained and registered. Once confirmation of accuracy screws were then placed from L3-4 using [facility] again. AP image confirmed safe placement of screws. The SIJs were then decorticated thoroughly bilaterally using high-speed bur. Screws were then visualized under AP and were safe. Inlet outlet views also confirmed good placement of screws as well as SI screws. Screws were then tested, and reliably tested screws tested above 17 mA. The wound was irrigated and attention was turned to decompression, correction and interbody fusion with deformity correction. Starting at L2-3, bilateral laminectimy complete facetectomy and foraminotomy was done with high speed rissa, kerrison rongure, curette and pituitary. The neural elements were scarred due to previous surgery and the fracture at this level. They were mobilzed and hemostasis achieved. Disc space was identified and neural elements protected. Disc space was accessed under lateral image with osteotome and sequential shaving done until endoplates were devoid of cartilage and there was good bleeding bone. Curettes and srapers uised to removed further tissue and pituitary used to remove disc and cartilage. Disc space was irrigated. Fragments removed. Contour was placed anterior in the disc space along with allograft, and autograft and packed forward. A cage then was selected and placed while protecting neural elements. Cage was placed under lateral image and confirmed midline with AP. The cage was then expanded to meet endplates and good evangelical of lordosis, height and alignment achieved. The cage was torqued. It was then backfilled with DBM. The cage was tested and was stable. Rubber Ball Finisher was removed. Meticulous hemostasis achieved. We then proceeded to the L1-2 level. At L1-2, Bilateral laminectomy, complete facetectomy and foraminotomy was done for completed neural decompression as well as deformity correction. Neural elements were mobilized and protected. Then for deformity correction, intradiscal 3 column osteotomy was done for complete disc removal and mobilization of level. Under lateral image, osteotome was passed into the anterior 1/3 of the L1 and 2 vertebral bodies to remove the disc entirely as well as the posterior aspect of the L1 body for decompression, mobilization and deformity correction. Once done complete discecomty was done using combiation of saroj, pituitary, curettes and osteotomes. Once disc was removed the level was corrected with Oskouian line decorator and this allowed for kyphosis correction. Disc space was irrigated. Good bleeding endplates achieved. Contour, autograft and allograft placed anterior in the disc space and a cage was sized and selected for this level. It was placed while protecting elements and expanded under lateral imaging after AP confirmation of central location. The cage was expanded restoring lordosis, alignment and height at this level. It was locked and was stable. It was backfilled with DBM. The senior investigator was removed. Meticulous hemostasis was done. We then proceeded to the T12-L1 level. At T12-L1 again, bilateral laminectomy, complete facetectomy and foraminotomy was done for complete decompression and mobilization of level for deformity correction. Elements were visualized. They were not retracted. They were protected howevere and a more extracavitary approach to the disc was taken. Disc was identified and hemostasis achieved. under lateral guidence then, extracavitary approach to itradiscal osteotomy, 3 column was taken for complete disc removal, mobilization and deformity correction. Osteotomy was done into the T12 vertebral body anterior 1/3 and removed. Complete disc removal was done then with saroj, pituitary, curettes and kerrisons. Once this was done a temporary zachary was placed due to the instability at the level and the need for further correction. Zachary was secured wich allowed for correction and then under lateral imaging graft was placed anterior in the space with good bleeding endplates. Contour, autograft and allograft was placed. cage was then placed without retracting the conus through more extracavitary approach. The cage was then expanded and met endplates restoring alignment, neutral lordosis/kyphosis at this transitional level and allowed for anterior column stability. the cage was tested and was stable. it was then backfilled with autograft and DBM. The senior investigator was removed and meticulous hemostasis achieved. Temporary zachary removed and alignment maintained. Wound was then copiously irrigated with NSS and Irricept. We then proceeded to Zachary placement and further correction. We then turned our attention to cementing screws in place. Screws were cemented through cannulas at T10, T11, L3 and L4 for further stability, increased pullout strength due to poor bone quality and for L3 stability due to the previous fracture, but need for fixation at this level still. Cementation process was uneventful as it was done under lateral imaging, there were no extravasations and the patient remained stable the entire time. Attention was then drawn to zachary placement and further reduction. Rods were selected, measured, cut and bent to appropriate lordosis. They were then secured into pelvic screws b/l. Sequential reduction then done into each screw and set screw placed. Set screws were then final tightened and lateral image showed good lordosis reduction with increase in LL. All set screws had been placed and final tightened. Rods were secure. All screws were secure. Decompression was confirmed to be wide and well done. Hemostasis was meticulous and the wound was relatively dry. The wound was then irrigated with 2L Irricept, 2L betadine solution followed by 3L Ancef irrigation, 3L gentamicin irrigation and 3L NSS. Surgicel was then placed on the dura, which was inspected and had no injury. Then, in the posterolateral gutter was placed, MagnatOs, Autograft and allograft. This was impacted into position and surgical placed over it. 2g Vanco powder was then placed deep in the wound. A deep, subfascial drain was placed and secured with a stitch. We then proceeded with layered closure. #1 PDS placed in the deep fascia. 0 Vicryl placed in the deep subq, 2-0 placed in the superficial subq and gilmar placed in the skin. The wound edges approximated very well. The wound was then cleaned with ETOH and dressed with optifoam dressing, drain sponges and tegaderms. Drains sewed into position. IONM confirmed no changes. The patient was then transferred off the [facility] spine table to their hospital bed a-traumatically. Drains continued to hold suction. The patient was then extubated and transferred to the PACU in stable condition having tolerated the procedure with no complications.
--- NOTE | 2024-02-04 13:19 | P.PN ---
Subjective Progress Note Date: 02/04/24 Principal diagnosis: L3 FRACTURE WITH PROXIMAL JUNCTIONAL FAILURE, STENOSIS, LE WEAKNESS, SPASM, LOW BACK PAIN Patient was seen at bedside this morning lying in the left lateral recumbent position with present at bedside during encounter. Patient says he just finished working with therapy and walk down the hallway. Patient says he did get increased pain when he changes positions from sitting to standing once he was able to get going the pain was somewhat tolerable. Patient is hoping to shower later today. Patient did note that once he got back in bed after therapy somehow the drain was removed by accident. Patient has urinated several times since/catheter was removed yesterday. Patient denies any other orthopedic complaints at this time. Objective - Vital Signs Vital signs: Vital Signs Temp 98.1 F 02/04/24 07:29 Pulse 87 02/04/24 09:20 Resp 16 02/04/24 09:20 BP 110/72 02/04/24 07:29 Pulse Ox 100 02/04/24 07:29 FiO2 Intake & Output 02/03/24 02/04/24 02/04/24 18:59 06:59 18:59 Other: Voiding Method Indwelling Catheter Toilet Toilet # Voids 1 1 - Exam General: The patient is awake and alert, in no acute distress Skin: Skin is warm and dry with no obvious rashes or lesions. Dressing appears to be clean, dry, intact over thoracolumbar spine. Matthew appear to be well aligned and intact. Negative for any drainage from incision. Very low drainage from drain overnight. Drain was removed by accident from patient this morning. Rest of drain was removed at bedside this morning. Dressing was taken down over drain incision and a dressing was placed here. Maintain dressings clean, dry, intact. Eye: Pupils are equal, round and reactive to light, extra-ocular movements are intact; there is normal conjunctiva bilaterally. Neck: The neck is supple, there is no tenderness and ROM intact. Cardiovascular: There is a regular rate and rhythm. No murmur, rub or gallop is appreciated. Respiratory: Respirations are non-labored, breath sounds are equal. Gastrointestinal: Soft, non-distended, non-tender abdomen. Back: There is moderate tenderness to palpation in the midline and paralumbar region. There is no obvious deformity . Musculoskeletal: ROM limited secondary to pain and stiffness. Right: Shoulder abduction 5/5, elbow flexors 5/5, wrist dorsiflexors 5/5. finger abductor 5/5, tumble tailstock turret lathe operator 5/5, hip flexor 4/5, knee flexor 4/5, ankle dorsiflexor 4/5, ankle plantarflexion 3/5 and extensor hallucis 3/5. Left: Shoulder abduction 5/5, elbow flexors 5/5, wrist dorsiflexors 5/5. finger abductor 5/5, tumble tailstock turret lathe operator 5/5, hip flexor 4/5, knee flexor 4/5, ankle dorsiflexor 4/5, ankle plantarflexion 3/5 and extensor hallucis 3/5. Neurological: CN 2-12 intact. There are no obvious motor or sensory deficits. Movement and coordination equal and intact. Sensory exam to light touch intact C5-T1 and intact from L2-S1. Reflexes 2/4 in bilateral upper and lower extremities. Negative Hoffmans, babinski, and clonus signs. Special test: Straight leg raise; Positive bilateral Psychiatric: Cooperative, appropriate mood & affect, normal judgment. - Labs CBC & Chem 7: 02/04/24 07:01 02/04/24 07:01 Labs: Abnormal Lab Results - Last 24 Hours (Table) 02/03/24 02/03/24 02/04/24 Range/Units 11:58 11:58 07:01 WBC 10.8 H (3.8-10.6) k/uL RBC 3.03 L 2.72 L (4.30-5.90) m/uL Hgb 9.2 L D 7.9 L (13.0-17.5) gm/dL Hct 27.6 L 24.4 L (39.0-53.0) % Neutrophils # 8.9 H (1.3-7.7) k/uL Sodium (137-145) mmol/L Chloride (98-107) mmol/L Calcium (8.4-10.2) mg/dL Crossmatch See Detail 02/04/24 Range/Units 07:01 WBC (3.8-10.6) k/uL RBC (4.30-5.90) m/uL Hgb (13.0-17.5) gm/dL Hct (39.0-53.0) % Neutrophils # (1.3-7.7) k/uL Sodium 136 L (137-145) mmol/L Chloride 109 H (98-107) mmol/L Calcium 8.2 L (8.4-10.2) mg/dL Crossmatch Assessment and Plan Assessment: 1. L3 FRACTURE WITH PROXIMAL JUNCTIONAL FAILURE, STENOSIS, LE WEAKNESS, SPASM, LOW BACK PAIN Postop day 5 status post revision [id number] decompression and fusion with L3 open treatment and stabilization Plan: 1. L3 FRACTURE WITH PROXIMAL JUNCTIONAL FAILURE, STENOSIS, LE WEAKNESS, SPASM, LOW BACK PAIN -surgery performed Tuesday, 4revision [id number] decompression and fusion with L3 open treatment and stabilization. Patient stable at bedside this morning. Drain removed at bedside this morning. Dressing is clean, dry, intact. Okay for patient to shower. Nursing to assess dressings and change as needed. Continue pain medication as needed. Weightbearing as tolerated with walker and assistance as needed. PT/OT daily. Encouraged to perform gentle range of motion exercises while resting in bed. Heart healthy diet. We will continue to follow patient during stay in hospital. Dressing CDI. [place] well aligned and intact. Negative for any active drainage. Discharge likely home Tuesday02/06/2024 2. Appreciate medical management 3. Pain management -Percocet; fentanyl; Toradol 4. DVT prophylaxis -heparin 5. GI prophylaxis -senna; MiraLAX 6. PT/OT -weightbearing as tolerated with walker and assistance as needed 7. Encourage incentive spirometer use 8. Discharge planning - likely home Tuesday02/06/2024 Time with Patient: Less than 30
--- NOTE | 2024-02-05 06:51 | P.PN ---
Subjective Progress Note Date: 02/04/24 53 yo male presents due to low back pain that has been present for 1-2 weeks now. He has had several falls at home and had a fall at home end dec which landed him in the hospital for several days. He was found to have an L3 endplate fracture and at the time it was elected to treat non-op. 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 He has had the above issue for some time, but the L3 fractures with migration are new. I recommended surgery in the office last week and he agreed and was sent up for the next available slot which was FEB 05. He had TLSO brace and was wearing it. He had pain control and was comfortable in the office. He then went to [facility] for a second opinion by a collegue who also recommended surgery for fixation of this fracture and construct. He then went back to [facility] and was admitted through the ED for reasons unknown as the history gets confounded. While there he was there he reports he was told he needed surgery but that the next available slot was not for 6 weeks. He was then subsequently DC and contacted my office yesterday for appointment and recommendations due to another fall at home with increasing pain. --Patient and family had several questions regarding previous surgeries; patient's inability to heal and positive bone density test; patient has addressed this with primary orthopedic surgery and has recommended to follow-up with bone density test with primary care physician Patient scheduled for surgery tomorrow morning; will be n.p.o. at midnight 01/30/2024 Patient is currently n.p.o. and scheduled for surgical intervention with orthopedics Dr. Holland. Will await official report and continue to follow and make adjustments and further recommendations postsurgical. Patient is medically stable for surgical intervention at this time. 02/02/2024 Patient is seen in follow-up today reporting severe 10/10 pain and reports that he is not being woken up to give his pain medications hence the reason why he is in continuous severe pain. Patient reports he is not sleeping very well and feels extremely weak. Awaiting updated PT/OT therapy notes. Orthopedics following and patient continues on fentanyl patch along with Valium, gabapentin, Toradol, Percocets along with IV Dilaudid. Recommend limiting IV narcotic use and encouraged increase activity as tolerated. Hemoglobin was 7.3 with no active bleeding noted and labs have not been drawn in a couple days as recent hemoglobin was 12.4. White count has normalized and patient is afebrile. Will follow-up with repeat labs and recommend a transfusion if hemoglobin is 7 or less. 02/03/2024 Patient is seen in follow-up currently sitting in bed reports he feels exhausted not able to sleep much and continues to report significant pain. Pain medications adjusted and will continue current regimen. Will add sleep aid as needed and recommend monitoring closely as patient is taking multiple pain medications as well. Patient is afebrile with no reports of chest pain or shortness of breath. Patient has been tolerating diet reports not much of an appetite due to pain. Passing gas with no bowel movement as of yet. Continue to encourage incentive spirometer. 02/04/2024 Patient is seen in follow-up today and lethargic but arousable. Patient is receiving multiple medications for pain although continues to report significant pain per nursing staff. Patient denies chest pain, shortness of breath, or palpitations. Recommend attempting to wean from IV narcotics with pain manageme nt per orthopedics. Patient is afebrile with no reported nausea or vomiting and has been tolerating diet. Encourage sitting up more frequently and increased activity as tolerated. Review of systems: Constitutional: reports of fatigue, no fever, or chills Cardiovascular: No reports of chest pain or palpitations Respiratory: No reports of shortness of breath or cough GI: No reports of nausea, vomiting, no reports of diarrhea, reports not having bowel movements and feels slightly constipated although is passing some gas, reports of intermittent nausea at times with not much of an appetite : No reports of dysuria or retention Neurovascular: reports of extreme weakness and continued 10/10 back pain Physical exam: General: The patient is awake and alert, in no acute distress, well-developed, elderly appearing, obese, appears exhausted. Skin: Skin is warm and dry with no obvious rashes or lesions. Eye: Pupils are equal, round and reactive to light, extra-ocular movements are intact; there is normal conjunctiva bilaterally. Neck: The neck is supple, there is no tenderness and ROM intact. Cardiovascular: There is a regular rate and rhythm. No murmur, rub or gallop is appreciated. Respiratory: Respirations are non-labored, breath sounds are equal. Gastrointestinal: Soft, non-distended, non-tender abdomen. Back: There is moderate tenderness to palpation in the midline and paralumbar region. There is no obvious deformity, drainage tube noted Musculoskeletal: ROM limited secondary to pain and stiffness. Neurological: CN 2-12 intact. There are no obvious motor or sensory deficits. Movement and coordination equal and intact. Sensory exam to light touch intact C5-T1 and intact from L2-S1. Reflexes 2/4 in bilateral upper and lower extremities. Assessment: Fall from standing with intractable back pain status post revision T10 through pelvis decompression and fusion with L3 open treatment and stabilization Lumbar spondylosis status post lumbar spinal fusion Hyperlipidemia Obesity with a BMI 31.8 GI prophylaxis DVT prophylaxis Full code Plan: Patient is being monitored postsurgical revision with orthopedics following post pelvis stabilization and reporting continued severe 10/10 pain. Continue with pain management per orthopedics, adjust accordingly and recommend limiting IV narcotic use PT/OT therapy to evaluate postsurgical and will await. Patient may benefit from ECF for continued PT/OT therapy for strength and mobility Encourage sitting up more frequently and recommend PT/OT therapy daily as patient reports plans on returning home on discharge with family Hemoglobin slightly low with no active bleeding noted, recommend follow-up labs to monitor We will continue to follow with orthopedics during hospitalization. Thank you kindly for this consultation. The impression and plan of care has been dictated as a scribe by Emili Sharpe, Nurse Practitioner as directed. Dr. Olu MD I have performed a history and examination and MDM of this patient, discussed the same with the dictator, and agree with the dictator's assessment and plan as written ,documented as a scribe. Based on total visit time, I have performed more than 50% of the visit. Objective - Vital Signs Vital signs: Vital Signs Temp 98.0 F 02/04/24 01:01 Pulse 83 02/04/24 01:01 Resp 18 02/04/24 01:01 BP 120/75 02/04/24 01:01 Pulse Ox 96 02/04/24 01:01 FiO2 Intake & Output 02/03/24 02/04/24 02/04/24 18:59 06:59 18:59 Other: Voiding Method Indwelling Catheter Toilet # Voids 1 - Labs CBC & Chem 7: 02/04/24 07:01 02/04/24 07:01 Labs: Abnormal Lab Results - Last 24 Hours (Table) 02/03/24 02/03/24 02/04/24 Range/Units 11:58 11:58 07:01 WBC 10.8 H (3.8-10.6) k/uL RBC 3.03 L 2.72 L (4.30-5.90) m/uL Hgb 9.2 L D 7.9 L (13.0-17.5) gm/dL Hct 27.6 L 24.4 L (39.0-53.0) % Neutrophils # 8.9 H (1.3-7.7) k/uL Crossmatch See Detail
[2024-02-05] MEDS: SENNOSIDES 8.6 MG TAB PO PRN (12:29)
--- NOTE | 2024-02-05 15:01 | P.PN ---
Subjective Progress Note Date: 02/05/24 53 yo male presents due to low back pain that has been present for 1-2 weeks now. He has had several falls at home and had a fall at home end dec which landed him in the hospital for several days. He was found to have an L3 endplate fracture and at the time it was elected to treat non-op. 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 He has had the above issue for some time, but the L3 fractures with migration are new. I recommended surgery in the office last week and he agreed and was sent up for the next available slot which was FEB 05. He had TLSO brace and was wearing it. He had pain control and was comfortable in the office. He then went to [facility] for a second opinion by a collegue who also recommended surgery for fixation of this fracture and construct. He then went back to [facility] and was admitted through the ED for reasons unknown as the history gets confounded. While there he was there he reports he was told he needed surgery but that the next available slot was not for 6 weeks. He was then subsequently DC and contacted my office yesterday for appointment and recommendations due to another fall at home with increasing pain. --Patient and family had several questions regarding previous surgeries; patient's inability to heal and positive bone density test; patient has addressed this with primary orthopedic surgery and has recommended to follow-up with bone density test with primary care physician Patient scheduled for surgery tomorrow morning; will be n.p.o. at midnight 01/30/2024 Patient is currently n.p.o. and scheduled for surgical intervention with orthopedics Dr. Holland. Will await official report and continue to follow and make adjustments and further recommendations postsurgical. Patient is medically stable for surgical intervention at this time. 02/02/2024 Patient is seen in follow-up today reporting severe 10/10 pain and reports that he is not being woken up to give his pain medications hence the reason why he is in continuous severe pain. Patient reports he is not sleeping very well and feels extremely weak. Awaiting updated PT/OT therapy notes. Orthopedics following and patient continues on fentanyl patch along with Valium, gabapentin, Toradol, Percocets along with IV Dilaudid. Recommend limiting IV narcotic use and encouraged increase activity as tolerated. Hemoglobin was 7.3 with no active bleeding noted and labs have not been drawn in a couple days as recent hemoglobin was 12.4. White count has normalized and patient is afebrile. Will follow-up with repeat labs and recommend a transfusion if hemoglobin is 7 or less. 02/03/2024 Patient is seen in follow-up currently sitting in bed reports he feels exhausted not able to sleep much and continues to report significant pain. Pain medications adjusted and will continue current regimen. Will add sleep aid as needed and recommend monitoring closely as patient is taking multiple pain medications as well. Patient is afebrile with no reports of chest pain or shortness of breath. Patient has been tolerating diet reports not much of an appetite due to pain. Passing gas with no bowel movement as of yet. Continue to encourage incentive spirometer. 02/04/2024 Patient is seen in follow-up today and lethargic but arousable. Patient is receiving multiple medications for pain although continues to report significant pain per nursing staff. Patient denies chest pain, shortness of breath, or palpitations. Recommend attempting to wean from IV narcotics with pain manageme nt per orthopedics. Patient is afebrile with no reported nausea or vomiting and has been tolerating diet. Encourage sitting up more frequently and increased activity as tolerated. 02/05/2024 Patient is seen in follow-up today with no acute overnight issues noted. Discussed with nursing staff and patient regarding IV narcotic use and patient reports is attempting to avoid IV Dilaudid today. Continue other current medications with orthopedics following and planning on possible discharge in 24 hours. Patient has been encouraged to increase activity and get up more frequently with walking and sitting up in the chair. Patient encouraged incentive spirometer use at least 10 times every hour while awake. Patient is denying chest pain or shortness of breath. Review of systems: Constitutional: reports of fatigue, no fever, or chills Cardiovascular: No reports of chest pain or palpitations Respiratory: No reports of shortness of breath or cough GI: No reports of nausea, vomiting, no reports of diarrhea, intermittent nausea at times with not much of an appetite : No reports of dysuria or retention Neurovascular: reports of extreme weakness and continued 10/10 back pain Physical exam: General: The patient is awake and alert, in no acute distress, well-developed, elderly appearing, obese, appears exhausted. Skin: Skin is warm and dry with no obvious rashes or lesions. Eye: Pupils are equal, round and reactive to light, extra-ocular movements are intact; there is normal conjunctiva bilaterally. Neck: The neck is supple, there is no tenderness and ROM intact. Cardiovascular: There is a regular rate and rhythm. No murmur, rub or gallop is appreciated. Respiratory: Respirations are non-labored, breath sounds are equal. Gastrointestinal: Soft, non-distended, non-tender abdomen. Back: There is moderate tenderness to palpation in the midline and paralumbar region. There is no obvious deformity, drainage tube noted Musculoskeletal: ROM limited secondary to pain and stiffness. Neurological: CN 2-12 intact. There are no obvious motor or sensory deficits. Movement and coordination equal and intact. Sensory exam to light touch intact C5-T1 and intact from L2-S1. Reflexes 2/4 in bilateral upper and lower extremities. Assessment: Fall from standing with intractable back pain status post revision T10 through pelvis decompression and fusion with L3 open treatment and stabilization Lumbar spondylosis status post lumbar spinal fusion Hyperlipidemia Obesity with a BMI 31.8 GI prophylaxis DVT prophylaxis Full code Plan: Patient is being monitored postsurgical revision with orthopedics following post pelvis stabilization and reporting some minimal improvements in pain. Attempting to avoid IV Dilaudid today as patient plans on discharging home tomorrow. Continue with pain management per orthopedics, adjust accordingly and recommend limiting IV narcotic use PT/OT therapy to re-evaluate postsurgical and will await. Patient may benefit from ECF for continued PT/OT therapy for strength and mobility. Patient is adamant he is returning home with family Encourage sitting up more frequently and increase activity as tolerated Possible discharge in 24 hours. Patient is medically stable once cleared by orthopedics. We will continue to follow with orthopedics during hospitalization. Thank you kindly for this consultation. The impression and plan of care has been dictated as a scribe by Emili Sharpe, Nurse Practitioner as directed. Dr. Olu MD I have performed a history and examination and MDM of this patient, discussed the same with the dictator, and agree with the dictator's assessment and plan as written ,documented as a scribe. Based on total visit time, I have performed more than 50% of the visit. Objective - Vital Signs Vital signs: Vital Signs Temp 97.9 F 02/05/24 02:43 Pulse 85 02/05/24 02:43 Resp 17 02/05/24 02:43 BP 108/71 02/05/24 02:43 Pulse Ox 96 02/05/24 02:43 FiO2 Intake & Output 02/04/24 02/04/24 02/05/24 06:59 18:59 06:59 Other: Voiding Method Toilet Toilet # Voids 1 1 2 - Labs CBC & Chem 7: 02/04/24 07:01 02/04/24 07:01 Labs: Abnormal Lab Results - Last 24 Hours (Table) 02/03/24 02/04/24 02/04/24 Range/Units 11:58 07:01 07:01 RBC 2.72 L (4.30-5.90) m/uL Hgb 7.9 L (13.0-17.5) gm/dL Hct 24.4 L (39.0-53.0) % Sodium 136 L (137-145) mmol/L Chloride 109 H (98-107) mmol/L Calcium 8.2 L (8.4-10.2) mg/dL Crossmatch See Detail
--- NOTE | 2024-02-06 11:53 | P.PN ---
Subjective Progress Note Date: 02/06/24 Principal diagnosis: L3 FRACTURE WITH PROXIMAL JUNCTIONAL FAILURE, STENOSIS, LE WEAKNESS, SPASM, LOW BACK PAIN Patient was seen at bedside this morning lying in the right lateral recumbent position with present at bedside during encounter. Patient says he was just up to the bathroom. Patient says he did get increased pain when he changes positions from sitting to standing once he was able to get going the pain was somewhat tolerable. Patient is hoping to shower later today. Patient says he has been urinating without issue since Rosa/catheter was removed. Patient has had a bowel movement but is been a couple days and he has not had very much to eat since surgery. Patient is potentially open to going home later today but at this time feels that he may need to stay 1 more night for additional pain control and therapy before going home. Patient denies any other orthopedic complaints at this time. Objective - Vital Signs Vital signs: Vital Signs Temp 97.8 F 02/06/24 07:15 Pulse 78 02/06/24 07:15 Resp 18 02/06/24 07:15 BP 111/76 02/06/24 07:15 Pulse Ox 97 02/06/24 07:15 FiO2 Intake & Output 02/05/24 02/06/24 02/06/24 18:59 06:59 18:59 Intake Total 240 Balance 240 Intake: Oral 240 Other: Voiding Method Toilet Toilet # Voids 2 - Exam General: The patient is awake and alert, in no acute distress Skin: Skin is warm and dry with no obvious rashes or lesions. Dressing appears to be clean, dry, intact over thoracolumbar spine. [place] appear to be well aligned and intact. Negative for any drainage from incision. Dressing appears to be clean, dry, intact at bedside this morning. Maintain dressings clean, dry, intact. Eye: Pupils are equal, round and reactive to light, extra-ocular movements are intact; there is normal conjunctiva bilaterally. Neck: The neck is supple, there is no tenderness and ROM intact. Cardiovascular: There is a regular rate and rhythm. No murmur, rub or gallop is appreciated. Respiratory: Respirations are non-labored, breath sounds are equal. Gastrointestinal: Soft, non-distended, non-tender abdomen. Back: There is moderate tenderness to palpation in the midline and paralumbar region. There is no obvious deformity . Musculoskeletal: ROM limited secondary to pain and stiffness. Right: Shoulder abduction 5/5, elbow flexors 5/5, wrist dorsiflexors 5/5. finger abductor 5/5, butadiene converter operator 5/5, hip flexor 4/5, knee flexor 4/5, ankle dorsiflexor 4/5, ankle plantarflexion 3/5 and extensor halluci s 3/5. Left: Shoulder abduction 5/5, elbow flexors 5/5, wrist dorsiflexors 5/5. finger abductor 5/5, butadiene converter operator 5/5, hip flexor 4/5, knee flexor 4/5, ankle dorsiflexor 4/5, ankle plantarflexion 3/5 and extensor hallucis 3/5. Neurological: CN 2-12 intact. There are no obvious motor or sensory deficits. Movement and coordination equal and intact. Sensory exam to light touch intact C5-T1 and intact from L2-S1. Reflexes 2/4 in bilateral upper and lower extremities. Negative Hoffmans, babinski, and clonus signs. Special test: Straight leg raise; Positive bilateral Psychiatric: Cooperative, appropriate mood & affect, normal judgment. - Labs CBC & Chem 7: 02/04/24 07:01 02/04/24 07:01 Assessment and Plan Assessment: 1. L3 FRACTURE WITH PROXIMAL JUNCTIONAL FAILURE, STENOSIS, LE WEAKNESS, SPASM, LOW BACK PAIN Postop day 7 status post revision [id number] decompression and fusion with L3 op en treatment and stabilization Plan: 1. L3 FRACTURE WITH PROXIMAL JUNCTIONAL FAILURE, STENOSIS, LE WEAKNESS, SPASM, LOW BACK PAIN -surgery performed [id number] decompression and fusion with L3 open treatment and stabilization. Patient stable at bedside this morning. dressing is clean, dry, intact. Okay for patient to shower. Nursing to assess dressings and change as needed. Continue pain medication as needed. Weightbearing as tolerated with walker and assistance as needed. PT/OT daily. Encouraged to perform gentle range of motion exercises while resting in bed. Heart healthy diet. We will continue to follow patient during stay in hospital. [place] well aligned and intact. Negative for any active drainage. Discharge home today versus tomorrow 2. Appreciate medical management 3. Pain management -Percocet; fentanyl; Toradol 4. DVT prophylaxis -heparin 5. GI prophylaxis -senna; MiraLAX 6. PT/OT -weightbearing as tolerated with walker and assistance as needed 7. Encourage incentive spirometer use 8. Discharge planning -discharge home today versus tomorrow Time with Patient: Less than 30
--- NOTE | 2024-02-06 14:01 | P.DS ---
Providers Date of admission: 01/30/24 08:44 Expected date of discharge: 02/06/24 Attending physician: Hilario Holland DO Consults: 01/26/24 16:24 Consult Physician Urgent Consulting Provider: Salma Raines Reason/Comments: intractable back pain Do you want consulting provider notified?: Already Contacted Primary care physician: [facility] Course: Date of admission: 01/29/2024 Date of discharge: 02/06/2024 Admission diagnosis: L3 FRACTURE WITH PROXIMAL JUNCTIONAL FAILURE, STENOSIS, LE WEAKNESS, SPASM, LOW BACK PAIN Discharge diagnosis: Same Attending physician: Dr. Holland Surgical procedures: Revision [id number] decompression and fusion with L3 open treatment and stabilization Brief history: Patient is a 53-year-old male with a history of L3 fracture with proximal junctional failure, stenosis, lower extremity weakness, low back pain. At this point patient has failed conservative treatment measures and has opted to proceed with a elective revision [id number] decompression and fusion with L3 open treatment and stabilization. Hospital course: Details of patient's surgery can be found in operative report. Patient tolerated the procedure well and was subsequently transported to orthopedic floor. Patient's orthopeidc and medical care was provided daily. Patient had daily laboratory tests performed for evaluation of overall blood counts. Patient had daily physical therapy to include strengthening range of motion as well as education with walker ambulation. Patient was treated with heparin for their postoperative DVT prophylaxis during their inpatient stay. Patient was noted to have a relatively uneventful postoperative course. Patient reported satisfactory pain control with oral pain medications by postoperative day 7. Patient showed satisfactory progress with physical therapy. Patient moved steadily through the program and had no difficulty meeting the goals by postoperative day 7. Given patient's otherwise satisfactory course and having met physical therapy goals, plan is to discharge patient home on postoperative day 7. Discharge condition/disposition: Patient will be discharged home in stable condition. Discharge medications: Instructions are given on resumption of patient's normal daily medications per primary care recommendation, in addition patient will be prescribed gabapentin; Percocet; senna; Duricef. Spine Discharge and Recovery Instructions Date of Surgery: 01/30/2024 Diagnosis: L3 FRACTURE WITH PROXIMAL JUNCTIONAL FAILURE, STENOSIS, LE WEAKNESS, SPASM, LOW BACK PAIN Procedure: Revision [id number] decompression and fusion with L3 open treatment and stabilization Medications: See medication list All medication refills should be obtained through your primary care doctor or your clinic spine surgeon. Please discuss prescription refills at your follow up appointment. Do not call the hospital for medication refills. Dressing: Leave your dressing in place for a total of 5 days post operatively. Then you may remove your dressing and leave open to air. Keep the area clean and if not able to keep area clean, then cover with sterile gauze and tape. Showering: You may shower 3 days after your procedure allowing soap and water to run over incision. Do not scrub. Do not soak. Blot dry. Follow up: Please confirm a follow up appointment with your surgeon 3 weeks post operatively. Please make an appointment to follow up with your PCP in 1-2 weeks after surgery for evaluation '3 phase, 3-week plan' POST OP WEEKS 1-3 1. Lifting/carrying/pushing/pulling limited to less than 5 pounds. 2. Do not sit for longer than 15 minutes at one time. Get up and walk around. Prolonged sitting is NOT advised. If you lay down, see if you can tolerate laying down on you front (belly side) 3. Walk for periods of 15 minutes = 1 mile but no longer; do it multiple times times each day. 4. Ice your low back after activity. POST OP WEEKS 3-6 1. Lifting limited to less than 20 pounds. 2. Do not sit for longer than 30 minutes at a time. Frequently change positions. Use a sit-to stand workstation or take frequent breaks from sitting if you have returned to work. 3. Walk for 30 minutes each day. If possible, do these three or more times a day POST OP WEEKS 6+ At your 6-week appointment we will give you a physical therapy referral to focus on a core stabilization and strengthening program. You should also work on leg & buttock strengthening, hamstring & quadriceps stretching, and continue a low impact aerobic activity program such as swimming, walking, or riding a stationary bicycle. During the initial 6 weeks after your surgery, you are at the highest risk of re-injuring your spine. You should generally avoid BLT's (bending, lifting and twisting combination motions) and follow the above guidelines to reduce the chance of reinjury. You can anticipate post op appointments in our office at approximately 3 weeks and 6 weeks after your surgery. INCISION CARE: If your incision is not draining you do NOT need to cover it with a dressing. Keep your incision clean, dry and intact. In most cases, we apply skin glue, gilmar or sutures to the incision at the time of surgery. This will be like a crust or have the appearance of a scab and will fall off in time on its own. The stitches or gilmar need to be removed at 3 weeks post op appointment. You may begin to shower 3 days after surgery (this allows the glue to modi well). However, please avoid scrubbing the incision site or peeling off any of the skin glue. This will ensure optimal healing of your incision. Also, during this time avoid soaking the incision area in water - this includes swimming pools, hot tubs or baths. No ointments, lotions or oils on the incision until your surgeon allows. Leave gilmar, sutures or glue in place. Neurological dysfunction that comes on suddenly can also be a sign of a stroke. Below some common symptoms of a stroke are listed: B - balance difficulty such as sudden onset walking or leaning to one side - NEW E - eye problem such as sudden double vision or trouble seeing on one side - NEW F - Facial weakness or numbness on one side - NEW A - Arm or leg weakness or numbness on one side - NEW S - Slurred speech or difficulty with word finding - NEW T - Time is BRAIN! Call 911 as soon as you recognize these symptoms Diet: Consume a regular diet rich in vegetables and lean protein such as chicken or fish. You should consume in a ratio of approximately 20% fats|40% carbohydrates|40%protein. Vegetables, sweet potatoes, brown rice or quinoa are examples of good carbohydrates. Chips, white bread, cookies and sweets/sugar are examples of bad carbohydrates. Limit your bad carbs, go wild with good carbs. "Life's Simple 7" Guidelines as per [place] [employer] These will help you reclaim your life after surgery and counter help in your recovery, keeping in mind your restrictions. (1) Get Active. Physical activity can help people lose weight, control high blood pressure and cholesterol, feel emotionally better, and sleep better. (2) Control Cholesterol. Avoid a diet high in saturated fat, trans fat, & cholesterol. Limit whole milk & cream, ice cream, butter, egg yolks, processed meats (like sausage and hot dogs), and fatty meats. Choose healthy foods that are low in saturated fat, trans fat and cholesterol which include: Fruits and vegetables, fiber rich grain products (like whole grain pasta and brown rice), lean meat such as chicken, fish, nuts, seeds, and legumes. (3) Eat Better. Eat small portions. Shop at the grocery with a list and do not stray from it. Tips for a healthy diet include: Limit sodium intake to less than 1500mg daily, avoid prepackaged, processed, and fast foods, choose a diet rich in fruits, vegetables, and whole grain, high fiber foods, and limit saturated & cholesterol in your diet. (4) Manage Blood Pressure. If you have high blood pressure, you should have a cuff at home so that you can check your blood pressure regularly. Be sure you have a good cuff. An arm one is generally better than a wrist one. Bring the cuff to a doctor's appointment to validate that the measurements that your cuff are taking are accurate. Take your blood pressure twice daily when you are sitting down and relaxing. Record the numbers in a log and bring this log with you to your doctors' appointments. (5) Lose Weight if your BMI is above 25. A healthy BMI is between 19-25. To calculate Your BMI, you may use a Standard BMI Calculator on the NIH BMI website: <www.nhlbi.nih.gov/guidelines/obesity/BMI/bmicalc.htm>. Weigh oneself daily. If you are overweight, set a goal to lose weight. A pound a week loss if needed is a good target. (6) Reduce Blood Sugar. Limit foods and liquids with "added sugars." (Added sugars include sucrose, fructose, glucose, maltose, dextrose, high fructose corn syrup, corn syrup, concentrated fruit juice and honey). (7) Stop Smoking. If you smoke, quitting smoking is one of the best things that you can do for your health. Smoking increases your risk of heart attack, stroke, and peripheral vascular disease, which is a build-up of plaque in your arteries. Please discard all the cigarettes and lighters in your house. Have a plan for what you will do when you have the urge to smoke. Direct and second- hand smoke shortens your life as well as the lives of your family, friends and others around you. For your health and the health of those around you, please consider quitting! Proper Bending Body Mechanics: Maintain a wide stance with one foot slightly in front of the other. Keep your back straight. Bend utilizing the strength in your hips and knees. Do not bend at the waist. Maintain the lifted object at your waist-level close to your body. Avoid lifting weight that causes immediately pain or pain anywhere in the body afterwards. Smoking/Nicotine If there was ever one thing that you could do to increase your overall health, decrease your risk of cardiovascular problems by about 39% the second you make the choice, it is to STOP SMOKING. Your body's most instant gratification is the second you stop smoking. We have all heard the studies, read the articles but it is true, smoking is extremely bad for your overall health, and moreover it is detrimental to your bone health. Nicotine, IN ANY FORM, kills bone cells, prevents your body from healing fractures, and significantly prolongs healing after surgery. In spine surgery specifically, it increases your risk of not healing your bones to create a fusion and increases your risk of having a revision surgery due to this up to 60%. I know it is hard. I know it feels impossible. But there are ways. Take control of your life. We are here to help you through it. And when you are ready, ask us and we can direct you to help if you desire. Use the START Plan to Quit Smoking (please visit the Helpguide.org website listed below for more information): S = Set a quit date. Choose a date within the next 2 weeks, so you have enough time to prepare without losing your motivation to quit. If you mainly smoke at work, quit on the weekend, so you have a few days to adjust to the change. T = Tell family, friends, and co-workers that you plan to quit. Let your friends and family in on your plan to quit smoking and tell them you need their support and encouragement to stop. Look for a quit stanton who wants to stop smoking as well. You can help each other get through the rough times. A = Anticipate and plan for the challenges you'll face while quitting. Most people who begin smoking again do so within the first 3 months. You can help yourself make it through by preparing ahead for common challenges, such as nicotine withdrawal and cigarette cravings. R = Remove cigarettes and other tobacco products from your home, car, and work. Throw away all your cigarettes (no emergency pack!), lighters, ashtrays, and matches. Wash your clothes and freshen up anything that smells like smoke. Shampoo your car, clean your drapes and carpet, and steam your furniture. T = Talk to your doctor about getting help to quit. Your doctor can prescribe medication to help with withdrawal and suggest other alternatives. If you can't see a doctor, you can get many products over the counter at your local pharmacy or grocery store, including the nicotine patch, nicotine lozenges, and nicotine gum. Resources for Quitting Smoking: <https ://www.[place].gov/documents/[facility]/Quit_Tobacco_Resources_for_patients_313480_7. pdf> Supplementation: Take recommended dosages of Vitamin D and Calcium to help fortify your bones and help them to heal. See your health maintenance packet for dosages and recommended levels. DVT/VTE prophylaxis: You will be given compression stockings from the hospital. Wear these daily for the first two weeks after surgery. You may take them off at night. You may be prescribed a medication to help thin your blood. Take this as directed. If you are not prescribed this medication, early and frequent ambulation has been shown to be the best prophylaxis to deep vein thrombosis and sequelae related to this event. Assessment: L3 FRACTURE WITH PROXIMAL JUNCTIONAL FAILURE, STENOSIS, LE WEAKNESS, SPASM, LOW BACK PAIN Procedures: revision [id number] decompression and fusion with L3 open treatment and stabilization Patient Condition at Discharge: Stable Plan - Discharge Summary Discharge Rx Participant: No New Discharge Prescriptions: New oxyCODONE-APAP 10-325MG [Percocet 10-325 mg] 1 tab PO Q6HR PRN #24 tab PRN Reason: Pain Sennosides/Docusate Sodium [Senna Plus 8.6-50 mg Softgel] 1 each PO DAILY #20 capsule cefaDROXiL [Duricef] 500 mg PO Q12HR 5 Days #10 cap Gabapentin 800 mg PO TID #30 tab No Action SUMAtriptan succinate [Imitrex] 50 mg PO DAILY PRN PRN Reason: Migraine Headache Pantoprazole Sodium [Protonix] 40 mg PO DAILY Fenofibrate [Lofibra] 160 mg PO DAILY Gabapentin 600 mg PO TID@0000,0800,1600 Pregabalin [Lyrica] 150 mg PO BID@1000,2200 oxyCODONE-APAP 10-325MG [Percocet 10-325 mg] 1 tab PO Q6HR PRN #28 tab PRN Reason: Pain methocarbamoL [Robaxin-750] 750 mg PO Q6H PRN PRN Reason: Muscle Spasm Terbinafine [LamISIL] 250 mg PO DAILY Discharge Medication List SUMAtriptan succinate [Imitrex] 50 mg PO DAILY PRN 12/12/17 [History] Pantoprazole Sodium [Protonix] 40 mg PO DAILY 04/16/21 [History] Fenofibrate [Lofibra] 160 mg PO DAILY 02/01/23 [History] Gabapentin 600 mg PO TID@0000,0800,1600 10/14/23 [History] Pregabalin [Lyrica] 150 mg PO BID@1000,2200 11/07/23 [History] oxyCODONE-APAP 10-325MG [Percocet 10-325 mg] 1 tab PO Q6HR PRN #28 tab 11/11/23 [Rx] methocarbamoL [Robaxin-750] 750 mg PO Q6H PRN 01/26/24 [History] Terbinafine [LamISIL] 250 mg PO DAILY 01/28/24 [History] Gabapentin 800 mg PO TID #30 tab 02/06/24 [Rx] Sennosides/Docusate Sodium [Senna Plus 8.6-50 mg Softgel] 1 each PO DAILY #20 capsule 02/06/24 [Rx] cefaDROXiL [Duricef] 500 mg PO Q12HR 5 Days #10 cap 02/06/24 [Rx] oxyCODONE-APAP 10-325MG [Percocet 10-325 mg] 1 tab PO Q6HR PRN #24 tab 02/06/24 [Rx] Follow up Appointment(s)/Referral(s): [facility], [NON-STAFF] - As Needed Reginald Wesley DO [Primary Care Provider] - 1-2 days Hilario Holland DO [Doctor of Osteopathic Medicine] - 2 Weeks Activity/Diet/Wound Care/Special Instructions: Spine Discharge and Recovery Instructions Date of Surgery: 01/30/2024 Diagnosis: L3 FRACTURE WITH PROXIMAL JUNCTIONAL FAILURE, STENOSIS, LE WEAKNESS, SPASM, LOW BACK PAIN Procedure: Revision [id number] decompression and fusion with L3 open treatment and stabilization Medications: See medication list All medication refills should be obtained through your primary care doctor or your clinic spine surgeon. Please discuss prescription refills at your follow up appointment. Do not call the hospital for medication refills. Dressing: Leave your dressing in place for a total of 5 days post operatively. Then you may remove your dressing and leave open to air. Keep the area clean and if not able to keep area clean, then cover with sterile gauze and tape. Showering: You may shower 3 days after your procedure allowing soap and water to run over incision. Do not scrub. Do not soak. Blot dry. Follow up: Please confirm a follow up appointment with your surgeon 3 weeks post operatively. Please make an appointment to follow up with your PCP in 1-2 weeks after surgery for evaluation '3 phase, 3-week plan' POST OP WEEKS 1-3 1. Lifting/carrying/pushing/pulling limited to less than 5 pounds. 2. Do not sit for longer than 15 minutes at one time. Get up and walk around. Prolonged sitting is NOT advised. If you lay down, see if you can tolerate laying down on you front (belly side) 3. Walk for periods of 15 minutes = 1 mile but no longer; do it multiple times times each day. 4. Ice your low back after activity. POST OP WEEKS 3-6 1. Lifting limited to less than 20 pounds. 2. Do not sit for longer than 30 minutes at a time. Frequently change positions. Use a sit-to stand workstation or take frequent breaks from sitting if you have returned to work. 3. Walk for 30 minutes each day. If possible, do these three or more times a day POST OP WEEKS 6+ At your 6-week appointment we will give you a physical therapy referral to focus on a core stabilization and strengthening program. You should also work on leg & buttock strengthening, hamstring & quadriceps stretching, and continue a low impact aerobic activity program such as swimming, walking, or riding a stationary bicycle. During the initial 6 weeks after your surgery, you are at the highest risk of re-injuring your spine. You should generally avoid BLT's (bending, lifting and twisting combination motions) and follow the above guidelines to reduce the chance of reinjury. You can anticipate post op appointments in our office at approximately 3 weeks and 6 weeks after your surgery. INCISION CARE: If your incision is not draining you do NOT need to cover it with a dressing. Keep your incision clean, dry and intact. In most cases, we apply skin glue, gilmar or sutures to the incision at the time of surgery. This will be like a crust or have the appearance of a scab and will fall off in time on its own. The stitches or gilmar need to be removed at 3 weeks post op appointment. You may begin to shower 3 days after surgery (this allows the glue to modi well). However, please avoid scrubbing the incision site or peeling off any of the skin glue. This will ensure optimal healing of your incision. Also, during this time avoid soaking the incision area in water - this includes swimming pools, hot tubs or baths. No ointments, lotions or oils on the incision until your surgeon allows. Leave gilmar, sutures or glue in place. Neurological dysfunction that comes on suddenly can also be a sign of a stroke. Below some common symptoms of a stroke are listed: B - balance difficulty such as sudden onset walking or leaning to one side - NEW E - eye problem such as sudden double vision or trouble seeing on one side - NEW F - Facial weakness or numbness on one side - NEW A - Arm or leg weakness or numbness on one side - NEW S - Slurred speech or difficulty with word finding - NEW T - Time is BRAIN! Call 911 as soon as you recognize these symptoms Diet: Consume a regular diet rich in vegetables and lean protein such as chicken or fish. You should consume in a ratio of approximately 20% fats|40% carbohydrates|40%protein. Vegetables, sweet potatoes, brown rice or quinoa are examples of good carbohydrates. Chips, white bread, cookies and sweets/sugar are examples of bad carbohydrates. Limit your bad carbs, go wild with good carbs. "Life's Simple 7" Guidelines as per [place] [employer] These will help you reclaim your life after surgery and counter help in your recovery, keeping in mind your restrictions. (1) Get Active. Physical activity can help people lose weight, control high blood pressure and cholesterol, feel emotionally better, and sleep better. (2) Control Cholesterol. Avoid a diet high in saturated fat, trans fat, & cholesterol. Limit whole milk & cream, ice cream, butter, egg yolks, processed meats (like sausage and hot dogs), and fatty meats. Choose healthy foods that are low in saturated fat, trans fat and cholesterol which include: Fruits and vegetables, fiber rich grain products (like whole grain pasta and brown rice), lean meat such as chicken, fish, nuts, seeds, and legumes. (3) Eat Better. Eat small portions. Shop at the grocery with a list and do not stray from it. Tips for a healthy diet include: Limit sodium intake to less than 1500mg daily, avoid prepackaged, processed, and fast foods, choose a diet rich in fruits, vegetables, and whole grain, high fiber foods, and limit saturated & cholesterol in your diet. (4) Manage Blood Pressure. If you have high blood pressure, you should have a cuff at home so that you can check your blood pressure regularly. Be sure you have a good cuff. An arm one is generally better than a wrist one. Bring the cuff to a doctor's appointment to validate that the measurements that your cuff are taking are accurate. Take your blood pressure twice daily when you are sitting down and relaxing. Record the numbers in a log and bring this log with you to your doctors' appointments. (5) Lose Weight if your BMI is above 25. A healthy BMI is between 19-25. To calculate Your BMI, you may use a Standard BMI Calculator on the NIH BMI website: <www.nhlbi.nih.gov/guidelines/obesity/BMI/bmicalc.htm>. Weigh oneself daily. If you are overweight, set a goal to lose weight. A pound a week loss if needed is a good target. (6) Reduce Blood Sugar. Limit foods and liquids with "added sugars." (Added sugars include sucrose, fructose, glucose, maltose, dextrose, high fructose corn syrup, corn syrup, concentrated fruit juice and honey). (7) Stop Smoking. If you smoke, quitting smoking is one of the best things that you can do for your health. Smoking increases your risk of heart attack, stroke, and peripheral vascular disease, which is a build-up of plaque in your arteries. Please discard all the cigarettes and lighters in your house. Have a plan for what you will do when you have the urge to smoke. Direct and second- hand smoke shortens your life as well as the lives of your family, friends and others around you. For your health and the health of those around you, please consider quitting! Proper Bending Body Mechanics: Maintain a wide stance with one foot slightly in front of the other. Keep your back straight. Bend utilizing the strength in your hips and knees. Do not bend at the waist. Maintain the lifted object at your waist-level close to your body. Avoid lifting weight that causes immediately pain or pain anywhere in the body afterwards. Smoking/Nicotine If there was ever one thing that you could do to increase your overall health, decrease your risk of cardiovascular problems by about 39% the second you make the choice, it is to STOP SMOKING. Your body's most instant gratification is the second you stop smoking. We have all heard the studies, read the articles but it is true, smoking is extremely bad for your overall health, and moreover it is detrimental to your bone health. Nicotine, IN ANY FORM, kills bone cells, prevents your body from healing fractures, and significantly prolongs healing after surgery. In spine surgery specifically, it increases your risk of not healing your bones to create a fusion and increases your risk of having a revision surgery due to this up to 60%. I know it is hard. I know it feels impossible. But there are ways. Take control of your life. We are here to help you through it. And when you are ready, ask us and we can direct you to help if you desire. Use the START Plan to Quit Smoking (please visit the Helpguide.org website listed below for more information): S = Set a quit date. Choose a date within the next 2 weeks, so you have enough time to prepare without losing your motivation to quit. If you mainly smoke at work, quit on the weekend, so you have a few days to adjust to the change. T = Tell family, friends, and co-workers that you plan to quit. Let your friends and family in on your plan to quit smoking and tell them you need their support and encouragement to stop. Look for a quit stanton who wants to stop smoking as well. You can help each other get through the rough times. A = Anticipate and plan for the challenges you'll face while quitting. Most people who begin smoking again do so within the first 3 months. You can help yourself make it through by preparing ahead for common challenges, such as nicotine withdrawal and cigarette cravings. R = Remove cigarettes and other tobacco products from your home, car, and work. Throw away all your cigarettes (no emergency pack!), lighters, ashtrays, and matches. Wash your clothes and freshen up anything that smells like smoke. Shampoo your car, clean your drapes and carpet, and steam your furniture. T = Talk to your doctor about getting help to quit. Your doctor can prescribe medication to help with withdrawal and suggest other alternatives. If you can't see a doctor, you can get many products over the coun ter at your local pharmacy or grocery store, including the nicotine patch, nicotine lozenges, and nicotine gum. Resources for Quitting Smoking: <https://www.[place].gov/documents/[facility]/Quit_Tob acco_Resources_for_patients_313480_7.pdf> Supplementation: Take recommended dosages of Vitamin D and Calcium to help fortify your bones and help them to heal. See your health maintenance packet for dosages and recommended levels. DVT/VTE prophylaxis: You will be given compression stockings from the hospital. Wear these daily for the first two weeks after surgery. You may take them off at night. You may be prescribed a medication to help thin your blood. Take this as directed. If you are not prescribed this medication, early and frequent ambulation has been shown to be the best prophylaxis to deep vein thrombosis and sequelae related to this event. Discharge Disposition: HOME SELF-CARE
[2024-02-06 14:44] VITALS: BMI 31.7
--- NOTE | 2024-02-06 23:20 | P.PN ---
Subjective Progress Note Date: 02/06/24 53 yo male presents due to low back pain that has been present for 1-2 weeks now. He has had several falls at home and had a fall at home end dec which landed him in the hospital for several days. He was found to have an L3 endplate fracture and at the time it was elected to treat non-op. 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 He has had the above issue for some time, but the L3 fractures with migration are new. I recommended surgery in the office last week and he agreed and was sent up for the next available slot which was FEB 05. He had TLSO brace and was wearing it. He had pain control and was comfortable in the office. He then went to [facility] for a second opinion by a collegue who also recommended surgery for fixation of this fracture and construct. He then went back to [facility] and was admitted through the ED for reasons unknown as the history gets confounded. While there he was there he reports he was told he needed surgery but that the next available slot was not for 6 weeks. He was then subsequently DC and contacted my office yesterday for appointment and recommendations due to another fall at home with increasing pain. --Patient and family had several questions regarding previous surgeries; patient's inability to heal and positive bone density test; patient has addressed this with primary orthopedic surgery and has recommended to follow-up with bone density test with primary care physician Patient scheduled for surgery tomorrow morning; will be n.p.o. at midnight 01/30/2024 Patient is currently n.p.o. and scheduled for surgical intervention with orthopedics Dr. Holland. Will await official report and continue to follow and make adjustments and further recommendations postsurgical. Patient is medically stable for surgical intervention at this time. 02/02/2024 Patient is seen in follow-up today reporting severe 10/10 pain and reports that he is not being woken up to give his pain medications hence the reason why he is in continuous severe pain. Patient reports he is not sleeping very well and feels extremely weak. Awaiting updated PT/OT therapy notes. Orthopedics following and patient continues on fentanyl patch along with Valium, gabapentin, Toradol, Percocets along with IV Dilaudid. Recommend limiting IV narcotic use and encouraged increase activity as tolerated. Hemoglobin was 7.3 with no active bleeding noted and labs have not been drawn in a couple days as recent hemoglobin was 12.4. White count has normalized and patient is afebrile. Will follow-up with repeat labs and recommend a transfusion if hemoglobin is 7 or less. 02/03/2024 Patient is seen in follow-up currently sitting in bed reports he feels exhausted not able to sleep much and continues to report significant pain. Pain medications adjusted and will continue current regimen. Will add sleep aid as needed and recommend monitoring closely as patient is taking multiple pain medications as well. Patient is afebrile with no reports of chest pain or shortness of breath. Patient has been tolerating diet reports not much of an appetite due to pain. Passing gas with no bowel movement as of yet. Continue to encourage incentive spirometer. 02/04/2024 Patient is seen in follow-up today and lethargic but arousable. Patient is receiving multiple medications for pain although continues to report significant pain per nursing staff. Patient denies chest pain, shortness of breath, or palpitations. Recommend attempting to wean from IV narcotics with pain manageme nt per orthopedics. Patient is afebrile with no reported nausea or vomiting and has been tolerating diet. Encourage sitting up more frequently and increased activity as tolerated. 02/05/2024 Patient is seen in follow-up today with no acute overnight issues noted. Discussed with nursing staff and patient regarding IV narcotic use and patient reports is attempting to avoid IV Dilaudid today. Continue other current medications with orthopedics following and planning on possible discharge in 24 hours. Patient has been encouraged to increase activity and get up more frequently with walking and sitting up in the chair. Patient encouraged incentive spirometer use at least 10 times every hour while awake. Patient is denying chest pain or shortness of breath. 02/06/2024 Patient is seen in follow-up today continues to report pain and is considering discharge later today if able to tolerate more diet and increased activity. Patient reports not eating much and concerned with pain management and would like to go home tomorrow. Patient is medically stable once cleared by orthopedics. Patient has been instructed to get up more frequently and work with physical therapy including getting up into the chair more often. Patient is afebrile with no reports of chest pain or shortness of breath. No reported nausea or vomiting although not much of an appetite. Review of systems: Constitutional: reports of fatigue, no fever, or chills Cardiovascular: No reports of chest pain or palpitations Respiratory: No reports of shortness of breath or cough GI: No reports of nausea, vomiting, no reports of diarrhea, intermittent nausea at times with not much of an appetite : No reports of dysuria or retention Neurovascular: reports of extreme weakness and continued 10/10 back pain Physical exam: General: The patient is awake and alert, in no acute distress, well-developed, elderly appearing, obese, unkempt Skin: Skin is warm and dry with no obvious rashes or lesions. Eye: Pupils are equal, round and reactive to light, extra-ocular movements are intact; there is normal conjunctiva bilaterally. Neck: The neck is supple, there is no tenderness and ROM intact. Cardiovascular: There is a regular rate and rhythm. No murmur, rub or gallop is appreciated. Respiratory: Respirations are non-labored, breath sounds are equal. Gastrointestinal: Soft, non-distended, non-tender abdomen. Back: There is moderate tenderness to palpation in the midline and paralumbar region. There is no obvious deformity Musculoskeletal: ROM limited secondary to pain and stiffness. Neurological: CN 2-12 intact. There are no obvious motor or sensory deficits. Movement and coordination equal and intact. Sensory exam to light touch intact C5-T1 and intact from L2-S1. Reflexes 2/4 in bilateral upper and lower extremities. Assessment: Fall from standing with intractable back pain status post revision T10 through pelvis decompression and fusion with L3 open treatment and stabilization Lumbar spondylosis status post lumbar spinal fusion Hyperlipidemia Obesity with a BMI 31.8 GI prophylaxis DVT prophylaxis Full code Plan: Patient is being monitored status post surgical revision with orthopedics following as well as pelvis stabilization and reporting some minimal improvements in pain. Attempting to avoid IV Dilaudid today as patient plans on discharging home tomorrow. Patient fearful and concerned with pain management that will be uncontrolled at home Continue with pain management per orthopedics, adjust accordingly and recommend limiting IV narcotic use PT/OT therapy to work with the patient today. Patient is adamant he is going home with family and possibly tomorrow Encourage sitting up more frequently and increase activity as tolerated Possible discharge in 24 hours. Patient is medically stable once cleared by orthopedics. We will continue to follow with orthopedics during hospitalization. Thank you kindly for this consultation. The impression and plan of care has been dictated as a scribe by Emili Sharpe, Nurse Practitioner as directed. Dr. Olu MD I have performed a history and examination and MDM of this patient, discussed the same with the dictator, and agree with the dictator's assessment and plan as written ,documented as a scribe. Based on total visit time, I have performed more than 50% of the visit. Objective - Vital Signs Vital signs: Vital Signs Temp 98.3 F 02/06/24 19:35 Pulse 91 02/06/24 19:35 Resp 19 02/06/24 19:35 BP 93/59 02/06/24 19:35 Pulse Ox 97 02/06/24 19:35 FiO2 Intake & Output 02/06/24 02/06/24 02/07/24 06:59 18:59 06:59 Intake Total 240 Balance 240 Weight 83.915 kg Intake: Oral 240 Other: Voiding Method Toilet Toilet Toilet # Voids 2 - Labs CBC & Chem 7: 02/04/24 07:01 02/04/24 07:01
[2024-02-07 01:12] VITALS: RESP 16; TEMP 98.2
[2024-02-07 07:43] VITALS: BP 96/62; PULSE 83
[2024-02-07] MEDS: SUMAtriptan succinate 50 MG TAB PO PRN (08:50)
== END 2024-02-07 14:06 | disposition home or self-care (01) | DRG 427 ==
LOC: EC 12:08 → 6NMEDSUR 16:25 → 4SSUR 01-29 23:46 → OBSVTOIN 01-30 08:44
PROVIDERS: ADMIT Orthopaedic Surgery; ATTEND Orthopaedic Surgery
PROC: 0RG7071 Fusion of 2 to 7 Thoracic Vertebral Joints with Autologous Tissue Substitute, Posterior Approach, Posterior Column, Open Approach (ICD-10-PCS; 2024-01-30)
PROC: 0SG1071 Fusion of 2 or more Lumbar Vertebral Joints with Autologous Tissue Substitute, Posterior Approach, Posterior Column, Open Approach (ICD-10-PCS; 2024-01-30)
PROC: 0RG70AJ Fusion of 2 to 7 Thoracic Vertebral Joints with Interbody Fusion Device, Posterior Approach, Anterior Column, Open Approach (ICD-10-PCS; 2024-01-30)
PROC: 0RGA0AJ Fusion of Thoracolumbar Vertebral Joint with Interbody Fusion Device, Posterior Approach, Anterior Column, Open Approach (ICD-10-PCS; 2024-01-30)
PROC: 0RGA071 Fusion of Thoracolumbar Vertebral Joint with Autologous Tissue Substitute, Posterior Approach, Posterior Column, Open Approach (ICD-10-PCS; 2024-01-30)
PROC: 0PS40ZZ Reposition Thoracic Vertebra, Open Approach (ICD-10-PCS; 2024-01-30)
PROC: 0QS00ZZ Reposition Lumbar Vertebra, Open Approach (ICD-10-PCS; 2024-01-30)
PROC: 0QH304Z Insertion of Internal Fixation Device into Left Pelvic Bone, Open Approach (ICD-10-PCS; 2024-01-30)
PROC: 0QH204Z Insertion of Internal Fixation Device into Right Pelvic Bone, Open Approach (ICD-10-PCS; 2024-01-30)
PROC: 0SB20ZZ Excision of Lumbar Vertebral Disc, Open Approach (ICD-10-PCS; 2024-01-30)
PROC: 0QP004Z Removal of Internal Fixation Device from Lumbar Vertebra, Open Approach (ICD-10-PCS; 2024-01-30)
PROC: 01NB0ZZ Release Lumbar Nerve, Open Approach (ICD-10-PCS; 2024-01-30)
PROC: 01N80ZZ Release Thoracic Nerve, Open Approach (ICD-10-PCS; 2024-01-30)
PROC: 8E0WXBZ Computer Assisted Procedure of Trunk Region (ICD-10-PCS; 2024-01-30)
PROC: 0SG10AJ Fusion of 2 or more Lumbar Vertebral Joints with Interbody Fusion Device, Posterior Approach, Anterior Column, Open Approach (ICD-10-PCS; principal; 2024-01-30 09:45)
DX: S32.039A Unspecified fracture of third lumbar vertebra, initial encounter for closed fracture (principal); M47.16 Other spondylosis with myelopathy, lumbar region; M51.06 Intervertebral disc disorders with myelopathy, lumbar region; E66.9 Obesity, unspecified; D72.828 Other elevated white blood cell count; S32.019S Unspecified fracture of first lumbar vertebra, sequela; Z68.31 Body mass index [BMI] 31.0-31.9, adult; G89.29 Other chronic pain; F41.9 Anxiety disorder, unspecified; M48.062 Spinal stenosis, lumbar region with neurogenic claudication; R29.6 Repeated falls; E78.5 Hyperlipidemia, unspecified; M47.26 Other spondylosis with radiculopathy, lumbar region; M40.209 Unspecified kyphosis, site unspecified; R53.83 Other fatigue; M51.16 Intervertebral disc disorders with radiculopathy, lumbar region; M51.17 Intervertebral disc disorders with radiculopathy, lumbosacral region; M62.562 Muscle wasting and atrophy, not elsewhere classified, left lower leg; W18.30XA Fall on same level, unspecified, initial encounter; Y92.009 Unspecified place in unspecified non-institutional (private) residence as the place of occurrence of the external cause; Z79.891 Long term (current) use of opiate analgesic; Z91.81 History of falling; Z79.899 Other long term (current) drug therapy; Z87.891 Personal history of nicotine dependence; Z98.1 Arthrodesis status
CPT/HCPCS: 36415; 71045; 72100; 72128; 72131; 80048; 80053; 83036; 85025; 86850; 86900; 86901; 86920; 96361; 96365; 96372; 96375; 96376; 99284

== ENCOUNTER → 2024-02-29 | Outpatient (CLI) | payer BC, OTHER ==
[~2024-02-29] MED LIST changes: +SODIUM CHLORIDE 0.9% 250 ML in EMPTY BAG 1 BAG IV PRN; -TRANEXAMIC 1,000 MG/100ML-NACL 1,000 MG in SALINE 1 100ML.BAG IVPB PRN
[2024-02-29 14:15] VITALS: BP 122/80; PULSE 91; RESP 16; TEMP 97.7
[2024-02-29] MEDS: SODIUM CHLORIDE 0.9% 500 ML 500 ML in EMPTY BAG 1 BAG IV PRN (14:15)
[2024-02-29] MEDS: ZOLEDRONIC ACID 5 MG in SODIUM CHLORIDE 0.9% 100 ML IV NR (14:16)
== END ==
LOC: PROCWHC3 13:55
PROVIDERS: ATTEND Nurse Practitioner Family
DX: M85.80 Other specified disorders of bone density and structure, unspecified site (principal)
CPT/HCPCS: 96365; J3489

== ENCOUNTER 2024-04-16 05:15 | Observation (INO) | payer MEDICARE ==
--- NOTE | 2024-04-16 05:21 | ED ---
Back Pain HPI - General Stated Complaint: Back pain Time Seen by Provider: 04/16/24 05:20 Source: RN notes reviewed, old records reviewed Mode of arrival: EMS - History of Present Illness Initial Comments: This is a 53-year-old male presenting with severe back pain history of chronic back pain with lots of surgeries in his lifetime repeat and recurrent surgeries for the back pain patient states that he rented a hotel with his and that is when his back pain started tonight. He had some pain when he went to bed but woke up unable to move secondary to severe pain. MD Complaint: back pain, back injury -: hour(s) Similar Symptoms Previously: Yes Place: home Radiation: buttocks, left leg, right leg Severity: severe Severity scale (1-10): 10 Quality: sharp Consistency: constant Improves With: none Worsens With: none Treatments Prior to Arrival: prescription analgesics - Related Data Home Medications Medication Instructions Recorded Confirmed SUMAtriptan succinate [Imitrex] 50 mg PO DAILY PRN 12/12/17 04/16/24 Pantoprazole Sodium [Protonix] 40 mg PO DAILY 04/16/21 04/16/24 Fenofibrate [Lofibra] 160 mg PO DAILY 02/01/23 04/16/24 Terbinafine [LamISIL] 250 mg PO DAILY 01/28/24 04/16/24 Cyclobenzaprine [Flexeril] 10 mg PO TID 04/16/24 04/16/24 Famotidine [Pepcid] 20 mg PO BID 04/16/24 04/16/24 Vitamin C (Unknown Dose) 1 tab PO DAILY 04/16/24 04/16/24 Vitamin D (Unknown Dose) 1 tab PO DAILY 04/16/24 04/16/24 oxyCODONE-APAP 5-325MG [Percocet 1 tab PO HS 04/16/24 04/16/24 5-325 mg] Previous Rx's Medication Instructions Recorded Naproxen 500 mg PO BID PRN #30 tab 04/19/24 Pregabalin [Lyrica] 150 mg PO BID 14 Days #30 cap 04/19/24 Tamsulosin [Flomax] 0.4 mg PO PC-SUPPER #14 cap 04/19/24 Allergies Allergy/AdvReac Type Severity Reaction Status Date / Time adhesive Allergy Rash/Hives Verified 04/16/24 07:31 aspirin AdvReac Nausea Verified 04/16/24 07:31 wine spirit AdvReac Unknown Verified 04/16/24 07:31 Review of Systems ROS Statement: Those systems with pertinent positive or pertinent negative responses have been documented in the HPI. ROS Other: All systems not noted in ROS Statement are negative. Past Medical History Past Medical History: GERD/Reflux, Hyperlipidemia Additional Past Medical History / Comment(s): Frequent migraine headaches especially w/stressful situations. Pain and burning down both legs.resolved since 1st surgery. Scratches on LE's. History of Any Multi-Drug Resistant Organisms: None Reported Past Surgical History: Cholecystectomy, Hernia Repair, Orthopedic Surgery Additional Past Surgical History / Comment(s): multiple back surgeries X3, right shoulder sx, wrist sx, hernia repair, colonoscopy Past Anesthesia/Blood Transfusion Reactions: No Reported Reaction Additional Past Anesthesia/Blood Transfusion Reaction / Comment(s): No previous blood transfusions Smoking Status: Former smoker - Past Family History Mother Family Medical History: No Reported History General Exam - General Exam Comments Initial Comments: No focal neurological deficits no loss of bowel or bladder good sensation General appearance: alert, in no apparent distress Head exam: Present: atraumatic, normocephalic, normal inspection Eye exam: Present: normal appearance, PERRL, EOMI. Absent: scleral icterus, conjunctival injection, periorbital swelling ENT exam: Present: normal exam, mucous membranes moist Neck exam: Present: normal inspection. Absent: tenderness, meningismus, lymphadenopathy Respiratory exam: Present: normal lung sounds bilaterally. Absent: respiratory distress, wheezes, rales, rhonchi, stridor Cardiovascular Exam: Present: regular rate, normal rhythm, normal heart sounds. Absent: systolic murmur, diastolic murmur, rubs, gallop, clicks GI/Abdominal exam: Present: soft, normal bowel sounds. Absent: distended, tenderness, guarding, rebound, rigid Extremities exam: Present: normal inspection, full ROM, normal capillary refill. Absent: tenderness, pedal edema, joint swelling, calf tenderness Back exam: Present: normal inspection Neurological exam: Present: alert, oriented X3, CN II-XII intact Psychiatric exam: Present: normal affect, normal mood Skin exam: Present: warm, dry, intact, normal color. Absent: rash Course Vital Signs 04/16/24 04/16/24 04/16/24 05:17 06:25 07:36 Temperature 97.9 F Pulse Rate 91 64 107 H Respiratory 20 18 18 Rate Blood Pressure 136/76 124/78 118/79 O2 Sat by Pulse 99 95 98 Oximetry 04/16/24 04/16/24 04/16/24 09:00 11:00 11:36 Temperature Pulse Rate 101 H 98 97 Respiratory 20 18 18 Rate Blood Pressure 119/82 124/87 126/85 O2 Sat by Pulse 97 96 98 Oximetry - Reevaluation(s) Reevaluation #1: 04/16/24 06:01 medical Records reviewed Patient's prior surgical history and ER visits are reviewed with multiple admissions for intractable pain Reevaluation #2: Pain is difficult to control here in the ER Multiple medications given no relief Reevaluation #3: Patient informed of results questions answered Reevaluation #4: Was pt. sent in by a medical professional or institution (, PA, ASTRONOMY TEACHER, urgent care, hospital, or half-way...) When possible be specific @ -no Did you speak to anyone other than the patient for history (EMS, parent, family, police, friend...)? What history was obtained from this source @ -no Did you review nursing and triage notes (agree or disagree)? Why? @ -agree Are old charts reviewed (outside hosp., previous admission, EMS record, old EKG, old radiological studies, urgent care reports/EKG's, half-way records)? Report findings @ -yes Differential Diagnosis (chest pain, altered mental status, abdominal pain women, abdominal pain men, vaginal bleeding, weakness, fever, dyspnea, syncope, headache, dizziness, GI bleed, back pain, seizure, CVA, palpatations, mental health, musculoskeletal)? @ -prior EKG interpreted by me (3pts min.). @ -no X-rays interpreted by me (1pt min.). @ -no CT interpreted by me (1pt min.). @ -yes negative for acute disease U/S interpreted by me (1pt. min.). @ -no What testing was considered but not performed or refused? (CT, X-rays, U/S, labs)? Why? @ -none What meds were considered but not given or refused? Why? @ -none Did you discuss the management of the patient with other professionals (professionals i.e. , PA, ASTRONOMY TEACHER, lab, RT, psych nurse, long term care social worker, marble supervisor, teacher, tactical intelligence officer, mattress spring encaser)? Give summary @ -no Was smoking cessation discussed for >3mins.? @ -no Was critical care preformed (if so, how long)? @ -no Were there social determinants of health that impacted care today? How? (Homelessness, low income, unemployed, alcoholism, drug addiction, transportation, low edu. Level, literacy, decrease access to med. care, penitentiary, rehab)? @ -none Was there de-escalation of care discussed even if they declined (Discuss DNR or withdrawal of care, Hospice)? DNR status @ -no What co-morbidities impacted this encounter? (DM, HTN, Smoking, COPD, CAD, Cancer, CVA, ARF, Chemo, Hep., AIDS, mental health diagnosis, sleep apnea, morbid obesity)? @ -none Was patient admitted / discharged? Hospital course, mention meds given and route, prescriptions, significant lab abnormalities, going to OR and other pertinent info. @ - 53 male to ER for sexually exacerbated back pain with recent back surgery. Patient coming in for intractable pain here in the ER states he cannot get comfortable cannot walk secondary to severity of pain Undiagnosed new problem with uncertain prognosis? @ -no Drug Therapy requiring intensive monitoring for toxicity (Heparin, Nitro, Insulin, Cardizem)? @ -no Were any procedures done? @ -no Diagnosis/symptom? @ -Acute on chronic back pain intractable back pain Acute, or Chronic, or Acute on Chronic? @ -Acute Uncomplicated (without systemic symptoms) or Complicated (systemic symptoms)? @ -Complicated Side effects of treatment? @ -no Exacerbation, Progression, or Severe Exacerbation? @ -exacerbation Poses a threat to life or bodily function? How? (Chest pain, [place], [place], pneumonia, PE, COPD, DKA, ARF, appy, cholecystitis, CVA, Diverticulitis, Homicidal, Suicidal, threat to staff... and all critical care pts) @ -no Reevaluation #5: Differential Back Pain: Strain, zoster, cauda equina syndrome, epidural abscess, vertebral osteomyelitis , discitis, fracture, subluxation, disc herniation, DJD, spinal stenosis, dissection, AAA, pancreatitis, peptic ulcer disease, pyelonephritis, kidney stone, this is not meant to be an all-inclusive list. Medical Decision Making - Medical Decision Making 53 male to ER for sexually exacerbated back pain with recent back surgery. Patient coming in for intractable pain here in the ER states he cannot get comfortable cannot walk secondary to severity of pain - Lab Data Result diagrams: 04/18/24 04:53 04/18/24 04:53 Lab Results 04/16/24 04/16/24 Range/Units 05:47 05:47 WBC 11.7 H (3.8-10.6) k/uL RBC 4.09 L (4.30-5.90) m/uL Hgb 9.2 L (13.0-17.5) gm/dL Hct 32.0 L (39.0-53.0) % MCV 78.4 L (80.0-100.0) fL MCH 22.5 L (25.0-35.0) pg MCHC 28.7 L (31.0-37.0) g/dL RDW 17.2 H (11.5-15.5) % Plt Count 386 (150-450) k/uL MPV 7.6 Neutrophils % 88 % Lymphocytes % 7 % Monocytes % 4 % Eosinophils % 0 % Basophils % 0 % Neutrophils # 10.3 H (1.3-7.7) k/uL Lymphocytes # 0.8 L (1.0-4.8) k/uL Monocytes # 0.5 (0-1.0) k/uL Eosinophils # 0.0 (0-0.7) k/uL Basophils # 0.0 (0-0.2) k/uL Hypochromasia Marked Poikilocytosis Slight Anisocytosis Slight Microcytosis Slight Sodium 139 (137-145) mmol/L Potassium 3.5 (3.5-5.1) mmol/L Chloride 109 H (98-107) mmol/L Carbon Dioxide 17 L (22-30) mmol/L Anion Gap 13 mmol/L BUN 18 (9-20) mg/dL Creatinine 0.88 (0.66-1.25) mg/dL Est GFR (CKD-EPI)AfAm >90 (>60 ml/min/1.73 sqM) Est GFR (CKD-EPI)NonAf >90 (>60 ml/min/1.73 sqM) Glucose 79 (74-99) mg/dL Calcium 8.9 (8.4-10.2) mg/dL Phosphorus 1.5 L (2.5-4.5) mg/dL Magnesium 1.7 (1.6-2.3) mg/dL Total Bilirubin 0.3 (0.2-1.3) mg/dL AST 17 (17-59) U/L ALT 11 (4-49) U/L Alkaline Phosphatase 67 (38-126) U/L Total Protein 6.0 L (6.3-8.2) g/dL Albumin 3.8 (3.5-5.0) g/dL - Radiology Data Radiology results: report reviewed (CT TL spine negative for acute disease), image reviewed Disposition Clinical Impression: Mechanical back pain, Mid back pain Disposition: HOME SELF-CARE Condition: Fair Is patient prescribed a controlled substance at d/c from ED?: No
[2024-04-16] MEDS: ONDANSETRON 4 MG/2 ML VIAL IVP STA (05:37)
[2024-04-16] MEDS: HYDROmorphone 1 MG/ML 1 ML SYRINGE IVP STA ×2 (05:37→06:30)
[2024-04-16] MEDS: SODIUM CHLORIDE 0.9% 1,000 ML IV ONE (05:38)
[2024-04-16] MEDS: KETOROLAC 15 MG/ML 1 ML VIAL IVP STA (05:47)
[2024-04-16 06:28] LABS: Anisocytosis Slight; Basophils % (A) 0 %; Eosinophils % (A) 0 %; HGB 9.2 gm/dL (13.0-17.5); Hypochromasia Marked; Lymphocytes # (A) 0.8 k/uL (1.0-4.8); Lymphocytes % (A) 7 %; MCH 22.5 pg (25.0-35.0); MCHC 28.7 g/dL (31.0-37.0); MCV 78.4 fL (80.0-100.0); Mean Platelet Volume 7.6; Microcytosis Slight; Monocytes # (A) 0.5 k/uL (0-1.0); Monocytes % (A) 4 %; Neutrophils # (A) 10.3 k/uL (1.3-7.7); Neutrophils % (A) 88 %; Platelet Count 386 k/uL (150-450); Poikilocytosis Slight; RBC 4.09 m/uL (4.30-5.90); RDW 17.2 % (11.5-15.5); WBC 11.7 k/uL (3.8-10.6)
[2024-04-16] MEDS ORDERED: NALOXONE 0.4 MG/ML 1 ML VIAL IV PRN (06:46)
[2024-04-16] MEDS: LIDOCAINE 4% PATCH TOPICAL STA (06:50)
[2024-04-16 07:04] LABS: ALT 11 U/L (4-49); AST 17 U/L (17-59); African American GFR (CKD) >90 (>60 ml/min/1.73 sqM); Albumin 3.8 g/dL (3.5-5.0); Alkaline Phosphatase 67 U/L (38-126); Anion Gap 13 mmol/L; Blood Urea Nitrogen 18 mg/dL (9-20); Calcium 8.9 mg/dL (8.4-10.2); Carbon Dioxide 17 mmol/L (22-30); Chloride 109 mmol/L (98-107); Glucose 79 mg/dL (74-99); Magnesium 1.7 mg/dL (1.6-2.3); Non-African American GFR(CKD) >90 (>60 ml/min/1.73 sqM); Phosphorus 1.5 mg/dL (2.5-4.5); Potassium 3.5 mmol/L (3.5-5.1); Sodium 139 mmol/L (137-145); Total Bilirubin 0.3 mg/dL (0.2-1.3)
[2024-04-16] MEDS: SODIUM CHLORIDE 0.9% 1,000 ML IV SCH (07:09)
[2024-04-16] MEDS: HYDROmorphone 1 MG/ML 1 ML SYRINGE IVP PRN (09:46)
[2024-04-16] MEDS ORDERED: Magnesium Replacement Protocol 1 EACH MISC MISCELLANE PRN (10:23)
[2024-04-16] MEDS: CYCLOBENZAPRINE 10 MG TAB PO SCH (10:43)
[2024-04-16] MEDS: FENOFIBRATE 160 MG TAB PO SCH (10:43)
[2024-04-16] MEDS: MAGNESIUM SULFATE-D5W PMX 1 GM in DEXTROSE/WATER 1 100ML.BAG IVPB ONE (10:43)
[2024-04-16] MEDS: FAMOTIDINE 20 MG TAB PO SCH (10:43)
[2024-04-16] MEDS: SUMAtriptan succinate 50 MG TAB PO PRN (11:30)
--- NOTE | 2024-04-16 14:41 | P.HPIM ---
History of Present Illness H&P Date: 04/16/24 This is a pleasant 53-year-old male with medical history significant for acid reflux, hyperlipidemia, migraines, peripheral neuropathy, anxiety, marijuana use. Patient is a former smoker. Patient is also had multiple orthopedic surgeries with his most recent 1 being in January 2024 patient underwent revision T10 through pelvis decompression and fusion with open treatment of L3 fracture stabilization and revision of instrumentation. Patient had been doing relatively well at home. He states that over the weekend he rented a hotel room with his states that "they did the deed multiple times," and since then he has been unable to essentially ambulate and now having excruciating back pain. He states at rest the pain is currently a 7 out of 10 is a sharp spasm-like pain in the mid back. When the back is spasming he states that the pain goes to a 30 out of 10. He denies any loss of bladder or bowel. He states that his left foot is chronically numb since his prior back surgery. He was admitted to the hospital with consult placed to Dr. Holland for evaluation. White blood cell count is 11.7, hemoglobin 9.2, sodium 139, potassium 3.5, BUN of 18 creatinine of 0.88, phosphorus 1.5. While in the ER patient received a dose of IV push Toradol, IV push Dilaudid and IV push Valium. REVIEW OF SYSTEMS: CONSTITUTIONAL: No fever, no malaise, no fatigue. HEENT: No recent visual problems or hearing problems. Denied any sore throat. CARDIOVASCULAR: No chest pain, orthopnea, PND, no palpitations, no syncope. PULMONARY: No shortness of breath, no cough, no hemoptysis. GASTROINTESTINAL: No diarrhea, no nausea, no vomiting, no abdominal pain. NEUROLOGICAL: No headaches, no weakness, no numbness. HEMATOLOGICAL: Denies any bleeding or petechiae. GENITOURINARY: Denies any burning micturition, frequency, or urgency. MUSCULOSKELETAL/RHEUMATOLOGICAL: Denies any joint pain, swelling, or any muscle pain. ENDOCRINE: Denies any polyuria or polydipsia. The rest of the 14-point review of systems is negative. PHYSICAL EXAMINATION: GENERAL: The patient is alert and oriented x3, not in any acute distress. Well developed, well nourished. HEENT: Pupils are round and equally reacting to light. EOMI. No scleral icterus. No conjunctival pallor. Normocephalic, atraumatic. No pharyngeal erythema. No thyromegaly. CARDIOVASCULAR: S1 and S2 present. No murmurs, rubs, or gallops. PULMONARY: Chest is clear to auscultation, no wheezing or crackles. ABDOMEN: Soft, nontender, nondistended, normoactive bowel sounds. No palpable organomegaly. MUSCULOSKELETAL: No joint swelling or deformity. EXTREMITIES: No cyanosis, clubbing, or pedal edema. NEUROLOGICAL: Gross neurological examination did not reveal any focal deficits. SKIN: No rashes. Assessment and plan Lower back pain Recent T10 through pelvis decompression and fusion with open treatment of L3 fracture stabilization and revision of instrumentation on January 30, 2024 Gastroesophageal reflux Hyperlipidemia Migraines Peripheral neuropathy Anxiety Marijuana use Leukemoid reaction GI prophylaxis Full Code Plan Continue NSAID therapy Continue IV dilaudid q3hour Continue prn flexeril Orthopedic spinal consultation CT thoracic lumbar spine ordered and pending PT/OT consultation The impression and plan of care has been dictated by Corie Pineda, Nurse Practitioner as directed. Dr. Herberth MD I have performed a history and physical examination and medical decision making of this patient, discussed the same with the dictator, and agree with the dictators assessment and plan as written, documented as a scribe. Based on total visit time, I have performed more than 50% of this visit. Past Medical History Past Medical History: GERD/Reflux, Hyperlipidemia Additional Past Medical History / Comment(s): Frequent migraine headaches xi cially w/stressful situations. Pain and burning down both legs.resolved since 1st surgery. Scratches on LE's. History of Any Multi-Drug Resistant Organisms: None Reported Past Surgical History: Cholecystectomy, Hernia Repair, Orthopedic Surgery Additional Past Surgical History / Comment(s): multiple back surgeries X3, right shoulder sx, wrist sx, hernia repair, colonoscopy Past Anesthesia/Blood Transfusion Reactions: No Reported Reaction Additional Past Anesthesia/Blood Transfusion Reaction / Comment(s): No previous blood transfusions Past Psychological History: Anxiety Additional Psychological History / Comment(s): just placed on some new meds, hasn't been given dx. Smoking Status: Former smoker Past Alcohol Use History: None Reported Additional Past Alcohol Use History / Comment(s): Started smoking at age 16, 1/2 ppd, quit September 2019. Past Drug Use History: None Reported Additional Drug Use History / Comment(s): Hx heavy Marijuana use daily use to help with pain control - Past Family History Mother Family Medical History: No Reported History Medications and Allergies Home Medications Medication Instructions Recorded Confirmed Type SUMAtriptan succinate [Imitrex] 50 mg PO DAILY PRN 12/12/17 04/16/24 History Pantoprazole Sodium [Protonix] 40 mg PO DAILY 04/16/21 04/16/24 History Fenofibrate [Lofibra] 160 mg PO DAILY 02/01/23 04/16/24 History Terbinafine [LamISIL] 250 mg PO DAILY 01/28/24 04/16/24 History Cyclobenzaprine [Flexeril] 10 mg PO TID 04/16/24 04/16/24 History Famotidine [Pepcid] 20 mg PO BID 04/16/24 04/16/24 History Vitamin C (Unknown Dose) 1 tab PO DAILY 04/16/24 04/16/24 History Vitamin D (Unknown Dose) 1 tab PO DAILY 04/16/24 04/16/24 History oxyCODONE-APAP 5-325MG [Percocet 1 tab PO HS 04/16/24 04/16/24 History 5-325 mg] Allergies Allergy/AdvReac Type Severity Reaction Status Date / Time adhesive Allergy Rash/Hives Verified 04/16/24 07:31 aspirin AdvReac Nausea Verified 04/16/24 07:31 wine spirit AdvReac Unknown Verified 04/16/24 07:31 Physical Exam Vitals: Vital Signs Temp Pulse Pulse Resp BP BP Pulse Ox 04/16/24 12:12 98.0 F 95 16 125/81 95 04/16/24 11:36 97 18 126/85 98 04/16/24 11:00 98 18 124/87 96 04/16/24 09:00 101 H 20 119/82 97 04/16/24 07:36 107 H 18 118/79 98 04/16/24 06:25 64 18 124/78 95 04/16/24 05:17 97.9 F 91 20 136/76 99 Intake and Output 04/15/24 04/16/24 04/16/24 22:59 06:59 14:59 Other: Voiding Method External Catheter Weight 83.915 kg 83.915 kg Results CBC & Chem 7: 04/16/24 05:47 04/16/24 05:47 Labs: Abnormal Lab Results - Last 24 Hours (Table) 04/16/24 04/16/24 Range/Units 05:47 05:47 WBC 11.7 H (3.8-10.6) k/uL RBC 4.09 L (4.30-5.90) m/uL Hgb 9.2 L (13.0-17.5) gm/dL Hct 32.0 L (39.0-53.0) % MCV 78.4 L (80.0-100.0) fL MCH 22.5 L (25.0-35.0) pg MCHC 28.7 L (31.0-37.0) g/dL RDW 17.2 H (11.5-15.5) % Neutrophils # 10.3 H (1.3-7.7) k/uL Lymphocytes # 0.8 L (1.0-4.8) k/uL Chloride 109 H (98-107) mmol/L Carbon Dioxide 17 L (22-30) mmol/L Phosphorus 1.5 L (2.5-4.5) mg/dL Total Protein 6.0 L (6.3-8.2) g/dL Assessment and Plan Time with Patient: Less than 30
[2024-04-16] MEDS: KETOROLAC 15 MG/ML 1 ML VIAL IVP PRN (17:30)
--- NOTE | 2024-04-16 17:46 | CT ---
EXAMINATION TYPE: CT thor lumbar spine wo con CT DLP: 2489.2 mGycm, Automated exposure control for dose reduction was used. DATE OF EXAM: 04/16/2024 5:01 PM CLINICAL INDICATION:Male, 53 years old with history of back pain, hx of multiple back surgeries; Back pain, pain COMPARISON: CT thoracolumbar spine 01/31/2024, 01/26/2024, CT lumbar spine 12/11/2023, 11/06/2023 TECHNIQUE: Axial images of the thoracic and lumbar spine were obtained without contrast. Coronal and sagittal reformats were performed. CT Contrast: Contrast used: none. Oral contrast used: none. FINDINGS: Redemonstrated posterior and interbody lumbar fusion L3-S1 levels with fixed grade 1 anterolisthesis at L5-S1 and L3-L4. Redemonstrated posterior and interbody lumbar fusion up to the T12 level and post erior fusion up to the T10 level. Vertebroplasty changes identified at the T10, T11, and L3 levels. S imilar subtle anterior wedging of the L1 vertebral body. Multilevel laminectomy changes of the lumbar spine redemonstrated. Overall hardware appears intact with appropriate alignment. The posterior fusi on hardware extends down through the pelvis. Hardware creates streak artifact which limits evaluation . Mild dextrocurvature of the thoracolumbar spine. No new vertebral compression collapse. There is surrounding linear lucency involving the T10 vertebra l body along its superior right lateral aspect best appreciated on the coronal view (series 6, image 37). This extends into the pedicular region on the right. Similar erosive change with lucency involvi ng the superior endplate just above the left pedicular screw at L3. There is fluid identified within the laminectomy bed. No soft tissue gas. No gross evidence of significant central canal or neural for aminal stenosis. Remote healed right sided rib fractures. Incidental benign vertebral hemangioma involving the upper c ervical vertebral bodies. Moderate emphysematous change in the visualized lungs. Stranding changes within the dependent portion of the visualized lungs likely representing atelectasis. Gallbladder surgically absent. Partial visualization of the right shoulder arthroplasty which creates streak artifact limiting evalu ation. IMPRESSION: Redemonstrated of extensive fusion changes with laminectomy. Hardware appears intact. Fluid is identi fied within the laminectomy bed likely representing a seroma. No gas. There is superior endplate eros ion involving the L3 left reticular screw again. Fracture versus periprosthetic lucency involving the T10 vertebral body along its superior right lateral aspect with extension into the pedicle. Consider further evaluation with MRI. [facility], , 04/16/2024 5:44 PM
[2024-04-16] MEDS: oxyCODONE-APAP 5-325MG 1 EACH TAB PO SCH (19:51)
[2024-04-17] MEDS: CALCIUM CARBONATE 500 MG CHEWABLE PO PRN (02:30)
[2024-04-17] MEDS: PANTOPRAZOLE 40 MG TABLET PO SCH (05:42)
--- NOTE | 2024-04-17 07:35 | P.CNOR ---
History of Present Illness - [facility] Consult date: 04/17/24 Consult reason: back pain History of present illness: Patient is a 53-year-old male who is known to our orthopedic spine service. Patient has had multiple back surgeries over the last 2 to 3 years, his most recent was in January 2024, he had underwent a revision [id number] decompression and fusion with open L3 fracture treatment with revision of hardware. Patient was last seen in the office in March 2024, he was evaluated by Dr. Holland at that time. Patient has been progressing rather well, he had been utilizing a walker for ambulation. Patient was scheduled to follow-up with Dr. Piña's and in early May 2024 for reevaluation in the outpatient setting. Apparently the patient's and him were away on a trip in a hotel throughout most of the weekend where " extracurricular activities" occurred on many occasions. Patient had developed some generalized back pain to the weekend, on Tuesday morning when he woke up he had significant spasming and pain in his low back. Patient was unable to ambulate due to the severity of the pain, EMS was contacted and brought to the hospital for further evaluation. Patient was admitted to the hospital with no imaging test of the thoracic or lumbar spine. Our orthopedic team was consulted for evaluation. A CT thoracolumbar without contrast had been ordered for further evaluation. Patient was evaluated at bedside, his is also present. Patient was in quite a bit of discomfort on exam. He notes most of the discomfort in the central aspect of his mid to low back that, radiates into the flanks. He denies any radicular pain into the bilateral lower extremities. He denies any guillermina weakness or loss of sensation of the bilateral lower extremities. He feels that the when the spasm/pain hits in the central aspect of the back it is causing his severe pain. Patient has no upper extremity symptoms, this to include weakness or radicular pain. He denies any loss of bowel or bladder function at this time. He denies any numbness or tingling to the genital or perineal region. Review of Systems Constitutional: Reports as per HPI Past Medical History Past Medical History: GERD/Reflux, Hyperlipidemia Additional Past Medical History / Comment(s): Frequent migraine headaches especially w/stressful situations. Pain and burning down both legs.resolved since 1st surgery. Scratches on LE's. History of Any Multi-Drug Resistant Organisms: None Reported Past Surgical History: Cholecystectomy, Hernia Repair, Orthopedic Surgery Additional Past Surgical History / Comment(s): multiple back surgeries X3, right shoulder sx, wrist sx, hernia repair, colonoscopy Past Anesthesia/Blood Transfusion Reactions: No Reported Reaction Additional Past Anesthesia/Blood Transfusion Reaction / Comm: No previous blood transfusions Past Psychological History: Anxiety Additional Psychological History / Comment(s): just placed on some new meds, hasn't been given dx. Smoking Status: Former smoker Past Alcohol Use History: None Reported Additional Past Alcohol Use History / Comment(s): Started smoking at age 16, 1/2 ppd, quit September 2019. Past Drug Use History: None Reported Additional Drug Use History / Comment(s): Hx heavy Marijuana use daily use to help with pain control - Past Family History Mother Family Medical History: No Reported History Medications and Allergies Home Medications Medication Instructions Recorded Confirmed Type SUMAtriptan succinate [Imitrex] 50 mg PO DAILY PRN 12/12/17 04/16/24 History Pantoprazole Sodium [Protonix] 40 mg PO DAILY 04/16/21 04/16/24 History Fenofibrate [Lofibra] 160 mg PO DAILY 02/01/23 04/16/24 History Terbinafine [LamISIL] 250 mg PO DAILY 01/28/24 04/16/24 History Cyclobenzaprine [Flexeril] 10 mg PO TID 04/16/24 04/16/24 History Famotidine [Pepcid] 20 mg PO BID 04/16/24 04/16/24 History Vitamin C (Unknown Dose) 1 tab PO DAILY 04/16/24 04/16/24 History Vitamin D (Unknown Dose) 1 tab PO DAILY 04/16/24 04/16/24 History oxyCODONE-APAP 5-325MG [Percocet 1 tab PO HS 04/16/24 04/16/24 History 5-325 mg] Allergies Allergy/AdvReac Type Severity Reaction Status Date / Time adhesive Allergy Rash/Hives Verified 04/16/24 07:31 aspirin AdvReac Nausea Verified 04/16/24 07:31 wine spirit AdvReac Unknown Verified 04/16/24 07:31 Physical Examination Gen: AOx3, NAD VSS stable at this time Integument: Thoracolumbar incision is well-healed in the midline region, there is no openings in the skin. There is no erythema, areas of soft tissue swelling, ecchymosis Palpation: Tenderness with palpation to the paraspinal muscles in the lower thoracic and lumbar region. ROM: Full range of motion in all major muscle groups of the bilateral upper extremities Patient's range of motion with hip flexion is difficult to assess due to the pain, once I am able to lift patient's legs up off the bed he can hold them in place with no difficulty. Knee extension, knee flexion, plantarflexion, dorsiflexion, EHL, FHL are intact Sensory Exam: Senory exam to light touch is intact C5-T1 Senosry exam to light touch is intact L2-S Motor: 5/5 strength appreciated in the bilateral upper extremities with shoulder elevation, shoulder abduction, elbow extension, elbow flexion, wrist extension, wrist flexion, road cleaner 4/5 strength in the bilateral lower extremities with plantarflexion, dorsiflexion, EHL, FHL Knee extension, knee flexion and hip flexion were difficult to assess due to patient's pain, like stated above once patient's legs were elevated off the bed hip flexion bilaterally was 4/5 Reflexes: 2/4 in all UE and LE Negative Mansi's bilaterally Negative clonus bilaterally Results - Labs Labs: H & H 04/16/24 Range/Units 05:47 Hgb 9.2 L (13.0-17.5) gm/dL Hct 32.0 L (39.0-53.0) % Result Diagrams: 04/16/24 05:47 04/16/24 05:47 Assessment and Plan Assessment: History of revision [id number] decompression and fusion, open treatment L3 fracture Chronic back pain Muscles spasms, thoracolumbar Multiple medical comorbidities Plan: Imaging: Thoracic or lumbar CT scan without contrast was reviewed, both reports and images. Hardware appears to be in good position with adequate alignment throughout the thoracolumbar spine. Some mild cortical change noted on the superior endplate of the right sided T10 vertebral body, the pedicle screws seem well aligned with good cement fixation. Plan: I was able to discuss the case, this to include both physical exam findings and imaging studies and my attending Dr. Holland. No emergent orthopedic spine surgery recommended at this time Pain control, patient's home medications have been resumed, this to include Percocet 5 mg / 325 mg, Flexeril 10 mg. I did add Valium 5 mg IV every 6 hours as needed GI and DVT prophylaxis per primary medical service Recommending PT/OT evaluation Weight-bear as tolerated, would recommend use of walker or cane. No bending, lifting, twisting over 20 pounds Other medical specialty recommendations appreciated Will reevaluate patient on 04/18/2024 Time with Patient: Less than 30
[2024-04-17 08:53] LABS: Basophils # (A) 0.03 X 10*3/uL (0.00-0.10); Basophils % (A) 0.2 %; Eosinophils # (A) 0.01 X 10*3/uL (0.04-0.35); Eosinophils % (A) 0.1 %; HCT 29.4 % (39.6-50.0); HGB 8.9 g/dL (13.0-17.0); Lymphocytes # (A) 0.97 X 10*3/uL (0.90-5.00); Lymphocytes % (A) 6.9 %; MCHC 30.3 g/dL (32.0-37.0); Mean Platelet Volume 9.7 FL (9.5-12.2); Monocytes % (A) 7.9 %; NRBC Per 100 WBC 0 X 10*3/uL (0.00-0.01); Neutrophils # (A) 11.82 X 10*3/uL (1.80-7.70); Neutrophils % (A) 84.3 %; Platelet Count 360 X 10*3/uL (140-440); RBC 3.87 X 10*6/uL (4.40-5.60); RDW 18.2 % (11.5-14.5); WBC 14.01 X 10*3/uL (4.50-10.00)
[2024-04-17] MEDS: MAGNESIUM SULFATE-D5W PMX 1 GM in DEXTROSE/WATER 1 100ML.BAG IVPB ONE (09:36)
[2024-04-17] MEDS: ENOXAPARIN 40 MG/0.4 ML SYRINGE SQ SCH (09:36)
--- NOTE | 2024-04-17 13:10 | P.PN ---
Subjective Progress Note Date: 04/17/24 Principal diagnosis: Chronic pain, history of [id number] decomression/fusion, open treatment L3 fracture Patient was evaluated today at bedside, he is lying in his hospital bed. Patient appears a little bit more comfortable compared to yesterday. Patient had urinated throughout the night, he was straight cathed this morning with 700 noted on output. Patient admits to continuing pain in the back that is now radiating into the anterior aspect of the bilateral thighs. Patient continues to demonstrate difficulty with doing any type of motion while in bed due to the pain is reproduced in the central aspect of his back. He denies any loss of bowel function at this time. He denies any numbness or tingling to the genital or perineal region currently. Objective - Vital Signs Vital signs: Vital Signs Temp 98.5 F 04/17/24 07:03 Pulse 104 H 04/17/24 07:03 Resp 16 04/17/24 07:03 BP 124/81 04/17/24 07:03 Pulse Ox 97 04/17/24 07:03 FiO2 Intake & Output 04/16/24 04/17/24 04/17/24 18:59 06:59 18:59 Intake Total 118 Output Total 685 1400 Balance -685 -1400 118 Weight 83.915 kg Intake: Oral 118 Output: Urine 200 1400 Straight 700 Post Void Residual 485 Other: Voiding Method External Catheter External Catheter # Bowel Movements 0 - Exam Gen: AOx3, NAD VSS stable at this time Integument: Thoracolumbar incision is well-healed in the midline region, there is no opening s in the skin. There is no erythema, areas of soft tissue swelling, ecchymosis Palpation: Tenderness with palpation to the paraspinal muscles in the lower thoracic and lumbar region. ROM: Full range of motion in all major muscle groups of the bilateral upper extremities Patient's range of motion with hip flexion is difficult to assess due to the pain, once I am able to lift patient's legs up off the bed he can hold them in place with no difficulty. Knee extension, knee flexion, plantarflexion, dorsiflexion, EHL, FHL are intact Sensory Exam: Senory exam to light touch is intact C5-T1 Senosry exam to light touch is intact L2-S Motor: 5/5 strength appreciated in the bilateral upper extremities with shoulder elevation, shoulder abduction, elbow extension, elbow flexion, wrist extension, wrist flexion, concrete foreman 4/5 strength in the bilateral lower extremities with plantarflexion, dorsifl exion, EHL, FHL Knee extension, knee flexion and hip flexion were difficult to assess due to patient's pain, like stated above once patient's legs were elevated off the bed hip flexion bilaterally was 4/5 Reflexes: 2/4 in all UE and LE Negative Mansi's bilaterally Negative clonus bilaterally - Labs CBC & Chem 7: 04/17/24 05:00 04/16/24 05:47 Labs: Abnormal Lab Results - Last 24 Hours (Table) 04/17/24 Range/Units 05:00 WBC 14.01 H (4.50-10.00) X 10*3/uL RBC 3.87 L (4.40-5.60) X 10*6/uL Hgb 8.9 L (13.0-17.0) g/dL Hct 29.4 L (39.6-50.0) % MCV 76.0 L (80.0-97.0) FL MCH 23.0 L (27.0-32.0) pg MCHC 30.3 L (32.0-37.0) g/dL RDW 18.2 H (11.5-14.5) % Immature Gran # 0.08 H (0.00-0.04) X 10*3/uL Neutrophils # 11.82 H (1.80-7.70) X 10*3/uL Monocytes # 1.10 H (0.20-1.00) X 10*3/uL Eosinophils # 0.01 L (0.04-0.35) X 10*3/uL Assessment and Plan Assessment: History of revision [id number] decompression and fusion, open treatment L3 fracture Chronic back pain Urinary retention Muscles spasms, thoracolumbar Multiple medical comorbidities Plan: Plan: I was able to discuss the case, this to include both physical exam findings and imaging studies and my attending Dr. Holland. No emergent orthopedic spine surgery recommended at this time Pain control, patient's home medications have been resumed, this to include Percocet 5 mg / 325 mg, Flexeril 10 mg. I did add Valium 5 mg IV every 6 hours as needed. I did Lyrica 150 mg scheduled 3 times daily along with IV Tylenol 1000 mg every 6 hours scheduled, Toradol 15 mg every 6 hours also has been jared eduled Internal medicine has ordered additional lab test, consider abdominal imaging studies to rule out any acute pathology. Patient admits to abdominal distention and bloating since being in the hospital, he states he had a bowel movement on 04/15/2024 prior to coming to the hospital. Patient states that since he has had his gallbladder surgery he has had issues with his GI system. GI and DVT prophylaxis per primary medical service Recommending PT/OT evaluation Weight-bear as tolerated, would recommend use of walker or cane. No bending, lifting, twisting over 20 pounds Other medical specialty recommendations appreciated Will continue to follow patient during hospital stay Time with Patient: Less than 30
[2024-04-17] MEDS: SIMETHICONE 40 MG/0.6 ML DROPS 2,000 MG/30 ML BOTTLE PO SCH (13:52)
[2024-04-17] MEDS: NA PHOS,M-B/NA PHOS,DI-BA 133 ML ENEMA RECTAL ONE (13:52)
[2024-04-17] MEDS: PREGABALIN 75 MG CAP PO SCH (16:19)
[2024-04-17] MEDS: KETOROLAC 15 MG/ML 1 ML VIAL IVP SCH (17:39)
[2024-04-17] MEDS: TAMSULOSIN 0.4 MG CAP.ER.24H PO SCH (17:39)
[2024-04-17] MEDS: ACETAMINOPHEN IV (For NPO) 1,000 MG in EMPTY BAG 1 BAG IVPB SCH (17:40)
--- NOTE | 2024-04-17 17:40 | P.PN ---
Subjective Progress Note Date: 04/17/24 This is a pleasant 53-year-old male with medical history significant for acid reflux, hyperlipidemia, migraines, peripheral neuropathy, anxiety, marijuana use. Patient is a former smoker. Patient is also had multiple orthopedic surgeries with his most recent 1 being in January 2024 patient underwent rev ision T10 through pelvis decompression and fusion with open treatment of L3 fracture stabilization and revision of instrumentation. Patient had been doing relatively well at home. He states that over the weekend he rented a hotel room with his states that "they did the deed multiple times," and since then he has been unable to essentially ambulate and now having excruciating back pain. He states at rest the pain is currently a 7 out of 10 is a sharp spasm-like pain in the mid back. When the back is spasming he states that the pain goes to a 30 out of 10. He denies any loss of bladder or bowel. He states that his left foot is chronically numb since his prior back surgery. He was admitted to the hospital with consult placed to Dr. Holland for evaluation. White blood cell count is 11.7, hemoglobin 9.2, sodium 139, potassium 3.5, BUN of 18 creatinine of 0.88, phosphorus 1.5. While in the ER patient received a dose of IV push Toradol, IV push Dilaudid and IV push Valium. 04/17/2024 Patient evaluated in follow up on the medical floor. Thoracic lumbar CT reveals extensive fusion changes with laminectomy hardware appears intact fluid is identified within the laminectomy bed likely representing a seroma there is superior endplate erosion involving the L3 left particular screw again fracture versus periprosthetic lucency involving the T10 vertebral body along the super ior lateral aspect with extension into the pedicle. back pain is not any better. He states yesterday he was able to roll, today his back is spasming when attempting.The pain is radiating into the front of the thighs now. He has not had BM 3 days and feels distended. He has bowel sounds and is passing gas. He is having urinary retention. An abdominal xray will be ordered. We will also order a fleet enema. REVIEW OF SYSTEMS: CONSTITUTIONAL: No fever, no malaise, no fatigue. HEENT: No recent visual problems or hearing problems. Denied any sore throat. CARDIOVASCULAR: No chest pain, orthopnea, PND, no palpitations, no syncope. PULMONARY: No shortness of breath, no cough, no hemoptysis. GASTROINTESTINAL: No diarrhea, no nausea, no vomiting, no abdominal pain. Reports abdominal pain and constipation NEUROLOGICAL: No headaches, no weakness, no numbness. Reports muscle spasm The rest of the 14-point review of systems is negative. PHYSICAL EXAMINATION: GENERAL: The patient is alert and oriented x3, not in any acute distress. Well developed, well nourished. HEENT: Pupils are round and equally reacting to light. EOMI. No scleral icterus. No conjunctival pallor. Normocephalic, atraumatic. No pharyngeal erythema. No thyromegaly. CARDIOVASCULAR: S1 and S2 present. No murmurs, rubs, or gallops. PULMONARY: Chest is clear to auscultation, no wheezing or crackles. ABDOMEN: Soft, nontender, distended, normoactive bowel sounds. No palpable organomegaly. MUSCULOSKELETAL: No joint swelling or deformity. EXTREMITIES: No cyanosis, clubbing, or pedal edema. NEUROLOGICAL: Gross neurological examination did not reveal any focal deficits. Generalized weakness SKIN: No rashes. Assessment and plan Lower back pain and muscle spasm Recent T10 through pelvis decompression and fusion with open treatment of L3 fracture stabilization and revision of instrumentation on January 30, 2024 Urinary retention Constipation Gastroesophageal reflux Hyperlipidemia Migraines Peripheral neuropathy Anxiety Marijuana use Leukemoid reaction GI prophylaxis Full Code Plan Continue NSAID therapy Continue IV dilaudid q3hour Continue prn flexeril and prn valium Orthopedic spinal consultation Insert indwelling shah catheter abdominal xray ordered Bowel regimen in place PT/OT consultation The impression and plan of care has been dictated by Corie Pineda, Nurse Practitioner as directed. Dr. Herberth MD I have performed a history and physical examination and medical decision making of this patient, discussed the same with the dictator, and agree with the dictators assessment and plan as written, documented as a scribe. Based on total visit time, I have performed more than 50% of this visit. Objective - Vital Signs Vital signs: Vital Signs Temp 98.3 F 04/17/24 14:20 Pulse 112 H 04/17/24 14:20 Resp 16 04/17/24 14:20 BP 128/82 04/17/24 14:20 Pulse Ox 95 04/17/24 14:20 FiO2 Intake & Output 04/16/24 04/17/24 04/17/24 18:59 06:59 18:59 Intake Total 358 Output Total 685 1400 Balance -685 -1400 358 Weight 83.915 kg Intake: Oral 358 Output: Urine 200 1400 Straight 700 Post Void Residual 485 Other: Voiding Method External Catheter External Catheter External Catheter # Bowel Movements 0 1 - Labs CBC & Chem 7: 04/17/24 05:00 04/16/24 05:47 Labs: Abnormal Lab Results - Last 24 Hours (Table) 04/17/24 Range/Units 05:00 WBC 14.01 H (4.50-10.00) X 10*3/uL RBC 3.87 L (4.40-5.60) X 10*6/uL Hgb 8.9 L (13.0-17.0) g/dL Hct 29.4 L (39.6-50.0) % MCV 76.0 L (80.0-97.0) FL MCH 23.0 L (27.0-32.0) pg MCHC 30.3 L (32.0-37.0) g/dL RDW 18.2 H (11.5-14.5) % Immature Gran # 0.08 H (0.00-0.04) X 10*3/uL Neutrophils # 11.82 H (1.80-7.70) X 10*3/uL Monocytes # 1.10 H (0.20-1.00) X 10*3/uL Eosinophils # 0.01 L (0.04-0.35) X 10*3/uL Assessment and Plan Time with Patient: Less than 30
[2024-04-17 18:07] LABS: Appearance,Urine Clear (Clear); Bacteria,Urine Occasional /hpf; Bilirubin,Urine Negative (Negative); Blood,Urine Negative (Negative); Color,Urine Yellow; Glucose,Urine (UA) Negative (Negative); Ketones,Urine Negative (Negative); Leukocyte Esterase,Urine Negative (Negative); Mucus,Urine Few /hpf; Nitrite,Urine Positive (Negative); Protein,Urine Trace (Negative); RBC,Urine 12 /hpf (0-5); Specific Gravity,Urine 1.026 (1.001-1.035); Urobilinogen,Urine <2.0 mg/dL (<2.0); WBC,Urine 3 /hpf (0-5)
--- NOTE | 2024-04-17 19:44 | XR ---
EXAMINATION TYPE: XR abdomen 1V DATE OF EXAM: 04/17/2024 7:39 PM COMPARISON: CT 04/16/2024 CLINICAL INDICATION: Male, 53 years old with history of abdominal distention; [facility] TECHNIQUE: One radiographic view of the abdomen was obtained. FINDINGS: Gaseous dilation of bowel throughout the abdomen. Extensive surgical changes in the spine a ppear intact. Right midlung platelike atelectasis. Mild degeneration changes of hips with osteophyte formation of the acetabulum. No evidence of fracture. IMPRESSION: 1. Gaseous distention throughout the bowel in the abdomen correlate for ileus. 2. Extensive surgical changes the spine appear intact. [facility], , 04/17/2024 7:42 PM
[2024-04-18] MEDS: polyethylene glycoL 3350 17 GM POWD.PACK PO SCH (07:38)
[2024-04-18 08:36] LABS: Basophils # (A) 0.02 X 10*3/uL (0.00-0.10); Basophils % (A) 0.2 %; Eosinophils # (A) 0.03 X 10*3/uL (0.04-0.35); Eosinophils % (A) 0.3 %; HCT 28.4 % (39.6-50.0); HGB 8.4 g/dL (13.0-17.0); Lymphocytes # (A) 0.55 X 10*3/uL (0.90-5.00); MCH 22.8 pg (27.0-32.0); MCHC 29.6 g/dL (32.0-37.0); Mean Platelet Volume 9.7 FL (9.5-12.2); Monocytes # (A) 0.72 X 10*3/uL (0.20-1.00); Monocytes % (A) 6.5 %; NRBC Per 100 WBC 0 X 10*3/uL (0.00-0.01); Neutrophils # (A) 9.69 X 10*3/uL (1.80-7.70); Neutrophils % (A) 87.3 %; Platelet Count 306 X 10*3/uL (140-440); RBC 3.69 X 10*6/uL (4.40-5.60); RDW 18.4 % (11.5-14.5); WBC 11.09 X 10*3/uL (4.50-10.00)
[2024-04-18 08:54] LABS: BUN/Creat Ratio 13.91 Ratio (12.00-20.00); Blood Urea Nitrogen 15.3 mg/dL (9.0-27.0); Calcium 8.6 mg/dL (8.7-10.3); Chloride 105 mmol/L (96-109); Glucose 108 mg/dL (70-110); Potassium 3.6 mmol/L (3.5-5.5); Sodium 137 mmol/L (135-145)
--- NOTE | 2024-04-18 10:46 | XR ---
EXAMINATION TYPE: XR chest 2V DATE OF EXAM: 04/18/2024 CLINICAL INDICATION: Male, 53 years old with history of hypoxia, TECHNIQUE: Frontal and lateral views of the chest are obtained. COMPARISON: Chest x-ray January 30, 2024 FINDINGS: There is bibasilar opacities. The cardiac silhouette size is stable and within normal brian its. Surgical changes right shoulder is partially imaged similar to prior. There is new surgical keen ges in the lumbar spine partially imaged IMPRESSION: Patchy bibasilar acute infiltrates and/or atelectasis. [facility], , 04/18/2024 10:44 AM
--- NOTE | 2024-04-18 13:02 | P.PN ---
Subjective Progress Note Date: 04/18/24 Principal diagnosis: Chronic pain, history of [id number] decomression/fusion, open treatment L3 fracture Patient was evaluated today at bedside, he is lying in his hospital bed. Patient states he is doing a lot better today. He was able to get up to the chair and ambulate in the miguel. I did place the patient on IV Tylenol, IV Toradol and oral Lyrica yesterday. Urinary catheter was placed yesterday. Patient denies any radicular symptoms to the lower extremities at this time. Patient also had multiple bowel movements yesterday. He denies any loss of bowel function at this time. He denies any numbness or tingling to the genital or perineal region currently. Objective - Vital Signs Vital signs: Vital Signs Temp 98.8 F 04/18/24 06:55 Pulse 105 H 04/18/24 06:55 Resp 16 04/18/24 08:00 BP 104/71 04/18/24 06:55 Pulse Ox 91 L 04/18/24 06:55 FiO2 Intake & Output 04/17/24 04/18/24 04/18/24 18:59 06:59 18:59 Intake Total 358 Output Total 450 Balance -92 Intake: Oral 358 Output: Urine 450 Straight 450 Other: Voiding Method External Catheter Indwelling Catheter Indwelling Catheter # Bowel Movements 1 1 - Exam Gen: AOx3, NAD VSS stable at this time Integument: Thoracolumbar incision is well-healed in the midline region, there is no openings in the skin. There is no erythema, areas of soft tissue swelling, ecchymosis Palpation: Tenderness with palpation to the paraspinal muscles in the lower thoracic and lumbar region. ROM: Full range of motion in all major muscle groups of the bilateral upper and lower extremities Senory exam to light touch is intact C5-T1 Senosry exam to light touch is intact L2-S Motor: 5/5 strength appreciated in the bilateral upper extremities with shoulder elevation, shoulder abduction, elbow extension, elbow flexion, wrist extension, wrist flexion, supervisor general 4/5 strength in the bilateral lower extremities with hip flexion, knee exte nsion, knee flexion plantarflexion, dorsiflexion, EHL, FHL Reflexes: 2/4 in all UE and LE Negative Mansi's bilaterally Negative clonus bilaterally - Labs CBC & Chem 7: 04/18/24 04:53 04/18/24 04:53 Labs: Abnormal Lab Results - Last 24 Hours (Table) 04/17/24 04/18/24 04/18/24 Range/Units 17:35 04:53 04:53 WBC 11.09 H (4.50-10.00) X 10*3/uL RBC 3.69 L (4.40-5.60) X 10*6/uL Hgb 8.4 L (13.0-17.0) g/dL Hct 28.4 L (39.6-50.0) % MCV 77.0 L (80.0-97.0) FL MCH 22.8 L (27.0-32.0) pg MCHC 29.6 L (32.0-37.0) g/dL RDW 18.4 H (11.5-14.5) % Immature Gran # 0.08 H (0.00-0.04) X 10*3/uL Neutrophils # 9.69 H (1.80-7.70) X 10*3/uL Lymphocytes # 0.55 L (0.90-5.00) X 10*3/uL Eosinophils # 0.03 L (0.04-0.35) X 10*3/uL Carbon Dioxide 20.0 L (21.6-31.8) mmol/L Calcium 8.6 L (8.7-10.3) mg/dL Urine Protein Trace H (Negative) Urine RBC 12 H (0-5) /hpf Urine Bacteria Occasional H (None) /hpf Urine Mucus Few H (None) /hpf Assessment and Plan Assessment: History of revision [id number] decompression and fusion, open treatment L3 fracture Chronic back pain Urinary retention Muscles spasms, thoracolumbar Multiple medical comorbidities Plan: Plan: Pain control, I do long discussed question today with the patient regarding the medications that are available. I advised him that we should continue to try to avoid the IV narcotics along with limiting the Valium. I did change the Valium to 1 oral tablet every 12 hours instead of IV every 6 hours. Recommend continuing the Tylenol and Toradol, plan would be to discharge on oral Tylenol and oral naproxen. Patient normally takes Percocet and Flexeril at home. Would also discussed the possibility of utilizing Lyrica at discharge if needed.. GI and DVT prophylaxis per primary medical service Recommending PT/OT evaluation Weight-bear as tolerated, would recommend use of walker or cane. No bending, lifting, twisting over 20 pounds Other medical specialty recommendations appreciated Will continue to follow patient during hospital stay Time with Patient: Less than 30
--- NOTE | 2024-04-18 16:05 | P.PN ---
Subjective Progress Note Date: 04/18/24 This is a pleasant 53-year-old male with medical history significant for acid reflux, hyperlipidemia, migraines, peripheral neuropathy, anxiety, marijuana use. Patient is a former smoker. Patient is also had multiple orthopedic surgeries with his most recent 1 being in January 2024 patient underwent rev ision T10 through pelvis decompression and fusion with open treatment of L3 fracture stabilization and revision of instrumentation. Patient had been doing relatively well at home. He states that over the weekend he rented a hotel room with his states that "they did the deed multiple times," and since then he has been unable to essentially ambulate and now having excruciating back pain. He states at rest the pain is currently a 7 out of 10 is a sharp spasm-like pain in the mid back. When the back is spasming he states that the pain goes to a 30 out of 10. He denies any loss of bladder or bowel. He states that his left foot is chronically numb since his prior back surgery. He was admitted to the hospital with consult placed to Dr. Holland for evaluation. White blood cell count is 11.7, hemoglobin 9.2, sodium 139, potassium 3.5, BUN of 18 creatinine of 0.88, phosphorus 1.5. While in the ER patient received a dose of IV push Toradol, IV push Dilaudid and IV push Valium. 04/17/2024 Patient evaluated in follow up on the medical floor. Thoracic lumbar CT reveals extensive fusion changes with laminectomy hardware appears intact fluid is identified within the laminectomy bed likely representing a seroma there is superior endplate erosion involving the L3 left particular screw again fracture versus periprosthetic lucency involving the T10 vertebral body along the super ior lateral aspect with extension into the pedicle. back pain is not any better. He states yesterday he was able to roll, today his back is spasming when attempting.The pain is radiating into the front of the thighs now. He has not had BM 3 days and feels distended. He has bowel sounds and is passing gas. He is having urinary retention. An abdominal xray will be ordered. We will also order a fleet enema. 04/18/2024 Patient evaluated in follow-up in the medical floor. He did work with physical therapy to he was able to get up and ambulate some. He does report some improvement in his back discomfort. He continues on a combination of IV Toradol oral Percocet oral Tylenol as well as Flexeril and Valium was transition to oral. He has had multiple bowel movements and his abdomen is soft with normal active bowel sounds. Although his abdominal x-ray does reveal ileus he has had multiple bowel movement since this was taken. He had indwelling Rosa catheter placed secondary to retention and we will try a voiding trial today as he is no longer constipated. He has also been off the IV narcotics for the last 24 hours we will discontinue the Dilaudid order. Discussed with orthopedics who will plan for discharge home tomorrow patient is able to tolerate oral pain medications REVIEW OF SYSTEMS: CONSTITUTIONAL: No fever, no malaise, no fatigue. HEENT: No recent visual problems or hearing problems. Denied any sore throat. CARDIOVASCULAR: No chest pain, orthopnea, PND, no palpitations, no syncope. PULMONARY: No shortness of breath, no cough, no hemoptysis. GASTROINTESTINAL: No diarrhea, no nausea, no vomiting, no abdominal pain. Reports abdominal pain and constipation NEUROLOGICAL: No headaches, no weakness, no numbness. Reports muscle spasm The rest of the 14-point review of systems is negative. PHYSICAL EXAMINATION: GENERAL: The patient is alert and oriented x3, not in any acute distress. Well developed, well nourished. HEENT: Pupils are round and equally reacting to light. EOMI. No scleral icterus. No conjunctival pallor. Normocephalic, atraumatic. No pharyngeal erythema. No thyromegaly. CARDIOVASCULAR: S1 and S2 present. No murmurs, rubs, or gallops. PULMONARY: Chest is clear to auscultation, no wheezing or crackles. ABDOMEN: Soft, nontender, distended, normoactive bowel sounds. No palpable organomegaly. MUSCULOSKELETAL: No joint swelling or deformity. EXTREMITIES: No cyanosis, clubbing, or pedal edema. NEUROLOGICAL: Gross neurological examination did not reveal any focal deficits. Generalized weakness SKIN: No rashes. Assessment and plan Lower back pain and muscle spasm Recent T10 through pelvis decompression and fusion with open treatment of L3 fracture stabilization and revision of instrumentation on January 30, 2024 Urinary retention Constipation Gastroesophageal reflux Hyperlipidemia Migraines Peripheral neuropathy Anxiety Marijuana use Leukemoid reaction GI prophylaxis Full Code Plan Continue NSAID therapy Continue prn flexeril and prn valium Orthopedic spinal consultation Complete a voiding trial Bowel regimen in place PT/OT consultation Possible discharge home in the next 24 hours The impression and plan of care has been dictated by Corie Pineda Nurse Practitioner as directed. Dr. Herberth MD I have performed a history and physical examination and medical decision making of this patient, discussed the same with the dictator, and agree with the dictators assessment and plan as written, documented as a scribe. Based on total visit time, I have performed more than 50% of this visit. Objective - Vital Signs Vital signs: Vital Signs Temp 99.4 F 04/18/24 15:00 Pulse 114 H 04/18/24 15:00 Resp 16 04/18/24 15:00 BP 102/62 04/18/24 15:00 Pulse Ox 93 L 04/18/24 15:00 FiO2 Intake & Output 04/17/24 04/18/24 04/18/24 18:59 06:59 18:59 Intake Total 358 358 Output Total 450 400 Balance -92 -42 Intake: Oral 358 358 Output: Urine 450 400 Straight 450 Other: Voiding Method External Catheter Indwelling Catheter Indwelling Catheter # Bowel Movements 1 1 - Labs CBC & Chem 7: 04/18/24 04:53 04/18/24 04:53 Labs: Abnormal Lab Results - Last 24 Hours (Table) 04/17/24 04/18/24 04/18/24 Range/Units 17:35 04:53 04:53 WBC 11.09 H (4.50-10.00) X 10*3/uL RBC 3.69 L (4.40-5.60) X 10*6/uL Hgb 8.4 L (13.0-17.0) g/dL Hct 28.4 L (39.6-50.0) % MCV 77.0 L (80.0-97.0) FL MCH 22.8 L (27.0-32.0) pg MCHC 29.6 L (32.0-37.0) g/dL RDW 18.4 H (11.5-14.5) % Immature Gran # 0.08 H (0.00-0.04) X 10*3/uL Neutrophils # 9.69 H (1.80-7.70) X 10*3/uL Lymphocytes # 0.55 L (0.90-5.00) X 10*3/uL Eosinophils # 0.03 L (0.04-0.35) X 10*3/uL Carbon Dioxide 20.0 L (21.6-31.8) mmol/L Calcium 8.6 L (8.7-10.3) mg/dL Urine Protein Trace H (Negative) Urine RBC 12 H (0-5) /hpf Urine Bacteria Occasional H (None) /hpf Urine Mucus Few H (None) /hpf Assessment and Plan Time with Patient: Less than 30
[2024-04-19 07:56] VITALS: PULSE 100
[2024-04-19] MEDS ORDERED: ACETAMINOPHEN TAB 325 MG TAB PO PRN (09:50)
[2024-04-19] MEDS: diazePAM 5 MG TAB PO PRN (09:54)
--- NOTE | 2024-04-19 12:01 | P.PN ---
Subjective Progress Note Date: 04/19/24 Principal diagnosis: Chronic pain, history of [id number] decomression/fusion, open treatment L3 fracture Patient was evaluated today at bedside, he is lying in his hospital bed. Patient has continued to improve with his overall symptoms. He denies any loss of bowel function at this time. He denies any numbness or tingling to the genital or perineal region currently. Objective - Vital Signs Vital signs: Vital Signs Temp 98.2 F 04/19/24 07:00 Pulse 100 04/19/24 07:00 Resp 17 04/19/24 07:00 BP 123/72 04/19/24 07:00 Pulse Ox 97 04/19/24 07:00 FiO2 Intake & Output 04/18/24 04/19/24 04/19/24 18:59 06:59 18:59 Intake Total 598 118 Output Total 950 Balance -352 118 Intake: Oral 598 118 Output: Urine 950 Other: Voiding Method Indwelling Catheter Toilet Urinal # Voids 2 - Exam Gen: AOx3, NAD VSS stable at this time Integument: Thoracolumbar incision is well-healed in the midline region, there is no openings in the skin. There is no erythema, areas of soft tissue swelling, ecchymosis Palpation: Tenderness with palpation to the paraspinal muscles in the lower thoracic and lumbar region. ROM: Full range of motion in all major muscle groups of the bilateral upper and lower extremities Senory exam to light touch is intact C5-T1 Senosry exam to light touch is intact L2-S Motor: 5/5 strength appreciated in the bilateral upper extremities with shoulder elevation, shoulder abduction, elbow extension, elbow flexion, wrist extension, wrist flexion, it infrastructure manager 4/5 strength in the bilateral lower extremities with hip flexion, knee extension, knee flexion plantarflexion, dorsiflexion, EHL, FHL Reflexes: 2/4 in all UE and LE Negative Mansi's bilaterally Negative clonus bilaterally - Labs CBC & Chem 7: 04/18/24 04:53 04/18/24 04:53 Assessment and Plan Assessment: History of revision [id number] decompression and fusion, open treatment L3 fracture Chronic back pain Urinary retention Muscles spasms, thoracolumbar Multiple medical comorbidities Plan: Plan: Pain control, patient can resume his Percocet and Flexeril at home. I will also prescribe Lyrica and naproxen. I advised also continuing oral Tylenol GI and DVT prophylaxis per primary medical service Recommending PT/OT evaluation Weight-bear as tolerated, would recommend use of walker or cane. No bending, lifting, twisting over 20 pounds Other medical specialty recommendations appreciated Patient does have scheduled follow-up with Dr. Holland in early May, recommend continuing with that appointment. Time with Patient: Less than 30
[2024-04-19 14:01] VITALS: BP 133/82; RESP 16; TEMP 99.1
--- NOTE | 2024-04-22 08:52 | P.DS ---
Providers Date of admission: 04/16/24 06:51 Attending physician: Salma Raines Consults: 04/16/24 06:46 Consult Physician Routine Consulting Provider: Hilario Holland Consult Reason/Comments: known Do you want consulting provider notified?: Yes 04/17/24 17:03 Consult Physician Routine Consulting Provider: Ovidio Gonzalez Consult Reason/Comments: Retention Do you want consulting provider notified?: Yes Primary care physician: Reginald Wesley [place] Hospital Course: Final Diagnosis Lower back pain and muscle spasm Recent T10 through pelvis decompression and fusion with open treatment of L3 fracture stabilization and revision of instrumentation on January 30, 2024 Urinary retention Constipation Gastroesophageal reflux Hyperlipidemia Migraines Peripheral neuropathy Anxiety Marijuana use Leukemoid reaction Discharge Disposition Patient stable for discharge home. Patient will continue on Lyrica 150 mg twice daily for 14 days. Patient will continue on naproxen twice daily as needed for pain. Patient will continue 2 weeks of Flomax therapy. He will continue all other same home medications. Patient will follow-up with his PCP Dr. Wesley in 1 to 2 days and is recommended to follow-up with Dr. Holland in 3 weeks. Hospital Course This is a pleasant 53-year-old male with medical history significant for acid reflux, hyperlipidemia, migraines, peripheral neuropathy, anxiety, marijuana u se. Patient is a former smoker. Patient is also had multiple orthopedic surgeries with his most recent 1 being in January 2024 patient underwent revision T10 through pelvis decompression and fusion with open treatment of L3 fracture stabilization and revision of instrumentation. Patient had been doing relatively well at home. He states that over the weekend he rented a hotel room with his states that "they did the deed multiple times," and since then he has been unable to essentially ambulate and now having excruciating back pain. He states at rest the pain is currently a 7 out of 10 is a sharp spasm-like pain in the mid back. When the back is spasming he states that the pain goes to a 30 out of 10. He denies any loss of bladder or bowel. He states that his left foot is chronically numb since his prior back surgery. He was admitted to the hospital with consult placed to Dr. Holland for evaluation. White blood cell count is 11.7, hemoglobin 9.2, sodium 139, potassium 3.5, BUN of 18 creatinine of 0.88, phosphorus 1.5. While in the ER patient received a dose of IV push Toradol, IV push Dilaudid and IV push Valium. Thoracic lumbar CT reveals extensive fusion changes with laminectomy hardware appears intact fluid is identified within the laminectomy bed likely representing a seroma there is superior endplate erosion involving the L3 left particular screw again fracture versus periprosthetic lucency involving the T10 vertebral body along the superior lateral aspect with extension into the pedicle. back pain is not any better. He states yesterday he was able to roll, today his back is spasming when attempting.The pain is radiating into the front of the thighs now. He has not had BM 3 days and feels distended. He has bowel sounds and is passing gas. He is having urinary retention. Although his abdominal x-ray does reveal ileus he has had multiple bowel movement since this was taken. He had indwelling Rosa catheter placed secondary to retention since been removed and he is having multiple bowel movements. He was kept overnight and monitored he is no longer requiring IV pain medications. He has been able to get up and ambulate with physical therapy. His urinary catheter has been discontinued and he is urinating without difficulty. He will be discharged home. Please see medication reconciliation for a list of current medications. Thank you for allowing us to participate in the care of this patient. The impression and plan of care has been dictated by Corie Pineda, Nurse Practitioner as directed. Dr. Herberth MD I have performed a history and physical examination and medical decision making of this patient, discussed the same with the dictator, and agree with the dictators assessment and plan as written, documented as a scribe. Based on total visit time, I have performed more than 50% of this visit. Patient Condition at Discharge: Fair Plan - Discharge Summary Discharge Rx Participant: No New Discharge Prescriptions: New Pregabalin [Lyrica] 150 mg PO BID 14 Days #30 cap Naproxen 500 mg PO BID PRN #30 tab PRN Reason: Pain Tamsulosin [Flomax] 0.4 mg PO PC-SUPPER #14 cap Continue SUMAtriptan succinate [Imitrex] 50 mg PO DAILY PRN PRN Reason: Migraine Headache Famotidine [Pepcid] 20 mg PO BID oxyCODONE-APAP 5-325MG [Percocet 5-325 mg] 1 tab PO HS Vitamin C (Unknown Dose) 1 tab PO DAILY Pantoprazole Sodium [Protonix] 40 mg PO DAILY Fenofibrate [Lofibra] 160 mg PO DAILY Terbinafine [LamISIL] 250 mg PO DAILY Vitamin D (Unknown Dose) 1 tab PO DAILY Cyclobenzaprine [Flexeril] 10 mg PO TID Discharge Medication List SUMAtriptan succinate [Imitrex] 50 mg PO DAILY PRN 12/12/17 [History] Pantoprazole Sodium [Protonix] 40 mg PO DAILY 04/16/21 [History] Fenofibrate [Lofibra] 160 mg PO DAILY 02/01/23 [History] Terbinafine [LamISIL] 250 mg PO DAILY 01/28/24 [History] Cyclobenzaprine [Flexeril] 10 mg PO TID 04/16/24 [History] Famotidine [Pepcid] 20 mg PO BID 04/16/24 [History] Vitamin C (Unknown Dose) 1 tab PO DAILY 04/16/24 [History] Vitamin D (Unknown Dose) 1 tab PO DAILY 04/16/24 [History] oxyCODONE-APAP 5-325MG [Percocet 5-325 mg] 1 tab PO HS 04/16/24 [History] Naproxen 500 mg PO BID PRN #30 tab 04/19/24 [Rx] Pregabalin [Lyrica] 150 mg PO BID 14 Days #30 cap 04/19/24 [Rx] Tamsulosin [Flomax] 0.4 mg PO PC-SUPPER #14 cap 04/19/24 [Rx] Follow up Appointment(s)/Referral(s): [facility], [NON-STAFF] - As Needed Reginald Wesley DO [Primary Care Provider] - 1-2 days Hilario Holland DO [Doctor of Osteopathic Medicine] - 3 Weeks Patient Instructions/Handouts: Acute Low Back Pain (ED) Activity/Diet/Wound Care/Special Instructions: Continue flomax for 2 more weeks. Discharge Disposition: HOME SELF-CARE
== END 2024-04-19 16:06 | disposition home or self-care (01) ==
LOC: EC 05:15 → 6NMEDSUR 06:50 → INTOOBSV 06:51 → OBSVTOIN 06:51 → 6NMEDSUR 11:14 → UNDODISIN 04-19 16:06
PROVIDERS: ADMIT Hospitalist; ATTEND Hospitalist
DX: M62.830 Muscle spasm of back (principal); K56.7 Ileus, unspecified; D72.823 Leukemoid reaction; E78.5 Hyperlipidemia, unspecified; G89.29 Other chronic pain; K21.9 Gastro-esophageal reflux disease without esophagitis; K59.00 Constipation, unspecified; R33.8 Other retention of urine; G62.9 Polyneuropathy, unspecified; F41.9 Anxiety disorder, unspecified; F12.90 Cannabis use, unspecified, uncomplicated; G43.909 Migraine, unspecified, not intractable, without status migrainosus; Z79.891 Long term (current) use of opiate analgesic; Z79.899 Other long term (current) drug therapy; Z88.6 Allergy status to analgesic agent; Z91.048 Other nonmedicinal substance allergy status; Z90.49 Acquired absence of other specified parts of digestive tract; Z87.19 Personal history of other diseases of the digestive system; Z87.891 Personal history of nicotine dependence; Z98.1 Arthrodesis status; Z98.890 Other specified postprocedural states
CPT/HCPCS: 96376 ×5; 96361 ×5; 96366 ×3; 96367; 96372 ×3; 96375 ×2; 96365; 99285; 36415; 97161; 97530; 97166; 80053; 80048; 83735 ×3; 84100; 85025 ×3; 81001; 71046; 74018; 72128; 72131; G0378 ×4; J3360 ×2; J2405; J1650 ×3; J1171 ×2; J3475 ×2; J0131 ×2; J1885 ×4

== ENCOUNTER 2024-04-23 06:59 | Emergency (ER) | payer MEDICARE ==
[2024-04-23 07:05] VITALS: RESP 20; TEMP 97.8
--- NOTE | 2024-04-23 07:52 | ED ---
General Adult HPI - General Chief complaint: Back Pain/Injury Stated complaint: Back Pain Time Seen by Provider: 04/23/24 07:15 Source: patient Mode of arrival: EMS Limitations: no limitations - History of Present Illness Initial comments: Dictation was produced using [employer] dictation software. please excuse any grammatical, word or spelling errors. Chief Complaint: 53-year-old male with chronic pain presents to the emergency department with back and abdominal pain History of Present Illness: Patient is a 53-year-old male with chronic back pain. Patient states that his back pain today has been ongoing for the last couple days. Has history of back surgery. Since January when he had his back surgery he has been having on and off symptoms. Last couple days states that his back pain is associate with abdominal pain. States that his pain today feels rather atypical. Does complain of poor appetite denies any constitutional symptoms. Recently admitted earlier this week for pain control. Reports chronic left foot numbness. The ROS documented in this emergency department record has been reviewed and confirmed by me. Those systems with pertinent positive or negative responses have been documented in the HPI. All other systems are other negative and/or noncontributory. - Related Data Home Medications Medication Instructions Recorded Confirmed SUMAtriptan succinate [Imitrex] 50 mg PO DAILY PRN 12/12/17 04/16/24 Pantoprazole Sodium [Protonix] 40 mg PO DAILY 04/16/21 04/16/24 Fenofibrate [Lofibra] 160 mg PO DAILY 02/01/23 04/16/24 Terbinafine [LamISIL] 250 mg PO DAILY 01/28/24 04/16/24 Cyclobenzaprine [Flexeril] 10 mg PO TID 04/16/24 04/16/24 Famotidine [Pepcid] 20 mg PO BID 04/16/24 04/16/24 Vitamin C (Unknown Dose) 1 tab PO DAILY 04/16/24 04/16/24 Vitamin D (Unknown Dose) 1 tab PO DAILY 04/16/24 04/16/24 oxyCODONE-APAP 5-325MG [Percocet 1 tab PO HS 04/16/24 04/16/24 5-325 mg] Previous Rx's Medication Instructions Recorded Naproxen 500 mg PO BID PRN #30 tab 04/19/24 Pregabalin [Lyrica] 150 mg PO BID 14 Days #30 cap 04/19/24 Tamsulosin [Flomax] 0.4 mg PO PC-SUPPER #14 cap 04/19/24 Allergies Allergy/AdvReac Type Severity Reaction Status Date / Time adhesive Allergy Rash/Hives Verified 04/23/24 07:01 aspirin AdvReac Nausea Verified 04/23/24 07:01 wine spirit AdvReac Unknown Verified 04/23/24 07:01 Review of Systems ROS Statement: Those systems with pertinent positive or pertinent negative responses have been documented in the HPI. ROS Other: All systems not noted in ROS Statement are negative. Past Medical History Past Medical History: GERD/Reflux, Hyperlipidemia Additional Past Medical History / Comment(s): Frequent migraine headaches especially w/stressful situations. Pain and burning down both legs.resolved since 1st surgery. History of Any Multi-Drug Resistant Organisms: None Reported Past Surgical History: Cholecystectomy, Hernia Repair, Orthopedic Surgery Additional Past Surgical History / Comment(s): multiple back surgeries X3, right shoulder sx, wrist sx, hernia repair, colonoscopy Past Anesthesia/Blood Transfusion Reactions: No Reported Reaction Additional Past Anesthesia/Blood Transfusion Reaction / Comment(s): No previous blood transfusions Past Psychological History: Anxiety Smoking Status: Former smoker Past Alcohol Use History: None Reported Past Drug Use History: None Reported - Past Family History Mother Family Medical History: No Reported History General Exam - General Exam Comments Initial Comments: PHYSICAL EXAM: General Impression: Alert and oriented x3, not in acute distress HEENT: Normocephalic atraumatic, extra-ocular movements intact, pupils equal and reactive to light bilaterally, mucous membranes moist. Cardiovascular: Heart regular rate and rhythm Chest: Able to complete full sentences, no retractions, no tachypnea Abdomen: abdomen soft, non-tender, non-distended, no organomegaly Musculoskeletal: Pulses present and equal in all extremities, no peripheral edema Motor: no focal deficits noted Neurological: CN II-XII grossly intact, no focal motor or sensory deficits noted Skin: Intact with no visualized rashes Psych: Normal affect and mood Limitations: no limitations Course Vital Signs 04/23/24 07:01 Temperature 97.8 F Pulse Rate 91 Respiratory 20 Rate Blood Pressure 133/92 O2 Sat by Pulse 97 Oximetry EKG Findings - EKG Comments: EKG Findings:: My EKG interpretation: Ventricular rate 96, sinus rhythm,. 114, QRS 88, QTc 421. No NV prolongation, no QTC prolongation, no ST or T-wave changes noted. Overall, this EKG is unremarkable Medical Decision Making - Medical Decision Making Was pt. sent in by a medical professional or institution (, PA, LAPIDARIST, urgent care, hospital, or usp...) When possible be specific @ -No Did you speak to anyone other than the patient for history (EMS, parent, family, police, friend...)? What history was obtained from this source @ -No Did you review nursing and triage notes (agree or disagree)? Why? @ -I reviewed and agree with nursing and triage notes Were old charts reviewed (outside hosp., previous admission, EMS record, old EKG, old radiological studies, urgent care reports/EKG's, usp records)? Report findings @ -No old charts were reviewed Differential Diagnosis (chest pain, altered mental status, abdominal pain women, abdominal pain men, vaginal bleeding, musculoskeletal, weakness, fever, dyspnea, syncope, headache, dizziness, GI bleed, back pain, seizure, CVA, palpatations, mental health)? @ -Differential Back Pain: Strain, zoster, cauda equina syndrome, epidural abscess, vertebral osteomyelitis, discitis, fracture, subluxation, disc herniation, DJD, spinal stenosis, dissection, AAA, pancreatitis, peptic ulcer disease, pyelonephritis, kidney stone, this is not meant to be an all-inclusive list. EKG interpreted by me (3pts min.). @ -See above X-rays interpreted by me (1pt min.). @ -None done CT interpreted by me (1pt min.). @ -CT abdomen pelvis shows no acute processes U/S interpreted by me (1pt. min.). @ -None done What testing was considered but not performed or refused? (CT, X-rays, U/S, labs)? Why? @ -None What meds were considered but not given or refused? Why? @ -None Was smoking cessation discussed for >3mins.? @ -No Were there social determinants of health that impacted care today? How? (Homelessness, low income, unemployed, alcoholism, drug addiction, transportation, low edu. Level, literacy, decrease access to med. care, shelter, rehab)? @ -No Was there de-escalation of care discussed even if they declined (Discuss DNR or withdrawal of care, Hospice)? DNR status @ -No What co-morbidities impacted this encounter? (DM, HTN, Smoking, COPD, CAD, Cancer, CVA, ARF, Chemo, Hep., AIDS, mental health diagnosis, sleep apnea, morbid obesity)? @ -Chronic back pain Was patient admitted / discharged? Hospital course, mention meds given and route, prescriptions, significant lab abnormalities, going to OR and other pertinent info. @ -53-year-old male presents with acute on chronic back pain. Vital signs stable. Patient is no high risk features. Labs imaging shows no acute process es. Patient states his pain is too bad to go home. Attempts were made to try and push his appointments up however on successful after calling the office. Patient will be admitted consultation to spine surgery. Did you discuss the management of the patient with other professionals (professionals i.e. , PA, LAPIDARIST, lab, RT, psych nurse, child protective services social worker, tobacco sample puller, teacher, mortgage loan officer, correctional casework specialist)? Give summary @ -No Was critical care preformed (if so, how long)? @ -No Undiagnosed new problem with uncertain prognosis? @ -No Drug Therapy requiring intensive monitoring for toxicity (Heparin, Nitro, Insulin, Cardizem)? @ -No Were any procedures done? @ -No Diagnosis/symptom? Acute, or Chronic, or Acute on Chronic? Uncomplicated (without systemic symptoms) or Complicated (systemic symptoms)? @ -Intractable back pain Side effects of treatment? @ -No Exacerbation, Progression, or Severe Exacerbation? @ -No Poses a threat to life or bodily function? How? (Chest pain, USA, OR, pneumonia, PE, COPD, DKA, ARF, appy, cholecystitis, CVA, Diverticulitis, Homicidal, Suicidal, threat to staff... and all critical care pts) @ -yes - Lab Data Result diagrams: 04/23/24 08:02 04/23/24 08:02 Lab Results 04/23/24 04/23/24 Range/Units 08:02 08:02 WBC 8.2 (3.8-10.6) k/uL RBC 3.88 L (4.30-5.90) m/uL Hgb 8.6 L (13.0-17.5) gm/dL Hct 29.0 L (39.0-53.0) % MCV 74.8 L (80.0-100.0) fL MCH 22.2 L (25.0-35.0) pg MCHC 29.7 L (31.0-37.0) g/dL RDW 18.4 H (11.5-15.5) % Plt Count 362 (150-450) k/uL MPV 10.0 Neutrophils % 74 % Lymphocytes % 15 % Monocytes % 7 % Eosinophils % 1 % Basophils % 0 % Neutrophils # 6.0 (1.3-7.7) k/uL Lymphocytes # 1.2 (1.0-4.8) k/uL Monocytes # 0.6 (0-1.0) k/uL Eosinophils # 0.1 (0-0.7) k/uL Basophils # 0.0 (0-0.2) k/uL Manual Slide Review Performed Hypochromasia Marked Poikilocytosis Slight Anisocytosis Slight Microcytosis Moderate Sodium 136 L (137-145) mmol/L Potassium 4.7 (3.5-5.1) mmol/L Chloride 107 (98-107) mmol/L Carbon Dioxide 21 L (22-30) mmol/L Anion Gap 8 mmol/L BUN 10 (9-20) mg/dL Creatinine 0.60 L (0.66-1.25) mg/dL Est GFR (CKD-EPI)AfAm >90 (>60 ml/min/1.73 sqM) Est GFR (CKD-EPI)NonAf >90 (>60 ml/min/1.73 sqM) Glucose 108 H (74-99) mg/dL Calcium 8.1 L (8.4-10.2) mg/dL Total Bilirubin 0.9 (0.2-1.3) mg/dL AST 51 (17-59) U/L ALT 18 (4-49) U/L Alkaline Phosphatase 109 (38-126) U/L Total Protein 6.0 L (6.3-8.2) g/dL Albumin 3.2 L (3.5-5.0) g/dL Lipase 34 (23-300) U/L Disposition Clinical Impression: Intractable back pain Disposition: ADMITTED IP TO THIS HOSP Condition: Good Referrals: [facility], [NON-STAFF] - 1-2 days (Physical therapy is scheduled for 04/24.) Reginald Wesley DO [Primary Care Provider] - 05/01/24 1:15 pm (This appointment is with the LAPIDARIST Debra. ) Hilario Holland DO [Doctor of Osteopathic Medicine] - 05/09/24 2:15 pm Decision Time: 10:51
[2024-04-23] MEDS: SODIUM CHLORIDE 0.9% 1,000 ML IV STA (07:57)
[2024-04-23] MEDS: HYDROmorphone 1 MG/ML 1 ML SYRINGE IVP STA (07:57)
[2024-04-23] MEDS: ONDANSETRON 4 MG/2 ML VIAL IVP STA (07:58)
[2024-04-23 08:26] LABS: ALT 18 U/L (4-49); African American GFR (CKD) >90 (>60 ml/min/1.73 sqM); Albumin 3.2 g/dL (3.5-5.0); Anion Gap 8 mmol/L; Blood Urea Nitrogen 10 mg/dL (9-20); Calcium 8.1 mg/dL (8.4-10.2); Carbon Dioxide 21 mmol/L (22-30); Chloride 107 mmol/L (98-107); Glucose 108 mg/dL (74-99); Lipase 34 U/L (23-300); Non-African American GFR(CKD) >90 (>60 ml/min/1.73 sqM); Sodium 136 mmol/L (137-145); Total Bilirubin 0.9 mg/dL (0.2-1.3)
[2024-04-23 08:30] LABS: AST 51 U/L (17-59); Alkaline Phosphatase 109 U/L (38-126); Potassium 4.7 mmol/L (3.5-5.1)
[2024-04-23 08:36] LABS: Anisocytosis Slight; Basophils % (A) 0 %; Eosinophils # (A) 0.1 k/uL (0-0.7); Eosinophils % (A) 1 %; HGB 8.6 gm/dL (13.0-17.5); Hypochromasia Marked; Lymphocytes # (A) 1.2 k/uL (1.0-4.8); Lymphocytes % (A) 15 %; MCH 22.2 pg (25.0-35.0); MCHC 29.7 g/dL (31.0-37.0); MCV 74.8 fL (80.0-100.0); Microcytosis Moderate; Monocytes # (A) 0.6 k/uL (0-1.0); Monocytes % (A) 7 %; Neutrophils % (A) 74 %; Platelet Count 362 k/uL (150-450); Poikilocytosis Slight; RBC 3.88 m/uL (4.30-5.90); RDW 18.4 % (11.5-15.5); WBC 8.2 k/uL (3.8-10.6)
--- NOTE | 2024-04-23 09:07 | CT ---
EXAMINATION TYPE: CT abdomen pelvis w con DATE OF EXAM: 04/23/2024 8:59 AM COMPARISON: CT abdomen pelvis most recent from 04/16/2024 CLINICAL INDICATION: Male, 53 years old with history of back and epigastric abdominal pain; BACK AND EPIGASRIC ABDOMINAL PAIN TECHNIQUE: Axial CT abdomen pelvis w con;Sagittal and coronal reformats were created on a separate w orkstation. Contrast used:100ML mL of Isovue 300 with IV Contrast, (none if empty) Oral contrast used: without Oral Contrast (none if empty) CT DLP: 1457.8 mGycm, Automated exposure control for dose reduction was used. FINDINGS: LOWER CHEST: Small bilateral pleural effusions. ABDOMEN LIVER: Unremarkable GALLBLADDER AND BILE DUCTS: Gallbladder surgically absent with possible small cystic duct remnant wit h surgical clip present. PANCREAS: Unremarkable. SPLEEN: Unremarkable. ADRENAL GLANDS: Unremarkable. KIDNEYS AND URETERS: No evidence of hydronephrosis or renal calculus. The ureters are unremarkable. PELVIS BLADDER: No evidence for wall thickening or mass given limitations of exam. REPRODUCTIVE: Unremarkable. ABDOMEN & PELVIS STOMACH AND BOWEL: No evidence of bowel obstruction. The cecum is flipped up medially and superiorly basilic gas. PERITONEUM/RETROPERITONEUM: No evidence of pneumoperitoneum or free fluid. VASCULATURE: Mild atherosclerotic calcifications are present throughout the abdominal aorta and its b ranches. No evidence of aortic aneurysm. MUSCULOSKELETAL: No acute osseous abnormalities extensive hardware in the spine appears intact. LYMPH NODES: No gross evidence for lymphadenopathy. SOFT TISSUE/ABDOMINAL WALL: Fat-containing inguinal hernias. IMPRESSION: 1. No evidence for acute abdominal process. 2. Extensive hardware in the spine appears intact. 3. Small bilateral pleural effusion. 4. Cholecystectomy changes. 5. Fat-containing inguinal hernias bilaterally. [facility], , 04/23/2024 9:04 AM
[2024-04-23] MEDS ORDERED: NALOXONE 0.4 MG/ML 1 ML VIAL IV PRN (10:45)
[2024-04-23] MEDS ORDERED: ACETAMINOPHEN TAB 325 MG TAB PO PRN (10:45)
[2024-04-23] MEDS: SODIUM CHLORIDE 0.9% 1,000 ML IV SCH (11:08)
[2024-04-23] MEDS: oxyCODONE-APAP 5-325MG 1 EACH TAB PO PRN (11:08)
--- NOTE | 2024-04-23 11:20 | ED ---
Medical Decision Making - Medical Decision Making I was notified by Ceci of case management that patient case was discussed over the phone with Dr. Chavez along with Dr. Holland given that there was concern for unneeded hospital admission. They requested that patient be discharged since he does not meet any admission criteria despite reports of his back pain being intractable and receiving multiple IV pain medications. Patient and at the bedside are upset however understand the thought process especially with leadership being involved. Patient has poor social situation. Repeat visits to the ER risk is high. Patient does have repeat appointments. Attempt was made to move his appointments up however after speaking with Dr. Holland s office and primary care physician's office. They did not have any available slots in order to move his appointments up. At time of discharge patient did appear to be in significant distress. - Lab Data Result diagrams: 04/23/24 08:02 04/23/24 08:02 Lab Results 04/23/24 04/23/24 Range/Units 08:02 08:02 WBC 8.2 (3.8-10.6) k/uL RBC 3.88 L (4.30-5.90) m/uL Hgb 8.6 L (13.0-17.5) gm/dL Hct 29.0 L (39.0-53.0) % MCV 74.8 L (80.0-100.0) fL MCH 22.2 L (25.0-35.0) pg MCHC 29.7 L (31.0-37.0) g/dL RDW 18.4 H (11.5-15.5) % Plt Count 362 (150-450) k/uL MPV 10.0 Neutrophils % 74 % Lymphocytes % 15 % Monocytes % 7 % Eosinophils % 1 % Basophils % 0 % Neutrophils # 6.0 (1.3-7.7) k/uL Lymphocytes # 1.2 (1.0-4.8) k/uL Monocytes # 0.6 (0-1.0) k/uL Eosinophils # 0.1 (0-0.7) k/uL Basophils # 0.0 (0-0.2) k/uL Manual Slide Review Performed Hypochromasia Marked Poikilocytosis Slight Anisocytosis Slight Microcytosis Moderate Sodium 136 L (137-145) mmol/L Potassium 4.7 (3.5-5.1) mmol/L Chloride 107 (98-107) mmol/L Carbon Dioxide 21 L (22-30) mmol/L Anion Gap 8 mmol/L BUN 10 (9-20) mg/dL Creatinine 0.60 L (0.66-1.25) mg/dL Est GFR (CKD-EPI)AfAm >90 (>60 ml/min/1.73 sqM) Est GFR (CKD-EPI)NonAf >90 (>60 ml/min/1.73 sqM) Glucose 108 H (74-99) mg/dL Calcium 8.1 L (8.4-10.2) mg/dL Total Bilirubin 0.9 (0.2-1.3) mg/dL AST 51 (17-59) U/L ALT 18 (4-49) U/L Alkaline Phosphatase 109 (38-126) U/L Total Protein 6.0 L (6.3-8.2) g/dL Albumin 3.2 L (3.5-5.0) g/dL Lipase 34 (23-300) U/L Disposition Clinical Impression: Intractable back pain Disposition: HOME SELF-CARE Condition: Fair Prescriptions: oxyCODONE HCL/ACETAMINOPHEN [Percocet 5-325 mg] 1 tab PO Q6HR PRN 3 Days #12 tab PRN Reason: Pain Is patient prescribed a controlled substance at d/c from ED?: Yes If prescribed controlled substance>3 days was MAPS reviewed?: Prescribed <3 Days Referrals: [facility], [NON-STAFF] - 1-2 days (Physical therapy is scheduled for 04/24.) Reginald Wesley DO [Primary Care Provider] - 05/01/24 1:15 pm (This appointment is with the GREEN BUILDING MATERIALS DESIGNER Debra. ) Hilario Holland DO [Doctor of Osteopathic Medicine] - 05/09/24 2:15 pm Time of Disposition: 11:19
[2024-04-23 11:53] VITALS: BP 154/93; PULSE 99
== END 2024-04-23 11:53 | disposition home or self-care (01) ==
LOC: EC 06:59 → UNDOADMOB 10:49 → 4SSUR 10:49 → EC 11:53
DX: G89.29 Other chronic pain (principal); M54.89 Other dorsalgia; Z87.891 Personal history of nicotine dependence; Z91.048 Other nonmedicinal substance allergy status; Z88.6 Allergy status to analgesic agent
CPT/HCPCS: 99285; 96374; 96375; 96361 ×2; 36415; 93005; 80053; 83690; 85025; 74177; J2405; J1171; Q9967

== ENCOUNTER 2024-05-11 16:55 | Inpatient (IN) | payer MEDICARE, OTHER ==
[2024-05-11 18:39] LABS: Anisocytosis Moderate; Basophils % (A) 0 %; Eosinophils # (A) 0.3 k/uL (0-0.7); Eosinophils % (A) 2 %; HCT 36.3 % (39.0-53.0); HGB 10.5 gm/dL (13.0-17.5); Hypochromasia Marked; Lymphocytes # (A) 1.7 k/uL (1.0-4.8); Lymphocytes % (A) 11 %; MCH 21.3 pg (25.0-35.0); MCV 73.5 fL (80.0-100.0); Mean Platelet Volume 7.4; Microcytosis Moderate; Monocytes # (A) 0.5 k/uL (0-1.0); Monocytes % (A) 3 %; Neutrophils % (A) 83 %; RBC 4.93 m/uL (4.30-5.90); WBC 15.6 k/uL (3.8-10.6)
[2024-05-11 18:53] LABS: Platelet Count 925 k/uL (150-450)
[2024-05-11] MEDS: SODIUM CHLORIDE 0.9% 1,000 ML IV ONE (19:15)
[2024-05-11] MEDS: ORPHENADRINE 30 MG/ML 2 ML VIAL IVP STA (19:17)
[2024-05-11] MEDS: KETOROLAC 15 MG/ML 1 ML VIAL IVP STA (19:17)
[2024-05-11 19:34] LABS: ALT 14 U/L (4-49); AST 25 U/L (17-59); African American GFR (CKD) 89 (>60 ml/min/1.73 sqM); Albumin 3.9 g/dL (3.5-5.0); Alkaline Phosphatase 134 U/L (38-126); Anion Gap 10 mmol/L; Blood Urea Nitrogen 28 mg/dL (9-20); Calcium 9.2 mg/dL (8.4-10.2); Carbon Dioxide 22 mmol/L (22-30); Chloride 106 mmol/L (98-107); Glucose 101 mg/dL (74-99); Non-African American GFR(CKD) 77 (>60 ml/min/1.73 sqM); Potassium 4.6 mmol/L (3.5-5.1); Sodium 138 mmol/L (137-145); Total Bilirubin 0.5 mg/dL (0.2-1.3); Total Protein 6.7 g/dL (6.3-8.2)
[2024-05-11] MEDS ORDERED: NALOXONE 0.4 MG/ML 1 ML VIAL IV PRN (20:20)
[2024-05-11] MEDS ORDERED: ACETAMINOPHEN TAB 325 MG TAB PO PRN (20:20)
--- NOTE | 2024-05-11 20:25 | ED ---
General Adult HPI - General Chief complaint: Back Pain/Injury Stated complaint: back pain Time Seen by Provider: 05/11/24 18:00 Source: patient, RN notes reviewed, old records reviewed Mode of arrival: wheelchair - History of Present Illness Initial comments: Patient is a 53-year-old male with history of known chronic back issues with multiple surgeries with Dr. Holland. He has a known seroma near his surgical site and states that in the past this is caused significant pain. Has been having this pain since April 16. He has been having with this pain symptoms of lower extremity intermittent weakness. Denies any bowel or bladder incontinence or retention. Denies any saddle paresthesias. Is on pain medications at home but apparently has a hard time controlling any pain. Had an MRI ordered by his PCP today and when he went to go do it, the pain was worse which is why he presented for evaluation in the ER as he cannot lay still for the MRI. Apparently patient has been dealing with this pain for nearly a month at this time with no significant change. He has not been seen by Dr. Piña since since his last admission. Presents for further evaluation at this time.Ambulates with a walker at baseline. - Related Data Home Medications Medication Instructions Recorded Confirmed SUMAtriptan succinate [Imitrex] 50 mg PO DAILY PRN 12/12/17 05/11/24 Pantoprazole Sodium [Protonix] 40 mg PO DAILY 04/16/21 05/11/24 Fenofibrate [Lofibra] 160 mg PO DAILY 02/01/23 05/11/24 Terbinafine [LamISIL] 250 mg PO DAILY 01/28/24 05/11/24 Famotidine [Pepcid] 20 mg PO BID 04/16/24 05/11/24 Vitamin C (Unknown Dose) 1 tab PO DAILY 04/16/24 05/11/24 Vitamin D (Unknown Dose) 1 tab PO DAILY 04/16/24 05/11/24 Naproxen 500 mg PO BID-W/MEALS PRN 05/11/24 05/11/24 Rosuvastatin [Crestor] 10 mg PO HS 05/11/24 05/11/24 fentaNYL 25MCG/HR PATCH [Duragesic 25 mcg TRANSDERM Q72H 05/11/24 05/11/24 25MCG/HR] methocarbamoL [Robaxin-750] 1,500 mg PO TID PRN 05/11/24 05/11/24 oxyCODONE-APAP 7.5-325MG [Percocet 1 tab PO Q6HR PRN 05/11/24 05/11/24 7.5-325 mg] Previous Rx's Medication Instructions Recorded Pregabalin [Lyrica] 150 mg PO BID 14 Days #30 cap 04/19/24 Allergies Allergy/AdvReac Type Severity Reaction Status Date / Time adhesive Allergy Rash/Hives Verified 05/11/24 20:57 aspirin AdvReac Nausea Verified 05/11/24 20:57 wine spirit AdvReac Unknown Verified 05/11/24 20:57 Review of Systems ROS Statement: Those systems with pertinent positive or pertinent negative responses have been documented in the HPI. Review of Systems: CONST: Denies fever EYES: Denies blurry vision ENT: Denies nasal congestion C/V: Denies Chest pain RESP: Denies shortness of breath GI: Denies abdominal pain : Denies dysuria SKIN: Denies rash. MSK: Endorses acute on chronic back pain NEURO: Denies headache ROS Other: All systems not noted in ROS Statement are negative. Past Medical History Past Medical History: GERD/Reflux, Hyperlipidemia Additional Past Medical History / Comment(s): Frequent migraine headaches especially w/stressful situations. Pain and burning down both legs.resolved since 1st surgery. History of Any Multi-Drug Resistant Organisms: None Reported Past Surgical History: Cholecystectomy, Hernia Repair, Orthopedic Surgery Additional Past Surgical History / Comment(s): multiple back surgeries X5, right shoulder sx, wrist sx, hernia repair, colonoscopy Past Anesthesia/Blood Transfusion Reactions: No Reported Reaction Additional Past Anesthesia/Blood Transfusion Reaction / Comment(s): No previous blood transfusions Past Psychological History: Anxiety Smoking Status: Former smoker Past Alcohol Use History: None Reported Past Drug Use History: None Reported - Past Family History Mother Family Medical History: No Reported History General Exam - General Exam Comments Initial Comments: General: Appears in mild to moderate distress secondary to back pain HEAD: Normal with no signs of head trauma. EYES: PERRLA, EOMI, conjunctiva normal, no discharge. Pupils are 2 mm and equal bilaterally. ENT: Hearing grossly intact, normal oropharynx. RESPIRATORY: Clear breath sounds bilaterally. No wheezes, rales, or rhonchi. C/V: Regular rate and rhythm. S1 and S2 auscultated, no edema, peripheral pulses 2+ and intact throughout ABD: Abd is soft, nontender, nondistended EXT: Normal range of motion, no obvious deformity no midline cervical or thoracic spine tenderness to palpation. Right-sided paraspinal muscle tenderness to palpation of the lumbar spine as well as midline lumbar spine t enderness to palpation. No obvious deformities appreciated. No obvious complications from prior surgery appreciated. SKIN: Well-healing surgical site of the spine. NEURO: Alert and oriented x 4. Patient has bilateral lower extremity weakness which she states is secondary to pain. This does seem to be a chronic issue for the patient. No sensory deficits. No obvious focal deficits. All symptoms seem to be somewhat chronic. Course Vital Signs 05/11/24 05/11/24 17:16 18:30 Temperature 98 F Pulse Rate 109 H 88 Respiratory 18 17 Rate Blood Pressure 123/88 130/83 O2 Sat by Pulse 97 98 Oximetry Medical Decision Making - Medical Decision Making Was pt. sent in by a medical professional or institution (, PA, [employer], urgent care, hospital, or usp...) When possible be specific @ -No Did you speak to anyone other than the patient for history (EMS, parent, family, police, friend...)? What history was obtained from this source @ -Patient's helps with the patient's extensive past medical history. Did you review nursing and triage notes (agree or disagree)? Why? @ -I reviewed and agree with nursing and triage notes Were old charts reviewed (outside hosp., previous admission, EMS record, old EKG, old radiological studies, urgent care reports/EKG's, usp records)? Report findings @ -Old charts reviewed including the CT from April 2024 which revealed the seroma. Recent surgery in January 2024. This was with Dr. Piña's and for his spine for similar complaint. Differential Diagnosis (chest pain, altered mental status, abdominal pain women, abdominal pain men, vaginal bleeding, weakness, fever, dyspnea, syncope, headache, dizziness, GI bleed, back pain, seizure, CVA, palpatations, mental health, musculoskeletal)? @ -Differential Back Pain: Strain, zoster, cauda equina syndrome, epidural abscess, vertebral osteomyelitis, discitis, fracture, subluxation, disc herniation, DJD, spinal stenosis, dissection, AAA, pancreatitis, peptic ulcer disease, pyelonephritis, kidney stone, this is not meant to be an all-inclusive list. EKG interpreted by me (3pts min.). @ -None done X-rays interpreted by me (1pt min.). @ -None done CT interpreted by me (1pt min.). @ -None done U/S interpreted by me (1pt. min.). @ -None done What testing was considered but not performed or refused? (CT, X-rays, U/S, labs)? Why? @ -None What meds were considered but not given or refused? Why? @ -None Did you discuss the management of the patient with other professionals (professionals i.e. Dr., PA, [employer], lab, RT, psych nurse, psychotherapist social worker, parachute/combatant diver officer, teacher, chief procurement officer, case picker)? Give summary @ -Discussed at length the patient with his surgeon, Dr. Holland. He did not order the MRIs, but states that if PCP would like to obtain the MRIs he is okay with the patient be evaluated and will follow along. He does not believe this is a cervical issue but will review the imaging and provide consultation. Otherwise was in agreement the plan for admission. Discussed the case with the admitting provider, Dr. Doherty who accepted the admission. Was smoking cessation discussed for >3mins.? @ -No Was critical care preformed (if so, how long)? @ -No Were there social determinants of health that impacted care today? How? (Homelessness, low income, unemployed, alcoholism, drug addiction, transportation, low edu. Level, literacy, decrease access to med. care, halfway, rehab)? @ -No Was there de-escalation of care discussed even if they declined (Discuss DNR or withdrawal of care, Hospice)? DNR status @ -No What co-morbidities impacted this encounter? (DM, HTN, Smoking, COPD, CAD, Cancer, CVA, ARF, Chemo, Hep., AIDS, mental health diagnosis, sleep apnea, morbid obesity)? @ -Multiple spine surgeries and chronic back pain Was patient admitted / discharged? Hospital course, mention meds given and ro anil, prescriptions, significant lab abnormalities, going to OR and other pertinent info. @ -Patient presents with chronic back pain. He believes that the seroma that was seen on CT a month ago is causing it. Vital signs are remarkable for mild tachycardia likely secondary to pain. He is requesting for analgesia medications patient will be given Norflex and Toradol. Patient be started on IV fluids. We discussed at length options for the patient. Patient could attempt to go home and obtain outpatient MRI. Patient be transferred to another facility for evaluation by spine surgery. Patient can be admitted to our facility for evaluation by his surgeon Dr. Holland. I have low concern for cauda equina syndrome at this time, as symptoms have been chronic for the patient and need as had these chronic episodes of back pain for over a year. Therefore patient will be empirically started on IV steroids. I did reach out to the patient's surgeon who was in agreement if patient was to be admitted to admit the patient to medicine and he will follow along as a child development consultant. Patient did elect to be admitted to our facility for evaluation by surgeon. Basic labs obtained which showed likely a reactive leukocytosis but no other obvious findings. Patient's pain did improve with Norflex. He will be admitted for MRI. Patient was placed on Decadron. I spoke with the admitting provider, Dr. Doherty of [facility] who accepted the admission. Undiagnosed new problem with uncertain prognosis? @ -No Drug Therapy requiring intensive monitoring for toxicity (Heparin, Nitro, Insulin, Cardizem)? @ -No Were any procedures done? @ -No Diagnosis/symptom? @ -Acute on chronic back pain, postoperative seroma Acute, or Chronic, or Acute on Chronic? @ -Acute on chronic Uncomplicated (without systemic symptoms) or Complicated (systemic symptoms)? @ -Complicated Side effects of treatment? @ -No Exacerbation, Progression, or Severe Exacerbation? @ -No Poses a threat to life or bodily function? How? (Chest pain, USA, VT, pneumonia, PE, COPD, DKA, ARF, appy, cholecystitis, CVA, Diverticulitis, Homicidal, Suicidal, threat to staff... and all critical care pts) @ -Potentially, yes - Lab Data Result diagrams: 05/11/24 18:10 05/11/24 19:14 Lab Results 05/11/24 05/11/24 Range/Units 18:10 19:14 WBC 15.6 H (3.8-10.6) k/uL RBC 4.93 (4.30-5.90) m/uL Hgb 10.5 L (13.0-17.5) gm/dL Hct 36.3 L (39.0-53.0) % MCV 73.5 L (80.0-100.0) fL MCH 21.3 L (25.0-35.0) pg MCHC 29.0 L (31.0-37.0) g/dL RDW 20.0 H (11.5-15.5) % Plt Count 925 H D (150-450) k/uL MPV 7.4 Neutrophils % 83 % Lymphocytes % 11 % Monocytes % 3 % Eosinophils % 2 % Basophils % 0 % Neutrophils # 13.0 H (1.3-7.7) k/uL Lymphocytes # 1.7 (1.0-4.8) k/uL Monocytes # 0.5 (0-1.0) k/uL Eosinophils # 0.3 (0-0.7) k/uL Basophils # 0.0 (0-0.2) k/uL Manual Slide Review Performed Hypochromasia Marked Anisocytosis Moderate Microcytosis Moderate Sodium 138 (137-145) mmol/L Potassium 4.6 (3.5-5.1) mmol/L Chloride 106 (98-107) mmol/L Carbon Dioxide 22 (22-30) mmol/L Anion Gap 10 mmol/L BUN 28 H (9-20) mg/dL Creatinine 1.08 (0.66-1.25) mg/dL Est GFR (CKD-EPI)AfAm 89 (>60 ml/min/1.73 sqM) Est GFR (CKD-EPI)NonAf 77 (>60 ml/min/1.73 sqM) Glucose 101 H (74-99) mg/dL Calcium 9.2 (8.4-10.2) mg/dL Total Bilirubin 0.5 (0.2-1.3) mg/dL AST 25 (17-59) U/L ALT 14 (4-49) U/L Alkaline Phosphatase 134 H (38-126) U/L Total Protein 6.7 (6.3-8.2) g/dL Albumin 3.9 (3.5-5.0) g/dL Disposition Clinical Impression: Chronic back pain, Postoperative seroma Disposition: ADMITTED IP TO THIS [facility] Condition: Stable Time of Disposition: 20:00
[2024-05-11] MEDS: SODIUM CHLORIDE 0.9% 1,000 ML IV SCH (20:44)
[2024-05-11] MEDS: DEXAMETHASONE SOD PHOSPHATE 10 MG/ML 1 ML VIAL IVP STA (20:44)
[2024-05-11] MEDS ORDERED: NAPROXEN 250 MG TAB PO PRN (22:51)
[2024-05-11] MEDS: HEPARIN SODIUM,PORCINE 5,000 UNIT/ML 1 ML VIAL SQ SCH (23:05)
[2024-05-11] MEDS: DEXAMETHASONE SOD PHOSPHATE 4 MG/ML 1 ML VIAL IVP SCH (23:05)
[2024-05-11] MEDS: FAMOTIDINE 20 MG TAB PO SCH (23:36)
[2024-05-11] MEDS: methocarbamoL 750 MG TAB PO PRN (23:36)
[2024-05-12] MEDS: KETOROLAC 15 MG/ML 1 ML VIAL IVP PRN (05:11)
[2024-05-12] MEDS: PREGABALIN 75 MG CAP PO SCH (08:53)
[2024-05-12] MEDS: FENOFIBRATE 160 MG TAB PO SCH (08:53)
[2024-05-12] MEDS: PANTOPRAZOLE 40 MG TABLET PO SCH (08:53)
[2024-05-12] MEDS: TERBINAFINE 250 MG TAB PO SCH (08:53)
[2024-05-12] MEDS ORDERED: VITAMIN D PO SCH (09:00)
[2024-05-12] MEDS ORDERED: VITAMIN C PO SCH (09:00)
[2024-05-12] MEDS ORDERED: FAMOTIDINE 20 MG TAB PO SCH (09:00)
[2024-05-12 09:46] LABS: BUN/Creat Ratio 22.36 Ratio (12.00-20.00); Blood Urea Nitrogen 24.6 mg/dL (9.0-27.0); Glucose 136 mg/dL (70-110)
[2024-05-12 09:47] LABS: ALT 14 U/L (10-49); AST 23 U/L (14-35); Albumin 3.8 g/dL (3.8-4.9); Albumin/Globulin Ratio 1.27 Ratio (1.60-3.17); Alkaline Phosphatase 138 U/L (41-126); Calcium 9.4 mg/dL (8.7-10.3); Carbon Dioxide 21.9 mmol/L (21.6-31.8); Chloride 107 mmol/L (96-109); Potassium 5.3 mmol/L (3.5-5.5); Sodium 139 mmol/L (135-145); Total Bilirubin <0.2 mg/dL (0.3-1.2); Total Protein 6.8 g/dL (6.2-8.2)
[2024-05-12 10:14] LABS: Basophils # (A) 0.01 X 10*3/uL (0.00-0.10); Basophils % (A) 0.1 %; Eosinophils # (A) 0.01 X 10*3/uL (0.04-0.35); Eosinophils % (A) 0.1 %; HCT 32.6 % (39.6-50.0); HGB 9.2 g/dL (13.0-17.0); Lymphocytes # (A) 0.87 X 10*3/uL (0.90-5.00); Lymphocytes % (A) 11.3 %; MCH 21.3 pg (27.0-32.0); MCHC 28.2 g/dL (32.0-37.0); MCV 75.5 FL (80.0-97.0); Mean Platelet Volume 9.4 FL (9.5-12.2); Microcytosis (M) 2+ (None Seen); Monocytes # (A) 0.05 X 10*3/uL (0.20-1.00); Monocytes % (A) 0.7 %; NRBC Per 100 WBC 0 X 10*3/uL (0.00-0.01); Neutrophils # (A) 6.72 X 10*3/uL (1.80-7.70); Neutrophils % (A) 87.5 %; Platelet Count 880 X 10*3/uL (140-440); RBC 4.32 X 10*6/uL (4.40-5.60); RDW 21.2 % (11.5-14.5); WBC 7.68 X 10*3/uL (4.50-10.00)
[2024-05-12] MEDS: ORPHENADRINE 30 MG/ML 2 ML VIAL IVP SCH (10:45)
--- NOTE | 2024-05-12 11:52 | P.CNOR ---
History of Present Illness - [facility] Consult date: 05/12/24 Consult reason: back pain History of present illness: Patient is a 53-year-old male who is well-known to our orthopedic service. Patient has had multiple back procedures over the last 3 to 4 years. Patient's most recent surgery was in January 2024, he had underwent a revision [id number] decompression and fusion with open L3 fracture treatment with revision of hardware. For good 2 months patient has been progressing well. Patient has a history of multiple falls but has resulted in worsening back pain and issues with his hardware in the past. Patient had presented to the hospital in April 2024 with regards to worsening back pain and spasms, orthopedic team had evaluated the patient at that time, he had underwent a thoracic and lumbar CT scan at that time. At that time there was no significant hardware failure the patient had progressed fairly well in the hospital with conservative measures. Patient reported back to the hospital on 05/11/2024 due to worsening back pain and spasms. Apparently his primary care doctor had ordered an MRI of both the thoracic and lumbar spine to be done on 05/11/2024, patient was unable to have that exam due to inability to lay flat, they had recommended he go to the ER for further management and workup. Patient was admitted to the internal medicine group after being evaluated by our emergency room staff. My attending physician was notified of this. MRIs of the thoracic and lumbar spine with and without contrast were ordered by the emergency room physician. Our orthopedic team was placed on consult. Patient was examined today at bedside, his was also present. Patient was very emotional on exam and seemed very uncomfortable. He had a couple of the spasm episodes while I was in the room where he was in a significant amount of discomfort. Patient is a relatively poor historian with regards to his overall symptoms and has a hard time describing these occasions. He continues to have no bowel or bladder incontinence. He denies any genital or perineal numbness or tingling. He states that his right foot has been numb for the last week or so. He states he has been dealing with numbness and tingling in the buttock region. Patient feels very unsteady when attempting to ambulate. He has been utilizing a walker. He does describe like a tripping episode where he caught himself with a walker a few days ago. He notes most of the back pain and spasming in the mid thoracic lower lumbar region. He describes no shooting pain down either lower extremity or bilateral upper extremities. Patient has been taking oxycodone 7.5 mg / 325 mg, Robaxin 1500 mg 3 times daily, Lyrica 150 mg twice daily and also fentanyl patch at home. He states none of these medications are providing him any relief. He has received a dose of Norflex since being in the hospital which did allow him to relax and get some sleep he states. Patient denies any chest pain, nausea or vomiting, changes in vision pain or shortness of breath, headaches.. Review of Systems Constitutional: Reports as per HPI Past Medical History Past Medical History: GERD/Reflux, Hyperlipidemia Additional Past Medical History / Comment(s): Frequent migraine headaches especi ally w/stressful situations. Pain and burning down both legs.resolved since 1st surgery. History of Any Multi-Drug Resistant Organisms: None Reported Past Surgical History: Cholecystectomy, Hernia Repair, Orthopedic Surgery Additional Past Surgical History / Comment(s): multiple back surgeries X5, right shoulder sx, wrist sx, hernia repair, colonoscopy Past Anesthesia/Blood Transfusion Reactions: No Reported Reaction Additional Past Anesthesia/Blood Transfusion Reaction / Comm: No previous blood transfusions Past Psychological History: Anxiety Additional Psychological History / Comment(s): just placed on some new meds, hasn't been given dx. Smoking Status: Former smoker Past Alcohol Use History: None Reported Additional Past Alcohol Use History / Comment(s): Started smoking at age 16, 1/2 ppd, quit September 2019. Past Drug Use History: None Reported Additional Drug Use History / Comment(s): Hx heavy Marijuana use daily use to help with pain control - Past Family History Mother Family Medical History: No Reported History Medications and Allergies Home Medications Medication Instructions Recorded Confirmed Type SUMAtriptan succinate [Imitrex] 50 mg PO DAILY PRN 12/12/17 05/11/24 History Pantoprazole Sodium [Protonix] 40 mg PO DAILY 04/16/21 05/11/24 History Fenofibrate [Lofibra] 160 mg PO DAILY 02/01/23 05/11/24 History Terbinafine [LamISIL] 250 mg PO DAILY 01/28/24 05/11/24 History Famotidine [Pepcid] 20 mg PO BID 04/16/24 05/11/24 History Vitamin C (Unknown Dose) 1 tab PO DAILY 04/16/24 05/11/24 History Vitamin D (Unknown Dose) 1 tab PO DAILY 04/16/24 05/11/24 History Pregabalin [Lyrica] 150 mg PO BID 14 Days #30 cap 04/19/24 05/11/24 Rx Naproxen 500 mg PO BID-W/MEALS PRN 05/11/24 05/11/24 History Rosuvastatin [Crestor] 10 mg PO HS 05/11/24 05/11/24 History fentaNYL 25MCG/HR PATCH [Duragesic 25 mcg TRANSDERM Q72H 05/11/24 05/11/24 History 25MCG/HR] methocarbamoL [Robaxin-750] 1,500 mg PO TID PRN 05/11/24 05/11/24 History oxyCODONE-APAP 7.5-325MG [Percocet 1 tab PO Q6HR PRN 05/11/24 05/11/24 History 7.5-325 mg] Allergies Allergy/AdvReac Type Severity Reaction Status Date / Time adhesive Allergy Rash/Hives Verified 05/11/24 20:57 aspirin AdvReac Nausea Verified 05/11/24 20:57 wine spirit AdvReac Unknown Verified 05/11/24 20:57 Physical Examination Gen: AOx3, NAD VSS stable at this time Integument: posterior thoracic/lumbar incision is well-healed. There are no openings in the skin noted, no lesions, no areas of erythema no areas of fluctuance a ppreciated Palpation: Patient is very hypersensitive and pain is reproduced with palpation along the paravertebral muscles in the thoracic or lumbar region ROM: Full range of motion all major muscle groups of the bilateral upper extremities, no focal deficit Patient demonstrated difficulty with hip flexion bilaterally, knee extension and knee flexion were intact, this did reproduce discomfort in his back. Plantarflexion, dorsiflexion, EHL, FHL are intact Sensory Exam: Senory exam to light touch is intact C5-T1 Senosry exam to light touch is intact L2-S1 to light touch defect appreciated in the right foot Motor: 5/5 strength appreciate the bilateral upper extremities with shoulder elevation, shoulder abduction, elbow extension, elbow flexion, wrist extension, wrist flexion, physical medicine specialist 3/5 strength appreciated bilateral lower extremities with hip flexion 3+/5 strength appreciated bilateral lower extremities with knee extension, knee flexion, dorsiflexion, EHL 4-/5 strength appreciated bilateral lower EXTR with plantarflexion, FHL Reflexes: 2/4 in all UE and LE Negative Mansi's bilaterally Negative clonus bilaterally Results - Labs Labs: Abnormal Lab Results - Last 24 Hours (Table) 05/11/24 05/11/24 05/12/24 Range/Units 18:10 19:14 04:28 WBC 15.6 H (3.8-10.6) k/uL RBC 4.32 L (4.40-5.60) X 10*6/uL Hgb 10.5 L 9.2 L (13.0-17.5) gm/dL Hct 36.3 L 32.6 L (39.0-53.0) % MCV 73.5 L 75.5 L (80.0-100.0) fL MCH 21.3 L 21.3 L (25.0-35.0) pg MCHC 29.0 L 28.2 L (31.0-37.0) g/dL RDW 20.0 H 21.2 H (11.5-15.5) % Plt Count 925 H D 880 H (150-450) k/uL MPV 9.4 L (9.5-12.2) FL Neutrophils # 13.0 H (1.3-7.7) k/uL Lymphocytes # 0.87 L (0.90-5.00) X 10*3/uL Monocytes # 0.05 L (0.20-1.00) X 10*3/uL Eosinophils # 0.01 L (0.04-0.35) X 10*3/uL Microcytosis (manual) 2+ A (None Seen) BUN 28 H (9-20) mg/dL BUN/Creatinine Ratio (12.00-20.00) Ratio Glucose 101 H (74-99) mg/dL Total Bilirubin (0.3-1.2) mg/dL Alkaline Phosphatase 134 H (38-126) U/L Albumin/Globulin Ratio (1.60-3.17) Ratio 05/12/24 Range/Units 04:28 WBC (3.8-10.6) k/uL RBC (4.40-5.60) X 10*6/uL Hgb (13.0-17.5) gm/dL Hct (39.0-53.0) % MCV (80.0-100.0) fL MCH (25.0-35.0) pg MCHC (31.0-37.0) g/dL RDW (11.5-15.5) % Plt Count (150-450) k/uL MPV (9.5-12.2) FL Neutrophils # (1.3-7.7) k/uL Lymphocytes # (0.90-5.00) X 10*3/uL Monocytes # (0.20-1.00) X 10*3/uL Eosinophils # (0.04-0.35) X 10*3/uL Microcytosis (manual) (None Seen) BUN (9-20) mg/dL BUN/Creatinine Ratio 22.36 H (12.00-20.00) Ratio Glucose 136 H (74-99) mg/dL Total Bilirubin <0.2 L (0.3-1.2) mg/dL Alkaline Phosphatase 138 H (38-126) U/L Albumin/Globulin Ratio 1.27 L (1.60-3.17) Ratio H & H 05/11/24 05/12/24 Range/Units 18:10 04:28 Hgb 10.5 L 9.2 L (13.0-17.5) gm/dL Hct 36.3 L 32.6 L (39.0-53.0) % Result Diagrams: 05/12/24 04:28 05/12/24 04:28 Assessment and Plan Assessment: History of revision [id number] decompression and fusion, open treatment L3 fracture Chronic back pain Muscles spasms, thoracolumbar Bilateral lower extremity weakness Multiple medical comorbidities Plan: I was able to discuss the case, this to include physical exam findings and imaging studies and my attending Dr. Holland Await results of patient's thoracic/lumbar MRI Pain control, continue with current medications. DVT prophylaxis per primary medical service Further recommendations to follow up Time with Patient: Less than 30
--- NOTE | 2024-05-12 15:10 | MR ---
EXAMINATION TYPE: MR lumbar spine wo con DATE OF EXAM: 05/12/2024 1:21 PM COMPARISON: MRI 08/01/2023 , CT 04/16/2024 CLINICAL INDICATION: Male, 53 years old with history of back pain, multiple surgeries, TECHNIQUE: Multiplanar, multisequence images of the lumbar spine were acquired. IV Contrast: mL (None, if empty) FINDINGS: Multiple pulse sequences were attempted. Sagittal plain images are nondiagnostic. Axial bing in imaging is extremely limited to nondiagnostic. IMPRESSION: 1. Nondiagnostic MRI lumbar spine. [facility], , 05/12/2024 3:07 PM
--- NOTE | 2024-05-12 15:16 | MR ---
EXAMINATION TYPE: MR thoracic spine wo/w con DATE OF EXAM: 05/12/2024 1:22 PM COMPARISON: None. CLINICAL INDICATION: Male, 53 years old with history of back pain, multiple surgeries, TECHNIQUE: Multiplanar, multiecho imaging on a 3.0 Cyndi magnet is performed through the thoracic spi ne. IV Contrast: 8 mL Gadobutrol (None, if empty) FINDINGS: The upper thoracic spine including T1-T9 is reviewed. Disc heights appear preserved prevert ebral body heights are preserved. A hemangioma is present T4. No spinal canal stenosis evident. Verte bral body heights appear preserved. T6-7: There is a small central disc herniation with mild anterior thecal sac impression. Some cord de formity is present although no cord contact is evident during the exam. No AP spinal canal stenosis. Some minimal syrinx may be present at T3-4 level. Below the T9 level exam is nondiagnostic with significant susceptibility artifact present. Axial and sagittal imaging through these levels do not visualize the spinal canal. Postcontrast imaging is no suspicious enhancement. IMPRESSION: 1. Small central disc herniation T6-7 with mild anterior thecal sac compression. Some cord deformity is present although no spinal canal stenosis or cord contact is evident during this exam. 2. There may be a minimal syrinx present at approximately the T3-4 disc level. 3. Exam is nondiagnostic below the T9 level due to significant metallic susceptibility artifact. [facility], , 05/12/2024 3:14 PM
[2024-05-12] MEDS: ATORVASTATIN 20 MG TAB PO SCH (21:55)
--- NOTE | 2024-05-12 23:17 | HP ---
HISTORY AND PHYSICAL CHIEF COMPLAINT: Back pain and radiculopathy and numbness. HISTORY OF PRESENT ILLNESS: This is a 53-year-old gentleman with a past medical history of multiple medical issues including low back pain and multiple back surgeries, being followed by Dr. Holland and Dr. Wesley in the outpatient, who is complaining of back pain, radiating to the lower legs and some radiculopathy also. The patient also complained numbness of the right leg for 2 weeks. The patient also had a previous history of seroma. There is no history of any fever, rigors, or chills at this time. PAST MEDICAL HISTORY: Reviewed and includes back pain, multiple surgeries, migraine. Rest of the history and rest of the chart is also noted. HOME MEDICATIONS: Robaxin. Dose and rest of medications reviewed. ALLERGIES: Adhesives. FAMILY HISTORY: No history of heart disease or strokes in the family. SOCIAL HISTORY: History of smoking. REVIEW OF SYSTEMS: Fourteen-point review of systems negative except as mentioned earlier. PHYSICAL EXAMINATION: VITAL SIGNS: Pulse is 113, blood pressure 138/76, respiratory rate 19. HEENT: Conjunctivae normal. NECK: No JVD. CARDIOVASCULAR: S1, S2. RESPIRATIONS: Breath sounds diminished at the bases. No rhonchi, no crackles. ABDOMEN: Soft and nontender. LEGS: Movements are painful. SLR is negative. Some weakness and numbness noted. LABORATORY DATA: Reviewed. ASSESSMENT: 1. Severe low back pain, acute on chronic with radiculopathy for evaluation. 2. Elevated platelets. 3. Microcytic anemia. 4. Elevated WBC. 5. Gastroesophageal reflux disease. 6. Hyperlipidemia. 7. History of back surgery, multiple. 8. History of anxiety. RECOMMENDATIONS AND DISCUSSION: This is a 53-year-old gentleman, who presented with multiple complex issues. We will monitor the patient closely. I would recommend to continue with IV steroids. Monitor blood sugars closely. Repeat labs. Pain management. Follow up closely with Dr. Holland. MRI. Prognosis is guarded because of multiple complex medical issues. Further recommendations to follow. MMODL / IJN: [id number] /
[2024-05-13 11:08] LABS: HCT 27.3 % (39.6-50.0); HGB 7.9 g/dL (13.0-17.0); MCH 21.6 pg (27.0-32.0); MCHC 28.9 g/dL (32.0-37.0); MCV 74.6 FL (80.0-97.0); Mean Platelet Volume 10.2 FL (9.5-12.2); NRBC Per 100 WBC 0 X 10*3/uL (0.00-0.01); Platelet Count 778 X 10*3/uL (140-440); RBC 3.66 X 10*6/uL (4.40-5.60); RDW 21.8 % (11.5-14.5); WBC 11.13 X 10*3/uL (4.50-10.00)
[2024-05-13 11:48] LABS: Basophils # (A) 0.01 X 10*3/uL (0.00-0.10); Basophils % (A) 0.1 %; Eosinophils # (A) 0.02 X 10*3/uL (0.04-0.35); Eosinophils % (A) 0.2 %; Lymphocytes # (A) 1.23 X 10*3/uL (0.90-5.00); Lymphocytes % (A) 11.1 %; Monocytes # (A) 0.31 X 10*3/uL (0.20-1.00); Monocytes % (A) 2.8 %; Neutrophils # (A) 9.52 X 10*3/uL (1.80-7.70); Neutrophils % (A) 85.4 %; Schistocytes 1+ (None Seen)
[2024-05-13 11:50] LABS: ALT 10 U/L (10-49); AST 17 U/L (14-35); Albumin 3.5 g/dL (3.8-4.9); Albumin/Globulin Ratio 1.35 Ratio (1.60-3.17); Alkaline Phosphatase 108 U/L (41-126); BUN/Creat Ratio 18.44 Ratio (12.00-20.00); Blood Urea Nitrogen 16.6 mg/dL (9.0-27.0); Calcium 8.7 mg/dL (8.7-10.3); Carbon Dioxide 18.8 mmol/L (21.6-31.8); Chloride 115 mmol/L (96-109); Globulin 2.6 g/dL (1.6-3.3); Glucose 126 mg/dL (70-110); Sodium 143 mmol/L (135-145); Total Bilirubin <0.2 mg/dL (0.3-1.2); Total Protein 6.1 g/dL (6.2-8.2)
--- NOTE | 2024-05-13 16:09 | CT ---
EXAMINATION TYPE: CT thor lumbar spine wo con DATE OF EXAM: 05/13/2024 3:53 PM COMPARISON: Recent CT study 04/16/2024. CLINICAL INDICATION: Male, 53 years old with history of back pain; back pain. hx of multiple sxs TECHNIQUE: Axial images of the thoracic and lumbar spine were obtained without contrast. Coronal and sagittal reformats were performed. 3-D reformats of the bones were created on a separate workstation and submitted for review. CT Contrast: CT DLP: 1820.80 mGycm, Automated exposure control for dose reduction was used. FINDINGS: Demonstration of posterior fusion hardware spanning T10-S1 with multilevel intervertebral disc spacer devices. Previous multilevel laminectomy defects noted in the lumbar spine. There is persistent subc utaneous edema and fluid in the posterior paraspinal region likely post surgical related. Wedging of the anterior L1 vertebral body again noted. Hardware is intact without evidence of periprosthetic paco ency and stable alignment. Streak artifact limits evaluation of the spinal canal throughout the lower thoracic and lumbar spine. Osseous structures appear demineralized. Similar lucency involving the T10 vertebral body along the r ight superolateral aspect extending into the posterior elements. No evidence of high-grade spinal can al stenosis. Multilevel facet arthropathy and intervertebral disc space loss throughout the thoracic spine. No significant change in superior endplate erosion involving L3 related to left reticular scre w. Partially visualized lungs demonstrate emphysema. Trace effusions with adjacent compressive atelectas is. No acute abnormality identified in the abdomen. IMPRESSION: 1. No acute osseous abnormality. 2. Stable postsurgical changes of posterior fusion spanning T10-S1 without new periprosthetic lucenc y. [facility], , 05/13/2024 4:06 PM
--- NOTE | 2024-05-13 17:36 | P.PN ---
Progress Note - Text Progress Note Date: 05/13/24 Patient seen and examined today in his room with his . He is in incredible amounts of pain again. This all seem to start after a intimate session with his about a month and a half ago. It is not gotten any better. MRI and CT was done. MRI shows small amount of fluid collection distally. There is also question of a fracture of the proximal portion of the construct. CT scan was done which demonstrates a fracture through the T8-T9 region with migration of the screws. This is likely due to his incident. There is no other fractures noted. Alignment is otherwise relatively stable at this point besides the proximal junctional failure due to the fracture. We will plan on surgery for the patient tomorrow after office with a stabilization of infusion of this area with open reduction internal fixation fracture. I discussed the risks and benefits at length with the patient and his as well. We discussed alternatives as well as potential for nonsurgical options potential for transfer they agreed and they would like to continue with surgery at this time.
--- NOTE | 2024-05-14 00:42 | PN ---
PROGRESS NOTE DATE OF SERVICE: 05/13/2024 SUBJECTIVE: This is a 53-year-old gentleman, who was admitted with severe low back pain. He is being evaluated by Orthopedic Surgery. MRI has been done. OBJECTIVE: VITAL SIGNS: Pulse is 53, blood pressure 115/58, respirations 18. CHEST: Clear to auscultation. CARDIOVASCULAR: S1, S2. ABDOMEN: Soft. LABORATORY DATA: Hemoglobin 7.2. Rest of the labs are noted. ASSESSMENT: 1. Severe low back pain with acute on chronic radiculopathy for evaluation. 2. Elevated platelets. 3. Microcytic anemia. 4. Elevated WBC. 5. Gastroesophageal reflux disease. 6. Hyperlipidemia. 7. Multiple complex medical issues. RECOMMENDATIONS AND DISCUSSION: Recommend to continue current management and continue symptomatic treatment. Otherwise, closely follow with Dr. Holland. Guarded prognosis because of multiple complex medical issues and further recommendations to follow. MMODL / IJN: [id number] /
[2024-05-14] MEDS: PREGABALIN 75 MG CAP PO SCH (09:35)
[2024-05-14 09:59] LABS: Anisocytosis Moderate; HCT 33.2 % (39.0-53.0); HGB 9.6 gm/dL (13.0-17.5); Hypochromasia Marked; MCH 21.6 pg (25.0-35.0); MCHC 28.8 g/dL (31.0-37.0); Mean Platelet Volume 7.4; Microcytosis Moderate; Platelet Count 767 k/uL (150-450); RBC 4.43 m/uL (4.30-5.90); RDW 20.9 % (11.5-15.5); WBC 10.5 k/uL (3.8-10.6)
[2024-05-14] MEDS: KETOROLAC 15 MG/ML 1 ML VIAL IVP SCH (11:44)
[2024-05-14] MEDS: ACETAMINOPHEN IV (For NPO) 1,000 MG in EMPTY BAG 1 BAG IVPB SCH (11:45)
[2024-05-14] MEDS: MIDAZOLAM 2 MG/2 ML VIAL IV ONE (14:29)
[2024-05-14] MEDS: fentaNYL (PF) 50 MCG/ML 2 ML AMP IVP PRN (14:32)
[2024-05-14] MEDS: IV FLUID CONTINUATION 1,000 ML IV ONE (14:58)
[2024-05-14] MEDS ORDERED: TEMAZEPAM 15 MG CAP PO PRN (15:27)
[2024-05-14] MEDS ORDERED: VANCOMYCIN IV PER PHARMACY 1 EACH MISC MISCELLANE PRN ×2 (15:29→17:28)
[2024-05-14] MEDS ORDERED: TRANEXAMIC 1,000 MG/100ML-NACL 1,000 MG in SALINE 1 100ML.BAG IVPB PRN (15:31)
--- NOTE | 2024-05-14 15:40 | P.ANPRN ---
Procedure Note - Anesthesia - Invasive Line Left Arterial Line Time Out Performed: Yes Date of Procedure: 05/14/24 Time of Procedure: 14:28 Location of Patient: PreOp Preparation: Sterile Prep Arterial Line Location: Radial Ultrasound Used: Yes Purpose - Visualization and Identification of Vasculature: Yes Narrative: Invasive line placement per sterile protocol utilized.
--- NOTE | 2024-05-14 15:41 | P.ANPRN ---
Procedure Note - Anesthesia - Invasive Line Right Central Line Time Out Performed: Yes Date of Procedure: 05/14/24 Time of Procedure: 14:40 Location of Patient: PreOp Preparation: Sterile Prep Central Line Location: Internal Jugular Ultrasound Used: Yes Purpose - Visualization and Identification of Vasculature: Yes Image Stored and Saved: Yes Narrative: Invasive line placement per sterile protocol utilized.
--- NOTE | 2024-05-14 15:42 | XR ---
EXAMINATION TYPE: XR chest 1V portable DATE OF EXAM: 05/14/2024 CLINICAL INDICATION: Male, 53 years old with history of central line placement, progress study. TECHNIQUE: Single AP portable supine upright view of the chest is obtained. COMPARISON: Chest x-ray from April 18, 2024 FINDINGS: There is new right internal jugular central venous catheter terminating in SVC. No obvious pneumothorax is seen. More prominent cardiomegaly and central vascular congestion on current study. Surgical changes right shoulder is redemonstrated. Surgical change to the thoracolumbar spine is par tially imaged. IMPRESSION: No obvious pneumothorax after right-sided central catheter placement. [facility], , 05/14/2024 3:40 PM
[2024-05-14] MEDS ORDERED: VANCOMYCIN 1,250 MG in SODIUM CHLORIDE 0.9% 250 ML IVPB ONE (15:45)
--- NOTE | 2024-05-14 16:34 | P.PN ---
Progress Note - Text Progress Note Date: 05/14/24 05/14/24 BECKY MAS, SPINE RISK REVIEW [facility] PROVIDER: SAMMY May 14, 2024 4:00?PM SPINE SURGERY CLINICAL AND RISK REVIEW LOKESH MAS is a 53 YO MALE presenting for evaluation of LOW BACK AND MID THORACIC PAIN AFTER [id number] DECOMPRESSION AND FUSION WITH SUBSEQUENT INJURY TO THE AREA .. It was my pleasure to have seen and examined LOKESH MAS . HE HAS A HISTORY OF REVISIONS IN THE LUMBAR AND THORACOLUMBAR REGION. HE AND HIS WERE HAVING INTIMATE TIME AND THIS IS WHEN HE STARTING HAVING SOME ISSUES WITH HIS BACK AFTER THIS. SHE STATES HE WAS UNABLE TO WALK. HE CAME TO HOSPITAL AFTER THIS AND MEDICATIONS AND ADMISSION WAS ABLE TO MAKE HIM BETTER. HE HAS FOLLOWED UP IN OFFICE POSTOP AND WAS MUCH BETTER THAN HE IS NOW. DENIES ANY OTHER SX OR TRAUMA AT THIS TIME. In our visit today we have had a chance to go over subjective complaints, physical examination findings and treatments including the natural course history without intervention and various interventional options. The patient's imaging demonstrates the following findings: T9 FRACTURE WITH PROXIMAL JUNCTIONAL FAILURE ABOVE T9-PELVIS DECOMPRESSION AND FUSION POSSIBLE HARDWARE FAILURE T9 KYPHOSIS T9 SECONDARY TO THE FRACTURE NO LESIONS On a physical exam,LOKESH MAS demonstrates the following findings: SEVERE PAIN IN THE LOWER THORACIC AND LOWER LUMAR REGIONS. iNCREASED PAIN IN HIS LEGS NUMBNESS/TINGLING IN RLE AND LLE WHICH IS NEW FUNCTIONAL DEFICIT IN HIS LE THAT IS NEW FROM PREIVOUSLY. PAIN WITH MOTION OR ACTIVITY I have explained to the patient that as their condition progresses it will cause further neurological deficits and eventual paralysis. Based on the patients imaging, physical exam, and the rapid progression and disabling nature of their symptoms, at this time I recommend surgery in the form of a: OPEN TREATMENT OF T9 FRACTURE WITH T7-10 STABILIZATION WITH EXPLORATION AND WASHOUT. I discussed the risk and benefits of this procedure at length with LOKESH MAS . The patient has agreed to consider pursuing the procedure above mentioned. Prior to surgery, they should follow up with her PCP (Cardio, ID, IM etc) for clearance. Questions were invited and answered, and the patient wishes to proceed as outlined below. Currently, I am recommending: OPEN TREATMENT OF T9 FRACTURE WITH T7-10 STABILIZATION WITH EXPLORATION AND WASHOUT Obtain appropriate presurgical workup and clearances as discussed with the patient. Review of surgical risks and benefits as well as an educational packet on the proposed surgical procedure. Risks: All surgical procedures come with inherent risks, including those related to positioning, anesthesia, intraoperative findings, and postoperative complications. It is important to understand that surgery does not come with any guarantee of a successful outcome as complications and adverse events are always possible. The patient was given a handout in the office today discussing the surgical procedure and risks associated with the intervention, both of which were discussed with the patient. These risks include but are not limited to the following: Experiencing same, different or even worse symptoms in back, neck, arms, or legs compared to before surgery. Requiring further surgery or other forms of treatment presently or at some time in the future at same or other levels of the intended spine surgery. On an extreme but fortunately relatively rare basis severe complications such as blindness, stroke, heart attack, temporary and/or permanent nerve injury, paralysis, coma, or may occur, sometimes without known explanation. Surgical complications may include but are not limited to risk of infection, fluid accumulation in the surgical dissection site, including a seroma or hematoma, that requires additional surgery, wound drainage, bleeding, new numbness or weakness, vision changes/loss, spinal fluid leakage, non-healing and/or infected incision, headaches, difficulty or inability to swallow, hoarseness, hemopneumothorax, pneumothorax, impotence, retrograde ejaculation, vaginal dryness; injury to nerves, spinal cord, blood vessels, lymphatics or other vital organs (i.e., bowel injury, injury to the great vessels); heterotopic bone formation; complications related to the hardware such as screws, rods, cages including misplaced hardware, device failure, instrumentation at the wrong spine level, hardware fracture/breakage, or hardware loosening; vertebral failure of the spinal column above or below the newly placed hardware; retained surgical instrumentations or devices and the need for further surgery. Medical risks of the planned spine surgery include but are not limited to generalized Infections to the whole body or local areas outside of the surgical site (sepsis), heart attack, bleeding, anaphylaxis, meningitis, seizure, epilep sy, hearing loss, burn valerio, laceration of the head or other areas of the body, bruising, hypersensitivity of the skin, bladder over distension; allergic reaction; shoulder injury related to positioning; fat, blood and air clots to other areas of the body like heart, lungs, brain; failure of internal organs such as lungs, kidneys, liver and excessive bleeding. If blood transfusions are necessary, note that transfusions may cause intolerance reactions such as anaphylaxis or other complex reactions. Despite best efforts, the results of spine surgery might not heal in terms of bone, soft tissues such as skin, fascia, ligaments, and joints. Additionally, in order to achieve best possible results, spine surgery may be carried out beyond the initially planned levels and involve decompression, fusion including insertion of hardware at levels other than the original intended area of surgical interest change some portions of the procedure in order to ensure the best possible outcomes. With spine surgery and spinal fusion, there are different off label uses of instrumentation (devices, implants and hardware) as well as biological substances (bone morphogenic proteins, demineralized bone matrix) as well as using extra bone from allograft sources (i.e. cadaver bone) or autograft (iliac crest bone, ribs, or the spine itself). The patient has been given information about these practices and their inherent risks and benefits. The patient has had a chance to review all the listed information, has been given print outs detailing this information, and has had all his/her questions answered to their satisfaction. HIS IS A JAHOVAS WITNESS AND SINCE SHE SIGNED HIS CONSENT AND HE OBTAINED MEDICATIONS, SHE WILL NOT CONSENT AT THIS TIME FOR BLOOD PRODUCTS FOR HIM IN LIFE SAVING EVENT. HIS HGB IS 7.6 CURRENTLY WITHOUT ACUTE BLEEDING AND HE HAS NO SX OF LOW HGB AT THIS TIME. SHE IS CONSULTING WITH HER SABIANISM TO SEE OPTIONS. BECKY STATES HE WOULD LIKE TO PROCEED WITH BLOOD TRANSFUSIONS IF NEEDED IN EMERGENT SITUATIONS, BUT AGAIN HE RECEIVED MEDICATIONS AND SO CANNOT MAKE DECISIONS CURRENTLY. WE DISCUSSED OPTIONS INCLUDING WAITING UNTIL HE IS OF SOUND MIND TO MADE DECISIONS. ONCE THIS HAS BEEN DECIDED WE WILL DETERMINE HOW TO PROCEED WITH SURGERY. It was my pleasure to have seen and examined LOKESH MAS . In our visit today we have had a chance to go over my understanding of our patient's current condition, the natural course history without intervention and various interventional options. Questions were invited and answered, and the patient wishes to proceed as outlined above. I have seen and examined the patient for 25 minutes and we have spent more than 50% of the time in repeat and detailed counseling about the patient's condition, its natural course history without and as much as can be predicted with surgery and re-review of various surgical treatment options. In conclusion, LOKESH MAS and their family requested we proceed with the above suggested surgery and are willing to accept risks and limitations of the suggested surgery as the nature of the disease process and our best attempts at treatment for the condition. In our visit today the patient and I have had a chance to go over my understanding of their current condition, the natural course history without intervention and various interventional options. Questions were invited and answered, and the patient wishes to proceed as outlined above. I will be sure to keep you updated after the patient returns here for further follow-up. Thank you again for your referral. Please do not hesitate to contact me if you have any further questions. Signed and authenticated by: May 14, 2024 4:32?PM EDT DO Jaki Carcamo [facility] [address] [address] This document is confidential, intended only for the named recipient(s) and may contain information that is privileged or exempt from disclosure under applicable law. If you are not the intended recipient(s), you are notified that the dissemination, distribution or copying of this information is strictly prohibited. If you received this message in error, please notify the sender then delete this message.
[2024-05-14 17:59] LABS: Glucose,Whole Blood 113 mg/dL (70-110)
[2024-05-14] MEDS: VANCOMYCIN 1,500 MG in SODIUM CHLORIDE 0.9% 500 ML 500 ML IVPB ONE (18:54)
[2024-05-14] MEDS: ceFAZolin 2 GM in DEXTROSE 5% IN WATER 50 ML IVPB ONE (18:57)
[2024-05-14 19:04] LABS: % Iron Saturation 5.77 (15.00-50.00); Ferritin 70.9 ng/mL (22.0-322.0)
--- NOTE | 2024-05-15 01:45 | PN ---
PROGRESS NOTE DATE OF SERVICE: 05/14/2024 SUBJECTIVE: This is a 53-year-old gentleman, who was admitted with low back pain, acute on chronic radiculopathies, evaluated by Orthopedic Surgery for possible surgery of the T8-T9 region. No fever. No cough. OBJECTIVE: VITAL SIGNS: Pulse is 64, blood pressure 119/69, respirations 16. CHEST: Clear to auscultation. CARDIOVASCULAR: S1, S2. ABDOMEN: Soft. NERVOUS SYSTEM: Nonfocal. LABORATORY DATA: Hemoglobin 9.6, rest of the chart noted. ASSESSMENT: 1. Severe low back pain with acute on chronic radiculopathy for evaluation. 2. T8-T9 region pain. 3. Elevated platelets. 4. Microcytic anemia. 5. Elevated WBC. 6. Gastroesophageal reflux disease. 7. Hyperlipidemia. 8. Multiple complex medical issues. RECOMMENDATIONS AND DISCUSSION: Recommend to continue current management and continue symptomatic treatment. Otherwise, closely follow with Orthopedic Surgery. Also, recommend Hematology consultation and stool guaiac and further workup also. Guarded prognosis. Iron studies also will be ordered. Further recommendations to follow. MMODL / IJN: [id number] /
[2024-05-15] MEDS ORDERED: ceFAZolin 2 GM in DEXTROSE 5% IN WATER 50 ML IVPB PRN (05:00)
[2024-05-15 05:50] LABS: HGB 8.9 g/dL (13.0-17.0); Lymphocytes # (A) 1.63 10*3/uL (0.90-5.00); Lymphocytes % (A) 17.6 %; MCHC 29.7 g/dL (32.0-37.0); MCV 74.3 fL (80.0-97.0); Mean Platelet Volume 9.4 fL (9.5-12.2); Monocytes # (A) 0.49 10*3/uL (0.20-1.00); Monocytes % (A) 5.3 %; Neutrophils # (A) 7.11 10*3/uL (1.80-7.70); Neutrophils % (A) 76.8 %; Platelet Count 573 10*3/uL (140-440); RBC 4.04 10*6/uL (4.40-5.60); RDW 22.4 % (11.5-14.5); WBC 9.26 10*3/uL (4.50-10.00)
[2024-05-15] MEDS: VANCOMYCIN 1,500 MG in SODIUM CHLORIDE 0.9% 500 ML 500 ML IVPB SCH (06:14)
[2024-05-15 06:24] LABS: ALT 13 U/L (4-49); AST 15 U/L (17-59); African American GFR (CKD) >90 (>60 ml/min/1.73 sqM); Albumin 3.4 g/dL (3.5-5.0); Alkaline Phosphatase 105 U/L (38-126); Anion Gap 9 mmol/L; Blood Urea Nitrogen 25 mg/dL (9-20); Calcium 9.1 mg/dL (8.4-10.2); Carbon Dioxide 18 mmol/L (22-30); Chloride 112 mmol/L (98-107); Glucose 113 mg/dL (74-99); Non-African American GFR(CKD) >90 (>60 ml/min/1.73 sqM); Potassium 4.6 mmol/L (3.5-5.1); Sodium 139 mmol/L (137-145); Total Bilirubin 0.4 mg/dL (0.2-1.3); Total Protein 6.2 g/dL (6.3-8.2)
[2024-05-15 07:50] LABS: INR 1.1 (<1.2); Prothrombin Time 11.6 sec (10.0-12.5)
[2024-05-15 08:13] LABS: Anisocytosis (M) Present; Hypersegmented Neutrophils Present; Poikilocytosis (M) Present
[2024-05-15] MEDS ORDERED: GLYCOPYRROLATE 0.2 MG/ML 2 ML VIAL ONE (12:19)
[2024-05-15] MEDS ORDERED: HYDROmorphone (PF) 1 MG/ML ONE (12:19)
[2024-05-15] MEDS ORDERED: SUCCINYLCHOLINE CHLORIDE 200 MG/10 ML VIAL IV ONE (12:19)
[2024-05-15] MEDS ORDERED: NEOSTIGMINE 1 MG/ML 10 ML VIAL ONE (12:19)
[2024-05-15] MEDS ORDERED: KETAMINE HCL IN 0.9 % NACL 50 MG/5 ML SYRINGE ONE (12:19)
[2024-05-15] MEDS ORDERED: ROCURONIUM 10 MG/ML (5 ML VIAL) IV ONE (12:19)
[2024-05-15] MEDS ORDERED: PROPOFOL 10 MG/ML 20 ML VIAL IV ONE (12:19)
[2024-05-15] MEDS ORDERED: MIDAZOLAM 2 MG/2 ML VIAL ONE (12:19)
[2024-05-15] MEDS ORDERED: DEXAMETHASONE SOD PHOSPHATE 4 MG/ML 1 ML VIAL ONE (12:19)
[2024-05-15] MEDS ORDERED: TRANEXAMIC 1,000 MG/100ML-NACL PREMIX BAG ONE (12:19)
[2024-05-15] MEDS ORDERED: ONDANSETRON 4 MG/2 ML VIAL ONE (12:19)
[2024-05-15] MEDS ORDERED: fentaNYL (PF) 50 MCG/ML 2 ML AMP ONE (12:19)
[2024-05-15] MEDS ORDERED: PHENYLEPHRINE 10 MG/ML VIAL ONE (12:19)
[2024-05-15] MEDS ORDERED: LIDOCAINE 1% INJ 10MG/ML (20 ML MDV) ONE (12:19)
[2024-05-15] MEDS: LACTATED RINGERS 1,000 ML IV ONE (12:22)
[2024-05-15] MEDS: THROMBIN (BOVINE) 5,000 UNIT VIAL MISCELLANE ONE (13:30)
[2024-05-15] MEDS: GENTAMICIN 80 MG in SODIUM CHLORIDE 0.9% IRRIGATIO 3,000 ML IRRIGATION ONE (13:43)
[2024-05-15] MEDS: ceFAZolin 3,000 MG in SODIUM CHLORIDE 0.9% IRRIGATIO 3,000 ML IRRIGATION ONE (13:43)
--- NOTE | 2024-05-15 14:58 | P.CN ---
Psychiatric Consult - . Consult date: 05/15/24 Consult:: 05/15/24 14:43 IDENTIFYING DATA: This patient is a 53-year-old male REASON FOR REFERRAL: Psychiatry was consulted for SI HISTORY OF PRESENT ILLNESS: The patient presented to the hospital with chief complaint of back pain. Patient reportedly made suicidal comments yesterday however he later regretted this, stating this is more of an expression than legitimate thoughts. Patient reportedly is a Caodaism and has been refusing blood transfusion. Patient was off the unit receiving infusion when securities underwriter attempted assessment and thus we will reassess again tomorrow. PAST PSYCHIATRIC HISTORY: Unable to obtain PAST MEDICAL HISTORY: GERD, dyslipidemia, migraines. ALLERGIES: as per EMR. CHEMICAL DEPENDENCY HISTORY: as per HPI. FAMILY PSYCHIATRIC/SUBSTANCE USE HISTORY: Unable to obtain SOCIAL HISTORY: Unable to obtain MENTAL STATUS EXAM: Unable to obtain IMPRESSIONS: Unspecified mood disorder PLAN: -Unable to assess patient as he was in surgery, will reassess again tomorrow -Communicated plan to patient's nurse -Will continue to follow along
[2024-05-15] MEDS: VANCOMYCIN 1,000 MG VIAL MISCELLANE ONE (15:00)
--- NOTE | 2024-05-15 15:36 | XR ---
Fluoroscopy INDICATION: Pain FINDINGS: Fluoroscopy time: 1 minute 0 seconds. Total dose area product (DAP) in uGy*m?, mGy*cm? (or similar): 9.4938 Images obtained: 8. Images document thoracic fixation IMPRESSION: 1. Documentation of fluoroscopy. [facility], , 05/15/2024 3:33 PM
--- NOTE | 2024-05-15 16:03 | FL ---
EXAMINATION TYPE: FL guidance operating room DATE OF EXAM: 05/15/2024 CLINICAL INDICATION: Male, 53 years old with history of THORACIC FUSION, back pain. TECHNIQUE: Fluoroscopy. COMPARISON: None. FINDINGS: Fluoroscopic guidance was provided during thoracic fusion procedure performed by Dr. Obdulio inman. A total of 60 seconds of fluoroscopic time was utilized during the procedure and 0 spot image s was acquired. TOTAL DAP = 9.4938 Gycm2. IMPRESSION: As Above. [facility], , 05/15/2024 4:00 PM
[2024-05-15] MEDS ORDERED: MAGNESIUM HYDROXIDE 2,400 MG/30 ML CUP PO PRN (16:18)
[2024-05-15] MEDS ORDERED: MAG HYDROX/AL HYDROX/SIMETH 30 ML CUP PO PRN (16:18)
[2024-05-15] MEDS ORDERED: SENNOSIDES-DOCUSATE SODIUM 1 EACH TAB PO PRN (16:18)
[2024-05-15] MEDS: ACETAMINOPHEN TAB 325 MG TAB PO SCH (18:52)
[2024-05-15] MEDS: PREGABALIN 75 MG CAP PO SCH (20:51)
[2024-05-15] MEDS: HYDROmorphone 0.5 MG/0.5 ML SYRINGE IVP PRN (21:56)
--- NOTE | 2024-05-15 21:57 | P.CONS ---
History of Present Illness - Reason for Consult Consult date: 05/15/24 anemia Requesting physician: Salma Raines - Chief Complaint back pain, anemia, pending surgery - History of Present Illness Mr. Tarango is a 53-year-old patient we have been asked to see because of anemia prior to surgery. It was reported that patient did not want to receive blood products. Patient is pending surgery for significant back pain. He has had several surgeries in the past, no anemia requiring transfusion in the past. On chart review, patient has had intermittent low hemoglobins, 11-12 range. In January, his hemoglobin dropped and since that time has been staying in the 8-9 range. Patient's hemoglobin today is 8.9, iron saturation 5.77%, fe rritin is 70 so, he is iron deficient. He had small bowel series 06/2023 with recommendations for EGD, had a colonoscopy 08/31/23 that was negative for any pathology. Patient reports taking naproxen recently for several months for pain. He denied any gross bleeding. Review of Systems 10 point ROS is neg except as stated in HPI Past Medical History Past Medical History: GERD/Reflux, Hyperlipidemia Additional Past Medical History / Comment(s): Frequent migraine headaches especially w/stressful situations. Pain and burning down both legs.resolved since 1st surgery. History of Any Multi-Drug Resistant Organisms: None Reported Past Surgical History: Cholecystectomy, Hernia Repair, Orthopedic Surgery Additional Past Surgical History / Comment(s): multiple back surgeries X5, right shoulder sx, wrist sx, hernia repair, colonoscopy Past Anesthesia/Blood Transfusion Reactions: No Reported Reaction Additional Past Anesthesia/Blood Transfusion Reaction / Comm: No previous blood transfusions Past Psychological History: Anxiety Additional Psychological History / Comment(s): just placed on some new meds, hasn't been given dx. Smoking Status: Former smoker Past Alcohol Use History: None Reported Additional Past Alcohol Use History / Comment(s): Started smoking at age 16, 02/08, quit September 2019. Past Drug Use History: None Reported Additional Drug Use History / Comment(s): Hx heavy Marijuana use daily use to help with pain control - Past Family History Mother Family Medical History: No Reported History Medications and Allergies Home Medications Medication Instructions Recorded Confirmed Type SUMAtriptan succinate [Imitrex] 50 mg PO DAILY PRN 12/12/17 05/11/24 History Pantoprazole Sodium [Protonix] 40 mg PO DAILY 04/16/21 05/11/24 History Fenofibrate [Lofibra] 160 mg PO DAILY 02/01/23 05/11/24 History Terbinafine [LamISIL] 250 mg PO DAILY 01/28/24 05/11/24 History Famotidine [Pepcid] 20 mg PO BID 04/16/24 05/11/24 History Vitamin C (Unknown Dose) 1 tab PO DAILY 04/16/24 05/11/24 History Vitamin D (Unknown Dose) 1 tab PO DAILY 04/16/24 05/11/24 History Pregabalin [Lyrica] 150 mg PO BID 14 Days #30 cap 04/19/24 05/11/24 Rx Naproxen 500 mg PO BID-W/MEALS PRN 05/11/24 05/11/24 History Rosuvastatin [Crestor] 10 mg PO HS 05/11/24 05/11/24 History fentaNYL 25MCG/HR PATCH [Duragesic 25 mcg TRANSDERM Q72H 05/11/24 05/11/24 History 25MCG/HR] methocarbamoL [Robaxin-750] 1,500 mg PO TID PRN 05/11/24 05/11/24 History oxyCODONE-APAP 7.5-325MG [Percocet 1 tab PO Q6HR PRN 05/11/24 05/11/24 History 7.5-325 mg] Allergies Allergy/AdvReac Type Severity Reaction Status Date / Time adhesive Allergy Rash/Hives Verified 05/14/24 13:58 aspirin AdvReac Nausea Verified 05/14/24 13:58 wine spirit AdvReac Unknown Verified 05/14/24 13:58 Physical Exam Vitals: Vital Signs Temp Pulse Pulse Resp BP BP Pulse Ox 05/15/24 06:00 68 18 128/81 95 05/15/24 05:00 49 L 18 124/83 96 05/15/24 04:00 98.0 F 45 L 19 123/80 93 L 05/15/24 03:00 48 L 16 136/77 95 05/15/24 02:00 57 L 19 131/80 95 05/15/24 01:00 61 20 125/76 96 05/15/24 00:32 54 L 21 93 L 05/15/24 00:00 98.0 F 60 20 141/83 97 05/14/24 23:00 75 18 131/83 96 05/14/24 22:00 63 22 141/91 94 L 05/14/24 21:00 70 16 118/67 99 05/14/24 20:00 98.1 F 72 20 99 05/14/24 19:32 102 H 22 98 05/14/24 18:00 97.7 F 100 20 175/90 05/14/24 16:32 56 L 16 135/69 98 05/14/24 16:10 76 16 135/71 98 05/14/24 16:01 61 16 135/71 98 05/14/24 15:02 67 16 119/65 98 05/14/24 14:04 97.3 F L 64 16 129/69 99 Intake and Output 05/14/24 05/15/24 05/15/24 22:59 06:59 14:59 Intake Total 900 600 75 Output Total 0 Balance 900 600 75 Intake: IV 300 600 75 Sodium Chloride 0.9% 1, 300 600 75 000 ml @ 75 mls/hr IV . [id number] COUNTS INCLUDE 234 BEDS AT THE [facility] Rx#:[id number] Intake, IV Titration 500 Amount Vancomycin 1,500 mg In 500 Sodium Chloride 0.9% 500 ml 500 ml @ 167 mls/hr IVPB Q12H COUNTS INCLUDE 234 BEDS AT THE [facility] Rx#: [id number] Oral 100 Output: Urine 0 Other: Voiding Method Bedside Commode Bedside Commode # Voids 1 1 Weight 82.2 kg ABP, PAP, CO, CI - Last 8 Hours Arterial Blood Pressure 149/74 Arterial Blood Pressure 111/93 - Constitutional General appearance: average body habitus, cooperative, no acute distress - EENT Eyes: anicteric sclerae, EOMI ENT: hearing grossly normal - Neck Neck: no lymphadenopathy - Respiratory Respiratory: bilateral: CTA - Cardiovascular Rhythm: regular Heart sounds: normal: S1, S2 Abnormal Heart Sounds: no systolic murmur, no diastolic murmur, no rub, no S3 Gallop, no S4 Gallop, no click, no other leg Peripheral Edema: bilateral: None - Gastrointestinal General gastrointestinal: no absent bowel sounds, no decreased bowel sounds, no distended, no hepatomegaly, no hyperactive bowel sounds, normal bowel sounds, no organomegaly, no rigid, no scaphoid, soft, no splenomegaly, no tenderness, no umbilical hernia, no ventral hernia - Integumentary Integumentary: pale - Neurologic Neurologic: CNII-XII intact - Musculoskeletal Musculoskeletal: strength equal bilaterally - Psychiatric flat affect Psychiatric: A&O x's 3 Results CBC & Chem 7: 05/15/24 05:31 05/15/24 05:31 Labs: Abnormal Lab Results - Last 24 Hours (Table) 05/13/24 05/14/24 05/14/24 Range/Units 06:26 09:26 17:58 RBC (4.40-5.60) 10*6/uL Hgb (13.0-17.0) g/dL Hct (39.6-50.0) % MCV (80.0-97.0) fL MCH (27.0-32.0) pg MCHC (32.0-37.0) g/dL Plt Count (140-440) 10*3/uL MPV (9.5-12.2) fL Eosinophils # (0.04-0.35) 10*3/uL Chloride (98-107) mmol/L Carbon Dioxide (22-30) mmol/L BUN (9-20) mg/dL Glucose (74-99) mg/dL POC Glucose (mg/dL) 113 H (70-110) mg/dL Iron 24 L (65-175) UG/DL % Saturation 5.77 L (15.00-50.00) AST (17-59) U/L Total Protein (6.3-8.2) g/dL Albumin (3.5-5.0) g/dL Crossmatch See Detail 05/15/24 05/15/24 Range/Units 05:31 05:31 RBC 4.04 L (4.40-5.60) 10*6/uL Hgb 8.9 L (13.0-17.0) g/dL Hct 30.0 L (39.6-50.0) % MCV 74.3 L (80.0-97.0) fL MCH 22.0 L (27.0-32.0) pg MCHC 29.7 L (32.0-37.0) g/dL Plt Count 573 H (140-440) 10*3/uL MPV 9.4 L (9.5-12.2) fL Eosinophils # 0.00 L (0.04-0.35) 10*3/uL Chloride 112 H (98-107) mmol/L Carbon Dioxide 18 L (22-30) mmol/L BUN 25 H (9-20) mg/dL Glucose 113 H (74-99) mg/dL POC Glucose (mg/dL) (70-110) mg/dL Iron (65-175) UG/DL % Saturation (15.00-50.00) AST 15 L (17-59) U/L Total Protein 6.2 L (6.3-8.2) g/dL Albumin 3.4 L (3.5-5.0) g/dL Crossmatch Assessment and Plan (1) Iron deficiency anemia Current Visit: Yes Status: Acute Priority: High Code(s): D50.9 - IRON DEFICIENCY ANEMIA, UNSPECIFIED SNOMED Code(s): 66191849 Plan: Microcytic, hypochromic anemia -Patient currently admitted with back pain. He is being scheduled for orthopedic procedure. Hemoglobin today is 8.9. -The reason we were consulted is because patient is a [employer] and not accepting of blood products. Surgeon requirements for Hgb prior to surgery seems to be adequate at 8.9 as nursing is reporting plans to go ahead with surgery. The concern is karen and post op. It is unknown if karen and postoperatively the patient may need blood products so, Surgeon wants a plan in place. -Patient is aware of risks of surgery and possibly the need for transfusion. It was explained to patient that option for patients who do not wish to receive blood products entails giving parenteral iron and then administering SANTIAGO injections. This will take time to increase the hemoglobin but, it is an option to try and keep the hemoglobin in a safe range if it were to drop below a safe range. Iron and SANTIAGO would be given only to put Hgb in safe range (>7). -During discussion with the patient, he stated that he understood the risks of surgery, and understood the possible need for blood products. He was willing to consent for blood products, if needed, and only to keep Hgb in the safe range. - Hgb trending reviewed in EMR. His Hgb has been mostly normal previously with a few instances of Hgb slightly low, in the 11-12 range. - In January 2024 is when the most notable decrease in patient's hemoglobin was noted. 8-9 range. This has been persistent since that time -Iron studies show an iron level of 24, saturation of 5.77% and a ferritin of 70. Most consistent with iron deficiency. - It is recommended that the patient receive IV iron. We will plan for the same after he is stable postoperatively. -Pt has never had an EGD. In June 2023 upper GI series, EGD was recommended so, would recommend this outpt, once he is recovered from surgery -Pt had normal colonoscopy in August 2023. Anemia progressed in Jan 2024 and persisted since. May consider another colonoscopy at a later date, especially if anemia persists or recurs after iron infusions. attests: I have seen and examined pt, performed H&P, developed impression and plan of care. Discussed with dictator. Agree with documentation, dictated as a scribe.
[2024-05-16] MEDS: CEFEPIME 2 GM in SODIUM CHLORIDE 0.9% 100 ML IVPB SCH ×2 (03:21→12:39)
--- NOTE | 2024-05-16 08:42 | CT ---
EXAMINATION TYPE: CT thor lumbar spine wo con DATE OF EXAM: 05/16/2024 3:53 AM COMPARISON: None. CLINICAL INDICATION: Male, 53 years old with history of s/p OPEN TREATMENT OF T9 FRACTURE WITH T7-10 STABI, s/p OPEN TREATMENT OF T9 FRACTURE WITH T7-10 STABI TECHNIQUE: Contrast used: mL of , (none if empty) Oral contrast used: (none if empty) Axial images at 5 mm thick sections. Reconstructed images in the coronal and sagittal planes. FINDINGS: Postsurgical air is within the spinal canal and left paraspinal region within the upper thoracic spin e. Posterior fixation is evident with pedicle screws vertebral plasty. Thoracolumbar fixation extends to the pelvis. Laminectomies have been performed. Pseudomeningocele posterior to L2 and L3 levels may be present. IMPRESSION: 1. THERE MAY BE A PSEUDOMENINGOCELE POSTERIOR TO L2 AND L3. 2. POSTSURGICAL CHANGES [facility], , 05/16/2024 8:40 AM
[2024-05-16] MEDS: HYDROmorphone 2 MG/ML 1 ML SYRINGE IVP PRN (08:55)
--- NOTE | 2024-05-16 08:55 | P.PN ---
Subjective Progress Note Date: 05/15/24 This is a 53-year-old male who was recently admitted with back pain has been chronic and ongoing follows with Dr. Holland has had multiple back surgeries scheduled to undergo surgical intervention of the thoracic spine and currently in the OR. Patient has been having generalized weakness and frustration as he is not getting better and continues to be in significant pain and reports to feeling he has a poor quality of life. Will follow-up on surgical report. Recommend repeat labs in the a.m. and replace electrolytes per protocol. Continue bowel regimen and pain management per orthopedics Review of systems: Constitutional: No reports of fatigue, fever, or chills Cardiovascular: No reports of chest pain or palpitations Respiratory: No reports of shortness of breath or cough GI: No reports of nausea, no reports of vomiting, no diarrhea : No reports of dysuria or retention Neurovascular: reports of generalized weakness, continued ongoing back pain, reports increased pain in the lower back All medications have been reviewed Active Medications PHYSICAL EXAMINATION: GENERAL: The patient is alert and oriented x4, Well developed, well nourished. Obese, appears older than stated age HEENT: Pupils are round and equally reacting to light. EOMI. no scleral icterus. No conjunctival pallor. Normocephalic, atraumatic. No pharyngeal erythema. No thyromegaly. CARDIOVASCULAR: S1 and S2 muffled PULMONARY: diminished breath sounds bilaterally with no wheezing or rhonchi noted. ABDOMEN: soft. Nontender on exam. obese. non-distended, normoactive bowel sounds. No palpable organomegaly. MUSCULOSKELETAL: No joint swelling or deformity. EXTREMITIES: No cyanosis, clubbing, or pedal edema. NEUROLOGICAL: Gross neurological examination did not reveal any focal deficits. Diffuse weakness SKIN: No rashes. Assessment: Severe low back pain with acute on chronic radiculopathy, scheduled to undergo surgical intervention of the thoracic spine today 05/15/2024 T8-T8 9 region pain Elevated platelets Microcytic anemia Elevated white count Gastroesophageal reflux disease History of frequent migraines History of anxiety Former smoker Daily THC use Hyperlipidemia GI prophylaxis DVT prophylaxis Full code Plan: Recommend to continue with current medications and management per orthopedic services. Patient's scheduled to undergo thoracic intervention today and will await official report Per nursing staff patient made some comments about his continued ongoing pain and made statements that if he were to go home and this pain he would rather . Patient denies any suicidal ideation or thoughts of wanting to harm himself and reports this was set out of context as he is tired of being in and out of the hospital and continued severe pain. Psychiatry was consulted per ort hopedics Recommend incentive spirometer use at least 10 times every hour while awake Continue bowel regimen Follow-up on repeat labs Recommend PT/OT therapy postsurgery Due to multiple complex medical issues, prognosis is guarded The impression and plan of care has been dictated by Emili Sharpe, nurse practitioner as directed. Dr. Olu MD I have performed a history and examination and MDM of this patient, discussed the same with the dictator, and agree with the dictator's assessment and plan as written ,documented as a scribe. Based on total visit time, I have performed more than 50% of the visit. Any additional findings or plans will be noted. Objective - Vital Signs Vital signs: Vital Signs Temp 98.6 F 05/15/24 12:00 Pulse 51 L 05/15/24 12:00 Resp 21 05/15/24 12:00 BP 161/83 05/15/24 12:00 Pulse Ox 91 L 05/15/24 12:00 FiO2 Intake & Output 05/14/24 05/15/24 05/15/24 18:59 06:59 18:59 Intake Total 1500 452 Output Total 0 Balance 1500 452 Weight 84.1 kg 82.2 kg Intake: IV 900 452 Sodium Chloride 0.9% 1, 900 450 000 ml @ 75 mls/hr IV . [id number] [facility] Rx#:[id number] Intake, IV Titration 500 Amount Vancomycin 1,500 mg In 500 Sodium Chloride 0.9% 500 ml 500 ml @ 167 mls/hr IVPB Q12H [facility] Rx#: [id number] Oral 100 Output: Urine 0 Other: Voiding Method Bedside Commode Bedside Commode # Voids 1 1 ABP, PAP, CO, CI - Last Documented Arterial Blood Pressure 156/85 - Labs CBC & Chem 7: 05/15/24 05:31 05/15/24 05:31 Labs: Abnormal Lab Results - Last 24 Hours (Table) 05/13/24 05/14/24 05/14/24 Range/Units 06:26 09:26 17:58 RBC (4.40-5.60) 10*6/uL Hgb (13.0-17.0) g/dL Hct (39.6-50.0) % MCV (80.0-97.0) fL MCH (27.0-32.0) pg MCHC (32.0-37.0) g/dL Plt Count (140-440) 10*3/uL MPV (9.5-12.2) fL Eosinophils # (0.04-0.35) 10*3/uL Chloride (98-107) mmol/L Carbon Dioxide (22-30) mmol/L BUN (9-20) mg/dL Glucose (74-99) mg/dL POC Glucose (mg/dL) 113 H (70-110) mg/dL Iron 24 L (65-175) UG/DL % Saturation 5.77 L (15.00-50.00) AST (17-59) U/L Total Protein (6.3-8.2) g/dL Albumin (3.5-5.0) g/dL Crossmatch See Detail 05/15/24 05/15/24 Range/Units 05:31 05:31 RBC 4.04 L (4.40-5.60) 10*6/uL Hgb 8.9 L (13.0-17.0) g/dL Hct 30.0 L (39.6-50.0) % MCV 74.3 L (80.0-97.0) fL MCH 22.0 L (27.0-32.0) pg MCHC 29.7 L (32.0-37.0) g/dL Plt Count 573 H (140-440) 10*3/uL MPV 9.4 L (9.5-12.2) fL Eosinophils # 0.00 L (0.04-0.35) 10*3/uL Chloride 112 H (98-107) mmol/L Carbon Dioxide 18 L (22-30) mmol/L BUN 25 H (9-20) mg/dL Glucose 113 H (74-99) mg/dL POC Glucose (mg/dL) (70-110) mg/dL Iron (65-175) UG/DL % Saturation (15.00-50.00) AST 15 L (17-59) U/L Total Protein 6.2 L (6.3-8.2) g/dL Albumin 3.4 L (3.5-5.0) g/dL Crossmatch
[2024-05-16] MEDS ORDERED: HYDROcodone/APAP 7.5-325MG 1 EACH TAB PO PRN (09:55)
--- NOTE | 2024-05-16 10:02 | P.PN ---
Subjective Progress Note Date: 05/16/24 Principal diagnosis: Thoracic/lumbar pain, T9 fracture Patient evaluated at bedside today, he is resting in the ICU awake and alert. Patient's been on bedrest since surgery yesterday. Patient's pain seems a lot different than prior to the surgery, he is not having significant spasms and numbness in the right foot. He admits to most pain centrally over the incision at this time. He is moving extremities both upper and lower no difficulty. Urinary catheter remains in place. There was no surgical drain placed. He denies any headaches, blurry vision, nausea or vomiting, bed is elevated at 20 degrees at this time. Objective - Vital Signs Vital signs: Vital Signs Temp 97.7 F 05/16/24 09:00 Pulse 81 05/16/24 09:00 Resp 22 05/16/24 09:00 BP 120/90 05/16/24 09:00 Pulse Ox 93 L 05/16/24 09:00 FiO2 Intake & Output 05/15/24 05/16/24 05/16/24 18:59 06:59 18:59 Intake Total 1102 950 225 Output Total 450 1035 550 Balance 652 -85 -325 Weight 81 kg Intake: IV 1102 900 225 Sodium Chloride 0.9% 1, 600 900 225 000 ml @ 75 mls/hr IV . [id number] [facility] Rx#:[id number] Intake, IV Titration 50 Amount ceFAZolin 2 gm In 50 Dextrose 5% in Water 50 ml @ 100 mls/hr IVPB ONCE PRN Rx#:[id number] Output: Urine 450 1035 550 Other: Voiding Method Bedside Commode Indwelling Catheter # Voids 1 ABP, PAP, CO, CI - Last Documented Arterial Blood Pressure 110/97 - Exam Gen: AOx3, NAD VSS stable at this time Integument: Postop dressing is in good position and condition Palpation: Mild tenderness with palpation of the thoracolumbar spine ROM: Full range of motion in all major muscle groups of the bilateral upper and lower extremities, no focal deficits appreciated Sensory Exam: [Senory exam to light touch is intact C5-T1] [Senosry exam to light touch is intact L2-S1] Motor: Strength eusebio intact, no focal deficits in the bilateral upper and lower ex tremities difficult to assess a due to placement in ICU bed currently with his current restriction and elevation Reflexes: [/ in all UE and LE] Negative Mansi's bilaterally negative clonus bilaterally - Labs CBC & Chem 7: 05/15/24 05:31 05/15/24 05:31 Labs: Microbiology - Last 24 Hours (Table) 05/15/24 13:30 Gram Stain - Preliminary Back 05/15/24 13:35 Gram Stain - Preliminary Back Assessment and Plan Assessment: Postoperative day #1 status post open treatment of T9 fracture with T7-T10 stabilization with exploration and washout Anemia History of revision [id number] decompression and fusion, open treatment L3 fracture Chronic back pain Multiple medical comorbidities Plan: Pain control, had a long discussion today regarding his medication use. Patient had been off all narcotics for roughly 3 to 4 days prior to the surgery. Discussed with both the patient and his that I would like to slowly introduce oral medications pending his symptoms. Multiple medications have been ordered. Discussed with the patient we will try to avoid IV Dilaudid is much as possible. DVT prophylaxis, aspirin 81 mg twice daily to start 05/17/2024 Wound care, monitor surgical dressing, plan for dressing change in the next 24- 48 hours Activity level restrictions, patient will remain at 20 degrees bed elevation for most of today, will then begin increasing by 10 degrees. Monitor for lightheadedness, double vision, headaches PT/OT evaluation once more ambulatory Encourage incentive spirometer Other medical specialty recommendations appreciated Further recommendations to follow Time with Patient: Less than 30
[2024-05-16] MEDS: HYDROcodone/APAP 10-325MG 1 EACH TAB PO PRN (10:06)
[2024-05-16] MEDS: SODIUM FERRIC GLUCONAT-SUCROSE 125 MG in SODIUM CHLORIDE 0.9% 100 ML IVPB SCH (10:07)
[2024-05-16 10:34] LABS: Basophils # (A) 0.02 10*3/uL (0.00-0.10); Basophils % (A) 0.1 %; HCT 28.3 % (39.6-50.0); HGB 8.5 g/dL (13.0-17.0); Lymphocytes # (A) 0.87 10*3/uL (0.90-5.00); Lymphocytes % (A) 5.9 %; MCH 22.3 pg (27.0-32.0); MCV 74.1 fL (80.0-97.0); Mean Platelet Volume 9.6 fL (9.5-12.2); Monocytes # (A) 0.88 10*3/uL (0.20-1.00); Neutrophils # (A) 12.94 10*3/uL (1.80-7.70); Neutrophils % (A) 87.6 %; Platelet Count 434 10*3/uL (140-440); RBC 3.82 10*6/uL (4.40-5.60); RDW 21.8 % (11.5-14.5); WBC 14.77 10*3/uL (4.50-10.00)
[2024-05-16 10:44] LABS: African American GFR (CKD) >90 (>60 ml/min/1.73 sqM); Anion Gap 10 mmol/L; Blood Urea Nitrogen 16 mg/dL (9-20); Calcium 8.6 mg/dL (8.4-10.2); Carbon Dioxide 17 mmol/L (22-30); Chloride 109 mmol/L (98-107); Glucose 109 mg/dL (74-99); Non-African American GFR(CKD) >90 (>60 ml/min/1.73 sqM); Potassium 4.3 mmol/L (3.5-5.1); Sodium 136 mmol/L (137-145)
[2024-05-16 11:14] VITALS: BMI 30.6
[2024-05-16] MEDS: oxyCODONE-APAP 7.5-325MG 1 EACH TAB PO PRN (12:42)
[2024-05-16] MEDS: DEXAMETHASONE SOD PHOSPHATE 4 MG/ML 1 ML VIAL IVP SCH (17:35)
--- NOTE | 2024-05-16 22:40 | P.PN ---
Subjective Progress Note Date: 05/16/24 This is a 53-year-old male who was recently admitted with back pain has been chronic and ongoing follows with Dr. Holland has had multiple back surgeries scheduled to undergo surgical intervention of the thoracic spine and currently in the OR. Patient has been having generalized weakness and frustration as he is not getting better and continues to be in significant pain and reports to feeling he has a poor quality of life. Will follow-up on surgical report. Recommend repeat labs in the a.m. and replace electrolytes per protocol. Continue bowel regimen and pain management per orthopedics 05/16/2024 Patient is seen in follow-up today status post open treatment of T9 fracture with T7-T10 stabilization with exploration and washout. Patient is out of the ICU maintained on the medical surgical floor doing relatively well. Patient reports his pain is managed and he is different sensations he did not previously have. Patient reporting bilateral lower extremity tingling and feels his surgic al site is burning. Patient surgical site is dry and intact and was evaluated by general orthopedic surgeon. Patient is afebrile will follow-up cultures. Preliminary thus far negative with infectious disease following. Review of systems: Constitutional: No reports of fatigue, fever, or chills Cardiovascular: No reports of chest pain or palpitations Respiratory: No reports of shortness of breath or cough GI: No reports of nausea, no reports of vomiting, no diarrhea : No reports of dysuria or retention Neurovascular: reports of generalized weakness, continued ongoing back pain, no worsening, reports some lower extremity tingling All medications have been reviewed Active Medications PHYSICAL EXAMINATION: GENERAL: The patient is alert and oriented x4, Well developed, well nourished. Obese, appears older than stated age HEENT: Pupils are round and equally reacting to light. EOMI. no scleral icterus. No conjunctival pallor. Normocephalic, atraumatic. No pharyngeal erythema. No thyromegaly. CARDIOVASCULAR: S1 and S2 muffled PULMONARY: diminished breath sounds bilaterally with no wheezing or rhonchi noted. ABDOMEN: soft. Nontender on exam. obese. non-distended, normoactive bowel sounds. No palpable organomegaly. MUSCULOSKELETAL: No joint swelling or deformity. EXTREMITIES: No cyanosis, clubbing, or pedal edema. NEUROLOGICAL: Gross neurological examination did not reveal any focal deficits. Diffuse weakness SKIN: No rashes. Assessment: Severe low back pain with acute on chronic radiculopathy, status post open treatment of T9 fracture with T7-T10 stabilization with exploration and washout T8-T9 region pain, possibly secondary to T9 fracture Elevated platelets Microcytic anemia Elevated white count, possibly reactive History of revision of [id number] decompression and fusion with open treatment of an L3 fracture previously History of chronic back pain Gastroesophageal reflux disease History of frequent migraines History of anxiety Former smoker Daily THC use Hyperlipidemia GI prophylaxis DVT prophylaxis Full code Plan: Recommend to continue with current medications and management per orthopedic services. Patient underwent thoracic intervention on 05/15/2024, postop day 1 Patient is out of the ICU on the medical surgical floor Will await PT/OT therapy once cleared by orthopedics with restrictions per orthopedics. Continue with head of the bed elevated 10 degrees per oncology recommendations Recommend incentive spirometer use at least 10 times every hour while awake Continue bowel regimen Follow-up on repeat labs Recommend PT/OT therapy postsurgery Due to multiple complex medical issues, prognosis is guarded The impression and plan of care has been dictated by Emili Sharpe, nurse practitioner as directed. Dr. Olu MD I have performed a history and examination and MDM of this patient, discussed the same with the dictator, and agree with the dictator's assessment and plan as written ,documented as a scribe. Based on total visit time, I have performed more than 50% of the visit. Any additional findings or plans will be noted. Objective - Vital Signs Vital signs: Vital Signs Temp 98.0 F 05/16/24 04:00 Pulse 63 05/16/24 08:00 Resp 12 05/16/24 08:00 BP 130/85 05/16/24 08:00 Pulse Ox 95 05/16/24 08:00 FiO2 Intake & Output 05/15/24 05/16/24 05/16/24 18:59 06:59 18:59 Intake Total 1102 950 75 Output Total 450 1035 150 Balance 652 -85 -75 Weight 81 kg Intake: IV 1102 900 75 Sodium Chloride 0.9% 1, 600 900 75 000 ml @ 75 mls/hr IV . [id number] [facility] Rx#:[id number] Intake, IV Titration 50 Amount ceFAZolin 2 gm In 50 Dextrose 5% in Water 50 ml @ 100 mls/hr IVPB ONCE PRN Rx#:[id number] Output: Urine 450 1035 150 Other: Voiding Method Bedside Commode Indwelling Catheter # Voids 1 ABP, PAP, CO, CI - Last Documented Arterial Blood Pressure 110/97 - Labs CBC & Chem 7: 05/16/24 10:19 05/16/24 10:19 Labs: Microbiology - Last 24 Hours (Table) 05/15/24 13:30 Gram Stain - Preliminary Back 05/15/24 13:35 Gram Stain - Preliminary Back
--- NOTE | 2024-05-16 23:16 | P.CONS ---
History of Present Illness - Reason for Consult Consult date: 05/16/24 ID management post spine revision surgery Requesting physician: Misael Guzmán - Chief Complaint Mid back pain x days - History of Present Illness Patient is a 53-year-old male with a past medical history difficult for reflux hyperlipidemia chronic back pain in this patient who did have multiple spine surgeries done by Dr. Holland admitted to the hospital about 5 days ago for evaluation of worsening pain to the back area patient was describing the pain to be sharp moderate to severe intensity without any radiation patient did have a CT scan which did shows evidence of fracture T8-T9 region with migration of the screws with the patient has been taken to the OR and the patient is status post open treatment of the T8 fracture with T7-T10 stabilization with exploration and washout operative report is currently pending patient was started on vancomycin concerning for possible infection to the spine area infectious he was consulted for further management of antibiotic therapy patient denies having any fever or any chills prior to coming to the hospital and did not have any fever on presentation or during this hospital stay patient denies any headache or URI symptoms no chest pain shortness of breath or cough no nausea no vomiting no abdominal pain no diarrhea patient did have a white count of 14.7 today creatinine 0.65 electrolytes has been normal or cultures currently pending Review of Systems Positive point and negatives has been mentioned in the HPI, complete review of systems was performed and all other systems are negative Past Medical History Past Medical History: GERD/Reflux, Hyperlipidemia Additional Past Medical History / Comment(s): Frequent migraine headaches especially w/stressful situations. Pain and burning down both legs.resolved since 1st surgery. History of Any Multi-Drug Resistant Organisms: None Reported Past Surgical History: Cholecystectomy, Hernia Repair, Orthopedic Surgery Additional Past Surgical History / Comment(s): multiple back surgeries X5, right shoulder sx, wrist sx, hernia repair, colonoscopy Past Anesthesia/Blood Transfusion Reactions: No Reported Reaction Additional Past Anesthesia/Blood Transfusion Reaction / Comm: No previous blood transfusions Past Psychological History: Anxiety Additional Psychological History / Comment(s): just placed on some new meds, hasn't been given dx. Smoking Status: Former smoker Past Alcohol Use History: None Reported Additional Past Alcohol Use History / Comment(s): Started smoking at age 16, 1/2 ppd, quit September 2019. Past Drug Use History: None Reported Additional Drug Use History / Comment(s): Hx heavy Marijuana use daily use to help with pain control - Past Family History Mother Family Medical History: No Reported History Medications and Allergies Home Medications Medication Instructions Recorded Confirmed Type SUMAtriptan succinate [Imitrex] 50 mg PO DAILY PRN 12/12/17 05/11/24 History Pantoprazole Sodium [Protonix] 40 mg PO DAILY 04/16/21 05/11/24 History Fenofibrate [Lofibra] 160 mg PO DAILY 02/01/23 05/11/24 History Terbinafine [LamISIL] 250 mg PO DAILY 01/28/24 05/11/24 History Famotidine [Pepcid] 20 mg PO BID 04/16/24 05/11/24 History Vitamin C (Unknown Dose) 1 tab PO DAILY 04/16/24 05/11/24 History Vitamin D (Unknown Dose) 1 tab PO DAILY 04/16/24 05/11/24 History Pregabalin [Lyrica] 150 mg PO BID 14 Days #30 cap 04/19/24 05/11/24 Rx Naproxen 500 mg PO BID-W/MEALS PRN 05/11/24 05/11/24 History Rosuvastatin [Crestor] 10 mg PO HS 05/11/24 05/11/24 History fentaNYL 25MCG/HR PATCH [Duragesic 25 mcg TRANSDERM Q72H 05/11/24 05/11/24 History 25MCG/HR] methocarbamoL [Robaxin-750] 1,500 mg PO TID PRN 05/11/24 05/11/24 History oxyCODONE-APAP 7.5-325MG [Percocet 1 tab PO Q6HR PRN 05/11/24 05/11/24 History 7.5-325 mg] Pregabalin [Lyrica] 150 mg PO BID #28 cap 05/21/24 Rx Sennosides/Docusate Sodium [Senna 1 each PO DAILY #20 capsule 05/21/24 Rx Plus 8.6-50 mg Softgel] methocarbamoL [Robaxin-750] 1,500 mg PO TID #42 tab 05/21/24 Rx oxyCODONE-APAP 7.5-325MG [Percocet 1 tab PO Q6HR PRN #28 tab 05/21/24 Rx 7.5-325 mg] Allergies Allergy/AdvReac Type Severity Reaction Status Date / Time adhesive Allergy Rash/Hives Verified 05/14/24 13:58 aspirin AdvReac Nausea Verified 05/14/24 13:58 wine spirit AdvReac Unknown Verified 05/14/24 13:58 Physical Exam Vitals: Vital Signs Temp Pulse Pulse Resp BP BP BP 05/16/24 09:00 97.7 F 81 22 120/90 05/16/24 08:00 63 12 130/85 05/16/24 07:00 62 16 139/86 05/16/24 06:00 58 L 14 130/72 05/16/24 05:00 59 L 12 116/82 05/16/24 04:00 98.0 F 64 16 125/88 05/16/24 03:00 65 15 05/16/24 02:00 67 14 126/83 05/16/24 01:00 98.1 F 65 14 111/92 05/16/24 00:00 16 136/80 05/15/24 23:00 71 14 139/84 05/15/24 22:05 83 16 05/15/24 22:00 66 16 145/93 05/15/24 21:00 68 12 143/89 05/15/24 20:00 97.5 F L 57 L 14 134/89 05/15/24 19:00 64 12 150/88 05/15/24 18:00 57 L 19 143/89 05/15/24 17:03 58 L 15 152/86 138/76 05/15/24 16:48 64 15 150/87 139/89 05/15/24 16:35 66 15 153/94 123/94 05/15/24 16:19 97.5 F L 67 15 147/89 133/78 05/15/24 12:00 98.6 F 51 L 21 161/83 Pulse Ox 05/16/24 09:00 93 L 05/16/24 08:00 95 05/16/24 07:00 90 L 05/16/24 06:00 89 L 05/16/24 05:00 94 L 05/16/24 04:00 94 L 05/16/24 03:00 97 05/16/24 02:00 97 05/16/24 01:00 98 05/16/24 00:00 05/15/24 23:00 100 05/15/24 22:05 100 05/15/24 22:00 100 05/15/24 21:00 98 05/15/24 20:00 96 05/15/24 19:00 100 05/15/24 18:00 96 05/15/24 17:03 95 05/15/24 16:48 95 05/15/24 16:35 100 05/15/24 16:19 100 05/15/24 12:00 91 L Intake and Output 05/15/24 05/16/24 05/16/24 22:59 06:59 14:59 Intake Total 950 650 225 Output Total 760 725 550 Balance 190 -75 -325 Intake: IV 950 600 225 Sodium Chloride 0.9% 1, 450 600 225 000 ml @ 75 mls/hr IV . [id number] [facility] Rx#:[id number] Intake, IV Titration 50 Amount ceFAZolin 2 gm In 50 Dextrose 5% in Water 50 ml @ 100 mls/hr IVPB ONCE PRN Rx#:[id number] Output: Urine 760 725 550 Other: Voiding Method Indwelling Catheter Indwelling Catheter Weight 81 kg 81 kg GENERAL DESCRIPTION: Middle-age male lying in bed, no distress. No tachypnea or accessory muscle of respiration use. HEENT: Shows Pallor , no scleral icterus. Oral mucous membrane is dry. NECK: Trachea central, no thyromegaly. LUNGS: Unlabored breathing. Clear to auscultation anteriorly. No wheeze or crackle. HEART: S1, S2, regular rate and rhythm. No loud murmur ABDOMEN: Soft, no tenderness , guarding or rigidity, no organomegaly EXTREMITIES: No edema of feet. SKIN: No rash, no masses palpable. NEUROLOGICAL: The patient is awake, alert, oriented x3, mood and affect normal. Results CBC & Chem 7: 05/21/24 02:29 05/21/24 02:29 Labs: Abnormal Lab Results - Last 24 Hours (Table) 05/16/24 05/16/24 Range/Units 10:19 10:19 WBC 14.77 H (4.50-10.00) 10*3/uL RBC 3.82 L (4.40-5.60) 10*6/uL Hgb 8.5 L (13.0-17.0) g/dL Hct 28.3 L (39.6-50.0) % MCV 74.1 L (80.0-97.0) fL MCH 22.3 L (27.0-32.0) pg MCHC 30.0 L (32.0-37.0) g/dL Immature Gran # 0.06 H (0.00-0.04) 10*3/uL Neutrophils # 12.94 H (1.80-7.70) 10*3/uL Lymphocytes # 0.87 L (0.90-5.00) 10*3/uL Eosinophils # 0.00 L (0.04-0.35) 10*3/uL Sodium 136 L (137-145) mmol/L Chloride 109 H (98-107) mmol/L Carbon Dioxide 17 L (22-30) mmol/L Creatinine 0.65 L (0.66-1.25) mg/dL Glucose 109 H (74-99) mg/dL Microbiology - Last 24 Hours (Table) 05/15/24 13:30 Gram Stain - Preliminary Back 05/15/24 13:35 Gram Stain - Preliminary Back Assessment and Plan (1) Leukocytosis Current Visit: Yes Status: Acute Code(s): D72.829 - ELEVATED WHITE BLOOD CELL COUNT, UNSPECIFIED SNOMED Code(s): 439208586 (2) Postoperative seroma Current Visit: Yes Status: Acute Code(s): [id number] - SNOMED Code(s): 216097658 (3) Back pain Current Visit: No Status: Acute Code(s): M54.9 - DORSALGIA, UNSPECIFIED SNOMED Code(s): 844978670 Plan: 1patient with a history of chronic back pain and this patient did have multiple surgeries on the spine with CT on this admission did shows fracture of the T8-9 region with migration of the screws status post open treatment of the fracture as well as the T710 stabilization and washout and there with postop seroma question of possible infected seroma for which culture has been obtained which are currently pending likely organism need to follow-up with both gram-negative as well as gram-positive skin kely 2-local culture obtained is currently pending 3-will check inflammatory markers 4-vancomycin pharmacy to dose target trough of 15 while watching kidney function and Vanco trough closely and cefepime added yesterday to provide good empiric coverage while waiting for the culture to finalize Question concern answered We will follow on clinical condition and cultures to further adjust medication if needed Thank you for this consultation we will follow the patient along with you Dictation was produced using Tyto dictation software. please excuse any grammatical, word or spelling errors. Time with Patient: Less than 30
[2024-05-17 06:40] LABS: African American GFR (CKD) >90 (>60 ml/min/1.73 sqM); Anion Gap 9 mmol/L; Blood Urea Nitrogen 14 mg/dL (9-20); C Reactive Protein 5.6 mg/dL (<1.0); Calcium 8.5 mg/dL (8.4-10.2); Carbon Dioxide 19 mmol/L (22-30); Chloride 107 mmol/L (98-107); Glucose 91 mg/dL (74-99); Non-African American GFR(CKD) >90 (>60 ml/min/1.73 sqM); Potassium 3.9 mmol/L (3.5-5.1); Sodium 135 mmol/L (137-145)
[2024-05-17] MEDS: SENNOSIDES-DOCUSATE SODIUM 1 EACH TAB PO SCH (08:00)
[2024-05-17] MEDS: polyethylene glycoL 3350 17 GM POWD.PACK PO SCH (08:02)
[2024-05-17] MEDS: VANCOMYCIN TROUGH DUE 1 EACH MISC MISCELLANE ONE (10:27)
--- NOTE | 2024-05-17 13:26 | P.PN ---
Subjective Progress Note Date: 05/17/24 Principal diagnosis: T9 FRACTURE WITH PROXIMAL JUNCTIONAL FAILURE ABOVE T9-PELVIS DECOMPRESSION AND FUSION POSSIBLE HARDWARE FAILURE T9 KYPHOSIS T9 SECONDARY TO THE FRACTURE Patient was seen at bedside this afternoon lying in the semirecumbent edition with Rosa in place and postoperative dressing in place over thoracolumbar spine. Patient says physical therapy did go well this morning as he was able to get up out of bed and walk around the room a little bit. Patient denies any headaches. Patient denies any other issues at this time. Objective - Vital Signs Vital signs: Vital Signs Temp 97.4 F L 05/17/24 07:47 Pulse 78 05/17/24 07:47 Resp 18 05/17/24 07:47 BP 123/78 05/17/24 07:47 Pulse Ox 97 05/17/24 07:47 FiO2 Intake & Output 05/16/24 05/17/24 05/17/24 18:59 06:59 18:59 Intake Total 2007 Output Total 675 1100 Balance 1333 -1100 Weight 81 kg Intake: IV 850 Sodium Chloride 0.9% 1, 750 000 ml @ 75 mls/hr IV . [id number] [facility] Rx#:[id number] Sodium Ferric Gluconat- 100 Sucrose 125 mg In Sodium Chloride 0.9% 100 ml @ 100 mls/hr IVPB DAILY [facility] Rx#:[id number] Intake, IV Titration 100 Amount Cefepime 2 gm In Sodium 100 Chloride 0.9% 100 ml @ 25 mls/hr IVPB Q8HR [facility] Rx# :[id number] Oral 1058 Output: Urine 675 1100 Other: Voiding Method Indwelling Catheter Indwelling Catheter Indwelling Catheter ABP, PAP, CO, CI - Last Documented Arterial Blood Pressure 110/97 - Exam Postop dressing appears to be clean, dry, intact. Dressing was taken down. Incision appears to be healing well. Sutures well aligned and in place. Negative for any drainage. New Optifoam dressing placed over incision. Rosa currently in place. Sensation is equal, symmetric, bilateral intact throughout the upper and lower extremities on exam. There is moderate tenderness to palpation over incision and in the para thoracic and paralumbar regions. Nontender on rest of exam. Patient does have some limited range of motion in the bilateral hips in flexion so extension while resting in bed secondary to referred pain and stiffness in the back. Good range of motion throughout the knees and ankles on exam. Full range of motion throughout bilateral upper extremities on exam. 4/5 in all major motor groups in bilateral lower extremities. 4+/5 in all major motor groups in bilateral upper extremities. Radial pulse intact, 2+ bilaterally. Cap refill under 3 seconds in digits of upper extremities. Negative Homans bilaterally. Negative clonus bilaterally. Negative Mansi bilaterally. - Labs CBC & Chem 7: 05/16/24 10:19 05/17/24 06:17 Labs: Abnormal Lab Results - Last 24 Hours (Table) 05/14/24 05/17/24 05/17/24 Range/Units 09:26 06:17 06:17 ESR 28 H (0-20) mm/Hr Sodium 135 L (137-145) mmol/L Carbon Dioxide 19 L (22-30) mmol/L Creatinine 0.65 L (0.66-1.25) mg/dL C-Reactive Protein 5.6 H (<1.0) mg/dL Crossmatch See Detail Microbiology - Last 24 Hours (Table) 05/15/24 13:30 Gram Stain - Preliminary Back Wound Culture - Preliminary 05/15/24 13:35 Gram Stain - Preliminary Back Wound Culture - Preliminary Assessment and Plan Assessment: T9 FRACTURE WITH PROXIMAL JUNCTIONAL FAILURE ABOVE T9-PELVIS DECOMPRESSION AND FUSION POSSIBLE HARDWARE FAILURE T9 KYPHOSIS T9 SECONDARY TO THE FRACTURE Postop day 2 status post OPEN TREATMENT OF T9 FRACTURE WITH T7-10 STABILIZATION WITH EXPLORATION AND WASHOUT Plan: 1. T9 FRACTURE WITH PROXIMAL JUNCTIONAL FAILURE ABOVE T9-PELVIS DECOMPRESSION AND FUSION; POSSIBLE HARDWARE FAILURE T9;KYPHOSIS T9 SECONDARY TO THE FRACTURE -surgery performed 05/15/2024 OPEN TREATMENT OF T9 FRACTURE WITH T7-10 STABILIZATION WITH EXPLORATION AND WASHOUT. Patient stable bedside this morning with postoperative dressing in place and Rosa in place. Dressing was changed at bedside. Incision healing healing well. Maintain Rosa at this time. Plan for Rosa removal tomorrow. Continue with pain medications every 4-6 hours. Percocet every 6 hours. Robaxin and Lyrica. Cultures pending at this time. We will continue to follow patient during stay in hospital. 2. Appreciate medical management 3. Pain management -Percocet; Lyrica; Robaxin; Dilaudid only as needed 4. GI prophylaxis -senna; MiraLAX; milk of mag; Protonix 5. DVT prophylaxis -mechanical 6. PT/OT -weightbearing as tolerated with walker 7. Encourage incentive spirometer use Time with Patient: Less than 30
[2024-05-18] MEDS: KETOROLAC 15 MG/ML 1 ML VIAL IVP PRN (08:19)
--- NOTE | 2024-05-18 10:21 | P.PN ---
Subjective Progress Note Date: 05/17/24 This is a 53-year-old male who was recently admitted with back pain has been chronic and ongoing follows with Dr. Holland has had multiple back surgeries scheduled to undergo surgical intervention of the thoracic spine and currently in the OR. Patient has been having generalized weakness and frustration as he is not getting better and continues to be in significant pain and reports to feeling he has a poor quality of life. Will follow-up on surgical report. Recommend repeat labs in the a.m. and replace electrolytes per protocol. Continue bowel regimen and pain management per orthopedics 05/16/2024 Patient is seen in follow-up today status post open treatment of T9 fracture with T7-T10 stabilization with exploration and washout. Patient is out of the ICU maintained on the medical surgical floor doing relatively well. Patient reports his pain is managed and he is different sensations he did not previously have. Patient reporting bilateral lower extremity tingling and feels his surgic al site is burning. Patient surgical site is dry and intact and was evaluated by general orthopedic surgeon. Patient is afebrile will follow-up cultures. Preliminary thus far negative with infectious disease following. 05/17/2024 Patient is seen in follow-up today with orthopedics following along with infectious disease and awaiting cultures to determine if IV antibiotics are required on discharge. Preliminary cultures thus far negative although will await till finalized cultures are available. Patient continues to report pain and is attempting to work with physical therapy recommend daily physical therapy evaluation as patient reports would like to go home on discharge. Patient is afebrile with no reports of chest pain or shortness of breath. Yesterday's white count was elevated at 14.77, likely reactive and will follow-up on repeat labs. Recommend continued incentive spirometer use at least 10 times every hour while awake. Patient is voiding with no difficulties denies having a bowel movement as of yet although is passing gas. Review of systems: Constitutional: No reports of fatigue, fever, or chills Cardiovascular: No reports of chest pain or palpitations Respiratory: No reports of shortness of breath or cough GI: No reports of nausea, no reports of vomiting, no diarrhea : No reports of dysuria or retention Neurovascular: reports of generalized weakness, continued ongoing back pain, no worsening, reports some lower extremity tingling All medications have been reviewed PHYSICAL EXAMINATION: GENERAL: The patient is alert and oriented x4, Well developed, well nourished. Obese, appears older than stated age HEENT: Pupils are round and equally reacting to light. EOMI. no scleral icterus. No conjunctival pallor. Normocephalic, atraumatic. No pharyngeal erythema. No thyromegaly. CARDIOVASCULAR: S1 and S2 muffled PULMONARY: diminished breath sounds bilaterally with no wheezing or rhonchi noted. ABDOMEN: soft. Nontender on exam. obese. non-distended, normoactive bowel sounds. No palpable organomegaly. MUSCULOSKELETAL: No joint swelling or deformity. EXTREMITIES: No cyanosis, clubbing, or pedal edema. NEUROLOGICAL: Gross neurological examination did not reveal any focal deficits. Diffuse weakness SKIN: No rashes. Assessment: Severe low back pain with acute on chronic radiculopathy, status post open treatment of T9 fracture with T7-T10 stabilization with exploration and washout T8-T9 region pain, possibly secondary to T9 fracture Elevated platelets Microcytic anemia Elevated white count, possibly reactive History of revision of [id number] decompression and fusion with open treatment of an L3 fracture previously History of chronic back pain Gastroesophageal reflux disease History of frequent migraines History of anxiety Former smoker Daily THC use Hyperlipidemia GI prophylaxis DVT prophylaxis Full code Plan: Recommend to continue with current medications and management per orthopedic services. Patient underwent thoracic intervention on 05/15/2024, postop day 2 Continue current pain regimen and discussed with him about limiting IV Dilaudid use Will await PT/OT therapy once cleared by orthopedics with restrictions per orthopedics. Continue with head of the bed elevated per orthopedic recommendations Recommend incentive spirometer use at least 10 times every hour while awake Continue bowel regimen Follow-up on repeat labs Recommend PT/OT therapy postsurgery daily The impression and plan of care has been dictated by Emili Sharpe, nurse practitioner as directed. Dr. Herberth MD I have performed a history and examination and MDM of this patient, discussed the same with the dictator, and agree with the dictator's assessment and plan as written ,documented as a scribe. Based on total visit time, I have performed more than 50% of the visit. Any additional findings or plans will be noted. Objective - Vital Signs Vital signs: Vital Signs Temp 97.4 F L 05/17/24 07:47 Pulse 78 05/17/24 07:47 Resp 18 05/17/24 07:47 BP 123/78 05/17/24 07:47 Pulse Ox 97 05/17/24 07:47 FiO2 Intake & Output 05/16/24 05/17/24 05/17/24 18:59 06:59 18:59 Intake Total 2007 Output Total 675 1100 Balance 1333 -1100 Weight 81 kg Intake: IV 850 Sodium Chloride 0.9% 1, 750 000 ml @ 75 mls/hr IV . [id number] [facility] Rx#:[id number] Sodium Ferric Gluconat- 100 Sucrose 125 mg In Sodium Chloride 0.9% 100 ml @ 100 mls/hr IVPB DAILY [facility] Rx#:[id number] Intake, IV Titration 100 Amount Cefepime 2 gm In Sodium 100 Chloride 0.9% 100 ml @ 25 mls/hr IVPB Q8HR [facility] Rx# :[id number] Oral 1058 Output: Urine 675 1100 Other: Voiding Method Indwelling Catheter Indwelling Catheter Indwelling Catheter ABP, PAP, CO, CI - Last Documented Arterial Blood Pressure 110/97 - Labs CBC & Chem 7: 05/16/24 10:19 05/17/24 06:17 Labs: Abnormal Lab Results - Last 24 Hours (Table) 05/14/24 05/17/24 05/17/24 Range/Units 09:26 06:17 06:17 ESR 28 H (0-20) mm/Hr Sodium 135 L (137-145) mmol/L Carbon Dioxide 19 L (22-30) mmol/L Creatinine 0.65 L (0.66-1.25) mg/dL C-Reactive Protein 5.6 H (<1.0) mg/dL Crossmatch See Detail Microbiology - Last 24 Hours (Table) 05/15/24 13:30 Gram Stain - Preliminary Back Wound Culture - Preliminary 05/15/24 13:35 Gram Stain - Preliminary Back Wound Culture - Preliminary
--- NOTE | 2024-05-18 10:45 | P.PN ---
Subjective Progress Note Date: 05/18/24 Principal diagnosis: T9 FRACTURE WITH PROXIMAL JUNCTIONAL FAILURE ABOVE T9-PELVIS DECOMPRESSION AND FUSION POSSIBLE HARDWARE FAILURE T9 KYPHOSIS T9 SECONDARY TO THE FRACTURE Patient was seen at bedside this morning lying in the semirecumbent position with Shah in place and postoperative dressing in place over thoracolumbar spine. Patient says he is in more pain than he was in yesterday however yesterday was the first day he did get up and walk around the room since prior to his injury over the past weekend. Patient denies any headaches. Patient denies any other issues at this time. Objective - Vital Signs Vital signs: Vital Signs Temp 97.4 F L 05/18/24 07:17 Pulse 76 05/18/24 07:17 Resp 18 05/18/24 07:17 BP 126/80 05/18/24 07:17 Pulse Ox 99 05/18/24 07:17 FiO2 Intake & Output 05/17/24 05/18/24 05/18/24 18:59 06:59 18:59 Output Total 1350 2800 Balance -1350 -2800 Weight 67 kg Output: Urine 1350 2800 Other: Voiding Method Indwelling Catheter Indwelling Catheter ABP, PAP, CO, CI - Last Documented Arterial Blood Pressure 110/97 - Exam dressing appears to be clean, dry, intact. Negative for any drainage. Shah currently in place. Sensation is equal, symmetric, bilateral intact throughout the upper and lower extremities on exam. There is moderate tenderness to palpation over incision and in the para thoracic and paralumbar regions. Nontender on rest of exam. Patient does have some limited range of motion in the bilateral hips in flexion so extension while resting in bed secondary to referred pain and stiffness in the back. Good range of motion throughout the knees and ankles on exam. Full range of motion throughout bilateral upper extremities on exam. 4/5 in all major motor groups in bilateral lower extremities. 4+/5 in all major motor groups in bilateral upper extremities. Radial pulse intact, 2+ bilaterally. Cap refill under 3 seconds in digits of upper extremities. Negative Homans bilaterally. Negative clonus bilaterally. Negative Mansi bilaterally. - Labs CBC & Chem 7: 05/16/24 10:19 05/17/24 06:17 Labs: Microbiology - Last 24 Hours (Table) 05/15/24 13:30 Anaerobic Culture - Preliminary Back 05/15/24 13:35 Anaerobic Culture - Preliminary Back 05/15/24 13:35 Gram Stain - Preliminary Back Wound Culture - Preliminary 05/15/24 13:30 Gram Stain - Preliminary Back Wound Culture - Preliminary Streptococcus gordonii Assessment and Plan Assessment: T9 FRACTURE WITH PROXIMAL JUNCTIONAL FAILURE ABOVE T9-PELVIS DECOMPRESSION AND FUSION POSSIBLE HARDWARE FAILURE T9 KYPHOSIS T9 SECONDARY TO THE FRACTURE Postop day 3 status post OPEN TREATMENT OF T9 FRACTURE WITH T7-10 STABILIZATION WITH EXPLORATION AND WASHOUT Plan: 1. T9 FRACTURE WITH PROXIMAL JUNCTIONAL FAILURE ABOVE T9-PELVIS DECOMPRESSION AND FUSION; POSSIBLE HARDWARE FAILURE T9;KYPHOSIS T9 SECONDARY TO THE FRACTURE - surgery performed 05/15/2024 OPEN TREATMENT OF T9 FRACTURE WITH T7-10 STABILIZATION WITH EXPLORATION AND WASHOUT. Dressing over thoracolumbar spine appears to be clean, dry, intact. Shah in place. Assess dressing daily. Remove shah today. Continue with pain medications every 4-6 hours. Percocet every 6 hours. Robaxin and Lyrica. Cultures finalized. ID following cultures closely. Abx recs per ID. We will continue to follow patient during stay in hospital. 2. Appreciate medical management 3. Pain management -Percocet; Lyrica; Robaxin; Dilaudid only as needed 4. GI prophylaxis -senna; MiraLAX; milk of mag; Protonix 5. DVT prophylaxis -mechanical 6. PT/OT -weightbearing as tolerated with walker 7. Encourage incentive spirometer use Time with Patient: Less than 30
[2024-05-18 10:48] LABS: HCT 25.7 % (39.6-50.0); HGB 7.6 g/dL (13.0-17.0); MCH 22.2 pg (27.0-32.0); MCHC 29.6 g/dL (32.0-37.0); MCV 75.1 FL (80.0-97.0); Mean Platelet Volume 10.2 FL (9.5-12.2); NRBC Per 100 WBC 0.05 X 10*3/uL (0.00-0.01); Platelet Count 363 X 10*3/uL (140-440); RBC 3.42 X 10*6/uL (4.40-5.60); RDW 22.7 % (11.5-14.5); WBC 12.26 X 10*3/uL (4.50-10.00)
[2024-05-18 11:02] LABS: ALT 12 U/L (10-49); AST 15 U/L (14-35); Albumin 3.3 g/dL (3.8-4.9); Albumin/Globulin Ratio 1.65 Ratio (1.60-3.17); Alkaline Phosphatase 88 U/L (41-126); BUN/Creat Ratio 17.33 Ratio (12.00-20.00); Blood Urea Nitrogen 10.4 mg/dL (9.0-27.0); Calcium 8.2 mg/dL (8.7-10.3); Carbon Dioxide 20.3 mmol/L (21.6-31.8); Chloride 106 mmol/L (96-109); Glucose 116 mg/dL (70-110); Potassium 3.6 mmol/L (3.5-5.5); Sodium 138 mmol/L (135-145); Total Bilirubin <0.2 mg/dL (0.3-1.2); Total Protein 5.3 g/dL (6.2-8.2)
[2024-05-18 11:16] LABS: Basophils # (A) 0.01 X 10*3/uL (0.00-0.10); Basophils % (A) 0.1 %; Eosinophils # (A) 0 X 10*3/uL (0.04-0.35); Eosinophils % (A) 0 %; Lymphocytes # (A) 1.76 X 10*3/uL (0.90-5.00); Lymphocytes % (A) 14.4 %; Monocytes # (A) 0.93 X 10*3/uL (0.20-1.00); Monocytes % (A) 7.6 %; Neutrophils # (A) 9.42 X 10*3/uL (1.80-7.70); Neutrophils % (A) 76.8 %
[2024-05-18 11:17] LABS: Microcytosis (M) 2+ (None Seen)
--- NOTE | 2024-05-18 14:59 | P.PN ---
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 Holland admitted to the hospital about for evaluation of worsening pain to the back area patient is status post open treatment of T8 fracture with the T710 stabilization culture open concern for infection and prompted this consultation. On today's evaluation that is 05/17/2024,the patient remains to be afebrile, patient is on room air not requiring supplemental oxygen and denies any shortness of breath no chest pain or cough.Patient denies having any nausea or vomiting, no abdominal pain and no diarrhea has been reported pain to the back area is currently controlled. Patient did have a creatinine 0.65 ESR is 28 CRP is 5.6 Vanco trough is 18 cultures are pending Objective - Vital Signs Vital signs: Vital Signs Temp 97.5 F L 05/17/24 12:30 Pulse 80 05/17/24 12:30 Resp 15 05/17/24 12:30 BP 112/71 05/17/24 12:30 Pulse Ox 96 05/17/24 12:30 FiO2 Intake & Output 05/16/24 05/17/24 05/17/24 18:59 06:59 18:59 Intake Total 2007 Output Total 675 1100 1350 Balance 1333 -1100 -1350 Weight 81 kg Intake: IV 850 Sodium Chloride 0.9% 1, 750 000 ml @ 75 mls/hr IV . [id number] [facility] Rx#:[id number] Sodium Ferric Gluconat- 100 Sucrose 125 mg In Sodium Chloride 0.9% 100 ml @ 100 mls/hr IVPB DAILY [facility] Rx#:[id number] Intake, IV Titration 100 Amount Cefepime 2 gm In Sodium 100 Chloride 0.9% 100 ml @ 25 mls/hr IVPB Q8HR [facility] Rx# :[id number] Oral 1058 Output: Urine 675 1100 1350 Other: Voiding Method Indwelling Catheter Indwelling Catheter Indwelling Catheter ABP, PAP, CO, CI - Last Documented Arterial Blood Pressure 110/97 - Exam GENERAL DESCRIPTION: Middle-age male lying in bed in no distress RESPIRATORY SYSTEM: Unlabored breathing , decreased breath sounds at bases HEART: S1 S2 regular rate and rhythm , ABDOMEN: Soft , no tenderness EXTREMITIES: No edema feet - Labs CBC & Chem 7: 05/18/24 05:29 05/18/24 05:29 Labs: Abnormal Lab Results - Last 24 Hours (Table) 05/14/24 05/17/24 05/17/24 Range/Units 09:26 06:17 06:17 ESR 28 H (0-20) mm/Hr Sodium 135 L (137-145) mmol/L Carbon Dioxide 19 L (22-30) mmol/L Creatinine 0.65 L (0.66-1.25) mg/dL C-Reactive Protein 5.6 H (<1.0) mg/dL Crossmatch See Detail Microbiology - Last 24 Hours (Table) 05/15/24 13:30 Gram Stain - Preliminary Back Wound Culture - Preliminary 05/15/24 13:35 Gram Stain - Preliminary Back Wound Culture - Preliminary Assessment and Plan (1) Leukocytosis Current Visit: Yes Status: Acute Code(s): D72.829 - ELEVATED WHITE BLOOD CELL COUNT, UNSPECIFIED SNOMED Code(s): 118404669 (2) Postoperative seroma Current Visit: Yes Status: Acute Code(s): ZAU6251 - SNOMED Code(s): 802332382 (3) Back pain Current Visit: No Status: Acute Code(s): M54.9 - DORSALGIA, UNSPECIFIED SNOMED Code(s): 621398705 Plan: 1patient with a history of chronic back pain and this patient did have multiple surgeries on the spine with CT on this admission did shows fracture of the T8-9 region with migration of the screws status post open treatment of the fracture as well as the 720 stabilization and washout and there with postop seroma question of possible infected seroma for which culture has been obtained which are currently pending likely organism need to follow-up with both gram-negative as well as gram-positive skin kely 2-local culture obtained are currently pending the patient had mild elevated i nflammation markers 3-patient be treated with vancomycin pharmacy to dose target trough of 15 while watching kidney function and Vanco trough closely and cefepime while waiting for the culture to finalize Question concern answered Dictation was produced using [employer] dictation software. please excuse any grammatical, word or spelling errors. Time with Patient: Less than 30
--- NOTE | 2024-05-18 15:00 | P.PN ---
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 Holland admitted to the hospital about for evaluation of worsening pain to the back area patient is status post open treatment of T8 fracture with the T710 stabilization culture open concern for infection and prompted this consultation. On today's evaluation that is 05/18/2024, the patient continues to be afebrile, the patient is on room air and breathing comfortably, the Pt denies having any chest pain or cough, the patient denies having any abdominal pain no vomiting or any diarrhea, patient complaining of more pain to the back area today than yesterday. Patient white count down to 12.26 creatinine 0.6 cultures from the back now growing Streptococcus gordonii with sensitivities pending Objective - Vital Signs Vital signs: Vital Signs Temp 97.4 F L 05/18/24 07:17 Pulse 76 05/18/24 07:17 Resp 18 05/18/24 07:17 BP 126/80 05/18/24 07:17 Pulse Ox 99 05/18/24 07:17 FiO2 Intake & Output 05/17/24 05/18/24 05/18/24 18:59 06:59 18:59 Output Total 1350 2800 Balance -1350 -2800 Weight 67 kg Output: Urine 1350 2800 Other: Voiding Method Indwelling Catheter Indwelling Catheter ABP, PAP, CO, CI - Last Documented Arterial Blood Pressure 110/97 - Exam GENERAL DESCRIPTION: Middle-age male lying in bed in no distress RESPIRATORY SYSTEM: Unlabored breathing , decreased breath sounds at bases HEART: S1 S2 regular rate and rhythm , ABDOMEN: Soft , no tenderness EXTREMITIES: No edema feet - Labs CBC & Chem 7: 05/18/24 05:29 05/18/24 05:29 Labs: Abnormal Lab Results - Last 24 Hours (Table) 05/18/24 05/18/24 Range/Units 05:29 05:29 WBC 12.26 H (4.50-10.00) X 10*3/uL RBC 3.42 L (4.40-5.60) X 10*6/uL Hgb 7.6 L (13.0-17.0) g/dL Hct 25.7 L (39.6-50.0) % MCV 75.1 L (80.0-97.0) FL MCH 22.2 L (27.0-32.0) pg MCHC 29.6 L (32.0-37.0) g/dL RDW 22.7 H (11.5-14.5) % Immature Gran # 0.14 H (0.00-0.04) X 10*3/uL Neutrophils # 9.42 H (1.80-7.70) X 10*3/uL Eosinophils # 0 L (0.04-0.35) X 10*3/uL NRBC/100 WBC Diff 0.05 H (0.00-0.01) X 10*3/uL Microcytosis (manual) 2+ A (None Seen) Carbon Dioxide 20.3 L (21.6-31.8) mmol/L Glucose 116 H (70-110) mg/dL Calcium 8.2 L (8.7-10.3) mg/dL Total Bilirubin <0.2 L (0.3-1.2) mg/dL Total Protein 5.3 L (6.2-8.2) g/dL Albumin 3.3 L (3.8-4.9) g/dL Microbiology - Last 24 Hours (Table) 05/15/24 13:30 Anaerobic Culture - Preliminary Back 05/15/24 13:35 Anaerobic Culture - Preliminary Back 05/15/24 13:35 Gram Stain - Preliminary Back Wound Culture - Preliminary 05/15/24 13:30 Gram Stain - Preliminary Back Wound Culture - Preliminary Streptococcus gordonii Assessment and Plan (1) Leukocytosis Current Visit: Yes Status: Acute Code(s): D72.829 - ELEVATED WHITE BLOOD CELL COUNT, UNSPECIFIED SNOMED Code(s): 399167546 (2) Postoperative seroma Current Visit: Yes Status: Acute Code(s): AJQ3693 - SNOMED Code(s): 075355601 (3) Back pain Current Visit: No Status: Acute Code(s): M54.9 - DORSALGIA, UNSPECIFIED SNOMED Code(s): 038781927 (4) Infected postoperative seroma Current Visit: Yes Status: Acute Code(s): [id number] - SNOMED Code(s): 584640468 (5) Thoracic abscess Current Visit: Yes Status: Acute Code(s): J86.9 - PYOTHORAX WITHOUT FISTULA SNOMED Code(s): 397689363 Plan: 1patient with a history of chronic back pain and this patient did have multiple surgeries on the spine with CT on this admission did shows fracture of the T8-9 region with migration of the screws status post open treatment of the fracture as well as the 720 stabilization and washout and there with postop seroma question of possible infected seroma for which culture has been obtained which are currently growing Streptococcus gordonii with sensitivities pending detail discussion with the microbiology lab to get the sensitivities that would help with the discharge antibiotics 2-local culture obtained are currently pending the patient had mild elevated inflammation markers 3-patient be treated with vancomycin pharmacy to dose target trough of 15 however cefepime to Rocephin 2 g daily as no resistant gram-negative has been s een patient will need a PICC line and at least a 6-week course of IV antibiotic therapy followed by suppressive oral antibiotic this has been discussed in detail with the patient and the multiple questions were answered Dictation was produced using [employer] dictation software. please excuse any grammatical, word or spelling errors. Time with Patient: Greater than 30
[2024-05-18] MEDS: SUMAtriptan succinate 50 MG TAB PO PRN (23:21)
--- NOTE | 2024-05-19 06:34 | P.PN ---
Subjective Progress Note Date: 05/18/24 This is a 53-year-old male who was recently admitted with back pain has been chronic and ongoing follows with Dr. Holland has had multiple back surgeries scheduled to undergo surgical intervention of the thoracic spine and currently in the OR. Patient has been having generalized weakness and frustration as he is not getting better and continues to be in significant pain and reports to feeling he has a poor quality of life. Will follow-up on surgical report. Recommend repeat labs in the a.m. and replace electrolytes per protocol. Continue bowel regimen and pain management per orthopedics 05/16/2024 Patient is seen in follow-up today status post open treatment of T9 fracture with T7-T10 stabilization with exploration and washout. Patient is out of the ICU maintained on the medical surgical floor doing relatively well. Patient reports his pain is managed and he is different sensations he did not previously have. Patient reporting bilateral lower extremity tingling and feels his surgic al site is burning. Patient surgical site is dry and intact and was evaluated by general orthopedic surgeon. Patient is afebrile will follow-up cultures. Preliminary thus far negative with infectious disease following. 05/17/2024 Patient is seen in follow-up today with orthopedics following along with infectious disease and awaiting cultures to determine if IV antibiotics are required on discharge. Preliminary cultures thus far negative although will await till finalized cultures are available. Patient continues to report pain and is attempting to work with physical therapy recommend daily physical therapy evaluation as patient reports would like to go home on discharge. Patient is afebrile with no reports of chest pain or shortness of breath. Yesterday's white count was elevated at 14.77, likely reactive and will follow-up on repeat labs. Recommend continued incentive spirometer use at least 10 times every hour while awake. Patient is voiding with no difficulties denies having a bowel movement as of yet although is passing gas. 05/18/2024 Patient is seen in follow-up this morning currently sitting up in bed 45 degrees reporting ongoing back pain and reports is worse than yesterday. Patient was able to get up and stand with physical therapy yesterday and has been attempting to work with them working on pain management per orthopedics. Miami's are being discontinued per orthopedics and will continue with Percocet as well as IV Dilaudid as needed. Patient continues with indwelling Rosa catheter which is scheduled to be removed today. Encouraged increase activity as tolerated with restrictions per orthopedics. Patient and at the bedside with multiple que stions and concerns that were answered to the best of her ability. They are frustrated that patient has required multiple surgeries and continues to be in pain with poor quality of life. Patient currently receiving IV iron as iron studies were noted to be low. Hematology has evaluated the patient recommending outpatient follow-up once stable. Hemoglobin is stable at 7.7 with no active bleeding noted. Infectious disease following as well maintained on antibiotics and culture showing Streptococcus gordonii and awaiting finalized cultures to determine appropriate discharge antibiotics. Patient will likely need IV antibiotics on discharge and case management is following. Review of systems: Constitutional: No reports of fatigue, fever, or chills Cardiovascular: No reports of chest pain or palpitations Respiratory: No reports of shortness of breath or cough GI: No reports of nausea, no reports of vomiting, reports passing gas and having bowel movements : No reports of dysuria or retention, continues with indwelling Rosa catheter although being removed today for 12/27/2024 Neurovascular: reports of generalized weakness, continued ongoing back pain, reports to feeling worse today, reports some lower extremity tingling All medications have been reviewed PHYSICAL EXAMINATION: GENERAL: The patient is alert and oriented x4, Well developed, well nourished. Obese, appears older than stated age HEENT: Pupils are round and equally reacting to light. EOMI. no scleral icterus. No conjunctival pallor. Normocephalic, atraumatic. No pharyngeal erythema. No thyromegaly. CARDIOVASCULAR: S1 and S2 muffled PULMONARY: diminished breath sounds bilaterally with no wheezing or rhonchi noted. ABDOMEN: soft. Nontender on exam. obese. non-distended, normoactive bowel sounds. No palpable organomegaly. MUSCULOSKELETAL: No joint swelling or deformity. EXTREMITIES: No cyanosis, clubbing, or pedal edema. NEUROLOGICAL: Gross neurological examination did not reveal any focal deficits. Diffuse weakness SKIN: No rashes. Assessment: Severe low back pain with acute on chronic radiculopathy, status post open treatment of T9 fracture with T7-T10 stabilization with exploration and washout T8-T9 region pain, possibly secondary to T9 fracture Elevated platelets anemia, likely chronic, iron deficiency noted Elevated white count, trending down History of revision of [id number] decompression and fusion with open treatment of an L3 fracture previously History of chronic back pain Gastroesophageal reflux disease History of frequent migraines History of anxiety Former smoker Daily THC use Hyperlipidemia GI prophylaxis DVT prophylaxis Full code Plan: Recommend to continue with current medications and management per orthopedic services. Patient underwent thoracic intervention on 05/15/2024, and is maintained on antibiotics with infectious disease following. Cultures p reliminary showing Streptococcus gordonii and awaiting finalized cultures to determine discharge antibiotics. Patient will likely require a PICC line and arrange for IV antibiotics outpatient Consult case management for IV antibiotics in the home and likely home care. Patient is adamant he is returning home does not want to go to rehab. Continue current pain regimen per orthopedics. Miami's have been discontinued and will continue with Percocet and as needed Dilaudid Recommend PT/OT therapy daily as patient reports he is going home and is weak. Continue with head of the bed elevated per orthopedic recommendations Recommend incentive spirometer use at least 10 times every hour while awake Continue bowel regimen as needed Follow-up on repeat labs The impression and plan of care has been dictated by Emili Sharpe, nurse practitioner as directed. Dr. Herberth MD I have performed a history and examination and MDM of this patient, discussed the same with the dictator, and agree with the dictator's assessment and plan as written ,documented as a scribe. Based on total visit time, I have performed more than 50% of the visit. Any additional findings or plans will be noted. Objective - Vital Signs Vital signs: Vital Signs Temp 97.4 F L 05/18/24 07:17 Pulse 76 05/18/24 07:17 Resp 18 05/18/24 07:17 BP 126/80 05/18/24 07:17 Pulse Ox 99 05/18/24 07:17 FiO2 Intake & Output 05/17/24 05/18/24 05/18/24 18:59 06:59 18:59 Output Total 1350 2800 Balance -1350 -2800 Weight 67 kg Output: Urine 1350 2800 Other: Voiding Method Indwelling Catheter Indwelling Catheter ABP, PAP, CO, CI - Last Documented Arterial Blood Pressure 110/97 - Labs CBC & Chem 7: 05/18/24 05:29 05/18/24 05:29 Labs: Microbiology - Last 24 Hours (Table) 05/15/24 13:30 Anaerobic Culture - Preliminary Back 05/15/24 13:35 Anaerobic Culture - Preliminary Back 05/15/24 13:35 Gram Stain - Preliminary Back Wound Culture - Preliminary 05/15/24 13:30 Gram Stain - Preliminary Back Wound Culture - Preliminary Streptococcus gordonii
[2024-05-19] MEDS: VANCOMYCIN TROUGH DUE 1 EACH MISC MISCELLANE ONE (07:53)
[2024-05-19 08:17] LABS: African American GFR (CKD) >90 (>60 ml/min/1.73 sqM); Anion Gap 7 mmol/L; Blood Urea Nitrogen 12 mg/dL (9-20); Calcium 8.7 mg/dL (8.4-10.2); Carbon Dioxide 23 mmol/L (22-30); Chloride 106 mmol/L (98-107); Glucose 78 mg/dL (74-99); Non-African American GFR(CKD) >90 (>60 ml/min/1.73 sqM); Potassium 2.9 mmol/L (3.5-5.1); Sodium 136 mmol/L (137-145)
[2024-05-19] MEDS ORDERED: BUTALB/APAP/CAFF 50-325-40MG TAB PO PRN (08:28)
[2024-05-19] MEDS: ONDANSETRON 4 MG/2 ML VIAL IVP PRN (08:33)
--- NOTE | 2024-05-19 08:53 | P.PN ---
Subjective Progress Note Date: 05/19/24 Principal diagnosis: T9 FRACTURE WITH PROXIMAL JUNCTIONAL FAILURE ABOVE T9-PELVIS DECOMPRESSION AND FUSION POSSIBLE HARDWARE FAILURE T9 KYPHOSIS T9 SECONDARY TO THE FRACTURE Patient was seen at bedside this morning sitting up in chair with dressing present over thoracolumbar spine. Nursing did remove patient's Rosa yesterday. Patient says he has been urinating on his own without any issue. Patient mentions last night he did get a headache, but it did go away after well. Patient says he does normally take Imitrex for headaches. Patient says he did get up and walk around the room a little bit yesterday. Patient has been in close contact with infectious disease doctor about the plan for antibiotics and PICC line. Patient denies any other issues at this time. Objective - Vital Signs Vital signs: Vital Signs Temp 97.9 F 05/19/24 06:48 Pulse 70 05/19/24 06:48 Resp 18 05/19/24 06:48 BP 111/70 05/19/24 06:48 Pulse Ox 98 05/19/24 06:48 FiO2 Intake & Output 05/18/24 05/19/24 05/19/24 18:59 06:59 18:59 Intake Total 1820 Output Total 750 Balance 1070 Weight 57.5 kg Intake: IV 1020 Invasive Line 5 20 Sodium Chloride 0.9% 1, 900 000 ml @ 75 mls/hr IV . [id number] [facility] Rx#:[id number] Sodium Ferric Gluconat- 100 Sucrose 125 mg In Sodium Chloride 0.9% 100 ml @ 100 mls/hr IVPB DAILY [facility] Rx#:[id number] Intake, IV Titration 800 Amount Cefepime 2 gm In Dextrose 200 5% in Water 100 ml @ 25 mls/hr IVPB Q8H [facility] Rx#: [id number] Sodium Ferric Gluconat- 100 Sucrose 125 mg In Sodium Chloride 0.9% 100 ml @ 100 mls/hr IVPB DAILY [facility] Rx#:[id number] Vancomycin 1,500 mg In 500 Sodium Chloride 0.9% 500 ml 500 ml @ 167 mls/hr IVPB Q12H [facility] Rx#: [id number] Output: Urine 750 Other: Voiding Method Toilet Toilet # Voids 2 ABP, PAP, CO, CI - Last Documented Arterial Blood Pressure 110/97 - Exam Dressing was changed at bedside this morning. Sensation is equal, symmetric, bilateral intact throughout the upper and lower extremities on exam. There is moderate tenderness to palpation over incision and in the para thoracic and paralumbar regions. Nontender on rest of exam. Patient does have some limited range of motion in the bilateral hips in flexion so extension while resting in bed secondary to referred pain and stiffness in the back. Good range of motion throughout the knees and ankles on exam. Full range of motion throughout bilateral upper extremities on exam. 4/5 in all major motor groups in bilateral lower extremities. 4+/5 in all major motor groups in bilateral upper extremities. Radial pulse intact, 2+ bilaterally. Cap refill under 3 seconds in digits of upper extremities. Negative Homans bilaterally. Negative clonus bilaterally. Negative Mansi bilaterally. - Labs CBC & Chem 7: 05/18/24 05:05/19/24 07:06 Labs: Abnormal Lab Results - Last 24 Hours (Table) 05/18/24 05/18/24 05/19/24 Range/Units 05: 05: 07:06 WBC 12.26 H (4.50-10.00) X 10*3/uL RBC 3.42 L (4.40-5.60) X 10*6/uL Hgb 7.6 L (13.0-17.0) g/dL Hct 25.7 L (39.6-50.0) % MCV 75.1 L (80.0-97.0) FL MCH 22.2 L (27.0-32.0) pg MCHC 29.6 L (32.0-37.0) g/dL RDW 22.7 H (11.5-14.5) % Immature Gran # 0.14 H (0.00-0.04) X 10*3/uL Neutrophils # 9.42 H (1.80-7.70) X 10*3/uL Eosinophils # 0 L (0.04-0.35) X 10*3/uL NRBC/100 WBC Diff 0.05 H (0.00-0.01) X 10*3/uL Microcytosis (manual) 2+ A (None Seen) Sodium 136 L (137-145) mmol/L Potassium 2.9 L (3.5-5.1) mmol/L Carbon Dioxide 20.3 L (21.6-31.8) mmol/L Glucose 116 H (70-110) mg/dL Calcium 8.2 L (8.7-10.3) mg/dL Total Bilirubin <0.2 L (0.3-1.2) mg/dL Total Protein 5.3 L (6.2-8.2) g/dL Albumin 3.3 L (3.8-4.9) g/dL Microbiology - Last 24 Hours (Table) 05/15/24 13:35 Gram Stain - Final Back Wound Culture - Final Streptococcus gordonii Assessment and Plan Assessment: T9 FRACTURE WITH PROXIMAL JUNCTIONAL FAILURE ABOVE T9-PELVIS DECOMPRESSION AND FUSION POSSIBLE HARDWARE FAILURE T9 KYPHOSIS T9 SECONDARY TO THE FRACTURE Postop day 4 status post OPEN TREATMENT OF T9 FRACTURE WITH T7-10 STABILIZATION WITH EXPLORATION AND WASHOUT Plan: 1. T9 FRACTURE WITH PROXIMAL JUNCTIONAL FAILURE ABOVE T9-PELVIS DECOMPRESSION AND FUSION; POSSIBLE HARDWARE FAILURE T9;KYPHOSIS T9 SECONDARY TO THE FRACTURE - surgery performed 05/15/2024 OPEN TREATMENT OF T9 FRACTURE WITH T7-10 STABILIZATION WITH EXPLORATION AND WASHOUT. Dressing changed over thoracolumbar spine. Continue with pain medications every 4-6 hours. Percocet every 6 hours. Robaxin and Lyrica. Cultures finalized. PICC line scheduled for 05/21/2024. Orthopedics will be available as needed to see patient. Will defer the rest of the management to the primary medicine team at this time. 2. Appreciate medical management 3. Pain management -Percocet; Lyrica; Robaxin; Dilaudid only as needed 4. GI prophylaxis -senna; MiraLAX; milk of mag; Protonix 5. DVT prophylaxis -mechanical 6. PT/OT -weightbearing as tolerated with walker 7. Encourage incentive spirometer use Time with Patient: Less than 30
[2024-05-19] MEDS: POTASSIUM CHLORIDE ER 20 MEQ TAB.ER PO SCH (10:25)
[2024-05-19 14:04] LABS: Basophils # (A) 0.01 X 10*3/uL (0.00-0.10); Basophils % (A) 0.1 %; Eosinophils # (A) 0.24 X 10*3/uL (0.04-0.35); Eosinophils % (A) 2.1 %; HGB 7.7 g/dL (13.0-17.0); Lymphocytes # (A) 3.07 X 10*3/uL (0.90-5.00); Lymphocytes % (A) 26.8 %; MCH 22.6 pg (27.0-32.0); MCHC 28.5 g/dL (32.0-37.0); MCV 79.2 FL (80.0-97.0); Mean Platelet Volume 10.2 FL (9.5-12.2); Monocytes # (A) 1.22 X 10*3/uL (0.20-1.00); Monocytes % (A) 10.7 %; NRBC Per 100 WBC 0.04 X 10*3/uL (0.00-0.01); Neutrophils # (A) 6.79 X 10*3/uL (1.80-7.70); Neutrophils % (A) 59.3 %; Platelet Count 337 X 10*3/uL (140-440); RBC 3.41 X 10*6/uL (4.40-5.60); RDW 23.9 % (11.5-14.5); WBC 11.45 X 10*3/uL (4.50-10.00)
[2024-05-19] MEDS ORDERED: SUMAtriptan succinate 50 MG TAB PO PRN (16:30)
--- NOTE | 2024-05-19 22:33 | P.PN ---
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 Holland admitted to the hospital about for evaluation of worsening pain to the back area patient is status post open treatment of T8 fracture with the T710 stabilization culture open concern for infection and prompted this consultation. On today's evaluation that is 05/19/2024, patient did not have any fever and denies any chills, patient is breathing comfortably on room air, patient with no chest pain or cough patient did not have any abdominal pain nausea vomiting or any loose stools pain to the mid back is currently controlled. Patient white count is 11.45 creatinine 0.70 spine culture growing Streptococcus gordonii Objective - Vital Signs Vital signs: Vital Signs Temp 97.9 F 05/19/24 06:48 Pulse 70 05/19/24 06:48 Resp 18 05/19/24 06:48 BP 111/70 05/19/24 06:48 Pulse Ox 98 05/19/24 06:48 FiO2 Intake & Output 05/18/24 05/19/24 05/19/24 18:59 06:59 18:59 Intake Total 1820 Output Total 750 Balance 1070 Weight 57.5 kg Intake: IV 1020 Invasive Line 5 20 Sodium Chloride 0.9% 1, 900 000 ml @ 75 mls/hr IV . [id number] [facility] Rx#:[id number] Sodium Ferric Gluconat- 100 Sucrose 125 mg In Sodium Chloride 0.9% 100 ml @ 100 mls/hr IVPB DAILY [facility] Rx#:[id number] Intake, IV Titration 800 Amount Cefepime 2 gm In Dextrose 200 5% in Water 100 ml @ 25 mls/hr IVPB Q8H [facility] Rx#: [id number] Sodium Ferric Gluconat- 100 Sucrose 125 mg In Sodium Chloride 0.9% 100 ml @ 100 mls/hr IVPB DAILY [facility] Rx#:[id number] Vancomycin 1,500 mg In 500 Sodium Chloride 0.9% 500 ml 500 ml @ 167 mls/hr IVPB Q12H [facility] Rx#: [id number] Output: Urine 750 Other: Voiding Method Toilet Toilet # Voids 2 ABP, PAP, CO, CI - Last Documented Arterial Blood Pressure 110/97 - Exam GENERAL DESCRIPTION: Middle-age male lying in bed in no distress RESPIRATORY SYSTEM: Unlabored breathing , decreased breath sounds at bases HEART: S1 S2 regular rate and rhythm , ABDOMEN: Soft , no tenderness EXTREMITIES: No edema feet - Labs CBC & Chem 7: 05/19/24 07:06 05/19/24 07:06 Labs: Abnormal Lab Results - Last 24 Hours (Table) 05/19/24 Range/Units 07:06 Sodium 136 L (137-145) mmol/L Potassium 2.9 L (3.5-5.1) mmol/L Microbiology - Last 24 Hours (Table) 05/15/24 13:35 Gram Stain - Final Back Wound Culture - Final Streptococcus gordonii Assessment and Plan (1) Leukocytosis Current Visit: Yes Status: Acute Code(s): D72.829 - ELEVATED WHITE BLOOD CELL COUNT, UNSPECIFIED SNOMED Code(s): 677750570 (2) Postoperative seroma Current Visit: Yes Status: Acute Code(s): AZB2808 - SNOMED Code(s): 429 935498 (3) Back pain Current Visit: No Status: Acute Code(s): M54.9 - DORSALGIA, UNSPECIFIED SNOMED Code(s): 412867994 (4) Infected postoperative seroma Current Visit: Yes Status: Acute Code(s): CWA9134 - SNOMED Code(s): 156560854 (5) Thoracic abscess Current Visit: Yes Status: Acute Code(s): J86.9 - PYOTHORAX WITHOUT FISTULA SNOMED Code(s): 338008782 Plan: 1patient with a history of chronic back pain and this patient did have multiple surgeries on the spine with CT on this admission did shows fracture of the T8-9 region with migration of the screws status post open treatment of the fracture as well as the 720 stabilization and washout and there with postop seroma question of possible infected seroma for which culture has been obtained which are currently growing Streptococcus gordonii with sensitivities pending detail discussion with the microbiology lab to get the sensitivities that would help with the discharge antibiotics 2-local culture obtained are currently pending the patient had mild elevated inflammation markers 3-patient be treated with vancomycin pharmacy to dose target trough of 15 and cefepime will be switched over to Rocephin 2 g daily patient to get a PICC line on Tuesday and outpatient IV antibiotic therapy followed by suppressive oral antibiotics discussed with the patient again Dictation was produced using [employer] dictation software. please excuse any gr ammatical, word or spelling errors.
[2024-05-20 04:56] LABS: African American GFR (CKD) >90 (>60 ml/min/1.73 sqM); Non-African American GFR(CKD) >90 (>60 ml/min/1.73 sqM)
--- NOTE | 2024-05-20 05:52 | P.PN ---
Subjective Progress Note Date: 05/19/24 This is a 53-year-old male who was recently admitted with back pain has been chronic and ongoing follows with Dr. Holland has had multiple back surgeries scheduled to undergo surgical intervention of the thoracic spine and currently in the OR. Patient has been having generalized weakness and frustration as he is not getting better and continues to be in significant pain and reports to feeling he has a poor quality of life. Will follow-up on surgical report. Recommend repeat labs in the a.m. and replace electrolytes per protocol. Continue bowel regimen and pain management per orthopedics 05/16/2024 Patient is seen in follow-up today status post open treatment of T9 fracture with T7-T10 stabilization with exploration and washout. Patient is out of the ICU maintained on the medical surgical floor doing relatively well. Patient reports his pain is managed and he is different sensations he did not previously have. Patient reporting bilateral lower extremity tingling and feels his surgical site is burning. Patient surgical site is dry and intact and was evaluated by general orthopedic surgeon. Patient is afebrile will follow-up cultures. Preliminary thus far negative with infectious disease following. 05/17/2024 Patient is seen in follow-up today with orthopedics following along with infectious disease and awaiting cultures to determine if IV antibiotics are required on discharge. Preliminary cultures thus far negative although will await till finalized cultures are available. Patient continues to report pain and is attempting to work with physical therapy recommend daily physical therapy evaluation as patient reports would like to go home on discharge. Patient is afebrile with no reports of chest pain or shortness of breath. Yesterday's white count was elevated at 14.77, likely reactive and will follow-up on repeat labs. Recommend continued incentive spirometer use at least 10 times every hour while awake. Patient is voiding with no difficulties denies having a bowel movement as of yet although is passing gas. 05/18/2024 Patient is seen in follow-up this morning currently sitting up in bed 45 degrees reporting ongoing back pain and reports is worse than yesterday. Patient was able to get up and stand with physical therapy yesterday and has been attempting to work with them working on pain management per orthopedics. Butler's are being discontinued per orthopedics and will continue with Percocet as well as IV Dilaudid as needed. Patient continues with indwelling Rosa catheter which is scheduled to be removed today. Encouraged increase activity as tolerated with restrictions per orthopedics. Patient and at the bedside with multiple questions and concerns that were answered to the best of her ability. They are frustrated that patient has required multiple surgeries and continues to be in pain with poor quality of life. Patient currently receiving IV iron as iron studies were noted to be low. Hematology has evaluated the patient recommending outpatient follow-up once stable. Hemoglobin is stable at 7.7 with no active bleeding noted. Infectious disease following as well maintained on antibiotics and culture showing Streptococcus gordonii and awaiting finalized cultures to determine appropriate discharge antibiotics. Patient will likely need IV antibiotics on discharge and case management is following. 05/19/2024 Patient is evaluated today in follow up. Sitting up in the chair resting comfortably with no acute complaints at this time. Patient states his pain is currently controlled. He did have migraine headache overnight that has resolved with 2 doses of imitrex. Patient is being followed by orthopedics and ID. He remains on IV ceftriaxone and IV vancomycin with final wound culture sensitivities pending. Rosa catheter has been removed and patient has been urinating without difficulty. White blood cell count 11.45, hgb 7.7. Potassium 2.9 today. Review of systems: Constitutional: No reports of fatigue, fever, or chills Cardiovascular: No reports of chest pain or palpitations Respiratory: No reports of shortness of breath or cough GI: No reports of nausea, no reports of vomiting, reports passing gas and having bowel movements : No reports of dysuria or retention, continues with indwelling Rosa catheter although being removed today for 12/27/2024 Neurovascular: reports of generalized weakness, continued ongoing back pain, reports to feeling worse today, reports some lower extremity tingling All medications have been reviewed PHYSICAL EXAMINATION: GENERAL: The patient is alert and oriented x4, Well developed, well nourished. Obese, appears older than stated age HEENT: Pupils are round and equally reacting to light. EOMI. no scleral icterus. No conjunctival pallor. Normocephalic, atraumatic. No pharyngeal erythema. No thyromegaly. CARDIOVASCULAR: S1 and S2 muffled PULMONARY: diminished breath sounds bilaterally with no wheezing or rhonchi noted. ABDOMEN: soft. Nontender on exam. obese. non-distended, normoactive bowel sounds. No palpable organomegaly. MUSCULOSKELETAL: No joint swelling or deformity. EXTREMITIES: No cyanosis, clubbing, or pedal edema. NEUROLOGICAL: Gross neurological examination did not reveal any focal deficits. Diffuse weakness SKIN: No rashes. Assessment: Severe low back pain with acute on chronic radiculopathy, status post open treatment of T9 fracture with T7-T10 stabilization with exploration and washout T8-T9 region pain, possibly secondary to T9 fracture Elevated platelets anemia, likely chronic, iron deficiency noted Elevated white count, trending down History of revision of [id number] decompression and fusion with open treatment of an L3 fracture previously History of chronic back pain Gastroesophageal reflux disease History of frequent migraines History of anxiety Former smoker Daily THC use Hyperlipidemia GI prophylaxis DVT prophylaxis Full code Plan: Recommend to continue with current medications and management per orthopedic services. Patient underwent thoracic intervention on 05/15/2024, and is maintained on antibiotics with infectious disease following. Cultures preliminary showing Streptococcus gordonii and awaiting finalized cultures to determine discharge antibiotics. Patient will likely require a PICC line and arrange for IV antibiotics outpatient Consult case management for IV antibiotics in the home and likely home care. Patient is adamant he is returning home does not want to go to rehab. Continue current pain regimen per orthopedics. Butler's have been discontinued and will continue with Percocet and as needed Dilaudid Supplement potassium and repeat labs. Recommend PT/OT therapy daily as patient reports he is going home and is weak. Continue with head of the bed elevated per orthopedic recommendations Recommend incentive spirometer use at least 10 times every hour while awake Continue bowel regimen as needed Follow-up on repeat labs The impression and plan of care has been dictated by Corie Pineda, nurse practitioner as directed. Dr. Herberth MD I have performed a history and examination and MDM of this patient, discussed the same with the dictator, and agree with the dictator's assessment and plan as written ,documented as a scribe. Based on total visit time, I have performed more than 50% of the visit. Any additional findings or plans will be noted. Objective - Vital Signs Vital signs: Vital Signs Temp 98.1 F 05/19/24 19:37 Pulse 99 05/20/24 02:00 Resp 16 05/20/24 02:00 BP 117/77 05/20/24 02:00 Pulse Ox 98 05/20/24 02:00 FiO2 Intake & Output 05/19/24 05/19/24 05/20/24 06:59 18:59 06:59 Intake Total 2120 Output Total 3 Balance 2120 -3 Weight 57.5 kg Intake: Intake, IV Titration 1400 Amount Cefepime 2 gm In Dextrose 200 5% in Water 100 ml @ 25 mls/hr IVPB Q8H [facility] Rx#: [id number] Sodium Chloride 0.9% 1, 600 000 ml @ 75 mls/hr IV . [id number] [facility] Rx#:[id number] Sodium Ferric Gluconat- 100 Sucrose 125 mg In Sodium Chloride 0.9% 100 ml @ 100 mls/hr IVPB DAILY [facility] Rx#:[id number] Vancomycin 1,500 mg In 500 Sodium Chloride 0.9% 500 ml 500 ml @ 167 mls/hr IVPB Q12H [facility] Rx#: [id number] Oral 720 Output: Stool 3 Other: Voiding Method Toilet Toilet # Voids 2 3 1 # Bowel Movements 1 ABP, PAP, CO, CI - Last Documented Arterial Blood Pressure 110/97 - Labs CBC & Chem 7: 05/19/24 07:06 05/20/24 03:33 Labs: Abnormal Lab Results - Last 24 Hours (Table) 05/19/24 05/19/24 05/20/24 Range/Units 07:06 07:06 03:33 WBC 11.45 H (4.50-10.00) X 10*3/uL RBC 3.41 L (4.40-5.60) X 10*6/uL Hgb 7.7 L (13.0-17.0) g/dL Hct 27.0 L (39.6-50.0) % MCV 79.2 L (80.0-97.0) FL MCH 22.6 L (27.0-32.0) pg MCHC 28.5 L (32.0-37.0) g/dL RDW 23.9 H (11.5-14.5) % Immature Gran # 0.12 H (0.00-0.04) X 10*3/uL Monocytes # 1.22 H (0.20-1.00) X 10*3/uL NRBC/100 WBC Diff 0.04 H (0.00-0.01) X 10*3/uL Sodium 136 L (137-145) mmol/L Potassium 2.9 L (3.5-5.1) mmol/L Creatinine 0.60 L (0.66-1.25) mg/dL Microbiology - Last 24 Hours (Table) 05/15/24 13:30 Anaerobic Culture - Final Back 05/15/24 13:35 Anaerobic Culture - Final Back 05/15/24 13:30 Gram Stain - Final Back Wound Culture - Final Streptococcus gordonii Assessment and Plan Time with Patient: Less than 30
[2024-05-20 07:42] VITALS: RESP 18
[2024-05-20 07:50] LABS: Basophils # (A) 0.01 10*3/uL (0.00-0.10); Basophils % (A) 0.1 %; Eosinophils % (A) 4.9 %; HCT 27.4 % (39.6-50.0); HGB 8.3 g/dL (13.0-17.0); Lymphocytes # (A) 3.09 10*3/uL (0.90-5.00); Lymphocytes % (A) 25.2 %; MCH 23.1 pg (27.0-32.0); MCHC 30.3 g/dL (32.0-37.0); MCV 76.1 fL (80.0-97.0); Mean Platelet Volume 10.5 fL (9.5-12.2); Monocytes # (A) 1.01 10*3/uL (0.20-1.00); Monocytes % (A) 8.3 %; Neutrophils # (A) 7.39 10*3/uL (1.80-7.70); Neutrophils % (A) 60.4 %; Platelet Count 426 10*3/uL (140-440); RDW 24.9 % (11.5-14.5); WBC 12.24 10*3/uL (4.50-10.00)
[2024-05-20 08:11] LABS: African American GFR (CKD) >90 (>60 ml/min/1.73 sqM); Anion Gap 6 mmol/L; Blood Urea Nitrogen 8 mg/dL (9-20); Calcium 8.7 mg/dL (8.4-10.2); Carbon Dioxide 24 mmol/L (22-30); Chloride 105 mmol/L (98-107); Glucose 86 mg/dL (74-99); Non-African American GFR(CKD) >90 (>60 ml/min/1.73 sqM); Sodium 135 mmol/L (137-145)
[2024-05-20 08:12] LABS: Potassium 3.8 mmol/L (3.5-5.1)
[2024-05-20 09:20] LABS: Anisocytosis (M) Present; Poikilocytosis (M) Present
[2024-05-20] MEDS: cefTRIAXone 2 GM in DEXTROSE 5% IN WATER 50 ML IVPB SCH (09:53)
--- NOTE | 2024-05-20 13:04 | P.PN ---
Subjective Progress Note Date: 05/20/24 This is a 53-year-old male who was recently admitted with back pain has been chronic and ongoing follows with Dr. Holland has had multiple back surgeries scheduled to undergo surgical intervention of the thoracic spine and currently in the OR. Patient has been having generalized weakness and frustration as he is not getting better and continues to be in significant pain and reports to feeling he has a poor quality of life. Will follow-up on surgical report. Recommend repeat labs in the a.m. and replace electrolytes per protocol. Continue bowel regimen and pain management per orthopedics 05/16/2024 Patient is seen in follow-up today status post open treatment of T9 fracture with T7-T10 stabilization with exploration and washout. Patient is out of the ICU maintained on the medical surgical floor doing relatively well. Patient reports his pain is managed and he is different sensations he did not previously have. Patient reporting bilateral lower extremity tingling and feels his surgical site is burning. Patient surgical site is dry and intact and was evaluated by general orthopedic surgeon. Patient is afebrile will follow-up cultures. Preliminary thus far negative with infectious disease following. 05/17/2024 Patient is seen in follow-up today with orthopedics following along with infectious disease and awaiting cultures to determine if IV antibiotics are required on discharge. Preliminary cultures thus far negative although will await till finalized cultures are available. Patient continues to report pain and is attempting to work with physical therapy recommend daily physical therapy evaluation as patient reports would like to go home on discharge. Patient is afebrile with no reports of chest pain or shortness of breath. Yesterday's white count was elevated at 14.77, likely reactive and will follow-up on repeat labs. Recommend continued incentive spirometer use at least 10 times every hour while awake. Patient is voiding with no difficulties denies having a bowel movement as of yet although is passing gas. 05/18/2024 Patient is seen in follow-up this morning currently sitting up in bed 45 degrees reporting ongoing back pain and reports is worse than yesterday. Patient was able to get up and stand with physical therapy yesterday and has been attempting to work with them working on pain management per orthopedics. [place]'s are being discontinued per orthopedics and will continue with Percocet as well as IV Dilaudid as needed. Patient continues with indwelling Rosa catheter which is scheduled to be removed today. Encouraged increase activity as tolerated with restrictions per orthopedics. Patient and at the bedside with multiple questions and concerns that were answered to the best of her ability. They are frustrated that patient has required multiple surgeries and continues to be in pain with poor quality of life. Patient currently receiving IV iron as iron studies were noted to be low. Hematology has evaluated the patient recommending outpatient follow-up once stable. Hemoglobin is stable at 7.7 with no active bleeding noted. Infectious disease following as well maintained on antibiotics and culture showing Streptococcus gordonii and awaiting finalized cultures to determine appropriate discharge antibiotics. Patient will likely need IV antibiotics on discharge and case management is following. 05/19/2024 Patient is evaluated today in follow up. Sitting up in the chair resting comfortably with no acute complaints at this time. Patient states his pain is currently controlled. He did have migraine headache overnight that has resolved with 2 doses of imitrex. Patient is being followed by orthopedics and ID. He remains on IV ceftriaxone and IV vancomycin with final wound culture sensitivities pending. Rosa catheter has been removed and patient has been urinating without difficulty. White blood cell count 11.45, hgb 7.7. Potassium 2.9 today. 05/20/2024 Patient is eval today follow-up sitting up in the chair with his at the bedside. He continues to have significant drainage from his surgical dressing requiring reinforcement of the gauze. Patient does report that his pain level is a 9 out of 10 and feels like a band is wrapping around the lower rib cage. He states that even after pain medication his pain level never goes below a 7 out of 10. He does report that his headache has gone at this time. Final wound cultures reveal streptococcus gordonii with microsensitivities available. Maribeth ent does continue on a course of IV and biotics under the care of infectious disease and will require IV antibiotics at discharge. He is scheduled to undergo a PICC line placement tomorrow morning. Today reveal a white blood cell count of 12.24, hemoglobin 8.3, sodium level of 135, BUN of 8 creatinine 0.62. Requesting to discontinue the club lounge attendant and this will be done today. Additionally they do not want the fentanyl patch anymore and this will be discontinued as well. Review of systems: Constitutional: No reports of fatigue, fever, or chills Cardiovascular: No reports of chest pain or palpitations Respiratory: No reports of shortness of breath or cough GI: No reports of nausea, no reports of vomiting, reports passing gas and having bowel movements : No reports of dysuria or retention, continues with indwelling Rosa catheter although being removed today for 12/27/2024 Neurovascular: reports of generalized weakness, continued ongoing back pain, reports to feeling worse today, reports some lower extremity tingling All medications have been reviewed PHYSICAL EXAMINATION: GENERAL: The patient is alert and oriented x4, Well developed, well nourished. Obese, appears older than stated age HEENT: Pupils are round and equally reacting to light. EOMI. no scleral icterus. No conjunctival pallor. Normocephalic, atraumatic. No pharyngeal erythema. No thyromegaly. CARDIOVASCULAR: S1 and S2 muffled PULMONARY: diminished breath sounds bilaterally with no wheezing or rhonchi noted. ABDOMEN: soft. Nontender on exam. obese. non-distended, normoactive bowel sounds. No palpable organomegaly. MUSCULOSKELETAL: No joint swelling or deformity. EXTREMITIES: No cyanosis, clubbing, or pedal edema. NEUROLOGICAL: Gross neurological examination did not reveal any focal deficits. Diffuse weakness SKIN: No rashes. Assessment: Severe low back pain with acute on chronic radiculopathy, status post open treatment of T9 fracture with T7-T10 stabilization with exploration and washout T8-T9 region pain, possibly secondary to T9 fracture Elevated platelets anemia, likely chronic, iron deficiency noted Elevated white count, trending down History of revision of [id number] decompression and fusion with open treatment of an L3 fracture previously History of chronic back pain Gastroesophageal reflux disease History of frequent migraines History of anxiety Former smoker Daily THC use Hyperlipidemia GI prophylaxis DVT prophylaxis Full code Plan: Recommend to continue with current medications and management per orthopedic services. Patient underwent thoracic intervention on 05/15/2024, and is maintained on antibiotics with infectious disease following. Cultures preliminary showing Streptococcus gordonii and awaiting finalized cultures to determine discharge antibiotics. PICC line scheduled to be placed tomorrow morning. Consult case management for IV antibiotics in the home and likely home care. Patient is adamant he is returning home does not want to go to rehab. Continue current pain regimen per orthopedics. [place]'s have been discontinued and will continue with Percocet and as needed Dilaudid. Patient requesting the fentanyl patch to be discontinued. Supplement potassium and repeat labs. Recommend PT/OT therapy daily as patient reports he is going home and is weak. Continue with head of the bed elevated per orthopedic recommendations Recommend incentive spirometer use at least 10 times every hour while awake Continue bowel regimen as needed Follow-up on repeat labs The impression and plan of care has been dictated by Corie Pineda, nurse practitioner as directed. Dr. Herberth MD I have performed a history and examination and MDM of this patient, discussed the same with the dictator, and agree with the dictator's assessment and plan as written ,documented as a scribe. Based on total visit time, I have performed more than 50% of the visit. Any additional findings or plans will be noted. Objective - Vital Signs Vital signs: Vital Signs Temp 97.9 F 05/20/24 07:42 Pulse 91 05/20/24 07:42 Resp 18 05/20/24 07:42 BP 134/82 05/20/24 07:42 Pulse Ox 97 05/20/24 07:42 FiO2 Intake & Output 05/19/24 05/20/24 05/20/24 18:59 06:59 18:59 Intake Total 2120 Output Total 3 Balance 2120 -3 Intake: Intake, IV Titration 1400 Amount Cefepime 2 gm In Dextrose 200 5% in Water 100 ml @ 25 mls/hr IVPB Q8H [facility] Rx#: [id number] Sodium Chloride 0.9% 1, 600 000 ml @ 75 mls/hr IV . [id number] [facility] Rx#:[id number] Sodium Ferric Gluconat- 100 Sucrose 125 mg In Sodium Chloride 0.9% 100 ml @ 100 mls/hr IVPB DAILY [facility] Rx#:[id number] Vancomycin 1,500 mg In 500 Sodium Chloride 0.9% 500 ml 500 ml @ 167 mls/hr IVPB Q12H [facility] Rx#: [id number] Oral 720 Output: Stool 3 Other: Voiding Method Toilet # Voids 3 1 2 # Bowel Movements 1 ABP, PAP, CO, CI - Last Documented Arterial Blood Pressure 110/97 - Labs CBC & Chem 7: 05/20/24 07:27 05/20/24 07:27 Labs: Abnormal Lab Results - Last 24 Hours (Table) 05/19/24 05/20/24 05/20/24 Range/Units 07:06 03:33 07:27 WBC 11.45 H 12.24 H (4.50-10.00) X 10*3/uL RBC 3.41 L 3.60 L (4.40-5.60) X 10*6/uL Hgb 7.7 L 8.3 L (13.0-17.0) g/dL Hct 27.0 L 27.4 L (39.6-50.0) % MCV 79.2 L 76.1 L (80.0-97.0) FL MCH 22.6 L 23.1 L (27.0-32.0) pg MCHC 28.5 L 30.3 L (32.0-37.0) g/dL RDW 23.9 H 24.9 H (11.5-14.5) % Immature Gran # 0.12 H 0.14 H (0.00-0.04) X 10*3/uL Monocytes # 1.22 H 1.01 H (0.20-1.00) X 10*3/uL Eosinophils # 0.60 H (0.04-0.35) 10*3/uL NRBC/100 WBC Diff 0.04 H (0.00-0.01) X 10*3/uL Sodium (137-145) mmol/L BUN (9-20) mg/dL Creatinine 0.60 L (0.66-1.25) mg/dL 05/20/24 Range/Units 07:27 WBC (4.50-10.00) X 10*3/uL RBC (4.40-5.60) X 10*6/uL Hgb (13.0-17.0) g/dL Hct (39.6-50.0) % MCV (80.0-97.0) FL MCH (27.0-32.0) pg MCHC (32.0-37.0) g/dL RDW (11.5-14.5) % Immature Gran # (0.00-0.04) X 10*3/uL Monocytes # (0.20-1.00) X 10*3/uL Eosinophils # (0.04-0.35) 10*3/uL NRBC/100 WBC Diff (0.00-0.01) X 10*3/uL Sodium 135 L (137-145) mmol/L BUN 8 L (9-20) mg/dL Creatinine 0.62 L (0.66-1.25) mg/dL Microbiology - Last 24 Hours (Table) 05/15/24 13:30 Anaerobic Culture - Final Back 05/15/24 13:35 Anaerobic Culture - Final Back 05/15/24 13:30 Gram Stain - Final Back Wound Culture - Final Streptococcus gordonii Assessment and Plan Time with Patient: Less than 30
--- NOTE | 2024-05-20 23:23 | P.PN ---
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 Holland admitted to the hospital about for evaluation of worsening pain to the back area patient is status post open treatment of T8 fracture with the T710 stabilization culture open concern for infection and prompted this consultation. On today's evaluation that is 05/20/2024, Patient is afebrile patient is cu rrently on room air and denies having any shortness of breath, the patient denies any chest pain or cough, the patient denies any nausea vomiting did not have any abdominal pain and no diarrhea pain to the back incision is currently controlled still having drainage. Patient white count is slightly up to 12.24 creatinine 0.62 culture with Streptococcus gordonii Objective - Vital Signs Vital signs: Vital Signs Temp 97.8 F 05/20/24 14:00 Pulse 77 05/20/24 14:00 Resp 18 05/20/24 14:00 BP 132/84 05/20/24 14:00 Pulse Ox 100 05/20/24 14:00 FiO2 Intake & Output 05/20/24 05/20/24 05/21/24 06:59 18:59 06:59 Output Total 3 Balance -3 Output: Stool 3 Other: Voiding Method Toilet # Voids 1 5 # Bowel Movements 1 ABP, PAP, CO, CI - Last Documented Arterial Blood Pressure 110/97 - Exam GENERAL DESCRIPTION: Middle-age male lying in bed in no distress RESPIRATORY SYSTEM: Unlabored breathing , decreased breath sounds at bases HEART: S1 S2 regular rate and rhythm , ABDOMEN: Soft , no tenderness EXTREMITIES: No edema feet - Labs CBC & Chem 7: 05/20/24 07:27 05/20/24 07:27 Labs: Abnormal Lab Results - Last 24 Hours (Table) 05/20/24 05/20/24 05/20/24 Range/Units 03:33 07:27 07:27 WBC 12.24 H (4.50-10.00) 10*3/uL RBC 3.60 L (4.40-5.60) 10*6/uL Hgb 8.3 L (13.0-17.0) g/dL Hct 27.4 L (39.6-50.0) % MCV 76.1 L (80.0-97.0) fL MCH 23.1 L (27.0-32.0) pg MCHC 30.3 L (32.0-37.0) g/dL RDW 24.9 H (11.5-14.5) % Immature Gran # 0.14 H (0.00-0.04) 10*3/uL Monocytes # 1.01 H (0.20-1.00) 10*3/uL Eosinophils # 0.60 H (0.04-0.35) 10*3/uL Sodium 135 L (137-145) mmol/L BUN 8 L (9-20) mg/dL Creatinine 0.60 L 0.62 L (0.66-1.25) mg/dL Microbiology - Last 24 Hours (Table) 05/15/24 13:30 Anaerobic Culture - Final Back 05/15/24 13:35 Anaerobic Culture - Final Back 05/15/24 13:30 Gram Stain - Final Back Wound Culture - Final Streptococcus gordonii Assessment and Plan (1) Leukocytosis Current Visit: Yes Status: Acute Code(s): D72.829 - ELEVATED WHITE BLOOD CELL COUNT, UNSPECIFIED SNOMED Code(s): 822085496 (2) Postoperative seroma Current Visit: Yes Status: Acute Code(s): VBL7293 - SNOMED Code(s): 851619378 (3) Back pain Current Visit: No Status: Acute Code(s): M54.9 - DORSALGIA, UNSPECIFIED SNOMED Code(s): 474213482 (4) Infected postoperative seroma Current Visit: Yes Status: Acute Code(s): DNW5338 - SNOMED Code(s): 577288636 (5) Thoracic abscess Current Visit: Yes Status: Acute Code(s): J86.9 - PYOTHORAX WITHOUT FISTULA SNOMED Code(s): 708065289 Plan: 1patient with a history of chronic back pain and this patient did have multiple surgeries on the spine with CT on this admission did shows fracture of the T8-9 region with migration of the screws status post open treatment of the fracture as well as the 720 stabilization and washout and there with postop seroma question of possible infected seroma for which culture has been obtained which are currently growing Streptococcus gordonii with sensitivities pending detail discussion with the microbiology lab to get the sensitivities that would help with the discharge antibiotics 2-local culture obtained are currently pending the patient had mild elevated inflammation markers 3-patient currently treated with vancomycin pharmacy to dose target trough of 15 and Rocephin 2 g daily await sensitivity likely to picc in the 6-week course of IV Rocephin followed by suppressive oral antibiotic therapy this were discussed in detail with the patient and the at the bedside multiple question answered Dictation was produced using [employer] dictation software. please excuse any grammatical, word or spelling errors. Time with Patient: Less than 30
[2024-05-21 03:40] LABS: African American GFR (CKD) >90 (>60 ml/min/1.73 sqM); Anion Gap 7 mmol/L; Blood Urea Nitrogen 8 mg/dL (9-20); Calcium 8.7 mg/dL (8.4-10.2); Carbon Dioxide 24 mmol/L (22-30); Chloride 104 mmol/L (98-107); Glucose 79 mg/dL (74-99); Non-African American GFR(CKD) >90 (>60 ml/min/1.73 sqM); Potassium 3.6 mmol/L (3.5-5.1); Sodium 135 mmol/L (137-145)
[2024-05-21 08:28] VITALS: BP 125/78; PULSE 89; TEMP 98.7
[2024-05-21 08:49] LABS: Basophils # (A) 0 X 10*3/uL (0.00-0.10); Basophils % (A) 0 %; Eosinophils # (A) 0.52 X 10*3/uL (0.04-0.35); HCT 24.4 % (39.6-50.0); HGB 7.2 g/dL (13.0-17.0); Lymphocytes # (A) 2.72 X 10*3/uL (0.90-5.00); Lymphocytes % (A) 26.3 %; MCH 23.3 pg (27.0-32.0); MCHC 29.5 g/dL (32.0-37.0); Mean Platelet Volume 11.1 FL (9.5-12.2); Monocytes # (A) 0.97 X 10*3/uL (0.20-1.00); Monocytes % (A) 9.4 %; NRBC Per 100 WBC 0 X 10*3/uL (0.00-0.01); Neutrophils # (A) 6.01 X 10*3/uL (1.80-7.70); Platelet Count 296 X 10*3/uL (140-440); RBC 3.09 X 10*6/uL (4.40-5.60); RDW 25.8 % (11.5-14.5); WBC 10.35 X 10*3/uL (4.50-10.00)
--- NOTE | 2024-05-21 12:15 | P.PN ---
Subjective Progress Note Date: 05/21/24 Principal diagnosis: T9 FRACTURE WITH PROXIMAL JUNCTIONAL FAILURE ABOVE T9-PELVIS DECOMPRESSION AND FUSION POSSIBLE HARDWARE FAILURE T9 KYPHOSIS T9 SECONDARY TO THE FRACTURE Patient was seen at bedside this morning lying in semirecumbent position with dressing present over thoracolumbar spine. Patient says he has been urinating on his own without any issue. Patient says he did get up and walk around the room a little bit yesterday. Patient looking forward to going home today. Patient denies any other issues at this time. Objective - Vital Signs Vital signs: Vital Signs Temp 98.7 F 05/21/24 07:26 Pulse 89 05/21/24 07:26 Resp 18 05/21/24 07:26 BP 125/78 05/21/24 07:26 Pulse Ox 95 05/21/24 07:26 FiO2 Intake & Output 05/20/24 05/21/24 05/21/24 18:59 06:59 18:59 Intake Total 1000 Output Total 3 Balance 997 Weight 80.8 kg Intake: Oral 1000 Output: Stool 3 Other: Voiding Method Toilet # Voids 5 2 ABP, PAP, CO, CI - Last Documented Arterial Blood Pressure 110/97 - Exam Dressing present over thoracolumbar spine. some minimal spotting. Negative for any active drainage. sensation is equal, symmetric, bilateral intact throughout the upper and lower extremities on exam. There is moderate tenderness to palpation over incision and in the para thoracic and paralumbar regions. Nontender on rest of exam. Patient does have some limited range of motion in the bilateral hips in flexion so extension while resting in bed secondary to referred pain and stiffness in the back. Good range of motion throughout the knees and ankles on exam. Full range of motion throughout bilateral upper extremities on exam. 4/5 in all major motor groups in bilateral lower extremities. 4+/5 in all major motor groups in bilateral upper extremities. Radial pulse intact, 2+ bilaterally. Cap refill under 3 seconds in digits of upper extremities. Negative Homans bilaterally. Negative clonus bilaterally. Negative Mansi bilaterally. - Labs CBC & Chem 7: 05/21/24 02:29 05/21/24 02:29 Labs: Abnormal Lab Results - Last 24 Hours (Table) 05/21/24 05/21/24 Range/Units 02: 02:29 WBC 10.35 H (4.50-10.00) X 10*3/uL RBC 3.09 L (4.40-5.60) X 10*6/uL Hgb 7.2 L (13.0-17.0) g/dL Hct 24.4 L (39.6-50.0) % MCV 79.0 L (80.0-97.0) FL MCH 23.3 L (27.0-32.0) pg MCHC 29.5 L (32.0-37.0) g/dL RDW 25.8 H (11.5-14.5) % Immature Gran # 0.13 H (0.00-0.04) X 10*3/uL Eosinophils # 0.52 H (0.04-0.35) X 10*3/uL Sodium 135 L (137-145) mmol/L BUN 8 L (9-20) mg/dL Creatinine 0.58 L (0.66-1.25) mg/dL Assessment and Plan Assessment: T9 FRACTURE WITH PROXIMAL JUNCTIONAL FAILURE ABOVE T9-PELVIS DECOMPRESSION AND FUSION POSSIBLE HARDWARE FAILURE T9 KYPHOSIS T9 SECONDARY TO THE FRACTURE Postop day 6 status post OPEN TREATMENT OF T9 FRACTURE WITH T7-10 STABILIZATION WITH EXPLORATION AND WASHOUT Plan: 1. T9 FRACTURE WITH PROXIMAL JUNCTIONAL FAILURE ABOVE T9-PELVIS DECOMPRESSION AND FUSION; POSSIBLE HARDWARE FAILURE T9;KYPHOSIS T9 SECONDARY TO THE FRACTURE - surgery performed 05/15/2024 OPEN TREATMENT OF T9 FRACTURE WITH T7-10 STABILIZATION WITH EXPLORATION AND WASHOUT. Dressing present over thoracolumbar spine. Continue with pain medications every 4-6 hours. Percocet every 6 hours. Robaxin and Lyrica. IV abx per ID. Orthopedics will be available as needed to see patient. Patient stable from Ortho standpoint for discharge. Ortho signing off. Follow up in outpatient setting in 2 weeks. 2. Appreciate medical management 3. Pain management -Percocet; Lyrica; Robaxin; Dilaudid only as needed 4. GI prophylaxis -senna; MiraLAX; milk of mag; Protonix 5. DVT prophylaxis -mechanical 6. PT/OT -weightbearing as tolerated with walker 7. Encourage incentive spirometer use Time with Patient: Less than 30
--- NOTE | 2024-05-21 12:37 | P.PN ---
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 Holland admitted to the hospital about for evaluation of worsening pain to the back area patient is status post open treatment of T8 fracture with the T710 stabilization culture open concern for infection and prompted this consultation. On today's evaluation that is 05/21/2024, patient has been afebrile, patient is breathing comfortably and is currently on room air, patient denies having any chest pain and cough, patient denies nausea vomiting or diarrhea and no abdominal pain pain to the back area has decreased in intensity. Patient white count is 10.35, creatinine 0.58 cultures with Streptococcus tangela ii Rocephin sensitive Objective - Vital Signs Vital signs: Vital Signs Temp 98.7 F 05/21/24 07:26 Pulse 89 05/21/24 07:26 Resp 18 05/21/24 07:26 BP 125/78 05/21/24 07:26 Pulse Ox 95 05/21/24 07:26 FiO2 Intake & Output 05/20/24 05/21/24 05/21/24 18:59 06:59 18:59 Intake Total 1000 Output Total 3 Balance 997 Weight 80.8 kg Intake: Oral 1000 Output: Stool 3 Other: Voiding Method Toilet # Voids 5 2 ABP, PAP, CO, CI - Last Documented Arterial Blood Pressure 110/97 - Exam GENERAL DESCRIPTION: Middle-age male lying in bed in no distress RESPIRATORY SYSTEM: Unlabored breathing , decreased breath sounds at bases HEART: S1 S2 regular rate and rhythm , ABDOMEN: Soft , no tenderness EXTREMITIES: No edema feet - Labs CBC & Chem 7: 05/21/24 02:29 05/21/24 02:29 Labs: Abnormal Lab Results - Last 24 Hours (Table) 05/21/24 05/21/24 Range/Units 02:29 02:29 WBC 10.35 H (4.50-10.00) X 10*3/uL RBC 3.09 L (4.40-5.60) X 10*6/uL Hgb 7.2 L (13.0-17.0) g/dL Hct 24.4 L (39.6-50.0) % MCV 79.0 L (80.0-97.0) FL MCH 23.3 L (27.0-32.0) pg MCHC 29.5 L (32.0-37.0) g/dL RDW 25.8 H (11.5-14.5) % Immature Gran # 0.13 H (0.00-0.04) X 10*3/uL Eosinophils # 0.52 H (0.04-0.35) X 10*3/uL Sodium 135 L (137-145) mmol/L BUN 8 L (9-20) mg/dL Creatinine 0.58 L (0.66-1.25) mg/dL Assessment and Plan (1) Leukocytosis Current Visit: Yes Status: Acute Code(s): D72.829 - ELEVATED WHITE BLOOD CELL COUNT, UNSPECIFIED SNOMED Code(s): 690339311 (2) Postoperative seroma Current Visit: Yes Status: Acute Code(s): TWX6178 - SNOMED Code(s): 848687050 (3) Back pain Current Visit: No Status: Acute Code(s): M54.9 - DORSALGIA, UNSPECIFIED SNOMED Code(s): 223799700 (4) Infected postoperative seroma Current Visit: Yes Status: Acute Code(s): MAM5518 - SNOMED Code(s): 182704250 (5) Thoracic abscess Current Visit: Yes Status: Acute Code(s): J86.9 - PYOTHORAX WITHOUT FISTULA SNOMED Code(s): 517438804 Plan: 1patient with a history of chronic back pain and this patient did have multiple surgeries on the spine with CT on this admission did shows fracture of the T8-9 region with migration of the screws status post open treatment of the fracture as well as the T710 stabilization and washout and there with postop seroma question of possible infected seroma for which culture has been obtained which are currently growing Streptococcus gordonii that is sensitive to ceftriaxone 2will discontinue cefepime and vancomycin patient will get a dose of Rocephin 2 g daily prescription for outpatient antibiotic provided to the bilingual patient support caseworker along with weekly monitoring of CRP and sed rate and close outpatient follow-up multiple question answered Dictation was produced using [employer] software. please excuse any grammatical, word or spelling errors.
--- NOTE | 2024-05-23 12:51 | P.PN ---
Progress Note - Text Progress Note Date: 05/15/24 Spine Surgery Clinical and Risk Review Wiliam Tarango is a 53-year-old malepresenting for evaluation of midthoracic and low back pain as well as lower extremity weakness and pain. It was my pleasure to have seen and examined Sam. In our visit today we have had a chance to go over subjective complaints, physical examination findings and treatments including the natural course his tory without intervention and various interventional options. The patients imaging demonstrates new fracture of T9 with proximal segment and proximal junctional failure T9 with fractures to this area and kyphosis there is also fluid collection which is noted distally. Does not seem compressive however patient is experiencing symptoms related to this. On physical exam, Wiliam demonstrates bilateral lower extremity weakness 4 minus out of 5. Subperiosteal paresthesias in his right lower extremities. Left lower extremity had radiculopathy previously right lower extremity radiculopathy tensioning signs. No overt dermatomal deficits no perineal numbness or tingling at this time. I have explained to the patient that as their condition progresses it will cause further neurological deficits and eventual paralysis. Based on the patients imaging, physical exam, and the rapid progression and disabling nature of their symptoms, at this time I recommend surgery in the form or a: open treatment T9 fracture with T7 through T10 stabilization decompression and washout. I discussed the risk and benefits of this procedure at length withWiliam. The patient and his agreed to considered pursuing the procedure abovementioned. Prior to surgery, she should follow up with her PCP (Cardio, ID, IM etc) for clearance. Questions were invited and answered, and the patient wishes to proceed as outlined below. Currently, I am recommendin. open treatment T9 fracture with T7 through T10 stabilization decompression and washout 2. Follow up with PCP for surgical clearance 3. Review of surgical risks and benefits as well as an educational packet on the proposed surgical procedure. Risks: All surgical procedures come with inherent risks, including those related to positioning, anesthesia, intraoperative findings, and postoperative complications. It is important to understand that surgery does not come with any guarantee of a successful outcome as complications and adverse events are always possible. The patient was given a handout in office today discussing the surgical procedure and risks associated with the intervention, both of which were discussed with the patient. These risks include but are not limited to the following: * Experiencing same, different or even worse symptoms in back, neck, arms, or legs compared to before surgery. * Requiring further surgery or other forms of treatment presently or at some time in the future at same or other levels of the intended spine surgery. * On an extreme but fortunately relatively rare basis severe complication such as blindness, stroke, heart attack, temporary and/or permanent nerve injury, paralysis, coma, or may occur, sometimes without known explanation. * Surgical complications may include but are not limited to risk of infection, fluid accumulation in the surgical dissection site, including a seroma or hematoma, that requires additional surgery, wound drainage, bleeding, new numbness or weakness, vision changes/loss, spinal fluid leakage, non-healing and/or infected incision, headaches, difficulty or inability to swallow, hoarseness, hemopneumothorax, pneumothorax, impotence, retrograde ejaculation, vaginal dryness; injury to nerves, spinal cord, blood vessels, lymphatics or other vital organs (i.e., bowel injury, injury to the great vessels); heterotopic bone formation; complications related to the hardware such as screws, rods, cages including misplaced hardware, device failure, instrumentation at the wrong spine level, hardware fracture/breakage, or hardware loosening; vertebral failure of the spinal column above or below the newly placed hardware; retained surgical instrumentations or devices and the need for further surgery. * Medical risks of the planned spine surgery include but are not limited to generalized Infections to the whole body or local areas outside of the surgical site (sepsis), heart attack, bleeding, anaphylaxis, meningitis, seizure, epilepsy, hearing loss, burn valerio, laceration of the head or other areas of the body, bruising, hypersensitivity of the skin, bladder over distension; allergic reaction; shoulder injury related to positioning; fat, blood and air clots to other areas of the body like heart, lungs, brain; failure of internal organs such as lungs, kidneys, liver and excessive bleeding. If blood transfusions are necessary, note that transfusions may cause intolerance reactions such as anaphylaxis or other complex reactions. * Despite best efforts, the results of spine surgery might not heal in terms of bone, soft tissues such as skin, fascia, ligaments, and joints. Additionally, in order to achieve best possible results, spine surgery may be carried out beyond the initially planned levels and involve decompression, fusion i ncluding insertion of hardware at levels other than the original intended area of surgical interest change some portions of the procedure in order to ensure the best possible outcomes. * With spine surgery and spinal fusion, there are different off label uses of instrumentation (devices, implants and hardware) as well as biological substances (bone morphogenic proteins, demineralized bone matrix) as well as using extra bone from allograft sources (i.e. cadaver bone) or autograft (iliac crest bone, ribs, or the spine itself). The patient has been given information about these practices and their inherent risks and benefits. The patient has had a chance to review all the listed information, has been given print outs detailing this information, and has had all his/her questions answered to their satisfaction. It was my pleasure to have seen and examined Wiliam Tarango. In our visit today we have had a chance to go over my understanding of our patient's current condition, the natural course history without intervention and various interventional options. Questions were invited and answered, and the patient wishes to proceed as outlined above. I have seen and examined the patient for 25 minutes and we have spent more than 50% of the time in repeat and detailed counseling about the patient's condition, its natural course history with out and as much as can be predicted with surgery and re-review of various surgical treatment options. In conclusion, Wiliam Tarango and his wiferequested we proceed with the above suggested surgery and are willing to accept risks and limitations of the suggested surgery as nature of the disease process and our best attempts at treatment for the condition. we did discuss at length the different options for treatment including surgical and nonsurgical transfer and treatment. The patient yesterday was unable to consent for blood and his being a Yazidism would not not consent for him for this blood due to his lower hemoglobin was necessary to have the stability should he need life-saving efforts with blood transfusion. The patient stated that he was okay with that but he was unfortunately given medications before he was able to sign for this and we are unable to proceed regarding this. Today he has been lucid off pain medications and would like to proceed with surgery as well as with possible transfusions if needed. I discussed this at length with the patient along with risks and benefits of it. He understood and is comfortable with that. Thank you again for allowing us to be part of your patient's care. Please don't hesitate to contact me if you have any further questions. Signed and authenticated by: Hilario Lucas [facility] [address] [place] [address]
--- NOTE | 2024-05-25 23:57 | P.DS ---
Providers Date of admission: 05/11/24 20:21 Attending physician: Huseyin Doherty Consults: 05/11/24 20:20 Consult Physician Routine Consulting Provider: Hilario Holland Consult Reason/Comments: back pain Do you want consulting provider notified?: Yes 05/14/24 14:11 Consult Physician Routine Consulting Provider: Gabriel Pickering Consult Reason/Comments: anemia Do you want consulting provider notified?: Yes 05/15/24 16:16 Consult Physician Routine Consulting Provider: Jesse Dorsey Consult Reason/Comments: ID management s/p revision T7-pelvis decompr fusion Do you want consulting provider notified?: Yes Primary care physician: [facility] Course: Final Diagnosis Severe low back pain with acute on chronic radiculopathy, status post open treatment of T9 fracture with T7-T10 stabilization with exploration and washout T8-T9 region pain, possibly secondary to T9 fracture Elevated platelets anemia, likely chronic, iron deficiency noted Elevated white count, trending down History of revision of [id number] decompression and fusion with open treatment of an L3 fracture previously History of chronic back pain Gastroesophageal reflux disease History of frequent migraines History of anxiety Former smoker Daily THC use Hyperlipidemia Discharge Disposition Stable for discharge home with 5 weeks of IV ceftriaxone. Patient wants to return home with homecare he does not want rehab. He will continue bowel regimen while on narcotics. He is urinating without difficulty. Hospital Course This is a 53-year-old male who was recently admitted with back pain has been chronic and ongoing follows with Dr. Holland has had multiple back surgeries scheduled to undergo surgical intervention of the thoracic spine this admission. Patient has been having generalized weakness and frustration as he is not getting better and continues to be in significant pain and reports to feeling he has a poor quality of life. P I atient is from a 35 status post open treatment of T9 fracture with T7-T10 stabilization with exploration and washout. Patient is out of the ICU maintained on the medical surgical floor doing relatively well. Patient reports his pain is managed and he is different sensations he did not previously have. Patient reporting bilateral lower extremity tingling and feels his surgical site is burning. Multiple pain medication changes have been made. He has been up ambulating and indwelling shah catheter removed. Family concerned with the increased drainage from the surgical wound. It is clean and approximated. Final wound cultures reveal streptococcus gordonii with m icrosensitivities available. Patient does continue on a course of IV antibiotics under the care of infectious disease and will require IV antibiotics at discharge. Discussion at the bedside with patient, , orthopedic PA and patient will be discharged home with current pain regimen. Patient will be discharging with 5 weeks of IV rocephin daily. Please see medication reconciliation for a list of current medications. Thank you for allowing us to participate in the care of this patient. The impression and plan of care has been dictated by Corie Pineda, Nurse Practitioner as directed. Dr. Herberth MD I have performed a history and physical examination and medical decision making of this patient, discussed the same with the dictator, and agree with the dictators assessment and plan as written, documented as a scribe. Based on total visit time, I have performed more than 50% of this visit. Patient Condition at Discharge: Stable Plan - Discharge Summary New Discharge Prescriptions: New Pregabalin [Lyrica] 150 mg PO BID #28 cap methocarbamoL [Robaxin-750] 1,500 mg PO TID #42 tab Sennosides/Docusate Sodium [Senna Plus 8.6-50 mg Softgel] 1 each PO DAILY #20 capsule cefTRIAXone [Rocephin] 2,000 mg IVP Q24HR #40 each oxyCODONE-APAP 7.5-325MG [Percocet 7.5-325 mg] 1 tab PO Q6HR PRN #28 tab PRN Reason: Pain Continue SUMAtriptan succinate [Imitrex] 50 mg PO DAILY PRN PRN Reason: Migraine Headache Famotidine [Pepcid] 20 mg PO BID Vitamin C (Unknown Dose) 1 tab PO DAILY Pregabalin [Lyrica] 150 mg PO BID 14 Days #30 cap fentaNYL 25MCG/HR PATCH [Duragesic 25MCG/HR] 25 mcg TRANSDERM Q72H methocarbamoL [Robaxin-750] 1,500 mg PO TID PRN PRN Reason: muscle pain Naproxen 500 mg PO BID-W/MEALS PRN PRN Reason: Pain Rosuvastatin [Crestor] 10 mg PO HS Pantoprazole Sodium [Protonix] 40 mg PO DAILY Fenofibrate [Lofibra] 160 mg PO DAILY Terbinafine [LamISIL] 250 mg PO DAILY Vitamin D (Unknown Dose) 1 tab PO DAILY Discontinued oxyCODONE-APAP 7.5-325MG [Percocet 7.5-325 mg] 1 tab PO Q6HR PRN PRN Reason: Pain Discharge Medication List SUMAtriptan succinate [Imitrex] 50 mg PO DAILY PRN 12/12/17 [History] Pantoprazole Sodium [Protonix] 40 mg PO DAILY 04/16/21 [History] Fenofibrate [Lofibra] 160 mg PO DAILY 02/01/23 [History] Terbinafine [LamISIL] 250 mg PO DAILY 01/28/24 [History] Famotidine [Pepcid] 20 mg PO BID 04/16/24 [History] Vitamin C (Unknown Dose) 1 tab PO DAILY 04/16/24 [History] Vitamin D (Unknown Dose) 1 tab PO DAILY 04/16/24 [History] Pregabalin [Lyrica] 150 mg PO BID 14 Days #30 cap 04/19/24 [Rx] Naproxen 500 mg PO BID-W/MEALS PRN 05/11/24 [History] Rosuvastatin [Crestor] 10 mg PO HS 05/11/24 [History] fentaNYL 25MCG/HR PATCH [Duragesic 25MCG/HR] 25 mcg TRANSDERM Q72H 05/11/24 [History] methocarbamoL [Robaxin-750] 1,500 mg PO TID PRN 05/11/24 [History] Pregabalin [Lyrica] 150 mg PO BID #28 cap 05/21/24 [Rx] Sennosides/Docusate Sodium [Senna Plus 8.6-50 mg Softgel] 1 each PO DAILY #20 capsule 05/21/24 [Rx] cefTRIAXone [Rocephin] 2,000 mg IVP Q24HR #40 each 05/21/24 [Rx] methocarbamoL [Robaxin-750] 1,500 mg PO TID #42 tab 05/21/24 [Rx] oxyCODONE-APAP 7.5-325MG [Percocet 7.5-325 mg] 1 tab PO Q6HR PRN #28 tab 05/21/24 [Rx] Follow up Appointment(s)/Referral(s): [facility], [NON-STAFF] - As Needed Reginald Wesley DO [Primary Care Provider] - 05/31/24 2:15 pm [facility], [REFERRING] - As Needed (Infusion will deliver this evening between 6-8p.) Hilario Holland DO [Doctor of Osteopathic Medicine] - 06/04/24 2:45 pm (With Bethany) Jesse Dorsey MD [STAFF PHYSICIAN] - 1 Week (Office not answering at time of discharge. Please call for follow-up appointment.) Jong Whiting [NON-STAFF] - As Needed (TLSO back brace) Ambulatory/Diagnostic Orders: Basic Metabolic Panel [LAB.AMB] Location: None Selected C Reactive Protein [LAB.AMB] Location: None Selected Complete Blood Count w/diff [LAB.AMB] Location: None Selected Erythrocyte Sedimentation Rate [LAB.AMB] Location: None Selected Activity/Diet/Wound Care/Special Instructions: Spine Discharge and Recovery Instructions Date of Surgery: 05/15/2024 Diagnosis: T9 FRACTURE WITH PROXIMAL JUNCTIONAL FAILURE ABOVE T9-PELVIS DECOMPRESSION AND FUSION POSSIBLE HARDWARE FAILURE T9 KYPHOSIS T9 SECONDARY TO THE FRACTURE Procedure: OPEN TREATMENT OF T9 FRACTURE WITH T7-10 STABILIZATION WITH EXPLORATION AND WASHOUT Medications: See medication list All medication refills should be obtained through your primary care doctor or your clinic spine surgeon. Please discuss prescription refills at your follow up appointment. Do not call the hospital for medication refills. Dressing: Leave your dressing in place for a total of 5 days post operatively. Then you may remove your dressing and leave open to air. Keep the area clean and if not able to keep area clean, then cover with sterile gauze and tape. Showering: You may shower 3 days after your procedure allowing soap and water to run over incision. Do not scrub. Do not soak. Blot dry. Follow up: Please confirm a follow up appointment with your surgeon 3 weeks post operatively. Please make an appointment to follow up with your PCP in 1-2 weeks after surgery for evaluation '3 phase, 3-week plan' POST OP WEEKS 1-3 1. Lifting/carrying/pushing/pulling limited to less than 5 pounds. 2. Do not sit for longer than 15 minutes at one time. Get up and walk around. Prolonged sitting is NOT advised. If you lay down, see if you can tolerate laying down on you front (belly side) 3. Walk for periods of 15 minutes = 1 mile but no longer; do it multiple times times each day. 4. Ice your low back after activity. POST OP WEEKS 3-6 1. Lifting limited to less than 20 pounds. 2. Do not sit for longer than 30 minutes at a time. Frequently change positions. Use a sit-to stand workstation or take frequent breaks from sitting if you have returned to work. 3. Walk for 30 minutes each day. If possible, do these three or more times a day POST OP WEEKS 6+ At your 6-week appointment we will give you a physical therapy referral to focus on a core stabilization and strengthening program. You should also work on leg & buttock strengthening, hamstring & quadriceps stretching, and continue a low impact aerobic activity program such as swimming, walking, or riding a stationary bicycle. During the initial 6 weeks after your surgery, you are at the highest risk of re-injuring your spine. You should generally avoid BLT's (bending, lifting and twisting combination motions) and follow the above guidelines to reduce the chance of reinjury. You can anticipate post op appointments in our office at approximately 3 weeks and 6 weeks after your surgery. INCISION CARE: If your incision is not draining you do NOT need to cover it with a dressing. Keep your incision clean, dry and intact. In most cases, we apply skin glue, gilmar or sutures to the incision at the time of surgery. This will be like a crust or have the appearance of a scab and will fall off in time on its own. The stitches or gilmar need to be removed at 3 weeks post op appointment. You may begin to shower 3 days after surgery (this allows the glue to modi well). However, please avoid scrubbing the inc ision site or peeling off any of the skin glue. This will ensure optimal healing of your incision. Also, during this time avoid soaking the incision area in water - this includes swimming pools, hot tubs or baths. No ointments, lotions or oils on the incision until your surgeon allows. Leave gilmar, sutures or glue in place. Neurological dysfunction that comes on suddenly can also be a sign of a stroke. Below some common symptoms of a stroke are listed: B - balance difficulty such as sudden onset walking or leaning to one side - NEW E - eye problem such as sudden double vision or trouble seeing on one side - NEW F - Facial weakness or numbness on one side - NEW A - Arm or leg weakness or numbness on one side - NEW S - Slurred speech or difficulty with word finding - NEW T - Time is BRAIN! Call 911 as soon as you recognize these symptoms Diet: Consume a regular diet rich in vegetables and lean protein such as chicken or fish. You should consume in a ratio of approximately 20% fats|40% carbohydrates|40%protein. Vegetables, sweet potatoes, brown rice or quinoa are examples of good carbohydrates. Chips, white bread, cookies and sweets/sugar are examples of bad carbohydrates. Limit your bad carbs, go wild with good carbs. "Life's Simple 7" Guidelines as per [place] [employer] These will help you reclaim your life after surgery and casting wheel operator helper in your recovery, keeping in mind your restrictions. (1) Get Active. Physical activity can help people lose weight, control high blood pressure and cholesterol, feel emotionally better, and sleep better. (2) Control Cholesterol. Avoid a diet high in saturated fat, trans fat, & cholesterol. Limit whole milk & cream, ice cream, butter, egg yolks, processed meats (like sausage and hot dogs), and fatty meats. Choose healthy foods that are low in saturated fat, trans fat and cholesterol which include: Fruits and vegetables, fiber rich grain products (like whole grain pasta and brown rice), lean meat such as chicken, fish, nuts, seeds, and legumes. (3) Eat Better. Eat small portions. Shop at the grocery with a list and do not stray from it. Tips for a healthy diet include: Limit sodium intake to less than 1500mg daily, avoid prepackaged, processed, and fast foods, choose a diet rich in fruits, vegetables, and whole grain, high fiber foods, and limit saturated & cholesterol in your diet. (4) Manage Blood Pressure. If you have high blood pressure, you should have a cuff at home so that you can check your blood pressure regularly. Be sure you have a good cuff. An arm one is generally better than a wrist one. Bring the cuff to a doctor's appointment to validate that the measurements that your cuff are taking are accurate. Take your blood pressure twice daily when you are sitting down and relaxing. Record the numbers in a log and bring this log with you to your doctors' appointments. (5) Lose Weight if your BMI is above 25. A healthy BMI is between 19-25. To calculate Your BMI, you may use a Standard BMI Calculator on the NIH BMI website: <www.nhlbi.nih.gov/guidelines/obesity/BMI/bmicalc.htm>. Weigh oneself daily. If you are overweight, set a goal to lose weight. A pound a week loss if needed is a good target. (6) Reduce Blood Sugar. Limit foods and liquids with "added sugars." (Added sugars include sucrose, fructose, glucose, maltose, dextrose, high fructose corn syrup, corn syrup, concentrated fruit juice and honey). (7) Stop Smoking. If you smoke, quitting smoking is one of the best things that you can do for your health. Smoking increases your risk of heart attack, stroke, and peripheral vascular disease, which is a build-up of plaque in your arteries. Please discard all the cigarettes and lighters in your house. Have a plan for what you will do when you have the urge to smoke. Direct and second- hand smoke shortens your life as well as the lives of your family, friends and others around you. For your health and the health of those around you, please consider quitting! Proper Bending Body Mechanics: Maintain a wide stance with one foot slightly in front of the other. Keep your back straight. Bend utilizing the strength in your hips and knees. Do not bend at the waist. Maintain the lifted object at your waist-level close to your body. Avoid lifting weight that causes immediately pain or pain anywhere in the body afterwards. Smoking/Nicotine If there was ever one thing that you could do to increase your overall health, decrease your risk of cardiovascular problems by about 39% the second you make the choice, it is to STOP SMOKING. Your body's most instant gratification is the second you stop smoking. We have all heard the studies, read the articles but it is true, smoking is extremely bad for your overall health, and moreover it is detrimental to your bone health. Nicotine, IN ANY FORM, kills bone cells, prevents your body from healing fractures, and significantly prolongs healing after surgery. In spine surgery specifically, it increases your risk of not healing your bones to create a fusion and increases your risk of having a revision surgery due to this up to 60%. I know it is hard. I know it feels impossible. But there are ways. Take control of your life. We are here to help you through it. And when you are ready, ask us and we can direct you to help if you desire. Use the START Plan to Quit Smoking (please visit the Helpguide.org website lis bindu below for more information): S = Set a quit date. Choose a date within the next 2 weeks, so you have enough time to prepare without losing your motivation to quit. If you mainly smoke at work, quit on the weekend, so you have a few days to adjust to the change. T = Tell family, friends, and co-workers that you plan to quit. Let your friends and family in on your plan to quit smoking and tell them you need their support and encouragement to stop. Look for a quit stanton who wants to stop smoking as well. You can help each other get through the rough times. A = Anticipate and plan for the challenges you'll face while quitting. Most people who begin smoking again do so within the first 3 months. You can help yourself make it through by preparing ahead for common challenges, such as nicotine withdrawal and cigarette cravings. R = Remove cigarettes and other tobacco products from your home, car, and work. Throw away all your cigarettes (no emergency pack!), lighters, ashtrays, and matches. Wash your clothes and freshen up anything that smells like smoke. Shampoo your car, clean your drapes and carpet, and steam your furniture. T = Talk to your doctor about getting help to quit. Your doctor can prescribe medication to help with withdrawal and suggest other alternatives. If you can't see a doctor, you can get many products over the counter at your local pharmacy or grocery store, including the nicotine patch, nicotine lozenges, and nicotine gum. Resources for Quitting Smoking: <https://www.[place].gov/documents/[facility]/Quit_Tobacco_Resource s_for_patients_313480_7.pdf> Supplementation: Take recommended dosages of Vitamin D and Calcium to help fortify your bones and help them to heal. See your health maintenance packet for dosages and recommended levels. DVT/VTE prophylaxis: You will be given compression stockings from the hospital. Wear these daily for the first two weeks after surgery. You may take them off at night. You may be prescribed a medication to help thin your blood. Take this as directed. If you are not prescribed this medication, early and frequent ambulation has been shown to be the best prophylaxis to deep vein thrombosis and sequelae related to this event. Discharge Disposition: HOME WITH HOME HEALTH SERVICES
--- NOTE | 2024-05-31 14:44 | P.OP ---
Date of Procedure: 05/15/24 Preoperative Diagnosis: 1. T8-9 FRACTURE WITH PROXIMAL JUNCTIONAL FAILURE 2. HX OF REMOTE FALLS 3. 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 LE WEAKNESS WITH PARESTHESISAS 5. NEUROGENIC CLAUDICATION 6. PARAPLEGIA 7. BACK PAIN Postoperative Diagnosis: 1. T8-9 FRACTURE WITH PROXIMAL JUNCTIONAL FAILURE 2. HX OF REMOTE FALLS 3. 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 LE WEAKNESS WITH PARESTHESISAS 5. NEUROGENIC CLAUDICATION 6. PARAPLEGIA 7. BACK PAIN Procedure(s) Performed: 1. OPEN TREATMENT T8 AND T9 FRACTURES. 2. POSTEROLATERAL INSTRUMENTED FUSION AND STABILIZATION WITH SEGMENTAL INSTRUMENTATION T7-T10 WITH PROXIMAL TENSION BANDING OF T6-8. 3. INCISION AND DRAINAGE WITH IRRIGATION OF DEBRIDEMENT T8-PELVIS 72 CM X 34 CM X 15 CM USING THE FOLLOWING -KNIFE FOR INCISION AND SKIN REMOVAL -CURETTE FOR REMOVAL OF NECROTIC TISSUE, RONGURE FOR REMOVAL OF BONE AND MUSCLE 4. REPAIR OF DURAL RENT WITH PATCH GRAFT REQUIRING LAMINECTOMY L1-2 REGION USE OF IONM MOD22: THIS CASE TOOK 80% LONGER THAN EXPECTED DUE TO THE EXTENT OF DISEASE, MULTIPLE REVISION SCENARIO, POOR BONE QUALITY, COMPLEXITY OF PATHOLOGY AND TECHNICALITY OF THE REPAIR. Implants: MATT[employer] RODS AND SCREWS ZACHARY TO ZACHARY CONNECTORS MAGNATOS Anesthesia: GETA Surgeon: Hilario Holland Staffing Administrator #1: Royce Olivares (was present and assisted with all aspects of the case from position to dressing placement) Estimated Blood Loss (ml): 300 IV fluids (ml): 2,000 Urine output (ml): 350 Pathology: other Condition: stable Disposition: PACU Indications for Procedure: Wiliam Tarango is a 53-year-old malepresenting for evaluation of midthoracic and low back pain as well as lower extremity weakness and pain. It was my pleasure to have seen and examined Sam. In our visit today we have had a chance to go over subjective complaints, physical examination findings and treatments including the natural course history without intervention and various interventional options. The patients imaging demonstrates new fracture of T9 with proximal segment and proximal junctional failure T9 with fractures to this area and kyphosis there is also fluid collection which is noted distally. Does not seem compressive however patient is experiencing symptoms related to this. On physical exam, Wiliam demonstrates bilateral lower extremity weakness 4 minus out of 5. Bilaeral LE paresthesias more so in his right lower extremities. Left lower extremity had radiculopathy previously right lower extremity radiculopathy tensioning signs. No overt dermatomal deficits no perineal numbness or tingling at this time. I have explained to the patient that as their condition progresses it will cause further neurological deficits and eventual paralysis. Based on the patients imaging, physical exam, and the rapid progression and disabling nature of their symptoms, at this time I recommend surgery in the form or a: open treatment T9 fracture with T7 through T10 stabilization decompression and washout. I discussed the risk and benefits of this procedure at length withSamard. The patient and his agreed to considered pursuing the procedure abovementioned. Prior to surgery, she should follow up with her PCP (Cardio, ID, IM etc) for clearance. Questions were invited and answered, and the patient wishes to proceed as outlined below. Currently, I am recommendin. open treatment T9 fracture with T7 through T10 stabilization decompression and washout Description of Procedure: OPEN TREATMENT T9 BURST FRACTURE WITH T7-10 STABILIZATION AND FUSION WITH INCISION AND DRAINAGE, IRRIGATION AND DEBRIDMENT LUMBAR SPINE The patient was seen and examined in the preoperative area. All preoperative protocols were followed. Informed consent was obtained, risks and benefits of the procedure were discussed at length. Risks including bleeding infection damage to the surrounding tissue and risk of reoperation were discussed with the patient. Risk of anesthesia up to and including was discussed with the patient. These are outlined in the risk review. They were willing to accept these risks and all of the risks of surgery. The patient was given a weight- based dose of antibiotics in the form of 2 g Ancef. The patient was seen and evaluated by the anesthesia team who deemed them fit for surgery. The site was marked, the patient was willing to proceed with the procedure. The patient was transferred to the operative suite by the Department of anesthesia. They were then drifted off to sleep by the department anesthesia and GETA was performed. The patient tolerated this well. pre-positioning motors were obtained.Rosa in place from the floor. Once confirmation of lines and ventilation the patient was secured and the patient was transferred to a [prone Micah table very carefully] with the Post-positioning motors remaining stable. All bony prominences including wrists, elbows, axilla, chest, hips, and thighs, and feet were padded very well. Special attention was paid to the genitalia and these were padded accordingly. SCDs were placed on bilateral lower extremities and were connected. Arms were well padded and placed tucked at his side thumbs down. Once in position, again we confirmed good ventilation capabilities and that lines were running appropriately. The patient's thoracolumbar spine was then exposed. 1010s were placed outlining the incision site. Standard alcohol was used to clean the incision site and allowed to dry. C-arm was used to biomark the patient and confirm level for incision which was marked with a skin marker. Operative briefing was performed with all teams and everyone in agreement to proceed. The patient was then prepped and draped in a normal sterile fashion. Timeout was then performed and all parties were in agreement with the procedure to be performed. Midline skin incision made over the previously bio-marked area and dissection taken down to the lamina of T6-pelvis Subperiosteal dissection was then performed and previous hardware from T9 to Pelvis was identified and cleared. There was purulent looking material deep to the facia which had healed well. This was cultured. There was cultures taken deep and superficial. The hardware was cultured. Exposure cranial revealed unstable fracture T8-9 with hardware failure T9. Proximal junctional failure T8-9. With severe instability. The are was then debrided of any phlegmon looking tissues, necrotic tissues using curette and rongure. There was an area on the right side at L1-2 under further bone removal with kerrison rongure where there was revealed a dural rent which was identified and fixed with prolene suture 6-0. There was water tight closure here. The area was again irrigated with irricept. We then proceeded to placement of screws and reduction of fracture. Set screws for the top 3 levels were removed. The screws at T9 were tested and were stable. We then using lateral flurosocopy placed using freehand technique screws bilaterally at T7 and T8. Once these were placed AP and LAT images confirmed good placement. Their purchase was mediocre given his bone quality and so they were then cemented into position. This was done under lateral fluroscopy without extravasation or complication. We then decorticated joints with high speed rissa, removed lamina and TP of these areas except for T6 and T7 for tension banding. Irricept and betadine were used to irrigated again. The rods were then replaced into scres and set screws placed. Zachary to Zachary connectors were placed and were attached to the new construct. These had been bend accordingly to allow for good reduction of fracture which was done under lateral imaging. IONM stayed stable through the reduction. We then placed set screws here and final tightened them. Meticulous hemostasis was done. AP and LAT images confirmed good placement of hardware, good reduciton of fracture and good stability. The wound was then copiously irrigated with 3 L of Ancef irrigation followed by 3 L of gentamicin irrigation followed by 2L betadine solution, 2 bottles of Irricept aand then washed with 3 L of normal sterile saline. Facet joints were further drilled at each level to allow for fusion Surgicel, duraseal and tisseal were palced was placed over the dura. 2 g of powdered vancomycin was then placed deep. Deep drain was placed and sec ured to the skin with a stitch. We then proceeded with layered closure first in the deep fascia with #1 PDS then in the deep fascia. 0 Vicryl was used in the deep subq fascia and 2-0 in the superficial subq. Skin gilmar then approximated skin edges. The wound edges approximated very well. The wound was then cleaned and dressed sterilely with an operative foam dressing 4 x 4 and Tegaderms. The patient was transferred back to their hospital bed atraumatically. The patient was then awakened and extubated by the department of anesthesia having tolerated the procedure very well with no complications. They were transferred to the postoperative care unit in stable condition.
== END 2024-05-21 16:39 | disposition home health service (06) | DRG 856 ==
LOC: EC 16:55 → 6NMEDSUR 20:20 → OBSVTOIN 20:21 → 6NMEDSUR 21:36 → 4SSUR 05-14 13:53 → 2SICU 05-14 16:53 → 4SSUR 05-16 14:51
PROVIDERS: ADMIT Internal Medicine; ATTEND Internal Medicine
PROC: 0RG60AJ Fusion of Thoracic Vertebral Joint with Interbody Fusion Device, Posterior Approach, Anterior Column, Open Approach (ICD-10-PCS; 2024-05-15)
PROC: 0R9 Upper Joints, Drainage (ICD-10-PCS; 2024-05-15)
PROC: 0PB40ZZ Excision of Thoracic Vertebra, Open Approach (ICD-10-PCS; 2024-05-15)
PROC: 0QB00ZZ Excision of Lumbar Vertebra, Open Approach (ICD-10-PCS; 2024-05-15)
PROC: 0QB10ZZ Excision of Sacrum, Open Approach (ICD-10-PCS; 2024-05-15)
PROC: 0QB20ZZ Excision of Right Pelvic Bone, Open Approach (ICD-10-PCS; 2024-05-15)
PROC: 0QB30ZZ Excision of Left Pelvic Bone, Open Approach (ICD-10-PCS; 2024-05-15)
PROC: 0PS40ZZ Reposition Thoracic Vertebra, Open Approach (ICD-10-PCS; 2024-05-15)
PROC: 01N80ZZ Release Thoracic Nerve, Open Approach (ICD-10-PCS; 2024-05-15)
PROC: 00U20JZ Supplement Dura Mater with Synthetic Substitute, Open Approach (ICD-10-PCS; principal; 2024-05-15 09:45)
DX: T81.41XA Infection following a procedure, superficial incisional surgical site, initial encounter (principal); J86.9 Pyothorax without fistula; G97.41 Accidental puncture or laceration of dura during a procedure; S22.071A Stable burst fracture of T9-T10 vertebra, initial encounter for closed fracture; S22.069A Unspecified fracture of T7-T8 vertebra, initial encounter for closed fracture; M46.24 Osteomyelitis of vertebra, thoracic region; D50.9 Iron deficiency anemia, unspecified; F39 Unspecified mood [affective] disorder; T84.226A Displacement of internal fixation device of vertebrae, initial encounter; L76.34 Postprocedural seroma of skin and subcutaneous tissue following other procedure; D53.9 Nutritional anemia, unspecified; M40.14 Other secondary kyphosis, thoracic region; K21.9 Gastro-esophageal reflux disease without esophagitis; E78.5 Hyperlipidemia, unspecified; F41.9 Anxiety disorder, unspecified; B95.4 Other streptococcus as the cause of diseases classified elsewhere; M46.44 Discitis, unspecified, thoracic region; G43.909 Migraine, unspecified, not intractable, without status migrainosus; G89.29 Other chronic pain; Z53.8 Procedure and treatment not carried out for other reasons; R29.6 Repeated falls; Z79.891 Long term (current) use of opiate analgesic; Z79.899 Other long term (current) drug therapy; Z87.891 Personal history of nicotine dependence; Z98.1 Arthrodesis status; Z91.81 History of falling
CPT/HCPCS: 36410; 36415; 36573; 71045; 72070; 72128; 72131; 72148; 72157; 76937; 80048; 80053; 80202; 82565; 82728; 83540; 83550; 85025; 85027; 85610; 85652; 86140; 86850; 86900; 86901; 86920; 87070; 87075; 87077; 87102; 87186; 87205; 96374; 96375; 99285

== ENCOUNTER → 2024-05-11 | Outpatient (CLI) | payer MEDICARE, OTHER | END | disposition home or self-care (01) | LOC: RADMRIMAIN 16:16 | PROVIDERS: ATTEND Family Medicine | DX: Z53.9 Procedure and treatment not carried out, unspecified reason (principal) ==